=== PATIENT | male | born 1955 | race Caucasian/White ===

== ENCOUNTER 2024-12-25 20:55 | Emergency (ER) | payer MEDICARE, MEDICAID, SELFPAY ==
--- NOTE | ~2024-12-25 | CT_ITS ---
CLINICAL HISTORY: head strike CT cervical spine without contrast Comparison: None provided Findings: Fracture of the anterior upper aspect of the T1 is age indeterminate by CT and concerning for acuity and/or re-injury (imaged 21 of series 16). Mild cervical vertebral height losses appear old/chronic without acute cervical spine fracture. Reversal of the cervical lordosis. Mild anterolisthesis at C4-C5. Disc osteophyte complexes are multifocal with mild-moderate spinal canal stenosis by CT of the C5-C6 and C6-C7. Multifocal foraminal narrowing noted in the also most pronounced at C5-C6 and C6-C7. Vacuum disc phenomenon, including cervicothoracic junction. Ligament calcifications and facet arthropathy are multifocal. No paraspinal hematoma. Subcutaneous edema is noted, including dependently. Mild scarring and motion of the imaged lung apices. IMPRESSION: 1. Lucency in anterior aspect of the T1 vertebral body concerning for acuity and/or re-injury with mild height loss of the T1 compression fracture. 2. Imaged cervical vertebral height losses appear old/chronic. This document has been electronically signed by: Gordo Jacob MD on 12/26/2024 00:04:40
--- NOTE | ~2024-12-25 | CT_ITS ---
CLINICAL HISTORY: head strike CT head without contrast Comparison: None provided Findings: No acute intracranial hemorrhage accounting for motion artifacts. Mild-moderate volume loss is generalized and greater than expected for age. Mild white matter lesions nonspecific and may reflect small-vessel ischemic disease. No large arterial territorial infarction by CT, accounting for artifacts. Vascular calcifications noted. Soft tissue swelling and scalp hematoma including over the right frontal convexity. No acute skull fracture. No acute appearing or suspicious air-fluid levels of the imaged paranasal sinuses. Imaged mastoid air cells are well aerated. Previous cataract procedure changes. IMPRESSION: 1. No acute intracranial abnormality by CT. 2. Soft tissue swelling and scalp hematoma, including of the right frontal convexity. No acute skull fracture. This document has been electronically signed by: Gordo Jacob MD on 12/26/2024 00:05:44
[2024-12-25 21:03] VITALS: BP 155/81; BP 196/79; PULSE 102; PULSE 92; RESP 16; TEMP 37; O2SAT 100; BMI 31.1
--- NOTE | 2024-12-25 21:23 | PC.NURSE ---
pt ajay from [facility], a&ox2 at baseline. per ems and staff, pt had been looking out window when he hit his head against the window, pt denies pain. abrasion noted to top of head. 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 this rn placed elopement band on pt at this time for safety.
--- NOTE | 2024-12-25 22:07 | PC.NURSE ---
pt states he had urinated on himself, pt taken into room to change, pt screaming i am going to kill somebody , security at bedside, pt states he wants to leave.
--- OUTSIDE RECORDS SUMMARY | 2024-12-25 22:07 | XMS_ITS | Patient Health Record ---
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 Dining Car Name Role Phone Phyllis Meyer MD Primary Care Provider Unavailabl e Reason For Referral No Information Medications Medication SIG (Take, Route, Frequency, Duration) Notes Start Date End Date Status NovoLOG Mix 70/30 *please review for potential update for e-prescription and drug interaction check* 01/11/2015 Active SEROquel 100 MG 100 mg in the am and 400 mg at hs Oral 01/11/2015 Active Colace 100 MG Oral 01/11/2015 Acti ve Benztropine Mesylate 1 MG 1 po bid Oral 01/11/2015 Active Simvastatin 40 MG Oral 01/11/2015 Active ZyPREXA 10 MG 30 mg at hs Oral 01/11/2015 06/04/18 Active Lantus *please review f or potential update for e-prescription and drug interaction check* 01/11/2015 Active clonazePAM 1 MG 1 po bid Oral 01/11/2015 Active fluPHENAZine HCl 10 MG Oral 01/11/2015 Active Sertraline HCl 100 MG Oral 01/11/2015 Active VITAMIN D 1000 UNIT CAPS 1 PO Q AM *please review for potential update for e-prescription and drug interaction check* 01/11/2015 Active Vasotec 10 MG Oral 01/11/2015 Acti ve RisperDAL 4 MG Oral 01/11/2015 Act chace Depakote ER 250 MG 3 a day Oral 01/11/2015 900 Active Aspir-Low 81 MG 1 Po Q day Oral 01/11/2015 900 Active Problems Problem Type SNOMED Code ICD Code Onset Dates Problem Status W/U Status Risk Notes Problem Cerebral atherosclerosis (I67.2) 5 Active confirmed Problem Dizziness and giddiness (187074265) Dizziness and giddiness (R42) 5 Active confirmed Plan Of Treatment No Information Insurance Providers Payer Name Payer Address Payer Phone Subscriber Number Group Number Insured Name Patient Relationship to Insured Coverage Start Date Coverage End Date [employer] of [place] [address] [place] [id number] Santy Martino Self - patient is the insured [facility] [address] [place] [address] [id number] Santy Martino Self - patient is the insured
--- OUTSIDE RECORDS SUMMARY | 2024-12-25 22:07 | XMS_ITS | Clinical Summary ---
Author Organization [facility] Address [address] [facility] [address] [place] [id number] Care Team Providers Care Torch Heater Name Role Phone Ezra Mack Md Primary Care Provider + [phone] Allergies No known active allergies Medications trospium 20 mg tablet Take 1 tablet by mouth twice daily Give 1 tablet by mouth two times a day for urinary give on empty stomach 05/04/20 23 Active senna 8.6 mg tablet Take 1 tablet by mouth once daily as needed for constipation 05/04/20 23 Active risperiDONE 2 mg tablet Take 1 tablet by mouth daily Give 1 tablet by mouth one time a day for schizophrenia 05/10/20 23 Active ELIZABETH PEN NEEDLE 32 gauge x 5/32 Needle 02/08/20 24 Active pantoprazole 40 mg tablet,delaye d release (DR/EC) Take 40 mg by mouth daily 01/31/20 24 Active metoprolol tartrate 25 mg tablet Take 1 tablet by mouth twice daily 05/04/20 23 Active LORazepam 0.5 mg tablet Take 0.5 mg by mouth 0 24 Active lithium carbonate 450 mg tablet extended release SR Take 1 tablet by mouth at bedtime 05/09/20 23 Active TRESIBA FLEXTOUCH U-100 100 unit/mL (3 mL) Insulin Pen Administer subcutaneously 01/30/20 24 Active fluticasone furoate 50 mcg/actuation Disk with Device Inhale 100 mcg daily Asthma 05/05/20 23 Active ARNUITY ELLIPTA 100 mcg/actuation Disk with Device 11/26/19 24 Active FLUoxetine 40 mg capsule Take 40 mg by mouth daily 01/05/20 24 Active fLUoxetine 20 mg capsule Take 20 mg by mouth daily 11/26/19 24 Active TRULICITY 3 mg/0.5 mL Pen Injector 01/31/20 24 Active divalproex 500 mg tablet,delaye d release (DR/EC) Take 1 tablet by mouth every morning Give 1 tablet by mouth in the morning for schizophrenia 05/09/20 23 Active divalproex 250 mg tablet,delaye d release (DR/EC) Take 1 tablet by mouth at bedtime Give 1 tablet by mouth at bedtime for schizophrenia give with 500mg for total dose of 750mg 05/09/20 23 Active cloZAPine 100 mg tablet Take 100 mg by mouth daily Active blood sugar diagnostic (ONETOUCH ULTRA BLUE TEST STRIP) Strip three times daily 01/30/20 24 Active LIPITOR 10 mg tablet Take 1 tablet by mouth every evening Give 1 tablet by mouth in the evening for hypercholesterolemia Avoid grapefruit juice 05/04/20 23 Active aspirin 81 mg tablet,delaye d release (DR/EC) Take 1 tablet by mouth daily 05/08/20 23 Active albuterol HFA 90 mcg/actuation HFA Aerosol Inhaler Inhale 2 puffs every 4 hours as needed for wheezing or shortness of breath 05/04/20 23 Active LACTULOSE ORAL Take by mouth 05/13/20 23 Active insulin degludec (TRESIBA FLEXTOUCH U-100) 100 unit/mL (3 mL) Insulin Pen Administer 20 Units subcutaneously daily 05/05/20 23 Active clonazePAM 0.5 mg tablet Take 0.5 mg by mouth daily 04/26/20 23 Active Active Problems Problem Noted Date Diagnosed Date Thrombocytopenia 02/13/2024 Seizure-like activity 02/13/2024 OAB (overactive bladder) 02/13/2024 Aggression 02/13/2024 Peripheral neuropathy 02/13/2024 Tremor 02/13/2024 Passive suicidal ideations 10/10/2023 Overview (02/13/2024): ? Pt drank wiper fluid Type 2 diabetes mellitus without complications 1 07/05/2022 Paranoid schizophrenia 05/04/2023 Essential (primary) hypertension 05/04/2023 Dysphagia, oropharyngeal phase 05/04/2023 Alzheimer disease 05/04/2023 Resolved Problems Problem Noted Date Diagnosed Date Resolved Date Vomiting 02/13/2024 02/13/2024 Urinary hesitancy 02/13/2024 02/13/2024 Partial small bowel obstruction 02/13/2024 02/13/2024 Toxic metabolic encephalopathy 02/13/2024 02/13/2024 Hypophosphatemia 02/13/2024 02/13/2024 Hypernatremia 02/13/2024 02/13/2024 COVID-19 02/13/2024 02/13/2024 Constipation 02/13/2024 02/13/2024 Choking 02/13/2024 02/13/2024 Chest pain 02/13/2024 02/13/2024 Shock 05/04/2023 02/13/2024 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 05/04/2023 02/13/2024 Muscle weakness (generalized) 05/04/2023 02/13/2024 Metabolic encephalopathy 05/04/202304/2024 Drug induced subacute dyskinesia 05/04/2023 02/13/2024 Difficulty in walking, not e lsewhere classified 05/04/2023 02/13/2024 Cardiac arrest 05/04/2023 02/13/2024 Anemia 05/04/2023 02/13/2024 Respiratory arrest 05/04/2023 Acute respiratory failure 05/04/2023 Encounters Date Type Department Care Team Description 11/13/2024 Letter (Out) [facility] [address] [place] [id number] Mercedes Rodriguez 10/02/2024 Patient Outreach [facility] [address] [place] [phone] Marii Valadez Diabetes Mellitus; Hypertension; Appt Due from Last 3 Months Immunizations Immunization Administration Dates Next Due COVID-19 (MODERNA) Vaccine, 100mcg/0.5mL, 18YRS+, IM 04/14/2021,08/26/2020,07/29/2020 COVID-19 (MODERNA) Vaccine, 12YRS+, 50mcg/0.5mL 03/14/2023 Influenza Vaccine (Unspecified Formulation) 03/04 Pneumococ/Adult-Polysac (PPSV23) 06/25/2012 Pneumococ/Conjugate (PCV13) 06/06/2018 Surgical History Surgery Date Site/Laterality Comments APPENDECTOMY Medical History Medical History Date Comments 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 ([facility]) 05/04/2023 Acute respiratory failure ([facility]) 05/04/2023 Shock ([facility]) 05/04/2023 Metabolic encephalopathy 05/04/2023 Muscle weakness (generalized) 05/04/2023 Cardiac arrest ([facility]) 05/04/2023 Difficulty in walking, not e lsewhere classified 05/04/2023 Anemia 05/04/2023 Partial small bowel obstruct ion ([facility]) 02/13/2024 Choking 02/13/2024 Toxic metabolic encephalopathy 02/13/2024 Constipation 02/13/2024 Chest pain 02/13/2024 Hypernatremia 02/13/2024 Urinary hesitancy 02/13/2024 Covid-19 02/13/2024 Passive suicidal ideations 10/10/2023 ? Pt drank wiper fluid. seen at [facility] Social History Tobacco Use Types Packs/Day Years Used Date Smoking Tobacco: Never Assessed Sex and Gender Information Value Date Recorded Sex Assigned at Not on file Legal Sex Male 9:36 AM EDT Gender Identity Not on file Sexual Orientation Not on file Obstetrics History Plan of Treatment Health Maintenance Due Date Last Done Comments OFFICE VISIT 1957 * DIABETIC EYE EXAM 1973 * LIPID PROFILE 1973 * MICROALBUMIN 1973 HEP B INITIAL SCREENING 1975 PSA SCREEN DECISION: UPDATE W EDIT MODIFIERS 1977 DTAP/TDAP/TD VACCINE (1 - Tdap) 1978 HEP C SCREENING 1993 COLORECTAL SCREENING: UPDATE W EDIT MODIFIERS 2002 PERIODIC HEALTH REVIEW 2007 ZOSTER VACCINE (1 of 2) 2007 RSV Vaccine Adult (1 - Risk 60-74 years 1-dose series) 2017 PNEUMOCOCCAL VACCINE(S) 50+ (3 of 3 - PCV20 or PCV21) 06/06/2023 06/06/2018, 06/25/2012 COVID-19 Vaccine (5 - season) 2024 03/14/2023, 04/14/2021, 08/26/2020, Additional history exists * KIDNEY DISEASE SCREEN-(CREATININE) 05/14/2024 05/14/2023, 05/11/2023, 05/07/2023 * HEMOGLOBIN A1C (DM) 09/24/2024 03/26/2024 , 10/06/2023, 09/24/2023 FLU SEASONAL (#1) 02/02/2025 03/14/2023 HAEMOPHILUS INFLUENZA VACCINE Aged Out No longer eligible based on patient's age to complete this topic HEPATITIS A VACCINE Aged Out No longe r eligible based on patient's age to complete this topic HEPATITIS B VACCINE Aged Out No longe r eligible based on patient's age to complete this topic POLIO VACCINE Aged Out No longer elig ible based on patient's age to complete this topic RSV Vaccine //toddler Aged Out No longer eligible based on patient's age to complete this topic Procedures Procedure Name Priority Date/Time Associated Diagnosis Comments HEMOGLOBIN A1C - EXT Routine 03/26/2024 11:00 AM EDT from Last 3 Months or Most Recently Relevant to Health Maintenance Results * HEMOGLOBIN A1C - EXT (03/26/2024 11:00 AM EDT) HEMOGLOBIN A1C EXT 5.4 <=6.0 % [facility] us Outside Provider GENERAL LAB Final Result [facility] Attn: Dr. Charlie Lima [address] [facility] [place] [address] from Last 3 Months or Most Recently Relevant to Health Maintenance Insurance [place]ARE [place] Care Teams Torch Heater Relationship Specialty Start Date End Date Ezra Mack MD [address] [place] [id number] PCP - General Family Medicine 01/04/24
--- OUTSIDE RECORDS SUMMARY | 2024-12-25 22:07 | XMS_ITS ---
Author Organization [facility] Care Team Providers Care Director Of Career Resources Name Role Phone Juice Sparrow Unavailable Unavailable Grace Davis Unavailable Unavailable Cuco Ledezma Unavailable Unavailable Anthony Rollins Unavailable Unavailable Allergies and adverse reactions No Known Allergies Care Team Name Role Address Phone Organization Dates Cuco Ledezma PCP [address] [place] [address], [id number], [place] (Office): : [facility] 08/25/2024 - present Juice Sparrow [address] [facility], [place], [address], [place] (Office): : [facility] 08/25/2024 - present PennieDandreElsie Davis [address] [facility], [place], [address], [facility] (Office): : [facility] 08/25/2024 - present Anthony Rollins [address] [place], [address], [place] (Office): : : [facility] 08/25/2024 - present Goals Section Goals Description Status Target Date 1. Will have a decrease in verbal aggression thr ough next review Active 03/11/2025 2. Will have a decrease in self-harm through [facility] t review Active 03/11/2025 3. Will be compliant with al l aspects of treatment through next review Active 03/11/2025 Advanced Directives will be honored and reevaluated as needed thru next review. Active 03/11/2025 Care needs will be met at a facility of choice A ctive 03/11/2025 Resident will actively parti cipate in leisure pursuits, either independently or in recreational group activities to maintain current level of functioning through next review Active 03/11 Resident will attend at [facility] scheduled community out trip per quarter through next review Active 03/11/2025 Skin will remain in tact, fr ee from erythema, breakdown, excoriation or bruising until next review Active 03/11/2025 Will be able to make decisio ns about ADL/activity choices or preferences thru next review. Active 03/11/2025 Will be clean, dressed and w ell-groomed daily to promote dignity and psychosocial well-being thru next review. Active 03/11/20 25 Will be free of complication s related to diabetes thru next review. Active 03/11/2025 Will consume appropriate sophy unts of food and fluids to maintain nutritional status Active 03/11/2025 Will exhibit no signs or sym ptoms of aspirations such as coughing, fever, etc. thru next review. Active 03/11/2025 Will exhibit no signs or sym ptoms of gastric distress thru next review. Active 03/11/2025 Will express feelings of adj ustment to new surroundings by next review Active 03/11/2025 Will express that pain manag ement is within acceptable limits thru next review. Active 03/11/2025 Will have medication dose re duction/elimination as indicated thru next review. Active 03/11/2025 Will have no acute respiratory distress thru nex t review. Active 03/11/2025 Will have no adverse effects related to all ASA therapy thru next review. Active 03/11/2025 Will have no adverse effects related to anticonvulsant therapy thru next review. Active 03/11/2025 Will have no complications r elated to constipation thru next review. Active 03/11/2025 Will maintain good oral hygiene thru next review . Active 03/11/2025 Will meet with therapist to monitor mental statu s Active 03/11/2025 Will minimize risk for injury related to falls t hru next review. Active 03/11/2025 Will not exhibit any negative symptoms related t o trauma Active 03/11/2025 Will not experience a signif icant change in weight through next review Active 03/11/2025 Will participate with 1:1 vi sits with advocate a minimum of 1 time weekly through next review. I will also achieve and maintain a group attendance percentage of at least 50% through next review. Active 03/11/2025 Will receive assistance flora lee to meet ADL needs thru next review. Active 03/11/2025 Will remain free from compli cations related to HTN and HLD thru next review. Active 03/11/2025 Will remain free from compli cations related to Vitamin D deficiency thru next review. Active 03/11/2025 Will remain free from compli cations related to fatty liver thru next review. Active 03/11/2025 Will show improvement in mood/behavior thru next review. Active 03/11/2025 Will show no side effects of medication use thru next review. Active 03/11/2025 Will tolerate diet, texture and fluid consistency without signs and symptoms of aspiration Active 03/11/2025 Immunizations Immunization Status Vaccine Details Vaccine Code CodeSystem Date Notes TB 1 Step Mantoux (PPD) completed tuberculin skin test; unspecified formulation lotNumber: [id number] expiry: 01/09/2027 Mfg: sonafi Given 0.1 unit Right Forearm intradermally 98 CVX created date: 08/25/2024 consent date: 08/25/2024 administer ed date: 08/25/2024 Educated by on 08/25/2024 Prevnar 20 Pneumococcal conjugate (PCV20) cancelled Pneumococcal conjugate vaccine 20-valent (PCV20), polysaccharide [id number] conjugate, adjuvant, preservative free 216 CVX created date: 09/09/2024 consent date: 09/08/2024 Educated by on 09/09/2024 influenza, unspecified formulation completed influenza virus vaccine, unspecified formulation 88 CVX created date: 08/28/2024 administer ed date: 02/21/2024 SARS-COV-2 (COVID-19) vaccine, UNSPECIFIED completed SARS-COV-2 (COVID-19) vaccine, UNSPECIFIED 213 CVX created date: 08/28/2024 administer ed date: 03/14/2023 SARS-COV-2 (COVID-19) vaccine, UNSPECIFIED completed SARS-COV-2 (COVID-19) vaccine, UNSPECIFIED 213 CVX created date: 08/28/2024 administer ed date: 04/14/2021 SARS-COV-2 (COVID-19) vaccine, UNSPECIFIED completed SARS-COV-2 (COVID-19) vaccine, UNSPECIFIED 213 CVX created date: 08/28/2024 administer ed date: 08/26/2020 SARS-COV-2 (COVID-19) vaccine, UNSPECIFIED completed SARS-COV-2 (COVID-19) vaccine, UNSPECIFIED 213 CVX created date: 08/28/2024 administer ed date: 07/29/2020 Tdap completed tetanus toxoid, reduced diphtheria toxoid, and acellular pertussis vaccine, adsorbed 115 CVX created date: 08/28/2024 administer ed date: 06/11/2013 COVID-19, mRNA, LNP-S, PF, 50 mcg/0.5 mL completed SARS-COV-2 (COVID-19) vaccine, mRNA, spike protein, LNP, preservative free, 50 mcg/0.5 mL dose 312 CVX created date: 08/28/2024 administer ed date: 02/21/2024 Respiratory syncytial virus (RSV) vaccine, unspecified completed Respiratory syncytial virus (RSV) vaccine, unspecified 314 CVX created date: 08/28/2024 administer ed date: 02/21/2024 Pneumococcal conjugate PCV 13 completed pneumococcal conjugate vaccine, 13 valent 133 CVX created date: 08/28/2024 administer ed date: 06/06/2018 Hep B, adult completed hepatitis B vaccine, adult dosage 43 CVX created date: 08/28/2024 administer ed date: 01/16/2012 pneumococcal polysaccharide PPV23 completed pneumococcal polysaccharide vaccine, 23 valent 33 CVX created date: 08/28/2024 administer ed date: 06/25/2012 Medications Section Medication Name Status Code CodeSystem Dose Route Frequency Admin Type Sig Text Start Date End Date Fleet Enema Enema 7-19 GM/118ML active 402114 RXNORM 1 unit Rectal as needed PRN Insert 1 unit rectal ly every 24 hours as needed for Consti pation Use only if Bisaco dyl Suppos itory is ineffe ctive 2024 - Pantoprazole Sodium Oral Tablet Delayed Release 40 MG active 842680 RXNORM 1 tablet Oral one time a day Routine Give 1 tablet by mouth one time a day for GASTRO -ESOPH AGEAL REFLUX DISEAS E WITHOU T ESOPHA GITIS (K21.9 ) 2024 - Colace Oral Capsule 100 MG active 685015 6 RXNORM 1 capsul e Oral two times a day Routine Give 1 capsul e by mouth two times a day for Consti pation 2024 - Trulicity Subcutaneous Solution Auto-injector 3 MG/0.5ML active 583923 9 RXNORM 0.5 ml Subcuta neous one time a day Routine Inject 0.5 ml subcut aneous ly one time a day every Betty for TYPE 2 DIABET ES MELLIT US WITHOU T COMPLI CATION S (E11.9 ) 2024 - LORazepam Oral Tablet 1 MG aborted RXNORM 1 tablet Oral two times a day Routine Give 1 tablet by mouth two times a day for RESTLE SSNESS AND AGITAT ION (R45.1 ) 11/28 Aspirin Oral Tablet Chewable 81 MG active 691870 RXNORM 1 tablet Oral one time a day Routine Give 1 tablet by mouth one time a day for ESSENT IAL (PRIMA RY) HYPERT ENSION (I10) 2024 - Atorvastatin Calcium Oral Tablet 10 MG active 105036 RXNORM 1 tablet Oral at bedtime Routine Give 1 tablet by mouth at bedtim e for HYPERL IPIDEM IA, UNSPEC IFIED (E78.5 ) 2024 - Senna Oral Tablet 8.6 MG active 1 tablet Oral one time a day Routine Give 1 tablet by mouth one time a day for Consti pation 2024 - Acetaminophen Tablet 325 MG active 702575 RXNORM 2 tablet Oral as needed PRN Give 2 tablet by mouth every 6 hours as needed for Pain Do not exceed 3 grams in 24 hours. T otal 650 mg AND Give 2 tablet by mouth every 6 hours as needed for Elevat ed temp >101 Do not exceed 3 grams in 24 hours. T otal 650 mg 2024 - 293836 RXNORM 2 tablet Oral as needed PRN Give 2 tablet by mouth every 6 hours as needed for Pain Do not exceed 3 grams in 24 hours. T otal 650 mg AND Give 2 tablet by mouth every 6 hours as needed for Elevat ed temp >101 Do not exceed 3 grams in 24 hours. T otal 650 mg 2024 - Clozaril Oral Tablet 100 MG active 122974 RXNORM 1 tablet Oral three times a day Routine Give 1 tablet by mouth three times a day for SCHIZO AFFECT JACQUES DISORD ER, UNSPEC IFIED (F25.9 ) 2024 - Divalproex Sodium Oral Tablet Delayed Release 500 MG active 226902 0 RXNORM 1 tablet Oral two times a day Routine Give 1 tablet by mouth two times a day for SCHIZO AFFECT JACQUES DISORD ER, UNSPEC IFIED (F25.9 );NATALIA NTIA IN 2024 - Albuterol Sulfate HFA Inhalation Aerosol Solution 108 (90 Base) MCG/ACT active 212535 RXNORM 2 puff Inhalat ion as needed PRN 2 puff inhale orally every 4 hours as needed for Wheeze ;Short ness of Breath 2024 - FLUoxetine HCl Oral Capsule 40 MG active 715580 RXNORM 1 capsul e Oral at bedtime Routine Give 1 capsul e by mouth at bedtim e for MAJOR DEPRES SIVE DISORD ER, RECURR ENT, UNSPEC IFIED (F33.9 ) 2024 - Metoprolol Tartrate Oral Tablet 25 MG active 394943 RXNORM 0.5 tablet Oral two times a day Routine Give 0.5 tablet by mouth two times a day for ESSENT IAL (PRIMA RY) HYPERT ENSION (I10) (total dose 12.5mg ) 2024 - Lantus SoloStar Subcutaneous Solution Pen-injector 100 UNIT/ML active 916952 RXNORM 24 unit Subcuta neous one time a day Routine Inject 24 unit subcut aneous ly one time a day for TYPE 2 DIABET ES MELLIT US WITHOU T COMPLI CATION S (E11.9 ) 2024 - Glucagon HCl (rDNA) Solution Reconstituted 1 MG active 748284 RXNORM 1 mg Intramu scular as needed PRN Inject 1 mg intram uscula rly every 15 minute s as needed for hypogl ycemic episod es May repeat x1 only if ineffe ctive after re-meryl ck post 15 minute s. Maximu m 2x only. 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.9 );REST LESSNE SS A 2024 - metFORMIN HCl Oral Tablet 1000 MG active 287103 RXNORM 1 tablet Oral two times a day Routine Give 1 tablet by mouth two times a day 2024 - BD AutoShield Miscellaneous active 1 pen needle Subcuta neous one time a day Routine Inject 1 pen needle subcut aneous ly one time a day 2024 - LORazepam Oral Tablet 1 MG active RXNORM 1 mg Oral two times a day Routine Give 1 mg by mouth two times a day 2024 - Probiotic Oral Capsule complete d 1 capsul e Oral two times a day Routine Give 1 capsul e by mouth two times a day for Pneumo prabhjot for 10 Days 12/16 Cefuroxime Axetil Oral Tablet 500 MG aborted 131346 RXNORM 1 tablet Oral two times a day Routine Give 1 tablet by mouth two times a day every 7 day(s) for Pneumo prabhjot 12/08 Cefuroxime Axetil Oral Tablet 500 MG aborted 293550 RXNORM 1 tablet Oral one time only One Time Only Give 1 tablet by mouth one time only for Wheeze until 2024 18:40 12/06 Cefuroxime Axetil Oral Tablet 500 MG aborted 415551 RXNORM 500 mg Oral two times a day Routine Give 500 mg by mouth two times a day for pneumo prabhjot for 7 Days 12/08 Cefuroxime Axetil Oral Tablet 500 MG complete d 356034 RXNORM 1 tablet Oral two times a day Routine Give 1 tablet by mouth two times a day for Pneumo prabhjot for 1 Day 12/08 Cefuroxime Axetil Oral Tablet 500 MG aborted 126335 RXNORM 500 mg Oral two times a day Routine Give 500 mg by mouth two times a day for pneumo prabhjot for 6 Days 12/09 Cefuroxime Axetil Oral Tablet 500 MG aborted 223162 RXNORM 500 mg Oral two times a day Routine Give 500 mg by mouth two times a day for pneumo prabhjot until 2024 23:59 12/10 Mental Status Section Date Assessment Total Score Description 11/21/2024 BIMS 13 cognitively int act CAM 2 Delirium indica [place] PHQ-9 03 minimal depress ion 09/27/2024 CAM 0 No delirium ind icated Problems Problem # Description Date of onset Resolved Date Code CodeSystem Concern Status 1 VITAMIN D DEFICIENCY, UNSPECIFIED 11/04/[address] active 2 ACQUIRED ABSENCE OF OTHER SPECIFIED PARTS OF DIGESTIVE TRACT 08/25/[address] active 3 ALZHEIMER'S DISEASE, UNSPECIFIED 08/25/[address] active 4 DEMENTIA IN OTHER DISEASES CLASSIFIED ELSEWHERE, UNSPECIFIED SEVERITY, WITHOUT BEHAVIORAL DISTURBANCE, PSYCHOTIC DISTURBANCE, MOOD DISTURBANCE, AND ANXIETY 08/25/[address] active 5 DYSPHAGIA, ORAL PHASE 08/25/[address] active 6 FATTY (CHANGE OF) LIVER, NOT ELSEWHERE CLASSIFIED 08/25/[address] active 7 OTHER LACK OF COORDINATION 08/25/[address] active 8 PARANOID SCHIZOPHRENIA 08/25/[address] active 9 SHORTNESS OF BREATH 08/25/[address] active 10 WHEEZING 08/25/[address] active 11 CONSTIPATION, UNSPECIFIED 08/18/[address] active 12 ESSENTIAL (PRIMARY) HYPERTENSION 08/18/[address] active 13 GASTRO-ESOPHAGEAL REFLUX DISEASE WITHOUT ESOPHAGITIS 08/18/[address] active 14 HYPERLIPIDEMIA, UNSPECIFIED 08/18/[address] active 15 MAJOR DEPRESSIVE DISORDER, RECURRENT, UNSPECIFIED 08/18/[address] active 16 MILD INTERMITTENT ASTHMA, UNCOMPLICATED 08/18/[address] active 17 OTHER ABNORMALITIES OF GAIT AND MOBILITY 08/18/[address] active 18 RESTLESSNESS AND AGITATION 08/18/[address] active 19 SCHIZOAFFECTIVE DISORDER, UNSPECIFIED 08/18/[address] active 20 TYPE 2 DIABETES MELLITUS WITHOUT COMPLICATIONS 08/18/[address] active Reason for Referral No Reasons for Referral Entered Social History Social History Observation Description Start Date End Date Code Code System Current Smoking Status Tobacco smoking consumption unknown 330766280 SNOMED CT Sex Assigned At Male 1955 66911-9 [facility] Gender Identity Vital Signs Code Code System Vitals Name Values and Units Timing Information 8462-4 [facility] Blood Pressure-Diastolic Value=79 Un its=mmHg 12/26/2024 8480-6 [facility] Blood Pressure-Systolic Hsgpu=330 Un its=mmHg 12/26/2024 8867-4 [facility] Heart rate Yigir=184.0 Units=/min 12/26/2024 8310-5 [facility] Body Temperature Value=97.9 Units= F 12/26/2024 31996-1 [facility] O2 % dC Oximetry Value=98.0 Units= % 12/26/2024 9279-1 [facility] Respiratory Rate Value=22.0 Units=/m in 12/26/2024 19547-4 [facility] Pain Level Value=0.0 12/26/2024 19926-6 [facility] Weight Vtpkt=761.4 Units=Lbs 2339-0 [facility] Blood Sugar Value=92.0 Units=mg/dL 12/25/2024 8302-2 [facility] Height Value=66.5 Units=Inches 11/20/2024
--- OUTSIDE RECORDS SUMMARY | 2024-12-25 22:08 | XMS_ITS | Patient Health Record ---
Author Organization [facility] Address [address] [facility] [address] [place] [address] Care Team Providers Care Glue Specialty Supervisor Name Role Phone SHERRY KUMAR Unavailable [phone] PAOLA ROWE Unavailable [phone] Allergies No Known Allergies Reason For Referral No Information Medications Medication SIG (Take, Route, Frequency, Duration) Notes Start Date End Date Status Tresiba 100 UNIT/ML Solution as directed Subcutaneous Active Clozaril 100 MG Tablet 1 tablet Orally t hree times daily 06/24/2024 Active Pantoprazole Sodium 40 MG Tablet Delayed Release 1 tablet 1/2 to 1 hour before morning meal Orally Once a day Active PROzac 40 MG Capsule 1 capsule Orally On ce a day Active Aspirin 81 MG Tablet Delayed Release 1 tablet Orally Once a day Active Depakote ER 250 MG Tablet Extended Release 24 Hour 1 tablet Orally twice a day Active Trulicity 3 MG/0.5ML Solution Auto-injector as directed Subcutaneous Active HumaLOG 100 UNIT/ML Solution as directed Injection Active Ventolin HFA 108 (90 Base) MCG/ACT Aerosol Solution 1 puff as needed Inhalation every 4 hrs Active LORazepam 0.5 MG Tablet 1 tablet Orally twice daily now 1mg bid 06/24/2024 Active Metoprolol Tartrate 25 MG Tablet 0.5 tablet with food Orally Twice a day 06/24/2024 Active Colace 100 MG Capsule 1 capsule Orally t wice daily 06/24/2024 Active Atorvastatin Calcium 10 MG Tablet 1 tablet Orally Once a day Active Social History Social History Additional Details Category Social Info Options Details Advanced Directive Code Status Full Code Section Notes: unknown tobacco/alcohol unknown tobacco/alcohol unknown tobacco/alcohol unknown tobacco/alcohol unknown tobacco/alcohol unknown tobacco/alcohol unknown tobacco/alcohol unknown tobacco/alcohol unknown tobacco/alcohol unknown tobacco/alcohol unknown tobacco/alcohol unknown tobacco/alcohol Problems Problem Type SNOMED Code ICD Code Onset Dates Problem Status W/U Status Risk Notes Problem Type II diabetes mellitus without complication (532579745) Type 2 diabetes mellitus without complications (E11.9) Active confirmed Problem Slow transit constipation (60157942) Slow transit constipation (K59.01) Active confirmed Problem Essential hypertensi on (64904351) Essential hypertension (I10) Active confirmed Problem hypercholesterolemia (disorder) (11734168) Hypercholesteremia (E78.00) Active confirmed Problem Recurrent falls (312134304) Recurrent falls (R29.6) Active confirmed Problem Abnormal gait (80147541) Gait instability (R26.81) Active confirmed Problem Acute constipation (160595914) Acute constipation (K59.00) Active confirmed Problem Schizoaffective disorder (94430949) Chronic schizoaffective disorder (F25.9) Active confirmed Problem Acute upper respiratory infection (63949791) Acute URI (J06.9) Active confirmed Problem Long-term current us e of insulin (168153556) custodial current use of insulin (Z79.4) Active confirmed Vital Signs Heart Rate 82 /min 07/28/2024 Temperature 97.8 degrees Fahrenheit 07/28/2024 Respiratory Rate 18 /min 07/28/2024 Oximetry 96 % 07/28/2024 Blood pressure diastolic 76 mm Hg 07/28/2024 Blood pressure systolic 122 mm Hg 07/28/2024 Weight 148.2 lbs 06/20/2024 Encounters Encounter Location Date Provider Diagnosis [facility] [address] [address] 06/20/2024 PAOLA ROWE Chronic schizoaffect chace disorder F25.9 ; Type 2 diabetes mellitus without complications E11.9 ; custodial current use of insulin Z79.4 ; Essential hypertension I10 ; Recurrent falls R29.6 and Hypercholesteremia E78.00 [facility] [address] [address] 06/23/2024 MAGJOSE RAFAEL GARCIAA Type 2 diabetes emy itus without complications E11.9 ; Essential hypertension I10 and Chronic schizoaffective disorder F25.9 [facility] [address] [address] 06/24/2024 PAOLA ROWE Chronic schizoaffect chace disorder F25.9 ; Type 2 diabetes mellitus without complications E11.9 ; custodial current use of insulin Z79.4 ; Essential hypertension I10 ; Recurrent falls R29.6 and Hypercholesteremia E78.00 [facility] [address] [address] 06/30/2024 MAGOBA JOSÉ Type 2 diabetes emy itus without complications E11.9 and Gait instability R26.81 [facility] [address] [address] 07/03/2024 MAGOBA JOSÉ Type 2 diabetes emy itus without complications E11.9 ; Essential hypertension I10 ; Chronic schizoaffective disorder F25.9 and custodial current use of insulin Z79.4 [facility] [address] [address] 07/04/2024 PAOLA ROWE Acute constipation K 59.00 ; Chronic schizoaffective disorder F25.9 ; Type 2 diabetes mellitus without complications E11.9 and Gait instability R26.81 [facility] [address] [address] 07/07/2024 MAGOBA JOSÉ Type 2 diabetes emy itus without complications E11.9 ; Essential hypertension I10 ; custodial current use of insulin Z79.4 and Gait instability R26.81 [facility] [address] [address] 07/08/2024 PAOLA ROWE Type 2 diabetes emy itus without complications E11.9 ; Chronic schizoaffective disorder F25.9 ; Essential hypertension I10 ; 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.4 and Gait instability R26.81 [facility] [address] [address] 07/10/2024 MAGOBA JOSÉ Gait instability R26 .81 ; Type 2 diabetes mellitus without complications E11.9 and Essential hypertension I10 [facility] [address] [address] 07/14/2024 MAGOBA JOSÉ Type 2 diabetes emy itus without complications E11.9 and custodial current use of insulin Z79.4 [facility] [address] [address] 07/17/2024 MAGOBA JOSÉ Type 2 diabetes emy itus without complications E11.9 ; Chronic schizoaffective disorder F25.9 and Slow transit constipation K59.01 [facility] [address] [place] [address] 07/24/2024 MAGOBA JOSÉ Acute URI J06.9 and Fever, unspecified R50.9 [facility] [address] [place] [address] 07/25/2024 PAOLANEWTON BANERJEEB Acute URI J06.9 [facility] [address] [place] [address] 07/28/2024 MAGOBA JOSÉ Acute URI J06.9 and Type 2 diabetes mellitus without complications E11.9 [facility] [address] [facility] [address] [place] [address] 07/08/2024 MAGOBA JOSÉ Assessments Encounter Date Diagnosis (ICD Code) Assessment Notes Treatment Notes Treatment Clinical Notes Section Notes 06/20/2024 Chronic schizoaffective disorder (ICD-10 - F25.9) Psychiatry to see today and make recommendation s. Patient is paranoid nd does not want to eat or leave room. No suicidal thoughts - no behavioral issues reported 06/23/2024 Type 2 diabetes mellitus without complications (ICD-10 - E11.9) Monitor FS and cont with Insulin 06/24/2024 Chronic schizoaffective disorder (ICD-10 - F25.9) Patient is paranoid and does not want to eat or leave room. No suicidal thoughts - awaiting psych rec's - c/w clozaril.check cbc 06/30/2024 Type 2 diabetes mellitus without complications (ICD-10 - E11.9) Monitor FS and cont with Insulin 06/30/2024 Gait instability (ICD-10 - R26.81) Fall precautions in place, monitor closely 07/03/2024 Type 2 diabetes mellitus without complications (ICD-10 - E11.9) Monitor FS and cont with Insulin 07/04/2024 Acute constipation (ICD-10 - K59.00) give Fleets, check KUB, encouraged to drink more water 07/07/2024 Type 2 diabetes mellitus without complications (ICD-10 - E11.9) Monitor FS and cont with Insulin 07/08/2024 Type 2 diabetes mellitus without complications (ICD-10 - E11.9) Monitor FS and cont with Insulin 07/08/2024 Chronic schizoaffective disorder (ICD-10 - F25.9) psych consult appreciated - start depakote, increase ativan and check clozaril level 07/10/2024 Gait instability (ICD-10 - R26.81) Fall precautions in place, monitor closely 07/14/2024 Type 2 diabetes mellitus without complications (ICD-10 - E11.9) Monitor FS and cont with Insulin 07/17/2024 Type 2 diabetes mellitus without complications (ICD-10 - E11.9) Monitor FS and cont with Insulin 07/17/2024 Chronic schizoaffective disorder (ICD-10 - F25.9) Cont with Depakote 07/24/2024 Fever, unspecified (ICD-10 - R50.9) +cough, Ordered labs and CXR; Covid/flu swab 07/24/2024 Acute URI (ICD-10 - J06.9) +cough, Ordered labs and CXR; Covid/flu swab 07/25/2024 Acute URI (ICD-10 - J06.9) Cxray and labs okay - awaiting flu and covid tests. Monitor vitals and O2 sats and resp effort. c/w supportive care. 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) FS mainly 200's; monitor labs closely 07/10/2024 Type 2 diabetes mellitus without complications (ICD-10 - E11.9) Monitor FS and cont with Insulin 07/08/2024 Essential hypertensi on (ICD-10 - I10) SBP stable, cont with plan 07/07/2024 Essential hypertensi on (ICD-10 - I10) SBP stable, cont with plan 07/04/2024 Chronic schizoaffective disorder (ICD-10 - F25.9) awaiting psych consult 07/03/2024 Essential hypertensi on (ICD-10 - I10) SBP stable, cont with plan 06/23/2024 Essential hypertensi on (ICD-10 - I10) SBP stable, cont with plan 06/24/2024 Type 2 diabetes mellitus without complications (ICD-10 - E11.9) Monitor sugars on tresiba and trulicity- have been in 100's-200's 06/20/2024 Type 2 diabetes mellitus without complications (ICD-10 - E11.9) Monitor sugars on tresiba and trulicity 06/20/2024 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 (ICD-10 - Z79.4) c/w tresiba 06/23/2024 Chronic schizoaffective disorder (ICD-10 - F25.9) poor insight and judgement, cont with plan and F/U with psych 07/03/2024 Chronic schizoaffective disorder (ICD-10 - F25.9) poor insight and judgement, cont with plan and F/U with psych 06/24/2024 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 (ICD-10 - Z79.4) c/w tresiba 07/04/2024 Type 2 diabetes mellitus without complications (ICD-10 - E11.9) encouraged him to allow us to check sugars 07/10/2024 Essential hypertensi on (ICD-10 - I10) SBP stable, cont with plan 07/08/2024 custodial current us e of insulin (ICD-10 - Z79.4) c/w tresiba 07/07/2024 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 (ICD-10 - Z79.4) c/w tresiba 07/04/2024 Gait instability (ICD-10 - R26.81) encouraged to work with therapists 07/07/2024 Gait instability (ICD-10 - R26.81) Fall precautions in place, monitor closely 07/08/2024 Gait instability (ICD-10 - R26.81) Fall precautions in place, monitor closely 07/03/2024 custodial current us e of insulin (ICD-10 - Z79.4) c/w tresiba 06/24/2024 Essential hypertensi on (ICD-10 - I10) Monitor BP's on curent meds 06/20/2024 Essential hypertensi on (ICD-10 - I10) Monitor BP's on curent meds 06/20/2024 Recurrent falls (ICD-10 - R29.6) therapy to work with him - uses walker 06/24/2024 Recurrent falls (ICD-10 - R29.6) therapy to work with him - uses walker 06/20/2024 Hypercholesteremia (ICD-10 - E78.00) c/w statin 06/24/2024 Hypercholesteremia (ICD-10 - E78.00) c/w statin 06/20/2024 Other diet needs to be modified as no teeth Plan Of Treatment No Information Insurance Providers Payer Name Payer Address Payer Phone Subscriber Number Group Number Insured Name Patient Relationship to Insured Coverage Start Date Coverage End Date Medicare Of [place] [address] [place] [id number] Santy Martino Self - patient is the insured [place] [address] [place] [id number] Santy Martino Self - patient is the insured Medical (General) History Medical History History ICD Code schizoaffective disorder Type 2 duabets hyperlipidemia Essential Hypertension suicidal behavior frequent falls
--- OUTSIDE RECORDS SUMMARY | 2024-12-25 22:08 | XMS_ITS ---
Author Organization [facility] Care Team Providers Care Inspector Watch Train Name Role Phone Fannie Billings Unavailable Unavailable Kaylyn Castelan Unavailable Unavailable Janay Sinclair Unavailable Unavailable Tabba, Blount Unavailable Unavailable Allergies and adverse reactions No Known Allergies Care Team Name Role Address Phone Organization Dates Fannie Billings PCP [address] [address], [facility] (Office): : [facility] 05/04/2023 - 05/30/2023 Kaylyn Castelan [address] [address], [facility] (Office): : [facility] 05/04/2023 - 05/30/2023 Janay Sinclair [address] [place], [place], [facility], [facility] (Office): : [facility] 05/04/2023 - 05/30/2023 Jose Alejandro Tabba [address] [place] [address], [facility], [facility] (Office): [facility] 05/04/2023 - 05/30/2023 Immunizations Immunization Status Vaccine Details Vaccine Code CodeSystem Date Notes Influenza completed Influenza, split virus, trivalent, injectable, contains preservative 141 CVX created date: 05/07/2023 administere d date: 03/14/2023 Pneumococcal Conjugate Vaccine (PCV13) completed pneumococcal conjugate vaccine, 13 valent 133 CVX created date: 05/07/2023 administere d date: 06/06/2018 Pneumococcal Polysaccharide Vaccine (PPSV23) completed pneumococcal polysaccharide vaccine, 23 valent 33 CVX created date: 05/07/2023 administere d date: 06/25/2012 SARS-COV-2 (COVID-19) completed SARS-COV-2 (COVID-19) vaccine, mRNA, spike protein, LNP, preservative free, 100 mcg/0.5mL dose or 50 mcg/0.25mL dose Mfg: Moderna 2 Step 2 of Multi-step with next step required 207 CVX created date: 05/07/2023 administere d date: 08/26/2020 SARS-COV-2 (COVID-19) completed SARS-COV-2 (COVID-19) vaccine, mRNA, spike protein, LNP, preservative free, 100 mcg/0.5mL dose or 50 mcg/0.25mL dose Mfg: Moderna 1 Step 1 of Multi-step with next step required 207 CVX created date: 05/07/2023 administere d date: 07/29/2020 SARS-COV-2 (COVID-19 BOOSTER) completed SARS-COV-2 (COVID-19) vaccine, mRNA, spike protein, LNP, preservative free, 50 mcg/0.5 mL dose Mfg: spikevax moderna 312 CVX created date: 05/07/2023 administere d date: 03/14/2023 SARS-COV-2 (COVID-19 BOOSTER) completed SARS-COV-2 (COVID-19) vaccine, mRNA, spike protein, LNP, preservative free, 100 mcg/0.5mL dose or 50 mcg/0.25mL dose Mfg: Moderna Booster # 1 207 CVX created date: 05/07/2023 administere d date: 04/14/2021 Medications Section Medication Name Status Code CodeSystem Dose Route Frequency Admin Type Sig Text Start Date End Date Insulin Degludec FlexTouch Subcutaneous Solution Pen-injector 100 UNIT/ML active 20 unit Subcuta neous one time a day Routine Inject 20 unit subcut aneous ly one time a day for diabet es 2022 - Trospium Chloride Oral Tablet 20 MG active 722514 RXNORM 1 tablet Oral two times a day Routine Give 1 tablet by mouth two times a day for urinar y give on empty stomac h 2022 - Fleet Enema Enema 7-19 GM/118ML active 017787 RXNORM 1 unit Rectal as needed PRN Insert 1 unit rectal ly every 24 hours as needed for Consti pation Use only if Bisaco dyl Suppos itory is ineffe ctive 2022 - Acetaminophen Tablet 325 MG active 252932 RXNORM 2 tablet Oral as needed PRN Give 2 tablet by mouth every 6 hours as needed for Pain Do not exceed 3 grams in 24 hours. T otal 650 mg AND Give 2 tablet by mouth every 6 hours as needed for Elevat ed temp >101 Do not exceed 3 grams in 24 hours. T otal 650 mg 2022 - 031990 RXNORM 2 tablet Oral as needed PRN Give 2 tablet by mouth every 6 hours as needed for Pain Do not exceed 3 grams in 24 hours. T otal 650 mg AND Give 2 tablet by mouth every 6 hours as needed for Elevat ed temp >101 Do not exceed 3 grams in 24 hours. T otal 650 mg 2022 - Senna Tablet 8.6 MG active 344651 RXNORM 1 tablet Oral as needed PRN Give 1 tablet by mouth every 24 hours as needed for Consti pation 2022 - Lipitor Tablet 10 MG active 343368 RXNORM 1 tablet Oral in the evening Routine Give 1 tablet by mouth in the evenin g for hyperc holest erolem ia Avoid grapef ruit juice 2022 - Fluticasone Furoate Inhalation Aerosol Powder Breath Activated 50 MCG/ACT active 9948542 RXNORM 100 mcg Inhalat ion one time a day Routine 100 mcg inhale orally one time a day for asthma 2022 - Albuterol Sulfate HFA Inhalation Aerosol Solution 108 (90 Base) MCG/ACT active 538894 RXNORM 2 puff Inhalat ion as needed PRN 2 puff inhale orally every 4 hours as needed for wheezi ng/SOB 2022 - Metoprolol Tartrate Oral Tablet 25 MG active 644339 RXNORM 1 tablet Oral two times a day Routine Give 1 tablet by mouth two times a day for hypert ension 2022 - Aspirin Oral Tablet Delayed Release 81 MG active 533182 RXNORM 1 tablet Oral in the morning Routine Give 1 tablet by mouth in the mornin g for heart health 2022 - Divalproex Sodium Oral Tablet Delayed Release 500 MG active 7723505 RXNORM 1 tablet Oral in the morning Routine Give 1 tablet by mouth in the mornin g for schizo phreni a AND Give 1 tablet by mouth at bedtim e for schizo phreni a give with 125mg for total dose of 750mg total 2022 - 6694616 RXNORM 1 tablet Oral at bedtime Routine Give 1 tablet by mouth in the mornin g for schizo phreni a AND Give 1 tablet by mouth at bedtim e for schizo phreni a give with 125mg for total dose of 750mg total 2022 - Divalproex Sodium Oral Tablet Delayed Release 250 MG active 7402472 RXNORM 1 tablet Oral at bedtime Routine Give 1 tablet by mouth at bedtim e for schizo phreni a give with 500mg for total dose of 750mg 2022 - risperiDONE Oral Tablet 2 MG active 117165 RXNORM 1 tablet Oral one time a day Routine Give 1 tablet by mouth one time a day for schizo phreni a 2022 - Sang[place]e Carbonate ER Oral Tablet Extended Release 450 MG active 494416 RXNORM 1 tablet Oral at bedtime Routine Give 1 tablet by mouth at bedtim e for schizo phreni a 2022 - cloZAPine Oral Tablet 25 MG active 625576 RXNORM 1 tablet Oral at bedtime Routine Give 1 tablet by mouth at bedtim e for schizo phreni a 2022 - Lactulose Oral Solution 20 GM/30ML active 498933 RXNORM 20 gram Oral as needed PRN Give 20 gram by mouth every 8 hours as needed for consti pation AND Give 20 gram by mouth one time a day for Consti pation 2022 - 060828 RXNORM 20 gram Oral one time a day Routine Give 20 gram by mouth every 8 hours as needed for consti pation AND Give 20 gram by mouth one time a day for Consti pation 2022 - Dulaglutide Subcutaneous Solution Pen-injector 3 MG/0.5ML active 2484048 RXNORM 1.5 mg Subcuta neous one time a day Routine Inject 1.5 mg subcut aneous ly one time a day every Tue for diabet es 2022 - Mental Status Section Date Assessment Total Score Description 05/30/2023 CAM 0 No delirium ind icated 05/13/2023 BIMS 15 cognitively int act PHQ-9 00 Problems Problem # Description Date of onset Resolved Date Code CodeSystem Concern Status 1 ACUTE RESPIRATORY FAILURE WITH HYPOXIA [address] active 2 ALZHEIMER'S DISEASE, UNSPECIFIED [address] active 3 ANEMIA, UNSPECIFIED [address] active 4 CARDIAC ARREST, CAUSE UNSPECIFIED [address] active 5 DIFFICULTY IN WALKING, NOT ELSEWHERE CLASSIFIED [address] active 6 DRUG INDUCED SUBACUTE DYSKINESIA [address] active 7 DYSPHAGIA, OROPHARYNGEAL PHASE [address] active 8 DYSPHAGIA, UNSPECIFIED [address] active 9 ESSENTIAL (PRIMARY) HYPERTENSION [address] active 10 METABOLIC ENCEPHALOPATHY [address] active 11 MUSCLE WEAKNESS (GENERALIZED) [address] active 12 OTHER CEREBRAL INFARCTION DUE TO OCCLUSION OR STENOSIS OF SMALL ARTERY [address] active 13 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 14 RESPIRATORY ARREST [address] active 15 SHOCK, UNSPECIFIED [address] active 16 TYPE 2 DIABETES MELLITUS WITHOUT COMPLICATIONS [address] active Reason for Referral No Reasons for Referral Entered Social History Social History Observation Description Start Date End Date Code Code System Current Smoking Status Tobacco smoking consumption unknown 317447476 SNOMED CT Sex Assigned At Male 1955 87013-2 [facility] Gender Identity Vital Signs Code Code System Vitals Name Values and Units Timing Information 06542-2 [facility] Pain Level Value=0.0 05/30/2023 8462-4 [facility] Blood Pressure-Diastolic Value=63 Un its=mmHg 05/30/2023 8480-6 [facility] Blood Pressure-Systolic Bkmqq=116 Un its=mmHg 05/30/2023 8310-5 [facility] Body Temperature Value=98.6 Units= F 05/30/2023 8867-4 [facility] Heart rate Value=84.0 Units=/min 52269-5 [facility] O2 % dC Oximetry Value=97.0 Units= % 05/30/2023 2339-0 [facility] Blood Sugar Value=79.0 Units=mg/dL 05/30/2023 9279-1 [facility] Respiratory Rate Value=18.0 Units=/m in 05/29/2023 57756-4 [facility] Weight Rbhpd=561.6 Units=Lbs 8302-2 [facility] Height Value=64.0 Units=Inches 05/05/2023
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
--- NOTE | 2024-12-25 23:43 | PC.NURSE ---
report given to Oralia MASSEY at [facility]
[2024-12-26 01:03] VITALS: BP 196/79; PULSE 92; RESP 16; TEMP 37; O2SAT 100
== END 2024-12-26 01:05 | disposition home or self-care (01) ==
PROVIDERS: Emergency Provider Emergency Medicine
DX: S00.80XA Unspecified superficial injury of other part of head, initial encounter (principal); W22.8XXA Striking against or struck by other objects, initial encounter; R45.88 Nonsuicidal self-harm; G30.9 Alzheimer's disease, unspecified; F02.811 Dementia in other diseases classified elsewhere, unspecified severity, with agitation; Y93.89 Activity, other specified; Y92.89 Other specified places as the place of occurrence of the external cause; Y99.8 Other external cause status; Z79.899 Other long term (current) drug therapy
CPT/HCPCS: 70450; 72125; 99284

== ENCOUNTER → 2024-12-25 21:20 | Outpatient (BNV) | payer MEDICARE, MEDICAID, SELFPAY | PROVIDERS: Emergency Provider Emergency Medicine; Visit Provider Radiology Neuroradiology | DX: S09.90XA Unspecified injury of head, initial encounter (principal); S00.03XA Contusion of scalp, initial encounter | CPT/HCPCS: 70450; 72125 ==

== ENCOUNTER 2024-12-26 19:19 | Emergency (ER) | payer MEDICARE, MEDICAID, SELFPAY ==
[2024-12-26 19:31] VITALS: BP 140/66; PULSE 114; O2SAT 97
[2024-12-26 19:32] VITALS: BP 149/77; PULSE 106; RESP 20; TEMP 36.6; O2SAT 100; BMI 25.5; BMI 28.5
--- NOTE | 2024-12-26 20:00 | PC.NURSE ---
Unable to complete of assessment secondary to pts inability to answer questions r/t pmhx. Pt changed into [facility] health clothing and sitter placed at bedside.
[2024-12-26 20:24] LABS: MANUAL DIFF FLAG NO
[2024-12-26 20:24] LABS: Appearance Urine Clear; Glucose Urine UA 100 mg/dL (Negative); PH 7.5 (5.0-9.0); Specific Gravity - Urine 1.020 (1.005-1.025)
[2024-12-26 20:26] LABS: Hematocrit 41.0 % (42.0-52.0); Hemoglobin 14.3 g/dl (14.0-18.0); Imm Gran Abs Auto 0.05 X10*3/uL (0.00-0.03); Imm Gran Pct Auto 0.6 % (0.0-0.4); Lymphocytes Absolute Auto 1.5 X10*3/uL (1.2-4.9); Mean Corpuscular HGB Conc 34.9 g/dl (31.0-36.0); Mean Corpuscular Hemoglobin 30.9 pg (27.0-33.0); Mean Corpuscular Volume 88.6 fL (80.0-98.0); NRBC Abs Auto 0.000 X10*3/uL (0.0-0.012); NRBC Pct Auto 0.0 /100WBC (0.0-0.2); Platelet Count 158 X10*3/uL (160-400); Red Blood Count 4.63 X10*6/uL (4.60-5.80); White Blood Count 8.2 X10*3/uL (4.8-10.8)
[2024-12-26 20:33] LABS: Cannabinoid Screen Urine Not Detected (Not Detect)
--- NOTE | 2024-12-26 20:34 | ED_ITS ---
HPI - Psych General Chief Complaint: Psychiatric Symptoms Stated Complaint: HI, ?SI Time Seen by Provider: 12/26/24 20:09 Source: patient and RN notes reviewed Mode of arrival: EMS Limitations: no limitations History of Present Illness ED Provider: HPI Narrative: Patient is 69 years old came from [facility] with background history of Alzheimer dementia schizoaffective disorder paranoia your type 2 diabetes anxiety essential hypertension comes here as hearing nonsensical voices patient was here last night also when he hit his head do the window as self harm CT scan of the head was negative patient's history of feels same asking for some medication to relax and sleep Related Data Allergies Allergy/AdvReac Type Severity Reaction Status Date / Time No Known Allergies Allergy Verified 12/26/24 19:39 Review of Systems 2 Review of Systems: Yes all other systems are reviewed and are negative [facility] Social History Social History Advance Directives: No Advance Directives Information Provided: No Physical Exam 2 Vital Signs: Vital Signs: Last Vital Signs Temp 97.8 F 12/26/24 19:32 Pulse 106 H 12/26/24 19:32 Resp 20 12/26/24 19:32 BP 149/77 H 12/26/24 19:32 Pulse Ox 100 12/26/24 19:32 O2 Del Method Room Air 12/26/24 19:32 BMI result Body Mass Index 28.5 Appearance: Alert. Oriented X3. No acute distress anxious Eyes: PERRLA, No Nystagmus ENT: Pharynx normal. Oral Mucosa moist Neck: Normal inspection. Neck supple. CVS: Normal heart rate and rhythm. Pulses normal. Respiratory: No respiratory distress. Equal air entry bilateral, no wheezing/rales/rhonchi Abdomen: Soft and nontender. Bowel sounds are present, no mass palpable, no CVA tenderness Skin: Skin warm and dry. Normal skin color. Normal skin turgor. Extremities: No lower extremity edema. No calf tenderness psych: Feels restless and very anxious closing his eyes denies any hallucination at this time denies any SI or HI at this time Neuro: Oriented X 3. No motor deficit. No sensory deficit.No cerebellar signs , cranial nerves II-XII intact Medications Administered Discontinued Medications Generic Name Dose Route Start Last Admin Trade Name Freq PRN Reason Stop Dose Admin Lorazepam 1 mg 12/26/24 20:29 12/26/24 21:24 Lorazepam 1 Mg Tablet PO 12/26/24 20:30 1 mg ONCE ONE Administration Medical Decision Making Medical Decision Making [facility] Narrative: Patient with schizophrenia with increased anxiety seen bag care team advised to return to the facility no suicidal ideation no homicidal feeling patient calm and cooperative in the ED Lab Data MDM Lab Attestation statement: I reviewed the patient's lab results. 12/26/24 19:43 12/26/24 19:43 Labs: Lab Results 12/26/24 12/26/24 12/26/24 Range/Units 19:43 20:07 20:08 WBC 8.2 (4.8-10.8) X10*3/uL RBC 4.63 (4.60-5.80) X10*6/uL Hgb 14.3 (14.0-18.0) g/dl Hct 41.0 L (42.0-52.0) % MCV 88.6 (80.0-98.0) fL MCH 30.9 (27.0-33.0) pg MCHC 34.9 (31.0-36.0) g/dl RDW 15.0 (11.0-16.0) % Plt Count 158 L (160-400) X10*3/uL MPV 9.2 L (9.4-12.4) fL Immature Gran % (Auto) 0.6 H (0.0-0.4) % Neut % (Auto) 71.1 (45-73) % Lymph % (Auto) 18.7 L (20-40) % Tripp % (Auto) 8.8 (2-11) % Eos % (Auto) 0.6 (0-4) % Baso % (Auto) 0.2 (0-2) % Lymph # (Auto) 1.5 (1.2-4.9) X10*3/uL Tripp # (Auto) 0.7 (0.1-1.2) X10*3/uL Eos # (Auto) 0.1 (0.0-0.4) X10*3/uL Baso # (Auto) 0.0 (0.0-0.2) X10*3/uL Abs Immat Gran (auto) 0.05 H (0.00-0.03) X10*3/uL Absolute Neuts (auto) 5.8 (2.0-8.3) x10*3/uL Absolute Nucleated RBC 0.000 (0.0-0.012) X10*3/uL Nucleated RBC % (auto) 0.0 (0.0-0.2) /100WBC Sodium 143 (135-145) mmol/L Potassium 4.2 (3.3-5.1) mmol/L Chloride 109 H (96-108) mmol/L Carbon Dioxide 20 L (22-29) mmol/L Anion Gap 18 (12-20) BUN 12 (9-16) mg/dL Creatinine 0.78 (0.5-1.4) mg/dL Estim Creat Clear Calc 88.4 Estimated GFR > 60 Random Glucose 220 H (60-115) mg/dL Calcium 9.5 (8.4-10.2) mg/dL Urine Color Yellow Urine Appearance Clear Urine pH 7.5 (5.0-9.0) Ur Specific [place] 1.020 (1.005-1.025) Urine Protein Negative (Neg-Trace) mg/dL Urine Glucose (UA) 100 H (Negative) mg/dL Urine Ketones 15 (Negative) mg/dL Urine Blood Negative (Negative) Urine Nitrite Negative (Negative) Ur Leukocyte Esterase Negative (Negative) Urine Opiates Screen Not Detected (Not Detect) Ur Buprenorphine Scrn Not Detected (Not Detect) ng/mL Ur Oxycodone Screen Not Detected (Not Detect) ng/mL Urine Methadone Screen Not Detected (Not Detect) ng/mL Urine Fentanyl Screen Not Detected (Not Detect) Ur Barbiturates Screen Not Detected (Not Detect) Ur Phencyclidine Scrn Not Detected (Not Detect) Ur Amphetamines Screen Not Detected (Not Detect) U Benzodiazepines Scrn POSITIVE H (Not Detect) Urine Cocaine Screen Not Detected (Not Detect) U Marijuana (THC) Screen Not Detected (Not Detect) Discharge Plan Discharge Clinical Impression: Chronic schizophrenia, Acute anxiety Patient Disposition: Home, Self-Care Instructions: Schizophrenia (ED), Anxiety (ED) Additional Instructions: Continue take your medications and follow up with your therapist Print Language: Turkish
[2024-12-26 20:43] LABS: Anion Gap 18 (12-20); Blood Urea Nitrogen 12 mg/dL (9-16); Calcium 9.5 mg/dL (8.4-10.2); Carbon Dioxide 20 mmol/L (22-29); Chloride 109 mmol/L (96-108); Creatinine Clr Calc Pharmacy 88.4; Estimated Glomerular Filt Rate > 60; Potassium 4.2 mmol/L (3.3-5.1); Sodium 143 mmol/L (135-145)
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
--- NOTE | 2024-12-26 23:31 | PC.NURSE ---
This typewriter operator automatic assumed care of this Pt at 0015.
--- NOTE | 2024-12-27 01:16 | PC.NURSE ---
Report given to nurse Bernard at [facility], Pt will be transported back via ambulance.
[2024-12-27 01:20] VITALS: BP 141/72; PULSE 111; RESP 18; TEMP 36.7; O2SAT 98
[2024-12-27 01:25] VITALS: BP 141/72; PULSE 111; RESP 18; TEMP 36.7; O2SAT 98
== END 2024-12-27 02:50 | disposition home or self-care (01) ==
PROVIDERS: Emergency Provider Internal Medicine
DX: F20.0 Paranoid schizophrenia (principal); E11.9 Type 2 diabetes mellitus without complications; F41.1 Generalized anxiety disorder; F43.0 Acute stress reaction; Z51.81 Encounter for therapeutic drug level monitoring; Z79.899 Other long term (current) drug therapy
CPT/HCPCS: 36415; 80048; 80307; 81003; 85025; 99284

== ENCOUNTER 2025-02-14 08:28 | Inpatient (IN) | payer MEDICARE, MEDICAID, SELFPAY ==
[2025-02-14] VITALS (16 sets, daily range): BP systolic 123–173; BP diastolic 62–88; PULSE 70–114; RESP 14–17; TEMP 36.2–37.4; O2SAT 92–100; BMI 23.2
--- NOTE | 2025-02-14 | ECG_ITS ---
Test Reason : FALL Blood Pressure : */* mmHG Vent. Rate : 80 BPM Atrial Rate : 80 BPM P-R Int : 122 ms QRS Dur : 78 ms QT Int : 372 ms P-R-T Axes : 73 -8 40 degrees QTcB Int : 429 ms Normal sinus rhythm Nonspecific ST and T wave abnormality Abnormal ECG No previous ECGs available Referred By: Generic ED Physician Electronically Signed By: DEION DAVIES MD
--- NOTE | ~2025-02-14 | XR_ITS ---
EXAMINATION: XR CHEST CLINICAL INFORMATION: cough COMPARISON: None available. TECHNIQUE: Frontal view of the chest was obtained. FINDINGS: Central and medial left hemidiaphragm is obscured. Lungs are clear otherwise. Heart size normal. XR/XR chest 1V IMPRESSION: Left basilar atelectasis, pneumonia not excluded Electronically signed by: Nick Montana MD 02/16/2025 03:39 PM EDT RP
--- NOTE | ~2025-02-14 | XR_ITS ---
CLINICAL HISTORY: Worsening oxygen saturation 1 view chest x-ray Comparison: CT/SR - CT ANGIO CHEST PE PROTOCOL - 02/16/25 16:59 EDT CR/SR - XR CHEST 1 VIEW - 02/16/25 15:27 EDT Findings: Normal heart size. Increased haziness in the right lower lobe compared to 02/16/2025 chest radiograph, which may represent a developing pneumonia. No pleural effusions. Degenerative changes of both shoulders. IMPRESSION: Possible developing pneumonia in the right lower lobe This document has been electronically signed by: Aureliano Nielsen MD on 02/18/2025 02:20:07
--- NOTE | ~2025-02-14 | CT_ITS ---
CLINICAL HISTORY: hypoxia, AMS CTA chest with 3-D postprocessing Comparison: CR/SR - XR CHEST 1 VIEW - 02/16/25 15:27 EDT Findings: Study quality is adequate for the diagnosis of pulmonary embolism. No pulmonary embolism. Heart size within normal limits. RV/LV ratio is normal. Moderate calcified coronary artery disease. Trace pericardial fluid. No aortic dissection or aneurysm. Mild calcified atherosclerotic disease. No lymphadenopathy. Bronchial wall thickening with a prominent amount of secretions in the airways, greatest in the left lower lobe. There is consolidation in the left lower lobe. Mild amount of ground-glass opacity in the left upper and lower lobes. No pneumothorax or pleural effusion. No acute osseous or soft tissue abnormality. No acute pathology in the imaged portion of the upper abdomen. Impression: No pulmonary embolism. Prominent amount of secretions in the airways which is greatest in the left lower lobe. Bronchial wall thickening may indicate bronchitis. Left lower lobe consolidation could be atelectasis or pneumonia. Mild amount of ground-glass opacity in the left upper and lower lobes, likely infectious/inflammatory. This document has been electronically signed by: Lou Courtney MD on 02/16/2025 18:14:38
--- NOTE | ~2025-02-14 | XR_ITS ---
EXAMINATION: XR CHEST CLINICAL INFORMATION: cough COMPARISON: Chest 02/18/2025. TECHNIQUE: Frontal view of the chest was obtained. FINDINGS: The lungs are well-expanded and clear of acute pneumonic process. Prominent bilateral parahilar bronchial thickening likely reactive airway disease. The heart size and pulmonary vascularity is normal. There is moderate spondylosis dorsal spine. No aggressive lytic or sclerotic process seen. XR/XR chest 1V IMPRESSION: No acute cardiopulmonary process. Electronically signed by: Darell Fontaine MD 04/20/2025 09:45 AM EST
--- NOTE | ~2025-02-14 | CT_ITS ---
CLINICAL HISTORY: FALLS W HEAD STRIKE CT cervical spine without contrast Comparison: CT/SR - CT CERVICAL SPINE WO IV CON - 7 22:20 EDT Findings: C4-5: Grade 1 anterolisthesis C4 over C5. Mild anterior spurring. Moderate bilateral spondylitic neural foraminal stenosis. C5-6: Moderate to severe DJD. Moderate anterior bridging syndesmophyte. Mild left and no significant right spondylitic neural foraminal stenosis. C6-7: Moderate to severe DJD with moderate anterior bridging syndesmophyte. Mild right and moderate left spondylitic neural foraminal stenosis. Mild osteopenia. No acute findings on limited view of the intracranial contents. No cervical fluid collections or masses. No consolidation or effusion at the lung apices. Re-identified shallow cleft left of midline at the base of the odontoid, coronal image 25 of 65; anatomic variant, stable. C3-4: Mild anterior spurring. C7-T1: Moderate DJD. Moderate anterior spurring. IMPRESSION: 1. No acute cervical spine findings. 2. Grade 1 anterolisthesis C4 over C5. 3. Moderate to severe degenerative changes at C5-6 and C6-7 with associated neural foraminal stenosis. 4. Moderate bilateral neural foraminal stenosis at C4-5. This document has been electronically signed by: Andrei Taylor MD on 02/14/2025 13:25:13
--- NOTE | ~2025-02-14 | CT_ITS ---
CLINICAL HISTORY: MULTIPLE FALLS HEAD STRIKE CT head without contrast Comparison: CT/SR - CT HEAD/BRAIN WO IV CON - 12/25/24 22:20 EDT Findings: No intra-axial mass, midline shift, hydrocephalus, or acute hemorrhage. Moderate cerebral atrophy. Mild heterogeneous low attenuation in the periventricular white matter. The visualized paranasal sinuses and mastoid air cells are normal. The orbits are within normal limits. No skull fracture. Left frontal small subcutaneous cephalohematoma. Near-complete opacification of the left sphenoid sinus. IMPRESSION: 1. No acute intracranial findings. 2. Moderate cerebral atrophy. 3. Mild chronic periventricular microvascular disease. 4. Left sphenoid sinus disease. This document has been electronically signed by: Andrei Taylor MD on 02/14/2025 13:28:02
--- NOTE | ~2025-02-14 | CT_ITS ---
CLINICAL HISTORY: AMS, recent fall CT head without contrast Comparison: CT/REG/SR - CT HEAD/BRAIN WO IV CON - 02/14/25 11:[address]/SR - CT HEAD/BRAIN WO IV CON - 12/25/24 22:20 EDT Findings: No acute hemorrhage. No extra-axial fluid collection. Unchanged prominence of the ventricles and extra-axial spaces due to atrophy of the brain parenchyma. No hydrocephalus, mass-effect or herniation. Paulson-white differentiation is maintained. There is patchy hypoattenuation of the periventricular and deep white matter, which is most likely the sequela of mild chronic small vessel ischemic disease and is similar to the prior studies. No acute orbital pathology. Right frontal scalp soft tissue swelling. Left frontal scalp hematoma measuring 6 mm in thickness with overlying skin kirsten, unchanged from the prior study on 02/14/25. No fracture. Mucosal thickening and fluid in the left sphenoid sinus, unchanged from the prior study on 02/14/25. The other visualized paranasal sinuses are predominantly clear. The mastoid air cells are clear. Impression: No acute intracranial findings. This document has been electronically signed by: Lou Courtney MD on 02/16/2025 18:17:42
--- NOTE | ~2025-02-14 | CT_ITS ---
CLINICAL HISTORY: Obtundation, recent head trauma CT head without contrast Comparison: CT/SR - CT HEAD/BRAIN WO IV CON - 02/16/25 16:[address]/REG/SR - CT HEAD/BRAIN WO IV CON - 02/14/25 11:58 EDT Findings: No intra-axial mass, midline shift, hydrocephalus, or acute hemorrhage. Age related atrophy and white matter disease. Mastoid air cells are aerated. Left sphenoid sinus disease. The orbits are unremarkable. Left frontal scalp hematoma with overlying kirsten. There is no acute fracture. IMPRESSION: No acute intracranial findings and no significant change from 02/16/2025 CT. This document has been electronically signed by: Aureliano Nielsen MD on 02/18/2025 02:26:46
--- NOTE | ~2025-02-14 | US_ITS ---
CLINICAL HISTORY: swelling Venous duplex ultrasound left upper extremity Comparison: None provided Findings: Diffuse soft tissue edema limits evaluation. Distally vein not visualized. Occlusive thrombus noted in the cephalic vein Accessible deep venous segments are fully compressible with normal Doppler color flow and spectral tracings. IMPRESSION: Negative for left upper extremity deep vein thrombosis. Positive for left upper extremity superficial vein thrombosis. This document has been electronically signed by: Yogi Gilman MD on 03/03/2025 19:03:32
--- OUTSIDE RECORDS SUMMARY | 2025-02-14 09:13 | XMS_ITS | Encounter Summary ---
Author Organization [employer] Address [address] [place] [address] Care Team Providers Care Magazine Hand Name Role Phone Cuco Ledezma MD Primary Care Provider [phone] Encounter Details Date Type Department Care Team (Late st Contact Info) Description 10/16/2024 Lab Requisition [facility] - Main Lab 299 [facility] [place] [address] Cuco Ledezma MD [address] [place] [address] Dr [address] [place], [place] Other care home (current) drug therapy; Encounter for screening for malignant neoplasm of prostate Social History Tobacco Use Types Packs/Day Years Used Date Smoking Tobacco: Never Assessed Sex and Gender Information Value Date Recorded Sex Assigned at Not on file Legal Sex Male 7:19 AM EDT Gender Identity Not on file Sexual Orientation Not on file documented as of this encounter Plan of Treatment Not on file documented as of this encounter Procedures Procedure Name Priority Date/Time Associated Diagnosis Comments VITAMIN B12 AND FOLATE Routine 5:50 AM EDT Other care home (current) drug therapy Encounter for screening for malignant neoplasm of prostate SST - GOLD Routine 10/16/2024 5:50 AM EDT Other care home (current) drug therapy Encounter for screening for malignant neoplasm of prostate LIPID PANEL WITH REFLEX TO DIRECT LDL Routine 10/16/2024 5:50 AM EDT Other roasterman (current) drug therapy Encounter for screening for malignant neoplasm of prostate CBC WITH AUTO DIFFERENTIAL Routine 10/16/2024 5:50 AM EDT Other care home (current) drug therapy Encounter for screening for malignant neoplasm of prostate VITAMIN D 25 HYDROXY Routine 10/16/2024 5:50 AM EDT Other roasterman (current) drug therapy Encounter for screening for malignant neoplasm of prostate CBC AND DIFFERENTIAL Routine 10/16/2024 5:50 AM EDT Other care home (current) drug therapy Encounter for screening for malignant neoplasm of prostate THYROID STIMULATING HORMONE Routine 10/16/2024 5:50 AM EDT Other roasterman (current) drug therapy Encounter for screening for malignant neoplasm of prostate HEMOGLOBIN A1C Routine 10/16/2024 5:50 AM EDT Other roasterman (current) drug therapy Encounter for screening for malignant neoplasm of prostate AMMONIA Routine 10/16/2024 5:50 AM EDT Other care home (current) drug therapy Encounter for screening for malignant neoplasm of prostate VALPROIC ACID LEVEL, TOTAL Routine 10/16/2024 5:50 AM EDT Other care home (current) drug therapy Encounter for screening for malignant neoplasm of prostate COMPREHENSIVE METABOLIC PANEL Routine 10/16/2024 5:50 AM EDT Other care home (current) drug therapy Encounter for screening for malignant neoplasm of prostate documented in this encounter Results * SST tube (10/16/2024 5:50 AM EDT) Extra Tube Hold for add-ons. 10/16/2024 7:01 PM EDT [facility] Comment:Auto resulted. Blood Venous blood specimen / Unknown 10/16/2024 5:50 AM EDT 10/16/2024 6:39 AM EDT us Cuco Ledezma MD LAB BLOOD ORDERABLES Final Resul t [facility] [address] [place] [address], [place] [phone] * (ABNORMAL) CBC auto differential (10/16/2024 5:50 AM EDT) WBC 5.1 4.8 - 10.8 K/mcL LAB HEMETOLOGY METHOD 10/16/2024 6:[address] [facility] RBC 3.70(L) 4.50 - 5.50 M/mcL LAB HEMETOLOGY METHOD 10/16/2024 6:[address] [facility] Hemoglobin 11.3(L) 13.5 - 17.5 g/dL LAB HEMETOLOGY METHOD 10/16/2024 6:[address] [facility] Hematocrit 34.5(L) 42.0 - 54.0 % LAB HEMETOLOGY METHOD 10/16/2024 6:[address] [facility] MCV 93.0 79.0 - 98.0 FL LAB HEMETOLOGY METHOD 10/16/2024 6:[address] [facility] MCH 30.5 27.0 - 32.0 pcg LAB HEMETOLOGY METHOD 10/16/2024 6:[address] [facility] MCHC 32.8 32.0 - 37.0 g/dL LAB HEMETOLOGY METHOD 10/16/2024 6:[address] [facility] RDW 14.1 11.0 - 15.0 % LAB HEMETOLOGY METHOD 10/16/2024 6:[address] [facility] Platelets 124(L) 130 - 400 K/mcL LAB HEMETOLOGY METHOD 10/16/2024 6:[address] [facility] MPV 10.2 7.0 - 11.0 FL LAB HEMETOLOGY METHOD 10/16/2024 6:[address] [facility] NRBC 0.0 <1.0 % LAB HEMETOLOGY METHOD 10/16/2024 6:[address] [facility] NRBC Absolute 0.00 <0.10 K/mcL LAB HEMETOLOGY METHOD 10/16/2024 6:[address] [facility] Neutrophils Relative 45.4 % LAB HEMETOLOGY METHOD 10/16/2024 6:[address] [facility] Lymphocytes Relative 43.4 % LAB HEMETOLOGY METHOD 10/16/2024 6:[address] [facility] Monocytes Relative 8.6 % LAB HEMETOLOGY METHOD 10/16/2024 6:[address] [facility] Eosinophils Relative 1.8 % LAB HEMETOLOGY METHOD 10/16/2024 6:[address] [facility] Basophils Relative 0.4 % LAB HEMETOLOGY METHOD 10/16/2024 6:[address] [facility] Immature Granulocytes Relative 0.4 % LAB HEMETOLOGY METHOD 10/16/2024 6:[address] [facility] Neutrophils Absolute 2.34 1.50 - 7.00 K/mcL LAB HEMETOLOGY METHOD 10/16/2024 6:[address] [facility] Lymphocytes Absolute 2.23 1.00 - 5.00 K/mcL LAB HEMETOLOGY METHOD 10/16/2024 6:[address] [facility] Monocytes Absolute 0.44 0.20 - 1.00 K/mcL LAB HEMETOLOGY METHOD 10/16/2024 6:[address] [facility] Eosinophils Absolute 0.09 0.00 - 0.50 K/mcL LAB HEMETOLOGY METHOD 10/16/2024 6:[address] [facility] Basophils Absolute 0.02 0.00 - 0.20 K/mcL LAB HEMETOLOGY METHOD 10/16/2024 6:[address] [facility] Immature Granulocytes Absolute 0.02 0.00 - 0.03 K/mcL LAB HEMETOLOGY METHOD 10/16/2024 6:[address] [facility] Blood Venous blood specimen / Unknown 10/16/2024 5:50 AM EDT 10/16/2024 6:36 AM EDT us Cuco Ledezma MD LAB BLOOD ORDERABLES Final Resul t Performing Organization Address [facility] [address]/[facility] de Phone Number [facility] [address] [place] [address], [place] [phone] * (ABNORMAL) Ammonia (10/16/2024 5:50 AM EDT) [facility] Ammonia 52(H) 11 - 35 mcmol/L LAB CHEMISTRY METHOD 10/16/2024 7:52 AM EDT [facility] Blood Venous blood specimen / Unknown 10/16/2024 5:50 AM EDT 10/16/2024 6:36 AM EDT us Cuco Ledezma MD LAB BLOOD ORDERABLES Final Resul t Performing Organization Address [facility] de Phone Number [facility] [address] [place] [address], [place] [phone] * (ABNORMAL) Valproic acid level, total (10/16/2024 5:50 AM EDT) [facility] Valproic Acid, Total 47(L) 50 - 100 mcg/mL LAB CHEMISTRY METHOD 10/16/2024 8:04 AM EDT [facility] Blood Venous blood specimen / Unknown 10/16/2024 5:50 AM EDT 10/16/2024 6:36 AM EDT us Cuco Ledezma MD LAB BLOOD ORDERABLES Final Resul t Performing Organization Address [facility] [address]/[facility] de Phone Number [facility] [address] [place] [address], [place] [phone] * (ABNORMAL) Vitamin D 25 hydroxy (10/16/2024 5:50 AM EDT) [facility] Vit D, 25-Hydroxy 17.1(L) 30.0 - 80.0 ng/mL LAB CHEMISTRY METHOD 10/16/2024 12:32 PM EDT [facility] Blood Venous blood specimen / Unknown 10/16/2024 5:50 AM EDT 10/16/2024 6:36 AM EDT us Cuco Ledezma MD LAB BLOOD ORDERABLES Final Resul t Performing Organization Address City/[facility] [address]/ZIP Co de Phone Number [facility] [address] [place] [address], [place] [phone] * Thyroid stimulating hormone (10/16/2024 5:50 AM EDT) Pathologist [facility] TSH 1.52 0.40 - 4.00 mcIU/mL LAB CHEMISTRY METHOD 10/16/2024 1:57 PM EDT [facility] Blood Venous blood specimen / Unknown 10/16/2024 5:50 AM EDT 10/16/2024 6:36 AM EDT us Cuco Ledezma MD LAB BLOOD ORDERABLES Final Resul t Performing Organization Address [facility] [address]/[facility] de Phone Number [facility] [address] [place] [address], [place] [phone] * (ABNORMAL) Hemoglobin A1c (10/16/2024 5:50 AM EDT) Hemoglobin A1C 8.6(H) <6.5 % LAB CHEMISTRY METHOD 10/16/2024 10:17 AM EDT [facility] Mean Bld Glu Estim. 200 mg/dL LAB CHEMISTRY METHOD 10/16/2024 10:17 AM EDT [facility] Blood Venous blood specimen / Unknown 10/16/2024 5:50 AM EDT 10/16/2024 6:36 AM EDT us Cuco Ledezma MD LAB BLOOD ORDERABLES Final Resul t Performing Organization Address [facility] [address]/[facility] Co de Phone Number [facility] [address] [place] [address], [place] [phone] * (ABNORMAL) Vitamin B12 and folate (10/16/2024 5:50 AM EDT) [facility] Vitamin B-12 205(L) 250 - 900 pcg/mL LAB CHEMISTRY METHOD 10/16/2024 8:04 AM EDT [facility] Folate 13.5 2.8 - 17.0 ng/ml LAB CHEMISTRY METHOD 10/16/2024 8:04 AM EDT [facility] Blood Venous blood specimen / Unknown 10/16/2024 5:50 AM EDT 10/16/2024 6:36 AM EDT Cuco Ledezma MD LAB BLOOD ORDERABLES Final Resul t Performing Organization Address [facility] [address]/[facility] Co de Phone Number [facility] [address] [place] [address], [place] [phone] * Lipid panel with reflex to direct LDL (10/16/2024 5:50 AM EDT) [facility] Cholesterol 160 0 - 200 mg/dL LAB CHEMISTRY METHOD 10/16/2024 8:08 AM EDT [facility] Triglycerides 97 0 - 150 mg/dL LAB CHEMISTRY METHOD 10/16/2024 8:08 AM EDT [facility] HDL 43 >=40 mg/dL LAB CHEMISTRY METHOD 10/16/2024 8:08 AM EDT [facility] LDL Calculated 98 0 - 100 mg/dL LAB CHEMISTRY METHOD 10/16/2024 8:08 AM EDT [facility] VLDL Cholesterol Roman 19.4 mg/dL LAB CHEMISTRY METHOD 10/16/2024 8:08 AM EDT [facility] Non HDL Chol. (LDL+VLDL) 117 <145 mg/dL LAB CHEMISTRY METHOD 10/16/2024 8:08 AM EDT [facility] Chol/HDL Ratio 3.7 0.0 - 4.4 LAB CHEMISTRY METHOD 10/16/2024 8:[address] [facility] Blood Venous blood specimen / Unknown 10/16/2024 5:50 AM EDT 10/16/2024 6:36 AM EDT us Cuco Ledezma MD LAB BLOOD ORDERABLES Final Resul t [facility] [address] [place] [address], [place] [phone] * (ABNORMAL) Comprehensive metabolic panel (10/16/2024 5:50 AM EDT) Sodium 143 133 - 145 mmol/L LAB CHEMISTRY METHOD 10/16/2024 8:[address] [facility] Potassium 3.9 3.5 - 5.5 mmol/L LAB CHEMISTRY METHOD 10/16/2024 8:[address] [facility] Chloride 111(H) 96 - 110 mmol/L LAB CHEMISTRY METHOD 10/16/2024 8:[address] [facility] CO2 27 21 - 32 mmol/L LAB CHEMISTRY METHOD 10/16/2024 8:[address] [facility] Anion Gap 5 3 - 11 LAB CHEMISTRY METHOD 10/16/2024 8:[address] [facility] Glucose 233(H) 70 - 100 mg/dL LAB CHEMISTRY METHOD 10/16/2024 8:[address] [facility] BUN 15 5 - 25 mg/dL LAB CHEMISTRY METHOD 10/16/2024 8:[address] [facility] Creatinine 0.76 0.70 - 1.30 mg/dL LAB CHEMISTRY METHOD 10/16/2024 8:[address] [facility] eGFR 99 >=60 mL/min/1. 73m2 LAB CHEMISTRY METHOD 10/16/2024 8:[address] [facility] Comment:Calculation based on the Chronic Kidney Disease Epidemiology Collaboration (CKD-EPI) equation refit without adjustment for race. BUN/Creatinine Ratio 19.7 LAB CHEMISTRY METHOD 10/16/2024 8:[address] [facility] Calcium 8.6 8.5 - 10.5 mg/dL LAB CHEMISTRY METHOD 10/16/2024 8:[address] [facility] AST (SGOT) 12 10 - 42 unit/L LAB CHEMISTRY METHOD 10/16/2024 8:[address] [facility] ALT (SGPT) 19 10 - 60 unit/L LAB CHEMISTRY METHOD 10/16/2024 8:[address] [facility] Alkaline Phosphatase 120 42 - 121 unit/L LAB CHEMISTRY METHOD 10/16/2024 8:[address] [facility] Total Protein 5.4(L) 6.0 - 8.0 g/dL LAB CHEMISTRY METHOD 10/16/2024 8:[address] [facility] Albumin 2.5(L) 3.2 - 5.0 g/dL LAB CHEMISTRY METHOD 10/16/2024 8:[address] [facility] Total Bilirubin 0.3 0.0 - 1.4 mg/dL LAB CHEMISTRY METHOD 10/16/2024 8:[address] [facility] Blood Venous blood specimen / Unknown 10/16/2024 5:50 AM EDT 10/16/2024 6:36 AM EDT us Cuco Ledezma MD LAB BLOOD ORDERABLES Final Resul t [facility] [address] [place] [address], documented in this encounter Visit Diagnoses Diagnosis Other care home (current) drug therapy Encounter for screening for malignant neoplasm of prostate documented in this encounter Care Teams Magazine Hand Relationship Specialty Start Date End Date Cuco Ledezma MD [address] [place] [address] Dr [address] MURALI Hein PCP - General Internal Medicine 08/26/24 documented as of this encounter
--- OUTSIDE RECORDS SUMMARY | 2025-02-14 09:13 | XMS_ITS | Encounter Summary ---
Author Organization [employer] Address [address] [place] [address] Care Team Providers Care [employer] Extension Specialist Name Role Phone Cuco Ledezma MD Primary Care Provider [phone] Encounter Details Date Type Department Care Team (Late st Contact Info) Description 01/05/2025 Lab Requisition [facility] - Main Lab [address] [place] [address] Cuco Ledezma MD [address] [place] [address] Dr [address] [place] Type 2 diabetes mellitus without complications (CMS/HCC V24, CMS/HCC V28) Social History Tobacco Use Types Packs/Day Years [...] Priority Date/Time Associated Diagnosis Comments HEMOGLOBIN A1C Routine 01/05/2025 7:00 AM EDT Type 2 diabetes mellitus without complications (CMS/HCC V24, CMS/[facility] V28) documented in this encounter Results * (ABNORMAL) Hemoglobin A1c (01/05/2025 7:00 AM EDT) Hemoglobin A1C 7.2(H) <6.5 % LAB CHEMISTRY METHOD 01/05/2025 12:23 PM EDT [facility] Mean Bld Glu Estim. 160 mg/dL LAB CHEMISTRY METHOD 01/05/2025 12:23 PM EDT [facility] Blood Venous blood specimen / Unknown 01/05/2025 7:00 AM EDT 01/05/2025 8:21 AM EDT us Cuco Ledezma MD LAB BLOOD ORDERABLES Final Resul t [facility] ([facility] [address] [place] [address], documented in this encounter Visit Diagnoses Diagnosis Type 2 diabetes mellitus without complications (CMS/HCC V24, CMS/HCC V28) documented in this encounter Care Teams [employer] Specialist Relationship Specialty Start Date End Date Cuco Ledezma MD [address] [place] [address] Dr [address] [place], [place] PCP - General Internal Medicine 08/26/24 documented as of this encounter
--- OUTSIDE RECORDS SUMMARY | 2025-02-14 09:13 | XMS_ITS | Encounter Summary ---
Author Organization [employer] Address [address] [place] [address] Care Team Providers Care Farmworker Fur Name Role Phone Cuco Ledezma MD Primary Care Provider Encounter Details Date Type Department Care Team (Late st Contact Info) Description 02/05/2025 Lab Requisition [facility] - Main Lab 299 [facility] [place] [address] Cuco Ledezma MD [address] [place] [address] Dr [address] MURALI Hein Other care home (current) drug therapy; Type 2 diabetes mellitus without complications (CMS/HCC [...] Procedure Name Priority Date/Time Associated Diagnosis Comments CBC WITH AUTO DIFFERENTIAL Routine 02/05/2025 7:00 AM EDT Other care home (current) drug therapy Type 2 diabetes mellitus without complications (CMS/HCC V24, CMS/HCC V28) CBC AND DIFFERENTIAL Routine 02/05/2025 7:00 AM EDT Other lobsterman (current) drug therapy Type 2 diabetes mellitus without complications (CMS/HCC V24, CMS/HCC V28) AMMONIA Routine 02/05/2025 7:00 AM EDT Other lobsterman (current) drug therapy Type 2 diabetes mellitus without complications (CMS/HCC V24, CMS/HCC V28) VALPROIC ACID LEVEL, TOTAL Routine 02/05/2025 7:00 AM EDT Other care home (current) drug therapy Type 2 diabetes mellitus without complications (CMS/HCC V24, CMS/HCC V28) COMPREHENSIVE METABOLIC PANEL Routine 02/05/2025 7:00 AM EDT Other lobsterman (current) drug therapy Type 2 diabetes mellitus without complications (CMS/HCC V24, [facility]/HCC V28) documented in this encounter Results * CBC auto differential (02/05/2025 7:00 AM EDT) [facility] WBC 8.3 4.8 - 10.8 K/mcL LAB HEMETOLOGY METHOD 02/05/2025 7:55 AM [facility] RBC 4.60 4.50 - 5.50 M/mcL LAB HEMETOLOGY METHOD 02/05/2025 7:55 AM [facility] Hemoglobin 13.9 13.5 - 17.5 g/dL LAB HEMETOLOGY METHOD 02/05/2025 7:55 AM [facility] Hematocrit 42.3 42.0 - 54.0 % LAB HEMETOLOGY METHOD 02/05/2025 7:55 AM [facility] MCV 92.0 79.0 - 98.0 FL LAB HEMETOLOGY METHOD 02/05/2025 7:55 AM [facility] MCH 30.2 27.0 - 32.0 pcg LAB HEMETOLOGY METHOD 02/05/2025 7:55 AM [facility] MCHC 32.9 32.0 - 37.0 g/dL LAB HEMETOLOGY METHOD 02/05/2025 7:55 AM [facility] RDW 14.0 11.0 - 15.0 % LAB HEMETOLOGY METHOD 02/05/2025 7:55 AM [facility] Platelets 198 130 - 400 K/mcL LAB HEMETOLOGY METHOD 02/05/2025 7:55 AM [facility] MPV 8.9 7.0 - 11.0 FL LAB HEMETOLOGY METHOD 02/05/2025 7:55 AM [facility] NRBC 0.0 <1.0 % LAB HEMETOLOGY METHOD 02/05/2025 7:55 AM [facility] NRBC Absolute 0.00 <0.10 K/mcL LAB HEMETOLOGY METHOD 02/05/2025 7:55 AM [facility] Neutrophils Relative 67.3 % LAB HEMETOLOGY METHOD 02/05/2025 7:55 AM [facility] Lymphocytes Relative 23.3 % LAB HEMETOLOGY METHOD 02/05/2025 7:55 AM [facility] Monocytes Relative 6.5 % LAB HEMETOLOGY METHOD 02/05/2025 7:55 AM [facility] Eosinophils Relative 2.0 % LAB HEMETOLOGY METHOD 02/05/2025 7:55 AM [facility] Basophils Relative 0.5 % LAB HEMETOLOGY METHOD 02/05/2025 7:55 AM [facility] Immature Granulocytes Relative 0.4 % LAB HEMETOLOGY METHOD 02/05/2025 7:55 AM [facility] Neutrophils Absolute 5.60 1.50 - 7.00 K/mcL LAB HEMETOLOGY METHOD 02/05/2025 7:55 AM [facility] Lymphocytes Absolute 1.94 1.00 - 5.00 K/mcL LAB HEMETOLOGY METHOD 02/05/2025 7:55 AM [facility] Monocytes Absolute 0.54 0.20 - 1.00 K/mcL LAB HEMETOLOGY METHOD 02/05/2025 7:55 AM [facility] Eosinophils Absolute 0.17 0.00 - 0.50 K/mcL LAB HEMETOLOGY METHOD 02/05/2025 7:55 AM [facility] Basophils Absolute 0.04 0.00 - 0.20 K/[facility] LAB HEMETOLOGY METHOD 02/05/2025 7:55 AM EDT [facility] Immature Granulocytes Absolute 0.03 0.00 - 0.03 K/[facility] LAB HEMETOLOGY METHOD 02/05/2025 7:55 AM EDT [facility] Blood Venous blood specimen / Unknown 02/05/2025 7:00 AM EDT 02/05/2025 7:43 AM EDT us Cuco Ledezma MD LAB BLOOD ORDERABLES Final Resul t Performing Organization Address City/[facility]/ZIP Co de Phone Number [facility] [address] [place] [address], [place] [phone] * Valproic acid level, total (02/05/2025 7:00 AM EDT) Valproic Acid, Total 56 50 - 100 mcg/mL LAB CHEMISTRY METHOD 02/05/2025 8:12 AM EDT [facility] Blood Venous blood specimen / Unknown 02/05/2025 7:00 AM EDT 02/05/2025 7:43 AM EDT us Cuco Ledezma MD LAB BLOOD ORDERABLES Final Resul t [facility] [address] [place] [address], [place] [phone] * Ammonia (02/05/2025 7:00 AM EDT) Ammonia 25 11 - 35 mcmol/L LAB CHEMISTRY METHOD 02/05/2025 8:14 AM EDT [facility] Blood Venous blood specimen / Unknown 02/05/2025 7:00 AM EDT 02/05/2025 7:43 AM EDT us Cuco Ledezma MD LAB BLOOD ORDERABLES Final Resul t [facility] [address] [place] [address], * (ABNORMAL) Comprehensive metabolic panel (02/05/2025 7:00 AM EDT) Sodium 143 133 - 145 mmol/L LAB CHEMISTRY METHOD 02/05/2025 8:12 AM [facility] Potassium 4.0 3.5 - 5.5 mmol/L LAB CHEMISTRY METHOD 02/05/2025 8:12 AM [facility] Chloride 108 96 - 110 mmol/L LAB CHEMISTRY METHOD 02/05/2025 8:12 AM [facility] CO2 29 21 - 32 mmol/L LAB CHEMISTRY METHOD 02/05/2025 8:12 AM [facility] Anion Gap 6 3 - 11 LAB CHEMISTRY METHOD 02/05/2025 8:12 AM [facility] Glucose 55(L) 70 - 100 mg/dL LAB CHEMISTRY METHOD 02/05/2025 8:12 AM [facility] BUN 13 5 - 25 mg/dL LAB CHEMISTRY METHOD 02/05/2025 8:12 AM [facility] Creatinine 0.61(L) 0.70 - 1.30 mg/dL LAB CHEMISTRY METHOD 02/05/2025 8:12 AM [facility] eGFR 105 >=60 mL/min/1. 73m2 LAB CHEMISTRY METHOD 02/05/2025 8:12 AM [facility] Comment:Calculation based on the Chronic Kidney Disease Epidemiology Collaboration (CKD-EPI) equation refit without adjustment for race. BUN/Creatinine Ratio 21.3 LAB CHEMISTRY METHOD 02/05/2025 8:12 AM [facility] Calcium 9.4 8.5 - 10.5 mg/dL LAB CHEMISTRY METHOD 02/05/2025 8:12 AM EDT [facility] AST (SGOT) 19 10 - 42 unit/L LAB CHEMISTRY METHOD 02/05/2025 8:12 AM T [facility] ALT (SGPT) 18 10 - 60 unit/L LAB CHEMISTRY METHOD 02/05/2025 8:12 AM [facility] Alkaline Phosphatase 91 42 - 121 unit/L LAB CHEMISTRY METHOD 02/05/2025 8:12 AM EDT [facility] Total Protein 6.5 6.0 - 8.0 g/dL LAB CHEMISTRY METHOD 02/05/2025 8:12 AM T [facility] Albumin 3.1(L) 3.2 - 5.0 g/dL LAB CHEMISTRY METHOD 02/05/2025 8:12 AM [facility] Total Bilirubin 0.2 0.0 - 1.4 mg/dL LAB CHEMISTRY METHOD 02/05/2025 8:12 AM T [facility] Blood Venous blood specimen / Unknown 02/05/2025 7:00 AM EDT 02/05/2025 7:43 AM EDT us Cuco Ledezma MD LAB BLOOD ORDERABLES Final Resul t [facility] [address] [place] [address], documented in this encounter Visit Diagnoses Diagnosis Other care home (current) drug therapy Type 2 diabetes mellitus without complications (CMS/HCC V24, CMS/HCC V28) documented in this encounter Care Teams Farmworker Fur Relationship Specialty Start Date End Date Cuco Ledezma MD [address] [place] [facility] [place] PCP - General Internal Medicine 08/26/24 documented as of this encounter
--- OUTSIDE RECORDS SUMMARY | 2025-02-14 09:13 | XMS_ITS | Encounter Summary ---
Author Organization [facility] Address [address] [place] [address] Care Team Providers Care Roller Helper Name Role Phone Cuco Ledezma MD Primary Care Provider [phone] Encounter Details Date Type Department Care Team (Latest Contact Info) Description 09/17/[address] [facility] Lab [address] [place] [address] Cuco Ledezma MD [address] [place] [address] [address] [place] Schizoaffective disorder, unspecified (CMS/HCC V24, CMS/[facility] V28) Social History Tobacco Use Types Packs/Day [...] Procedure Name Priority Date/Time Associated Diagnosis Comments AMMONIA Routine 09/17/2024 6:45 AM EDT Schizoaffective disorder, unspecified (CMS/HCC V24, CMS/HCC V28) documented in this encounter Results * (ABNORMAL) Ammonia (09/17/2024 6:45 AM EDT) Ammonia 43(H) 11 - 35 mcmol/L LAB CHEMISTRY METHOD 09/17/2024 7:58 AM EDT [facility] ([facility]) [facility] Blood Venous blood specimen / Unknown 09/17/2024 6:45 AM EDT 09/17/2024 7:33 AM EDT us Cuco Ledezma MD LAB BLOOD ORDERABLES Final Resul t [facility] [place] ([facility]) [facility] LAB [address] [place] [address], documented in this encounter Visit Diagnoses Diagnosis Schizoaffective disorder, unspecified (CMS/HCC V24, CMS/HCC V28) documented in this encounter Care Teams Roller Helper Relationship Specialty Start Date End Date Cuco Ledezma MD [address] [place] [address] Dr [address] [place], [place] PCP - General Internal Medicine 08/26/24 documented as of this encounter
--- OUTSIDE RECORDS SUMMARY | 2025-02-14 09:13 | XMS_ITS | Clinical Summary ---
Author Organization [address] [facility] Address [address] [place] [address] Phone Care Team Providers Care Pay Agent Name Role Phone Cuco Ledezma MD Primary Care Provider [phone] Encounters Date Type Department Care Team Description 02/05/2025 Lab Requisition [facility] Lab [address] [place] [phone] Cuco Ledezma MD Other fci (current) drug therapy; Type 2 diabetes mellitus without complications (CMS/HCC V24, CMS/[facility] V28) 01/19/2025 Lab Requisition [facility] Lab [address] [place] [phone] Cuco Ledezma MD 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 therapy 01/05/2025 Lab Requisition [facility] Lab [address] [place] [phone] Cuco Ledezma MD Type 2 diabetes mellitus without complications (CMS/HCC V24, CMS/[facility] V28) 12/19/2024 Lab Requisition [facility] Lab [address] [place] [phone] Cuco Ledezma MD Schizoaffective disorder, unspecified (CMS/HCC V24, CMS/[facility] V28) 11/21/2024 Lab Requisition [facility] Lab [address] [place] [address] Cuco Ledezma MD Encounter for other specified special examinations; Type 2 diabetes mellitus without complications (CMS/HCC V24, CMS/[facility] V28) from Last 3 Months Social History Tobacco Use Types Packs/Day Years Used Date Smoking Tobacco: Never Assessed Sex and Gender Information Value Date Recorded Sex Assigned at Not on file Legal Sex Male 7:19 AM EDT Gender Identity Not on file Sexual Orientation Not on file Plan of Treatment Health Maintenance Due Date Last Done Comments Diabetes: Annual Foot Exam 1967 Diabetes: Annual Retina Eye Exam 1967 DTaP,Tdap,and Td Vaccines (1 - Tdap) 1976 Pneumococcal Vaccine: 50+ Years (1 of 2 - PCV) 1976 Zoster Vaccines (1 of 2) 2007 Depression Screening 06/04/2024 Abdominal Aortic Aneurysm (AAA) Screen 08/26/2024 Colorectal Cancer Screening: Colonoscopy 08/26/2024 Diabetes: Annual Urine Albumin-Creatinine Ratio (uACR) 08/26/2024 Falls Risk Assessment 08/26/2024 Hepatitis C Screening 08/26/2024 Medicare Annual Wellness Visit 08/26/2024 Social Influencers of Health Screening 08/26/2024 COVID-19 Vaccine ( - season) 2025 Influenza Vaccine (#1) 2025 Diabetes: Blood Sugar Control Test (HGBA1C) 07/08/2025 01/05/2025, 11/21/2024, 10/16/2024, Additional history exists Diabetes: Annual GFR (Glomerular Filtration Rate) 02/05/2026 02/05/2025, 11/21/2024, 10/16/2024, Additional history exists Hypertension/CHF/CAD Annual BMP Blood Test 02/05/2026 02/05/2025, 11/21/2024, 10/16/2024, Additional history exists Cholesterol Screening (Lipid Panel) 10/16/2029 10/16/2024, 08/26/2024 RSV Immunization Adult Patients (1 - 1-dose 75+ series) 2032 HIB Vaccines Aged Out No longer eligi ble based on patient's age to complete this topic HPV Vaccines Aged Out No longer eligi ble based on patient's age to complete this topic Hepatitis A Vaccines Aged Out No long er eligible based on patient's age to complete this topic Hepatitis B Vaccines Aged Out No long er eligible based on patient's age to complete this topic IPV Vaccines Aged Out No longer eligi ble based on patient's age to complete this topic MMR Vaccines Aged Out No longer eligi ble based on patient's age to complete this topic Meningococcal ACWY Vaccine Aged Out N o longer eligible based on patient's age to complete this topic Meningococcal B Vaccine Aged Out No l onger eligible based on patient's age to complete this topic RSV Immunization Patients Under 20 months Aged Out No longer eligible based on patient's age to complete this topic Varicella Vaccines Aged Out No longer eligible based on patient's age to complete this topic Procedures Procedure Name Priority Date/Time Associated Diagnosis Comments CBC WITH AUTO DIFFERENTIAL Routine 02/05/2025 7:00 AM EDT 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 therapy Type 2 diabetes mellitus without complications (CMS/HCC V24, CMS/HCC V28) VALPROIC ACID LEVEL, TOTAL Routine 02/05/2025 7:00 AM EDT 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 therapy Type 2 diabetes mellitus without complications (CMS/HCC V24, CMS/HCC V28) AMMONIA Routine 02/05/2025 7:00 AM EDT Other fci (current) drug therapy Type 2 diabetes mellitus without complications (CMS/HCC V24, CMS/HCC V28) CBC AND DIFFERENTIAL Routine 02/05/2025 7:00 AM EDT 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 therapy Type 2 diabetes mellitus without complications (CMS/HCC V24, CMS/HCC V28) COMPREHENSIVE METABOLIC PANEL Routine 02/05/2025 7:00 AM EDT Other fci (current) drug therapy Type 2 diabetes mellitus without complications (CMS/HCC V24, CMS/HCC V28) VITAMIN D 25 HYDROXY Routine 01/19/2025 5:50 AM EDT 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 therapy HEMOGLOBIN A1C Routine 01/05/2025 7:00 AM EDT Type 2 diabetes mellitus without complications (CMS/HCC V24, CMS/HCC V28) CBC WITH AUTO DIFFERENTIAL Routine 12/19/2024 6:37 AM EDT Schizoaffective disorder, unspecified (CMS/HCC V24, CMS/HCC V28) CBC AND DIFFERENTIAL Routine 12/19/2024 6:37 AM EDT Schizoaffective disorder, unspecified (CMS/HCC V24, CMS/HCC V28) CBC WITH AUTO DIFFERENTIAL Routine 11/21/2024 6:55 AM EDT Encounter for other specified special examinations Type 2 diabetes mellitus without complications (CMS/HCC V24, CMS/HCC V28) CBC AND DIFFERENTIAL Routine 11/21/2024 6:55 AM EDT Encounter for other specified special examinations Type 2 diabetes mellitus without complications (CMS/HCC V24, CMS/HCC V28) HEMOGLOBIN A1C Routine 11/21/2024 6:55 AM EDT Encounter for other specified special examinations Type 2 diabetes mellitus without complications (CMS/HCC V24, CMS/HCC V28) VALPROIC ACID LEVEL, TOTAL Routine 11/21/2024 6:55 AM EDT Encounter for other specified special examinations Type 2 diabetes mellitus without complications (CMS/HCC V24, CMS/HCC V28) AMMONIA Routine 11/21/2024 6:55 AM EDT Encounter for other specified special examinations Type 2 diabetes mellitus without complications (CMS/HCC V24, CMS/HCC V28) COMPREHENSIVE METABOLIC PANEL Routine 11/21/2024 6:55 AM EDT Encounter for other specified special examinations Type 2 diabetes mellitus without complications (CMS/HCC V24, CMS/HCC V28) LIPID PANEL WITH REFLEX TO DIRECT LDL Routine 10/16/2024 5:50 AM EDT 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 therapy Encounter for screening for malignant neoplasm of prostate from Last 3 Months or Most Recently Relevant to Health Maintenance Results * CBC auto differential (02/05/2025 7:00 AM EDT) Only the most recent of3 resultswithin the time period is included. WBC 8.3 4.8 - 10.8 K/[facility] LAB HEMETOLOGY METHOD 02/05/2025 7:55 AM [facility] RBC 4.60 4.50 - 5.50 M/mcL LAB HEMETOLOGY METHOD 02/05/2025 7:55 AM [facility] Hemoglobin 13.9 13.5 - 17.5 g/dL LAB HEMETOLOGY METHOD 02/05/2025 7:55 AM [facility] Hematocrit 42.3 42.0 - 54.0 % LAB HEMETOLOGY METHOD 02/05/2025 7:55 AM [facility] MCV 92.0 79.0 - 98.0 FL LAB HEMETOLOGY METHOD 02/05/2025 7:55 AM [facility] MCH 30.2 27.0 - 32.0 pcg LAB HEMETOLOGY METHOD 02/05/2025 7:55 AM [facility] MCHC 32.9 32.0 - 37.0 g/dL LAB HEMETOLOGY METHOD 02/05/2025 7:55 AM [facility] RDW 14.0 11.0 - 15.0 % LAB HEMETOLOGY METHOD 02/05/2025 7:55 AM [facility] Platelets 198 130 - 400 K/mcL LAB HEMETOLOGY METHOD 02/05/2025 7:55 AM [facility] MPV 8.9 7.0 - 11.0 FL LAB HEMETOLOGY METHOD 02/05/2025 7:55 AM [facility] NRBC 0.0 <1.0 % LAB HEMETOLOGY METHOD 02/05/2025 7:55 AM [facility] NRBC Absolute 0.00 <0.10 K/mcL LAB HEMETOLOGY METHOD 02/05/2025 7:55 AM [facility] Neutrophils Relative 67.3 % LAB HEMETOLOGY METHOD 02/05/2025 7:55 AM [facility] Lymphocytes Relative 23.3 % LAB HEMETOLOGY METHOD 02/05/2025 7:55 AM [facility] Monocytes Relative 6.5 % LAB HEMETOLOGY METHOD 02/05/2025 7:55 AM [facility] Eosinophils Relative 2.0 % LAB HEMETOLOGY METHOD 02/05/2025 7:55 AM [facility] Basophils Relative 0.5 % LAB HEMETOLOGY METHOD 02/05/2025 7:55 AM [facility] Immature Granulocytes Relative 0.4 % LAB HEMETOLOGY METHOD 02/05/2025 7:55 AM [facility] Neutrophils Absolute 5.60 1.50 - 7.00 K/mcL LAB HEMETOLOGY METHOD 02/05/2025 7:55 AM [facility] Lymphocytes Absolute 1.94 1.00 - 5.00 K/mcL LAB HEMETOLOGY METHOD 02/05/2025 7:55 AM [facility] Monocytes Absolute 0.54 0.20 - 1.00 K/mcL LAB HEMETOLOGY METHOD 02/05/2025 7:55 AM [facility] Eosinophils Absolute 0.17 0.00 - 0.50 K/mcL LAB HEMETOLOGY METHOD 02/05/2025 7:55 AM [facility] Basophils Absolute 0.04 0.00 - 0.20 K/mcL LAB HEMETOLOGY METHOD 02/05/2025 7:55 AM [facility] Immature Granulocytes Absolute 0.03 0.00 - 0.03 K/mcL LAB HEMETOLOGY METHOD 02/05/2025 7:55 AM [facility] Blood Venous blood specimen / Unknown 02/05/2025 7:00 AM EDT 02/05/2025 7:43 AM EDT us Cuco Ledezma MD LAB BLOOD ORDERABLES Final Resul t Performing Organization Address [facility]/ZIP Co de Phone Number [facility] [address] [place] [address], [place] [phone] * Ammonia (02/05/2025 7:00 AM EDT) Only the most recent of2 resultswithin the time period is included. Ammonia 25 11 - 35 mcmol/L LAB CHEMISTRY METHOD 02/05/2025 8:14 AM EDT [facility] Blood Venous blood specimen / Unknown 02/05/2025 7:00 AM EDT 02/05/2025 7:43 AM EDT us Cuco Ledezma MD LAB BLOOD ORDERABLES Final Resul t Performing Organization Address [facility] Co de Phone Number [facility] [address] [place] [address], [place] [phone] * Valproic acid level, total (02/05/2025 7:00 AM EDT) Only the most recent of2 resultswithin the time period is included. Pathologist [facility] Valproic Acid, Total 56 50 - 100 mcg/mL LAB CHEMISTRY METHOD 02/05/2025 8:12 AM EDT [facility] Blood Venous blood specimen / Unknown 02/05/2025 7:00 AM EDT 02/05/2025 7:43 AM EDT us Cuco Ledezma MD LAB BLOOD ORDERABLES Final Resul t Performing Organization Address [facility]/ZIP Co de Phone Number [facility] [address] [place] [address], [place] [phone] * (ABNORMAL) Comprehensive metabolic panel (02/05/2025 7:00 AM EDT) Only the most recent of2 resultswithin the time period is included. Pathologist [facility] Sodium 143 133 - 145 mmol/L LAB CHEMISTRY METHOD 02/05/2025 8:12 AM [facility] Potassium 4.0 3.5 - 5.5 mmol/L LAB CHEMISTRY METHOD 02/05/2025 8:12 AM [facility] Chloride 108 96 - 110 mmol/L LAB CHEMISTRY METHOD 02/05/2025 8:12 AM [facility] CO2 29 21 - 32 mmol/L LAB CHEMISTRY METHOD 02/05/2025 8:12 AM [facility] Anion Gap 6 3 - 11 LAB CHEMISTRY METHOD 02/05/2025 8:12 AM [facility] Glucose 55(L) 70 - 100 mg/dL LAB CHEMISTRY METHOD 02/05/2025 8:12 AM [facility] BUN 13 5 - 25 mg/dL LAB CHEMISTRY METHOD 02/05/2025 8:12 AM [facility] Creatinine 0.61(L) 0.70 - 1.30 mg/dL LAB CHEMISTRY METHOD 02/05/2025 8:12 AM [facility] eGFR 105 >=60 mL/min/1. 73m2 LAB CHEMISTRY METHOD 02/05/2025 8:12 AM [facility] Comment:Calculation based on the Chronic Kidney Disease Epidemiology Collaboration (CKD-EPI) equation refit without adjustment for race. BUN/Creatinine Ratio 21.3 LAB CHEMISTRY METHOD 02/05/2025 8:12 AM [facility] Calcium 9.4 8.5 - 10.5 mg/dL LAB CHEMISTRY METHOD 02/05/2025 8:12 AM [facility] AST (SGOT) 19 10 - 42 unit/L LAB CHEMISTRY METHOD 02/05/2025 8:12 AM [facility] ALT (SGPT) 18 10 - 60 unit/L LAB CHEMISTRY METHOD 02/05/2025 8:12 AM [facility] Alkaline Phosphatase 91 42 - 121 unit/L LAB CHEMISTRY METHOD 02/05/2025 8:12 AM EDT [facility] Total Protein 6.5 6.0 - 8.0 g/dL LAB CHEMISTRY METHOD 02/05/2025 8:12 AM EDT [facility] Albumin 3.1(L) 3.2 - 5.0 g/dL LAB CHEMISTRY METHOD 02/05/2025 8:12 AM EDT [facility] Total Bilirubin 0.2 0.0 - 1.4 mg/dL LAB CHEMISTRY METHOD 02/05/2025 8:12 AM EDT [facility] Blood Venous blood specimen / Unknown 02/05/2025 7:00 AM EDT 02/05/2025 7:43 AM EDT us Cuco Ledezma MD LAB BLOOD ORDERABLES Final Resul t Performing Organization Address City/[facility]/ZIP Co de Phone Number [facility] [address] [place] [address], [place] [phone] * Vitamin D 25 hydroxy (01/19/2025 5:50 AM EDT) Pathologist [facility] Vit D, 25-Hydroxy 53.3 30.0 - 80.0 ng/mL LAB CHEMISTRY METHOD 01/19/2025 8:04 AM EDT [facility] Blood Venous blood specimen / Unknown 01/19/2025 5:50 AM EDT 01/19/2025 6:45 AM EDT us Cuco Ledezma MD LAB BLOOD ORDERABLES Final Resul t Performing Organization Address City/[facility]/ZIP Co de Phone Number [facility] [address] [place] [address], [place] [phone] * (ABNORMAL) Hemoglobin A1c (01/05/2025 7:00 AM EDT) Only the most recent of2 resultswithin the time period is included. Hemoglobin A1C 7.2(H) <6.5 % LAB CHEMISTRY METHOD 01/05/2025 12:23 PM EDT [facility] Mean Bld Glu Estim. 160 mg/dL LAB CHEMISTRY METHOD 01/05/2025 12:23 PM EDT [facility] Blood Venous blood specimen / Unknown 01/05/2025 7:00 AM EDT 01/05/2025 8:21 AM EDT us Cuco Ledezma MD LAB BLOOD ORDERABLES Final Resul t [facility] [address] [place] [address], [place] [phone] * Lipid panel with reflex to direct LDL (10/16/2024 5:50 AM EDT) Cholesterol 160 0 - 200 mg/dL LAB CHEMISTRY METHOD 10/16/2024 8:08 AM [facility] Triglycerides 97 0 - 150 mg/dL LAB CHEMISTRY METHOD 10/16/2024 8:08 AM [facility] HDL 43 >=40 mg/dL LAB CHEMISTRY METHOD 10/16/2024 8:08 AM [facility] LDL Calculated 98 0 - 100 mg/dL LAB CHEMISTRY METHOD 10/16/2024 8:08 AM [facility] VLDL Cholesterol Roman 19.4 mg/dL LAB CHEMISTRY METHOD 10/16/2024 8:08 AM [facility] Non HDL Chol. (LDL+VLDL) 117 <145 mg/dL LAB CHEMISTRY METHOD 10/16/2024 8:08 AM [facility] Chol/HDL Ratio 3.7 0.0 - 4.4 LAB CHEMISTRY METHOD 10/16/2024 8:08 AM [facility] Blood Venous blood specimen / Unknown 10/16/2024 5:50 AM EDT 10/16/2024 6:36 AM EDT us Cuco Ledezma MD LAB BLOOD ORDERABLES Final Resul t [facility] LAB [address] [place] [address], [place] [phone] from Last 3 Months or Most Recently Relevant to Health Maintenance Insurance MEDICAID - [place] MEDICARE Care Teams Pay Agent Relationship Specialty Start Date End Date Cuco Ledezma MD [address] [place] [address] Dr [address] [place], [place] PCP - General Internal Medicine 08/26/24
--- OUTSIDE RECORDS SUMMARY | 2025-02-14 09:13 | XMS_ITS | Encounter Summary ---
Author Organization [facility] Address [address] [place] [address] Care Team Providers Care Bottling Attendant Name Role Phone Cuco Ledezma MD Primary Care Provider [phone] Encounter Details Date Type Department Care Team (Late st Contact Info) Description 08/26/2024 Lab Requisition [facility] - Main Lab [address] [facility] [place] [address] Cuco Ledezma MD [address] [place] [address] Dr [address] [place], [place] Type 2 diabetes mellitus without complications (CMS/HCC V24, CMS/HCC V28); Essential (primary) hypertension; Hyperlipidemia, unspecified; Encounter for screening for malignant neoplasm of [...] Procedure Name Priority Date/Time Associated Diagnosis Comments PROSTATE SPECIFIC ANTIGEN SCREEN Routine 08/26/2024 6:38 AM EDT Type 2 diabetes mellitus without complications Essential (primary) hypertension Hyperlipidemia, unspecified Encounter for screening for malignant neoplasm of prostate LIPID PANEL WITH REFLEX TO DIRECT LDL Routine 08/26/2024 6:38 AM EDT Type 2 diabetes mellitus without complications Essential (primary) hypertension Hyperlipidemia, unspecified Encounter for screening for malignant neoplasm of prostate CBC WITH AUTO DIFFERENTIAL Routine 08/26/2024 6:38 AM EDT Type 2 diabetes mellitus without complications Essential (primary) hypertension Hyperlipidemia, unspecified Encounter for screening for malignant neoplasm of prostate RED - PLAIN Routine 08/26/2024 6:38 AM EDT Type 2 diabetes mellitus without complications Essential (primary) hypertension Hyperlipidemia, unspecified Encounter for screening for malignant neoplasm of prostate CBC AND DIFFERENTIAL Routine 08/26/2024 6:38 AM EDT Type 2 diabetes mellitus without complications Essential (primary) hypertension Hyperlipidemia, unspecified Encounter for screening for malignant neoplasm of prostate THYROID STIMULATING HORMONE Routine 08/26/2024 6:38 AM EDT Type 2 diabetes mellitus without complications Essential (primary) hypertension Hyperlipidemia, unspecified Encounter for screening for malignant neoplasm of prostate HEMOGLOBIN A1C Routine 08/26/2024 6:38 AM EDT Type 2 diabetes mellitus without complications Essential (primary) hypertension Hyperlipidemia, unspecified Encounter for screening for malignant neoplasm of prostate VALPROIC ACID LEVEL, TOTAL Routine 08/26/2024 6:38 AM EDT Type 2 diabetes mellitus without complications Essential (primary) hypertension Hyperlipidemia, unspecified Encounter for screening for malignant neoplasm of prostate COMPREHENSIVE METABOLIC PANEL Routine 08/26/2024 6:38 AM EDT Type 2 diabetes mellitus without complications Essential (primary) hypertension Hyperlipidemia, unspecified Encounter for screening for malignant neoplasm of prostate documented in this encounter Results * Red tube (08/26/2024 6:38 AM EDT) Extra Tube Hold for add-ons. 08/26/2024 9:01 AM EDT [facility] Comment:Auto resulted. Blood Venous blood specimen / Unknown 08/26/2024 6:38 AM EDT 08/26/2024 7:27 AM EDT us Cuco Ledezma MD LAB BLOOD ORDERABLES Final Resul t [facility] [address] [place] [address], [place] [phone] * (ABNORMAL) CBC auto differential (08/26/2024 6:38 AM EDT) WBC 6.3 4.8 - 10.8 K/mcL LAB HEMETOLOGY METHOD 08/26/2024 7:36 AM [facility] RBC 4.20(L) 4.50 - 5.50 M/mcL LAB HEMETOLOGY METHOD 08/26/2024 7:36 AM [facility] Hemoglobin 13.2(L) 13.5 - 17.5 g/dL LAB HEMETOLOGY METHOD 08/26/2024 7:36 AM [facility] Hematocrit 39.6(L) 42.0 - 54.0 % LAB HEMETOLOGY METHOD 08/26/2024 7:36 AM [facility] MCV 93.4 79.0 - 98.0 FL LAB HEMETOLOGY METHOD 08/26/2024 7:36 AM [facility] MCH 31.1 27.0 - 32.0 pcg LAB HEMETOLOGY METHOD 08/26/2024 7:36 AM [facility] MCHC 33.3 32.0 - 37.0 g/dL LAB HEMETOLOGY METHOD 08/26/2024 7:36 AM [facility] RDW 14.1 11.0 - 15.0 % LAB HEMETOLOGY METHOD 08/26/2024 7:36 AM [facility] Platelets 166 130 - 400 K/mcL LAB HEMETOLOGY METHOD 08/26/2024 7:36 AM [facility] MPV 9.6 7.0 - 11.0 FL LAB HEMETOLOGY METHOD 08/26/2024 7:36 AM [facility] NRBC 0.0 <1.0 % LAB HEMETOLOGY METHOD 08/26/2024 7:36 AM [facility] NRBC Absolute 0.00 <0.10 K/mcL LAB HEMETOLOGY METHOD 08/26/2024 7:36 AM [facility] Neutrophils Relative 48.3 % LAB HEMETOLOGY METHOD 08/26/2024 7:36 AM [facility] Lymphocytes Relative 37.1 % LAB HEMETOLOGY METHOD 08/26/2024 7:36 AM [facility] Monocytes Relative 10.0 % LAB HEMETOLOGY METHOD 08/26/2024 7:36 AM [facility] Eosinophils Relative 3.2 % LAB HEMETOLOGY METHOD 08/26/2024 7:36 AM [facility] Basophils Relative 0.6 % LAB HEMETOLOGY METHOD 08/26/2024 7:36 AM [facility] Immature Granulocytes Relative 0.8 % LAB HEMETOLOGY METHOD 08/26/2024 7:36 AM [facility] Neutrophils Absolute 3.05 1.50 - 7.00 K/mcL LAB HEMETOLOGY METHOD 08/26/2024 7:36 AM [facility] Lymphocytes Absolute 2.34 1.00 - 5.00 K/mcL LAB HEMETOLOGY METHOD 08/26/2024 7:36 AM [facility] Monocytes Absolute 0.63 0.20 - 1.00 K/mcL LAB HEMETOLOGY METHOD 08/26/2024 7:36 AM [facility] Eosinophils Absolute 0.20 0.00 - 0.50 K/mcL LAB HEMETOLOGY METHOD 08/26/2024 7:36 AM [facility] Basophils Absolute 0.04 0.00 - 0.20 K/mcL LAB HEMETOLOGY METHOD 08/26/2024 7:36 AM [facility] Immature Granulocytes Absolute 0.05(H) 0.00 - 0.03 K/mcL LAB HEMETOLOGY METHOD 08/26/2024 7:36 AM [facility] Blood Venous blood specimen / Unknown 08/26/2024 6:38 AM EDT 08/26/2024 7:27 AM EDT us Cuco Ledezma MD LAB BLOOD ORDERABLES Final Resul t Performing Organization Address City/[facility]/ZIP Co de Phone Number [facility] [address] [place] [address], [place] [phone] * Thyroid stimulating hormone (08/26/2024 6:38 AM EDT) TSH 1.23 0.40 - 4.00 mcIU/mL LAB CHEMISTRY METHOD 08/26/2024 8:49 AM EDT [facility] Blood Venous blood specimen / Unknown 08/26/2024 6:38 AM EDT 08/26/2024 7:27 AM EDT us Cuco Ledezma MD LAB BLOOD ORDERABLES Final Resul t Performing Organization Address [facility] de Phone Number [facility] [address] [place] [address], [place] [phone] * Prostate specific antigen screen (08/26/2024 6:38 AM EDT) PSA 0.25 0.00 - 4.00 ng/mL LAB CHEMISTRY METHOD 08/26/2024 8:48 AM EDT [facility] Blood Venous blood specimen / Unknown 08/26/2024 6:38 AM EDT 08/26/2024 7:27 AM EDT Narrative [facility] - 08/26/2024 8:48 AM EDT The Siemens Advia Centaur Chemiluminescent Immunoassay is used. Results obtained with different assay methods or kits cannot be used interchangeably. Results cannot be interpreted as absolute evidence of the presence or absence of malignant disease. us Cuco Ledezma MD LAB BLOOD ORDERABLES Final Resul t Performing Organization Address City/[facility]/ZIP Co de Phone Number [facility] [address] [place] [address], [place] [phone] * (ABNORMAL) Hemoglobin A1c (08/26/2024 6:38 AM EDT) [facility] Hemoglobin A1C 7.7(H) <6.5 % LAB CHEMISTRY METHOD 08/26/2024 11:35 AM EDT [facility] Mean Bld Glu Estim. 174 mg/dL LAB CHEMISTRY METHOD 08/26/2024 11:35 AM EDT [facility] Blood Venous blood specimen / Unknown 08/26/2024 6:38 AM EDT 08/26/2024 7:27 AM EDT us Cuco Ledezma MD LAB BLOOD ORDERABLES Final Resul t Performing Organization Address [facility]/ZIP Co de Phone Number [facility] [address] [place] [address], [place] [phone] * (ABNORMAL) Valproic acid level, total (08/26/2024 6:38 AM EDT) [facility] Valproic Acid, Total 34(L) 50 - 100 mcg/mL LAB CHEMISTRY METHOD 08/26/2024 7:59 AM EDT [facility] Blood Venous blood specimen / Unknown 08/26/2024 6:38 AM EDT 08/26/2024 7:27 AM EDT us Cuco Ledezma MD LAB BLOOD ORDERABLES Final Resul t [facility] [address] [place] [address], [place] [phone] * Lipid panel with reflex to direct LDL (08/26/2024 6:38 AM EDT) [facility] Cholesterol 165 0 - 200 mg/dL LAB CHEMISTRY METHOD 08/26/2024 7:59 AM EDT [facility] Triglycerides 118 0 - 150 mg/dL LAB CHEMISTRY METHOD 08/26/2024 7:59 AM EDT [facility] HDL 49 >=40 mg/dL LAB CHEMISTRY METHOD 08/26/2024 7:59 AM EDT [facility] LDL Calculated 92 0 - 100 mg/dL LAB CHEMISTRY METHOD 08/26/2024 7:59 AM EDT [facility] VLDL Cholesterol Roman 23.6 mg/dL LAB CHEMISTRY METHOD 08/26/2024 7:59 AM EDT [facility] Non HDL Chol. (LDL+VLDL) 116 <145 mg/dL LAB CHEMISTRY METHOD 08/26/2024 7:59 AM T [facility] Chol/HDL Ratio 3.4 0.0 - 4.4 LAB CHEMISTRY METHOD 08/26/2024 7:59 [facility] Venous blood specimen / Unknown 08/26/2024 6:38 AM EDT 08/26/2024 7:27 AM EDT us Cuco Ledezma MD LAB BLOOD ORDERABLES Final Resul t [facility] [address] [place] [address], * (ABNORMAL) Comprehensive metabolic panel (08/26/2024 6:38 AM EDT) Sodium 144 133 - 145 mmol/L LAB CHEMISTRY METHOD 08/26/2024 7:59 AM T [facility] Potassium 4.2 3.5 - 5.5 mmol/L LAB CHEMISTRY METHOD 08/26/2024 7:59 AM T [facility] Chloride 108 96 - 110 mmol/L LAB CHEMISTRY METHOD 08/26/2024 7:59 AM EDT [facility] CO2 30 21 - 32 mmol/L LAB CHEMISTRY METHOD 08/26/2024 7:59 AM T [facility] Anion Gap 6 3 - 11 LAB CHEMISTRY METHOD 08/26/2024 7:59 AM [facility] Glucose 195(H) 70 - 100 mg/dL LAB CHEMISTRY METHOD 08/26/2024 7:59 AM [facility] BUN 18 5 - 25 mg/dL LAB CHEMISTRY METHOD 08/26/2024 7:59 AM [facility] Creatinine 0.64(L) 0.70 - 1.30 mg/dL LAB CHEMISTRY METHOD 08/26/2024 7:59 AM [facility] eGFR 104 >=60 mL/min/1. 73m2 LAB CHEMISTRY METHOD 08/26/2024 7:59 AM [facility] Comment:Calculation based on the Chronic Kidney Disease Epidemiology Collaboration (CKD-EPI) equation refit without adjustment for race. BUN/Creatinine Ratio 28.1 LAB CHEMISTRY METHOD 08/26/2024 7:59 AM [facility] Calcium 8.9 8.5 - 10.5 mg/dL LAB CHEMISTRY METHOD 08/26/2024 7:59 AM [facility] AST (SGOT) 9(L) 10 - 42 unit/L LAB CHEMISTRY METHOD 08/26/2024 7:59 AM [facility] ALT (SGPT) 16 10 - 60 unit/L LAB CHEMISTRY METHOD 08/26/2024 7:59 AM [facility] Alkaline Phosphatase 143(H) 42 - 121 unit/L LAB CHEMISTRY METHOD 08/26/2024 7:59 AM [facility] Total Protein 6.0 6.0 - 8.0 g/dL LAB CHEMISTRY METHOD 08/26/2024 7:59 AM [facility] Albumin 2.8(L) 3.2 - 5.0 g/dL LAB CHEMISTRY METHOD 08/26/2024 7:59 AM [facility] Total Bilirubin 0.3 0.0 - 1.4 mg/dL LAB CHEMISTRY METHOD 08/26/2024 7:59 AM EDT [facility] Blood Venous blood specimen / Unknown 08/26/2024 6:38 AM EDT 08/26/2024 7:27 AM EDT us Cuco Ledezma MD LAB BLOOD ORDERABLES Final Resul t [facility] [address] [place] [address], documented in this encounter Visit Diagnoses Diagnosis Type 2 diabetes mellitus without complications (CMS/HCC V24, CMS/HCC V28) Essential (primary) hypertension Unspecified essential hypertension Hyperlipidemia, unspecified Encounter for screening for malignant neoplasm of prostate documented in this encounter Care Teams Bottling Attendant Relationship Specialty Start Date End Date Cuco Ledezma MD [address] [place] [address] Dr [address] [place], [place] PCP - General Internal Medicine 08/26/24 documented as of this encounter
--- OUTSIDE RECORDS SUMMARY | 2025-02-14 09:13 | XMS_ITS | Encounter Summary ---
Author Organization [facility] Address [address] [place] [address] Care Team Providers Care Forensic Computer Examiner Name Role Phone Cuco Ledezma MD Primary Care Provider Encounter Details Date Type Department Care Team (Late st Contact Info) Description 01/19/2025 Lab Requisition [facility] [address] [place] [address] Cuco Ledezma MD [address] [place] [address] [address] [place], [place] Other shelter (current) drug therapy Social History Tobacco Use Types Packs/Day Years [...] Name Priority Date/Time Associated Diagnosis Comments VITAMIN D 25 HYDROXY Routine 01/19/2025 5:50 AM EDT Other intermission coordinator (current) drug therapy documented in this encounter Results * Vitamin D 25 hydroxy (01/19/2025 5:50 AM EDT) Vit D, 25-Hydroxy 53.3 30.0 - 80.0 ng/mL LAB CHEMISTRY METHOD 01/19/2025 8:04 AM EDT [facility] Blood Venous blood specimen / Unknown 01/19/2025 5:50 AM EDT 01/19/2025 6:45 AM EDT us Cuco Ledezma MD LAB BLOOD ORDERABLES Final Resul t [facility] [address] [place], [place] [address] [phone] documented in this encounter Visit Diagnoses Diagnosis Other shelter (current) drug therapy documented in this encounter Care Teams Forensic Computer Examiner Relationship Specialty Start Date End Date Cuco Ledezma MD [address] [place] [address] [place] [address] PCP - General Internal Medicine 08/26/24 documented as of this encounter
--- OUTSIDE RECORDS SUMMARY | 2025-02-14 09:14 | XMS_ITS | Encounter Summary ---
Author Organization [employer] Address [address] [place] [address] Care Team Providers Care Breakfast Server Name Role Phone Cuco Ledezma MD Primary Care Provider [phone] Encounter Details Date Type Department Care Team (Late st Contact Info) Description 11/21/[address] [facility] - Main Lab [address] [facility] [place] [address] Cuco Ledezma MD [address] [place] [address] Dr [address] [place], [place] Encounter for other specified special examinations; Type [...] Diagnosis Comments CBC WITH AUTO DIFFERENTIAL Routine 11/21/2024 6:55 [...] examinations Type 2 diabetes mellitus without complications ([facility] V24, [facility] V28) COMPREHENSIVE METABOLIC PANEL Routine 11/21/2024 6:55 AM EDT Encounter for other specified special examinations Type 2 diabetes mellitus without complications ([facility] V24, [facility] V28) documented in this encounter Results * (ABNORMAL) CBC auto differential (11/21/2024 6:55 AM EDT) [facility] WBC 7.6 4.8 - 10.8 K/mcL LAB HEMETOLOGY METHOD 11/21/2024 9:09 AM [facility] RBC 4.30(L) 4.50 - 5.50 M/mcL LAB HEMETOLOGY METHOD 11/21/2024 9:09 AM [facility] Hemoglobin 12.8(L) 13.5 - 17.5 g/dL LAB HEMETOLOGY METHOD 11/21/2024 9:09 AM [facility] Hematocrit 39.5(L) 42.0 - 54.0 % LAB HEMETOLOGY METHOD 11/21/2024 9:09 AM [facility] MCV 91.9 79.0 - 98.0 FL LAB HEMETOLOGY METHOD 11/21/2024 9:09 AM [facility] MCH 29.8 27.0 - 32.0 pcg LAB HEMETOLOGY METHOD 11/21/2024 9:09 AM [facility] MCHC 32.4 32.0 - 37.0 g/dL LAB HEMETOLOGY METHOD 11/21/2024 9:09 AM [facility] RDW 15.1(H) 11.0 - 15.0 % LAB HEMETOLOGY METHOD 11/21/2024 9:09 AM [facility] Platelets 156 130 - 400 K/mcL LAB HEMETOLOGY METHOD 11/21/2024 9:09 AM [facility] MPV 9.9 7.0 - 11.0 FL LAB HEMETOLOGY METHOD 11/21/2024 9:09 AM [facility] NRBC 0.0 <1.0 % LAB HEMETOLOGY METHOD 11/21/2024 9:09 AM [facility] NRBC Absolute 0.00 <0.10 K/mcL LAB HEMETOLOGY METHOD 11/21/2024 9:09 AM [facility] Neutrophils Relative 59.7 % LAB HEMETOLOGY METHOD 11/21/2024 9:09 AM [facility] Lymphocytes Relative 23.7 % LAB HEMETOLOGY METHOD 11/21/2024 9:09 AM [facility] Monocytes Relative 11.6 % LAB HEMETOLOGY METHOD 11/21/2024 9:09 AM [facility] Eosinophils Relative 3.6 % LAB HEMETOLOGY METHOD 11/21/2024 9:09 AM [facility] Basophils Relative 0.7 % LAB HEMETOLOGY METHOD 11/21/2024 9:09 AM [facility] Immature Granulocytes Relative 0.7 % LAB HEMETOLOGY METHOD 11/21/2024 9:09 AM [facility] Neutrophils Absolute 4.52 1.50 - 7.00 K/mcL LAB HEMETOLOGY METHOD 11/21/2024 9:09 AM [facility] Lymphocytes Absolute 1.79 1.00 - 5.00 K/mcL LAB HEMETOLOGY METHOD 11/21/2024 9:09 AM [facility] Monocytes Absolute 0.88 0.20 - 1.00 K/mcL LAB HEMETOLOGY METHOD 11/21/2024 9:[address] [facility] Eosinophils Absolute 0.27 0.00 - 0.50 K/[facility] LAB HEMETOLOGY METHOD 11/21/2024 9:[address] [facility] Basophils Absolute 0.05 0.00 - 0.20 K/[facility] LAB HEMETOLOGY METHOD 11/21/2024 9:[address] [facility] Immature Granulocytes Absolute 0.05(H) 0.00 - 0.03 K/[facility] LAB HEMETOLOGY METHOD 11/21/2024 9:[address] [facility] Blood Venous blood specimen / Unknown 11/21/2024 6:55 AM EDT 11/21/2024 8:27 AM EDT us Cuco Ledezma MD LAB BLOOD ORDERABLES Final Resul t Performing Organization Address City/[facility]/ZIP Co de Phone Number [facility] [address] [place] [address], [place] [phone] * (ABNORMAL) Hemoglobin A1c (11/21/2024 6:55 AM EDT) Hemoglobin A1C 8.3(H) <6.5 % LAB CHEMISTRY METHOD 11/21/2024 12:[address] [facility] Mean Bld Glu Estim. 192 mg/dL LAB CHEMISTRY METHOD 11/21/2024 12:[address] [facility] Blood Venous blood specimen / Unknown 11/21/2024 6:55 AM EDT 11/21/2024 8:27 AM EDT us Cuco Ledezma MD LAB BLOOD ORDERABLES Final Resul t Performing Organization Address [facility]/ZIP Co de Phone Number [facility] [address] [place] [address], [place] [phone] * (ABNORMAL) Valproic acid level, total (11/21/2024 6:55 AM EDT) Pathologist [facility] Valproic Acid, Total 42(L) 50 - 100 mcg/mL LAB CHEMISTRY METHOD 11/21/2024 9:[address] [facility] Blood Venous blood specimen / Unknown 11/21/2024 6:55 AM EDT 11/21/2024 8:27 AM EDT us Cuco Ledezma MD LAB BLOOD ORDERABLES Final Resul t Performing Organization Address [facility]/ZIP Co de Phone Number [facility] [address] [place] [address], [place] [phone] * (ABNORMAL) Ammonia (11/21/2024 6:55 AM EDT) [facility] Ammonia 49(H) 11 - 35 mcmol/L LAB CHEMISTRY METHOD 11/21/2024 8:[address] [facility] Blood Venous blood specimen / Unknown 11/21/2024 6:55 AM EDT 11/21/2024 8:27 AM EDT us Cuco Ledezma MD LAB BLOOD ORDERABLES Final Resul t Performing Organization Address [facility] Co de Phone Number [facility] [address] [place] [address], [place] [phone] * (ABNORMAL) Comprehensive metabolic panel (11/21/2024 6:55 AM EDT) [facility] Sodium 145 133 - 145 mmol/L LAB CHEMISTRY METHOD 11/21/2024 9:[address] [facility] Potassium 3.9 3.5 - 5.5 mmol/L LAB CHEMISTRY METHOD 11/21/2024 9:[address] [facility] Chloride 109 96 - 110 mmol/L LAB CHEMISTRY METHOD 11/21/2024 9:[address] [facility] CO2 28 21 - 32 mmol/L LAB CHEMISTRY METHOD 11/21/2024 9:23 AM [facility] Anion Gap 8 3 - 11 LAB CHEMISTRY METHOD 11/21/2024 9:23 AM [facility] Glucose 205(H) 70 - 100 mg/dL LAB CHEMISTRY METHOD 11/21/2024 9:23 AM [facility] BUN 15 5 - 25 mg/dL LAB CHEMISTRY METHOD 11/21/2024 9:23 AM [facility] Creatinine 0.70 0.70 - 1.30 mg/dL LAB CHEMISTRY METHOD 11/21/2024 9:23 AM [facility] eGFR 101 >=60 mL/min/1. 73m2 LAB CHEMISTRY METHOD 11/21/2024 9:23 AM [facility] Comment:Calculation based on the Chronic Kidney Disease Epidemiology Collaboration (CKD-EPI) equation refit without adjustment for race. BUN/Creatinine Ratio 21.4 LAB CHEMISTRY METHOD 11/21/2024 9:23 AM [facility] Calcium 8.6 8.5 - 10.5 mg/dL LAB CHEMISTRY METHOD 11/21/2024 9:23 AM [facility] AST (SGOT) 16 10 - 42 unit/L LAB CHEMISTRY METHOD 11/21/2024 9:23 AM [facility] ALT (SGPT) 33 10 - 60 unit/L LAB CHEMISTRY METHOD 11/21/2024 9:23 AM [facility] Alkaline Phosphatase 121 42 - 121 unit/L LAB CHEMISTRY METHOD 11/21/2024 9:23 AM [facility] Total Protein 5.9(L) 6.0 - 8.0 g/dL LAB CHEMISTRY METHOD 11/21/2024 9:23 AM [facility] Albumin 2.9(L) 3.2 - 5.0 g/dL LAB CHEMISTRY METHOD 11/21/2024 9:23 AM [facility] Total Bilirubin 0.3 0.0 - 1.4 mg/dL LAB CHEMISTRY METHOD 11/21/2024 9:[address] [facility] Blood Venous blood specimen / Unknown 11/21/2024 6:55 AM EDT 11/21/2024 8:27 AM EDT us Cuco Ledezma MD LAB BLOOD ORDERABLES Final Resul t [facility] [address] [place] [address], [place] [phone] documented in this encounter Visit Diagnoses Diagnosis Encounter for other specified special examinations Type 2 diabetes mellitus without complications (CMS/HCC V24, CMS/HCC V28) documented in this encounter Care Teams Breakfast Server Relationship Specialty Start Date End Date Cuco Ledezma MD [address] [place] [address] Dr [address] [place], [place] PCP - General Internal Medicine 08/26/24 documented as of this encounter
--- OUTSIDE RECORDS SUMMARY | 2025-02-14 09:14 | XMS_ITS | Encounter Summary ---
Author Organization [employer] [place] Address [address] [place] [address] Care Team Providers Care Human Resources Department Supervisor Name Role Phone Cuco Ledezma MD Primary Care Provider [phone] Encounter Details Date Type Department Care Team (Latest Contact Info) Description 10/24/2024 Lab Requisition [facility] - Main Lab [address] [facility] [place] [address] Cuco Ledezma MD [address] [place] [address] [address] MURALI Hein Schizoaffective disorder, unspecified (CMS/HCC V24, CMS/HCC V28) Social History Tobacco [...] Diagnosis Comments CBC WITH AUTO DIFFERENTIAL Routine 10/24/2024 7:45 AM EDT Schizoaffective disorder, unspecified (CMS/HCC V24, CMS/HCC V28) CBC AND DIFFERENTIAL Routine 10/24/2024 7:45 AM EDT Schizoaffective disorder, unspecified (CMS/HCC V24, CMS/HCC V28) AMMONIA Routine 10/24/2024 7:45 AM EDT Schizoaffective disorder, unspecified (CMS/HCC V24, CMS/HCC V28) documented in this encounter Results * (ABNORMAL) CBC auto differential (10/24/2024 7:45 AM EDT) WBC 6.4 4.8 - 10.8 K/[facility] LAB HEMETOLOGY METHOD 10/24/2024 8:14 AM [facility] LAB RBC 4.30(L) 4.50 - 5.50 M/mcL LAB HEMETOLOGY METHOD 10/24/2024 8:14 AM [facility] LAB Hemoglobin 12.8(L) 13.5 - 17.5 g/dL LAB HEMETOLOGY METHOD 10/24/2024 8:14 AM [facility] LAB Hematocrit 39.4(L) 42.0 - 54.0 % LAB HEMETOLOGY METHOD 10/24/2024 8:14 AM [facility] LAB MCV 92.7 79.0 - 98.0 FL LAB HEMETOLOGY METHOD 10/24/2024 8:14 AM [facility] LAB MCH 30.1 27.0 - 32.0 pcg LAB HEMETOLOGY METHOD 10/24/2024 8:14 AM [facility] LAB MCHC 32.5 32.0 - 37.0 g/dL LAB HEMETOLOGY METHOD 10/24/2024 8:14 AM [facility] LAB RDW 14.5 11.0 - 15.0 % LAB HEMETOLOGY METHOD 10/24/2024 8:14 AM [facility] LAB Platelets 151 130 - 400 K/mcL LAB HEMETOLOGY METHOD 10/24/2024 8:14 AM [facility] LAB MPV 9.8 7.0 - 11.0 FL LAB HEMETOLOGY METHOD 10/24/2024 8:14 AM [facility] LAB NRBC 0.0 <1.0 % LAB HEMETOLOGY METHOD 10/24/2024 8:14 AM [facility] LAB NRBC Absolute 0.00 <0.10 K/mcL LAB HEMETOLOGY METHOD 10/24/2024 8:14 AM [facility] LAB Neutrophils Relative 54.2 % LAB HEMETOLOGY METHOD 10/24/2024 8:14 AM [facility] LAB Lymphocytes Relative 34.0 % LAB HEMETOLOGY METHOD 10/24/2024 8:14 AM [facility] LAB Monocytes Relative 8.5 % LAB HEMETOLOGY METHOD 10/24/2024 8:14 AM [facility] LAB Eosinophils Relative 1.9 % LAB HEMETOLOGY METHOD 10/24/2024 8:14 AM [facility] LAB Basophils Relative 0.6 % LAB HEMETOLOGY METHOD 10/24/2024 8:14 AM [facility] LAB Immature Granulocytes Relative 0.8 % LAB HEMETOLOGY METHOD 10/24/2024 8:14 AM [facility] LAB Neutrophils Absolute 3.49 1.50 - 7.00 K/mcL LAB HEMETOLOGY METHOD 10/24/2024 8:14 AM [facility] LAB Lymphocytes Absolute 2.19 1.00 - 5.00 K/mcL LAB HEMETOLOGY METHOD 10/24/2024 8:14 AM [facility] LAB Monocytes Absolute 0.55 0.20 - 1.00 K/mcL LAB HEMETOLOGY METHOD 10/24/2024 8:14 AM [facility] LAB Eosinophils Absolute 0.12 0.00 - 0.50 K/mcL LAB HEMETOLOGY METHOD 10/24/2024 8:14 AM [facility] LAB Basophils Absolute 0.04 0.00 - 0.20 K/mcL LAB HEMETOLOGY METHOD 10/24/2024 8:14 AM [facility] LAB Immature Granulocytes Absolute 0.05(H) 0.00 - 0.03 K/mcL LAB HEMETOLOGY METHOD 10/24/2024 8:14 AM [facility] LAB Blood Venous blood specimen / Unknown 10/24/2024 7:45 AM EDT 10/24/2024 8:11 AM EDT us Cuco Ledezma MD LAB BLOOD ORDERABLES Final Resul t Performing Organization Address City/[facility]/ZIP Co de Phone Number [facility] LAB [address] [place] [address], [place] [phone] * (ABNORMAL) Ammonia (10/24/2024 7:45 AM EDT) Ammonia 36(H) 11 - 35 mcmol/L LAB CHEMISTRY METHOD 10/24/2024 8:36 AM EDT [facility] LAB Blood Venous blood specimen / Unknown 10/24/2024 7:45 AM EDT 10/24/2024 8:11 AM EDT us Cuco Ledezma MD LAB BLOOD ORDERABLES Final Resul t Performing Organization Address [facility]/ZIP Co de Phone Number [facility] [address] [place] [address], [place] [phone] documented in this encounter Visit Diagnoses Diagnosis Schizoaffective disorder, unspecified (CMS/HCC V24, CMS/HCC V28) documented in this encounter Care Teams Human Resources Department Supervisor Relationship Specialty Start Date End Date Cuco Ledezma MD [address] [place] [address] Dr [address] [place], [place] PCP - General Internal Medicine 08/26/24 documented as of this encounter
--- OUTSIDE RECORDS SUMMARY | 2025-02-14 09:14 | XMS_ITS | Encounter Summary ---
Author Organization [email or web address] [facility] Address [id number] [place] [phone] Care Team Providers Care Manufacturing Production Technician Name Role Phone Cuco Ledezma MD Primary Care Provider [phone] Encounter Details Date Type Department Care Team (Latest Contact Info) Description 12/19/2024 Lab Requisition [facility] Lab [address] [place] [address] Cuco Ledezma MD [address] [place] [address] Dr [address] MURALI Estrada Schizoaffective disorder, unspecified (CMS/HCC V24, CMS/HCC V28) [...] Diagnosis Comments CBC WITH AUTO DIFFERENTIAL Routine 12/19/2024 6:37 AM EDT Schizoaffective disorder, unspecified (CMS/HCC V24, CMS/HCC V28) CBC AND DIFFERENTIAL Routine 12/19/2024 6:37 AM EDT Schizoaffective disorder, unspecified (CMS/HCC V24, CMS/HCC V28) documented in this encounter Results * (ABNORMAL) CBC auto differential (12/19/2024 6:37 AM EDT) WBC 7.1 4.8 - 10.8 K/[facility] LAB HEMETOLOGY METHOD 12/19/2024 8:01 AM EDT [facility] RBC 4.00(L) 4.50 - 5.50 M/[facility] LAB HEMETOLOGY METHOD 12/19/2024 8:01 AM [facility] LAB Hemoglobin 11.9(L) 13.5 - 17.5 g/dL LAB HEMETOLOGY METHOD 12/19/2024 8:01 AM [facility] LAB Hematocrit 36.6(L) 42.0 - 54.0 % LAB HEMETOLOGY METHOD 12/19/2024 8:01 AM [facility] LAB MCV 92.4 79.0 - 98.0 FL LAB HEMETOLOGY METHOD 12/19/2024 8:01 AM [facility] LAB MCH 30.1 27.0 - 32.0 pcg LAB HEMETOLOGY METHOD 12/19/2024 8:01 AM [facility] LAB MCHC 32.5 32.0 - 37.0 g/dL LAB HEMETOLOGY METHOD 12/19/2024 8:01 AM [facility] LAB RDW 14.8 11.0 - 15.0 % LAB HEMETOLOGY METHOD 12/19/2024 8:01 AM [facility] LAB Platelets 143 130 - 400 K/mcL LAB HEMETOLOGY METHOD 12/19/2024 8:01 AM [facility] LAB MPV 9.7 7.0 - 11.0 FL LAB HEMETOLOGY METHOD 12/19/2024 8:01 AM [facility] LAB NRBC 0.0 <1.0 % LAB HEMETOLOGY METHOD 12/19/2024 8:01 AM [facility] LAB NRBC Absolute 0.00 <0.10 K/mcL LAB HEMETOLOGY METHOD 12/19/2024 8:01 AM [facility] LAB Neutrophils Relative 48.6 % LAB HEMETOLOGY METHOD 12/19/2024 8:01 AM [facility] LAB Lymphocytes Relative 39.4 % LAB HEMETOLOGY METHOD 12/19/2024 8:01 AM EDT [facility] LAB Monocytes Relative 8.5 % LAB HEMETOLOGY METHOD 12/19[facility]2024 8[facility] Eosinophils Relative 2.5 % LAB HEMETOLOGY METHOD 12/19/2024 8:01 AM [facility] LAB Basophils Relative 0.4 % LAB HEMETOLOGY METHOD 12/19/2024 8:01 [facility] Immature Granulocytes Relative 0.6 % LAB HEMETOLOGY METHOD 12/19/2024 8:01 AM [facility] LAB Neutrophils Absolute 3.44 1.50 - 7.00 K/mcL LAB HEMETOLOGY METHOD 12/19/2024 8:01 AM [facility] LAB Lymphocytes Absolute 2.79 1.00 - 5.00 K/mcL LAB HEMETOLOGY METHOD 12/19/2024 8:01 [facility] Monocytes Absolute 0.60 0.20 - 1.00 K/mcL LAB HEMETOLOGY METHOD 12/19/2024 8:01 AM [facility] LAB Eosinophils Absolute 0.18 0.00 - 0.50 K/mcL LAB HEMETOLOGY METHOD 12/19/2024 8:01 AM [facility] LAB Basophils Absolute 0.03 0.00 - 0.20 K/mcL LAB HEMETOLOGY METHOD 12/19/2024 8:01 AM [facility] LAB Immature Granulocytes Absolute 0.04(H) 0.00 - 0.03 K/mcL LAB HEMETOLOGY METHOD 12/19/2024 8:01 AM [facility] LAB Blood Venous blood specimen / Unknown 12/19/2024 6:37 AM EDT 12/19/2024 7:57 AM EDT us Cuco Ledezma MD LAB BLOOD ORDERABLES Final Resul t [facility] [address] [place] [address], documented in this encounter Visit Diagnoses Diagnosis Schizoaffective disorder, unspecified (CMS/HCC V24, CMS/HCC V28) documented in this encounter Care Teams Manufacturing Production Technician Relationship Specialty Start Date End Date Cuco Ledezma MD [address] [place] [address] Dr [address] [place], [place] PCP - General Internal Medicine 08/26/24 documented as of this encounter
--- NOTE | 2025-02-14 09:45 | PC.NURSE ---
Patient presents to ED from [facility] EMS reports patient had 4 falls witnessed by staff Patient is A&O x1 baseline, NO LOC, no downtime, Patient has Lac to frontal lobe of head dressed by EMS Patient in C collar IV 20 G in left wrist Provider in to see patient Plan of care on going
[2025-02-14 09:50] LABS: MANUAL DIFF FLAG NO
[2025-02-14 09:54] LABS: Hematocrit 44.9 % (42.0-52.0); Hemoglobin 14.6 g/dl (14.0-18.0); Imm Gran Abs Auto 0.05 X10*3/uL (0.00-0.03); Imm Gran Pct Auto 0.6 % (0.0-0.4); Lymphocytes Absolute Auto 1.4 X10*3/uL (1.2-4.9); Mean Corpuscular HGB Conc 32.5 g/dl (31.0-36.0); Mean Corpuscular Hemoglobin 30.5 pg (27.0-33.0); Mean Corpuscular Volume 93.7 fL (80.0-98.0); NRBC Abs Auto 0.000 X10*3/uL (0.0-0.012); NRBC Pct Auto 0.0 /100WBC (0.0-0.2); Platelet Count 224 X10*3/uL (160-400); Red Blood Count 4.79 X10*6/uL (4.60-5.80); White Blood Count 8.9 X10*3/uL (4.8-10.8)
--- NOTE | 2025-02-14 09:55 | ED.FALL ---
HPI - Fall General Chief Complaint: Fall Stated Complaint: multiple falls, lac to head Time Seen by Provider: 02/14/25 09:55 Source: patient and EMS Mode of arrival: EMS Limitations: no limitations History of Present Illness ED Provider: CAMPOS CIFUENTES PA-C HPI Narrative: 69-year-old male with pmhx significant for schizoaffective disorder, MDD, Alzheimer's dementia, HTN, HLD, asthma, GERD, type 2 diabetes presents to the ED today via EMS from [facility] for evaluation following multiple falls this morning witnessed by staff. Per staff at facility, patient was witnessed to leap out of his bed, landing on his face. There was no loss of consciousness observed. He was noted to have a laceration to the top of his head. Staff reported that patient appeared more confused when compared to his baseline. EMS was contacted, patient was placed in cervical collar, and he was transported to our ED. On arrival, patient appears agitated, attempting to throw himself out of bed. He denies any complaints/ concerns on my initial interview. States how far underground are you going [place] put me [place] the [place] . Making other passive SI statements regarding no longer wanting to live. No specific plan. Related Data Home Medications ?Medication ?Instructions ?Recorded ?Confirmed clozapine 100 mg tablet 300 mg PO TID 02/15/25 02/15/25 diazepam 2 mg tablet (Valium) 3 mg PO BID 02/15/25 02/15/25 divalproex 500 mg tablet,delayed 500 mg PO BID 02/15/25 02/15/25 release docusate sodium 100 mg capsule 100 mg PO BID 02/15/25 02/15/25 (Colace) dulaglutide 3 mg/0.5 mL 3 mg subcut QWEEK 02/15/25 02/15/25 subcutaneous pen injector (Trulicity) fluoxetine 40 mg capsule 40 mg PO QPM 02/15/25 02/15/25 glucagon 1 mg/0.2 mL subcutaneous 1 mg subcut Q20M PRN low BG 02/15/25 02/15/25 solution insulin glargine 100 unit/mL (3 24 unit subcut QAM 02/15/25 02/15/25 mL) subcutaneous pen (Lantus Solostar U-100 Insulin) lorazepam 1 mg tablet 1 mg PO BID 02/15/25 02/15/25 metformin 1,000 mg tablet 1,000 mg PO BID 02/15/25 02/15/25 metoprolol tartrate 25 mg tablet 12.5 mg PO BID 02/15/25 02/15/25 pantoprazole 40 mg tablet,delayed 40 mg PO DAILY 02/15/25 02/15/25 release perphenazine 2 mg tablet 2 mg PO BID 02/15/25 02/15/25 perphenazine 4 mg tablet 4 mg PO BID 02/15/25 02/15/25 sennosides 8.6 mg tablet (senna) 8.6 mg PO DAILY 02/15/25 02/15/25 sodium phosphates 19 gram-7 118 ml SD DAILY PRN Constipation 02/15/25 02/15/25 gram/118 mL enema (Fleet Enema) Allergies Allergy/AdvReac Type Severity Reaction Status Date / Time No Known Allergies Allergy Verified 02/14/25 08:42 Review of Systems Review of Systems: Yes all other systems are reviewed and are negative PMFSH Past Medical History Attestation statement: The following information was validated with the patient. Source: old records reviewed and nursing notes reviewed Physical Exam Vital Signs: Vital Signs: Last Vital Signs Temp 96.7 F L 02/16/25 14:59 Pulse 94 02/16/25 14:59 Resp 25 H 02/16/25 16:00 BP 122/61 02/16/25 15:22 Pulse Ox 94 02/16/25 16:01 O2 Del Method Nasal Cannula 02/16/25 16:01 O2 Flow Rate 2 02/16/25 16:01 BMI result Body Mass Index 23.2 hypertensive, vitals are otherwise wnl General: thin appearing, resting tremor Skin: Warm, dry, intact. No rashes or lesions. Head: moderate sized hematoma noted to left frontal scalp with overlying L shaped laceration. no involvement of deeper structures EENT: Hearing is intact b/l. Conjunctiva clear. PERRLA. EOM intact. Moist mucous membranes.? Neck: cervical collar in place Cardiac: Chest wall symmetric. RRR Lungs: Normal respiratory effort without accessory muscle use. CTA bilaterally Abdomen: Soft, non-tender, non-distended. No rebound tenderness or guarding. Positive BS x4. Back: no midline spinous or paraspinal tenderness. No step off deformity. Ext: Upper and lower extremities atraumatic, without tenderness, deformity, swelling or erythema Neuro: alert, not oriented to person, place, or situation which appears to be his baseline. No facial droop, slurred speech. strength 3/5 intact throughout. Course Course Course Narrative: 1000 -- Patient agitated, attempting to jump out of bed, cervical collar is in place. Multiple staff members at bedside attempting to redirect patient, unsuccessful. patient stating that he wants to , making odd statements about being put into a grave. > gas charger aware - sitting at bedside. IM zyprexa ordered. > scalp laceration repaired with 5 kirsten. patient tolerated well. bleeding controlled - dressing applied. > attempted to contact patient's guardian Radha Vo at [phone]. no answer, LVM for call back > spoke with RN at [facility] regarding transfer here - she states that patient has self harming behviors at baseline and has a 1:1 sitter at all times while at facility. 1100 -- patient still agitated, not cooperating and attempting to jump out of bed w/ sitter in room. his head and neck need to be scanned. another dose of IM zyprexa ordered. > CBC without leukocytosis. No anemia. H&H stable. Chemistry shows hyponatremia to 149, elevated when compared to sodium of 143 just 2 months ago. He has an anion gap of 23, question starvation ketosis. Random glucose is 157. I do not have concern for DKA at this time. Liver function WNL. Troponin WNL. > hyponatremia may be secondary to patient's divalproex sodium prescription however will add on serum osmolality, urine osmolality/sodium for further evaluation > will order 1L LR with plan to repeat labs > UA pending > attempted to contact patient's guardian Radha Vo at [phone]. no answer, LVM for call back. 1259 -- patient continues attempting to swing at staff. discussed with my attending - IM nathan ordered. 1340 -- CT head without intracranial bleed or skull fracture. ct cervical spine without fracture. collar removed. > pending IV + LR and repeat labs > pending UA 1700 -- urinalysis does not demonstrate infection. repeat BMP shows resolution of hypernatremia, now 143. anion gap closed. likely secondary to dementia/ decreased PO intake. 1726 -- RN Jose spoke with [facility] staff regarding transport back to facility. he was informed that patient was placed on a section 12 prior to arrival at our facility and as so, he cannot return. We were not informed of this section 12 at any point during his stay here. I have reviewed all paper work from facility and the section was not included in his paperwork. I specifically spoke with patient's RN this morning on patient's arrival and this was never mentioned. requested facility to fax over section 12. > at this time, care team will be consulted for patient clearance back to facility. he will be placed in physician observation until disposition. paperwork from facility indicates that patient is a full code. we have also requested completed MOLST form from facility. 3:05PM 02/16/2025 (Cassie Puente PA-C): Patient in a physician observation status, it was brought to my attention that patient has been very lethargic, unable to take any of his medications p.o.. I assess patient, he has normal vital signs, normal POC however obtunded, not responsive to any verbal or sternal rub. Given this finding, will repeat labs, we will also obtain CT head, and chest x-ray. 4:06 PM 02/16/2025 (Cassie Puente PA-C): Repeat labs show no leukocytosis, stable H&H, chemistry revealing no significant electrolyte derangement. Chest x-ray showing left basilar atelectasis, pneumonia is not excluded. It was brought to my attention that patient had an episode of hypoxia, and dipped down to 83% on room air, patient placed on 2 L nasal cannula. Will obtain head CT to ensure no developing ICH that was not detected initially on the CAT scan, and CT of the chest to rule out PE/ pneumonia 5:51 PM 02/16/2025 (Cassie Puente PA-C): CAT scan returns, awaiting official report however I reviewed the CT scan, does appear that patient has a left lower lobe pneumonia, he was already treated with IV antibiotics. Patient does not have a lactic acidosis, he is receiving IV fluids. Patient did have an episode where he started coughing, respiratory therapist and tech at bedside was able to suction him, he is now speaking and more alert, appears to be under no acute distress. Given hypoxia requiring supplemental O2, with pneumonia, patient needs to be admitted for further management. Discussed case with Dr. Arteaga transfer of care initiated. Medications Administered Generic Name Dose Route Start Last Admin Trade Name Shanice PRN Reason Stop Dose Admin Clozapine 300 mg 02/15/25 22:30 02/16/25 17:32 Clozapine 100 Mg Tablet PO Not Given TID NATE Divalproex Sodium 500 mg 02/15/25 22:30 02/16/25 11:58 Divalproex Sodium 500 Mg Tablet. PO Not Given BID NATE Docusate Sodium 100 mg 02/15/25 22:30 02/16/25 11:58 Docusate Sodium 100 Mg Capsule PO Not Given BID NATE Fluoxetine HCl 40 mg 02/15/25 22:30 02/15/25 23:18 Fluoxetine Hcl 20 Mg Capsule PO 40 mg BEDTIME NATE Administration Insulin Glargine 24 unit 02/16/25 09:00 02/16/25 12:17 Insulin Glargine,Hum.Rec.Anlog 100 Unit/Ml 10 Ml Vial SUBCUT Not Given DAILY [facility] Metoprolol Tartrate 12.5 mg 02/15/25 22:30 02/16/25 11:58 Metoprolol Tartrate 12.5 Mg Halftab PO Not Given BID [facility] Protocol Omeprazole 20 mg 02/16/25 06:30 02/16/25 11:58 Omeprazole 20 Mg Capsule.Dr PO Not Given DAILY@0630 NATE Perphenazine 2 mg 02/15/25 22:30 02/16/25 11:58 Perphenazine 2 Mg Tablet PO Not Given BID [facility] Perphenazine 4 mg 02/15/25 22:30 02/16/25 11:58 Perphenazine 4 Mg Tablet PO Not Given BID [facility] Senna 8.6 mg 02/16/25 09:00 02/16/25 11:59 Sennosides 8.6 Mg Tablet PO Not Given DAILY NATE Discontinued Medications Generic Name Dose Route Start Last Admin Trade Name Shanice PRN Reason Stop Dose Admin Ceftriaxone Sodium 1 gm 02/16/25 16:26 02/16/25 16:40 Ceftriaxone Sodium 1 Gm Vial IVPUSH 02/16/25 16:27 1 gm ONCE ONE Administration Diazepam 5 mg 02/14/25 12:59 02/14/25 13:42 Diazepam 10 Mg/2 Ml Cartridge IM 02/14/25 13:00 5 mg STAT STA Administration Diazepam 3 mg 02/15/25 22:30 02/16/25 11:58 Diazepam 2 Mg Tablet PO Not Given BID NATE Lactated Ringer's 1,000 mls @ 999 mls/hr 02/14/25 12:45 02/14/25 14:43 Lr IV 02/14/25 13:45 Infused .Q1H1M NATE Infusion Sodium Chloride 1,000 mls @ 999 mls/hr 02/16/25 16:26 02/16/25 17:38 Ns IVCONT 02/16/25 17:26 999 mls/hr .Q1H1M ONE Administration Doxycycline Hyclate 100 mg/ 250 mls @ 166.67 mls/hr 02/16/25 16:26 02/16/25 17:37 Sodium Chloride IV 02/16/25 17:55 166.67 mls/hr ONCE ONE Administration Iohexol 100 ml 02/16/25 17:29 02/16/25 17:30 Iohexol 350 Mg/Ml 100 Ml Infus..Btl IV 02/16/25 17:30 70 ml ONCE ONE Administration Lorazepam 1 mg 02/15/25 22:30 02/16/25 11:58 Lorazepam 1 Mg Tablet PO Not Given BID NATE Metformin HCl 1,000 mg 02/15/25 22:30 02/16/25 11:58 Metformin Hcl 1,000 Mg Tablet PO Not Given BID NATE Olanzapine 5 mg 02/14/25 10:09 02/14/25 10:32 Olanzapine 10 Mg Vial IM 02/14/25 10:10 5 mg ONCE ONE Administration Olanzapine 5 mg 02/14/25 11:12 02/14/25 11:37 Olanzapine 10 Mg Vial IM 02/14/25 11:13 5 mg STAT STA Administration Medical Decision Making Medical Decision Making MDM Narrative: 69-year-old male with pmhx significant for schizoaffective disorder, MDD, Alzheimer's dementia, HTN, HLD, asthma, GERD, type 2 diabetes presents to the ED today via EMS from [facility] for evaluation following multiple falls this morning witnessed by staff. hypertensive, vitals are otherwise wnl. Differential diagnosis includes anemia, electrolyte abnormality, dehydration, self-harming behavior, depression, schizoaffective disorder, schizophrenia, dementia, FTT, deconditioning Plan for labs, imaging, laceration repair, UA, re-evaluation. Differential Diagnosis Differential Diagnoses: The differential diagnosis associated with the presentation includes as above. Admission/Observation not indicated. Lab Data MDM Lab Attestation statement: I reviewed the patient's lab results. as above. 02/16/25 15:00 02/16/25 15:00 Labs: Lab Results 02/14/25 02/14/25 02/14/25 Range/Units 09:47 15:08 16:22 WBC 8.9 (4.8-10.8) X10*3/uL RBC 4.79 (4.60-5.80) X10*6/uL Hgb 14.6 (14.0-18.0) g/dl Hct 44.9 (42.0-52.0) % MCV 93.7 (80.0-98.0) fL MCH 30.5 (27.0-33.0) pg MCHC 32.5 (31.0-36.0) g/dl RDW 14.0 (11.0-16.0) % Plt Count 224 D (160-400) X10*3/uL MPV 8.9 L (9.4-12.4) fL Immature Gran % (Auto) 0.6 H (0.0-0.4) % Neut % (Auto) 75.5 H (45-73) % Lymph % (Auto) 15.2 L (20-40) % [place] % (Auto) 8.1 (2-11) % Eos % (Auto) 0.3 (0-4) % Baso % (Auto) 0.3 (0-2) % Lymph # (Auto) 1.4 (1.2-4.9) X10*3/uL [place] # (Auto) 0.7 (0.1-1.2) X10*3/uL Eos # (Auto) 0.0 (0.0-0.4) X10*3/uL Baso # (Auto) 0.0 (0.0-0.2) X10*3/uL Abs Immat Gran (auto) 0.05 H (0.00-0.03) X10*3/uL Absolute Neuts (auto) 6.7 (2.0-8.3) x10*3/uL Absolute Nucleated RBC 0.000 (0.0-0.012) X10*3/uL Nucleated RBC % (auto) 0.0 (0.0-0.2) /100WBC VBG pH (7.32-7.43) VBG pCO2 mmHg VBG pO2 mmHg VBG HCO3 (22-26) mmol/L VBG O2 Saturation % VBG Base Excess mmol/L Sodium 149 H 143 (135-145) mmol/L Potassium 4.8 4.0 (3.3-5.1) mmol/L Chloride 107 109 H (96-108) mmol/L Carbon Dioxide 24 23 (22-29) mmol/L Anion Gap 23 H 15 (12-20) BUN 9 8 L (9-16) mg/dL Creatinine 0.75 0.58 (0.5-1.4) mg/dL Estim Creat Clear Calc 89.3 115.5 Estimated GFR > 60 > 60 POC Glucose (60-115) mg/dL Random Glucose 157 H 111 (60-115) mg/dL Osmolality 302 (281-305) mosm/kg Lactic Acid (0.5-2.0) mmol/L Calcium 10.2 D 9.2 D (8.4-10.2) mg/dL Total Bilirubin 0.5 (0.0-1.0) mg/dL AST 35 (5-37) U/L ALT 17 (0-40) U/L Alkaline Phosphatase 105 (39-117) U/L Ammonia (13-55) umol/L Troponin I High Sens 8.1 (<3.5-35.0) ng/L Total Protein 7.6 (6.5-8.0) g/dL Albumin 4.2 (3.5-5.0) g/dL Urine Color Yellow Urine Appearance Clear Urine pH 7.5 (5.0-9.0) Ur Specific Glide 1.020 (1.005-1.025) Urine Protein 30 (1+) H (Neg-Trace) mg/dL Urine Glucose (UA) 250 H (Negative) mg/dL Urine Ketones 40 (Negative) mg/dL Urine Blood Negative (Negative) Urine Nitrite Negative (Negative) Ur Leukocyte Esterase Negative (Negative) Urine RBC 0-2 (0-2) /HPF Urine WBC 0-5 (0-5) /HPF Ur Squamous Epith Cells 0-2 (0-2) /HPF Urine Bacteria None Seen (None Seen) Hyaline Casts 0-2 (0-2) /LPF Urine Osmolality 684 (373-1093) mosm/kg Ur Random Sodium 197.0 mmol/L Urine Opiates Screen (Not Detect) Ur Buprenorphine Scrn (Not Detect) ng/mL Ur Oxycodone Screen (Not Detect) ng/mL Urine Methadone Screen (Not Detect) ng/mL Urine Fentanyl Screen (Not Detect) Ur Barbiturates Screen (Not Detect) Ur Phencyclidine Scrn (Not Detect) Ur Amphetamines Screen (Not Detect) U Benzodiazepines Scrn (Not Detect) Urine Cocaine Screen (Not Detect) U Marijuana (THC) Screen (Not Detect) COVID-19 (KILEY) (Negative) COVID-19 Clin Com Influenza Type A (PRINCESS) (Negative) Influenza Type B (PRINCESS) (Negative) Influenza A & B Note 02/16/25 02/16/25 02/16/25 Range/Units 12:08 14:03 15:00 WBC 6.9 (4.8-10.8) X10*3/uL RBC 5.37 (4.60-5.80) X10*6/uL Hgb 16.4 (14.0-18.0) g/dl Hct 49.1 (42.0-52.0) % MCV 91.4 (80.0-98.0) fL MCH 30.5 (27.0-33.0) pg MCHC 33.4 (31.0-36.0) g/dl RDW 14.1 (11.0-16.0) % Plt Count 197 (160-400) X10*3/uL MPV 8.9 L (9.4-12.4) fL Immature Gran % (Auto) 0.3 (0.0-0.4) % Neut % (Auto) 56.8 (45-73) % Lymph % (Auto) 33.9 (20-40) % [place] % (Auto) 6.2 (2-11) % Eos % (Auto) 2.2 (0-4) % Baso % (Auto) 0.6 (0-2) % Lymph # (Auto) 2.4 (1.2-4.9) X10*3/uL [place] # (Auto) 0.4 (0.1-1.2) X10*3/uL Eos # (Auto) 0.2 (0.0-0.4) X10*3/uL Baso # (Auto) 0.0 (0.0-0.2) X10*3/uL Abs Immat Gran (auto) 0.02 (0.00-0.03) X10*3/uL Absolute Neuts (auto) 3.9 (2.0-8.3) x10*3/uL Absolute Nucleated RBC 0.000 (0.0-0.012) X10*3/uL Nucleated RBC % (auto) 0.0 (0.0-0.2) /100WBC VBG pH (7.32-7.43) VBG pCO2 mmHg VBG pO2 mmHg VBG HCO3 (22-26) mmol/L VBG O2 Saturation % VBG Base Excess mmol/L Sodium 143 (135-145) mmol/L Potassium 4.4 (3.3-5.1) mmol/L Chloride 105 (96-108) mmol/L Carbon Dioxide 27 (22-29) mmol/L Anion Gap 15 (12-20) BUN 17 H (9-16) mg/dL Creatinine 0.86 (0.5-1.4) mg/dL Estim Creat Clear Calc 77.9 Estimated GFR > 60 POC Glucose 91 93 (60-115) mg/dL Random Glucose 104 (60-115) mg/dL Osmolality (281-305) mosm/kg Lactic Acid (0.5-2.0) mmol/L Calcium 10.0 D (8.4-10.2) mg/dL Total Bilirubin 0.5 (0.0-1.0) mg/dL AST 30 (5-37) U/L ALT 17 (0-40) U/L Alkaline Phosphatase 116 (39-117) U/L Ammonia 22 (13-55) umol/L Troponin I High Sens (<3.5-35.0) ng/L Total Protein 7.9 (6.5-8.0) g/dL Albumin 4.1 (3.5-5.0) g/dL Urine Color Urine Appearance Urine pH (5.0-9.0) Ur Specific Glide (1.005-1.025) Urine Protein (Neg-Trace) mg/dL Urine Glucose (UA) (Negative) mg/dL Urine Ketones (Negative) mg/dL Urine Blood (Negative) Urine Nitrite (Negative) Ur Leukocyte Esterase (Negative) Urine RBC (0-2) /HPF Urine WBC (0-5) /HPF Ur Squamous Epith Cells (0-2) /HPF Urine Bacteria (None Seen) Hyaline Casts (0-2) /LPF Urine Osmolality (373-1093) mosm/kg Ur Random Sodium mmol/L Urine Opiates Screen (Not Detect) Ur Buprenorphine Scrn (Not Detect) ng/mL Ur Oxycodone Screen (Not Detect) ng/mL Urine Methadone Screen (Not Detect) ng/mL Urine Fentanyl Screen (Not Detect) Ur Barbiturates Screen (Not Detect) Ur Phencyclidine Scrn (Not Detect) Ur Amphetamines Screen (Not Detect) U Benzodiazepines Scrn (Not Detect) Urine Cocaine Screen (Not Detect) U Marijuana (THC) Screen (Not Detect) COVID-19 (KILEY) (Negative) COVID-19 Clin Com Influenza Type A (PRINCESS) (Negative) Influenza Type B (PRINCESS) (Negative) Influenza A & B Note 02/16/25 02/16/25 02/16/25 Range/Units 15:24 16:28 16:35 WBC (4.8-10.8) X10*3/uL RBC (4.60-5.80) X10*6/uL Hgb (14.0-18.0) g/dl Hct (42.0-52.0) % MCV (80.0-98.0) fL MCH (27.0-33.0) pg MCHC (31.0-36.0) g/dl RDW (11.0-16.0) % Plt Count (160-400) X10*3/uL MPV (9.4-12.4) fL Immature Gran % (Auto) (0.0-0.4) % Neut % (Auto) (45-73) % Lymph % (Auto) (20-40) % [place] % (Auto) (2-11) % Eos % (Auto) (0-4) % Baso % (Auto) (0-2) % Lymph # (Auto) (1.2-4.9) X10*3/uL [place] # (Auto) (0.1-1.2) X10*3/uL Eos # (Auto) (0.0-0.4) X10*3/uL Baso # (Auto) (0.0-0.2) X10*3/uL Abs Immat Gran (auto) (0.00-0.03) X10*3/uL Absolute Neuts (auto) (2.0-8.3) x10*3/uL Absolute Nucleated RBC (0.0-0.012) X10*3/uL Nucleated RBC % (auto) (0.0-0.2) /100WBC VBG pH 7.41 (7.32-7.43) VBG pCO2 40 mmHg VBG pO2 54 mmHg VBG HCO3 25 (22-26) mmol/L VBG O2 Saturation 82.0 % VBG Base Excess 1.0 mmol/L Sodium (135-145) mmol/L Potassium (3.3-5.1) mmol/L Chloride (96-108) mmol/L Carbon Dioxide (22-29) mmol/L Anion Gap (12-20) BUN (9-16) mg/dL Creatinine (0.5-1.4) mg/dL Estim Creat Clear Calc Estimated GFR POC Glucose (60-115) mg/dL Random Glucose (60-115) mg/dL Osmolality (281-305) mosm/kg Lactic Acid 1.9 (0.5-2.0) mmol/L Calcium (8.4-10.2) mg/dL Total Bilirubin (0.0-1.0) mg/dL AST (5-37) U/L ALT (0-40) U/L Alkaline Phosphatase (39-117) U/L Ammonia 23 (13-55) umol/L Troponin I High Sens (<3.5-35.0) ng/L Total Protein (6.5-8.0) g/dL Albumin (3.5-5.0) g/dL Urine Color Yellow Urine Appearance Clear Urine pH 5.5 (5.0-9.0) Ur Specific Glide 1.020 (1.005-1.025) Urine Protein Negative (Neg-Trace) mg/dL Urine Glucose (UA) Negative (Negative) mg/dL Urine Ketones 15 (Negative) mg/dL Urine Blood Negative (Negative) Urine Nitrite Negative (Negative) Ur Leukocyte Esterase Negative (Negative) Urine RBC (0-2) /HPF Urine WBC (0-5) /HPF Ur Squamous Epith Cells (0-2) /HPF Urine Bacteria (None Seen) Hyaline Casts (0-2) /LPF Urine Osmolality (373-1093) mosm/kg Ur Random Sodium mmol/L Urine Opiates Screen Not Detected (Not Detect) Ur Buprenorphine Scrn Not Detected (Not Detect) ng/mL Ur Oxycodone Screen Not Detected (Not Detect) ng/mL Urine Methadone Screen Not Detected (Not Detect) ng/mL Urine Fentanyl Screen Not Detected (Not Detect) Ur Barbiturates Screen Not Detected (Not Detect) Ur Phencyclidine Scrn Not Detected (Not Detect) Ur Amphetamines Screen Not Detected (Not Detect) U Benzodiazepines Scrn POSITIVE H (Not Detect) Urine Cocaine Screen Not Detected (Not Detect) U Marijuana (THC) Screen Not Detected (Not Detect) COVID-19 (KILEY) (Negative) COVID-19 Clin Com Influenza Type A (PRINCESS) (Negative) Influenza Type B (PRINCESS) (Negative) Influenza A & B Note 02/16/25 Range/Units 16:41 WBC (4.8-10.8) X10*3/uL RBC (4.60-5.80) X10*6/uL Hgb (14.0-18.0) g/dl Hct (42.0-52.0) % MCV (80.0-98.0) fL MCH (27.0-33.0) pg MCHC (31.0-36.0) g/dl RDW (11.0-16.0) % Plt Count (160-400) X10*3/uL MPV (9.4-12.4) fL Immature Gran % (Auto) (0.0-0.4) % Neut % (Auto) (45-73) % Lymph % (Auto) (20-40) % [place] % (Auto) (2-11) % Eos % (Auto) (0-4) % Baso % (Auto) (0-2) % Lymph # (Auto) (1.2-4.9) X10*3/uL [place] # (Auto) (0.1-1.2) X10*3/uL Eos # (Auto) (0.0-0.4) X10*3/uL Baso # (Auto) (0.0-0.2) X10*3/uL Abs Immat Gran (auto) (0.00-0.03) X10*3/uL Absolute Neuts (auto) (2.0-8.3) x10*3/uL Absolute Nucleated RBC (0.0-0.012) X10*3/uL Nucleated RBC % (auto) (0.0-0.2) /100WBC VBG pH (7.32-7.43) VBG pCO2 mmHg VBG pO2 mmHg VBG HCO3 (22-26) mmol/L VBG O2 Saturation % VBG Base Excess mmol/L Sodium (135-145) mmol/L Potassium (3.3-5.1) mmol/L Chloride (96-108) mmol/L Carbon Dioxide (22-29) mmol/L Anion Gap (12-20) BUN (9-16) mg/dL Creatinine (0.5-1.4) mg/dL Estim Creat Clear Calc Estimated GFR POC Glucose (60-115) mg/dL Random Glucose (60-115) mg/dL Osmolality (281-305) mosm/kg Lactic Acid (0.5-2.0) mmol/L Calcium (8.4-10.2) mg/dL Total Bilirubin (0.0-1.0) mg/dL AST (5-37) U/L ALT (0-40) U/L Alkaline Phosphatase (39-117) U/L Ammonia (13-55) umol/L Troponin I High Sens (<3.5-35.0) ng/L Total Protein (6.5-8.0) g/dL Albumin (3.5-5.0) g/dL Urine Color Urine Appearance Urine pH (5.0-9.0) Ur Specific Glide (1.005-1.025) Urine Protein (Neg-Trace) mg/dL Urine Glucose (UA) (Negative) mg/dL Urine Ketones (Negative) mg/dL Urine Blood (Negative) Urine Nitrite (Negative) Ur Leukocyte Esterase (Negative) Urine RBC (0-2) /HPF Urine WBC (0-5) /HPF Ur Squamous Epith Cells (0-2) /HPF Urine Bacteria (None Seen) Hyaline Casts (0-2) /LPF Urine Osmolality (373-1093) mosm/kg Ur Random Sodium mmol/L Urine Opiates Screen (Not Detect) Ur Buprenorphine Scrn (Not Detect) ng/mL Ur Oxycodone Screen (Not Detect) ng/mL Urine Methadone Screen (Not Detect) ng/mL Urine Fentanyl Screen (Not Detect) Ur Barbiturates Screen (Not Detect) Ur Phencyclidine Scrn (Not Detect) Ur Amphetamines Screen (Not Detect) U Benzodiazepines Scrn (Not Detect) Urine Cocaine Screen (Not Detect) U Marijuana (THC) Screen (Not Detect) COVID-19 (KILEY) Negative (Negative) COVID-19 Clin Com See Note Influenza Type A (PRINCESS) Negative (Negative) Influenza Type B (PRINCESS) Negative (Negative) Influenza A & B Note See Note Independent Interpretation I performed an independent interpretation of an: EKG and CT Scan Interpretation: CT head/brain without intracranial bleed, no skull fracture CT cervical spine without fracture EKG showing normal sinus rhythm, rate of 80 beats per minute, QT 372, QTC 429 Radiology Impression Discussion of test interpretation with radiology: I have reviewed the radiologist's reading. Radiologist Impression: Reason for Exam: MULTIPLE FALLS HEAD STRIKE CLINICAL HISTORY: MULTIPLE FALLS HEAD STRIKE CT head without contrast Comparison: CT/SR - CT HEAD/BRAIN WO IV CON - 12/25/24 22:20 EDT Findings: No intra-axial mass, midline shift, hydrocephalus, or acute hemorrhage. Moderate cerebral atrophy. Mild heterogeneous low attenuation in the periventricular white matter. The visualized paranasal sinuses and mastoid air cells are normal. The orbits are within normal limits. No skull fracture. Left frontal small subcutaneous cephalohematoma. Near-complete opacification of the left sphenoid sinus. IMPRESSION: 1. No acute intracranial findings. 2. Moderate cerebral atrophy. 3. Mild chronic periventricular microvascular disease. 4. Left sphenoid sinus disease. This document has been electronically signed by: Andrei Taylor MD on 02/14/2025 13:28:02 Reason for Exam: FALLS W HEAD STRIKE CLINICAL HISTORY: FALLS W HEAD STRIKE CT cervical spine without contrast Comparison: CT/SR - CT CERVICAL SPINE WO IV CON - 12/25/24 22:20 EDT Findings: C4-5: Grade 1 anterolisthesis C4 over C5. Mild anterior spurring. Moderate bilateral spondylitic neural foraminal stenosis. C5-6: Moderate to severe DJD. Moderate anterior bridging syndesmophyte. Mild left and no significant right spondylitic neural foraminal stenosis. C6-7: Moderate to severe DJD with moderate anterior bridging syndesmophyte. Mild right and moderate left spondylitic neural foraminal stenosis. Mild osteopenia. No acute findings on limited view of the intracranial contents. No cervical fluid collections or masses. No consolidation or effusion at the lung apices. Re-identified shallow cleft left of midline at the base of the odontoid, coronal image 25 of 65; anatomic variant, stable. C3-4: Mild anterior spurring. C7-T1: Moderate DJD. Moderate anterior spurring. IMPRESSION: 1. No acute cervical spine findings. 2. Grade 1 anterolisthesis C4 over C5. 3. Moderate to severe degenerative changes at C5-6 and C6-7 with associated neural foraminal stenosis. 4. Moderate bilateral neural foraminal stenosis at C4-5. This document has been electronically signed by: Andrei Taylor MD on 02/14/2025 13:25:13 Independent Historian Clinical information obtained from an independent historian. History obtained from or confirmed by: EMS External Record Review External record reviewed: Inpatient record and Outpatient record Chronic Conditions Patient?s care impacted by: Other (dementia, schizophrenia) Social Determinants Patient?s care significantly limited by Social Determinants of Health including: Other Social Determinant of Health Critical Care Time Critical Care Time Critical Care Time: Yes Total Critical Care Time: 45 Attestation: I have personally provided critical care time exclusive of time spent on separately billable procedures. Time includes review of lab data, radiology results, discussion with consultants, and monitoring for potential decompensation. Intervention performed as documented. Discharge Plan Discharge Clinical Impression: Fall, Intentional self-harm, Pneumonia, Hypoxia Patient Disposition: Admitted As Inpatient Additional Instructions: Santy's work up today is reassuring. Labs revealed that he is dehydrated. He was given IV hydration in ED today with improvement. His urine does not demonstrate infection. The CT scans of his head/neck do not reveal any fractures or intracranial bleed. He does have a small hematoma noted to his scalp with an overlying laceration that was repaired with 5 kirsten. The kirsten need to come out in 3-5 days. This can be done by any provider at your facility or he can return to the ED to have these removed. Return with any new or worsening symptoms. In the case of an emergency call 911. Print Language: Thai
[2025-02-14 10:10] LABS: Alanine Aminotransferase 17 U/L (0-40); Albumin Level 4.2 g/dL (3.5-5.0); Alkaline Phosphatase 105 U/L (39-117); Anion Gap 23 (12-20); Aspartate Amino Transferase 35 U/L (5-37); Blood Urea Nitrogen 9 mg/dL (9-16); Calcium 10.2 mg/dL (8.4-10.2); Carbon Dioxide 24 mmol/L (22-29); Chloride 107 mmol/L (96-108); Creatinine Clr Calc Pharmacy 89.3; Estimated Glomerular Filt Rate > 60; Potassium 4.8 mmol/L (3.3-5.1); Sodium 149 mmol/L (135-145); Total Protein 7.6 g/dL (6.5-8.0)
--- NOTE | 2025-02-14 10:10 | PC.NURSE ---
Patient made multiple attempts to crawl over bed rail Sitter was put in place Patient still attempted to crawl over rail. Patient unredirectable Notified provider ADELAIDA gonsalez ordered
[2025-02-14 10:13] LABS: Troponin-I High Sensitivity 8.1 ng/L (<3.5-35.0)
[2025-02-14] MEDS: OLANZapine 10 MG VIAL 5 MG IM ×2 (10:32→11:37)
[2025-02-14] MEDS: diazePAM 10 MG/2 ML CARTRIDGE 5 MG IM (13:42)
[2025-02-14] MEDS: Lactated Ringers 1,000 ML 999 ML IV (13:43)
[2025-02-14 15:28] LABS: Osmolality, Serum 302 mosm/kg (281-305)
[2025-02-14 16:29] LABS: Appearance Urine Clear; Glucose Urine UA 250 mg/dL (Negative); PH 7.5 (5.0-9.0); Specific Gravity - Urine 1.020 (1.005-1.025); UMIC TRIGGER UACC YES
[2025-02-14 16:43] LABS: Anion Gap 15 (12-20); Blood Urea Nitrogen 8 mg/dL (9-16); Calcium 9.2 mg/dL (8.4-10.2); Carbon Dioxide 23 mmol/L (22-29); Chloride 109 mmol/L (96-108); Creatinine Clr Calc Pharmacy 115.5; Estimated Glomerular Filt Rate > 60; Potassium 4.0 mmol/L (3.3-5.1); Sodium 143 mmol/L (135-145)
--- NOTE | 2025-02-14 17:28 | PC.NURSE ---
Attempted to give report to [facility] for discharge. Nurse stated He is sectioned and can not return to facility Requested section form and [facility], fax number provided
--- NOTE | 2025-02-14 19:18 | MHC.EDTECH ---
called to request [facility] be faxed
--- NOTE | 2025-02-14 19:32 | MHC.CARE ---
CARE Team met with Pt who is unable to fully engage in a assessment, presumably due to Pt's prior dx of Dementia and Schizophrenia. Speech is mostly non-sensical and not oriented to the situation. Pt unable to answer questions regarding SI/HI/AVH. Pt is observed with a bandage on his head, neck covered in dried blood. He is visibly shaking and is irritable. Pt seems that he would benefit from [facility]PL[facility] at this time given his self-harm bx, however psychiatry will be consulted for official disposition and medication management. [facility] staff have been updated. ED provider is aware. Section 12A signed by Cuco Ledezma DO in Pt's chart. CARE Team to follow-up on this case tomorrow.
[2025-02-15] VITALS (7 sets, daily range): BP systolic 129–152; BP diastolic 69–82; PULSE 64–82; RESP 12–16; TEMP 36.2–37.1; O2SAT 96–99
--- NOTE | 2025-02-15 13:52 | PHA.MEDREC ---
Pharmacy Consult ? Medication Reconciliation Pharmacy has completed the medication reconciliation. Confirmed medication reconciliation with list from [facility].
--- NOTE | 2025-02-15 16:39 | PC.NURSE ---
Assumed care of patient approx. 0700, resting comfortably in bed with resp even/unlabored. A/O x 1, pt with disorganized thoughts and rambling speech. Incontinent of urine, hygiene care and linen changed provided. VS stable. Pt with dressing CDI to forehead
--- NOTE | 2025-02-15 23:01 | P.CNPS_ITS ---
History of Present Illness Date of Service: 02/15/25 at 1230 Chief Complaint: multiple falls, lac to head Reason for Consult: Medication managment Requesting physician: Aj Aguillon Discussed with referring provider: Yes (Case discuss with Dr. Zabala ) Sources of Information: patient interviewed, chart reviewed and crisis/core team assessment reviewed HPI Narrative: Patient is a 69 y.o [place] speaking male from [facility] who brought to [facility] ED due to fall Intentional and self-harm. This provider met with patient in ED18 on 02/15/25 at 1230 where he is assigned to. Continue to express SI and hallucinations all the time . When asked what the voices telling him he states They call me JAF . Patient also reports suicidal thoughts everyday. 25/12 and when asked if he has staff observed him at , he states he is on constant surveillance Patient states I want to donate money to [facility] or to [facility] or to [facility]:. When asked why that he wants to give up his money, he can not give the answer. As if he admitted to any psychiatric, hospital before he stated undetected . The sitter who assigned to be with patient reports that earlier today he tried to wrap the cord near his head to his neck and ask the sitter to do it for him as well as suicidal gestures. Santy's work up on 02/14/25: Labs revealed that he is dehydrated. He was given IV hydration in ED today with improvement. His urine does not demonstrate infection. The CT scans of his head/neck do not reveal any fractures or intracranial bleed. He does have a small hematoma noted to his scalp with an overlying laceration that was repaired with 5 kirsten. The kirsten need to come out in 3-5 days. This can be done by any provider at your facility or he can return to the ED to have these removed. Per care team note: Care team staff spoke with Pt's RN Cuco at [facility] who reported that Pt was sent to [facility] ED due to expressing SI and HI; no intent or plan was reported. Cuco reported that Pt put his hands in a railing which required vaseline to get Pt's hands out of. Past Psychiatric History: Not able to obtain due to current mental status Deferred to medical team Personal & Social History: Not discussed [facility] Narrative: Not able to obtain Narrative: Deferred to medical team Family History: Not able to obtain due to current mental status Social History: report he is single, never and has no children Substance History: Not able to obtain due to current mental status Trauma History: Not able to obtain due to current mental status Diagnostics Vital Signs (24Hr): Vital Signs - 24 hr 02/15/25 01:46 02/15/25 04:25 02/15/25 09:36 Temperature 97.9 F 98.8 F Pulse Rate 69 82 65 Respiratory Rate 12 12 12 Blood Pressure 152/71 H 147/78 H 137/70 Pulse Oximetry 99 98 98 Oxygen Delivery Method Room Air Room Air Room Air 02/15/25 13:57 02/15/25 18:51 02/15/25 22:22 Temperature 98.5 F 97.1 F 98.2 F Pulse Rate 71 64 70 Respiratory Rate 16 14 16 Blood Pressure 146/77 H 136/69 129/73 Pulse Oximetry 98 97 96 Oxygen Delivery Method Room Air Room Air BMI result Body Mass Index 23.2 Labs 02/14/25 09:47 02/14/25 16:22 Labs: Laboratory Results - last 48 hr 02/14/25 02/14/25 02/14/25 09:47 15:08 16:22 WBC 8.9 RBC 4.79 Hgb 14.6 Hct 44.9 MCV 93.7 MCH 30.5 MCHC 32.5 RDW 14.0 Plt Count 224 D MPV 8.9 L Immature Gran % (Auto) 0.6 H Neut % (Auto) 75.5 H Lymph % (Auto) 15.2 L Mccone % (Auto) 8.1 Eos % (Auto) 0.3 Baso % (Auto) 0.3 Lymph # (Auto) 1.4 Mccone # (Auto) 0.7 Eos # (Auto) 0.0 Baso # (Auto) 0.0 Abs Immat Gran (auto) 0.05 H Absolute Neuts (auto) 6.7 Absolute Nucleated RBC 0.000 Nucleated RBC % (auto) 0.0 Sodium 149 H 143 Potassium 4.8 4.0 Chloride 107 109 H Carbon Dioxide 24 23 Anion Gap 23 H 15 BUN 9 8 L Creatinine 0.75 0.58 Estim Creat Clear Calc 89.3 115.5 Estimated GFR > 60 > 60 Random Glucose 157 H 111 Osmolality 302 Calcium 10.2 D 9.2 D Total Bilirubin 0.5 AST 35 ALT 17 Alkaline Phosphatase 105 Troponin I High Sens 8.1 Total Protein 7.6 Albumin 4.2 Urine Color Yellow Urine Appearance Clear Urine pH 7.5 Ur Specific [place] 1.020 Urine Protein 30 (1+) H Urine Glucose (UA) 250 H Urine Ketones 40 Urine Blood Negative Urine Nitrite Negative Ur Leukocyte Esterase Negative Urine RBC 0-2 Urine WBC 0-5 Ur Squamous Epith Cells 0-2 Urine Bacteria None Seen Hyaline Casts 0-2 Urine Osmolality 684 Ur Random Sodium 197.0 Mental Status Exam Mental Status Exam Narrative: Patient is lying in bed, wearing hospital appetite, having a sitter due to safety concerns. Thought content is disorganized, slow to respond. Observe white big bandage over the forehead which he has stitches on. Thought content is with suicidal thoughts, and reports hearing voices. Mood is depressed anxious and irritable, avoid eye contact. Poor insight and impaired judgment/ Medications Medications Current Medications Clozapine (Clozapine 100 Mg Tablet) 300 mg PO TID [facility] Diazepam (Diazepam 2 Mg Tablet) 3 mg PO BID [facility] Last Admin: 02/15/25 22:43 Dose: 3 mg Divalproex Sodium (Divalproex Sodium 500 Mg Tablet.) 500 mg PO BID [facility] Last Admin: 02/15/25 22:44 Dose: 500 mg Docusate Sodium (Docusate Sodium 100 Mg Capsule) 100 mg PO BID [facility] Fluoxetine HCl (Fluoxetine Hcl 20 Mg Capsule) 40 mg PO BEDTIME [facility] Glucagon (Glucagon Hcl 1 Mg Vial) 1 mg IM Q20M PRN PRN Reason: low BG Insulin Glargine (Insulin Glargine,Hum.Rec.Anlog 100 Unit/Ml 10 Ml Vial) 24 unit SUBCUT DAILY [facility] Lorazepam (Lorazepam 1 Mg Tablet) 1 mg PO BID [facility] Metformin HCl (Metformin Hcl 1,000 Mg Tablet) 1,000 mg PO BID [facility] Metoprolol Tartrate (Metoprolol Tartrate 12.5 Mg Halftab) 12.5 mg PO BID [facility]; Protocol Non-Formulary Medication (Dulaglutide [Trulicity]) 3 mg SUBCUT QWEEK [facility] Omeprazole (Omeprazole 20 Mg Capsule.) 20 mg PO DAILY@0630 [facility] Perphenazine (Perphenazine 2 Mg Tablet) 2 mg PO BID [facility] Perphenazine (Perphenazine 4 Mg Tablet) 4 mg PO BID [facility] Senna (Sennosides 8.6 Mg Tablet) 8.6 mg PO DAILY NATE Sodium Biphosphate/Sodium Phosphate (Sodium Phosphate,Mccone-Dibasic 133 Ml Enema) 133 ml MN DAILY PRN PRN Reason: Constipation Allergies Allergies Allergy/AdvReac Type Severity Reaction Status Date / Time No Known Allergies Allergy Verified 02/14/25 08:42 Assessment & Plan Assessment & Plan (1) Fall: Status: Acute Code(s): W19.XXXA - Unspecified fall, initial encounter (2) Psychosis: Status: Acute Code(s): F29 - Unspecified psychosis not due to a substance or known physiological condition (3) Verbalizes suicidal thoughts: Status: Acute Code(s): R45.851 - Suicidal ideations Plan Patient is a 69 y.o [place] speaking male from [facility] who brought to [facility] ED due to fall Intentional and self-harm. This provider met with patient in ED18 on 02/15/25 at 1230 where he is assigned to. Continue to express SI and hallucinations all the time . When asked what the voices telling him he states They call me JAF . Patient also reports suicidal thoughts everyday. 25/12 and when asked if he has staff observed him at , he states he is on constant surveillance Patient states I want to donate money to [facility] or to [facility] or to [facility]:. When asked why that he wants to give up his money, he can not give the answer. As if he admitted to any psychiatric, hospital before he stated undetected . The sitter who assigned to be with patient reports that earlier today he tried to wrap the cord near his head to his neck and ask the sitter to do it for him as well as suicidal gestures. Collateral done in the ED with [facility] staff, Pt was sent to [facility] ED due to expressing SI and HI; no intent or plan was reported. Cuco reported that Pt put his hands in a railing which required vaseline to get Pt's hands out of. He is A+O states reason he is here because I am out of Fucking mind . He is not sure what exact behaviors he had prior to be brought in the ED. Engaged in assessment, but fairly disorganized, not irritable to to this provider, appeared to have some underlying irritability. Reported he has can not feel himself when asked if he depressed. Reports high anxiety level. He knows his date of and year , but not oriented to time date or day but year, he knows he is in the hospital, but do not know which hospital he is at. Continue expressing SI with hallucinations, unsafe behavior, irritable, increase in depression anxiety. Patient meets inpatient level of care admission criteria. Case discussed with care team and discussed with Dr. Patrick Zabala. Patient can resume home medications. Dr. Nguyen will have nursing to complete med rec. Continue to have a sitter for safety Total time managing care of this patient today ____ minutes. Patient educated on: other (Not able to provide education due to current mental status) Informed Consent: further education needed
[2025-02-15] MEDS: Metoprolol Tartrate 12.5 MG HALFTAB PO (23:18)
--- NOTE | 2025-02-15 23:24 | PC.NURSE ---
tolerated well pills in applesauce
[2025-02-16] VITALS (8 sets, daily range): BP systolic 122–140; BP diastolic 61–80; PULSE 72–94; RESP 15–25; TEMP 35.9–36.6; O2SAT 2–98
--- NOTE | 2025-02-16 09:30 | PC.NURSE ---
Assumed care of pt at 0700. Pt resting quietly in bed with eyes closed, respirations even and unlabored, no increased wob/sob noted, maintaining O2 sat >92% on RA, no distress noted. 1:1 sitter at bedside d/t pt attempting to get out of bed throughout the night. This RN attempted to wake pt for assessment/morning meds. Pt opened eyes to this RN then returned to sleeping. Vitals updated in worklist. Will reattempt morning medications when pt is alert and able to swallow pills safely.
--- NOTE | 2025-02-16 12:11 | PC.NURSE ---
This RN attempted to wake pt up for morning medications multiple times. Pt unable to stay awake and safely swallow PO medications- charted not given in MAR, provider aware. POC checked- 91. Pt continues to rest with eyes closed, appears in no distress, respirations even and unlabored. 1:1 sitter remains at bedside. Call denny within reach, all needs met at this time.
[2025-02-16 12:12] LABS: Glucose, Whole Blood 91 mg/dL (60-115)
[2025-02-16 14:18] LABS: Glucose, Whole Blood 93 mg/dL (60-115)
[2025-02-16 15:07] LABS: MANUAL DIFF FLAG NO
[2025-02-16 15:14] LABS: Hematocrit 49.1 % (42.0-52.0); Hemoglobin 16.4 g/dl (14.0-18.0); Imm Gran Abs Auto 0.02 X10*3/uL (0.00-0.03); Imm Gran Pct Auto 0.3 % (0.0-0.4); Lymphocytes Absolute Auto 2.4 X10*3/uL (1.2-4.9); Mean Corpuscular HGB Conc 33.4 g/dl (31.0-36.0); Mean Corpuscular Hemoglobin 30.5 pg (27.0-33.0); Mean Corpuscular Volume 91.4 fL (80.0-98.0); NRBC Abs Auto 0.000 X10*3/uL (0.0-0.012); NRBC Pct Auto 0.0 /100WBC (0.0-0.2); Platelet Count 197 X10*3/uL (160-400); Red Blood Count 5.37 X10*6/uL (4.60-5.80); White Blood Count 6.9 X10*3/uL (4.8-10.8)
[2025-02-16 15:17] LABS: Ammonia 22 umol/L (13-55)
[2025-02-16 15:24] LABS: Alanine Aminotransferase 17 U/L (0-40); Albumin Level 4.1 g/dL (3.5-5.0); Alkaline Phosphatase 116 U/L (39-117); Anion Gap 15 (12-20); Aspartate Amino Transferase 30 U/L (5-37); Blood Urea Nitrogen 17 mg/dL (9-16); Calcium 10.0 mg/dL (8.4-10.2); Carbon Dioxide 27 mmol/L (22-29); Chloride 105 mmol/L (96-108); Creatinine Clr Calc Pharmacy 77.9; Estimated Glomerular Filt Rate > 60; Potassium 4.4 mmol/L (3.3-5.1); Sodium 143 mmol/L (135-145); Total Protein 7.9 g/dL (6.5-8.0)
[2025-02-16 15:30] LABS: Appearance Urine Clear; Glucose Urine UA Negative (Negative); PH 5.5 (5.0-9.0); Specific Gravity - Urine 1.020 (1.005-1.025)
[2025-02-16 15:40] LABS: Cannabinoid Screen Urine Not Detected (Not Detect)
--- NOTE | 2025-02-16 15:59 | PC.NURSE ---
Pt remains unresponsive to verbal stimuli, not arousable by sternal rub. FAYE Matthews made aware and at bedside for assessment on pt. Urine sample obtained by straight cath, 400ml urine output. Repeat labs obtained and sent to lab. 22g IV placed L hand and 20g IV placed L forearm- patent, asymptomatic. Repeat POC 93 @ 1403. While line maintenance supervisor and this RN at bedside, pt became hypoxic. Desat to 83% on RA, unable to be aroused during. Placed on 2L O2 with good effect- O2 sat >92%. No increased wob/sob noted, productive cough heard with crackles on auscultation. Call denny within reach, all needs met at this time.
[2025-02-16 16:38] LABS: Venous Blood Gas Refer to POC result
[2025-02-16 16:39] LABS: VBG HCO3 25 mmol/L (22-26); VBG O2 % Saturation 82.0 %
[2025-02-16 16:44] LABS: Ammonia 23 umol/L (13-55)
[2025-02-16 17:01] LABS: COVID-19 Test Negative (Negative); IDNOW Serial# 08D9AD1C; IDNOW Serial# 58CA691E; Influenza B2 Negative (Negative)
[2025-02-16] MEDS: iohexoL 350 MG/ML 100 ML INFUS..BTL IV (17:30)
--- NOTE | 2025-02-16 18:34 | PM.IMHP ---
History of Present Illness Date of Service: 02/16/25 Chief Complaint: hypoxia 69M PMH schizoaffective disorder with psychotic features, major depressive disorder, diabetes, GERD presented to the ED on 02/14/2025 for multiple falls. Plan was for admission to Geriatric Psychiatry as patient was actively agitated and signs of psychosis, however on 02/16/2025 patient noted to be more drowsy and hypoxic, 83% on room air. CT chest showed prominent amount of secretions in the airways greatest in left lower lobe with bronchial wall thickening. Patient himself unable to provide history. Review of Systems Review of Systems: Yes all other systems are reviewed and are negative [facility] Medical History (Updated 02/16/25 @ 18:37 by Arturo Arteaga MD) Schizoaffective disorder Meds Allergies Allergy/AdvReac Type Severity Reaction Status Date / Time No Known Allergies Allergy Verified 02/14/25 08:42 Active Medications: Current Medications Acetaminophen (Acetaminophen 325 Mg Tablet) 650 mg PO Q6H PRN PRN Reason: Headache/Pain, Scale 1-10 Acetaminophen (Acetaminophen 325 Mg Tablet) 650 mg PO Q6H PRN PRN Reason: Pain, Mild 1-3,fever,headache Al Hydroxide/Mg Hydroxide (Magnesium Hydrox/Alum Hydrox 30 Ml Oral.Susp) 30 ml PO Q6H PRN PRN Reason: Heartburn/Nausea Calcium Carbonate (Calcium Carbonate 750 Mg Tab.Chew) 750 mg PO Q4H PRN PRN Reason: Heartburn Clozapine (Clozapine 100 Mg Tablet) 300 mg PO TID [facility] Last Admin: 02/16/25 17:32 Dose: Not Given Dextrose (Dextrose 50 % 25 Gm/50 Ml Syringe) 25 gm IVPUSH Q15M PRN; Protocol PRN Reason: per Hypoglycemia Standing Ord. Divalproex Sodium (Divalproex Sodium 500 Mg Tablet.Dr) 500 mg PO BID [facility] Last Admin: 02/16/25 11:58 Dose: Not Given Docusate Sodium (Docusate Sodium 100 Mg Capsule) 100 mg PO BID [facility] Last Admin: 02/16/25 11:58 Dose: Not Given Enoxaparin Sodium (Enoxaparin Sodium 40 Mg/0.4 Ml Syringe) 40 mg SUBCUT Q24H [facility] Fluoxetine HCl (Fluoxetine Hcl 20 Mg Capsule) 40 mg PO BEDTIME [facility] Last Admin: 02/15/25 23:18 Dose: 40 mg Glucagon (Glucagon Hcl 1 Mg Vial) 1 mg IM Q20M PRN PRN Reason: low BG Glucose (Glucose Gel 15 Gm Gel..Gram.) 15 gm PO Q15M PRN; Protocol PRN Reason: per Hypoglycemia Standing Ord. Ampicillin Sodium/Sulbactam (Sodium 1.5 gm/ Sodium Chloride) 100 mls @ 200 mls/hr IV Q6H [facility] Insulin Glargine (Insulin Glargine,Hum.Rec.Anlog 100 Unit/Ml 10 Ml Vial) 24 unit SUBCUT DAILY [facility] Last Admin: 02/16/25 12:17 Dose: Not Given Insulin Human Lispro (Insulin Lispro 100 Unit/Ml 3 Ml Vial) 0 unit SUBCUT QIDACHS [facility]; Protocol Magnesium Hydroxide (Milk Of Magnesia 30 Ml Oral.Susp) 30 ml PO DAILY PRN PRN Reason: Constipation Magnesium Hydroxide (Milk Of Magnesia 30 Ml Oral.Susp) 30 ml PO DAILY PRN PRN Reason: Constipation Melatonin (Melatonin 3 Mg Tablet) 6 mg PO BEDTIME PRN PRN Reason: Insomnia Metoprolol Tartrate (Metoprolol Tartrate 12.5 Mg Halftab) 12.5 mg PO BID [facility]; Protocol Last Admin: 02/16/25 11:58 Dose: Not Given Non-Formulary Medication (Dulaglutide [Trulicity]) 3 mg SUBCUT Q7D [facility] Omeprazole (Omeprazole 20 Mg Capsule.Dr) 20 mg PO DAILY@0630 [facility] Last Admin: 02/16/25 11:58 Dose: Not Given Perphenazine (Perphenazine 2 Mg Tablet) 2 mg PO BID [facility] Last Admin: 02/16/25 11:58 Dose: Not Given Perphenazine (Perphenazine 4 Mg Tablet) 4 mg PO BID [facility] Last Admin: 02/16/25 11:58 Dose: Not Given Senna (Sennosides 8.6 Mg Tablet) 8.6 mg PO DAILY [facility] Last Admin: 02/16/25 11:59 Dose: Not Given Sodium Biphosphate/Sodium Phosphate (Sodium Phosphate,[place]-Dibasic 133 Ml Enema) 133 ml [place] DAILY PRN PRN Reason: Constipation Sodium Chloride (0.9 % Sodium Chloride Flush 3 Ml Syringe) 3 ml IVFLUSH QSHIFT [facility] Trazodone HCl (Trazodone Hcl 50 Mg Tablet) 50 mg PO BEDTIME MRX1 PRN PRN Reason: Insomnia Home Medications ?Medication ?Instructions ?Recorded ?Confirmed ?Last Taken ?Type clozapine 100 mg tablet 300 mg PO TID 02/15/25 02/15/25 02/13/25 History diazepam 2 mg tablet (Valium) 3 mg PO BID 02/15/25 02/15/25 Unknown History divalproex 500 mg tablet,delayed 500 mg PO BID 02/15/25 02/15/25 Unknown History release docusate sodium 100 mg capsule 100 mg PO BID 02/15/25 02/15/25 Unknown History (Colace) dulaglutide 3 mg/0.5 mL 3 mg subcut QWEEK 02/15/25 02/15/25 Unknown History subcutaneous pen injector (Trulicity) fluoxetine 40 mg capsule 40 mg PO QPM 02/15/25 02/15/25 Unknown History glucagon 1 mg/0.2 mL subcutaneous 1 mg subcut Q20M PRN low BG 02/15/25 02/15/25 Unknown History solution insulin glargine 100 unit/mL (3 24 unit subcut QAM 02/15/25 02/15/25 Unknown History mL) subcutaneous pen (Lantus Solostar U-100 Insulin) lorazepam 1 mg tablet 1 mg PO BID 02/15/25 02/15/25 Unknown History metformin 1,000 mg tablet 1,000 mg PO BID 02/15/25 02/15/25 Unknown History metoprolol tartrate 25 mg tablet 12.5 mg PO BID 02/15/25 02/15/25 Unknown History pantoprazole 40 mg tablet,delayed 40 mg PO DAILY 02/15/25 02/15/25 Unknown History release perphenazine 2 mg tablet 2 mg PO BID 02/15/25 02/15/25 Unknown History perphenazine 4 mg tablet 4 mg PO BID 02/15/25 02/15/25 Unknown History sennosides 8.6 mg tablet (senna) 8.6 mg PO DAILY 02/15/25 02/15/25 Unknown History sodium phosphates 19 gram-7 118 ml [place] DAILY PRN Constipation 02/15/25 02/15/25 Unknown History gram/118 mL enema (Fleet Enema) Physical Exam Vital Signs and Narrative: Vital Signs: Last Vital Signs Temp 96.7 F L 02/16/25 14:59 Pulse 94 02/16/25 14:59 Resp 25 H 02/16/25 16:00 BP 122/61 02/16/25 15:22 Pulse Ox 94 02/16/25 16:01 O2 Del Method Nasal Cannula 02/16/25 16:01 O2 Flow Rate 2 02/16/25 16:01 BMI result Body Mass Index 23.2 lethargic oriented to person only, bilateral rhonchi, mild accessory muscle used, ill-appearing Results Labs 02/16/25 15:00 02/16/25 15:00 Labs: Laboratory Results - last 24 hr 02/16/25 02/16/25 02/16/25 12:08 14:03 15:00 MCV 91.4 MCH 30.5 MCHC 33.4 RDW 14.1 Plt Count 197 MPV 8.9 L Immature Gran % (Auto) 0.3 Neut % (Auto) 56.8 Lymph % (Auto) 33.9 [place] % (Auto) 6.2 Eos % (Auto) 2.2 Baso % (Auto) 0.6 Lymph # (Auto) 2.4 [place] # (Auto) 0.4 Eos # (Auto) 0.2 Baso # (Auto) 0.0 Abs Immat Gran (auto) 0.02 Absolute Neuts (auto) 3.9 Absolute Nucleated RBC 0.000 Nucleated RBC % (auto) 0.0 VBG pH VBG pCO2 VBG pO2 VBG HCO3 VBG O2 Saturation VBG Base Excess Anion Gap 15 Estim Creat Clear Calc 77.9 Estimated GFR > 60 POC Glucose 91 93 Random Glucose 104 Lactic Acid Calcium 10.0 D Total Bilirubin 0.5 AST 30 ALT 17 Alkaline Phosphatase 116 Ammonia 22 Total Protein 7.9 Albumin 4.1 Urine Color Urine Appearance Urine pH Ur Specific [place] Urine Protein Urine Glucose (UA) Urine Ketones Urine Blood Urine Nitrite Ur Leukocyte Esterase Urine Opiates Screen Ur Buprenorphine Scrn Ur Oxycodone Screen Urine Methadone Screen Urine Fentanyl Screen Ur Barbiturates Screen Ur Phencyclidine Scrn Ur Amphetamines Screen U Benzodiazepines Scrn Urine Cocaine Screen U Marijuana (THC) Screen COVID-19 (KILEY) COVID-19 Clin Com Influenza Type A (PRINCESS) Influenza Type B (PRINCESS) Influenza A & B Note 02/16/25 02/16/25 02/16/25 15:24 16:28 16:35 MCV MCH MCHC RDW Plt Count MPV Immature Gran % (Auto) Neut % (Auto) Lymph % (Auto) [place] % (Auto) Eos % (Auto) Baso % (Auto) Lymph # (Auto) [place] # (Auto) Eos # (Auto) Baso # (Auto) Abs Immat Gran (auto) Absolute Neuts (auto) Absolute Nucleated RBC Nucleated RBC % (auto) VBG pH 7.41 VBG pCO2 40 VBG pO2 54 VBG HCO3 25 VBG O2 Saturation 82.0 VBG Base Excess 1.0 Anion Gap Estim Creat Clear Calc Estimated GFR POC Glucose Random Glucose Lactic Acid 1.9 Calcium Total Bilirubin AST ALT Alkaline Phosphatase Ammonia 23 Total Protein Albumin Urine Color Yellow Urine Appearance Clear Urine pH 5.5 Ur Specific [place] 1.020 Urine Protein Negative Urine Glucose (UA) Negative Urine Ketones 15 Urine Blood Negative Urine Nitrite Negative Ur Leukocyte Esterase Negative Urine Opiates Screen Not Detected Ur Buprenorphine Scrn Not Detected Ur Oxycodone Screen Not Detected Urine Methadone Screen Not Detected Urine Fentanyl Screen Not Detected Ur Barbiturates Screen Not Detected Ur Phencyclidine Scrn Not Detected Ur Amphetamines Screen Not Detected U Benzodiazepines Scrn POSITIVE H Urine Cocaine Screen Not Detected U Marijuana (THC) Screen Not Detected COVID-19 (KILEY) COVID-19 Clin Com Influenza Type A (PRINCESS) Influenza Type B (PRINCESS) Influenza A & B Note 02/16/25 16:41 MCV MCH MCHC RDW Plt Count MPV Immature Gran % (Auto) Neut % (Auto) Lymph % (Auto) [place] % (Auto) Eos % (Auto) Baso % (Auto) Lymph # (Auto) [place] # (Auto) Eos # (Auto) Baso # (Auto) Abs Immat Gran (auto) Absolute Neuts (auto) Absolute Nucleated RBC Nucleated RBC % (auto) VBG pH VBG pCO2 VBG pO2 VBG HCO3 VBG O2 Saturation VBG Base Excess Anion Gap Estim Creat Clear Calc Estimated GFR POC Glucose Random Glucose Lactic Acid Calcium Total Bilirubin AST ALT Alkaline Phosphatase Ammonia Total Protein Albumin Urine Color Urine Appearance Urine pH Ur Specific [place] Urine Protein Urine Glucose (UA) Urine Ketones Urine Blood Urine Nitrite Ur Leukocyte Esterase Urine Opiates Screen Ur Buprenorphine Scrn Ur Oxycodone Screen Urine Methadone Screen Urine Fentanyl Screen Ur Barbiturates Screen Ur Phencyclidine Scrn Ur Amphetamines Screen U Benzodiazepines Scrn Urine Cocaine Screen U Marijuana (THC) Screen COVID-19 (KILEY) Negative COVID-19 Clin Com See Note Influenza Type A (PRINCESS) Negative Influenza Type B (PRINCESS) Negative Influenza A & B Note See Note Imaging Radiologist's Impressions: Impressions Chest X-Ray 02/16/25 15:27 IMPRESSION: Left basilar atelectasis, pneumonia not excluded Electronically signed by: Nick Montana MD 02/16/2025 03:39 PM EDT RP Assessment and Plan (1) Psychosis: Status: Acute Plan 69M PMH schizoaffective disorder with psychotic features, major depressive disorder, diabetes, GERD presented to the ED on 02/14/2025 for multiple falls. became hypoxic on 02/16/25 Acute hypoxic respiratory failure due to aspiration pneumonia Speech eval, IV Unasyn, follow up cultures, wean O2 as tolerated, aspiration precautions Schizoaffective disorder with psychotic features Continued Depakote, Trilafon, psych/care team prior to discharge Diabetes Basal bolus insulin DVT prophylaxis with Lovenox Full Code Quality Stroke Does the patient have a stroke diagnosis?: No VTE Prior VTE?: No VTE Risk Level:: Medical - moderate - high VTE Device Contraindication: Treatment Not Indicated VTE Drug Contraindication: N/A - Med Ordered
[2025-02-16] MEDS: Ampicillin Sodium/Sulbactam Na 1.5 GM in 0.9 % Sodium Chloride 100 ML IV (20:38)
[2025-02-16 23:02] LABS: Glucose, Whole Blood 96 mg/dL (60-115)
[2025-02-17] VITALS (7 sets, daily range): BP systolic 130–171; BP diastolic 63–85; PULSE 80–110; RESP 16–20; TEMP 36–36.9; O2SAT 89–100; BMI 23.3
[2025-02-17] MEDS: Ampicillin Sodium/Sulbactam Na 1.5 GM in 0.9 % Sodium Chloride 100 ML IV ×4 (01:53→18:09)
[2025-02-17] MEDS: 0.9 % Sodium Chloride Flush 3 ML SYRINGE IVFLUSH ×3 (01:55→16:11)
[2025-02-17 05:08] LABS: Hematocrit 41.3 % (42.0-52.0); Hemoglobin 13.6 g/dl (14.0-18.0); Mean Corpuscular HGB Conc 32.9 g/dl (31.0-36.0); Mean Corpuscular Hemoglobin 30.2 pg (27.0-33.0); Mean Corpuscular Volume 91.6 fL (80.0-98.0); NRBC Abs Auto 0.000 X10*3/uL (0.0-0.012); NRBC Pct Auto 0.0 /100WBC (0.0-0.2); Platelet Count 166 X10*3/uL (160-400); Red Blood Count 4.51 X10*6/uL (4.60-5.80); White Blood Count 6.5 X10*3/uL (4.8-10.8)
[2025-02-17 05:26] LABS: Anion Gap 13 (12-20); Blood Urea Nitrogen 14 mg/dL (9-16); Calcium 8.9 mg/dL (8.4-10.2); Carbon Dioxide 24 mmol/L (22-29); Chloride 112 mmol/L (96-108); Creatinine Clr Calc Pharmacy 104.7; Estimated Glomerular Filt Rate > 60; Potassium 3.9 mmol/L (3.3-5.1); Sodium 145 mmol/L (135-145)
--- NOTE | 2025-02-17 06:37 | MHC.EDTECH ---
Assisted pt with perineal care. Fresh sheets putted in, male purewick placed. Pt is resting comfortable in bed.
[2025-02-17 07:14] LABS: Glucose, Whole Blood 97 mg/dL (60-115)
--- NOTE | 2025-02-17 07:22 | PC.NURSE ---
Pt is alert/confused speech. Breathing easy without any diff breathing while at rest. Sat 96-97% on 2 lpm via nc. No cough. NSR on tele. NPO pending speech eval. Pt unable to tolerate all attempts by nursing PO and at times needed oral suctioning. Unasyn started as ordered. 1:1 pt observer at bedside for safety. 5 kirsten to left forehead region in place.
[2025-02-17 08:25] LABS: Hemoglobin A1C 149.6776 umol/L; Total Hemoglobin (HGBA1C) 3615.8218 umol/L
--- NOTE | 2025-02-17 08:26 | P.PNIM_ITS ---
Subjective Subjective Date of Service: 02/17/25 Interval History: non participatory Physical Exam 2 Exam: Exam: continues to be more lethargic than on initial presentation, no outbursts reported non particpatory with exam, but does respond bilateral rhonchi overall ill appearing Vital Signs: Vital Signs: Last Vital Signs Temp 96.8 F 02/17/25 01:18 Pulse 93 02/17/25 07:20 Resp 16 02/17/25 07:20 BP 139/69 02/17/25 07:20 Pulse Ox 96 02/17/25 07:20 O2 Del Method Nasal Cannula 02/17/25 07:20 O2 Flow Rate 2 02/17/25 07:20 BMI result Body Mass Index 23.2 Objective Data Active Medications Acetaminophen (Acetaminophen 325 Mg Tablet) 650 mg PO Q6H PRN PRN Reason: Headache/Pain, Scale 1-10 Acetaminophen (Acetaminophen 325 Mg Tablet) 650 mg PO Q6H PRN PRN Reason: Pain, Mild 1-3,fever,headache Al Hydroxide/Mg Hydroxide (Magnesium Hydrox/Alum Hydrox 30 Ml Oral.Susp) 30 ml PO Q6H PRN PRN Reason: Heartburn/Nausea Calcium Carbonate (Calcium Carbonate 750 Mg Tab.Chew) 750 mg PO Q4H PRN PRN Reason: Heartburn Clozapine (Clozapine 100 Mg Tablet) 300 mg PO TID [facility] Last Admin: 02/16/25 22:52 Dose: Not Given Documented By: GENE Non-Admin Reason: Patient Condition Contraindication Dextrose (Dextrose 50 % 25 Gm/50 Ml Syringe) 25 gm IVPUSH Q15M PRN; Protocol PRN Reason: per Hypoglycemia Standing Ord. Divalproex Sodium (Divalproex Sodium 500 Mg Tablet.Dr) 500 mg PO BID [facility] Last Admin: 02/16/25 22:52 Dose: Not Given Documented By: GENE Non-Admin Reason: Patient Condition Contraindication Docusate Sodium (Docusate Sodium 100 Mg Capsule) 100 mg PO BID [facility] Last Admin: 02/16/25 22:53 Dose: Not Given Documented By: GENE Non-Admin Reason: Patient Condition Contraindication Enoxaparin Sodium (Enoxaparin Sodium 40 Mg/0.4 Ml Syringe) 40 mg SUBCUT Q24H [facility] Fluoxetine HCl (Fluoxetine Hcl 20 Mg Capsule) 40 mg PO BEDTIME [facility] Last Admin: 02/16/25 22:54 Dose: Not Given Documented By: GENE Non-Admin Reason: Patient Condition Contraindication Glucagon (Glucagon Hcl 1 Mg Vial) 1 mg IM Q20M PRN PRN Reason: low BG Glucose (Glucose Gel 15 Gm Gel..Gram.) 15 gm PO Q15M PRN; Protocol PRN Reason: per Hypoglycemia Standing Ord. Ampicillin Sodium/Sulbactam (Sodium 1.5 gm/ Sodium Chloride) 100 mls @ 200 mls/hr IV Q6H [facility] Last Admin: 02/17/25 07:16 Dose: 200 mls/hr Documented By: NIYAH Insulin Glargine (Insulin Glargine,Hum.Rec.Anlog 100 Unit/Ml 10 Ml Vial) 24 unit SUBCUT DAILY [facility] Last Admin: 02/16/25 12:17 Dose: Not Given Documented By: ELVIRA Non-Admin Reason: See Note Insulin Human Lispro (Insulin Lispro 100 Unit/Ml 3 Ml Vial) 0 unit SUBCUT QIDACHS [facility]; Protocol Last Admin: 02/17/25 07:15 Dose: Not Given Documented By: NIYAH Non-Admin Reason: No Insulin Coverage Comments: POC 97 Magnesium Hydroxide (Milk Of Magnesia 30 Ml Oral.Susp) 30 ml PO DAILY PRN PRN Reason: Constipation Magnesium Hydroxide (Milk Of Magnesia 30 Ml Oral.Susp) 30 ml PO DAILY PRN PRN Reason: Constipation Melatonin (Melatonin 3 Mg Tablet) 6 mg PO BEDTIME PRN PRN Reason: Insomnia Metoprolol Tartrate (Metoprolol Tartrate 12.5 Mg Halftab) 12.5 mg PO BID [facility]; Protocol Last Admin: 02/16/25 22:54 Dose: Not Given Documented By: GENE Non-Admin Reason: Patient Condition Contraindication Non-Formulary Medication (Dulaglutide [Trulicity]) 3 mg SUBCUT Q7D [facility] Omeprazole (Omeprazole 20 Mg Capsule.Dr) 20 mg PO DAILY@0630 [facility] Last Admin: 02/17/25 07:15 Dose: Not Given Documented By: NIYAH Non-Admin Reason: npo pending speech eval Perphenazine (Perphenazine 2 Mg Tablet) 2 mg PO BID [facility] Last Admin: 02/16/25 22:54 Dose: Not Given Documented By: GENE Non-Admin Reason: Patient Condition Contraindication Perphenazine (Perphenazine 4 Mg Tablet) 4 mg PO BID [facility] Last Admin: 02/16/25 22:54 Dose: Not Given Documented By: GENE Non-Admin Reason: Patient Condition Contraindication Senna (Sennosides 8.6 Mg Tablet) 8.6 mg PO DAILY [facility] Last Admin: 02/16/25 11:59 Dose: Not Given Documented By: ELVIRA Non-Admin Reason: Patient Asleep Sodium Biphosphate/Sodium Phosphate (Sodium Phosphate,[place]-Dibasic 133 Ml Enema) 133 ml [place] DAILY PRN PRN Reason: Constipation Sodium Chloride (0.9 % Sodium Chloride Flush 3 Ml Syringe) 3 ml IVFLUSH QSHIFT [facility] Last Admin: 02/17/25 07:24 Dose: 3 ml Documented By: NIYAH Trazodone HCl (Trazodone Hcl 50 Mg Tablet) 50 mg PO BEDTIME MRX1 PRN PRN Reason: Insomnia Labs 02/17/25 04:55 02/17/25 04:55 Labs: Laboratory Results - last 24 hr 02/16/25 02/16/25 02/16/25 12:08 14:03 15:00 MCV 91.4 MCH 30.5 MCHC 33.4 RDW 14.1 Plt Count 197 MPV 8.9 L Immature Gran % (Auto) 0.3 Neut % (Auto) 56.8 Lymph % (Auto) 33.9 [place] % (Auto) 6.2 Eos % (Auto) 2.2 Baso % (Auto) 0.6 Lymph # (Auto) 2.4 [place] # (Auto) 0.4 Eos # (Auto) 0.2 Baso # (Auto) 0.0 Abs Immat Gran (auto) 0.02 Absolute Neuts (auto) 3.9 Absolute Nucleated RBC 0.000 Nucleated RBC % (auto) 0.0 VBG pH VBG pCO2 VBG pO2 VBG HCO3 VBG O2 Saturation VBG Base Excess Anion Gap 15 Estim Creat Clear Calc 77.9 Estimated GFR > 60 POC Glucose 91 93 Random Glucose 104 Estimat Average Glucose Hemoglobin A1c % Lactic Acid Calcium 10.0 D Total Bilirubin 0.5 AST 30 ALT 17 Alkaline Phosphatase 116 Ammonia 22 Total Protein 7.9 Albumin 4.1 Urine Color Urine Appearance Urine pH Ur Specific [place] Urine Protein Urine Glucose (UA) Urine Ketones Urine Blood Urine Nitrite Ur Leukocyte Esterase Urine Opiates Screen Ur Buprenorphine Scrn Ur Oxycodone Screen Urine Methadone Screen Urine Fentanyl Screen Ur Barbiturates Screen Ur Phencyclidine Scrn Ur Amphetamines Screen U Benzodiazepines Scrn Urine Cocaine Screen U Marijuana (THC) Screen COVID-19 (KILEY) COVID-19 Clin Com Influenza Type A (PRINCESS) Influenza Type B (PRINCESS) Influenza A & B Note 02/16/25 02/16/25 02/16/25 15:24 16:28 16:35 MCV MCH MCHC RDW Plt Count MPV Immature Gran % (Auto) Neut % (Auto) Lymph % (Auto) [place] % (Auto) Eos % (Auto) Baso % (Auto) Lymph # (Auto) [place] # (Auto) Eos # (Auto) Baso # (Auto) Abs Immat Gran (auto) Absolute Neuts (auto) Absolute Nucleated RBC Nucleated RBC % (auto) VBG pH 7.41 VBG pCO2 40 VBG pO2 54 VBG HCO3 25 VBG O2 Saturation 82.0 VBG Base Excess 1.0 Anion Gap Estim Creat Clear Calc Estimated GFR POC Glucose Random Glucose Estimat Average Glucose Hemoglobin A1c % Lactic Acid 1.9 Calcium Total Bilirubin AST ALT Alkaline Phosphatase Ammonia 23 Total Protein Albumin Urine Color Yellow Urine Appearance Clear Urine pH 5.5 Ur Specific [place] 1.020 Urine Protein Negative Urine Glucose (UA) Negative Urine Ketones 15 Urine Blood Negative Urine Nitrite Negative Ur Leukocyte Esterase Negative Urine Opiates Screen Not Detected Ur Buprenorphine Scrn Not Detected Ur Oxycodone Screen Not Detected Urine Methadone Screen Not Detected Urine Fentanyl Screen Not Detected Ur Barbiturates Screen Not Detected Ur Phencyclidine Scrn Not Detected Ur Amphetamines Screen Not Detected U Benzodiazepines Scrn POSITIVE H Urine Cocaine Screen Not Detected U Marijuana (THC) Screen Not Detected COVID-19 (KILEY) COVID-19 Clin Com Influenza Type A (PRINCESS) Influenza Type B (PRINCESS) Influenza A & B Note 02/16/25 02/16/25 02/17/25 16:41 22:58 04:55 MCV 91.6 MCH 30.2 MCHC 32.9 RDW 14.0 Plt Count 166 MPV 9.1 L Immature Gran % (Auto) Neut % (Auto) Lymph % (Auto) [place] % (Auto) Eos % (Auto) Baso % (Auto) Lymph # (Auto) [place] # (Auto) Eos # (Auto) Baso # (Auto) Abs Immat Gran (auto) Absolute Neuts (auto) Absolute Nucleated RBC 0.000 Nucleated RBC % (auto) 0.0 VBG pH VBG pCO2 VBG pO2 VBG HCO3 VBG O2 Saturation VBG Base Excess Anion Gap 13 Estim Creat Clear Calc 104.7 Estimated GFR > 60 POC Glucose 96 Random Glucose 83 Estimat Average Glucose Hemoglobin A1c % Lactic Acid Calcium 8.9 D Total Bilirubin AST ALT Alkaline Phosphatase Ammonia Total Protein Albumin Urine Color Urine Appearance Urine pH Ur Specific [place] Urine Protein Urine Glucose (UA) Urine Ketones Urine Blood Urine Nitrite Ur Leukocyte Esterase Urine Opiates Screen Ur Buprenorphine Scrn Ur Oxycodone Screen Urine Methadone Screen Urine Fentanyl Screen Ur Barbiturates Screen Ur Phencyclidine Scrn Ur Amphetamines Screen U Benzodiazepines Scrn Urine Cocaine Screen U Marijuana (THC) Screen COVID-19 (KILEY) Negative COVID-19 Clin Com See Note Influenza Type A (PRINCESS) Negative Influenza Type B (PRINCESS) Negative Influenza A & B Note See Note 02/17/25 02/17/25 07:12 08:09 MCV MCH MCHC RDW Plt Count MPV Immature Gran % (Auto) Neut % (Auto) Lymph % (Auto) [place] % (Auto) Eos % (Auto) Baso % (Auto) Lymph # (Auto) [place] # (Auto) Eos # (Auto) Baso # (Auto) Abs Immat Gran (auto) Absolute Neuts (auto) Absolute Nucleated RBC Nucleated RBC % (auto) VBG pH VBG pCO2 VBG pO2 VBG HCO3 VBG O2 Saturation VBG Base Excess Anion Gap Estim Creat Clear Calc Estimated GFR POC Glucose 97 Random Glucose Estimat Average Glucose 123 Hemoglobin A1c % 5.9 Lactic Acid Calcium Total Bilirubin AST ALT Alkaline Phosphatase Ammonia Total Protein Albumin Urine Color Urine Appearance Urine pH Ur Specific [place] Urine Protein Urine Glucose (UA) Urine Ketones Urine Blood Urine Nitrite Ur Leukocyte Esterase Urine Opiates Screen Ur Buprenorphine Scrn Ur Oxycodone Screen Urine Methadone Screen Urine Fentanyl Screen Ur Barbiturates Screen Ur Phencyclidine Scrn Ur Amphetamines Screen U Benzodiazepines Scrn Urine Cocaine Screen U Marijuana (THC) Screen COVID-19 (KILEY) COVID-19 Clin Com Influenza Type A (PRINCESS) Influenza Type B (PRINCESS) Influenza A & B Note Assessment and Plan (1) Psychosis: Status: Acute Plan 69M PMH schizoaffective disorder with psychotic features, major depressive disorder, diabetes, GERD presented to the ED on 02/14/2025 for multiple falls. became hypoxic on 02/16/25 acute toxic metabolic encephalopathy and Acute hypoxic respiratory failure due to aspiration pneumonia Speech eval, IV Unasyn, follow up cultures, wean O2 as tolerated, aspiration precautions weaned down to 1L, cotninue to wean as tolerated, goal saturation 91-94 Schizoaffective disorder with psychotic features Continued Depakote, Trilafon, psych/care team prior to discharge Diabetes Basal bolus insulin DVT prophylaxis with Lovenox Full Code reason for continued hospitalization:still hypoxic and lethargic, awaiting cultures Quality Stroke Does the patient have a stroke diagnosis?: No VTE Prior VTE?: No VTE Risk Level:: Medical - moderate - high VTE Device Contraindication: Treatment Not Indicated VTE Drug Contraindication: N/A - Med Ordered
[2025-02-17 08:37] LABS: Alanine Aminotransferase 13 U/L (0-40); Albumin Level 3.4 g/dL (3.5-5.0); Alkaline Phosphatase 97 U/L (39-117); Anion Gap 15 (12-20); Aspartate Amino Transferase 26 U/L (5-37); Blood Urea Nitrogen 15 mg/dL (9-16); Calcium 9.0 mg/dL (8.4-10.2); Carbon Dioxide 24 mmol/L (22-29); Chloride 111 mmol/L (96-108); Cholesterol 170 mg/dL (<200); Creatinine Clr Calc Pharmacy 101.5; Estimated Glomerular Filt Rate > 60; HDL Cholesterol 30 mg/dL (>40); Potassium 4.0 mmol/L (3.3-5.1); Sodium 146 mmol/L (135-145); Total Protein 6.5 g/dL (6.5-8.0); Triglycerides 190 mg/dL (<150)
[2025-02-17 08:55] LABS: Vitamin B12 356 pg/mL (200-900)
[2025-02-17 08:58] LABS: Thyroid Stimulating Hormone 1.01 uIU/mL (0.32-4.0)
--- NOTE | 2025-02-17 09:32 | PC.NURSE ---
Pt received from the ER in bed to 380. Camera and 1:[address] Pt opens eyes to voice speech is confused unable to participate in admission
--- NOTE | 2025-02-17 11:28 | PC.NURSE ---
Pt not cooperative with taking meds , spitting at this RN . pt Hypersexual making comments like shove it up your butt and fu*ck it unable to redirect
[2025-02-17 11:35] LABS: Glucose, Whole Blood 100 mg/dL (60-115)
--- NOTE | 2025-02-17 13:21 | MHC.CM.PN ---
PT IS A LTC RESIDENT OF [facility] WHO WAS BROUGHT IN ON A SECTION 12 COPY OF HCP REQUESTED FROM SNF PCP: SELVIN BETANCOURT CM ATTEMPTED TO CONTACT GUARDIAN, SHALONDA KIM [phone] SEVERAL TIMES, VM MESSAGE LEFT REQUESTING A RETURN CALL. IMM DELIVERED VIA VM DCP TBD: [facility] VS RETURN TO LTC BLS TRANSPORT
--- NOTE | 2025-02-17 14:31 | MHC.SL.SWA ---
Speech Pathologist Impression: Risk of Aspiration Due to: Dysphasia Diet Status: Liquid Consistency and Strategies for Safe Swallow: Liquid Intake Recommendation: Thin Liquid Intake Strategies: Solid Food Consistency: Dietary Recommendations: Grnd/Mech Altered (NDD2) Additional Modifications to Solid Foods: Oral Medication Intake: Crushed with Puree Please contact the pharmacy regarding appropriate crushable or liquid drug formulations that are available whenever modified delivery is recommended. Compensatory Strategies and Precautions to be Taken for Safe Swallow: Patient will require close supervision at all meals and may need 1-1 assistance as X RAY SERVICE TECHNICIAN unable to assess level of independence at this assessment. Alternate liquids and solids, blend ground foods into purees on tray. Patient has history of GERD, will need to remain upright at least 30 minutes after meal. Supervision While Eating and Drinking for Safe Swallow: Direct Supervision (1:1) Foods to Avoid: Tough, difficult to chew solids. Swallowing Recommended Treatments: Recommendation for Speech: Inpatient Speech Therapy Comment: Patient seen for brief exam only today due to poor cooperation. Presents on brief assessment with mild to moderate oral phase dysphagia secondary to edentulous state. Patient also confused. Recommend DOWNGRADE diet to Ground Mechanical (NDD2) continue on thin liquids, pills crushed in puree. Unable to assess patient's level of independence at this assessment, however recommend patient at a minimum have FULL supervision at all meals, as behavior and responses are unpredictable. VIRGIE DELANEY notified of recommendation by beti montana, RN in person. X RAY SERVICE TECHNICIAN will continue to follow. Frequency/Duration: Date Range for Service Req: Timeline to reassess: Banking Consultant Clinican/Clinical Fellow: No Supervisory Statement: I have reviewed and agree with the student/clinical fellow's documentation: N/A Speech Language Pathologist: Malia Worthy M.A., CCC-X RAY SERVICE TECHNICIAN
[2025-02-17 16:24] LABS: Glucose, Whole Blood 118 mg/dL (60-115)
[2025-02-17 21:07] LABS: Glucose, Whole Blood 104 mg/dL (60-115)
--- NOTE | 2025-02-17 21:42 | PC.NURSE ---
Addendum entered by Nancy Coates RN 02/17/25 22:47: Labs came back, Dr. Wilson updated with lab results. Vitals hr 110, bp 171/85, and satting 89% on 2 liters n/c increased to 3 liters n/c Original Note: Patient refusing all bedtime medications, opens eyes and closes right away, turns away falling back asleep, appears lethargic. Vitals 96.9, hr 101, rr 19, bp 162/78, 93% on 2 liters n/c Dr. Wilson notified. Stat orders: VBG and BMP
[2025-02-17 22:19] LABS: VBG HCO3 24 mmol/L (22-26); VBG O2 % Saturation 77.0 %
[2025-02-17 22:20] LABS: Venous Blood Gas Refer to POC result
[2025-02-17 22:32] LABS: Anion Gap 17 (12-20); Blood Urea Nitrogen 16 mg/dL (9-16); Calcium 9.1 mg/dL (8.4-10.2); Carbon Dioxide 25 mmol/L (22-29); Chloride 109 mmol/L (96-108); Creatinine Clr Calc Pharmacy 101.5; Estimated Glomerular Filt Rate > 60; Potassium 4.1 mmol/L (3.3-5.1); Sodium 147 mmol/L (135-145)
[2025-02-18] VITALS (12 sets, daily range): BP systolic 126–160; BP diastolic 62–89; PULSE 80–115; RESP 16–20; TEMP 36–36.8; O2SAT 85–100
--- NOTE | 2025-02-18 | ECG_ITS ---
Test Reason : tachycardia Blood Pressure : */* mmHG Vent. Rate : 99 BPM Atrial Rate : 99 BPM P-R Int : 124 ms QRS Dur : 80 ms QT Int : 348 ms P-R-T Axes : 67 -23 77 degrees QTcB Int : 446 ms Normal sinus rhythm Nonspecific ST abnormality Borderline ECG When compared with ECG of 14-Feb-2025 09:05, No significant change was found Referred By: Vazquez Hudson Electronically Signed By: CHANO GOLDSTEIN
[2025-02-18 00:36] LABS: Glucose, Whole Blood 147 mg/dL (60-115)
[2025-02-18] MEDS: Albuterol/Iprat 2.5/0.5MG 3 ML AMPUL.NEB INHALE ×5 (00:48→20:15)
--- NOTE | 2025-02-18 01:49 | PC.NURSE ---
Assumed care of this patient at 2300. Patient found to be 85% on 3L which was increased from 2L from previous RN. Oxygen turned up to 5L and respiratory therapist called as there was no oxymask available. Mask applied by therapist and turned up to 6L for sats 91%. MD notified of patient's need for more oxygen and told that the patient doesn't look well and was minimally responsive. saw patient and I placed nurse monitoring and continuous O2 as ordered and accompanied him to radiology. Security Sergeant notified and transfer order placed. He was then brought directly to Med/Tele in bed from Radiology and report given to Verónica. Verónica saw patient before I left the unit.
[2025-02-18 02:06] LABS: ABG HCO3 21 mmol/L (22-26); ABG O2 % Saturation 99.0 %
[2025-02-18] MEDS: Ampicillin Sodium/Sulbactam Na 1.5 GM in 0.9 % Sodium Chloride 100 ML IV ×4 (02:48→21:00)
[2025-02-18 04:05] LABS: ABG Refer to POC result
--- NOTE | 2025-02-18 05:54 | PM.EVENT ---
Event Note Date of Service: 02/18/25 Event Note: Contacted on multiple occasions overnight as the patient started to develop worsening oxygen saturation and lethargy. Nighttime meds not administered due to lethargy. On evaluation, patient grimaced to painful stimuli. Cardiopulmonary exam was remarkable for tachycardia and decreased breath sounds to the right base. Stat glucose was 147. Blood workup stat remarkable for worsening hyponatremia. ABG (on 7L/min supplemental O2) showed no respiratory acidosis and PO2 of 148. Head CT scan has been repeated and no acute findings noted. CXR showed possible infiltrate to the right lower lobe. Interventions: -Aspiration precautions -Suctioning by RT -IV fluids: D5 to run at 125 mL/hour -Oxygen therapy decreased to 3 L/min via OxyMask. -DuoNeb X1 than scheduled -Continue empiric IV antibiotic therapy with Unasyn Time Spent With Patient Time: Total time managing care of this patient today ____ minutes.
[2025-02-18 09:06] LABS: Glucose, Whole Blood 152 mg/dL (60-115)
--- NOTE | 2025-02-18 12:09 | MHC.SLORD ---
Speech Language Pathology Order Status: Pt is somnolent, on 5L O2 s/p event last night. Sitter at bedside, pt has not roused all day. Pt is currently NPO. ANESTHESIOLOGY PHYSICIAN to re-assess prior to PO resumption as indicated.
--- NOTE | 2025-02-18 14:29 | MHC.CM.PN ---
EMR reviewed and per MD rounds, pt is not medically cleared for discharge due to management of acute toxic metabolic encephalopathy and acute hypoxic respiratory failure due to aspiration pneumonia with cultures pending.
[2025-02-18] MEDS: 0.9 % Sodium Chloride Flush 3 ML SYRINGE IVFLUSH (15:41)
--- NOTE | 2025-02-18 17:09 | P.PNIM_ITS ---
Subjective Subjective Date of Service: 02/18/25 Interval History: Overnight events noted-? Possible aspiration event Review of Systems Shortness of breaths seems to be improving this morning More awake Oxygen demand is improving Review of Systems: Yes all other systems are reviewed and are negative Physical Exam 2 Exam: Exam: Appearance: More awake this afternoon cvs: rrr, [id number] res: clear to auscultation ,no rhonchii or wheezing abd: no rebound or guarding ,nt, bs present. ext pulses present , no cyanosis . neuro: axo3 , nonfocal. Vital Signs: Vital Signs: Last Vital Signs Temp 96.8 F 02/18/25 08:00 Pulse 92 02/18/25 15:53 Resp 18 02/18/25 15:53 BP 142/73 H 02/18/25 08:00 Pulse Ox 99 02/18/25 08:00 O2 Del Method Oxymask 02/18/25 08:00 O2 Flow Rate 2 02/18/25 08:00 BMI result Body Mass Index 23.3 Objective Data Active Medications Acetaminophen (Acetaminophen 325 Mg Tablet) 650 mg PO Q6H PRN PRN Reason: Headache/Pain, Scale 1-10 Al Hydroxide/Mg Hydroxide (Magnesium Hydrox/Alum Hydrox 30 Ml Oral.Susp) 30 ml PO Q6H PRN PRN Reason: Heartburn/Nausea Albuterol/Ipratropium (Albuterol/Iprat 2.5/0.5mg 3 Ml Ampul.Neb) 3 ml INHALE RQ4H WHILE AWAKE [facility] Last Admin: 02/18/25 15:41 Dose: 3 ml Documented By: EMIL Calcium Carbonate (Calcium Carbonate 750 Mg Tab.Chew) 750 mg PO Q4H PRN PRN Reason: Heartburn Clozapine (Clozapine 100 Mg Tablet) 300 mg PO TID [facility] Last Admin: 02/18/25 13:54 Dose: Not Given Documented By: SRINIVASA Non-Admin Reason: pt too lethargic Dextrose (Dextrose 50 % 25 Gm/50 Ml Syringe) 25 gm IVPUSH Q15M PRN; Protocol PRN Reason: per Hypoglycemia Standing Ord. Divalproex Sodium (Divalproex Sodium 500 Mg Tablet.) 500 mg PO BID [facility] Last Admin: 02/18/25 08:24 Dose: Not Given Documented By: SRINIVASA Non-Admin Reason: Patient Asleep Docusate Sodium (Docusate Sodium 100 Mg Capsule) 100 mg PO BID [facility] Last Admin: 02/18/25 08:24 Dose: Not Given Documented By: SRINIVASA Non-Admin Reason: Patient Asleep Enoxaparin Sodium (Enoxaparin Sodium 40 Mg/0.4 Ml Syringe) 40 mg SUBCUT Q24H [facility] Last Admin: 02/18/25 08:18 Dose: 40 mg Documented By: SRINIVASA Fluoxetine HCl (Fluoxetine Hcl 20 Mg Capsule) 40 mg PO BEDTIME [facility] Last Admin: 02/17/25 21:36 Dose: Not Given Documented By: JANET Non-Admin Reason: pt refused; md aware Glucagon (Glucagon Hcl 1 Mg Vial) 1 mg IM Q20M PRN PRN Reason: low BG Glucose (Glucose Gel 15 Gm Gel..Gram.) 15 gm PO Q15M PRN; Protocol PRN Reason: per Hypoglycemia Standing Ord. Ampicillin Sodium/Sulbactam (Sodium 1.5 gm/ Sodium Chloride) 100 mls @ 200 mls/hr IV Q6H [facility] Last Infusion: 02/18/25 14:54 Dose: Infused Documented By: SRINIVASA Insulin Glargine (Insulin Glargine,Hum.Rec.Anlog 100 Unit/Ml 10 Ml Vial) 24 unit SUBCUT DAILY [facility] Last Admin: 02/18/25 09:21 Dose: Not Given Documented By: SRINIVASA Non-Admin Reason: not eating Insulin Human Lispro (Insulin Lispro 100 Unit/Ml 3 Ml Vial) 0 unit SUBCUT QIDACHS [facility]; Protocol Last Admin: 02/18/25 15:46 Dose: Not Given Documented By: JODI Non-Admin Reason: Patient Refused Magnesium Hydroxide (Milk Of Magnesia 30 Ml Oral.Susp) 30 ml PO DAILY PRN PRN Reason: Constipation Magnesium Hydroxide (Milk Of Magnesia 30 Ml Oral.Susp) 30 ml PO DAILY PRN PRN Reason: Constipation Melatonin (Melatonin 3 Mg Tablet) 6 mg PO BEDTIME PRN PRN Reason: Insomnia Metoprolol Tartrate (Metoprolol Tartrate 12.5 Mg Halftab) 12.5 mg PO BID [facility]; Protocol Last Admin: 02/18/25 08:24 Dose: Not Given Documented By: SRINIVASA Non-Admin Reason: Patient Asleep Omeprazole (Omeprazole 20 Mg Capsule.Dr) 20 mg PO DAILY@0630 [facility] Last Admin: 02/18/25 05:29 Dose: Not Given Documented By: HERLINDA Non-Admin Reason: NPO at this time. Perphenazine (Perphenazine 2 Mg Tablet) 2 mg PO BID [facility] Last Admin: 02/18/25 08:24 Dose: Not Given Documented By: SRINIVASA Non-Admin Reason: Patient Asleep Perphenazine (Perphenazine 4 Mg Tablet) 4 mg PO BID [facility] Last Admin: 02/18/25 08:24 Dose: Not Given Documented By: SRINIVASA Non-Admin Reason: Patient Asleep Senna (Sennosides 8.6 Mg Tablet) 8.6 mg PO DAILY [facility] Last Admin: 02/18/25 08:25 Dose: Not Given Documented By: SRINIVASA Non-Admin Reason: Patient Asleep Sodium Biphosphate/Sodium Phosphate (Sodium Phosphate,[place]-Dibasic 133 Ml Enema) 133 ml [place] DAILY PRN PRN Reason: Constipation Sodium Chloride (0.9 % Sodium Chloride Flush 3 Ml Syringe) 3 ml IVFLUSH QSHIFT [facility] Last Admin: 02/18/25 15:41 Dose: 3 ml Documented By: JODI Trazodone HCl (Trazodone Hcl 50 Mg Tablet) 50 mg PO BEDTIME MRX1 PRN PRN Reason: Insomnia Labs 02/17/25 04:55 02/17/25 22:09 Labs: Laboratory Results - last 24 hr 02/17/25 02/17/25 02/17/25 21:02 22:09 22:15 O2 Saturation ABG pH at Pt Temp ABG pCO2 at Pt Temp ABG pO2 at Pt Temp ABG HCO3 ABG Base Excess (Actual) VBG pH 7.40 VBG pCO2 37 VBG pO2 50 VBG HCO3 24 VBG O2 Saturation 77.0 VBG Base Excess -0.3 Anion Gap 17 Estim Creat Clear Calc 101.5 Estimated GFR > 60 POC Glucose 104 Random Glucose 112 Calcium 9.1 02/18/25 02/18/25 02/18/25 00:31 02:01 09:02 O2 Saturation 99.0 ABG pH at Pt Temp 7.36 ABG pCO2 at Pt Temp 37 ABG pO2 at Pt Temp 148 H ABG HCO3 21 L ABG Base Excess (Actual) -3.4 VBG pH VBG pCO2 VBG pO2 VBG HCO3 VBG O2 Saturation VBG Base Excess Anion Gap Estim Creat Clear Calc Estimated GFR POC Glucose 147 H 152 H Random Glucose Calcium Microbiology Microbiology Results: Microbiology 02/16/25 16:38 Blood Culture - Preliminary Blood - Venous No growth after 24 hours. 02/16/25 16:41 Blood Culture - Preliminary Blood - Venous No growth after 24 hours. Assessment and Plan (1) Pneumonia: Status: Acute (2) Hypoxia: Status: Acute Assessment and Plan: 69M PMH schizoaffective disorder with psychotic features, major depressive disorder, diabetes, GERD presented to the ED on 02/14/2025 for multiple falls. became hypoxic on 02/16/25 acute toxic metabolic encephalopathy and Acute hypoxic respiratory failure due to aspiration pneumonia Overnight likely had aspiration? IV Unasyn, blood cultures neg@24hrs, wean O2 as tolerated, aspiration precautions, cotninue to wean as tolerated, goal saturation 91-94 Seen by speech and swallow--NPO for now,ivf . Schizoaffective disorder with psychotic features Continued Depakote, Trilafon, psych/care team prior to discharge Diabetes Basal bolus insulin DVT prophylaxis with Lovenox Full Code reason for continued hospitalization:still hypoxic and lethargic, awaiting cultures,ivf ,iv antibiotics Quality Stroke Does the patient have a stroke diagnosis?: No VTE Prior VTE?: No VTE Risk Level:: Medical - moderate - high VTE Device Contraindication: Treatment Not Indicated VTE Drug Contraindication: N/A - Med Ordered
[2025-02-18 19:19] LABS: Anion Gap 12 (12-20); Blood Urea Nitrogen 9 mg/dL (9-16); Calcium 8.8 mg/dL (8.4-10.2); Carbon Dioxide 27 mmol/L (22-29); Chloride 110 mmol/L (96-108); Creatinine Clr Calc Pharmacy 103.1; Estimated Glomerular Filt Rate > 60; Potassium 3.8 mmol/L (3.3-5.1); Sodium 145 mmol/L (135-145)
[2025-02-18 19:47] LABS: Glucose, Whole Blood 116 mg/dL (60-115)
[2025-02-19] VITALS (8 sets, daily range): BP systolic 146–161; BP diastolic 63–79; PULSE 68–95; RESP 16–18; TEMP 36.1–36.6; O2SAT 97–99
[2025-02-19] MEDS: Ampicillin Sodium/Sulbactam Na 1.5 GM in 0.9 % Sodium Chloride 100 ML IV ×4 (02:00→19:17)
[2025-02-19 03:19] LABS: Glucose, Whole Blood 140 mg/dL (60-115)
--- NOTE | 2025-02-19 07:44 | PC.NURSE ---
Assumed care at 1900. Pt alert to self only. Pt lethargic, unchanged from previous shift. Pt made comments to this RN Can you just get the pillow and end it already and Can you give me a lethal injection . This RN provided verbal reassurance and therapeutic touch. 1:[address] Care ongoing.
--- NOTE | 2025-02-19 08:17 | P.PNIM_ITS ---
Subjective Subjective Date of Service: 02/19/25 Interval History: acute toxic metabolic encephalopathy and Acute hypoxic respiratory failure due to aspiration pneumoni Review of Systems intermittent agiatated ,speak ,otherwise closes eyes no seizure like activity Physical Exam 2 Exam: Exam: Appearance: More awake ,intermittent closes eyes ,also expresses si cvs: rrr, [id number] res: clear to auscultation ,no rhonchii or wheezing abd: no rebound or guarding ,nt, bs present. ext pulses present , no cyanosis . neuro: non cooperative. Vital Signs: Vital Signs: Last Vital Signs Temp 97.8 F 02/19/25 07:01 Pulse 74 02/19/25 07:01 Resp 16 02/19/25 07:01 BP 146/63 H 02/19/25 07:01 Pulse Ox 99 02/19/25 07:01 O2 Del Method Oxymask 02/19/25 07:01 O2 Flow Rate 2 02/19/25 07:01 BMI result Body Mass Index 23.3 Objective Data Active Medications Acetaminophen (Acetaminophen 325 Mg Tablet) 650 mg PO Q6H PRN PRN Reason: Headache/Pain, Scale 1-10 Al Hydroxide/Mg Hydroxide (Magnesium Hydrox/Alum Hydrox 30 Ml Oral.Susp) 30 ml PO Q6H PRN PRN Reason: Heartburn/Nausea Albuterol/Ipratropium (Albuterol/Iprat 2.5/0.5mg 3 Ml Ampul.Neb) 3 ml INHALE RQ4H WHILE AWAKE [facility] Last Admin: 02/19/25 07:52 Dose: Not Given Documented By: GUY Non-Admin Reason: Patient Refused Calcium Carbonate (Calcium Carbonate 750 Mg Tab.Chew) 750 mg PO Q4H PRN PRN Reason: Heartburn Clozapine (Clozapine 100 Mg Tablet) 300 mg PO TID [facility] Last Admin: 02/18/25 21:32 Dose: Not Given Documented By: RONDA Non-Admin Reason: NPO Dextrose (Dextrose 50 % 25 Gm/50 Ml Syringe) 25 gm IVPUSH Q15M PRN; Protocol PRN Reason: per Hypoglycemia Standing Ord. Divalproex Sodium (Divalproex Sodium 500 Mg Tablet.) 500 mg PO BID [facility] Last Admin: 02/18/25 21:32 Dose: Not Given Documented By: RONDA Non-Admin Reason: NPO Docusate Sodium (Docusate Sodium 100 Mg Capsule) 100 mg PO BID [facility] Last Admin: 02/18/25 21:32 Dose: Not Given Documented By: RONDA Non-Admin Reason: NPO Enoxaparin Sodium (Enoxaparin Sodium 40 Mg/0.4 Ml Syringe) 40 mg SUBCUT Q24H [facility] Last Admin: 02/18/25 08:18 Dose: 40 mg Documented By: SRINIVASA Fluoxetine HCl (Fluoxetine Hcl 20 Mg Capsule) 40 mg PO BEDTIME [facility] Last Admin: 02/18/25 21:34 Dose: Not Given Documented By: RONDA Non-Admin Reason: NPO Glucagon (Glucagon Hcl 1 Mg Vial) 1 mg IM Q20M PRN PRN Reason: low BG Glucose (Glucose Gel 15 Gm Gel..Gram.) 15 gm PO Q15M PRN; Protocol PRN Reason: per Hypoglycemia Standing Ord. Ampicillin Sodium/Sulbactam (Sodium 1.5 gm/ Sodium Chloride) 100 mls @ 200 mls/hr IV Q6H [facility] Last Infusion: 02/19/25 07:34 Dose: Infused Documented By: HEVER Dextrose (D5w) 1,000 mls @ 75 mls/hr IVCONT .[id number] [facility] Last Admin: 02/18/25 21:39 Dose: 75 mls/hr Documented By: RONDA Insulin Glargine (Insulin Glargine,Hum.Rec.Anlog 100 Unit/Ml 10 Ml Vial) 24 unit SUBCUT DAILY [facility] On Hold: 02/18/25 20:34 Last Admin: 02/18/25 09:21 Dose: Not Given Documented By: SRINIVASA Non-Admin Reason: not eating Insulin Human Lispro (Insulin Lispro 100 Unit/Ml 3 Ml Vial) 0 unit SUBCUT Q6H [facility]; Protocol Last Admin: 02/19/25 03:38 Dose: Not Given Documented By: RONDA Non-Admin Reason: No Insulin Coverage Magnesium Hydroxide (Milk Of Magnesia 30 Ml Oral.Susp) 30 ml PO DAILY PRN PRN Reason: Constipation Magnesium Hydroxide (Milk Of Magnesia 30 Ml Oral.Susp) 30 ml PO DAILY PRN PRN Reason: Constipation Melatonin (Melatonin 3 Mg Tablet) 6 mg PO BEDTIME PRN PRN Reason: Insomnia Metoprolol Tartrate (Metoprolol Tartrate 12.5 Mg Halftab) 12.5 mg PO BID [facility]; Protocol Last Admin: 02/18/25 21:34 Dose: Not Given Documented By: RONDA Non-Admin Reason: NPO Omeprazole (Omeprazole 20 Mg Capsule.Dr) 20 mg PO DAILY@0630 [facility] Last Admin: 02/19/25 06:29 Dose: Not Given Documented By: RONDA Non-Admin Reason: NPO Perphenazine (Perphenazine 2 Mg Tablet) 2 mg PO BID [facility] Last Admin: 02/18/25 21:34 Dose: Not Given Documented By: RONDA Non-Admin Reason: NPO Perphenazine (Perphenazine 4 Mg Tablet) 4 mg PO BID [facility] Last Admin: 02/18/25 21:35 Dose: Not Given Documented By: RONDA Non-Admin Reason: NPO Senna (Sennosides 8.6 Mg Tablet) 8.6 mg PO DAILY [facility] Last Admin: 02/18/25 08:25 Dose: Not Given Documented By: SRINIVASA Non-Admin Reason: Patient Asleep Sodium Biphosphate/Sodium Phosphate (Sodium Phosphate,[place]-Dibasic 133 Ml Enema) 133 ml [place] DAILY PRN PRN Reason: Constipation Sodium Chloride (0.9 % Sodium Chloride Flush 3 Ml Syringe) 3 ml IVFLUSH QSHIFT [facility] Last Admin: 02/19/25 00:23 Dose: Not Given Documented By: RONDA Non-Admin Reason: Previously Administered Trazodone HCl (Trazodone Hcl 50 Mg Tablet) 50 mg PO BEDTIME MRX1 PRN PRN Reason: Insomnia Labs 02/17/25 04:55 02/19/25 08:44 Labs: Laboratory Results - last 24 hr 02/18/25 02/18/25 02/18/25 09:02 18:54 19:44 Anion Gap 12 Estim Creat Clear Calc 103.1 Estimated GFR > 60 POC Glucose 152 H 116 H Random Glucose 129 H Calcium 8.8 02/19/25 03:15 Anion Gap Estim Creat Clear Calc Estimated GFR POC Glucose 140 H Random Glucose Calcium Microbiology Microbiology Results: Microbiology 02/16/25 16:38 Blood Culture - Preliminary Blood - Venous No growth after 48 hours. 02/16/25 16:41 Blood Culture - Preliminary Blood - Venous No growth after 48 hours. Assessment and Plan (1) Pneumonia: Status: Acute (2) Hypoxia: Status: Acute Assessment and Plan: 69M PMH schizoaffective disorder with psychotic features, major depressive disorder, diabetes, GERD presented to the ED on 02/14/2025 for multiple falls. became hypoxic on 02/16/25 acute toxic metabolic encephalopathy and Acute hypoxic respiratory failure due to aspiration pneumonia Overnight likely had aspiration? IV Unasyn, blood cultures neg@24hrs, wean O2 as tolerated, aspiration precautions, continue to wean as tolerated, goal saturation 91-94 Seen by speech and swallow-purred /nector thick. Schizoaffective disorder with psychotic features,also says si intermittent ( speech noticed ,also myself) clozapine levels Continued Depakote, Trilafon, psych/care team prior to discharge. Diabetes Basal bolus insulin DVT prophylaxis with Lovenox Full Code reason for continued hospitalization:still hypoxic and lethargic, awaiting cultures,ivf ,iv antibiotics. Quality Stroke Does the patient have a stroke diagnosis?: No VTE Prior VTE?: No VTE Risk Level:: Medical - moderate - high VTE Device Contraindication: Treatment Not Indicated VTE Drug Contraindication: N/A - Med Ordered
[2025-02-19 09:16] LABS: Anion Gap 10 (12-20); Blood Urea Nitrogen 10 mg/dL (9-16); Calcium 8.7 mg/dL (8.4-10.2); Carbon Dioxide 25 mmol/L (22-29); Chloride 110 mmol/L (96-108); Creatinine Clr Calc Pharmacy 115.5; Estimated Glomerular Filt Rate > 60; Potassium 4.5 mmol/L (3.3-5.1); Sodium 140 mmol/L (135-145)
[2025-02-19 09:20] LABS: Glucose, Whole Blood 156 mg/dL (60-115)
--- NOTE | 2025-02-19 09:27 | PM.CNPUL ---
History of Present Illness History of Present Illness Consult date: 02/19/25 Requesting physician: Colleen Burns Chief complaint: Aspiration pneumonia Narrative: I have seen this patient for pulmonary consultation, this morning. Patient Cannot have any meaningful conversation, and I have obtained the information mostly from the medical record and also talking to hospitalist Dr. Burns. This 69 years old, patient from [facility] and currently was in our geriatric psych unit, because of suicidal ideation. He has PMH of schizoaffective disorder with psychotic features, major depressive disorder, diabetes, GERD presented to the ED on 02/14/2025 for multiple falls. Plan was for admission to Geriatric Psychiatry as patient was actively agitated with signs of psychosis, however on 02/16/2025 patient noted to be more drowsy and hypoxic, 83% on room air. CT chest showed prominent amount of secretions in the airways greatest in left lower lobe with bronchial wall thickening. Patient himself unable to provide history. Patient has been admitted to the medical floor. There has been a question of aspiration. He is being treated with IV Unasyn , oxygen supplements, and suctioning as needed., clinically noted to be improving. Pulmonary consultation was requested for any further recommendations. This morning when I saw this patient , he is alert but does not carry out any meaningful conversation. He does not seem to be in any distress at this time, he is oxygenating well with O2 1 L/min . Vital signs are stable and he is afebrile. Review of Systems Review of Systems Review of Systems: Yes Unobtainable due to mental status PMFSH Past Medical History Medical History Schizoaffective disorder Social History Social History Household Members: Other Housing: Assisted Do you presently have visiting nurse or other home services: No Comment: 1:[address] Patient Tobacco Use Status: Tobacco use Unknown Smoked in Last 30 Days: No Use of substances other than those prescribed or required for medical reasons: No Currently Displaying Signs/Symptoms of Drug Intoxication Withdrawal: No Advance Directives: No Advance Directives Information Provided: No Do you have a plan to hurt others: Vague service: No Meds Allergies Allergy/AdvReac Type Severity Reaction Status Date / Time No Known Allergies Allergy Verified 02/14/25 08:42 Active Medications: Current Medications Acetaminophen (Acetaminophen 325 Mg Tablet) 650 mg PO Q6H PRN PRN Reason: Headache/Pain, Scale 1-10 Al Hydroxide/Mg Hydroxide (Magnesium Hydrox/Alum Hydrox 30 Ml Oral.Susp) 30 ml PO Q6H PRN PRN Reason: Heartburn/Nausea Albuterol/Ipratropium (Albuterol/Iprat 2.5/0.5mg 3 Ml Ampul.Neb) 3 ml INHALE RQ4H WHILE AWAKE [facility] Last Admin: 02/19/25 07:52 Dose: Not Given Calcium Carbonate (Calcium Carbonate 750 Mg Tab.Chew) 750 mg PO Q4H PRN PRN Reason: Heartburn Clozapine (Clozapine 100 Mg Tablet) 300 mg PO TID [facility] Last Admin: 02/18/25 21:32 Dose: Not Given Dextrose (Dextrose 50 % 25 Gm/50 Ml Syringe) 25 gm IVPUSH Q15M PRN; Protocol PRN Reason: per Hypoglycemia Standing Ord. Divalproex Sodium (Divalproex Sodium 500 Mg Tablet.) 500 mg PO BID [facility] Last Admin: 02/18/25 21:32 Dose: Not Given Docusate Sodium (Docusate Sodium 100 Mg Capsule) 100 mg PO BID [facility] Last Admin: 02/18/25 21:32 Dose: Not Given Enoxaparin Sodium (Enoxaparin Sodium 40 Mg/0.4 Ml Syringe) 40 mg SUBCUT Q24H [facility] Last Admin: 02/18/25 08:18 Dose: 40 mg Fluoxetine HCl (Fluoxetine Hcl 20 Mg Capsule) 40 mg PO BEDTIME [facility] Last Admin: 02/18/25 21:34 Dose: Not Given Glucagon (Glucagon Hcl 1 Mg Vial) 1 mg IM Q20M PRN PRN Reason: low BG Glucose (Glucose Gel 15 Gm Gel..Gram.) 15 gm PO Q15M PRN; Protocol PRN Reason: per Hypoglycemia Standing Ord. Ampicillin Sodium/Sulbactam (Sodium 1.5 gm/ Sodium Chloride) 100 mls @ 200 mls/hr IV Q6H [facility] Last Infusion: 02/19/25 07:34 Dose: Infused Dextrose (D5w) 1,000 mls @ 75 mls/hr IVCONT .[id number] [facility] Last Admin: 02/18/25 21:39 Dose: 75 mls/hr Insulin Glargine (Insulin Glargine,Hum.Rec.Anlog 100 Unit/Ml 10 Ml Vial) 24 unit SUBCUT DAILY [facility] On Hold: 02/18/25 20:34 Last Admin: 02/18/25 09:21 Dose: Not Given Insulin Human Lispro (Insulin Lispro 100 Unit/Ml 3 Ml Vial) 0 unit SUBCUT Q6H [facility]; Protocol Last Admin: 02/19/25 03:38 Dose: Not Given Magnesium Hydroxide (Milk Of Magnesia 30 Ml Oral.Susp) 30 ml PO DAILY PRN PRN Reason: Constipation Magnesium Hydroxide (Milk Of Magnesia 30 Ml Oral.Susp) 30 ml PO DAILY PRN PRN Reason: Constipation Melatonin (Melatonin 3 Mg Tablet) 6 mg PO BEDTIME PRN PRN Reason: Insomnia Metoprolol Tartrate (Metoprolol Tartrate 12.5 Mg Halftab) 12.5 mg PO BID [facility]; Protocol Last Admin: 02/18/25 21:34 Dose: Not Given Omeprazole (Omeprazole 20 Mg Capsule.Dr) 20 mg PO DAILY@0630 [facility] Last Admin: 02/19/25 06:29 Dose: Not Given Perphenazine (Perphenazine 2 Mg Tablet) 2 mg PO BID [facility] Last Admin: 02/18/25 21:34 Dose: Not Given Perphenazine (Perphenazine 4 Mg Tablet) 4 mg PO BID [facility] Last Admin: 02/18/25 21:35 Dose: Not Given Senna (Sennosides 8.6 Mg Tablet) 8.6 mg PO DAILY [facility] Last Admin: 02/18/25 08:25 Dose: Not Given Sodium Biphosphate/Sodium Phosphate (Sodium Phosphate,[place]-Dibasic 133 Ml Enema) 133 ml [place] DAILY PRN PRN Reason: Constipation Sodium Chloride (0.9 % Sodium Chloride Flush 3 Ml Syringe) 3 ml IVFLUSH QSHIFT [facility] Last Admin: 02/19/25 00:23 Dose: Not Given Trazodone HCl (Trazodone Hcl 50 Mg Tablet) 50 mg PO BEDTIME MRX1 PRN PRN Reason: Insomnia Home Medications ?Medication ?Instructions ?Recorded ?Confirmed ?Last Taken ?Type clozapine 100 mg tablet 300 mg PO TID 02/15/25 02/15/25 02/13/25 History diazepam 2 mg tablet (Valium) 3 mg PO BID 02/15/25 02/15/25 Unknown History divalproex 500 mg tablet,delayed 500 mg PO BID 02/15/25 02/15/25 Unknown History release docusate sodium 100 mg capsule 100 mg PO BID 02/15/25 02/15/25 Unknown History (Colace) dulaglutide 3 mg/0.5 mL 3 mg subcut QWEEK 02/15/25 02/15/25 Unknown History subcutaneous pen injector (Trulicity) fluoxetine 40 mg capsule 40 mg PO QPM 02/15/25 02/15/25 Unknown History glucagon 1 mg/0.2 mL subcutaneous 1 mg subcut Q20M PRN low BG 02/15/25 02/15/25 Unknown History solution insulin glargine 100 unit/mL (3 24 unit subcut QAM 02/15/25 02/15/25 Unknown History mL) subcutaneous pen (Lantus Solostar U-100 Insulin) lorazepam 1 mg tablet 1 mg PO BID 02/15/25 02/15/25 Unknown History metformin 1,000 mg tablet 1,000 mg PO BID 02/15/25 02/15/25 Unknown History metoprolol tartrate 25 mg tablet 12.5 mg PO BID 02/15/25 02/15/25 Unknown History pantoprazole 40 mg tablet,delayed 40 mg PO DAILY 02/15/25 02/15/25 Unknown History release perphenazine 2 mg tablet 2 mg PO BID 02/15/25 02/15/25 Unknown History perphenazine 4 mg tablet 4 mg PO BID 02/15/25 02/15/25 Unknown History sennosides 8.6 mg tablet (senna) 8.6 mg PO DAILY 02/15/25 02/15/25 Unknown History sodium phosphates 19 gram-7 118 ml [place] DAILY PRN Constipation 02/15/25 02/15/25 Unknown History gram/118 mL enema (Fleet Enema) Physical Exam Exam: Exam: Patient is somewhat agitated, would not allow me to perform any detailed examination. Could not check his throat. Neck examination reveals no JVD trachea is in midline. Chest percussion note is resonant, breath sounds are equal on both. Sides slightly distant A few Creps over the basilar areas but no wheezes are heard. Cardiac sounds. are normal no murmurs or gallops Patient would not allow anymore examination. Vital Signs: Vital Signs: Last Vital Signs Temp 97.8 F 02/19/25 07:01 Pulse 74 02/19/25 07:01 Resp 16 02/19/25 07:01 BP 146/63 H 02/19/25 07:01 Pulse Ox 99 02/19/25 07:01 O2 Del Method Oxymask 02/19/25 07:01 O2 Flow Rate 2 02/19/25 07:01 BMI result Body Mass Index 23.3 Results Laboratory Findings 02/17/25 04:55 02/19/25 08:44 Abnormal lab findings: Abnormal Labs 02/14/25 02/14/25 02/16/25 09:47 16:22 15:00 RBC Hgb Hct MPV 8.9 L 8.9 L Immature Gran % (Auto) 0.6 H Neut % (Auto) 75.5 H Lymph % (Auto) 15.2 L Abs Immat Gran (auto) 0.05 H ABG pO2 at Pt Temp ABG HCO3 Sodium 149 H Chloride 109 H Anion Gap 23 H BUN 8 L 17 H POC Glucose Random Glucose 157 H Albumin Triglycerides LDL Cholesterol, Calc HDL Cholesterol Urine Protein 30 (1+) H Urine Glucose (UA) 250 H U Benzodiazepines Scrn 02/16/25 02/17/25 02/17/25 15:24 04:55 08:09 RBC 4.51 L Hgb 13.6 L Hct 41.3 L MPV 9.1 L Immature Gran % (Auto) Neut % (Auto) Lymph % (Auto) Abs Immat Gran (auto) ABG pO2 at Pt Temp ABG HCO3 Sodium 146 H Chloride 112 H 111 H Anion Gap BUN POC Glucose Random Glucose Albumin 3.4 L Triglycerides 190 H LDL Cholesterol, Calc 102 H HDL Cholesterol 30 L Urine Protein Urine Glucose (UA) U Benzodiazepines Scrn POSITIVE H 02/17/25 02/17/25 02/18/25 16:20 22:09 00:31 RBC Hgb Hct MPV Immature Gran % (Auto) Neut % (Auto) Lymph % (Auto) Abs Immat Gran (auto) ABG pO2 at Pt Temp ABG HCO3 Sodium 147 H Chloride 109 H Anion Gap BUN POC Glucose 118 H 147 H Random Glucose Albumin Triglycerides LDL Cholesterol, Calc HDL Cholesterol Urine Protein Urine Glucose (UA) U Benzodiazepines Scrn 02/18/25 02/18/25 02/18/25 02:01 09:02 18:54 RBC Hgb Hct MPV Immature Gran % (Auto) Neut % (Auto) Lymph % (Auto) Abs Immat Gran (auto) ABG pO2 at Pt Temp 148 H ABG HCO3 21 L Sodium Chloride 110 H Anion Gap BUN POC Glucose 152 H Random Glucose 129 H Albumin Triglycerides LDL Cholesterol, Calc HDL Cholesterol Urine Protein Urine Glucose (UA) U Benzodiazepines Scrn 02/18/25 02/19/25 02/19/25 19:44 03:15 08:44 RBC Hgb Hct MPV Immature Gran % (Auto) Neut % (Auto) Lymph % (Auto) Abs Immat Gran (auto) ABG pO2 at Pt Temp ABG HCO3 Sodium Chloride 110 H Anion Gap 10 L BUN POC Glucose 116 H 140 H Random Glucose 178 H Albumin Triglycerides LDL Cholesterol, Calc HDL Cholesterol Urine Protein Urine Glucose (UA) U Benzodiazepines Scrn 02/19/25 09:16 RBC Hgb Hct MPV Immature Gran % (Auto) Neut % (Auto) Lymph % (Auto) Abs Immat Gran (auto) ABG pO2 at Pt Temp ABG HCO3 Sodium Chloride Anion Gap BUN POC Glucose 156 H Random Glucose Albumin Triglycerides LDL Cholesterol, Calc HDL Cholesterol Urine Protein Urine Glucose (UA) U Benzodiazepines Scrn Microbiology: Microbiology 02/16/25 16:38 Blood - Venous Blood Culture - Preliminary No growth after 48 hours. 02/16/25 16:41 Blood - Venous Blood Culture - Preliminary No growth after 48 hours. Diagnostic Findings Chest x-ray: report reviewed and image reviewed Assessment and Plan (1) Pneumonia: Status: Acute (2) Hypoxia: Status: Acute (3) Schizoaffective disorder: Status: Acute Plan I have discussed the case with who is taking care of him on the floor. Circumstantial evidence is more in favor of possible pulmonary aspiration. Even though there is no definite consolidation he may have aspiration pneumonitis especially in right lower lobe area. The hypoxemia resulted from this acute incident, and is now resolving. This patient may very well have underlying chronic pulmonary disease such as chronic bronchitis/COPD . I agree with the current treatment plan, IV Unasyn Q 6 hours, . As soon as patient is able to take meds p.o., safely, this can be changed to Augmentin 500 mg t.i.d. one-week. Ipratropium-albuterol solution in the nebulizer Q 6 hours p.r.n.. Suction p.r.n.. Follow the instruction from speech therapy. Aspiration precautions. Transfer back to psych unit when appropriate. Thank you very much for asking me to see this patient . Procedures Date of Service Date of Service: 02/19/25
[2025-02-19] MEDS: 0.9 % Sodium Chloride Flush 3 ML SYRINGE IVFLUSH ×2 (11:10→16:45)
[2025-02-19] MEDS: Albuterol/Iprat 2.5/0.5MG 3 ML AMPUL.NEB INHALE ×3 (11:24→19:00)
--- NOTE | 2025-02-19 14:10 | MHC.SL.SWA ---
Speech Pathologist Impression: Risk of Aspiration Due to: Dysphasia Diet Status: Recommend UPGRADE from NPO to PUREE (NDD1) with NECTAR THICK juice, no straw/cup sip only, pills crushed in puree. Liquid Consistency and Strategies for Safe Swallow: Liquid Intake Recommendation: [place] Thick Liquid Intake Strategies: Small Sips No Straws Solid Food Consistency: Dietary Recommendations: Pureed (NDD1) Additional Modifications to Solid Foods: REMOVE KNIFE and FORK from tray if present, leave spoon. Open all items and prepare tray, orient patient to tray. Patient will likely refuse to eat, attempt to encourage/cue, give context to patient, however avoid escalating if patient resists/refuses. Oral Medication Intake: Crushed with Puree Please contact the pharmacy regarding appropriate crushable or liquid drug formulations that are available whenever modified delivery is recommended. Compensatory Strategies and Precautions to be Taken for Safe Swallow: Sitting Upright (90 deg) No Straw Liquids from Cup Small Bites and Sips Alternate Liquids/Solids Supervision While Eating and Drinking for Safe Swallow: Direct Supervision (1:1) Foods to Avoid: Tough, difficult to chew solids. Swallowing Recommended Treatments: Compens. Strategy Educat. Recommendation for Speech: Inpatient Speech Therapy Comment: Patient was awake and alert, sitter present in room, head of bed adjusted to 90 degrees. Patient was verbally inappropriate throughout, uncooperative, cursing and making verbal threats. Patient given cup sip of water, though patient presented as unaware despite verbal direction and visual presentation of the cup, had poor oral management of sip of water, and coughed with swallow, laryngeal transit on swallow WFL. Patient then given spoon sip of water, with improved oral management, timely swallow, laryngeal transit WFL, no coughing. PUPPET ENGINEER then attempted to give patient bite of puree, patient protesting, kept mouth closed, some puree deposited on mouth, patient made no attempt to lick taste off, land leasing examiner then wiped puree from mouth. On second offer of spoon of puree, patient swung at PUPPET ENGINEER with right hand arm forcefully, missed, remained escalated (stated bet you didn't think i'd do that! ). PUPPET ENGINEER discontinued trials. Discussed attempt to assess and incident with MD, Dr. Burns, with medical goal to restart diet. Recommended patient START diet of PUREE with NECTAR THICK liquids, pills crushed in puree. Recommended patient receive safety tray with plastic cutlery/no knife given patient frequent expression of SI. , RN, PUPPET ENGINEER unable to find how to order this tray in [facility], PUPPET ENGINEER consulted kitchen who also unaware how to order in [facility]. PUPPET ENGINEER instead marked white board in patient's room with diet recommendation and that only spoon should be on tray (remove knife, fork). Discussed this with current sitter. All recommendations discussed with , RN in person. Frequency/Duration: Date Range for Service Req: Timeline to reassess: Pricing Coordinator Clinican/Clinical Fellow: No Supervisory Statement: I have reviewed and agree with the student/clinical fellow's documentation: N/A Speech Language Pathologist: Malia Worthy M.A., CCC-PUPPET ENGINEER
[2025-02-19 14:50] LABS: Glucose, Whole Blood 175 mg/dL (60-115)
[2025-02-19] MEDS: Metoprolol Tartrate 12.5 MG HALFTAB PO (19:19)
[2025-02-19 20:44] LABS: Glucose, Whole Blood 167 mg/dL (60-115)
[2025-02-20] VITALS (8 sets, daily range): BP systolic 140–167; BP diastolic 68–76; PULSE 69–94; RESP 14–20; TEMP 36–36.7; O2SAT 92–100; BMI 23.3
[2025-02-20] MEDS: Ampicillin Sodium/Sulbactam Na 1.5 GM in 0.9 % Sodium Chloride 100 ML IV ×4 (00:36→19:45)
[2025-02-20] MEDS: 0.9 % Sodium Chloride Flush 3 ML SYRINGE IVFLUSH ×4 (00:38→20:18)
[2025-02-20 03:11] LABS: Glucose, Whole Blood 147 mg/dL (60-115)
[2025-02-20] MEDS: Albuterol/Iprat 2.5/0.5MG 3 ML AMPUL.NEB INHALE ×3 (07:45→15:23)
--- NOTE | 2025-02-20 08:21 | P.PNIM_ITS ---
Subjective Subjective Date of Service: 02/20/25 Interval History: acute toxic metabolic encephalopathy and Acute hypoxic respiratory failure due to aspiration pneumonia Review of Systems Review of Systems: Yes all other systems are reviewed and are negative Physical Exam 2 Exam: Exam: Appearance: More awake ,intermittent closes eyes ,asking for icecream cvs: rrr, [id number] res: air entry fair , somewhat diminshed at bases abd: no rebound or guarding ,nt, bs present. ext pulses present , no cyanosis . neuro: non cooperative. Vital Signs: Vital Signs: Last Vital Signs Temp 96.8 F 02/20/25 03:02 Pulse 79 02/20/25 07:46 Resp 18 02/20/25 07:46 BP 150/73 H 02/20/25 03:02 Pulse Ox 92 02/20/25 03:02 O2 Del Method Room Air 02/20/25 03:02 O2 Flow Rate 2 02/19/25 07:01 BMI result Body Mass Index 23.3 Objective Data Active Medications Acetaminophen (Acetaminophen 325 Mg Tablet) 650 mg PO Q6H PRN PRN Reason: Headache/Pain, Scale 1-10 Al Hydroxide/Mg Hydroxide (Magnesium Hydrox/Alum Hydrox 30 Ml Oral.Susp) 30 ml PO Q6H PRN PRN Reason: Heartburn/Nausea Albuterol/Ipratropium (Albuterol/Iprat 2.5/0.5mg 3 Ml Ampul.Neb) 3 ml INHALE RQ4H WHILE AWAKE [facility] Last Admin: 02/20/25 07:45 Dose: 3 ml Documented By: MEÑO Calcium Carbonate (Calcium Carbonate 750 Mg Tab.Chew) 750 mg PO Q4H PRN PRN Reason: Heartburn Clozapine (Clozapine 100 Mg Tablet) 300 mg PO TID [facility] Last Admin: 02/19/25 19:19 Dose: 300 mg Documented By: BRIDGET Dextrose (Dextrose 50 % 25 Gm/50 Ml Syringe) 25 gm IVPUSH Q15M PRN; Protocol PRN Reason: per Hypoglycemia Standing Ord. Divalproex Sodium (Divalproex Sodium 500 Mg Tablet.) 500 mg PO BID [facility] Last Admin: 02/19/25 19:35 Dose: Not Given Documented By: BRIDGET Non-Admin Reason: UNABLE TO CRUSH Docusate Sodium (Docusate Sodium 100 Mg Capsule) 100 mg PO BID [facility] Last Admin: 02/19/25 21:13 Dose: Not Given Documented By: BRIDGET Non-Admin Reason: unable to swallow Enoxaparin Sodium (Enoxaparin Sodium 40 Mg/0.4 Ml Syringe) 40 mg SUBCUT Q24H [facility] Last Admin: 02/19/25 10:50 Dose: 40 mg Documented By: HEVER Fluoxetine HCl (Fluoxetine Hcl 20 Mg Capsule) 40 mg PO BEDTIME [facility] Last Admin: 02/19/25 19:18 Dose: 40 mg Documented By: BRIDGET Glucagon (Glucagon Hcl 1 Mg Vial) 1 mg IM Q20M PRN PRN Reason: low BG Glucose (Glucose Gel 15 Gm Gel..Gram.) 15 gm PO Q15M PRN; Protocol PRN Reason: per Hypoglycemia Standing Ord. Ampicillin Sodium/Sulbactam (Sodium 1.5 gm/ Sodium Chloride) 100 mls @ 200 mls/hr IV Q6H [facility] Last Infusion: 02/20/25 06:51 Dose: Infused Documented By: HEVER Dextrose (D5w) 1,000 mls @ 75 mls/hr IVCONT .[id number] [facility] Last Admin: 02/19/25 22:55 Dose: 75 mls/hr Documented By: BRIDGET Insulin Glargine (Insulin Glargine,Hum.Rec.Anlog 100 Unit/Ml 10 Ml Vial) 24 unit SUBCUT DAILY [facility] On Hold: 02/18/25 20:34 Last Admin: 02/18/25 09:21 Dose: Not Given Documented By: SRINIVASA Non-Admin Reason: not eating Insulin Human Lispro (Insulin Lispro 100 Unit/Ml 3 Ml Vial) 0 unit SUBCUT Q6H [facility]; Protocol Last Admin: 02/20/25 03:18 Dose: Not Given Documented By: BRIDGET Non-Admin Reason: No Insulin Coverage Magnesium Hydroxide (Milk Of Magnesia 30 Ml Oral.Susp) 30 ml PO DAILY PRN PRN Reason: Constipation Magnesium Hydroxide (Milk Of Magnesia 30 Ml Oral.Susp) 30 ml PO DAILY PRN PRN Reason: Constipation Melatonin (Melatonin 3 Mg Tablet) 6 mg PO BEDTIME PRN PRN Reason: Insomnia Metoprolol Tartrate (Metoprolol Tartrate 12.5 Mg Halftab) 12.5 mg PO BID [facility]; Protocol Last Admin: 02/19/25 19:19 Dose: 12.5 mg Documented By: BRIDGET Omeprazole (Omeprazole 20 Mg Capsule.Dr) 20 mg PO DAILY@0630 [facility] Last Admin: 02/20/25 04:59 Dose: Not Given Documented By: BRIDGET Non-Admin Reason: unable to crush Perphenazine (Perphenazine 2 Mg Tablet) 2 mg PO BID [facility] Last Admin: 02/19/25 19:19 Dose: 2 mg Documented By: BRIDGET Perphenazine (Perphenazine 4 Mg Tablet) 4 mg PO BID [facility] Last Admin: 02/19/25 19:19 Dose: 4 mg Documented By: BRIDGET Senna (Sennosides 8.6 Mg Tablet) 8.6 mg PO DAILY [facility] Last Admin: 02/19/25 11:12 Dose: Not Given Documented By: HEVER Non-Admin Reason: NPO Sodium Biphosphate/Sodium Phosphate (Sodium Phosphate,[place]-Dibasic 133 Ml Enema) 133 ml [place] DAILY PRN PRN Reason: Constipation Sodium Chloride (0.9 % Sodium Chloride Flush 3 Ml Syringe) 3 ml IVFLUSH QSHIFT [facility] Last Admin: 02/20/25 00:38 Dose: 3 ml Documented By: BRIDGET Trazodone HCl (Trazodone Hcl 50 Mg Tablet) 50 mg PO BEDTIME MRX1 PRN PRN Reason: Insomnia Labs 02/17/25 04:55 02/19/25 08:44 Labs: Laboratory Results - last 24 hr 02/19/25 02/19/25 02/19/25 08:44 09:16 14:46 Anion Gap 10 L Estim Creat Clear Calc 115.5 Estimated GFR > 60 POC Glucose 156 H 175 H Random Glucose 178 H Calcium 8.7 02/19/25 02/20/25 20:41 03:05 Anion Gap Estim Creat Clear Calc Estimated GFR POC Glucose 167 H 147 H Random Glucose Calcium Assessment and Plan (1) Pneumonia: Status: Acute (2) Hypoxia: Status: Acute Assessment and Plan: 69M PMH schizoaffective disorder with psychotic features, major depressive disorder, diabetes, GERD presented to the ED on 02/14/2025 for multiple falls. became hypoxic on 02/16/25 acute toxic metabolic encephalopathy and Acute hypoxic respiratory failure due to aspiration pneumonia Overnight likely had aspiration? IV Unasyn, blood cultures neg@24hrs, wean O2 as tolerated, aspiration precautions, continue to wean as tolerated, goal saturation 91-94 Seen by speech and swallow-purred /nector thick. po intake is low ,will add ppn Schizoaffective disorder with psychotic features si clozapine levels Continued Depakote, Trilafon, psych/care team prior to discharge. Diabetes Basal bolus insulin DVT prophylaxis with Lovenox Full Code reason for continued hospitalization:still hypoxic ,intermittent weak/dec po intake, awaiting cultures,ivf ,iv antibiotics. Quality Stroke Does the patient have a stroke diagnosis?: No VTE Prior VTE?: No VTE Risk Level:: Medical - moderate - high VTE Device Contraindication: Treatment Not Indicated VTE Drug Contraindication: N/A - Med Ordered
[2025-02-20 09:41] LABS: Glucose, Whole Blood 163 mg/dL (60-115)
[2025-02-20 13:18] LABS: Clozapine (Clozaril) 133 mcg/L
--- NOTE | 2025-02-20 13:47 | MHC.SLORD ---
Speech Language Pathology Order Status: Patient somnolent today, not waking on attempt to see to assess toleration of diet/aspiration risk. MD, RN, RD advised, concern for lack of consistent po nutrition/hydration source for multiple days.
--- NOTE | 2025-02-20 14:22 | MHC.CLN ---
CONSULT PT TO START PPN R/T PROLONGED POOR PO INTAKE REVIEWED LABS DISCUSSED WITH PHARM AND MD PPN TO START 02/21/25 AT 60ML/HR TO PROVIDE 734KCALS, 144G DEXTROSE, 61G PROTEIN REPLETE LYTES NEEDED CHECK TRIGS 02/22/25 RECOMMEND INCREASING PPN TO MAX GOAL RATE 80ML/HR WITH 91G LIPIDS TO PROVIDE 1889 TOTAL KCALS (28KCALS/KG), 192G DEXTROSE, 82G PROTEIN (1.2G/KG) REPLETE LYTES NEEDED RD CAN BE REACHED VIA [employer] DURING OFF HOURS IF NEEDED SEE FULL ASSESSMENT
--- NOTE | 2025-02-20 14:24 | MHC.CM.PN ---
Per MD rounds patient is not medically cleared to discharge today. DP [facility] via BLS
[2025-02-20 16:07] LABS: Hematocrit 37.3 % (42.0-52.0); Hemoglobin 13.2 g/dl (14.0-18.0); Mean Corpuscular HGB Conc 35.4 g/dl (31.0-36.0); Mean Corpuscular Hemoglobin 30.9 pg (27.0-33.0); Mean Corpuscular Volume 87.4 fL (80.0-98.0); NRBC Abs Auto 0.000 X10*3/uL (0.0-0.012); NRBC Pct Auto 0.0 /100WBC (0.0-0.2); Platelet Count 148 X10*3/uL (160-400); Red Blood Count 4.27 X10*6/uL (4.60-5.80); White Blood Count 4.5 X10*3/uL (4.8-10.8)
[2025-02-20 16:09] LABS: VBG HCO3 28 mmol/L (22-26); VBG O2 % Saturation 90.0 %
[2025-02-20 16:09] LABS: Venous Blood Gas Refer to POC result
--- NOTE | 2025-02-20 16:17 | P.CNPS_ITS ---
History of Present Illness Date of Service: 02/20/25 Chief Complaint: Aspiration pneumonia Reason for Consult: med management Requesting physician: Colleen Burns Discussed with referring provider: Yes Sources of Information: patient interviewed and chart reviewed HPI Narrative: Patient is a 69 year old male with hx of schizoaffective disorder with psychotic features,Alzheimer's dementia, diabetes, GERD presented to the ED on 02/14/2025 from [facility] for multiple falls. became hypoxic on 02/16/25. Psychiatric consult for: medication management During psychiatric assessment, pt oriented to self and place. Opening eyes at times. Difficult to understand at times d/t mumbled and low volume speech. Calm and cooperative during conversation. poor historian. Patient reports he is in the hospital because I need a doctor ; pt was unable to discuss why he came into the hospital. Per MD, pt has been closing his eyes and not speaking to staff at times during the day; when asked about this, pt stated, I close my eyes because I'm agoraphobic and I don't want to be around people. I don't want to see people . Flight of ideas at times; pt stating mid-conversation, 23 is 3 more than 20. Women are men and men are women . Patient reports he ate lunch today and will try to eat dinner this evening. He did not appear to be responding to internal stimuli during conversation. Past Psychiatric History: Not able to obtain due to current mental status Medical Evaluation Reviewed: Yes [facility] Medical History Schizoaffective disorder Family History: Not able to obtain due to current mental status Social History: report he is single, never and has no children Trauma History: Not able to obtain due to current mental status Diagnostics Vital Signs (24Hr): Vital Signs - 24 hr 02/19/25 19:00 02/19/25 19:33 02/19/25 23:45 Temperature 97.9 F 97.2 F Pulse Rate 81 95 88 Respiratory Rate 18 18 18 Blood Pressure 154/72 H 148/79 H Pulse Oximetry 97 97 Oxygen Delivery Method Room Air Room Air 02/20/25 03:02 02/20/25 07:46 02/20/25 08:00 Temperature 96.8 F 97.6 F Pulse Rate 69 79 92 Respiratory Rate 18 18 20 Blood Pressure 150/73 H 167/72 H Pulse Oximetry 92 100 Oxygen Delivery Method Room Air Room Air 02/20/25 11:46 02/20/25 12:23 02/20/25 15:25 Temperature 97.2 F Pulse Rate 84 94 77 Respiratory Rate 18 14 18 Blood Pressure 162/76 H Pulse Oximetry 98 Oxygen Delivery Method Room Air 02/20/25 15:48 Temperature 97.8 F Pulse Rate 94 Respiratory Rate 18 Blood Pressure 140/68 H Pulse Oximetry 98 Oxygen Delivery Method Room Air BMI result Body Mass Index 23.3 Labs 02/17/25 04:55 02/19/25 08:44 Labs: Laboratory Results - last 48 hr 02/17/25 02/18/25 02/18/25 08:09 18:54 19:44 VBG pH VBG pCO2 VBG pO2 VBG HCO3 VBG O2 Saturation VBG Base Excess Sodium 145 Potassium 3.8 Chloride 110 H Carbon Dioxide 27 Anion Gap 12 BUN 9 Creatinine 0.65 Estim Creat Clear Calc 103.1 Estimated GFR > 60 POC Glucose 116 H Random Glucose 129 H Calcium 8.8 Clozapine 133 Norclozapine 50 02/19/25 02/19/25 02/19/25 03:15 08:44 09:16 VBG pH VBG pCO2 VBG pO2 VBG HCO3 VBG O2 Saturation VBG Base Excess Sodium 140 Potassium 4.5 Chloride 110 H Carbon Dioxide 25 Anion Gap 10 L BUN 10 Creatinine 0.58 Estim Creat Clear Calc 115.5 Estimated GFR > 60 POC Glucose 140 H 156 H Random Glucose 178 H Calcium 8.7 Clozapine Norclozapine 02/19/25 02/19/25 02/20/25 14:46 20:41 03:05 VBG pH VBG pCO2 VBG pO2 VBG HCO3 VBG O2 Saturation VBG Base Excess Sodium Potassium Chloride Carbon Dioxide Anion Gap BUN Creatinine Estim Creat Clear Calc Estimated GFR POC Glucose 175 H 167 H 147 H Random Glucose Calcium Clozapine Norclozapine 02/20/25 02/20/25 09:36 16:06 VBG pH 7.49 H VBG pCO2 37 VBG pO2 64 VBG HCO3 28 H VBG O2 Saturation 90.0 VBG Base Excess 5.2 Sodium Potassium Chloride Carbon Dioxide Anion Gap BUN Creatinine Estim Creat Clear Calc Estimated GFR POC Glucose 163 H Random Glucose Calcium Clozapine Norclozapine Imaging Radiology Impressions: ITS Impressions Chest X-Ray 02/16/25 15:27 IMPRESSION: Left basilar atelectasis, pneumonia not excluded Electronically signed by: Nick Montana MD 02/16/2025 03:39 PM EDT RP Mental Status Exam Mental Status Exam Patient Appearance: Appropriate Patient Orientation: Person and Place Level of Consciousness: Awake Patient Behavior: Cooperative and Poor Eye Contact Mood Description: Calm Affect Description: Blunted Ability to Follow Directions: Good Speech Pattern: Soft-Spoken and Mumbled Hallucinations: None Thought Process: Disoriented Thought Content: positive for Flight of Ideas and positive for Disoriented Judgement: Poor Medications Medications Current Medications Acetaminophen (Acetaminophen 325 Mg Tablet) 650 mg PO Q6H PRN PRN Reason: Headache/Pain, Scale 1-10 Al Hydroxide/Mg Hydroxide (Magnesium Hydrox/Alum Hydrox 30 Ml Oral.Susp) 30 ml PO Q6H PRN PRN Reason: Heartburn/Nausea Albuterol/Ipratropium (Albuterol/Iprat 2.5/0.5mg 3 Ml Ampul.Neb) 3 ml INHALE RQ4H WHILE AWAKE [facility] Last Admin: 02/20/25 15:23 Dose: 3 ml Calcium Carbonate (Calcium Carbonate 750 Mg Tab.Chew) 750 mg PO Q4H PRN PRN Reason: Heartburn Clozapine (Clozapine 100 Mg Tablet) 300 mg PO TID [facility] Last Admin: 02/20/25 16:15 Dose: 300 mg Dextrose (Dextrose 50 % 25 Gm/50 Ml Syringe) 25 gm IVPUSH Q15M PRN; Protocol PRN Reason: per Hypoglycemia Standing Ord. Divalproex Sodium (Divalproex Sodium 500 Mg Tablet.Dr) 500 mg PO BID [facility] Last Admin: 02/20/25 09:31 Dose: Not Given Docusate Sodium (Docusate Sodium 100 Mg Capsule) 100 mg PO BID [facility] Last Admin: 02/20/25 09:31 Dose: Not Given Enoxaparin Sodium (Enoxaparin Sodium 40 Mg/0.4 Ml Syringe) 40 mg SUBCUT Q24H [facility] Last Admin: 02/20/25 09:06 Dose: 40 mg Fluoxetine HCl (Fluoxetine Hcl 20 Mg Capsule) 40 mg PO BEDTIME [facility] Last Admin: 02/19/25 19:18 Dose: 40 mg Glucagon (Glucagon Hcl 1 Mg Vial) 1 mg IM Q20M PRN PRN Reason: low BG Glucose (Glucose Gel 15 Gm Gel..Gram.) 15 gm PO Q15M PRN; Protocol PRN Reason: per Hypoglycemia Standing Ord. Ampicillin Sodium/Sulbactam (Sodium 1.5 gm/ Sodium Chloride) 100 mls @ 200 mls/hr IV Q6H [facility] Last Infusion: 02/20/25 12:58 Dose: Infused Dextrose (D5w) 1,000 mls @ 75 mls/hr IVCONT .[id number] [facility] Last Admin: 02/20/25 12:29 Dose: 75 mls/hr Insulin Glargine (Insulin Glargine,Hum.Rec.Anlog 100 Unit/Ml 10 Ml Vial) 24 unit SUBCUT DAILY [facility] On Hold: 02/18/25 20:34 Last Admin: 02/18/25 09:21 Dose: Not Given Insulin Human Lispro (Insulin Lispro 100 Unit/Ml 3 Ml Vial) 0 unit SUBCUT Q6H [facility]; Protocol Last Admin: 02/20/25 09:56 Dose: 2 unit Magnesium Hydroxide (Milk Of Magnesia 30 Ml Oral.Susp) 30 ml PO DAILY PRN PRN Reason: Constipation Magnesium Hydroxide (Milk Of Magnesia 30 Ml Oral.Susp) 30 ml PO DAILY PRN PRN Reason: Constipation Melatonin (Melatonin 3 Mg Tablet) 6 mg PO BEDTIME PRN PRN Reason: Insomnia Metoprolol Tartrate (Metoprolol Tartrate 12.5 Mg Halftab) 12.5 mg PO BID [facility]; Protocol Last Admin: 02/20/25 09:33 Dose: Not Given Omeprazole (Omeprazole 20 Mg Capsule.Dr) 20 mg PO DAILY@0630 [facility] Last Admin: 02/20/25 04:59 Dose: Not Given Perphenazine (Perphenazine 2 Mg Tablet) 2 mg PO BID [facility] Last Admin: 02/20/25 09:33 Dose: Not Given Perphenazine (Perphenazine 4 Mg Tablet) 4 mg PO BID [facility] Last Admin: 02/20/25 09:34 Dose: Not Given Pharmacy Consult (Consult Rx Parenteral Nutrition Ordering) 1 each MISCELLANE DAILY PRN PRN Reason: Consult order Senna (Sennosides 8.6 Mg Tablet) 8.6 mg PO DAILY [facility] Last Admin: 02/20/25 09:34 Dose: Not Given Sodium Biphosphate/Sodium Phosphate (Sodium Phosphate,[place]-Dibasic 133 Ml Enema) 133 ml NM DAILY PRN PRN Reason: Constipation Sodium Chloride (0.9 % Sodium Chloride Flush 3 Ml Syringe) 3 ml IVFLUSH QSHIFT [facility] Last Admin: 02/20/25 09:11 Dose: 3 ml Trazodone HCl (Trazodone Hcl 50 Mg Tablet) 50 mg PO BEDTIME MRX1 PRN PRN Reason: Insomnia Allergies Allergies Allergy/AdvReac Type Severity Reaction Status Date / Time No Known Allergies Allergy Verified 02/14/25 08:42 Assessment & Plan Assessment & Plan (1) Schizoaffective disorder: Status: Acute Code(s): F25.9 - Schizoaffective disorder, unspecified (2) Alzheimer's dementia: Status: Acute Code(s): G30.9 - Alzheimer's disease, unspecified; F02.80 - Dementia in other diseases classified elsewhere, unspecified severity, without behavioral disturbance, psychotic disturbance, mood disturbance, and anxiety Plan Recommendation: -Continue home psychiatric medications; would not change home medications at this time. -patient is currently not on his home medication of Valium 3mg PO BID; would restart on lower dose to prevent benzodiazepine withdrawal and help with decreasing anxiety/agitation. Total time managing care of this patient today _20___ minutes. Patient educated on: medication risk/benefits
[2025-02-20 16:21] LABS: Ammonia 32 umol/L (13-55)
[2025-02-20 16:21] LABS: Alanine Aminotransferase 13 U/L (0-40); Albumin Level 3.2 g/dL (3.5-5.0); Alkaline Phosphatase 95 U/L (39-117); Anion Gap 11 (12-20); Aspartate Amino Transferase 35 U/L (5-37); Blood Urea Nitrogen 6 mg/dL (9-16); Calcium 8.9 mg/dL (8.4-10.2); Carbon Dioxide 27 mmol/L (22-29); Chloride 109 mmol/L (96-108); Creatinine Clr Calc Pharmacy 119.6; Estimated Glomerular Filt Rate > 60; Potassium 3.3 mmol/L (3.3-5.1); Sodium 144 mmol/L (135-145); Total Protein 6.3 g/dL (6.5-8.0)
[2025-02-20 16:22] LABS: Glucose, Whole Blood 172 mg/dL (60-115)
--- NOTE | 2025-02-20 16:45 | HO.WOUND ---
Wound Consult: Initial 69yr old? admitted to [facility] 02/16/25 18:06- See progress notes and H&P for detailed history.? Patient skin assessed during P&I Data collection and noted for Right heel redness - Stage 1 Pressure Injury. ? Right Heel Etiology: ??Stage 1 Pressure Injury Measurements: 0.5cm x 0.2cm x 0cm Wound Bed: red pink nonblanchable tissue Drainage / Odor: None Edges: ? attached Coco wound: pink blanchable tissue ? No Induration, Fluctuance or Warmth noted Goals of Treatment: ? Off load pressure - skin prep applied along with foam dressing Recommendations: 1. Turn and Reposition every 2 hours and as needed for patient comfort.? Use pillows or wedges to support off loading positions. 2. Off Load all bony prominences with use of pillows and heel boots if needed.? Apply Preventative foams where needed. ? 3. Monitor for incontinence and moisture control, use barrier creams when needed for prevention and treatment. 4. Provide adequate and supplemental nutrition.? 5. Order or Continue low air loss mattress. 6. When applicable maintain blood glucose levels per Providers order. Bilateral Heels? - Elevate heels off of bed surface with pillows.? Float heels off of pillows.? Apply skin prep allow to dry.? Apply heel foam dressings, peel back and assess Q shift and change every 3 days and PRN. Re-consult wound care Nurse for wound deterioration or wound changes.
[2025-02-20] MEDS: Metoprolol Tartrate 12.5 MG HALFTAB PO (20:17)
[2025-02-20 20:39] LABS: Glucose, Whole Blood 150 mg/dL (60-115)
[2025-02-21 00:09] VITALS: BP 156/89; PULSE 100; RESP 17; TEMP 36.8; O2SAT 96
[2025-02-21] MEDS: Ampicillin Sodium/Sulbactam Na 1.5 GM in 0.9 % Sodium Chloride 100 ML IV ×3 (00:49→13:55)
[2025-02-21 02:17] LABS: Glucose, Whole Blood 149 mg/dL (60-115)
[2025-02-21 03:40] VITALS: BP 124/64; PULSE 68; RESP 16; TEMP 36.6; O2SAT 93
[2025-02-21 07:05] LABS: Triglycerides 191 mg/dL (<150)
[2025-02-21 07:07] LABS: Albumin Level 3.0 g/dL (3.5-5.0); Anion Gap 12 (12-20); Blood Urea Nitrogen 6 mg/dL (9-16); Calcium 8.9 mg/dL (8.4-10.2); Carbon Dioxide 28 mmol/L (22-29); Chloride 108 mmol/L (96-108); Creatinine Clr Calc Pharmacy 119.6; Estimated Glomerular Filt Rate > 60; Magnesium 1.7 mg/dL (1.6-2.6); Potassium 3.1 mmol/L (3.3-5.1); Sodium 145 mmol/L (135-145)
--- NOTE | 2025-02-21 07:50 | HO.PM.IMPN ---
Subjective Subjective Date of Service: 02/21/25 Interval History: aspiration pneumonia Review of Systems awake saying bad remarks. Review of Systems: Yes all other systems are reviewed and are negative Physical Exam Exam: Exam: Appearance: More awake ,intermittent closes eyes ,asking for icecream cvs: rrr, [id number] res: air entry fair , somewhat diminshed at bases abd: no rebound or guarding ,nt, bs present. ext pulses present , no cyanosis . neuro: non cooperative. Vital Signs: Vital Signs: Last Vital Signs Temp 97.8 F 02/21/25 03:40 Pulse 68 02/21/25 03:40 Resp 16 02/21/25 03:40 BP 124/64 02/21/25 03:40 Pulse Ox 93 02/21/25 03:40 O2 Del Method Room Air 02/21/25 03:40 O2 Flow Rate 2 02/19/25 07:01 BMI result Body Mass Index 23.3 Objective Data Active Medications Acetaminophen (Acetaminophen 325 Mg Tablet) 650 mg PO Q6H PRN PRN Reason: Headache/Pain, Scale 1-10 Al Hydroxide/Mg Hydroxide (Magnesium Hydrox/Alum Hydrox 30 Ml Oral.Susp) 30 ml PO Q6H PRN PRN Reason: Heartburn/Nausea Albuterol/Ipratropium (Albuterol/Iprat 2.5/0.5mg 3 Ml Ampul.Neb) 3 ml INHALE RQ4H WHILE AWAKE [facility] Last Admin: 02/20/25 19:32 Dose: Not Given Documented By: RY Non-Admin Reason: pt confused, upset and refusing tx Calcium Carbonate (Calcium Carbonate 750 Mg Tab.Chew) 750 mg PO Q4H PRN PRN Reason: Heartburn Clozapine (Clozapine 100 Mg Tablet) 300 mg PO TID [facility] Last Admin: 02/20/25 20:17 Dose: 300 mg Documented By: PAPITO Dextrose (Dextrose 50 % 25 Gm/50 Ml Syringe) 25 gm IVPUSH Q15M PRN; Protocol PRN Reason: per Hypoglycemia Standing Ord. Divalproex Sodium (Divalproex Sodium 500 Mg Tablet.) 500 mg PO BID [facility] Last Admin: 02/20/25 20:17 Dose: 500 mg Documented By: PAPITO Docusate Sodium (Docusate Sodium 100 Mg Capsule) 100 mg PO BID [facility] Last Admin: 02/20/25 20:17 Dose: 100 mg Documented By: PAPITO Enoxaparin Sodium (Enoxaparin Sodium 40 Mg/0.4 Ml Syringe) 40 mg SUBCUT Q24H [facility] Last Admin: 02/20/25 09:06 Dose: 40 mg Documented By: HEVER Fluoxetine HCl (Fluoxetine Hcl 20 Mg Capsule) 40 mg PO BEDTIME [facility] Last Admin: 02/20/25 20:17 Dose: 40 mg Documented By: PAPITO Glucagon (Glucagon Hcl 1 Mg Vial) 1 mg IM Q20M PRN PRN Reason: low BG Glucose (Glucose Gel 15 Gm Gel..Gram.) 15 gm PO Q15M PRN; Protocol PRN Reason: per Hypoglycemia Standing Ord. Ampicillin Sodium/Sulbactam (Sodium 1.5 gm/ Sodium Chloride) 100 mls @ 200 mls/hr IV Q6H [facility] Last Infusion: 02/21/25 07:00 Dose: Infused Documented By: PAPITO Insulin Glargine (Insulin Glargine,Hum.Rec.Anlog 100 Unit/Ml 10 Ml Vial) 24 unit SUBCUT DAILY [facility] On Hold: 02/18/25 20:34 Last Admin: 02/18/25 09:21 Dose: Not Given Documented By: SRINIVASA Non-Admin Reason: not eating Insulin Human Lispro (Insulin Lispro 100 Unit/Ml 3 Ml Vial) 0 unit SUBCUT Q6H [facility]; Protocol Last Admin: 02/21/25 04:35 Dose: Not Given Documented By: PAPITO Non-Admin Reason: No Insulin Coverage Magnesium Hydroxide (Milk Of Magnesia 30 Ml Oral.Susp) 30 ml PO DAILY PRN PRN Reason: Constipation Magnesium Hydroxide (Milk Of Magnesia 30 Ml Oral.Susp) 30 ml PO DAILY PRN PRN Reason: Constipation Melatonin (Melatonin 3 Mg Tablet) 6 mg PO BEDTIME PRN PRN Reason: Insomnia Metoprolol Tartrate (Metoprolol Tartrate 12.5 Mg Halftab) 12.5 mg PO BID [facility]; Protocol Last Admin: 02/20/25 20:17 Dose: 12.5 mg Documented By: PAPITO Omeprazole (Omeprazole 20 Mg Capsule.) 20 mg PO DAILY@0630 [facility] Last Admin: 02/21/25 05:51 Dose: 20 mg Documented By: PAPITO Perphenazine (Perphenazine 2 Mg Tablet) 2 mg PO BID [facility] Last Admin: 02/20/25 20:17 Dose: 2 mg Documented By: PAPITO Perphenazine (Perphenazine 4 Mg Tablet) 4 mg PO BID [facility] Last Admin: 02/20/25 20:17 Dose: 4 mg Documented By: PAPITO Pharmacy Consult (Consult Rx Parenteral Nutrition Ordering) 1 each MISCELLANE DAILY PRN PRN Reason: Consult order Senna (Sennosides 8.6 Mg Tablet) 8.6 mg PO DAILY [facility] Last Admin: 02/20/25 09:34 Dose: Not Given Documented By: HEVER Non-Admin Reason: Patient Refused Sodium Biphosphate/Sodium Phosphate (Sodium Phosphate,[place]-Dibasic 133 Ml Enema) [address] DAILY PRN PRN Reason: Constipation Sodium Chloride (0.9 % Sodium Chloride Flush 3 Ml Syringe) 3 ml IVFLUSH QSHIFT [facility] Last Admin: 02/20/25 20:18 Dose: 3 ml Documented By: PAPITO Trazodone HCl (Trazodone Hcl 50 Mg Tablet) 50 mg PO BEDTIME MRX1 PRN PRN Reason: Insomnia Labs 02/20/25 15:55 02/21/25 05:48 Labs: Laboratory Results - last 24 hr 02/17/25 02/20/25 02/20/25 08:09 09:36 15:55 MCV 87.4 MCH 30.9 MCHC 35.4 RDW 13.8 Plt Count 148 L MPV 8.7 L Absolute Nucleated RBC 0.000 Nucleated RBC % (auto) 0.0 VBG pH VBG pCO2 VBG pO2 VBG HCO3 VBG O2 Saturation VBG Base Excess Anion Gap 11 L Estim Creat Clear Calc 119.6 Estimated GFR > 60 POC Glucose 163 H Random Glucose 178 H Calcium 8.9 Phosphorus Magnesium Total Bilirubin 0.4 AST 35 ALT 13 Alkaline Phosphatase 95 Ammonia Total Protein 6.3 L Albumin 3.2 L Triglycerides Valproic Acid Clozapine 133 Norclozapine 50 02/20/25 02/20/25 02/20/25 16:06 16:09 16:18 MCV MCH MCHC RDW Plt Count MPV Absolute Nucleated RBC Nucleated RBC % (auto) VBG pH 7.49 H VBG pCO2 37 VBG pO2 64 VBG HCO3 28 H VBG O2 Saturation 90.0 VBG Base Excess 5.2 Anion Gap Estim Creat Clear Calc Estimated GFR POC Glucose 172 H Random Glucose Calcium Phosphorus Magnesium Total Bilirubin AST ALT Alkaline Phosphatase Ammonia 32 Total Protein Albumin Triglycerides Valproic Acid Clozapine Norclozapine 02/20/25 02/21/25 02/21/25 20:30 02:12 05:48 MCV MCH MCHC RDW Plt Count MPV Absolute Nucleated RBC Nucleated RBC % (auto) VBG pH VBG pCO2 VBG pO2 VBG HCO3 VBG O2 Saturation VBG Base Excess Anion Gap 12 Estim Creat Clear Calc 119.6 Estimated GFR > 60 POC Glucose 150 H 149 H Random Glucose 131 H Calcium 8.9 Phosphorus 2.9 Magnesium 1.7 Total Bilirubin AST ALT Alkaline Phosphatase Ammonia Total Protein Albumin 3.0 L Triglycerides 191 H Valproic Acid < 12.5 L Clozapine Norclozapine Assessment and Plan (1) Pneumonia: Status: Acute (2) Hypoxia: Status: Acute Assessment and Plan: 69M PMH schizoaffective disorder with psychotic features, major depressive disorder, diabetes, GERD presented to the ED on 02/14/2025 for multiple falls. became hypoxic on 02/16/25 acute toxic metabolic encephalopathy and Acute hypoxic respiratory failure due to aspiration pneumonia Overnight likely had aspiration? IV Unasyn, blood cultures neg@24hrs, wean O2 as tolerated, aspiration precautions, continue to wean as tolerated, goal saturation 91-94 Seen by speech and swallow-purred /nector thick. po intake is low ,will add ppn Schizoaffective disorder with psychotic features si clozapine levels Continued Depakote, Trilafon, psych/care team prior to discharge. Diabetes Basal bolus insulin DVT prophylaxis with Lovenox Full Code reason for continued hospitalization:still hypoxic ,intermittent weak/dec po intake, awaiting cultures,ivf ,iv antibiotics. Quality Stroke Does the patient have a stroke diagnosis?: No VTE Prior VTE?: No VTE Risk Level:: Medical - moderate - high VTE Device Contraindication: Treatment Not Indicated VTE Drug Contraindication: N/A - Med Ordered
--- NOTE | 2025-02-21 09:43 | PC.NURSE ---
pt combative; hitting staff, difficult to redirect, sitter present. Pt refused vital signs and POC checks, pt refused AM meds despite multiple attempts and encouragement. notified.
[2025-02-21 14:59] VITALS: PULSE 100; RESP 16; O2SAT 98
[2025-02-21] MEDS: Albuterol/Iprat 2.5/0.5MG 3 ML AMPUL.NEB INHALE (14:59)
[2025-02-21 17:32] LABS: Glucose, Whole Blood 129 mg/dL (60-115)
[2025-02-21] MEDS: OLANZapine 10 MG VIAL 5 MG IM (17:32)
[2025-02-21 20:00] VITALS: BP 152/85; PULSE 149; RESP 16; TEMP 36.5; O2SAT 98
[2025-02-21 20:38] LABS: Glucose, Whole Blood 112 mg/dL (60-115)
--- NOTE | 2025-02-22 | ECG_ITS ---
Test Reason : qtc check Blood Pressure : */* mmHG Vent. Rate : 111 BPM Atrial Rate : 111 BPM P-R Int : 138 ms QRS Dur : 80 ms QT Int : 388 ms P-R-T Axes : 64 -15 51 degrees QTcB Int : 527 ms Sinus tachycardia Nonspecific ST and T wave abnormality Abnormal ECG When compared with ECG of 18-Feb-2025 02:37, Nonspecific T wave abnormality now evident in Inferior leads Nonspecific T wave abnormality now evident in Lateral leads Referred By: Colleen Burns Electronically Signed By: Deon Shin
[2025-02-22] MEDS: Ampicillin Sodium/Sulbactam Na 1.5 GM in 0.9 % Sodium Chloride 100 ML IV ×4 (00:27→18:26)
[2025-02-22] MEDS: Parenteral Nutrition 1,440 ML 60 ML IV (01:02)
[2025-02-22 01:59] LABS: Glucose, Whole Blood 132 mg/dL (60-115)
[2025-02-22 03:43] VITALS: BP 169/74; PULSE 70; RESP 17; O2SAT 96
[2025-02-22 08:00] VITALS: BP 154/87; PULSE 105; RESP 16; O2SAT 100
[2025-02-22 08:10] LABS: Albumin Level 3.1 g/dL (3.5-5.0); Anion Gap 12 (12-20); Blood Urea Nitrogen 10 mg/dL (9-16); Calcium 9.1 mg/dL (8.4-10.2); Carbon Dioxide 27 mmol/L (22-29); Chloride 110 mmol/L (96-108); Creatinine Clr Calc Pharmacy 108.0; Estimated Glomerular Filt Rate > 60; Magnesium 1.9 mg/dL (1.6-2.6); Potassium 3.5 mmol/L (3.3-5.1); Sodium 145 mmol/L (135-145)
[2025-02-22 08:29] LABS: Glucose, Whole Blood 229 mg/dL (60-115)
[2025-02-22] MEDS: Metoprolol Tartrate 12.5 MG HALFTAB PO ×2 (08:31→22:06)
[2025-02-22] MEDS: Valproic Acid (as Sodium Salt) 500 MG in Dextrose 5 % 50 ML 52.5 MG IV ×2 (09:29→22:07)
[2025-02-22 11:50] LABS: Glucose, Whole Blood 204 mg/dL (60-115)
--- NOTE | 2025-02-22 13:25 | HO.PM.IMPN ---
Subjective Subjective Date of Service: 02/22/25 Interval History: dec po intake ,behviour agiatation Review of Systems refused treatements /care , behaviour agiattaion also refused po intake ,vitals . Physical Exam Exam: Exam: Appearance: More awake ,intermittent closes eyes ,asking for icecream cvs: rrr, [id number] res: air entry fair , somewhat diminshed at bases abd: no rebound or guarding ,nt, bs present. ext pulses present , no cyanosis . neuro: non cooperative. Vital Signs: Vital Signs: Last Vital Signs Temp 97.7 F 02/21/25 20:00 Pulse 105 H 02/22/25 08:00 Resp 16 02/22/25 08:00 BP 154/87 H 02/22/25 08:00 Pulse Ox 100 02/22/25 08:00 O2 Del Method Room Air 02/22/25 08:00 O2 Flow Rate 2 02/19/25 07:01 BMI result Body Mass Index 23.3 Objective Data Active Medications Acetaminophen (Acetaminophen 325 Mg Tablet) 650 mg PO Q6H PRN PRN Reason: Headache/Pain, Scale 1-10 Al Hydroxide/Mg Hydroxide (Magnesium Hydrox/Alum Hydrox 30 Ml Oral.Susp) 30 ml PO Q6H PRN PRN Reason: Heartburn/Nausea Albuterol/Ipratropium (Albuterol/Iprat 2.5/0.5mg 3 Ml Ampul.Neb) 3 ml INHALE RQ4H WHILE AWAKE [facility] Last Admin: 02/22/25 11:18 Dose: Not Given Documented By: EMIL Non-Admin Reason: Medication Discontinued Calcium Carbonate (Calcium Carbonate 750 Mg Tab.Chew) 750 mg PO Q4H PRN PRN Reason: Heartburn Clozapine (Clozapine 100 Mg Tablet) 300 mg PO TID [facility] Last Admin: 02/22/25 08:31 Dose: 300 mg Documented By: ROBBY Dextrose (Dextrose 50 % 25 Gm/50 Ml Syringe) 25 gm IVPUSH Q15M PRN; Protocol PRN Reason: per Hypoglycemia Standing Ord. Diazepam (Diazepam 2 Mg Tablet) 1 mg PO TID [facility] Last Admin: 02/22/25 08:31 Dose: 1 mg Documented By: ROBBY Docusate Sodium (Docusate Sodium 100 Mg Capsule) 100 mg PO BID [facility] Last Admin: 02/22/25 08:39 Dose: Not Given Documented By: ROBBY Non-Admin Reason: cant be crushed Enoxaparin Sodium (Enoxaparin Sodium 40 Mg/0.4 Ml Syringe) 40 mg SUBCUT Q24H NATE Last Admin: 02/22/25 08:32 Dose: 40 mg Documented By: ROBBY Fluoxetine HCl (Fluoxetine Hcl 20 Mg Capsule) 40 mg PO BEDTIME NATE Last Admin: 02/21/25 22:23 Dose: Not Given Documented By: PAPITO Non-Admin Reason: pt refused Glucagon (Glucagon Hcl 1 Mg Vial) 1 mg IM Q20M PRN PRN Reason: low BG Glucose (Glucose Gel 15 Gm Gel..Gram.) 15 gm PO Q15M PRN; Protocol PRN Reason: per Hypoglycemia Standing Ord. Ampicillin Sodium/Sulbactam (Sodium 1.5 gm/ Sodium Chloride) 100 mls @ 200 mls/hr IV Q6H NATE Last Infusion: 02/22/25 13:14 Dose: Infused Documented By: ROBBY Nutrition (Parenteral) (Parenteral Nutrition) 1,440 mls @ 60 mls/hr IV .Q24H NATE; Protocol Stop: 02/22/25 20:59 Last Admin: 02/22/25 01:02 Dose: 60 mls/hr Documented By: PAPITO Valproic Acid 500 mg/ Dextrose 55 mls @ 52.5 mls/hr IV Q12H NATE Last Infusion: 02/22/25 11:01 Dose: Infused Documented By: ROBBY Nutrition (Parenteral) (Parenteral Nutrition) 1,920 mls @ 80 mls/hr IV .Q24H NATE; Protocol Stop: 02/23/25 20:59 Insulin Glargine (Insulin Glargine,Hum.Rec.Anlog 100 Unit/Ml 10 Ml Vial) 24 unit SUBCUT DAILY NATE On Hold: 02/18/25 20:34 Last Admin: 02/18/25 09:21 Dose: Not Given Documented By: SRINIVASA Non-Admin Reason: not eating Insulin Human Lispro (Insulin Lispro 100 Unit/Ml 3 Ml Vial) 0 unit SUBCUT Q6H NATE; Protocol Last Admin: 02/22/25 08:44 Dose: 4 unit Documented By: ROBBY Magnesium Hydroxide (Milk Of Magnesia 30 Ml Oral.Susp) 30 ml PO DAILY PRN PRN Reason: Constipation Melatonin (Melatonin 3 Mg Tablet) 6 mg PO BEDTIME PRN PRN Reason: Insomnia Metoprolol Tartrate (Metoprolol Tartrate 12.5 Mg Halftab) 12.5 mg PO BID [facility]; Protocol Last Admin: 02/22/25 08:31 Dose: 12.5 mg Documented By: ROBBY Omeprazole (Omeprazole 20 Mg Capsule.Dr) 20 mg PO DAILY@0630 [facility] Last Admin: 02/22/25 06:41 Dose: Not Given Documented By: PAPITO Non-Admin Reason: Patient Refused Perphenazine (Perphenazine 2 Mg Tablet) 2 mg PO BID [facility] Last Admin: 02/22/25 08:31 Dose: 2 mg Documented By: ROBBY Perphenazine (Perphenazine 4 Mg Tablet) 4 mg PO BID [facility] Last Admin: 02/22/25 08:31 Dose: 4 mg Documented By: ROBBY Pharmacy Consult (Consult Rx Parenteral Nutrition Ordering) 1 each MISCELLANE DAILY PRN PRN Reason: Consult order Senna (Sennosides 8.6 Mg Tablet) 8.6 mg PO DAILY [facility] Last Admin: 02/22/25 08:31 Dose: 8.6 mg Documented By: ROBBY Sodium Biphosphate/Sodium Phosphate (Sodium Phosphate,Collin-Dibasic 133 Ml Enema) 133 ml NM DAILY PRN PRN Reason: Constipation Sodium Chloride (0.9 % Sodium Chloride Flush 3 Ml Syringe) 3 ml IVFLUSH QSHIFT [facility] Last Admin: 02/22/25 08:44 Dose: Not Given Documented By: ROBBY Non-Admin Reason: IV Running Trazodone HCl (Trazodone Hcl 50 Mg Tablet) 50 mg PO BEDTIME MRX1 PRN PRN Reason: Insomnia Labs 02/22/25 13:37 02/22/25 06:25 Labs: Laboratory Results - last 24 hr 02/21/25 02/21/25 02/22/25 17:26 20:23 01:54 Hold Purple Top Anion Gap Estim Creat Clear Calc Estimated GFR POC Glucose 129 H 112 132 H Random Glucose Calcium Phosphorus Magnesium Albumin 02/22/25 02/22/25 02/22/25 06:25 08:26 11:45 Hold Purple Top SEE NOTE Anion Gap 12 Estim Creat Clear Calc 108.0 Estimated GFR > 60 POC Glucose 229 H 204 H Random Glucose 202 H Calcium 9.1 Phosphorus 2.9 Magnesium 1.9 Albumin 3.1 L Microbiology Microbiology Results: Microbiology 02/16/25 16:38 Blood Culture - Final Blood - Venous No growth after 5 days. 02/16/25 16:41 Blood Culture - Final Blood - Venous No growth after 5 days. Assessment and Plan (1) Alzheimer's dementia: Status: Acute (2) Schizoaffective disorder: Status: Acute Plan 69M PMH schizoaffective disorder with psychotic features, major depressive disorder, diabetes, GERD presented to the ED on 02/14/2025 for multiple falls. became hypoxic on 02/16/25 acute toxic metabolic encephalopathy and Acute hypoxic respiratory failure due to aspiration pneumonia IV Unasyn day 12/08. blood cultures neg@5days , wean O2 as tolerated, aspiration precautions, off oxygen, goal saturation 91-94 Seen by speech and swallow-purred /nector thick. refuses po intake is low, refuses meds,gets agitated ,passes inappropriate comments. currently on tpn. Schizoaffective disorder with psychotic features si clozapine levels intial on 02/17: 133 , norcloazpine : 50 he refuses psych medsand vital/rx plan: will repeat clozapine levels , depkote levels moniter lft, crp daily will switch depakote to iv ,also switched valium to iv. tried to give him po clozapine, also reoffer Trilafon if takes ,also added -gets agiatated. psych is aware to follow up on patient- added trop/ekg qdaily, tele may need zyprexa prn moniter closely for sedation or respiratory comprimise. psych/care team prior to discharge. Diabetes Basal bolus insulin DVT prophylaxis with Lovenox Full Code reason for continued hospitalization:intermittent weak/dec po intake, awaiting cultures,ivf ,iv antibiotics.tpn ,psych to adjust meds Quality Stroke Does the patient have a stroke diagnosis?: No VTE Prior VTE?: No VTE Risk Level:: Medical - moderate - high VTE Device Contraindication: Treatment Not Indicated VTE Drug Contraindication: N/A - Med Ordered
[2025-02-22 13:45] LABS: Baso%MD 0.4 %; Eos%MD 0.4 %; Hematocrit 36.9 % (42.0-52.0); Hemoglobin 13.1 g/dl (14.0-18.0); IG%MD 0.5 %; Lymph%MD 12.9 %; Mean Corpuscular HGB Conc 35.5 g/dl (31.0-36.0); Mean Corpuscular Hemoglobin 31.3 pg (27.0-33.0); Mean Corpuscular Volume 88.1 fL (80.0-98.0); Mono%MD 6.6 %; NRBC Abs Auto 0.000 X10*3/uL (0.0-0.012); NRBC Pct Auto 0.0 /100WBC (0.0-0.2); Neut%MD 79.2 %; Platelet Count 196 X10*3/uL (160-400); Red Blood Count 4.19 X10*6/uL (4.60-5.80); White Blood Count 7.9 X10*3/uL (4.8-10.8)
--- NOTE | 2025-02-22 13:49 | P.CNPS_ITS ---
History of Present Illness Date of Service: 02/22/25 Chief Complaint: Aspiration pneumonia Requesting physician: Colleen Burns Sources of Information: patient interviewed, chart reviewed and crisis/core team assessment reviewed HPI Narrative: Patient is a 69 year old male with hx of schizoaffective disorder with psychotic features,Alzheimer's dementia, diabetes, GERD presented to the ED on 02/14/2025 from [facility] for multiple falls; initially was going to be presented to the geriatric psychiatric unit however became hypoxic on 02/16/25 and admitted to the medical floor for aspiration pneumonia. On the medical floor patient has been intermittently refusing medications and then agitated. Patient has seen by psychiatry on 02/15 and 02/20. Psychiatry consulted again today to help assess medication regimen given p.o. refusals and agitation. On approach patient in the process of getting another IV inserted since he ripped out his existing 1; nursing staff tells me this has happened multiple times . Patient said I have been swinging all night... Patient disorganized in both speech and behavior. Pipe Layer Helper asks why he is feeling riled up and he says I do not know... If I did I had light a candle.. Pipe Layer Helper asked about why he has been refusing his psychiatric medications and refusing clozapine and patient says you just are about pills and dills and dill pickles... He then says something about real estate underwriter being a Jaborwoky... Further questions met with nonsensical answers. Regarding medication management Recommend nursing re-offer any psychiatric medications that patient initially refuses Regarding diazepam: Psychiatry was consulted on 02/20 at which time it was recommended patient be restarted on his home dose of diazepam 3 mg bid; it does not look like this was restarted and could be a part of his agitation. It has been restarted today (02/22) and perhaps this will help. Since patient is frequently refusing p.o. medications, as as long as airway remains protected, recommend continuing to use IV diazepam to help with agitation; would increase it to 3mg BID which is his home dose have extra prn available for agitation Regarding continuation of clozapine, difficult to give exact recommendations going forward since patient is intermittently refusing doses. He is currently scheduled on home dose of clozapine 300 mg t.i.d. 02/15 took clozapine 300 mg 9/15 refused 02/17 took clozapine 300 mg 02/18 refused 02/19 took clozapine 300 mg 02/20 took clozapine 300 mg x2 (600mg) 02/21 refused 02/22 so far clozapine 300 mg There is an advantage to leaving the dosing schedule at TID since with his intermittent refusals, TID dosing gives patient more opportunities to take clozapine Were patient to all the sudden start taking full regimen... Depending on the previous days amount of refusals, it might be a lot to get full 900 mg in a day. That said, ostensibly patient has been on and tolerated clozapine for quite a long time. And thus far it seems patient has been taking enough of it to continue with the current regimen as he remains without any adverse events, hypotension etc.. And continuing this medication at this time seems to be his best chance of stabilizing. Regarding Prozac: Will hold Prozac for now out of concern for possible hypomania contributing to patient's presentation; Prozac has a long half-life and is essentially self tapering, making discontinuation syndrome low risk Patient is on Depakote: Get LFTs and ammonia level Patient is a 69 year old male with hx of schizoaffective disorder with psychotic features,Alzheimer's dementia, diabetes, GERD presented to the ED on 02/14/2025 from [facility] for multiple falls. became hypoxic on 02/16/25. Psychiatric consult for: medication management During psychiatric assessment, pt oriented to self and place. Opening eyes at times. Difficult to understand at times d/t mumbled and low volume speech. Calm and cooperative during conversation. poor historian. Patient reports he is in the hospital because I need a doctor ; pt was unable to discuss why he came into the hospital. Per MD, pt has been closing his eyes and not speaking to staff at times during the day; when asked about this, pt stated, I close my eyes because I'm agoraphobic and I don't want to be around people. I don't want to see people . Flight of ideas at times; pt stating mid-conversation, 23 is 3 more than 20. Women are men and men are women . Patient reports he ate lunch today and will try to eat dinner this evening. He did not appear to be responding to internal stimuli during conversation. Past Psychiatric History: Not able to obtain due to current mental status [facility] Medical History Schizoaffective disorder Family History: Not able to obtain due to current mental status Social History: report he is single, never and has no children Trauma History: Not able to obtain due to current mental status Diagnostics Vital Signs (24Hr): Vital Signs - 24 hr 02/21/25 14:59 02/21/25 20:00 02/22/25 03:43 Temperature 97.7 F Pulse Rate 100 149 H 70 Respiratory Rate 16 16 17 Blood Pressure 152/85 H 169/74 H Pulse Oximetry 98 96 Oxygen Delivery Method Room Air Room Air 02/22/25 08:00 Temperature Pulse Rate 105 H Respiratory Rate 16 Blood Pressure 154/87 H Pulse Oximetry 100 Oxygen Delivery Method Room Air BMI result Body Mass Index 23.3 Labs 02/22/25 13:37 02/22/25 06:25 Labs: Laboratory Results - last 48 hr 02/20/25 02/20/25 02/20/25 15:55 16:06 16:09 WBC 4.5 L RBC 4.27 L Hgb 13.2 L Hct 37.3 L MCV 87.4 MCH 30.9 MCHC 35.4 RDW 13.8 Plt Count 148 L MPV 8.7 L Absolute Nucleated RBC 0.000 Nucleated RBC % (auto) 0.0 Hold Purple Top VBG pH 7.49 H VBG pCO2 37 VBG pO2 64 VBG HCO3 28 H VBG O2 Saturation 90.0 VBG Base Excess 5.2 Sodium 144 Potassium 3.3 D Chloride 109 H Carbon Dioxide 27 Anion Gap 11 L BUN 6 L Creatinine 0.56 Estim Creat Clear Calc 119.6 Estimated GFR > 60 POC Glucose Random Glucose 178 H Calcium 8.9 Phosphorus Magnesium Total Bilirubin 0.4 AST 35 ALT 13 Alkaline Phosphatase 95 Ammonia 32 Total Protein 6.3 L Albumin 3.2 L Triglycerides Valproic Acid 02/20/25 02/20/25 02/21/25 16:18 20:30 02:12 WBC RBC Hgb Hct MCV MCH MCHC RDW Plt Count MPV Absolute Nucleated RBC Nucleated RBC % (auto) Hold Purple Top VBG pH VBG pCO2 VBG pO2 VBG HCO3 VBG O2 Saturation VBG Base Excess Sodium Potassium Chloride Carbon Dioxide Anion Gap BUN Creatinine Estim Creat Clear Calc Estimated GFR POC Glucose 172 H 150 H 149 H Random Glucose Calcium Phosphorus Magnesium Total Bilirubin AST ALT Alkaline Phosphatase Ammonia Total Protein Albumin Triglycerides Valproic Acid 02/21/25 02/21/25 02/21/25 05:48 17:26 20:23 WBC RBC Hgb Hct MCV MCH MCHC RDW Plt Count MPV Absolute Nucleated RBC Nucleated RBC % (auto) Hold Purple Top VBG pH VBG pCO2 VBG pO2 VBG HCO3 VBG O2 Saturation VBG Base Excess Sodium 145 Potassium 3.1 L Chloride 108 Carbon Dioxide 28 Anion Gap 12 BUN 6 L Creatinine 0.56 Estim Creat Clear Calc 119.6 Estimated GFR > 60 POC Glucose 129 H 112 Random Glucose 131 H Calcium 8.9 Phosphorus 2.9 Magnesium 1.7 Total Bilirubin AST ALT Alkaline Phosphatase Ammonia Total Protein Albumin 3.0 L Triglycerides 191 H Valproic Acid < 12.5 L 02/22/25 02/22/25 02/22/25 01:54 06:25 08:26 WBC RBC Hgb Hct MCV MCH MCHC RDW Plt Count MPV Absolute Nucleated RBC Nucleated RBC % (auto) Hold Purple Top SEE NOTE VBG pH VBG pCO2 VBG pO2 VBG HCO3 VBG O2 Saturation VBG Base Excess Sodium 145 Potassium 3.5 Chloride 110 H Carbon Dioxide 27 Anion Gap 12 BUN 10 Creatinine 0.62 Estim Creat Clear Calc 108.0 Estimated GFR > 60 POC Glucose 132 H 229 H Random Glucose 202 H Calcium 9.1 Phosphorus 2.9 Magnesium 1.9 Total Bilirubin AST ALT Alkaline Phosphatase Ammonia Total Protein Albumin 3.1 L Triglycerides Valproic Acid 02/22/25 02/22/25 11:45 13:37 WBC 7.9 RBC 4.19 L Hgb 13.1 L Hct 36.9 L MCV 88.1 MCH 31.3 MCHC 35.5 RDW 13.8 Plt Count 196 D MPV 8.6 L Absolute Nucleated RBC 0.000 Nucleated RBC % (auto) 0.0 Hold Purple Top VBG pH VBG pCO2 VBG pO2 VBG HCO3 VBG O2 Saturation VBG Base Excess Sodium Potassium Chloride Carbon Dioxide Anion Gap BUN Creatinine Estim Creat Clear Calc Estimated GFR POC Glucose 204 H Random Glucose Calcium Phosphorus Magnesium Total Bilirubin AST ALT Alkaline Phosphatase Ammonia Total Protein Albumin Triglycerides Valproic Acid Imaging Radiology Impressions: ITS Impressions Chest X-Ray 02/16/25 15:27 IMPRESSION: Left basilar atelectasis, pneumonia not excluded Electronically signed by: Nick Montana MD 02/16/2025 03:39 PM EDT RP Mental Status Exam Mental Status Exam Narrative: Disheveled in appearance; irritable and agitated mood and affect. disorganized in speech and behavior and intermittently agitated Medications Medications Current Medications Acetaminophen (Acetaminophen 325 Mg Tablet) 650 mg PO Q6H PRN PRN Reason: Headache/Pain, Scale 1-10 Al Hydroxide/Mg Hydroxide (Magnesium Hydrox/Alum Hydrox 30 Ml Oral.Susp) 30 ml PO Q6H PRN PRN Reason: Heartburn/Nausea Albuterol/Ipratropium (Albuterol/Iprat 2.5/0.5mg 3 Ml Ampul.Neb) 3 ml INHALE RQ4H WHILE AWAKE [facility] Last Admin: 02/22/25 11:18 Dose: Not Given Calcium Carbonate (Calcium Carbonate 750 Mg Tab.Chew) 750 mg PO Q4H PRN PRN Reason: Heartburn Clozapine (Clozapine 100 Mg Tablet) 300 mg PO TID [facility] Last Admin: 02/22/25 08:31 Dose: 300 mg Dextrose (Dextrose 50 % 25 Gm/50 Ml Syringe) 25 gm IVPUSH Q15M PRN; Protocol PRN Reason: per Hypoglycemia Standing Ord. Diazepam (Diazepam 2 Mg Tablet) 1 mg PO TID [facility] Last Admin: 02/22/25 08:31 Dose: 1 mg Diazepam (Diazepam 10 Mg/2 Ml Cartridge) 2.5 mg IVPUSH BID [facility] Docusate Sodium (Docusate Sodium 100 Mg Capsule) 100 mg PO BID [facility] Last Admin: 02/22/25 08:39 Dose: Not Given Enoxaparin Sodium (Enoxaparin Sodium 40 Mg/0.4 Ml Syringe) 40 mg SUBCUT Q24H [facility] Last Admin: 02/22/25 08:32 Dose: 40 mg Fluoxetine HCl (Fluoxetine Hcl 20 Mg Capsule) 40 mg PO BEDTIME [facility] Last Admin: 02/21/25 22:23 Dose: Not Given Glucagon (Glucagon Hcl 1 Mg Vial) 1 mg IM Q20M PRN PRN Reason: low BG Glucose (Glucose Gel 15 Gm Gel..Gram.) 15 gm PO Q15M PRN; Protocol PRN Reason: per Hypoglycemia Standing Ord. Ampicillin Sodium/Sulbactam (Sodium 1.5 gm/ Sodium Chloride) 100 mls @ 200 mls/hr IV Q6H [facility] Last Infusion: 02/22/25 13:14 Dose: Infused Nutrition (Parenteral) (Parenteral Nutrition) 1,440 mls @ 60 mls/hr IV .Q24H [facility]; Protocol Stop: 02/22/25 20:59 Last Admin: 02/22/25 01:02 Dose: 60 mls/hr Valproic Acid 500 mg/ Dextrose 55 mls @ 52.5 mls/hr IV Q12H [facility] Last Infusion: 02/22/25 11:01 Dose: Infused Nutrition (Parenteral) (Parenteral Nutrition) 1,920 mls @ 80 mls/hr IV .Q24H [facility]; Protocol Stop: 02/23/25 20:59 Albumin Human (Kedbumin 25 %) 50 mls @ 100 mls/hr IV ONCE ONE Stop: 02/22/25 13:57 Insulin Glargine (Insulin Glargine,Hum.Rec.Anlog 100 Unit/Ml 10 Ml Vial) 24 unit SUBCUT DAILY [facility] On Hold: 02/18/25 20:34 Last Admin: 02/18/25 09:21 Dose: Not Given Insulin Human Lispro (Insulin Lispro 100 Unit/Ml 3 Ml Vial) 0 unit SUBCUT Q6H [facility]; Protocol Last Admin: 02/22/25 08:44 Dose: 4 unit Magnesium Hydroxide (Milk Of Magnesia 30 Ml Oral.Susp) 30 ml PO DAILY PRN PRN Reason: Constipation Melatonin (Melatonin 3 Mg Tablet) 6 mg PO BEDTIME PRN PRN Reason: Insomnia Metoprolol Tartrate (Metoprolol Tartrate 12.5 Mg Halftab) 12.5 mg PO BID [facility]; Protocol Last Admin: 02/22/25 08:31 Dose: 12.5 mg Omeprazole (Omeprazole 20 Mg Capsule.Dr) 20 mg PO DAILY@0630 [facility] Last Admin: 02/22/25 06:41 Dose: Not Given Perphenazine (Perphenazine 2 Mg Tablet) 2 mg PO BID [facility] Last Admin: 02/22/25 08:31 Dose: 2 mg Perphenazine (Perphenazine 4 Mg Tablet) 4 mg PO BID [facility] Last Admin: 02/22/25 08:31 Dose: 4 mg Pharmacy Consult (Consult Rx Parenteral Nutrition Ordering) 1 each MISCELLANE DAILY PRN PRN Reason: Consult order Senna (Sennosides 8.6 Mg Tablet) 8.6 mg PO DAILY [facility] Last Admin: 02/22/25 08:31 Dose: 8.6 mg Sodium Biphosphate/Sodium Phosphate (Sodium Phosphate,Dooly-Dibasic 133 Ml Enema) 133 ml OK DAILY PRN PRN Reason: Constipation Sodium Chloride (0.9 % Sodium Chloride Flush 3 Ml Syringe) 3 ml IVFLUSH QSHIFT NATE Last Admin: 02/22/25 08:44 Dose: Not Given Trazodone HCl (Trazodone Hcl 50 Mg Tablet) 50 mg PO BEDTIME MRX1 PRN PRN Reason: Insomnia Allergies Allergies Allergy/AdvReac Type Severity Reaction Status Date / Time No Known Allergies Allergy Verified 02/14/25 08:42 Assessment & Plan Assessment & Plan (1) Schizoaffective disorder: Status: Acute Code(s): F25.9 - Schizoaffective disorder, unspecified (2) Pneumonia: Status: Acute Code(s): J18.9 - Pneumonia, unspecified organism Plan Patient is a 69 year old male with hx of schizoaffective disorder with psychotic features,Alzheimer's dementia, diabetes, GERD presented to the ED on 02/14/2025 from [facility] for multiple falls; initially was going to be presented to the geriatric psychiatric unit however became hypoxic on 02/16/25 and admitted to the medical floor for aspiration pneumonia. On the medical floor patient has been intermittently refusing medications and then agitated. Patient has seen by psychiatry on 02/15 and 02/20. Psychiatry consulted again today to help assess medication regimen given p.o. refusals and agitation. Patient remains disorganized: On approach patient in the process of getting another IV inserted since he ripped out his existing 1; nursing staff tells me this has happened multiple times . Patient said I have been swinging all night... Patient disorganized in both speech and behavior. Pipe Layer Helper asks why he is feeling riled up and he says I do not know... If I did I had light a candle.. Pipe Layer Helper asked about why he has been refusing his psychiatric medications and refusing clozapine and patient says you just are about pills and dills and dill pickles... He then says something about real estate underwriter being a Jaborwoky... Further questions met with nonsensical answers. Impression/plan: Patient remains has a psychotic illness and he is currently disorganized in both speech and behavior and agitated. Is unclear etiology for decompensation real estate underwriter could not find in the notes social history. Recommend primary team use case management to help gather collateral information. Recommendations Regarding medication management: 1.Regarding diazepam: Psychiatry was consulted on 02/20 at which time it was recommended patient be restarted on his home dose of diazepam 3 mg bid; it does not look like this was restarted and this could be a part of his agitation. It has been restarted today (02/22) and perhaps this will help. Since patient is frequently refusing p.o. medications, as as long as airway remains protected, recommend continuing to use IV diazepam to help with agitation; would increase it to 3mg BID (which is his home dose) and have extra prn available for agitation. 2.Regarding continuation of clozapine: -recommend serial troponins, CRP to monitor for myocarditis (since on both Clozapine and Depakote) -serial EKGs to assess for shifts from baseline -so far hypotension has not been a problem; seizure risk is lower since patient is also on Depakote (though Depakote plus clozapine does increase risk of myocarditis) Somewhat difficult to give exact recommendations going forward since patient is intermittently refusing doses. He is currently scheduled on clozapine 300 mg t.i.d. (home dose?) 02/15 took clozapine 300 mg 02/16 refused 02/17 took clozapine 300 mg 02/18 refused 02/19 took clozapine 300 mg 02/20 took clozapine 300 mg x2 (600mg) 02/21 refused 02/22 so far clozapine 300 mg On admission patient was scheduled on clozapine 300 mg t.i.d.. This real estate underwriter is seeing patient for the 1st time and does not know home dose or whether patient was adherent with clozapine at home. Ostensibly patient has been on and tolerated clozapine for quite a while, lowering the overall risk of patient intermittently missing doses. Also, thus far it seems that in the hospital, patient has been taking enough doses to continue with the current regimen, as he remains without any adverse events, hypotension etc.. There are advantages and disadvantages to leaving the Clozaril dose at 300 mg t.i.d.. One advantage is that this medication seems to be his best chance of stabilizing. Also, leaving the dosing schedule at TID since with his intermittent refusals, TID dosing gives patient more opportunities to take clozapine. Leaving current regimen however does have disadvantages. Were patient to all the sudden start taking full regimen...Depending on the previous several days of refusals, it might be a lot to get full 900 mg in a day and patient risks hypotension, seizure, myocarditis. -so far hypotension has not been a problem; seizure risk is lower since patient is also on Depakote (though Depakote plus clozapine does increase risk of myocarditis) -recommend serial troponins, CRP to monitor for myocarditis -serial EKGs to assess for shifts from baseline 3.Regarding Prozac: Will hold Prozac for now out of concern for possible hypomania contributing to patient's presentation; Prozac has a long half-life and is essentially self tapering, making discontinuation syndrome low risk 4.Patient is on Depakote: -monitor Depakote level -Get LFTs and ammonia level (as hyperammonemia could be a contributing factor to patient's agitation) 5.For agitation: Use diazepam as tolerated may also consider using Zyprexa or Haldol -monitor QTC 6.Regarding medication refusals: Recommend nursing re-offer any psychiatric medications that patient initially refuses Total time managing care of this patient today ____ minutes. Patient educated on: diagnosis and medication risk/benefits Informed Consent: does not understand
[2025-02-22 14:23] LABS: Atypical Lymph Absolute Manual 0.1 x10*3/uL; Atypical Lymphs Percent Manual 1 % (0-6); Band Neutrophils Percent 0 % (3-5); Lymphocytes Absolute Manual 1.2 X10*3/uL (1.2-4.9); Lymphocytes Percent Manual 15 % (20-40); Monocytes Absolute Manual 0.2 X10*3/uL (0.1-1.2); Monocytes Percent Manual 2 % (2-11); Neutrophils Absolute Manual 6.5 X10*3/uL (2.0-8.3); Neutrophils Percent Manual 82 % (45-73)
[2025-02-22 14:25] LABS: RBC Morphology NORMAL; Toxic Vacuolation PRESENT
[2025-02-22 14:59] LABS: Alanine Aminotransferase 21 U/L (0-40); Alkaline Phosphatase 93 U/L (39-117); Aspartate Amino Transferase 42 U/L (5-37); Total Protein 6.1 g/dL (6.5-8.0)
[2025-02-22 15:06] VITALS: BP 145/78; PULSE 102; RESP 18; TEMP 36.8; O2SAT 96
[2025-02-22] MEDS: Albumin Human 25 % 50 ML 100 ML IV (15:09)
[2025-02-22 16:18] LABS: Ammonia 33 umol/L (13-55)
[2025-02-22 16:33] LABS: Troponin-I High Sensitivity 5.7 ng/L (<3.5-35.0)
[2025-02-22 16:54] LABS: Glucose, Whole Blood 159 mg/dL (60-115)
[2025-02-22 19:48] VITALS: BP 179/81; PULSE 94; RESP 20; TEMP 36.7; O2SAT 98
[2025-02-22 19:58] LABS: Glucose, Whole Blood 156 mg/dL (60-115)
[2025-02-22] MEDS: Parenteral Nutrition 1,920 ML 80 ML IV (22:10)
[2025-02-22] MEDS: diazePAM 10 MG/2 ML CARTRIDGE 3 MG IVPUSH (22:10)
[2025-02-22] MEDS: 0.9 % Sodium Chloride Flush 3 ML SYRINGE IVFLUSH (22:34)
[2025-02-22 23:35] VITALS: BP 168/85; PULSE 76; RESP 18; TEMP 36.6; O2SAT 99
--- NOTE | 2025-02-23 | ECG_ITS ---
Test Reason : qt chec Blood Pressure : */* mmHG Vent. Rate : 79 BPM Atrial Rate : 326 BPM P-R Int : * ms QRS Dur : 78 ms QT Int : 396 ms P-R-T Axes : 74 -13 45 degrees QTcB Int : 454 ms Atrial flutter with 4:1 A-V conduction Nonspecific ST abnormality Abnormal ECG When compared with ECG of 22-Feb-2025 16:23, Atrial flutter has replaced Sinus rhythm Nonspecific T wave abnormality no longer evident in Inferior leads Nonspecific T wave abnormality, improved in Lateral leads Referred By: Colleen Burns Electronically Signed By: Deon Shin
[2025-02-23] MEDS: Ampicillin Sodium/Sulbactam Na 1.5 GM in 0.9 % Sodium Chloride 100 ML IV ×4 (01:32→17:29)
[2025-02-23 03:27] LABS: Glucose, Whole Blood 213 mg/dL (60-115)
[2025-02-23 03:57] VITALS: BP 190/83; PULSE 76; RESP 20; TEMP 36.7; O2SAT 98
[2025-02-23 06:06] VITALS: BP 161/71; PULSE 72; RESP 16
[2025-02-23 07:28] LABS: Hematocrit 35.9 % (42.0-52.0); Hemoglobin 12.2 g/dl (14.0-18.0); Mean Corpuscular HGB Conc 34.0 g/dl (31.0-36.0); Mean Corpuscular Hemoglobin 30.5 pg (27.0-33.0); Mean Corpuscular Volume 89.8 fL (80.0-98.0); NRBC Abs Auto 0.000 X10*3/uL (0.0-0.012); NRBC Pct Auto 0.0 /100WBC (0.0-0.2); Platelet Count 223 X10*3/uL (160-400); Red Blood Count 4.00 X10*6/uL (4.60-5.80); White Blood Count 7.7 X10*3/uL (4.8-10.8)
[2025-02-23 07:35] LABS: Alanine Aminotransferase 25 U/L (0-40); Albumin Level 3.5 g/dL (3.5-5.0); Alkaline Phosphatase 95 U/L (39-117); Anion Gap 10 (12-20); Aspartate Amino Transferase 42 U/L (5-37); Blood Urea Nitrogen 11 mg/dL (9-16); Calcium 9.4 mg/dL (8.4-10.2); Carbon Dioxide 27 mmol/L (22-29); Chloride 112 mmol/L (96-108); Creatinine Clr Calc Pharmacy 113.5; Estimated Glomerular Filt Rate > 60; Potassium 3.7 mmol/L (3.3-5.1); Sodium 145 mmol/L (135-145); Total Protein 6.5 g/dL (6.5-8.0)
[2025-02-23 07:39] LABS: Albumin Level 3.4 g/dL (3.5-5.0); Anion Gap 9 (12-20); Blood Urea Nitrogen 11 mg/dL (9-16); Calcium 9.2 mg/dL (8.4-10.2); Carbon Dioxide 27 mmol/L (22-29); Chloride 113 mmol/L (96-108); Creatinine Clr Calc Pharmacy 113.5; Estimated Glomerular Filt Rate > 60; Magnesium 1.8 mg/dL (1.6-2.6); Potassium 3.7 mmol/L (3.3-5.1); Sodium 145 mmol/L (135-145)
[2025-02-23 07:43] LABS: Troponin-I High Sensitivity 9.2 ng/L (<3.5-35.0)
[2025-02-23] MEDS: diazePAM 10 MG/2 ML CARTRIDGE 3 MG IVPUSH ×3 (09:00→20:49)
[2025-02-23] MEDS: 0.9 % Sodium Chloride Flush 3 ML SYRINGE IVFLUSH ×2 (09:01→16:27)
[2025-02-23 09:25] LABS: Atypical Lymph Absolute Manual 0.1 x10*3/uL; Atypical Lymphs Percent Manual 1 % (0-6); Eosinophils Absolute Manual 0.2 X10*3/uL (0.0-0.4); Eosinophils Percent Manual 3 % (0-4); Lymphocytes Absolute Manual 1.8 X10*3/uL (1.2-4.9); Lymphocytes Percent Manual 23 % (20-40); Monocytes Absolute Manual 0.7 X10*3/uL (0.1-1.2); Monocytes Percent Manual 9 % (2-11); Neutrophils Percent Manual 64 % (45-73)
[2025-02-23 09:27] LABS: Burr Cells 1+ (0-2) /OIF; Large Platelet PRESENT; RBC Morphology NOTED; Smudge Cells PRESENT; Toxic Vacuolation PRESENT
[2025-02-23 09:28] LABS: Band Neutrophils Percent 0 % (3-5); Neutrophils Absolute Manual 4.9 X10*3/uL (2.0-8.3)
--- NOTE | 2025-02-23 10:11 | MHC.CLN ---
F/U CONTINUES WITH POOR PO INTAKE REVIEWED LABS DISCUSSED WITH PHARMACY CONTINUE PPN AT MAX GOAL RATE 80ML/HR WITH 91G LIPIDS PROVIDES 1889 TOTAL KCALS (28KCALS/KG), 192G DEXTROSE, 82G PROTEIN (1.2G/KG) REPLETE LYTES NEEDED
[2025-02-23] MEDS: Valproic Acid (as Sodium Salt) 500 MG in Dextrose 5 % 50 ML 52.5 MG IV ×2 (10:47→20:41)
[2025-02-23] MEDS: OLANZapine 10 MG VIAL 5 MG IM (10:47)
--- NOTE | 2025-02-23 11:23 | MHC.SLORD ---
Speech Language Pathology Order Status: MD consulted, RN and sitter present during dysphagia treatment, pt did not accept PO this morning. MUSHROOM PRESS OPERATOR to return this afternoon. Diet remains unchanged: NDD1, NTL
[2025-02-23 11:47] LABS: Glucose, Whole Blood 172 mg/dL (60-115)
--- NOTE | 2025-02-23 11:49 | HO.WOUND ---
Wound Consult: follow up 69yr old? admitted to [facility] on 02/16/25 18:06- See progress notes and H&P for detailed history.? Patient skin assessed during P&I Data collection 02/20/25 and noted for Right heel redness - Stage 1 Pressure Injury. ? Follow up today Right heel 02/20/25 Right heel 02/23/25 Etiology: ??Stage 1 Pressure Injury Measurements: 1cm x 1cm x 0cm Wound Bed: red pink nonblanchable tissue - tissue partially blanching to superior aspect Drainage / Odor: None Edges: ? attached Coco wound: pink blanchable tissue ? No Induration, Fluctuance or Warmth noted Goals of Treatment: ? Off load pressure - skin prep applied along with foam dressing Recommendations: 1. Turn and Reposition every 2 hours and as needed for patient comfort.? Use pillows or wedges to support off loading positions. 2. Off Load all bony prominences with use of pillows and heel boots if needed.? Apply Preventative foams where needed. ? 3. Monitor for incontinence and moisture control, use barrier creams when needed for prevention and treatment. 4. Provide adequate and supplemental nutrition.? 5. Order or Continue low air loss mattress. 6. When applicable maintain blood glucose levels per Providers order. Bilateral Heels? - Elevate heels off of bed surface with pillows.? Float heels off of pillows.? Apply skin prep allow to dry.? Apply heel foam dressings, peel back and assess Q shift and change every 3 days and PRN. Re-consult wound care Nurse for wound deterioration or wound changes.
[2025-02-23 14:07] VITALS: BP 132/92; PULSE 83; RESP 20; O2SAT 100
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
--- NOTE | 2025-02-23 15:10 | MHC.CM.PN ---
EMR reviewed and per MD rounds, pt is not medically cleared for discharge due to management of acute hypoxic respiratory failure due to aspiration pneumonia, pt also experiencing aggression/psych consulted.
[2025-02-23 15:43] LABS: Glucose, Whole Blood 168 mg/dL (60-115)
[2025-02-23 16:00] VITALS: BP 163/72; PULSE 75; RESP 18; TEMP 36.7; O2SAT 97
[2025-02-23 17:30] VITALS: BP 162/90
[2025-02-23 18:14] LABS: Glucose, Whole Blood 176 mg/dL (60-115)
--- NOTE | 2025-02-23 18:50 | HO.PM.IMPN ---
Subjective Subjective Date of Service: 02/23/25 Interval History: dec po intake ,behviour agiatation Review of Systems seems similar refuses rx/po intake Physical Exam Exam: Exam: Appearance: More awake ,intermittent closes eyes ,asking for icecream cvs: [id number], [id number] res: air entry fair , somewhat diminshed at bases abd: no rebound or guarding ,nt, bs present. ext pulses present , no cyanosis . neuro: non cooperative. Vital Signs: Vital Signs: Last Vital Signs Temp 98.0 F 02/23/25 16:00 Pulse 75 02/23/25 16:00 Resp 18 02/23/25 16:00 BP 162/90 H 02/23/25 17:30 Pulse Ox 97 02/23/25 16:00 O2 Del Method Room Air 02/23/25 16:00 O2 Flow Rate 2 02/19/25 07:01 BMI result Body Mass Index 23.3 Objective Data Active Medications Acetaminophen (Acetaminophen 325 Mg Tablet) 650 mg PO Q6H PRN PRN Reason: Headache/Pain, Scale 1-10 Al Hydroxide/Mg Hydroxide (Magnesium Hydrox/Alum Hydrox 30 Ml Oral.Susp) 30 ml PO Q6H PRN PRN Reason: Heartburn/Nausea Calcium Carbonate (Calcium Carbonate 750 Mg Tab.Chew) 750 mg PO Q4H PRN PRN Reason: Heartburn Clozapine (Clozapine 25 Mg Tablet) 50 mg PO TID [facility] Last Admin: 02/23/25 16:38 Dose: Not Given Documented By: JAYME Non-Admin Reason: Patient Refused Dextrose (Dextrose 50 % 25 Gm/50 Ml Syringe) 25 gm IVPUSH Q15M PRN; Protocol PRN Reason: per Hypoglycemia Standing Ord. Diazepam (Diazepam 10 Mg/2 Ml Cartridge) 3 mg IVPUSH TID [facility] Last Admin: 02/23/25 16:26 Dose: 3 mg Documented By: JAYME Docusate Sodium (Docusate Sodium 100 Mg Capsule) 100 mg PO BID [facility] Last Admin: 02/23/25 09:19 Dose: Not Given Documented By: JAYME Non-Admin Reason: Patient Refused Enoxaparin Sodium (Enoxaparin Sodium 40 Mg/0.4 Ml Syringe) 40 mg SUBCUT Q24H [facility] Last Admin: 02/23/25 09:10 Dose: 40 mg Documented By: JAYME Fluoxetine HCl (Fluoxetine Hcl 20 Mg Capsule) 40 mg PO BEDTIME NATE On Hold: 02/22/25 14:23 Last Admin: 02/21/25 22:23 Dose: Not Given Documented By: PAPITO Non-Admin Reason: pt refused Glucagon (Glucagon Hcl 1 Mg Vial) 1 mg IM Q20M PRN PRN Reason: low BG Glucose (Glucose Gel 15 Gm Gel..Gram.) 15 gm PO Q15M PRN; Protocol PRN Reason: per Hypoglycemia Standing Ord. Hydralazine HCl (Hydralazine Hcl 20 Mg/Ml Vial) 5 mg IVPUSH Q6H PRN; Protocol PRN Reason: htn Last Admin: 02/23/25 17:30 Dose: 5 mg Documented By: JAYME Ampicillin Sodium/Sulbactam (Sodium 1.5 gm/ Sodium Chloride) 100 mls @ 200 mls/hr IV Q6H NATE Last Infusion: 02/23/25 18:35 Dose: Infused Documented By: JAYME Valproic Acid 500 mg/ Dextrose 55 mls @ 52.5 mls/hr IV Q12H NATE Last Infusion: 02/23/25 12:09 Dose: Infused Documented By: JAYME Nutrition (Parenteral) (Parenteral Nutrition) 1,920 mls @ 80 mls/hr IV .Q24H NATE; Protocol Stop: 02/23/25 20:59 Last Admin: 02/22/25 22:10 Dose: 80 mls/hr Documented By: PAPITO Nutrition (Parenteral) (Parenteral Nutrition) 1,920 mls @ 80 mls/hr IV .Q24H NATE; Protocol Stop: 02/24/25 20:59 Insulin Glargine (Insulin Glargine,Hum.Rec.Anlog 100 Unit/Ml 10 Ml Vial) 24 unit SUBCUT DAILY NATE On Hold: 02/18/25 20:34 Last Admin: 02/18/25 09:21 Dose: Not Given Documented By: SRINIVASA Non-Admin Reason: not eating Insulin Human Lispro (Insulin Lispro 100 Unit/Ml 3 Ml Vial) 0 unit SUBCUT Q6H NATE; Protocol Last Admin: 02/23/25 16:26 Dose: 2 unit Documented By: JAYME Magnesium Hydroxide (Milk Of Magnesia 30 Ml Oral.Susp) 30 ml PO DAILY PRN PRN Reason: Constipation Melatonin (Melatonin 3 Mg Tablet) 6 mg PO BEDTIME PRN PRN Reason: Insomnia Metoprolol Tartrate (Metoprolol Tartrate 12.5 Mg Halftab) 12.5 mg PO BID [facility]; Protocol Last Admin: 02/23/25 09:20 Dose: Not Given Documented By: JAYME Non-Admin Reason: Patient Refused Omeprazole (Omeprazole 20 Mg Capsule.) 20 mg PO DAILY@0630 [facility] Last Admin: 02/23/25 07:30 Dose: Not Given Documented By: PAPITO Non-Admin Reason: Patient Refused Perphenazine (Perphenazine 2 Mg Tablet) 2 mg PO BID [facility] Last Admin: 02/23/25 09:19 Dose: Not Given Documented By: JAYME Non-Admin Reason: Patient Refused Perphenazine (Perphenazine 4 Mg Tablet) 4 mg PO BID [facility] Last Admin: 02/23/25 09:19 Dose: Not Given Documented By: JAYME Non-Admin Reason: Patient Refused Pharmacy Consult (Consult Rx Parenteral Nutrition Ordering) 1 each MISCELLANE DAILY PRN PRN Reason: Consult order Senna (Sennosides 8.6 Mg Tablet) 8.6 mg PO DAILY [facility] Last Admin: 02/23/25 09:20 Dose: Not Given Documented By: JAYME Non-Admin Reason: Patient Refused Sodium Biphosphate/Sodium Phosphate (Sodium Phosphate,[place]-Dibasic 133 Ml Enema) 133 ml [place] DAILY PRN PRN Reason: Constipation Sodium Chloride (0.9 % Sodium Chloride Flush 3 Ml Syringe) 3 ml IVFLUSH QSHIFT [facility] Last Admin: 02/23/25 16:27 Dose: 3 ml Documented By: JAYME Trazodone HCl (Trazodone Hcl 50 Mg Tablet) 50 mg PO BEDTIME MRX1 PRN PRN Reason: Insomnia Labs 02/23/25 06:37 02/23/25 06:37 Labs: Laboratory Results - last 24 hr 02/22/25 02/22/25 02/23/25 16:06 19:53 03:22 MCV MCH MCHC RDW Plt Count MPV Absolute Nucleated RBC Nucleated RBC % (auto) Neutrophils % (Manual) Band Neutrophils % Lymphocytes % (Manual) Atypical Lymphs % (Man) Monocytes % (Manual) Eosinophils % (Manual) Abs Neuts (Manual) Lymphocytes # (Manual) Atyp Lymphs # (Manual) Monocytes # (Manual) Eosinophils # (Manual) Smudge Cells Toxic Vacuolation Platelet Estimate Large Platelets Plt Morphology Comment RBC Morphology Sindy Cells Anion Gap Estim Creat Clear Calc Estimated GFR POC Glucose 156 H 213 H Random Glucose Calcium Phosphorus Magnesium Total Bilirubin AST ALT Alkaline Phosphatase Troponin I High Sens C-Reactive Protein Total Protein Albumin Valproic Acid 26.2 L 02/23/25 02/23/25 02/23/25 06:37 06:37 06:37 MCV 89.8 MCH 30.5 MCHC 34.0 RDW 13.6 Plt Count 223 MPV 9.3 L Absolute Nucleated RBC 0.000 Nucleated RBC % (auto) 0.0 Neutrophils % (Manual) 64 Band Neutrophils % 0 L Lymphocytes % (Manual) 23 Atypical Lymphs % (Man) 1 Monocytes % (Manual) 9 Eosinophils % (Manual) 3 Abs Neuts (Manual) 4.9 Lymphocytes # (Manual) 1.8 Atyp Lymphs # (Manual) 0.1 Monocytes # (Manual) 0.7 Eosinophils # (Manual) 0.2 Smudge Cells PRESENT Toxic Vacuolation PRESENT Platelet Estimate NORMAL Large Platelets PRESENT Plt Morphology Comment NOTED RBC Morphology NOTED Sindy Cells 1+ (0-2) Anion Gap 9 L 10 L Estim Creat Clear Calc 113.5 113.5 Estimated GFR > 60 POC Glucose Random Glucose Calcium Phosphorus Magnesium Total Bilirubin AST ALT Alkaline Phosphatase Troponin I High Sens C-Reactive Protein Total Protein Albumin Valproic Acid 02/23/25 02/23/25 02/23/25 06:37 06:37 06:37 MCV MCH MCHC RDW Plt Count MPV Absolute Nucleated RBC Nucleated RBC % (auto) Neutrophils % (Manual) Band Neutrophils % Lymphocytes % (Manual) Atypical Lymphs % (Man) Monocytes % (Manual) Eosinophils % (Manual) Abs Neuts (Manual) Lymphocytes # (Manual) Atyp Lymphs # (Manual) Monocytes # (Manual) Eosinophils # (Manual) Smudge Cells Toxic Vacuolation Platelet Estimate Large Platelets Plt Morphology Comment RBC Morphology Sindy Cells Anion Gap Estim Creat Clear Calc Estimated GFR > 60 POC Glucose Random Glucose 128 H 130 H Calcium 9.2 9.4 Phosphorus 2.8 Magnesium 1.8 Total Bilirubin 0.4 AST 42 H ALT 25 Alkaline Phosphatase 95 Troponin I High Sens 9.2 D C-Reactive Protein 1.66 H Total Protein 6.5 Albumin 3.4 L Valproic Acid 02/23/25 02/23/25 02/23/25 06:37 11:42 15:34 MCV MCH MCHC RDW Plt Count MPV Absolute Nucleated RBC Nucleated RBC % (auto) Neutrophils % (Manual) Band Neutrophils % Lymphocytes % (Manual) Atypical Lymphs % (Man) Monocytes % (Manual) Eosinophils % (Manual) Abs Neuts (Manual) Lymphocytes # (Manual) Atyp Lymphs # (Manual) Monocytes # (Manual) Eosinophils # (Manual) Smudge Cells Toxic Vacuolation Platelet Estimate Large Platelets Plt Morphology Comment RBC Morphology Sindy Cells Anion Gap Estim Creat Clear Calc Estimated GFR POC Glucose 172 H 168 H Random Glucose Calcium Phosphorus Magnesium Total Bilirubin AST ALT Alkaline Phosphatase Troponin I High Sens C-Reactive Protein Total Protein Albumin 3.5 Valproic Acid 02/23/25 18:09 MCV MCH MCHC RDW Plt Count MPV Absolute Nucleated RBC Nucleated RBC % (auto) Neutrophils % (Manual) Band Neutrophils % Lymphocytes % (Manual) Atypical Lymphs % (Man) Monocytes % (Manual) Eosinophils % (Manual) Abs Neuts (Manual) Lymphocytes # (Manual) Atyp Lymphs # (Manual) Monocytes # (Manual) Eosinophils # (Manual) Smudge Cells Toxic Vacuolation Platelet Estimate Large Platelets Plt Morphology Comment RBC Morphology Sindy Cells Anion Gap Estim Creat Clear Calc Estimated GFR POC Glucose 176 H Random Glucose Calcium Phosphorus Magnesium Total Bilirubin AST ALT Alkaline Phosphatase Troponin I High Sens C-Reactive Protein Total Protein Albumin Valproic Acid Assessment and Plan (1) Alzheimer's dementia: Status: Acute (2) Schizoaffective disorder: Status: Acute Plan 69M PMH schizoaffective disorder with psychotic features, major depressive disorder, diabetes, GERD presented to the ED on 02/14/2025 for multiple falls. became hypoxic on 02/16/25 acute toxic metabolic encephalopathy and Acute hypoxic respiratory failure due to aspiration pneumonia IV Unasyn day 12/08. blood cultures neg@5days , wean O2 as tolerated, aspiration precautions, off oxygen, goal saturation 91-94 Seen by speech and swallow-purred /nector thick. refuses po intake is low, refuses meds,gets agitated ,passes inappropriate comments. currently on tpn. Schizoaffective disorder with psychotic features si clozapine levels intial on 02/17: 133 , norcloazpine : 50 he refuses psych medsand vital/rx plan: repeat clozapine levels pending , depkote levels : 26 moniter lft, crp daily will switch depakote to iv ,also switched valium to iv. tried to give him po clozapine, also reoffer Trilafon if takes ,also added -gets agiatated. psych is aware to follow up on patient- added trop/ekg qdaily, tele may need zyprexa prn moniter closely for sedation or respiratory comprimise. psych/care team prior to discharge. Diabetes Basal bolus insulin elevated bp: insetting of behaviour agiatation added hydralazine psych will review meds DVT prophylaxis with Lovenox Full Code reason for continued hospitalization:intermittent weak/dec po intake, awaiting cultures,ivf ,iv antibiotics.tpn ,psych to adjust meds Quality Stroke Does the patient have a stroke diagnosis?: No VTE Prior VTE?: No VTE Risk Level:: Medical - moderate - high VTE Device Contraindication: Treatment Not Indicated VTE Drug Contraindication: N/A - Med Ordered
[2025-02-23 19:36] VITALS: BP 167/70; PULSE 80; RESP 18; TEMP 36.1; O2SAT 97
[2025-02-23 19:47] LABS: Glucose, Whole Blood 179 mg/dL (60-115)
[2025-02-23] MEDS: Metoprolol Tartrate 12.5 MG HALFTAB PO (19:47)
[2025-02-23] MEDS: Parenteral Nutrition 1,920 ML 80 ML IV (23:02)
[2025-02-24 03:38] VITALS: BP 138/62; PULSE 57; RESP 18; TEMP 36.1; O2SAT 95
[2025-02-24 07:18] LABS: Calcium 9.1 mg/dL (8.4-10.2); Chloride 111 mmol/L (96-108); Potassium 3.6 mmol/L (3.3-5.1); Sodium 143 mmol/L (135-145)
[2025-02-24 07:24] VITALS: BP 134/64; PULSE 75; RESP 16; TEMP 36.1; O2SAT 95
[2025-02-24 07:26] LABS: Troponin-I High Sensitivity 3.4 ng/L (<3.5-35.0)
[2025-02-24] MEDS: Valproic Acid (as Sodium Salt) 500 MG in Dextrose 5 % 50 ML 52.5 MG IV ×2 (09:08→21:31)
[2025-02-24] MEDS: 0.9 % Sodium Chloride Flush 3 ML SYRINGE IVFLUSH ×2 (09:09→20:42)
[2025-02-24] MEDS: diazePAM 10 MG/2 ML CARTRIDGE 3 MG IVPUSH ×3 (09:09→20:37)
--- NOTE | 2025-02-24 10:07 | MHC.CLN ---
F/U CONTINUES WITH POOR PO INTAKE REVIEWED LABS DISCUSSED WITH PHARMACY CONTINUE PPN AT MAX GOAL RATE 80ML/HR WITH 91G LIPIDS PROVIDES 1889 TOTAL KCALS (28KCALS/KG), 192G DEXTROSE, 82G PROTEIN (1.2G/KG) REPLETE LYTES NEEDED GOAL TO REDUCE PPN PO INTAKE IMPROVES
--- NOTE | 2025-02-24 14:49 | P.PNIM_ITS ---
Subjective Subjective Date of Service: 02/24/25 Interval History: dec po intake ,behviour agiatation Review of Systems ate few bites of chocklate icecream no new events Review of Systems: Yes all other systems are reviewed and are negative Physical Exam 2 Exam: Exam: Appearance: More awake ,intermittent closes eyes ,asking for icecream cvs: rrr, [id number] res: air entry fair , somewhat diminshed at bases abd: no rebound or guarding ,nt, bs present. ext pulses present , no cyanosis . neuro: non cooperative. Vital Signs: Vital Signs: Last Vital Signs Temp 97.0 F 02/24/25 07:24 Pulse 75 02/24/25 07:24 Resp 16 02/24/25 07:24 BP 134/64 02/24/25 07:24 Pulse Ox 95 02/24/25 07:24 O2 Del Method Room Air 02/24/25 07:24 O2 Flow Rate 2 02/19/25 07:01 BMI result Body Mass Index 23.3 Objective Data Active Medications Acetaminophen (Acetaminophen 325 Mg Tablet) 650 mg PO Q6H PRN PRN Reason: Headache/Pain, Scale 1-10 Al Hydroxide/Mg Hydroxide (Magnesium Hydrox/Alum Hydrox 30 Ml Oral.Susp) 30 ml PO Q6H PRN PRN Reason: Heartburn/Nausea Calcium Carbonate (Calcium Carbonate 750 Mg Tab.Chew) 750 mg PO Q4H PRN PRN Reason: Heartburn Clozapine (Clozapine 25 Mg Tablet) 50 mg PO TID [facility] Last Admin: 02/24/25 09:23 Dose: Not Given Documented By: ROBBY Non-Admin Reason: Patient Refused Dextrose (Dextrose 50 % 25 Gm/50 Ml Syringe) 25 gm IVPUSH Q15M PRN; Protocol PRN Reason: per Hypoglycemia Standing Ord. Diazepam (Diazepam 10 Mg/2 Ml Cartridge) 3 mg IVPUSH TID [facility] Last Admin: 02/24/25 09:09 Dose: 3 mg Documented By: ROBBY Docusate Sodium (Docusate Sodium 100 Mg Capsule) 100 mg PO BID [facility] Last Admin: 02/24/25 09:09 Dose: Not Given Documented By: ROBBY Non-Admin Reason: cant be crushed Enoxaparin Sodium (Enoxaparin Sodium 40 Mg/0.4 Ml Syringe) 40 mg SUBCUT Q24H [facility] Last Admin: 02/24/25 09:08 Dose: 40 mg Documented By: ROBBY Fluoxetine HCl (Fluoxetine Hcl 20 Mg Capsule) 40 mg PO BEDTIME NATE On Hold: 02/22/25 14:23 Last Admin: 02/21/25 22:23 Dose: Not Given Documented By: PAPITO Non-Admin Reason: pt refused Glucagon (Glucagon Hcl 1 Mg Vial) 1 mg IM Q20M PRN PRN Reason: low BG Glucose (Glucose Gel 15 Gm Gel..Gram.) 15 gm PO Q15M PRN; Protocol PRN Reason: per Hypoglycemia Standing Ord. Hydralazine HCl (Hydralazine Hcl 20 Mg/Ml Vial) 5 mg IVPUSH Q6H PRN; Protocol PRN Reason: htn Last Admin: 02/23/25 17:30 Dose: 5 mg Documented By: JAYME Valproic Acid 500 mg/ Dextrose 55 mls @ 52.5 mls/hr IV Q12H NATE Last Infusion: 02/24/25 10:11 Dose: Infused Documented By: ROBBY Nutrition (Parenteral) (Parenteral Nutrition) 1,920 mls @ 80 mls/hr IV .Q24H NATE; Protocol Stop: 02/24/25 20:59 Last Admin: 02/23/25 23:02 Dose: 80 mls/hr Documented By: BRIDGET Nutrition (Parenteral) (Parenteral Nutrition) 1,920 mls @ 80 mls/hr IV .Q24H NATE; Protocol Stop: 02/25/25 20:59 Insulin Glargine (Insulin Glargine,Hum.Rec.Anlog 100 Unit/Ml 10 Ml Vial) 24 unit SUBCUT DAILY [facility] On Hold: 02/18/25 20:34 Last Admin: 02/18/25 09:21 Dose: Not Given Documented By: SRINIVASA Non-Admin Reason: not eating Insulin Human Lispro (Insulin Lispro 100 Unit/Ml 3 Ml Vial) 0 unit SUBCUT Q6H NATE; Protocol Last Admin: 02/24/25 09:17 Dose: 4 unit Documented By: ROBBY Magnesium Hydroxide (Milk Of Magnesia 30 Ml Oral.Susp) 30 ml PO DAILY PRN PRN Reason: Constipation Melatonin (Melatonin 3 Mg Tablet) 6 mg PO BEDTIME PRN PRN Reason: Insomnia Metoprolol Tartrate (Metoprolol Tartrate 12.5 Mg Halftab) 12.5 mg PO BID [facility]; Protocol Last Admin: 02/24/25 09:23 Dose: Not Given Documented By: ROBBY Non-Admin Reason: Patient Refused Omeprazole (Omeprazole 20 Mg Capsule.) 20 mg PO DAILY@0630 [facility] Last Admin: 02/24/25 03:02 Dose: Not Given Documented By: BRIDGET Non-Admin Reason: unable to crush Perphenazine (Perphenazine 2 Mg Tablet) 2 mg PO BID [facility] Last Admin: 02/24/25 09:23 Dose: Not Given Documented By: ROBBY Non-Admin Reason: Patient Refused Perphenazine (Perphenazine 4 Mg Tablet) 4 mg PO BID [facility] Last Admin: 02/24/25 09:23 Dose: Not Given Documented By: ROBBY Non-Admin Reason: Patient Refused Pharmacy Consult (Consult Rx Parenteral Nutrition Ordering) 1 each MISCELLANE DAILY PRN PRN Reason: Consult order Senna (Sennosides 8.6 Mg Tablet) 8.6 mg PO DAILY [facility] Last Admin: 02/24/25 09:08 Dose: 8.6 mg Documented By: ROBBY Sodium Biphosphate/Sodium Phosphate (Sodium Phosphate,[place]-Dibasic 133 Ml Enema) 133 ml [place] DAILY PRN PRN Reason: Constipation Sodium Chloride (0.9 % Sodium Chloride Flush 3 Ml Syringe) 3 ml IVFLUSH QSHIFT [facility] Last Admin: 02/24/25 09:09 Dose: 3 ml Documented By: ROBBY Trazodone HCl (Trazodone Hcl 50 Mg Tablet) 50 mg PO BEDTIME MRX1 PRN PRN Reason: Insomnia Labs 02/23/25 06:37 02/24/25 06:09 Labs: Laboratory Results - last 24 hr 02/23/25 02/23/25 02/23/25 15:34 18:09 19:41 Absolute Neuts (auto) Hold Purple Top Anion Gap Estim Creat Clear Calc Estimated GFR POC Glucose 168 H 176 H 179 H Random Glucose Calcium Phosphorus Magnesium Total Bilirubin AST ALT Alkaline Phosphatase Troponin I High Sens C-Reactive Protein Total Protein Albumin 02/24/25 02/24/25 02/24/25 03:45 06:09 09:14 Absolute Neuts (auto) 4.8 Hold Purple Top SEE NOTE Anion Gap 10 L Estim Creat Clear Calc 113.5 Estimated GFR > 60 POC Glucose 267 H 245 H Random Glucose 264 H Calcium 9.1 Phosphorus 3.5 Magnesium 1.9 Total Bilirubin 0.3 AST 25 ALT 19 Alkaline Phosphatase 85 Troponin I High Sens 3.4 D C-Reactive Protein 0.90 H Total Protein 6.1 L Albumin 3.1 L Assessment and Plan (1) Alzheimer's dementia: Status: Acute (2) Schizoaffective disorder: Status: Acute Plan 69M PMH schizoaffective disorder with psychotic features, major depressive disorder, diabetes, GERD presented to the ED on 02/14/2025 for multiple falls. became hypoxic on 02/16/25 acute toxic metabolic encephalopathy and Acute hypoxic respiratory failure due to aspiration pneumonia IV Unasyn day 12/08. blood cultures neg@5days , wean O2 as tolerated, aspiration precautions, off oxygen, goal saturation 91-94 Seen by speech and swallow-purred /nector thick. refuses po intake is low, refuses meds,gets agitated ,passes inappropriate comments. currently on tpn. Schizoaffective disorder with psychotic features si clozapine levels intial on 02/17: 133 , norcloazpine : 50 he refuses psych medsand vital/rx plan: repeat clozapine levels pending , depkote levels : 26 moniter lft, crp daily will switch depakote to iv ,also switched valium to iv. tried to give him po clozapine, also reoffer Trilafon if takes ,also added -gets agiatated. psych is aware to follow up on patient- added trop/ekg qdaily, tele may need zyprexa prn moniter closely for sedation or respiratory comprimise. psych/care team prior to discharge. Diabetes Basal bolus insulin elevated bp: insetting of behaviour agiatation added hydralazine psych will review meds DVT prophylaxis with Lovenox Full Code reason for continued hospitalization:intermittent weak/dec po intake, awaiting cultures,ivf ,iv antibiotics.tpn ,psych to adjust meds (also if po intake does not improved in 1-2 days with behaviour control,may need to consider alternate means of feeding). Quality Stroke Does the patient have a stroke diagnosis?: No VTE Prior VTE?: No VTE Risk Level:: Medical - moderate - high VTE Device Contraindication: Treatment Not Indicated VTE Drug Contraindication: N/A - Med Ordered
[2025-02-24 15:13] VITALS: BP 164/65; PULSE 86; RESP 20; TEMP 36.3; O2SAT 97
[2025-02-24 15:31] LABS: Glucose, Whole Blood 139 mg/dL (60-115)
--- NOTE | 2025-02-24 17:12 | MHC.SL.SWA ---
Speech Pathologist Impression: Risk of Aspiration Due to: Dysphasia Diet Status: Recommend UPGRADE from NPO to PUREE (NDD1) with NECTAR THICK juice, no straw/cup sip only, pills crushed in puree. Liquid Consistency and Strategies for Safe Swallow: Liquid Intake Recommendation: Platea Thick Liquid Intake Strategies: Small Sips No Straws Solid Food Consistency: Dietary Recommendations: Pureed (NDD1) Additional Modifications to Solid Foods: REMOVE KNIFE and FORK from tray if present, leave spoon. Open all items and prepare tray, orient patient to tray. Patient will likely refuse to eat, attempt to encourage/cue, give context to patient, however avoid escalating if patient resists/refuses. Oral Medication Intake: Crushed with Puree Please contact the pharmacy regarding appropriate crushable or liquid drug formulations that are available whenever modified delivery is recommended. Compensatory Strategies and Precautions to be Taken for Safe Swallow: Sitting Upright (90 deg) No Straw Liquids from Cup Small Bites and Sips Alternate Liquids/Solids Supervision While Eating and Drinking for Safe Swallow: Direct Supervision (1:1) Foods to Avoid: Tough, difficult to chew solids. Swallowing Recommended Treatments: Compens. Strategy Educat. Recommendation for Speech: Inpatient Speech Therapy Comment: Patient observed at lunch as ROAD CONTRACTOR noted current sitter setting up lunch for him, patient remained calm and interacted appropriately; ROAD CONTRACTOR kept distance so as not to disrupt this positive interaction. Sitter then offered patient food, drink, however patient then declined, but did not escalate. Sitter said I will take that as a no then. Patient continues to refuse food, has continued to have little or no intake, is currently on PPN/supplemental. Behavior is persistent, however at this point no alteration of diet is not indicated. Recommend continue on current diet of PUREE with NECTAR THICK liquids, pills crushed in puree.. Frequency/Duration: Date Range for Service Req: Timeline to reassess: Drum Dyeing Machine Operator Clinican/Clinical Fellow: No Supervisory Statement: I have reviewed and agree with the student/clinical fellow's documentation: N/A Speech Language Pathologist: Malia Worthy M.A., [facility]-[employer]
[2025-02-24 20:00] VITALS: BP 143/73; PULSE 81; RESP 18; TEMP 36.6; O2SAT 96
[2025-02-24] MEDS: Metoprolol Tartrate 12.5 MG HALFTAB PO (20:43)
[2025-02-24] MEDS: Parenteral Nutrition 1,920 ML 80 ML IV (21:31)
[2025-02-24 21:53] LABS: Glucose, Whole Blood 213 mg/dL (60-115)
[2025-02-25 01:17] LABS: Glucose, Whole Blood 196 mg/dL (60-115)
[2025-02-25 04:00] VITALS: BP 112/54; PULSE 65; RESP 18; TEMP 36.3; O2SAT 95
[2025-02-25 06:55] LABS: Glucose, Whole Blood 233 mg/dL (60-115)
[2025-02-25 07:23] VITALS: BP 148/66; PULSE 96; RESP 18; TEMP 36.2; O2SAT 95
[2025-02-25 07:40] LABS: Albumin Level 2.9 g/dL (3.5-5.0); Anion Gap 9 (12-20); Blood Urea Nitrogen 15 mg/dL (9-16); Calcium 9.1 mg/dL (8.4-10.2); Carbon Dioxide 27 mmol/L (22-29); Chloride 109 mmol/L (96-108); Creatinine Clr Calc Pharmacy 113.5; Estimated Glomerular Filt Rate > 60; Magnesium 1.9 mg/dL (1.6-2.6); Potassium 4.0 mmol/L (3.3-5.1); Sodium 141 mmol/L (135-145)
[2025-02-25 07:41] LABS: Neut%MD 67.9 %; WBCANC 7.1 X10*3/uL
--- NOTE | 2025-02-25 08:50 | HO.PM.IMPN ---
Subjective Subjective Date of Service: 02/25/25 Interval History: dec po intake ,behviour agiatation slightly improving than yesterday Review of Systems took some bites p.o., oral p.o. intake not much improving No fever or cough Review of Systems: Yes all other systems are reviewed and are negative Physical Exam Exam: Exam: Appearance: More awake ,intermittent closes eyes ,ate few bites with speech. cvs: [id number], [id number] res: air entry fair , no rales or wheezin abd: no rebound or guarding ,nt, bs present. ext pulses present , no cyanosis . neuro: non cooperative. Vital Signs: Vital Signs: Last Vital Signs Temp 97.2 F 02/25/25 07:23 Pulse 96 02/25/25 07:23 Resp 18 02/25/25 07:23 BP 148/66 H 02/25/25 07:23 Pulse Ox 95 02/25/25 07:23 O2 Del Method Room Air 02/25/25 07:23 O2 Flow Rate 2 02/19/25 07:01 BMI result Body Mass Index 23.3 Objective Data Active Medications Acetaminophen (Acetaminophen 325 Mg Tablet) 650 mg PO Q6H PRN PRN Reason: Headache/Pain, Scale 1-10 Al Hydroxide/Mg Hydroxide (Magnesium Hydrox/Alum Hydrox 30 Ml Oral.Susp) 30 ml PO Q6H PRN PRN Reason: Heartburn/Nausea Calcium Carbonate (Calcium Carbonate 750 Mg Tab.Chew) 750 mg PO Q4H PRN PRN Reason: Heartburn Clozapine (Clozapine 25 Mg Tablet) 50 mg PO TID [facility] Last Admin: 02/24/25 20:43 Dose: 50 mg Documented By: PAPITO Dextrose (Dextrose 50 % 25 Gm/50 Ml Syringe) 25 gm IVPUSH Q15M PRN; Protocol PRN Reason: per Hypoglycemia Standing Ord. Diazepam (Diazepam 10 Mg/2 Ml Cartridge) 3 mg IVPUSH TID [facility] Last Admin: 02/24/25 20:37 Dose: 3 mg Documented By: PAPITO Docusate Sodium (Docusate Sodium 100 Mg Capsule) 100 mg PO BID [facility] Last Admin: 02/24/25 22:21 Dose: Not Given Documented By: PAPITO Non-Admin Reason: Patient Refused Enoxaparin Sodium (Enoxaparin Sodium 40 Mg/0.4 Ml Syringe) 40 mg SUBCUT Q24H NATE Last Admin: 02/24/25 09:08 Dose: 40 mg Documented By: ROBBY Fluoxetine HCl (Fluoxetine Hcl 20 Mg Capsule) 40 mg PO BEDTIME [facility] On Hold: 02/22/25 14:23 Last Admin: 02/21/25 22:23 Dose: Not Given Documented By: PAPITO Non-Admin Reason: pt refused Glucagon (Glucagon Hcl 1 Mg Vial) 1 mg IM Q20M PRN PRN Reason: low BG Glucose (Glucose Gel 15 Gm Gel..Gram.) 15 gm PO Q15M PRN; Protocol PRN Reason: per Hypoglycemia Standing Ord. Hydralazine HCl (Hydralazine Hcl 20 Mg/Ml Vial) 5 mg IVPUSH Q6H PRN; Protocol PRN Reason: htn Last Admin: 02/23/25 17:30 Dose: 5 mg Documented By: JAYME Valproic Acid 500 mg/ Dextrose 55 mls @ 52.5 mls/hr IV Q12H NATE Last Infusion: 02/24/25 22:36 Dose: Infused Documented By: PAPITO Nutrition (Parenteral) (Parenteral Nutrition) 1,920 mls @ 80 mls/hr IV .Q24H [facility]; Protocol Stop: 02/25/25 20:59 Last Admin: 02/24/25 21:31 Dose: 80 mls/hr Documented By: PAPITO Insulin Glargine (Insulin Glargine,Hum.Rec.Anlog 100 Unit/Ml 10 Ml Vial) 24 unit SUBCUT DAILY [facility] On Hold: 02/18/25 20:34 Last Admin: 02/18/25 09:21 Dose: Not Given Documented By: SRINIVASA Non-Admin Reason: not eating Insulin Human Lispro (Insulin Lispro 100 Unit/Ml 3 Ml Vial) 0 unit SUBCUT Q6H NATE; Protocol Last Admin: 02/25/25 02:39 Dose: 2 unit Documented By: PAPITO Magnesium Hydroxide (Milk Of Magnesia 30 Ml Oral.Susp) 30 ml PO DAILY PRN PRN Reason: Constipation Melatonin (Melatonin 3 Mg Tablet) 6 mg PO BEDTIME PRN PRN Reason: Insomnia Metoprolol Tartrate (Metoprolol Tartrate 12.5 Mg Halftab) 12.5 mg PO BID N[facility]; Protocol Last Admin: 02/24/25 20:43 Dose: 12.5 mg Documented By: PAPITO Omeprazole (Omeprazole 20 Mg Capsule.Dr) 20 mg PO DAILY@0630 [facility] Last Admin: 02/25/25 07:58 Dose: Not Given Documented By: GRACE Non-Admin Reason: Patient Refused Perphenazine (Perphenazine 2 Mg Tablet) 2 mg PO BID [facility] Last Admin: 02/24/25 20:43 Dose: 2 mg Documented By: PAPITO Perphenazine (Perphenazine 4 Mg Tablet) 4 mg PO BID [facility] Last Admin: 02/24/25 20:44 Dose: 4 mg Documented By: PAPITO Pharmacy Consult (Consult Rx Parenteral Nutrition Ordering) 1 each MISCELLANE DAILY PRN PRN Reason: Consult order Senna (Sennosides 8.6 Mg Tablet) 8.6 mg PO DAILY [facility] Last Admin: 02/24/25 09:08 Dose: 8.6 mg Documented By: ROBBY Sodium Biphosphate/Sodium Phosphate (Sodium Phosphate,[place]-Dibasic 133 Ml Enema) 133 ml [place] DAILY PRN PRN Reason: Constipation Sodium Chloride (0.9 % Sodium Chloride Flush 3 Ml Syringe) 3 ml IVFLUSH QSHIFT [facility] Last Admin: 02/24/25 20:42 Dose: 3 ml Documented By: PAPITO Trazodone HCl (Trazodone Hcl 50 Mg Tablet) 50 mg PO BEDTIME MRX1 PRN PRN Reason: Insomnia Labs 02/23/25 06:37 02/25/25 06:51 Labs: Laboratory Results - last 24 hr 02/24/25 02/24/25 02/24/25 09:14 15:25 21:49 Absolute Neuts (auto) Hold Purple Top Anion Gap Estim Creat Clear Calc Estimated GFR POC Glucose 245 H 139 H 213 H Random Glucose Calcium Phosphorus Magnesium Albumin 02/25/25 02/25/25 02/25/25 01:14 05:53 06:51 Absolute Neuts (auto) 4.8 Hold Purple Top SEE NOTE Anion Gap 9 L Estim Creat Clear Calc 113.5 Estimated GFR > 60 POC Glucose 196 H 233 H Random Glucose 254 H Calcium 9.1 Phosphorus 3.5 Magnesium 1.9 Albumin 2.9 L Assessment and Plan (1) Alzheimer's dementia: Status: Acute (2) Schizoaffective disorder: Status: Acute Plan 69M PMH schizoaffective disorder with psychotic features, major depressive disorder, diabetes, GERD presented to the ED on 02/14/2025 for multiple falls. became hypoxic on 02/16/25 acute toxic metabolic encephalopathy and Acute hypoxic respiratory failure due to aspiration pneumonia completed IV Unasyn . blood cultures neg@5days , weaned O2 as tolerated, aspiration precautions, off oxygen, goal saturation 95% Seen by speech and swallow-purred /nector thick. refuses po intake is low, refuses meds intermitent.currently on tpn. will add GI eval-consider for alternate feeding . Schizoaffective disorder with psychotic features si clozapine levels intial on 02/17: 133 , norcloazpine : 50 he refuses psych medsand vital/rx plan: repeat clozapine levels pending , depkote levels : 26 moniter lft, crp ,trop ,ekg daily( rec by psych since patient was on clozapine -refusing) continue depakote and valium to iv. psych adjusted clozapine 50 mg tid moniter closely for sedation or respiratory comprimise. psych/care team prior to discharge. Diabetes Basal bolus insulin elevated bp: insetting of behaviour agiatation added hydralazine psych will review meds DVT prophylaxis with Lovenox Full Code reason for continued hospitalization:intermittent weak/dec po intake, awaiting cultures,ivf ,iv antibiotics.tpn ,psych to adjust meds (also if po intake does not improved in 1-2 days with behaviour control,may need to consider alternate means of feeding). Quality Stroke Does the patient have a stroke diagnosis?: No VTE Prior VTE?: No VTE Risk Level:: Medical - moderate - high VTE Device Contraindication: Treatment Not Indicated VTE Drug Contraindication: N/A - Med Ordered
[2025-02-25 09:24] LABS: Alanine Aminotransferase 16 U/L (0-40); Alkaline Phosphatase 85 U/L (39-117); Aspartate Amino Transferase 21 U/L (5-37); Total Protein 5.8 g/dL (6.5-8.0)
[2025-02-25] MEDS: Metoprolol Tartrate 12.5 MG HALFTAB PO ×2 (09:32→21:39)
[2025-02-25] MEDS: Valproic Acid (as Sodium Salt) 500 MG in Dextrose 5 % 50 ML 52.5 MG IV ×2 (09:45→21:20)
[2025-02-25] MEDS: 0.9 % Sodium Chloride Flush 3 ML SYRINGE IVFLUSH ×3 (09:48→21:40)
--- NOTE | 2025-02-25 09:50 | MHC.CM.PN ---
EMR REVIEWED, PT FROM [facility] W/AGITATION, PT REMAINS DIFICULT TO MAGE AGGRESSIVE BEHAVIORS, PT REFUSING PO INTAKE AND REMAINS ON TPN, PER HOSPITALIST ANTIC CONVERSATION W/GUARDIAN REGARDING GTUBE PT CONT'S TO REFUSE PO NUTRITION, CM WILL CONT TO FOLLOW DC NEEDS.
[2025-02-25 09:56] LABS: Troponin-I High Sensitivity < 2.7 ng/L (<3.5-35.0)
[2025-02-25 11:56] LABS: Glucose, Whole Blood 188 mg/dL (60-115)
[2025-02-25 12:29] VITALS: BP 113/56; PULSE 79; RESP 18; TEMP 36.3; O2SAT 95
--- NOTE | 2025-02-25 13:50 | MHC.SLORD ---
Speech Language Pathology Order Status: Pt seen for dysphagia treatment, pt sitting reclined in bed, sitter at bedside. Pt ate a few bites of food during lunch, but refused further PO. Pt remains on NDD1 with NTL. Pt voicing wet/junky upon speaking today. FREELANCE DATA ENTRY encouraged pt to clear throat, use Yankauer to clear mucous from oral cavity. Pt permitted FREELANCE DATA ENTRY sweep Yankauer across pt cheeks, then pt held wand and suctioned back of his tongue. Trace amounts of mucous removed, pt voicing improved with reflexive cough. Pt remains at moderate risk for aspiration d/t nature and severity of status. FREELANCE DATA ENTRY will continue to follow in assessing pt PO tolerance. Alternative nutrtion may be indicated.
[2025-02-25 15:06] VITALS: BP 116/53; PULSE 85; RESP 18; TEMP 36.8; O2SAT 96
--- NOTE | 2025-02-25 15:47 | P.CNPS_ITS ---
History of Present Illness Date of Service: 02/25/2025 Chief Complaint: Aspiration pneumonia Reason for Consult: Medication management follow up Requesting physician: Colleen Burns Discussed with referring provider: Yes Sources of Information: patient interviewed and chart reviewed HPI Narrative: Patient seen today for assessment for medication management. He sits in his bed with a sitter nearby. He is alert and oriented to time only. He is a poor historian. Speech is muffled and mostly nonsensical. According to nursing and sitter, he has been calm so far during the shift; he swung his arm once as nurse attempted to medicate him in the morning. He has been consistent with taking Clozapine since his second dose yesterday; witnessed him taking his second does of Clozapine in apple sauce today, swung his arm once as nurse attempted to medicated him. He is humorous as this provider attempted to persuade him to take his medication and states are you trying to be funny? He does not appear to be in distress or internally preoccupied. Past Psychiatric History: Not able to obtain due to current mental status Medical Evaluation Reviewed: Yes [facility] Medical History Schizoaffective disorder Family History: Not able to obtain due to current mental status Social History: report he is single, never and has no children Trauma History: Not able to obtain due to current mental status Diagnostics Vital Signs (24Hr): Vital Signs - 24 hr 02/24/25 20:00 02/25/25 04:00 02/25/25 07:23 Temperature 97.8 F 97.3 F 97.2 F Pulse Rate 81 65 96 Respiratory Rate 18 18 18 Blood Pressure 143/73 H 112/54 L 148/66 H Pulse Oximetry 96 95 95 Oxygen Delivery Method Room Air Room Air Room Air 02/25/25 12:29 02/25/25 15:06 Temperature 97.4 F 98.3 F Pulse Rate 79 85 Respiratory Rate 18 18 Blood Pressure 113/56 L 116/53 L Pulse Oximetry 95 96 Oxygen Delivery Method Room Air Room Air BMI result Body Mass Index 23.3 Labs 02/26/25 05:54 02/26/25 05:54 Labs: Laboratory Results - last 48 hr 02/23/25 02/23/25 02/24/25 18:09 19:41 03:45 Absolute Neuts (auto) Hold Purple Top Sodium Potassium Chloride Carbon Dioxide Anion Gap BUN Creatinine Estim Creat Clear Calc Estimated GFR POC Glucose 176 H 179 H 267 H Random Glucose Calcium Phosphorus Magnesium Total Bilirubin Direct Bilirubin AST ALT Alkaline Phosphatase Troponin I High Sens C-Reactive Protein Total Protein Albumin 02/24/25 02/24/25 02/24/25 06:09 09:14 15:25 Absolute Neuts (auto) 4.8 Hold Purple Top SEE NOTE Sodium 143 Potassium 3.6 Chloride 111 H Carbon Dioxide 26 Anion Gap 10 L BUN 13 Creatinine 0.59 Estim Creat Clear Calc 113.5 Estimated GFR > 60 POC Glucose 245 H 139 H Random Glucose 264 H Calcium 9.1 Phosphorus 3.5 Magnesium 1.9 Total Bilirubin 0.3 Direct Bilirubin AST 25 ALT 19 Alkaline Phosphatase 85 Troponin I High Sens 3.4 D C-Reactive Protein 0.90 H Total Protein 6.1 L Albumin 3.1 L 02/24/25 02/25/25 02/25/25 21:49 01:14 05:53 Absolute Neuts (auto) Hold Purple Top Sodium Potassium Chloride Carbon Dioxide Anion Gap BUN Creatinine Estim Creat Clear Calc Estimated GFR POC Glucose 213 H 196 H 233 H Random Glucose Calcium Phosphorus Magnesium Total Bilirubin Direct Bilirubin AST ALT Alkaline Phosphatase Troponin I High Sens C-Reactive Protein Total Protein Albumin 02/25/25 02/25/25 02/25/25 06:51 09:14 11:44 Absolute Neuts (auto) 4.8 Hold Purple Top SEE NOTE Sodium 141 Potassium 4.0 Chloride 109 H Carbon Dioxide 27 Anion Gap 9 L BUN 15 Creatinine 0.59 Estim Creat Clear Calc 113.5 Estimated GFR > 60 POC Glucose 188 H Random Glucose 254 H Calcium 9.1 Phosphorus 3.5 Magnesium 1.9 Total Bilirubin 0.2 Direct Bilirubin < 0.2 AST 21 ALT 16 Alkaline Phosphatase 85 Troponin I High Sens < 2.7 C-Reactive Protein Total Protein 5.8 L Albumin 2.9 L Imaging Radiology Impressions: ITS Impressions Chest X-Ray 02/16/25 15:27 IMPRESSION: Left basilar atelectasis, pneumonia not excluded Electronically signed by: Nick Montana MD 02/16/2025 03:39 PM EDT RP Mental Status Exam Mental Status Exam Narrative: Appearance: Casually dressed, adequate hygiene Behavior: Calm and cooperative throughout the interview. Eye contact is appropriate, and there are no signs of psychomotor agitation or retardation Speech: poverty of speech, muffled, and mostly nonsensical Thought process: Disorganized, tangential Thought content: Not assessed Mood: Calm Affect: Blunted SI: Not assessed HI: Not assessed VH/AH: Not assessed Delusions: Not assessed Insight/judgment: Impaired insight and judgment Memory/cog: Alert, oriented x 1 Medications Medications Current Medications Acetaminophen (Acetaminophen 325 Mg Tablet) 650 mg PO Q6H PRN PRN Reason: Headache/Pain, Scale 1-10 Al Hydroxide/Mg Hydroxide (Magnesium Hydrox/Alum Hydrox 30 Ml Oral.Susp) 30 ml PO Q6H PRN PRN Reason: Heartburn/Nausea Calcium Carbonate (Calcium Carbonate 750 Mg Tab.Chew) 750 mg PO Q4H PRN PRN Reason: Heartburn Clozapine (Clozapine 25 Mg Tablet) 50 mg PO TID [facility] Last Admin: 02/25/25 09:32 Dose: 50 mg Dextrose (Dextrose 50 % 25 Gm/50 Ml Syringe) 25 gm IVPUSH Q15M PRN; Protocol PRN Reason: per Hypoglycemia Standing Ord. Diazepam (Diazepam 10 Mg/2 Ml Cartridge) 3 mg IVPUSH TID [facility] Last Admin: 02/25/25 09:20 Dose: Not Given Docusate Sodium (Docusate Sodium 100 Mg Capsule) 100 mg PO BID [facility] Last Admin: 02/25/25 09:33 Dose: Not Given Enoxaparin Sodium (Enoxaparin Sodium 40 Mg/0.4 Ml Syringe) 40 mg SUBCUT Q24H [facility] Last Admin: 02/25/25 09:29 Dose: 40 mg Fluoxetine HCl (Fluoxetine Hcl 20 Mg Capsule) 40 mg PO BEDTIME [facility] On Hold: 02/22/25 14:23 Last Admin: 02/21/25 22:23 Dose: Not Given Glucagon (Glucagon Hcl 1 Mg Vial) 1 mg IM Q20M PRN PRN Reason: low BG Glucose (Glucose Gel 15 Gm Gel..Gram.) 15 gm PO Q15M PRN; Protocol PRN Reason: per Hypoglycemia Standing Ord. Hydralazine HCl (Hydralazine Hcl 20 Mg/Ml Vial) 5 mg IVPUSH Q6H PRN; Protocol PRN Reason: htn Last Admin: 02/23/25 17:30 Dose: 5 mg Valproic Acid 500 mg/ Dextrose 55 mls @ 52.5 mls/hr IV Q12H [facility] Last Infusion: 02/25/25 13:03 Dose: Infused Nutrition (Parenteral) (Parenteral Nutrition) 1,920 mls @ 80 mls/hr IV .Q24H [facility]; Protocol Stop: 02/25/25 20:59 Last Admin: 02/24/25 21:31 Dose: 80 mls/hr Nutrition (Parenteral) (Parenteral Nutrition) 1,920 mls @ 80 mls/hr IV .Q24H [facility]; Protocol Stop: 02/26/25 20:59 Insulin Glargine (Insulin Glargine,Hum.Rec.Anlog 100 Unit/Ml 10 Ml Vial) 24 unit SUBCUT DAILY [facility] On Hold: 02/18/25 20:34 Last Admin: 02/18/25 09:21 Dose: Not Given Insulin Human Lispro (Insulin Lispro 100 Unit/Ml 3 Ml Vial) 0 unit SUBCUT Q6H [facility]; Protocol Last Admin: 02/25/25 09:29 Dose: 6 unit Magnesium Hydroxide (Milk Of Magnesia 30 Ml Oral.Susp) 30 ml PO DAILY PRN PRN Reason: Constipation Melatonin (Melatonin 3 Mg Tablet) 6 mg PO BEDTIME PRN PRN Reason: Insomnia Metoprolol Tartrate (Metoprolol Tartrate 12.5 Mg Halftab) 12.5 mg PO BID [facility]; Protocol Last Admin: 02/25/25 09:32 Dose: 12.5 mg Omeprazole (Omeprazole 20 Mg Capsule.Dr) 20 mg PO DAILY@0630 [facility] Last Admin: 02/25/25 07:58 Dose: Not Given Perphenazine (Perphenazine 2 Mg Tablet) 2 mg PO BID [facility] Last Admin: 02/25/25 09:32 Dose: 2 mg Perphenazine (Perphenazine 4 Mg Tablet) 4 mg PO BID [facility] Last Admin: 02/25/25 09:32 Dose: 4 mg Pharmacy Consult (Consult Rx Parenteral Nutrition Ordering) 1 each MISCELLANE DAILY PRN PRN Reason: Consult order Senna (Sennosides 8.6 Mg Tablet) 8.6 mg PO DAILY [facility] Last Admin: 02/25/25 09:32 Dose: 8.6 mg Sodium Biphosphate/Sodium Phosphate (Sodium Phosphate,[place]-Dibasic 133 Ml Enema) 133 ml [place] DAILY PRN PRN Reason: Constipation Sodium Chloride (0.9 % Sodium Chloride Flush 3 Ml Syringe) 3 ml IVFLUSH QSHIFT [facility] Last Admin: 02/25/25 09:48 Dose: 3 ml Trazodone HCl (Trazodone Hcl 50 Mg Tablet) 50 mg PO BEDTIME MRX1 PRN PRN Reason: Insomnia Allergies Allergies Allergy/AdvReac Type Severity Reaction Status Date / Time No Known Allergies Allergy Verified 02/14/25 08:42 Assessment & Plan Assessment & Plan (1) Schizoaffective disorder: Status: Acute Code(s): F25.9 - Schizoaffective disorder, unspecified Assessment and Plan: HPI Patient seen today for assessment for medication management. He sits in his bed with a sitter nearby. He is alert and oriented to time only. He is a poor historian. Speech is muffled and mostly nonsensical. According to nursing and sitter, he has been calm so far during the shift; he swung his arm once as nurse attempted to medicate him in the morning. He has been consistent with taking Clozapine since his second dose yesterday; witnessed him taking his second does of Clozapine in apple sauce today, swung his arm once as nurse attempted to medicated him. He is humorous as this provider attempted to persuade him to take his medication and states are you trying to be funny? He does not appear to be in distress or internally preoccupied. Plan Serial troponin and CBC have been unremarkable. Per hospitalist he his not always compliant with serial EKG, recent EKG on 02/23 revealed A-flutter. May continue to up titrate Clozapine in a few days if he continues to be compliant. Recent VPA is low. Now that he is receiving IV Depakote, the plan is to recheck VPA in a couple of days and increase the dose if low or subtherapeutic. CRP is slightly low but trending down, recent level is 0.83. Continue current treatment regimen, including serial labs and EKG. Total time managing care of this patient today ____ minutes. Patient educated on: therapeutic strategies
[2025-02-25 15:51] LABS: Glucose, Whole Blood 235 mg/dL (60-115)
[2025-02-25 19:23] VITALS: BP 104/60; PULSE 87; RESP 17; TEMP 36.9; O2SAT 96
[2025-02-25 21:21] LABS: Glucose, Whole Blood 219 mg/dL (60-115)
[2025-02-25] MEDS: Parenteral Nutrition 1,920 ML 80 ML IV (21:38)
[2025-02-25 23:45] VITALS: BP 115/61; PULSE 83; RESP 20; TEMP 36.7; O2SAT 92
[2025-02-26 01:47] LABS: Glucose, Whole Blood 232 mg/dL (60-115)
[2025-02-26 03:48] VITALS: BP 117/63; PULSE 76; RESP 18; TEMP 36.7; O2SAT 94
[2025-02-26 06:16] LABS: Glucose, Whole Blood 244 mg/dL (60-115)
[2025-02-26 06:21] LABS: Hematocrit 36.5 % (42.0-52.0); Hemoglobin 12.5 g/dl (14.0-18.0); Mean Corpuscular HGB Conc 34.2 g/dl (31.0-36.0); Mean Corpuscular Hemoglobin 30.9 pg (27.0-33.0); Mean Corpuscular Volume 90.1 fL (80.0-98.0); NRBC Abs Auto 0.000 X10*3/uL (0.0-0.012); NRBC Pct Auto 0.0 /100WBC (0.0-0.2); Platelet Count 187 X10*3/uL (160-400); Red Blood Count 4.05 X10*6/uL (4.60-5.80); White Blood Count 6.9 X10*3/uL (4.8-10.8)
[2025-02-26 06:39] LABS: Alanine Aminotransferase 14 U/L (0-40); Albumin Level 3.0 g/dL (3.5-5.0); Alkaline Phosphatase 90 U/L (39-117); Anion Gap 12 (12-20); Aspartate Amino Transferase 19 U/L (5-37); Blood Urea Nitrogen 15 mg/dL (9-16); Calcium 9.2 mg/dL (8.4-10.2); Carbon Dioxide 26 mmol/L (22-29); Chloride 107 mmol/L (96-108); Creatinine Clr Calc Pharmacy 111.6; Estimated Glomerular Filt Rate > 60; Magnesium 1.9 mg/dL (1.6-2.6); Potassium 4.1 mmol/L (3.3-5.1); Sodium 141 mmol/L (135-145); Total Protein 6.2 g/dL (6.5-8.0)
[2025-02-26 06:41] LABS: Troponin-I High Sensitivity < 2.7 ng/L (<3.5-35.0)
[2025-02-26 07:17] VITALS: BP 123/62; PULSE 66; RESP 16; TEMP 36.3; O2SAT 95
--- NOTE | 2025-02-26 09:07 | MHC.CLN ---
F/U POOR PO INTAKE TAKING SIPS AND BITES; CONTINUES TO REFUSE REVIEWED LABS DISCUSSED WITH PHARMACY CONTINUE PPN AT MAX GOAL RATE 80ML/HR WITH 91G LIPIDS PROVIDES 1889 TOTAL KCALS (28KCALS/KG), 192G DEXTROSE, 82G PROTEIN (1.2G/KG) REPLETE LYTES NEEDED GOAL TO REDUCE PPN PO INTAKE IMPROVES
[2025-02-26] MEDS: Valproic Acid (as Sodium Salt) 500 MG in Dextrose 5 % 50 ML 52.5 MG IV ×2 (09:28→20:19)
[2025-02-26] MEDS: Metoprolol Tartrate 12.5 MG HALFTAB PO ×2 (09:28→20:14)
[2025-02-26] MEDS: 0.9 % Sodium Chloride Flush 3 ML SYRINGE IVFLUSH ×2 (09:50→20:19)
[2025-02-26 11:10] VITALS: BP 134/72; PULSE 83; RESP 16; TEMP 36.1; O2SAT 97
[2025-02-26 11:20] LABS: Glucose, Whole Blood 242 mg/dL (60-115)
[2025-02-26 11:33] LABS: Clozapine (Clozaril) 147 mcg/L
--- NOTE | 2025-02-26 12:17 | P.PNIM_ITS ---
Subjective Subjective Date of Service: 02/26/25 Interval History: non participatory Physical Exam 2 Exam: Exam: non participatory, wont open eyes Vital Signs: Vital Signs: Last Vital Signs Temp 97.0 F 02/26/25 11:10 Pulse 83 02/26/25 11:10 Resp 16 02/26/25 11:10 BP 134/72 02/26/25 11:10 Pulse Ox 97 02/26/25 11:10 O2 Del Method Room Air 02/26/25 11:10 O2 Flow Rate 2 02/19/25 07:01 BMI result Body Mass Index 23.3 Objective Data Active Medications Acetaminophen (Acetaminophen 325 Mg Tablet) 650 mg PO Q6H PRN PRN Reason: Headache/Pain, Scale 1-10 Al Hydroxide/Mg Hydroxide (Magnesium Hydrox/Alum Hydrox 30 Ml Oral.Susp) 30 ml PO Q6H PRN PRN Reason: Heartburn/Nausea Calcium Carbonate (Calcium Carbonate 750 Mg Tab.Chew) 750 mg PO Q4H PRN PRN Reason: Heartburn Clozapine (Clozapine 25 Mg Tablet) 50 mg PO TID [facility] Last Admin: 02/26/25 09:28 Dose: 50 mg Documented By: GRACE Dextrose (Dextrose 50 % 25 Gm/50 Ml Syringe) 25 gm IVPUSH Q15M PRN; Protocol PRN Reason: per Hypoglycemia Standing Ord. Diazepam (Diazepam 10 Mg/2 Ml Cartridge) 3 mg IVPUSH TID [facility] Last Admin: 02/26/25 09:50 Dose: Not Given Documented By: GRACE Non-Admin Reason: Physician Held Med Docusate Sodium (Docusate Sodium 100 Mg Capsule) 100 mg PO BID [facility] Last Admin: 02/26/25 09:28 Dose: 100 mg Documented By: GRACE Enoxaparin Sodium (Enoxaparin Sodium 40 Mg/0.4 Ml Syringe) 40 mg SUBCUT Q24H [facility] Last Admin: 02/26/25 09:28 Dose: 40 mg Documented By: GRACE Fluoxetine HCl (Fluoxetine Hcl 20 Mg Capsule) 40 mg PO BEDTIME [facility] On Hold: 02/22/25 14:23 Last Admin: 02/21/25 22:23 Dose: Not Given Documented By: PAPITO Non-Admin Reason: pt refused Glucagon (Glucagon Hcl 1 Mg Vial) 1 mg IM Q20M PRN PRN Reason: low BG Glucose (Glucose Gel 15 Gm Gel..Gram.) 15 gm PO Q15M PRN; Protocol PRN Reason: per Hypoglycemia Standing Ord. Hydralazine HCl (Hydralazine Hcl 20 Mg/Ml Vial) 5 mg IVPUSH Q6H PRN; Protocol PRN Reason: htn Last Admin: 02/23/25 17:30 Dose: 5 mg Documented By: JAYME Valproic Acid 500 mg/ Dextrose 55 mls @ 52.5 mls/hr IV Q12H [facility] Last Admin: 02/26/25 09:28 Dose: 52.5 mls/hr Documented By: GRACE Nutrition (Parenteral) (Parenteral Nutrition) 1,920 mls @ 80 mls/hr IV .Q24H [facility]; Protocol Stop: 02/26/25 20:59 Last Admin: 02/25/25 21:38 Dose: 80 mls/hr Documented By: PAPITO Nutrition (Parenteral) (Parenteral Nutrition) 1,920 mls @ 80 mls/hr IV .Q24H [facility]; Protocol Stop: 02/27/25 20:59 Insulin Glargine (Insulin Glargine,Hum.Rec.Anlog 100 Unit/Ml 10 Ml Vial) 24 unit SUBCUT DAILY [facility] On Hold: 02/18/25 20:34 Last Admin: 02/18/25 09:21 Dose: Not Given Documented By: SRINIVASA Non-Admin Reason: not eating Insulin Human Lispro (Insulin Lispro 100 Unit/Ml 3 Ml Vial) 0 unit SUBCUT QIDACHS [facility]; Protocol Last Admin: 02/26/25 12:13 Dose: 4 unit Documented By: GRACE Magnesium Hydroxide (Milk Of Magnesia 30 Ml Oral.Susp) 30 ml PO DAILY PRN PRN Reason: Constipation Melatonin (Melatonin 3 Mg Tablet) 6 mg PO BEDTIME PRN PRN Reason: Insomnia Metoprolol Tartrate (Metoprolol Tartrate 12.5 Mg Halftab) 12.5 mg PO BID [facility]; Protocol Last Admin: 02/26/25 09:28 Dose: 12.5 mg Documented By: GRACE Omeprazole (Omeprazole 20 Mg Capsule.Dr) 20 mg PO DAILY@0630 [facility] Last Admin: 02/26/25 07:16 Dose: Not Given Documented By: GRACE Non-Admin Reason: Patient Asleep Perphenazine (Perphenazine 2 Mg Tablet) 2 mg PO BID [facility] Last Admin: 02/26/25 09:28 Dose: 2 mg Documented By: GRACE Perphenazine (Perphenazine 4 Mg Tablet) 4 mg PO BID [facility] Last Admin: 02/26/25 09:28 Dose: 4 mg Documented By: GRACE Pharmacy Consult (Consult Rx Parenteral Nutrition Ordering) 1 each MISCELLANE DAILY PRN PRN Reason: Consult order Senna (Sennosides 8.6 Mg Tablet) 8.6 mg PO DAILY [facility] Last Admin: 02/26/25 09:28 Dose: 8.6 mg Documented By: GRACE Sodium Biphosphate/Sodium Phosphate (Sodium Phosphate,[place]-Dibasic 133 Ml Enema) 133 ml [place] DAILY PRN PRN Reason: Constipation Sodium Chloride (0.9 % Sodium Chloride Flush 3 Ml Syringe) 3 ml IVFLUSH QSHIFT [facility] Last Admin: 02/26/25 09:50 Dose: 3 ml Documented By: GRACE Trazodone HCl (Trazodone Hcl 50 Mg Tablet) 50 mg PO BEDTIME MRX1 PRN PRN Reason: Insomnia Last Admin: 02/25/25 21:39 Dose: 50 mg Documented By: PAPITO Labs 02/26/25 05:54 02/26/25 05:54 Labs: Laboratory Results - last 24 hr 02/22/25 02/25/25 02/25/25 13:37 15:47 21:16 MCV MCH MCHC RDW Plt Count MPV Absolute Nucleated RBC Nucleated RBC % (auto) Anion Gap Estim Creat Clear Calc Estimated GFR POC Glucose 235 H 219 H Random Glucose Calcium Phosphorus Magnesium Total Bilirubin AST ALT Alkaline Phosphatase Troponin I High Sens C-Reactive Protein Total Protein Albumin Clozapine 147 Norclozapine 65 02/26/25 02/26/25 02/26/25 01:43 05:54 05:57 MCV 90.1 MCH 30.9 MCHC 34.2 RDW 13.8 Plt Count 187 MPV 9.7 Absolute Nucleated RBC 0.000 Nucleated RBC % (auto) 0.0 Anion Gap 12 Estim Creat Clear Calc 111.6 Estimated GFR > 60 POC Glucose 232 H 244 H Random Glucose 239 H Calcium 9.2 Phosphorus 3.6 Magnesium 1.9 Total Bilirubin 0.3 AST 19 ALT 14 Alkaline Phosphatase 90 Troponin I High Sens < 2.7 C-Reactive Protein 0.83 H Total Protein 6.2 L Albumin 3.0 L Clozapine Norclozapine 02/26/25 11:13 MCV MCH MCHC RDW Plt Count MPV Absolute Nucleated RBC Nucleated RBC % (auto) Anion Gap Estim Creat Clear Calc Estimated GFR POC Glucose 242 H Random Glucose Calcium Phosphorus Magnesium Total Bilirubin AST ALT Alkaline Phosphatase Troponin I High Sens C-Reactive Protein Total Protein Albumin Clozapine Norclozapine Assessment and Plan (1) Alzheimer's dementia: Status: Acute (2) Schizoaffective disorder: Status: Acute Plan 69M PMH schizoaffective disorder with psychotic features, major depressive disorder, diabetes, GERD presented to the ED on 02/14/2025 for multiple falls. became hypoxic on 02/16/25 acute toxic metabolic encephalopathy and Acute hypoxic respiratory failure due to aspiration pneumonia completed IV Unasyn . blood cultures neg@5days , weaned O2 as tolerated, aspiration precautions, off oxygen, goal saturation 95% Seen by speech and swallow-purred /nector thick. refuses po intake is low, refuses meds intermitent.currently on tpn. ?need for peg Schizoaffective disorder with psychotic features si clozapine levels intial on 02/17: 133 , norcloazpine : 50 he intermittently refuses psych medsand vital/rx continue depakote and valium to iv. psych adjusted clozapine 50 mg tid moniter closely for sedation or respiratory compromise. psych/care team prior to discharge. Diabetes Basal bolus insulin htn hydralazine DVT prophylaxis with Lovenox Full Code reason for continued hospitalization:intermittent weak/dec po intake, awaiting cultures,ivf ,iv antibiotics.tpn ,psych to adjust meds (also if po intake does not improved in 1-2 days with behaviour control,may need to consider alternate means of feeding). Quality Stroke Does the patient have a stroke diagnosis?: No VTE Prior VTE?: No VTE Risk Level:: Medical - moderate - high VTE Device Contraindication: Treatment Not Indicated VTE Drug Contraindication: N/A - Med Ordered
[2025-02-26 14:53] VITALS: BP 126/71; PULSE 75; RESP 18; TEMP 36.4; O2SAT 96
--- NOTE | 2025-02-26 15:39 | MHC.SL.SWA ---
Speech Pathologist Impression: Risk of Aspiration Due to: Dysphasia Diet Status: Recommend continue on PUREE (NDD1) with NECTAR THICK juice, no straw/cup sip only, pills crushed in puree. Liquid Consistency and Strategies for Safe Swallow: Liquid Intake Recommendation: [place] Thick Liquid Intake Strategies: Small Sips No Straws Solid Food Consistency: Dietary Recommendations: Pureed (NDD1) Additional Modifications to Solid Foods: REMOVE KNIFE and FORK from tray if present, leave spoon. Open all items and prepare tray, orient patient to tray. Patient will likely refuse to eat, attempt to encourage/cue, give context to patient, however avoid escalating if patient resists/refuses. Oral Medication Intake: Crushed with Puree Please contact the pharmacy regarding appropriate crushable or liquid drug formulations that are available whenever modified delivery is recommended. Compensatory Strategies and Precautions to be Taken for Safe Swallow: Sitting Upright (90 deg) No Straw Liquids from Cup Small Bites and Sips Alternate Liquids/Solids Supervision While Eating and Drinking for Safe Swallow: Direct Supervision (1:1) Foods to Avoid: Tough, difficult to chew solids. Swallowing Recommended Treatments: Compens. Strategy Educat. Recommendation for Speech: Inpatient Speech Therapy Comment: Patient seen to attempt snack this pm. Sitter was present in room, lunch was still present, sitter reported patient refused. Patient had eyes closed, [employer] asked if he was awake and wanted to have some ice cream. Patient opened eyes, asked what kind and then accepted bite of chocolate ice cream, which he orally manipulated and swallowed. Patient asked if there were other ice cream flavors, he was given a run down of what was available and asked if he would like any, patient then said I can't tell the difference. Patient was asked if he had sense of taste, but gave vague response. Patient accepted one more bite of ice cream. Patient offered sip of juice, patient declined, stating I don't like people watching me. [employer] noted that he had reported to psychologist that he was agoraphobic, which patient nodded agreement to. Interaction noted her as patient was considerably more appropriate today, and did take a couple of bites of food. Patient did have a few comments that were unusual (e.g. asked Am I on the secret sixth floor kay? ) but was not combative or verbally eschatological. [employer] will continue to follow, no change to diet at this point as unable to assess for upgrade. Frequency/Duration: Date Range for Service Req: Timeline to reassess: [place] Clinican/Clinical Fellow: No Supervisory Statement: I have reviewed and agree with the student/clinical fellow's documentation: N/A Speech Language Pathologist: Malia Worthy M.A., CCC-[employer]
[2025-02-26 15:43] LABS: Glucose, Whole Blood 259 mg/dL (60-115)
[2025-02-26 16:13] LABS: Glucose, Whole Blood 335 mg/dL (60-115)
[2025-02-26 19:33] VITALS: BP 127/60; PULSE 75; RESP 16; TEMP 36.7; O2SAT 96
[2025-02-26 20:39] LABS: Glucose, Whole Blood 221 mg/dL (60-115)
[2025-02-26] MEDS: Parenteral Nutrition 1,920 ML 80 ML IV (21:44)
[2025-02-26 23:51] VITALS: BP 127/60; PULSE 66; RESP 16; TEMP 36.4; O2SAT 99
[2025-02-27 03:46] VITALS: BP 115/59; PULSE 62; RESP 16; TEMP 36.4; O2SAT 96
[2025-02-27 07:19] LABS: Neut%MD 69.7 %; WBCANC 7.0 X10*3/uL
[2025-02-27 07:35] LABS: Albumin Level 3.1 g/dL (3.5-5.0); Anion Gap 11 (12-20); Blood Urea Nitrogen 16 mg/dL (9-16); Calcium 9.4 mg/dL (8.4-10.2); Carbon Dioxide 30 mmol/L (22-29); Chloride 102 mmol/L (96-108); Creatinine Clr Calc Pharmacy 104.7; Estimated Glomerular Filt Rate > 60; Magnesium 1.9 mg/dL (1.6-2.6); Potassium 4.4 mmol/L (3.3-5.1); Sodium 139 mmol/L (135-145)
[2025-02-27 07:40] VITALS: BP 109/58; PULSE 62; RESP 20; TEMP 36.6; O2SAT 97
[2025-02-27 07:47] LABS: Glucose, Whole Blood 272 mg/dL (60-115)
[2025-02-27] MEDS: 0.9 % Sodium Chloride Flush 3 ML SYRINGE IVFLUSH ×3 (08:51→21:52)
[2025-02-27] MEDS: Valproic Acid (as Sodium Salt) 500 MG in Dextrose 5 % 50 ML 50 MG IV (08:52)
[2025-02-27] MEDS: diazePAM 10 MG/2 ML CARTRIDGE 3 MG IVPUSH ×3 (08:53→21:53)
--- NOTE | 2025-02-27 10:14 | MHC.CLN ---
F/U POOR PO INTAKE CONTINUES TAKING SIPS AND BITES; CONTINUES TO REFUSE REVIEWED LABS DISCUSSED WITH PHARMACY CONTINUE PPN AT MAX GOAL RATE 80ML/HR WITH 91G LIPIDS PROVIDES 1889 TOTAL KCALS (28KCALS/KG), 192G DEXTROSE, 82G PROTEIN (1.2G/KG) REPLETE LYTES NEEDED GOAL TO REDUCE PPN PO INTAKE IMPROVES RD CAN BE REACHED VIA TIGER CONNECT DURING OFF HOURS IF NEEDED
[2025-02-27 11:19] LABS: Glucose, Whole Blood 238 mg/dL (60-115)
--- NOTE | 2025-02-27 12:14 | P.PNIM_ITS ---
Subjective Subjective Date of Service: 02/27/25 Interval History: non participatory Physical Exam 2 Exam: Exam: non participatory, wont open eyes Vital Signs: Vital Signs: Last Vital Signs Temp 97.8 F 02/27/25 07:40 Pulse 62 02/27/25 07:40 Resp 20 02/27/25 07:40 BP 109/58 L 02/27/25 07:40 Pulse Ox 97 02/27/25 07:40 O2 Del Method Room Air 02/27/25 07:40 O2 Flow Rate 2 02/19/25 07:01 BMI result Body Mass Index 23.3 Objective Data Active Medications Acetaminophen (Acetaminophen 325 Mg Tablet) 650 mg PO Q6H PRN PRN Reason: Headache/Pain, Scale 1-10 Al Hydroxide/Mg Hydroxide (Magnesium Hydrox/Alum Hydrox 30 Ml Oral.Susp) 30 ml PO Q6H PRN PRN Reason: Heartburn/Nausea Calcium Carbonate (Calcium Carbonate 750 Mg Tab.Chew) 750 mg PO Q4H PRN PRN Reason: Heartburn Clozapine (Clozapine 25 Mg Tablet) 50 mg PO TID [facility] Last Admin: 02/26/25 20:14 Dose: 50 mg Documented By: BILL Dextrose (Dextrose 50 % 25 Gm/50 Ml Syringe) 25 gm IVPUSH Q15M PRN; Protocol PRN Reason: per Hypoglycemia Standing Ord. Diazepam (Diazepam 10 Mg/2 Ml Cartridge) 3 mg IVPUSH TID [facility] Last Admin: 02/27/25 08:53 Dose: 3 mg Documented By: JAYSHREE Docusate Sodium (Docusate Sodium 100 Mg Capsule) 100 mg PO BID [facility] Last Admin: 02/27/25 08:56 Dose: Not Given Documented By: JAYSHREE Non-Admin Reason: Patient Refused Enoxaparin Sodium (Enoxaparin Sodium 40 Mg/0.4 Ml Syringe) 40 mg SUBCUT Q24H [facility] Last Admin: 02/27/25 09:01 Dose: 40 mg Documented By: JAYSHREE Fluoxetine HCl (Fluoxetine Hcl 20 Mg Capsule) 40 mg PO BEDTIME [facility] On Hold: 02/22/25 14:23 Last Admin: 02/21/25 22:23 Dose: Not Given Documented By: PAPITO Non-Admin Reason: pt refused Glucagon (Glucagon Hcl 1 Mg Vial) 1 mg IM Q20M PRN PRN Reason: low BG Glucose (Glucose Gel 15 Gm Gel..Gram.) 15 gm PO Q15M PRN; Protocol PRN Reason: per Hypoglycemia Standing Ord. Hydralazine HCl (Hydralazine Hcl 20 Mg/Ml Vial) 5 mg IVPUSH Q6H PRN; Protocol PRN Reason: htn Last Admin: 02/23/25 17:30 Dose: 5 mg Documented By: JAYME Valproic Acid 500 mg/ Dextrose 55 mls @ 52.5 mls/hr IV Q12H [facility] Last Admin: 02/27/25 08:52 Dose: 50 mls/hr Documented By: JAYSHREE Nutrition (Parenteral) (Parenteral Nutrition) 1,920 mls @ 80 mls/hr IV .Q24H [facility]; Protocol Stop: 02/27/25 20:59 Last Admin: 02/26/25 21:44 Dose: 80 mls/hr Documented By: BILL Nutrition (Parenteral) (Parenteral Nutrition) 1,920 mls @ 80 mls/hr IV .Q24H [facility]; Protocol Stop: 02/28/25 20:59 Insulin Glargine (Insulin Glargine,Hum.Rec.Anlog 100 Unit/Ml 10 Ml Vial) 24 unit SUBCUT DAILY [facility] On Hold: 02/18/25 20:34 Last Admin: 02/18/25 09:21 Dose: Not Given Documented By: SRINIVASA Non-Admin Reason: not eating Insulin Human Lispro (Insulin Lispro 100 Unit/Ml 3 Ml Vial) 0 unit SUBCUT QIDACHS [facility]; Protocol Last Admin: 02/27/25 11:58 Dose: 4 unit Documented By: JAYSHREE Magnesium Hydroxide (Milk Of Magnesia 30 Ml Oral.Susp) 30 ml PO DAILY PRN PRN Reason: Constipation Melatonin (Melatonin 3 Mg Tablet) 6 mg PO BEDTIME PRN PRN Reason: Insomnia Metoprolol Tartrate (Metoprolol Tartrate 12.5 Mg Halftab) 12.5 mg PO BID [facility]; Protocol Last Admin: 02/26/25 20:14 Dose: 12.5 mg Documented By: BILL Omeprazole (Omeprazole 20 Mg Capsule.Dr) 20 mg PO DAILY@0630 [facility] Last Admin: 02/27/25 05:56 Dose: Not Given Documented By: BILL Non-Admin Reason: Patient Refused Perphenazine (Perphenazine 2 Mg Tablet) 2 mg PO BID [facility] Last Admin: 02/26/25 20:14 Dose: 2 mg Documented By: BILL Perphenazine (Perphenazine 4 Mg Tablet) 4 mg PO BID [facility] Last Admin: 02/26/25 20:14 Dose: 4 mg Documented By: BILL Pharmacy Consult (Consult Rx Parenteral Nutrition Ordering) 1 each MISCELLANE DAILY PRN PRN Reason: Consult order Senna (Sennosides 8.6 Mg Tablet) 8.6 mg PO DAILY [facility] Last Admin: 02/26/25 09:28 Dose: 8.6 mg Documented By: FOSTEKJose Sodium Biphosphate/Sodium Phosphate (Sodium Phosphate,[place]-Dibasic 133 Ml Enema) 133 ml [place] DAILY PRN PRN Reason: Constipation Sodium Chloride (0.9 % Sodium Chloride Flush 3 Ml Syringe) 3 ml IVFLUSH QSHIFT [facility] Last Admin: 02/27/25 08:51 Dose: 3 ml Documented By: JAYSHREE Trazodone HCl (Trazodone Hcl 50 Mg Tablet) 50 mg PO BEDTIME MRX1 PRN PRN Reason: Insomnia Last Admin: 02/25/25 21:39 Dose: 50 mg Documented By: PAPITO Labs 02/26/25 05:54 02/27/25 06:37 Labs: Laboratory Results - last 24 hr 02/25/25 02/26/25 02/26/25 09:26 16:08 20:18 Absolute Neuts (auto) Hold Purple Top Anion Gap Estim Creat Clear Calc Estimated GFR POC Glucose 259 H 335 H 221 H Random Glucose Calcium Phosphorus Magnesium Albumin 02/27/25 02/27/25 02/27/25 06:37 07:23 11:06 Absolute Neuts (auto) 4.9 Hold Purple Top SEE NOTE Anion Gap 11 L Estim Creat Clear Calc 104.7 Estimated GFR > 60 POC Glucose 272 H 238 H Random Glucose 294 H Calcium 9.4 Phosphorus 3.2 Magnesium 1.9 Albumin 3.1 L Assessment and Plan (1) Alzheimer's dementia: Status: Acute (2) Schizoaffective disorder: Status: Acute Plan 69M PMH schizoaffective disorder with psychotic features, major depressive disorder, diabetes, GERD presented to the ED on 02/14/2025 for multiple falls. became hypoxic on 02/16/25 acute toxic metabolic encephalopathy and Acute hypoxic respiratory failure due to aspiration pneumonia completed IV Unasyn . blood cultures neg@5days , weaned O2 as tolerated, aspiration precautions, off oxygen, goal saturation 95% Seen by speech and swallow-purred /nector thick. refuses po intake is low, refuses meds intermitent.currently on tpn. d/w guardian anahy [place]roy, is in agreement with gtube to improved nutrition and allow more consistent meds gen surgery eval Schizoaffective disorder with psychotic features si clozapine levels intial on 02/17: 133 , norcloazpine : 50 he intermittently refuses psych medsand vital/rx continue depakote and valium to iv. psych adjusted clozapine 50 mg tid moniter closely for sedation or respiratory compromise. psych/care team prior to discharge. Diabetes Basal bolus insulin htn hydralazine DVT prophylaxis with Lovenox Full Code reason for continued hospitalization:intermittent weak/dec po intake, awaiting cultures,ivf ,iv antibiotics.tpn ,psych to adjust meds (also if po intake does not improved in 1-2 days with behaviour control,may need to consider alternate means of feeding). Quality Stroke Does the patient have a stroke diagnosis?: No VTE Prior VTE?: No VTE Risk Level:: Medical - moderate - high VTE Device Contraindication: Treatment Not Indicated VTE Drug Contraindication: N/A - Med Ordered
--- NOTE | 2025-02-27 12:22 | MHC.CM.PN ---
EMR REVIEWED, CM RECIEVED COPY OF GUARDIANSHIP FROM SNF WHICH HAS BEEN , PER HOSPITALIST PLAN TO CONT IVF/TPN AND IF PO INTAKE DOES NOT IMPROVE IN A FEW DAYS WILL CONSIDER PEG TUBE, ANTIC PT WILL REMAIN INPT THROUGH W/E, CM WILL CONT TO FOLLOW DC NEEDS.
--- NOTE | 2025-02-27 12:37 | PM.CNGS ---
History of Present Illness Consult details Consult date: 02/27/25 <Reina Duong PA-C - Last Filed: 02/27/25 13:28> Reason for consult: other (PEG tube ) <Reina Duong PA-C - Last Filed: 02/27/25 13:28> Requesting physician: Arturo Arteaga <Reina Duong PA-C - Last Filed: 02/27/25 13:28> Narrative: 69 year old male with PMH of schizoaffective disorder with psychotic features, MDD, diabetes, GERD who presented to the ED on 02/14/2025 for multiple falls. The plan was for admission to Geriatric Psychiatry as patient was actively agitated with signs of psychosis, however he was noted to be more drowsy and hypoxic. CT chest was therefore obtained which showed prominent amount of secretions in the airways greatest in left lower lobe with bronchial wall thickening. He was therefore admitted to the medical service for acute hypoxic respiratory failure due to aspiration pneumonia. He has subsequently completed treatment with Unasyn. He was seen by Speech Therapy who recommended swallow-purred /nector thick diet. He has however been refusing PO intake and oral meds. He has been on TPN. Hospitalist discussed with guardian Ashley Vo who was in agreement with feeding tube for nutrition and meds. General surgery was therefore consulted. History was obtained from EMR. Patient is nonparticipatory in interview but did agree to exam. <Reina Duong PA-C - Last Filed: 02/27/25 13:28> Review of Systems Review of Systems: unable to obtain due to patient refusal <Reina Duong PA-C - Last Filed: 02/27/25 13:28> [facility] Past Medical History Medical History: Medical History Schizoaffective disorder <MARY Baig Last Filed: 02/27/25 13:28> Social History Social History: Social History Household Members: Other Housing: Custodial Do you presently have visiting nurse or other home services: No Comment: 1:1 sitter Patient Tobacco Use Status: Tobacco use Unknown Smoked in Last 30 Days: No Use of substances other than those prescribed or required for medical reasons: No Currently Displaying Signs/Symptoms of Drug Intoxication Withdrawal: No Advance Directives: No Advance Directives Information Provided: No Do you have thoughts of harming others: None Do you have a plan to hurt others: No Plan service: No <Reina Duong PA-C - Last Filed: 02/27/25 13:28> Meds Allergies/Adverse reactions: Allergies Allergy/AdvReac Type Severity Reaction Status Date / Time No Known Allergies Allergy Verified 02/14/25 08:42 <Reina Duong PA-C - Last Filed: 02/27/25 13:28> Active Medications: Current Medications Acetaminophen (Acetaminophen 325 Mg Tablet) 650 mg PO Q6H PRN PRN Reason: Headache/Pain, Scale 1-10 Al Hydroxide/Mg Hydroxide (Magnesium Hydrox/Alum Hydrox 30 Ml Oral.Susp) 30 ml PO Q6H PRN PRN Reason: Heartburn/Nausea Calcium Carbonate (Calcium Carbonate 750 Mg Tab.Chew) 750 mg PO Q4H PRN PRN Reason: Heartburn Clozapine (Clozapine 25 Mg Tablet) 50 mg PO TID [facility] Last Admin: 02/27/25 12:17 Dose: Not Given Dextrose (Dextrose 50 % 25 Gm/50 Ml Syringe) 25 gm IVPUSH Q15M PRN; Protocol PRN Reason: per Hypoglycemia Standing Ord. Diazepam (Diazepam 10 Mg/2 Ml Cartridge) 3 mg IVPUSH TID [facility] Last Admin: 02/27/25 08:53 Dose: 3 mg Docusate Sodium (Docusate Sodium 100 Mg Capsule) 100 mg PO BID [facility] Last Admin: 02/27/25 08:56 Dose: Not Given Enoxaparin Sodium (Enoxaparin Sodium 40 Mg/0.4 Ml Syringe) 40 mg SUBCUT Q24H [facility] Last Admin: 02/27/25 09:01 Dose: 40 mg Fluoxetine HCl (Fluoxetine Hcl 20 Mg Capsule) 40 mg PO BEDTIME [facility] On Hold: 02/22/25 14:23 Last Admin: 02/21/25 22:23 Dose: Not Given Glucagon (Glucagon Hcl 1 Mg Vial) 1 mg IM Q20M PRN PRN Reason: low BG Glucose (Glucose Gel 15 Gm Gel..Gram.) 15 gm PO Q15M PRN; Protocol PRN Reason: per Hypoglycemia Standing Ord. Hydralazine HCl (Hydralazine Hcl 20 Mg/Ml Vial) 5 mg IVPUSH Q6H PRN; Protocol PRN Reason: htn Last Admin: 02/23/25 17:30 Dose: 5 mg Valproic Acid 500 mg/ Dextrose 55 mls @ 52.5 mls/hr IV Q12H [facility] Last Infusion: 02/27/25 12:18 Dose: Infused Nutrition (Parenteral) (Parenteral Nutrition) 1,920 mls @ 80 mls/hr IV .Q24H NATE; Protocol Stop: 02/27/25 20:59 Last Admin: 02/26/25 21:44 Dose: 80 mls/hr Nutrition (Parenteral) (Parenteral Nutrition) 1,920 mls @ 80 mls/hr IV .Q24H [facility]; Protocol Stop: 02/28/25 20:59 Insulin Glargine (Insulin Glargine,Hum.Rec.Anlog 100 Unit/Ml 10 Ml Vial) 24 unit SUBCUT DAILY [facility] On Hold: 02/18/25 20:34 Last Admin: 02/18/25 09:21 Dose: Not Given Insulin Human Lispro (Insulin Lispro 100 Unit/Ml 3 Ml Vial) 0 unit SUBCUT QIDACHS [facility]; Protocol Last Admin: 02/27/25 11:58 Dose: 4 unit Magnesium Hydroxide (Milk Of Magnesia 30 Ml Oral.Susp) 30 ml PO DAILY PRN PRN Reason: Constipation Melatonin (Melatonin 3 Mg Tablet) 6 mg PO BEDTIME PRN PRN Reason: Insomnia Metoprolol Tartrate (Metoprolol Tartrate 12.5 Mg Halftab) 12.5 mg PO BID [facility]; Protocol Last Admin: 02/27/25 12:17 Dose: Not Given Omeprazole (Omeprazole 20 Mg Capsule.Dr) 20 mg PO DAILY@0630 [facility] Last Admin: 02/27/25 05:56 Dose: Not Given Perphenazine (Perphenazine 2 Mg Tablet) 2 mg PO BID [facility] Last Admin: 02/27/25 12:18 Dose: Not Given Perphenazine (Perphenazine 4 Mg Tablet) 4 mg PO BID [facility] Last Admin: 02/27/25 12:18 Dose: Not Given Pharmacy Consult (Consult Rx Parenteral Nutrition Ordering) 1 each MISCELLANE DAILY PRN PRN Reason: Consult order Senna (Sennosides 8.6 Mg Tablet) 8.6 mg PO DAILY [facility] Last Admin: 02/27/25 12:18 Dose: Not Given Sodium Biphosphate/Sodium Phosphate (Sodium Phosphate,[place]-Dibasic 133 Ml Enema) 133 ml [place] DAILY PRN PRN Reason: Constipation Sodium Chloride (0.9 % Sodium Chloride Flush 3 Ml Syringe) 3 ml IVFLUSH QSHIFT NATE Last Admin: 02/27/25 08:51 Dose: 3 ml Trazodone HCl (Trazodone Hcl 50 Mg Tablet) 50 mg PO BEDTIME MRX1 PRN PRN Reason: Insomnia Last Admin: 02/25/25 21:39 Dose: 50 mg <Reina Duong PA-C - Last Filed: 02/27/25 13:28> Home medications: Home Medications ?Medication ?Instructions ?Recorded ?Confirmed ?Last Taken ?Type clozapine 100 mg tablet 300 mg PO TID 02/15/25 02/15/25 02/13/25 History diazepam 2 mg tablet (Valium) 3 mg PO BID 02/15/25 02/15/25 Unknown History divalproex 500 mg tablet,delayed 500 mg PO BID 02/15/25 02/15/25 Unknown History release docusate sodium 100 mg capsule 100 mg PO BID 02/15/25 02/15/25 Unknown History (Colace) dulaglutide 3 mg/0.5 mL 3 mg subcut QWEEK 02/15/25 02/15/25 Unknown History subcutaneous pen injector (Trulicity) fluoxetine 40 mg capsule 40 mg PO QPM 02/15/25 02/15/25 Unknown History glucagon 1 mg/0.2 mL subcutaneous 1 mg subcut Q20M PRN low BG 02/15/25 02/15/25 Unknown History solution insulin glargine 100 unit/mL (3 24 unit subcut QAM 02/15/25 02/15/25 Unknown History mL) subcutaneous pen (Lantus Solostar U-100 Insulin) lorazepam 1 mg tablet 1 mg PO BID 02/15/25 02/15/25 Unknown History metformin 1,000 mg tablet 1,000 mg PO BID 02/15/25 02/15/25 Unknown History metoprolol tartrate 25 mg tablet 12.5 mg PO BID 02/15/25 02/15/25 Unknown History pantoprazole 40 mg tablet,delayed 40 mg PO DAILY 02/15/25 02/15/25 Unknown History release perphenazine 2 mg tablet 2 mg PO BID 02/15/25 02/15/25 Unknown History perphenazine 4 mg tablet 4 mg PO BID 02/15/25 02/15/25 Unknown History sennosides 8.6 mg tablet (senna) 8.6 mg PO DAILY 02/15/25 02/15/25 Unknown History sodium phosphates 19 gram-7 118 ml [place] DAILY PRN Constipation 02/15/25 02/15/25 Unknown History gram/118 mL enema (Fleet Enema) <AMRY Baig Last Filed: 02/27/25 13:28> Physical Exam Vital Signs: Vital Signs: Last Vital Signs Temp 97.8 F 02/27/25 07:40 Pulse 62 02/27/25 07:40 Resp 20 02/27/25 07:40 BP 109/58 L 02/27/25 07:40 Pulse Ox 97 02/27/25 07:40 O2 Del Method Room Air 02/27/25 07:40 O2 Flow Rate 2 02/19/25 07:01 BMI result Body Mass Index 23.3 <MARY Baig Last Filed: 02/27/25 13:28> Const: General: comfortable, no acute distress and alert <MARY Baig Last Filed: 02/27/25 13:28> Resp: Effort & Inspection: normal respiratory effort, able to speak in complete sentences and not labored <MARY Baig Last Filed: 02/27/25 13:28> GI: Inspection: Yes normal to inspection, No distended and No scar <MARY Baig Last Filed: 02/27/25 13:28> Palpation (GI): Soft to palpation, nontender and no guarding <MARY Baig Last Filed: 02/27/25 13:28> Percussion: Yes normal to percussion <MARY Baig Last Filed: 02/27/25 13:28> Skin: Other: warm and dry <MARY Baig Last Filed: 02/27/25 13:28> Results Labs Result diagrams: 03/01/25 07:36 03/02/25 06:49 <Reina Duong PA-C - Last Filed: 02/27/25 13:28> Labs: Abnormal lab results 02/25/25 02/26/25 02/26/25 Range/Units 09: 16:08 20:18 Carbon Dioxide (22-29) mmol/L Anion Gap (12-20) POC Glucose 259 H 335 H 221 H (60-115) mg/dL Random Glucose (60-115) mg/dL Albumin (3.5-5.0) g/dL 02/27/25 02/27/25 02/27/25 Range/Units 06:37 07:23 11:06 Carbon Dioxide 30 H (22-29) mmol/L Anion Gap 11 L (12-20) POC Glucose 272 H 238 H (60-115) mg/dL Random Glucose 294 H (60-115) mg/dL Albumin 3.1 L (3.5-5.0) g/dL BMP 02/27/25 06:37 Sodium 139 Potassium 4.4 Chloride 102 Carbon Dioxide 30 H BUN 16 Creatinine 0.64 Calcium 9.4 Liver Function 02/27/25 Range/Units 06:37 Albumin 3.1 L (3.5-5.0) g/dL Urine 02/14/25 02/16/25 Range/Units 16:22 15:24 Urine Color Yellow Yellow Urine Appearance Clear Clear Urine pH 7.5 5.5 (5.0-9.0) Ur Specific [place] 1.020 1.020 (1.005-1.025) Urine Protein 30 (1+) H Negative (Neg-Trace) mg/dL Urine Glucose (UA) 250 H Negative (Negative) mg/dL All other labs normal. <MARY Baig Last Filed: 02/27/25 13:28> Assessment and Plan (1) Schizoaffective disorder: Status: Acute <MARY Baig Last Filed: 02/27/25 13:28> (2) Psychosis: Status: Acute <MARY Baig Last Filed: 02/27/25 13:28> 69-year-old male with schizophrenia, psychotic features, diabetes, admitted for respiratory failure secondary to aspiration pneumonia Able to tolerate pureed diet/thick liquids However, refusing to have oral intake Abdomen is soft and benign No obvious surgical scars on the abdomen Guardian wants to proceed with PEG tube placement for nutrition The guardian understands the technique of the planned procedure as well as the risks, benefits, alternatives We will proceed with PEG tube placement Seen and examined independently Patient not competent provide consent <Randall Arana MD - Last Filed: 03/02/25 07:54> 69 year old male with PMH of schizoaffective disorder with psychotic features, MDD, diabetes, GERD admitted to the medical service for acute hypoxic respiratory failure due to aspiration pneumonia which has resolved, now refusing oral intake and meds and on parental nutrition. General surgery was consulted for PEG tube placement for nutrition and med administration. He is refusing to participate in history and unclear if he has surgical history but he has no abdominal scars and his abdomen is soft, nontender. Appears to be amenable for PEG tube placement. Will schedule tenatively for Sunday. To be discussed with guardian. NPO after midnight 03/02. <Reina Duong PA-C - Last Filed: 02/27/25 13:28> Procedures Date of Service Date of Service: 02/27/25 <Reina Duong PA-C - Last Filed: 02/27/25 13:28> 03/02/25 <Randall Arana MD - Last Filed: 03/02/25 07:54>
--- NOTE | 2025-02-27 13:40 | MHC.SLORD ---
Speech Language Pathology Order Status: Attempted to see patient at lunch, patient sleeping soundly, likely secondary to medication. Did not attempt or wake. Will continue to follow.
[2025-02-27 15:49] VITALS: BP 126/67; PULSE 77; RESP 20; TEMP 36; O2SAT 98
[2025-02-27 16:14] LABS: Glucose, Whole Blood 258 mg/dL (60-115)
[2025-02-27 20:00] VITALS: BP 132/61; PULSE 77; RESP 16; TEMP 36.2; O2SAT 99
[2025-02-27 21:39] LABS: Glucose, Whole Blood 268 mg/dL (60-115)
[2025-02-27] MEDS: Valproic Acid (as Sodium Salt) 500 MG in Dextrose 5 % 50 ML 52.5 MG IV (21:53)
[2025-02-27] MEDS: Metoprolol Tartrate 12.5 MG HALFTAB PO (21:55)
[2025-02-27] MEDS: Parenteral Nutrition 1,920 ML 80 ML IV (23:03)
[2025-02-28 04:00] VITALS: BP 144/67; PULSE 74; RESP 16; TEMP 36.7; O2SAT 96
[2025-02-28 07:36] VITALS: BP 124/73; PULSE 64; RESP 14; TEMP 36.1; O2SAT 96
[2025-02-28 07:48] LABS: Glucose, Whole Blood 353 mg/dL (60-115)
[2025-02-28 07:50] LABS: Neut%MD 70.8 %; WBCANC 9.3 X10*3/uL
[2025-02-28 08:08] LABS: Albumin Level 3.1 g/dL (3.5-5.0); Anion Gap 12 (12-20); Blood Urea Nitrogen 16 mg/dL (9-16); Calcium 9.4 mg/dL (8.4-10.2); Carbon Dioxide 31 mmol/L (22-29); Chloride 100 mmol/L (96-108); Creatinine Clr Calc Pharmacy 104.7; Estimated Glomerular Filt Rate > 60; Magnesium 1.9 mg/dL (1.6-2.6); Potassium 4.7 mmol/L (3.3-5.1); Sodium 138 mmol/L (135-145)
[2025-02-28] MEDS: 0.9 % Sodium Chloride Flush 3 ML SYRINGE IVFLUSH ×3 (08:46→20:53)
--- NOTE | 2025-02-28 09:21 | P.PNIM_ITS ---
Subjective Subjective Date of Service: 02/28/25 Interval History: non participatory Physical Exam 2 Vital Signs: Vital Signs: Last Vital Signs Temp 97.0 F 02/28/25 07:36 Pulse 64 02/28/25 07:36 Resp 14 02/28/25 07:36 BP 124/73 02/28/25 07:36 Pulse Ox 96 02/28/25 07:36 O2 Del Method Room Air 02/28/25 07:36 O2 Flow Rate 2 02/19/25 07:01 BMI result Body Mass Index 23.3 Const: General: comfortable, no acute distress and alert Resp: Effort & Inspection: normal respiratory effort, able to speak in complete sentences and not labored GI: Inspection: Yes normal to inspection, No distended and No scar P alpation (GI): Soft to palpation, nontender and no guarding Percussion: Yes normal to percussion Skin: Other: warm and dry Objective Data Active Medications Acetaminophen (Acetaminophen 325 Mg Tablet) 650 mg PO Q6H PRN PRN Reason: Headache/Pain, Scale 1-10 Al Hydroxide/Mg Hydroxide (Magnesium Hydrox/Alum Hydrox 30 Ml Oral.Susp) 30 ml PO Q6H PRN PRN Reason: Heartburn/Nausea Calcium Carbonate (Calcium Carbonate 750 Mg Tab.Chew) 750 mg PO Q4H PRN PRN Reason: Heartburn Clozapine (Clozapine 25 Mg Tablet) 50 mg PO TID [facility] Last Admin: 02/28/25 08:48 Dose: Not Given Documented By: DAVID Non-Admin Reason: Patient Condition Contraindication Dextrose (Dextrose 50 % 25 Gm/50 Ml Syringe) 25 gm IVPUSH Q15M PRN; Protocol PRN Reason: per Hypoglycemia Standing Ord. Diazepam (Diazepam 10 Mg/2 Ml Cartridge) 3 mg IVPUSH TID [facility] Last Admin: 02/28/25 08:48 Dose: Not Given Documented By: DAVID Non-Admin Reason: Patient Condition Contraindication Docusate Sodium (Docusate Sodium 100 Mg Capsule) 100 mg PO BID [facility] Last Admin: 02/28/25 08:48 Dose: Not Given Documented By: DAVID Non-Admin Reason: Patient Condition Contraindication Enoxaparin Sodium (Enoxaparin Sodium 40 Mg/0.4 Ml Syringe) 40 mg SUBCUT Q24H [facility] Last Admin: 02/27/25 09:01 Dose: 40 mg Documented By: JAYSHREE Fluoxetine HCl (Fluoxetine Hcl 20 Mg Capsule) 40 mg PO BEDTIME [facility] On Hold: 02/22/25 14:23 Last Admin: 02/21/25 22:23 Dose: Not Given Documented By: PAPITO Non-Admin Reason: pt refused Glucagon (Glucagon Hcl 1 Mg Vial) 1 mg IM Q20M PRN PRN Reason: low BG Glucose (Glucose Gel 15 Gm Gel..Gram.) 15 gm PO Q15M PRN; Protocol PRN Reason: per Hypoglycemia Standing Ord. Hydralazine HCl (Hydralazine Hcl 20 Mg/Ml Vial) 5 mg IVPUSH Q6H PRN; Protocol PRN Reason: htn Last Admin: 02/23/25 17:30 Dose: 5 mg Documented By: JAYME Valproic Acid 500 mg/ Dextrose 55 mls @ 52.5 mls/hr IV Q12H [facility] Last Infusion: 02/27/25 23:12 Dose: Infused Documented By: JOSE EDUARDO Nutrition (Parenteral) (Parenteral Nutrition) 1,920 mls @ 80 mls/hr IV .Q24H [facility]; Protocol Stop: 02/28/25 20:59 Last Admin: 02/27/25 23:03 Dose: 80 mls/hr Documented By: JOSE EDUARDO Nutrition (Parenteral) (Parenteral Nutrition) 1,920 mls @ 80 mls/hr IV .Q24H [facility]; Protocol Stop: 03/01/25 20:59 Insulin Glargine (Insulin Glargine,Hum.Rec.Anlog 100 Unit/Ml 10 Ml Vial) 24 unit SUBCUT DAILY [facility] On Hold: 02/18/25 20:34 Last Admin: 02/18/25 09:21 Dose: Not Given Documented By: SRINIVASA Non-Admin Reason: not eating Insulin Human Lispro (Insulin Lispro 100 Unit/Ml 3 Ml Vial) 0 unit SUBCUT QIDACHS [facility]; Protocol Last Admin: 02/28/25 08:45 Dose: 10 unit Documented By: DAVID Magnesium Hydroxide (Milk Of Magnesia 30 Ml Oral.Susp) 30 ml PO DAILY PRN PRN Reason: Constipation Melatonin (Melatonin 3 Mg Tablet) 6 mg PO BEDTIME PRN PRN Reason: Insomnia Metoprolol Tartrate (Metoprolol Tartrate 12.5 Mg Halftab) 12.5 mg PO BID [facility]; Protocol Last Admin: 02/28/25 08:48 Dose: Not Given Documented By: DAVID Non-Admin Reason: Patient Condition Contraindication Omeprazole (Omeprazole 20 Mg Capsule.Dr) 20 mg PO DAILY@0630 [facility] Last Admin: 02/28/25 05:41 Dose: Not Given Documented By: JOSE EDUARDO Non-Admin Reason: cannot be crushed Perphenazine (Perphenazine 2 Mg Tablet) 2 mg PO BID [facility] Last Admin: 02/28/25 08:48 Dose: Not Given Documented By: DAVID Non-Admin Reason: Patient Condition Contraindication Perphenazine (Perphenazine 4 Mg Tablet) 4 mg PO BID [facility] Last Admin: 02/28/25 08:48 Dose: Not Given Documented By: DAVID Non-Admin Reason: Patient Condition Contraindication Pharmacy Consult (Consult Rx Parenteral Nutrition Ordering) 1 each MISCELLANE DAILY PRN PRN Reason: Consult order Senna (Sennosides 8.6 Mg Tablet) 8.6 mg PO DAILY [facility] Last Admin: 02/28/25 08:49 Dose: Not Given Documented By: DAVID Non-Admin Reason: Patient Condition Contraindication Sodium Biphosphate/Sodium Phosphate (Sodium Phosphate,[place]-Dibasic 133 Ml Enema) 133 ml [place] DAILY PRN PRN Reason: Constipation Sodium Chloride (0.9 % Sodium Chloride Flush 3 Ml Syringe) 3 ml IVFLUSH QSHIFT [facility] Last Admin: 02/28/25 08:46 Dose: 3 ml Documented By: DAVID Trazodone HCl (Trazodone Hcl 50 Mg Tablet) 50 mg PO BEDTIME MRX1 PRN PRN Reason: Insomnia Last Admin: 02/25/25 21:39 Dose: 50 mg Documented By: PAPITO Labs 02/26/25 05:54 02/28/25 07:25 Labs: Laboratory Results - last 24 hr 02/27/25 02/27/25 02/27/25 11:06 16:10 21:25 Absolute Neuts (auto) Anion Gap Estim Creat Clear Calc Estimated GFR POC Glucose 238 H 258 H 268 H Random Glucose Calcium Phosphorus Magnesium Albumin 02/28/25 02/28/25 07:25 07:42 Absolute Neuts (auto) 6.6 Anion Gap 12 Estim Creat Clear Calc 104.7 Estimated GFR > 60 POC Glucose 353 H* Random Glucose 349 H Calcium 9.4 Phosphorus 3.3 Magnesium 1.9 Albumin 3.1 L Assessment and Plan (1) Alzheimer's dementia: Status: Acute (2) Schizoaffective disorder: Status: Acute Plan 69M PMH schizoaffective disorder with psychotic features, major depressive disorder, diabetes, GERD presented to the ED on 02/14/2025 for multiple falls. became hypoxic on 02/16/25 acute toxic metabolic encephalopathy and Acute hypoxic respiratory failure due to aspiration pneumonia completed IV Unasyn . blood cultures neg@5days , weaned O2 as tolerated, aspiration precautions, off oxygen, goal saturation 95% Seen by speech and swallow-purred /nector thick. refuses po intake is low, refuses meds intermitent.currently on tpn. d/w guardian anahy monroy, is in agreement with gtube to improved nutrition and allow more consistent meds gen surgery eval Schizoaffective disorder with psychotic features si clozapine levels intial on 02/17: 133 , norcloazpine : 50 he intermittently refuses psych medsand vital/rx continue depakote and valium to iv. psych adjusted clozapine 50 mg tid moniter closely for sedation or respiratory compromise. psych/care team prior to discharge. Diabetes Basal bolus insulin htn hydralazine DVT prophylaxis with Lovenox Full Code reason for continued hospitalization:intermittent weak/dec po intake, awaiting cultures,ivf ,iv antibiotics.tpn ,psych to adjust meds (also if po intake does not improved in 1-2 days with behaviour control,may need to consider alternate means of feeding). Quality Stroke Does the patient have a stroke diagnosis?: No VTE Prior VTE?: No VTE Risk Level:: Medical - moderate - high VTE Device Contraindication: Treatment Not Indicated VTE Drug Contraindication: N/A - Med Ordered
[2025-02-28] MEDS: Valproic Acid (as Sodium Salt) 500 MG in Dextrose 5 % 50 ML 52.5 MG IV ×2 (09:28→22:23)
[2025-02-28 11:26] LABS: Glucose, Whole Blood 311 mg/dL (60-115)
[2025-02-28 12:04] VITALS: BP 138/67; PULSE 71; RESP 16; TEMP 36.7; O2SAT 96
[2025-02-28 15:28] VITALS: BP 135/63; PULSE 89; RESP 18; TEMP 36.8; O2SAT 96
[2025-02-28 16:14] LABS: Glucose, Whole Blood 161 mg/dL (60-115)
[2025-02-28 19:37] VITALS: BP 119/57; PULSE 83; RESP 17; TEMP 36.6; O2SAT 95
[2025-02-28] MEDS: diazePAM 10 MG/2 ML CARTRIDGE 3 MG IVPUSH (20:54)
[2025-02-28 21:06] LABS: Glucose, Whole Blood 265 mg/dL (60-115)
[2025-02-28] MEDS: Metoprolol Tartrate 12.5 MG HALFTAB PO (22:22)
[2025-02-28] MEDS: Parenteral Nutrition 1,920 ML 80 ML IV (23:29)
[2025-03-01 02:45] VITALS: BP 120/65; PULSE 78; RESP 15; TEMP 36.4; O2SAT 96
[2025-03-01 08:00] VITALS: BP 115/63; PULSE 78; RESP 16; TEMP 36.2; O2SAT 93
[2025-03-01 08:05] LABS: Hematocrit 35.3 % (42.0-52.0); Hemoglobin 12.7 g/dl (14.0-18.0); Mean Corpuscular HGB Conc 36.0 g/dl (31.0-36.0); Mean Corpuscular Hemoglobin 31.4 pg (27.0-33.0); Mean Corpuscular Volume 87.2 fL (80.0-98.0); NRBC Abs Auto 0.000 X10*3/uL (0.0-0.012); NRBC Pct Auto 0.0 /100WBC (0.0-0.2); Platelet Count 189 X10*3/uL (160-400); Red Blood Count 4.05 X10*6/uL (4.60-5.80); White Blood Count 7.9 X10*3/uL (4.8-10.8)
[2025-03-01 08:15] LABS: Albumin Level 2.9 g/dL (3.5-5.0); Anion Gap 12 (12-20); Blood Urea Nitrogen 17 mg/dL (9-16); Calcium 9.1 mg/dL (8.4-10.2); Carbon Dioxide 25 mmol/L (22-29); Chloride 104 mmol/L (96-108); Creatinine Clr Calc Pharmacy 109.8; Estimated Glomerular Filt Rate > 60; Magnesium 1.9 mg/dL (1.6-2.6); Potassium 4.6 mmol/L (3.3-5.1); Sodium 136 mmol/L (135-145)
[2025-03-01 08:44] LABS: Glucose, Whole Blood 306 mg/dL (60-115)
[2025-03-01] MEDS: Valproic Acid (as Sodium Salt) 500 MG in Dextrose 5 % 50 ML 52.5 MG IV ×2 (09:13→19:46)
[2025-03-01] MEDS: 0.9 % Sodium Chloride Flush 3 ML SYRINGE IVFLUSH ×4 (09:14→21:23)
[2025-03-01] MEDS: diazePAM 10 MG/2 ML CARTRIDGE 3 MG IVPUSH (09:27)
--- NOTE | 2025-03-01 09:43 | HO.PM.IMPN ---
Subjective Subjective Date of Service: 03/01/25 Interval History: non participatory Physical Exam Vital Signs: Vital Signs: Last Vital Signs Temp 97.1 F 03/01/25 08:00 Pulse 78 03/01/25 08:00 Resp 16 03/01/25 08:00 BP 115/63 03/01/25 08:00 Pulse Ox 93 03/01/25 08:00 O2 Del Method Room Air 03/01/25 08:00 O2 Flow Rate 2 02/19/25 07:01 BMI result Body Mass Index 23.3 Const: General: comfortable, no acute distress and alert Resp: Effort & Inspection: normal respiratory effort, able to speak in complete sentences and not labored GI: Inspection: Yes normal to inspection, No distended and No scar Palpation (GI): Soft to palpation, nontender and no guarding Percussion: Yes normal to percussion Skin: Other: warm and dry Objective Data Active Medications Acetaminophen (Acetaminophen 325 Mg Tablet) 650 mg PO Q6H PRN PRN Reason: Headache/Pain, Scale 1-10 Al Hydroxide/Mg Hydroxide (Magnesium Hydrox/Alum Hydrox 30 Ml Oral.Susp) 30 ml PO Q6H PRN PRN Reason: Heartburn/Nausea Calcium Carbonate (Calcium Carbonate 750 Mg Tab.Chew) 750 mg PO Q4H PRN PRN Reason: Heartburn Clozapine (Clozapine 25 Mg Tablet) 50 mg PO TID [facility] Last Admin: 03/01/25 09:27 Dose: Not Given Documented By: PHAN Non-Admin Reason: Patient Refused Dextrose (Dextrose 50 % 25 Gm/50 Ml Syringe) 25 gm IVPUSH Q15M PRN; Protocol PRN Reason: per Hypoglycemia Standing Ord. Diazepam (Diazepam 10 Mg/2 Ml Cartridge) 3 mg IVPUSH TID [facility] Last Admin: 03/01/25 09:27 Dose: 3 mg Documented By: PHAN Docusate Sodium (Docusate Sodium 100 Mg Capsule) 100 mg PO BID [facility] Last Admin: 03/01/25 09:15 Dose: Not Given Documented By: PHAN Non-Admin Reason: unable crush Enoxaparin Sodium (Enoxaparin Sodium 40 Mg/0.4 Ml Syringe) 40 mg SUBCUT Q24H [facility] Last Admin: 03/01/25 09:15 Dose: 40 mg Documented By: PHAN Fluoxetine HCl (Fluoxetine Hcl 20 Mg Capsule) 40 mg PO BEDTIME NATE On Hold: 02/22/25 14:23 Last Admin: 02/21/25 22:23 Dose: Not Given Documented By: PAPITO Non-Admin Reason: pt refused Glucagon (Glucagon Hcl 1 Mg Vial) 1 mg IM Q20M PRN PRN Reason: low BG Glucose (Glucose Gel 15 Gm Gel..Gram.) 15 gm PO Q15M PRN; Protocol PRN Reason: per Hypoglycemia Standing Ord. Hydralazine HCl (Hydralazine Hcl 20 Mg/Ml Vial) 5 mg IVPUSH Q6H PRN; Protocol PRN Reason: htn Last Admin: 02/23/25 17:30 Dose: 5 mg Documented By: JAYME Nutrition (Parenteral) (Parenteral Nutrition) 1,920 mls @ 80 mls/hr IV .Q24H NATE; Protocol Stop: 03/01/25 20:59 Last Admin: 02/28/25 23:29 Dose: 80 mls/hr Documented By: JOSE EDUARDO Valproic Acid 500 mg/ Dextrose 55 mls @ 52.5 mls/hr IV Q12H NATE Last Admin: 03/01/25 09:13 Dose: 52.5 mls/hr Documented By: PHAN Insulin Glargine (Insulin Glargine,Hum.Rec.Anlog 100 Unit/Ml 10 Ml Vial) 24 unit SUBCUT DAILY NATE On Hold: 02/18/25 20:34 Last Admin: 02/18/25 09:21 Dose: Not Given Documented By: SRINIVASA Non-Admin Reason: not eating Insulin Human Lispro (Insulin Lispro 100 Unit/Ml 3 Ml Vial) 0 unit SUBCUT QIDACHS NATE; Protocol Last Admin: 03/01/25 09:13 Dose: 8 unit Documented By: PHAN Magnesium Hydroxide (Milk Of Magnesia 30 Ml Oral.Susp) 30 ml PO DAILY PRN PRN Reason: Constipation Melatonin (Melatonin 3 Mg Tablet) 6 mg PO BEDTIME PRN PRN Reason: Insomnia Metoprolol Tartrate (Metoprolol Tartrate 12.5 Mg Halftab) 12.5 mg PO BID NATE; Protocol Last Admin: 03/01/25 09:30 Dose: Not Given Documented By: PHAN Non-Admin Reason: Patient Refused Omeprazole (Omeprazole 20 Mg Capsule.Dr) 20 mg PO DAILY@0630 [facility] Last Admin: 03/01/25 04:38 Dose: Not Given Documented By: JOSE EDUARDO Non-Admin Reason: cannot be crushed Perphenazine (Perphenazine 2 Mg Tablet) 2 mg PO BID [facility] Last Admin: 03/01/25 09:42 Dose: Not Given Documented By: PHAN Non-Admin Reason: Patient Refused Perphenazine (Perphenazine 4 Mg Tablet) 4 mg PO BID [facility] Last Admin: 03/01/25 09:43 Dose: Not Given Documented By: PHAN Non-Admin Reason: Patient Refused Pharmacy Consult (Consult Rx Parenteral Nutrition Ordering) 1 each MISCELLANE DAILY PRN PRN Reason: Consult order Senna (Sennosides 8.6 Mg Tablet) 8.6 mg PO DAILY [facility] Last Admin: 03/01/25 09:12 Dose: 8.6 mg Documented By: PHAN Sodium Biphosphate/Sodium Phosphate (Sodium Phosphate,Rooks-Dibasic 133 Ml Enema) 133 ml SD DAILY PRN PRN Reason: Constipation Sodium Chloride (0.9 % Sodium Chloride Flush 3 Ml Syringe) 3 ml IVFLUSH QSHIFT [facility] Last Admin: 03/01/25 09:14 Dose: 3 ml Documented By: PHAN Trazodone HCl (Trazodone Hcl 50 Mg Tablet) 50 mg PO BEDTIME MRX1 PRN PRN Reason: Insomnia Last Admin: 02/25/25 21:39 Dose: 50 mg Documented By: PAPITO Labs 03/01/25 07:36 03/01/25 07:36 Labs: Laboratory Results - last 24 hr 02/28/25 02/28/25 02/28/25 11:22 16:09 20:58 MCV MCH MCHC RDW Plt Count MPV Absolute Nucleated RBC Nucleated RBC % (auto) Anion Gap Estim Creat Clear Calc Estimated GFR POC Glucose 311 H 161 H 265 H Random Glucose Calcium Phosphorus Magnesium Albumin 03/01/25 03/01/25 07:36 08:31 MCV 87.2 MCH 31.4 MCHC 36.0 RDW 13.7 Plt Count 189 MPV 11.4 Absolute Nucleated RBC 0.000 Nucleated RBC % (auto) 0.0 Anion Gap 12 Estim Creat Clear Calc 109.8 Estimated GFR > 60 POC Glucose 306 H Random Glucose 344 H Calcium 9.1 Phosphorus 3.4 Magnesium 1.9 Albumin 2.9 L Assessment and Plan (1) Alzheimer's dementia: Status: Acute (2) Schizoaffective disorder: Status: Acute Plan 69M PMH schizoaffective disorder with psychotic features, major depressive disorder, diabetes, GERD presented to the ED on 02/14/2025 for multiple falls. became hypoxic on 02/16/25 acute toxic metabolic encephalopathy and Acute hypoxic respiratory failure due to aspiration pneumonia completed IV Unasyn . blood cultures neg@5days , weaned O2 as tolerated, aspiration precautions, off oxygen, goal saturation 95% Seen by speech and swallow-purred /nector thick. refuses po intake is low, refuses meds intermitent.currently on tpn. d/w guardian anahy monroy, is in agreement with gtube to improved nutrition and allow more consistent meds gen surgery eval Schizoaffective disorder with psychotic features si clozapine levels intial on 02/17: 133 , norcloazpine : 50 he intermittently refuses psych medsand vital/rx continue depakote and valium to iv. psych adjusted clozapine 50 mg tid moniter closely for sedation or respiratory compromise. psych/care team prior to discharge. Diabetes Basal bolus insulin htn hydralazine DVT prophylaxis with Lovenox Full Code reason for continued hospitalization:intermittent weak/dec po intake, awaiting cultures,ivf ,iv antibiotics.tpn ,psych to adjust meds (also if po intake does not improved in 1-2 days with behaviour control,may need to consider alternate means of feeding). Quality Stroke Does the patient have a stroke diagnosis?: No VTE Prior VTE?: No VTE Risk Level:: Medical - moderate - high VTE Device Contraindication: Treatment Not Indicated VTE Drug Contraindication: N/A - Med Ordered
[2025-03-01 12:40] LABS: Glucose, Whole Blood 314 mg/dL (60-115)
--- NOTE | 2025-03-01 15:46 | PC.NURSE ---
pt refused to take morning medications this morning. Rn educated patient on importance and when offered medication in pudding patient stated, why don't you take that and shoved it up your ass. Po med administration deferred at this time.
[2025-03-01 16:00] VITALS: BP 136/63; PULSE 85; RESP 16; TEMP 36; O2SAT 99
[2025-03-01 16:23] LABS: Glucose, Whole Blood 304 mg/dL (60-115)
[2025-03-01 19:38] VITALS: BP 131/58; PULSE 91; RESP 18; TEMP 36.6; O2SAT 96
[2025-03-01 21:01] LABS: Glucose, Whole Blood 242 mg/dL (60-115)
[2025-03-01] MEDS: Parenteral Nutrition 1,920 ML 80 ML IV (21:15)
[2025-03-01] MEDS: Metoprolol Tartrate 12.5 MG HALFTAB PO (21:22)
[2025-03-02] VITALS (13 sets, daily range): BP systolic 100–140; BP diastolic 52–78; PULSE 57–77; RESP 12–19; TEMP 35.9–36.9; O2SAT 95–99
[2025-03-02 07:42] LABS: Glucose, Whole Blood 307 mg/dL (60-115)
[2025-03-02 07:50] LABS: Albumin Level 3.1 g/dL (3.5-5.0); Anion Gap 12 (12-20); Blood Urea Nitrogen 18 mg/dL (9-16); Calcium 9.4 mg/dL (8.4-10.2); Carbon Dioxide 27 mmol/L (22-29); Chloride 104 mmol/L (96-108); Creatinine Clr Calc Pharmacy 111.6; Estimated Glomerular Filt Rate > 60; Magnesium 1.9 mg/dL (1.6-2.6); Potassium 5.0 mmol/L (3.3-5.1); Sodium 138 mmol/L (135-145)
--- NOTE | 2025-03-02 09:40 | P.PNIM_ITS ---
Subjective Subjective Date of Service: 03/02/25 Interval History: non participatory Physical Exam 2 Vital Signs: Vital Signs: Last Vital Signs Temp 98.4 F 03/02/25 08:00 Pulse 77 03/02/25 08:00 Resp 19 03/02/25 08:00 BP 125/60 03/02/25 08:00 Pulse Ox 95 03/02/25 08:00 O2 Del Method Room Air 03/02/25 08:00 O2 Flow Rate 2 02/19/25 07:01 BMI result Body Mass Index 23.3 Const: General: comfortable, no acute distress and alert Resp: Effort & Inspection: normal respiratory effort, able to speak in complete sentences and not labored GI: Inspection: Yes normal to inspection, No distended and No scar P alpation (GI): Soft to palpation, nontender and no guarding Percussion: Yes normal to percussion Skin: Other: warm and dry Objective Data Active Medications Acetaminophen (Acetaminophen 325 Mg Tablet) 650 mg PO Q6H PRN PRN Reason: Headache/Pain, Scale 1-10 Al Hydroxide/Mg Hydroxide (Magnesium Hydrox/Alum Hydrox 30 Ml Oral.Susp) 30 ml PO Q6H PRN PRN Reason: Heartburn/Nausea Calcium Carbonate (Calcium Carbonate 750 Mg Tab.Chew) 750 mg PO Q4H PRN PRN Reason: Heartburn Clozapine (Clozapine 25 Mg Tablet) 50 mg PO TID [facility] Last Admin: 03/02/25 08:48 Dose: Not Given Documented By: OSCAR Non-Admin Reason: unable to administer po safely at this time Dextrose (Dextrose 50 % 25 Gm/50 Ml Syringe) 25 gm IVPUSH Q15M PRN; Protocol PRN Reason: per Hypoglycemia Standing Ord. Diazepam (Diazepam 10 Mg/2 Ml Cartridge) 3 mg IVPUSH TID [facility] Last Admin: 03/02/25 08:49 Dose: Not Given Documented By: OSCAR Non-Admin Reason: unable to administer po safely at this time Docusate Sodium (Docusate Sodium 100 Mg Capsule) 100 mg PO BID [facility] Last Admin: 03/02/25 08:49 Dose: Not Given Documented By: OSCAR Non-Admin Reason: unable to administer po safely at this time Enoxaparin Sodium (Enoxaparin Sodium 40 Mg/0.4 Ml Syringe) 40 mg SUBCUT Q24H [facility] Last Admin: 03/01/25 09:15 Dose: 40 mg Documented By: PHAN Fluoxetine HCl (Fluoxetine Hcl 20 Mg Capsule) 40 mg PO BEDTIME NATE On Hold: 02/22/25 14:23 Last Admin: 02/21/25 22:23 Dose: Not Given Documented By: PAPITO Non-Admin Reason: pt refused Glucagon (Glucagon Hcl 1 Mg Vial) 1 mg IM Q20M PRN PRN Reason: low BG Glucose (Glucose Gel 15 Gm Gel..Gram.) 15 gm PO Q15M PRN; Protocol PRN Reason: per Hypoglycemia Standing Ord. Hydralazine HCl (Hydralazine Hcl 20 Mg/Ml Vial) 5 mg IVPUSH Q6H PRN; Protocol PRN Reason: htn Last Admin: 02/23/25 17:30 Dose: 5 mg Documented By: JAYME Valproic Acid 500 mg/ Dextrose 55 mls @ 52.5 mls/hr IV Q12H NATE Last Infusion: 03/01/25 22:08 Dose: Infused Documented By: PAPITO Nutrition (Parenteral) (Parenteral Nutrition) 1,920 mls @ 80 mls/hr IV .Q24H NATE; Protocol Stop: 03/02/25 20:59 Last Admin: 03/01/25 21:15 Dose: 80 mls/hr Documented By: PAPITO Insulin Glargine (Insulin Glargine,Hum.Rec.Anlog 100 Unit/Ml 10 Ml Vial) 24 unit SUBCUT DAILY NATE On Hold: 02/18/25 20:34 Last Admin: 02/18/25 09:21 Dose: Not Given Documented By: SRINIVASA Non-Admin Reason: not eating Insulin Human Lispro (Insulin Lispro 100 Unit/Ml 3 Ml Vial) 0 unit SUBCUT QIDACHS [facility]; Protocol Last Admin: 03/02/25 07:56 Dose: 8 unit Documented By: OSCAR Magnesium Hydroxide (Milk Of Magnesia 30 Ml Oral.Susp) 30 ml PO DAILY PRN PRN Reason: Constipation Melatonin (Melatonin 3 Mg Tablet) 6 mg PO BEDTIME PRN PRN Reason: Insomnia Metoprolol Tartrate (Metoprolol Tartrate 12.5 Mg Halftab) 12.5 mg PO BID NATE; Protocol Last Admin: 03/02/25 08:49 Dose: Not Given Documented By: OSCAR Non-Admin Reason: unable to administer po safely at this time Omeprazole (Omeprazole 20 Mg Capsule.Dr) 20 mg PO DAILY@0630 [facility] Last Admin: 03/02/25 06:27 Dose: 20 mg Documented By: PAPITO Perphenazine (Perphenazine 2 Mg Tablet) 2 mg PO BID [facility] Last Admin: 03/02/25 08:49 Dose: Not Given Documented By: OSCAR Non-Admin Reason: unable to administer po safely at this time Perphenazine (Perphenazine 4 Mg Tablet) 4 mg PO BID [facility] Last Admin: 03/02/25 08:49 Dose: Not Given Documented By: OSCAR Non-Admin Reason: unable to administer po safely at this time Pharmacy Consult (Consult Rx Parenteral Nutrition Ordering) 1 each MISCELLANE DAILY PRN PRN Reason: Consult order Senna (Sennosides 8.6 Mg Tablet) 8.6 mg PO DAILY [facility] Last Admin: 03/02/25 08:49 Dose: Not Given Documented By: OSCAR Non-Admin Reason: unable to administer po safely at this time Sodium Biphosphate/Sodium Phosphate (Sodium Phosphate,Quay-Dibasic 133 Ml Enema) 133 ml AR DAILY PRN PRN Reason: Constipation Sodium Chloride (0.9 % Sodium Chloride Flush 3 Ml Syringe) 3 ml IVFLUSH QSHIFT [facility] Last Admin: 03/01/25 21:23 Dose: 3 ml Documented By: PAPITO Trazodone HCl (Trazodone Hcl 50 Mg Tablet) 50 mg PO BEDTIME MRX1 PRN PRN Reason: Insomnia Last Admin: 02/25/25 21:39 Dose: 50 mg Documented By: PAPITO Labs 03/01/25 07:36 03/02/25 06:49 Labs: Laboratory Results - last 24 hr 03/01/25 03/01/25 03/01/25 12:17 16:14 20:53 Hold Purple Top Anion Gap Estim Creat Clear Calc Estimated GFR POC Glucose 314 H 304 H 242 H Random Glucose Calcium Phosphorus Magnesium Albumin 03/02/25 03/02/25 06:49 07:29 Hold Purple Top SEE NOTE Anion Gap 12 Estim Creat Clear Calc 111.6 Estimated GFR > 60 POC Glucose 307 H Random Glucose 329 H Calcium 9.4 Phosphorus 3.5 Magnesium 1.9 Albumin 3.1 L Assessment and Plan (1) Alzheimer's dementia: Status: Acute (2) Schizoaffective disorder: Status: Acute Plan 69M PMH schizoaffective disorder with psychotic features, major depressive disorder, diabetes, GERD presented to the ED on 02/14/2025 for multiple falls. became hypoxic on 02/16/25 acute toxic metabolic encephalopathy and Acute hypoxic respiratory failure due to aspiration pneumonia completed IV Unasyn . blood cultures neg@5days , weaned O2 as tolerated, aspiration precautions, off oxygen, goal saturation 95% Seen by speech and swallow-purred /nector thick. refuses po intake is low, refuses meds intermitent.currently on tpn. d/w guardian anahy monroy, is in agreement with gtube to improved nutrition and allow more consistent meds gen surgery eval Schizoaffective disorder with psychotic features si clozapine levels intial on 02/17: 133 , norcloazpine : 50 he intermittently refuses psych medsand vital/rx continue depakote and valium to iv. psych adjusted clozapine 50 mg tid moniter closely for sedation or respiratory compromise. psych/care team prior to discharge. Diabetes Basal bolus insulin htn hydralazine DVT prophylaxis with Lovenox Full Code reason for continued hospitalization:intermittent weak/dec po intake, awaiting cultures,ivf ,iv antibiotics.tpn ,psych to adjust meds (also if po intake does not improved in 1-2 days with behaviour control,may need to consider alternate means of feeding). Quality Stroke Does the patient have a stroke diagnosis?: No VTE Prior VTE?: No VTE Risk Level:: Medical - moderate - high VTE Device Contraindication: Treatment Not Indicated VTE Drug Contraindication: N/A - Med Ordered
[2025-03-02] MEDS: Valproic Acid (as Sodium Salt) 500 MG in Dextrose 5 % 50 ML 52.5 MG IV ×2 (09:43→21:33)
--- NOTE | 2025-03-02 09:57 | MHC.CLN ---
F/U PT IS NOW NPO REVIEWED LABS DISCUSSED WITH PHARMACY CONTINUE PPN AT MAX GOAL RATE 80ML/HR WITH 91G LIPIDS PROVIDES 1889 TOTAL KCALS (28KCALS/KG), 192G DEXTROSE, 82G PROTEIN (1.2G/KG) REPLETE LYTES NEEDED
--- NOTE | 2025-03-02 10:47 | PM.EVENT ---
Event Note Date of Service: 03/02/25 Event Note: The patient has mental status remains the same Abdomen is soft and benign I had a long discussion with the guardian Ashley Vo about planned PEG tube placement I reviewed the technique of the procedure I explained the risks including but not limited to bleeding, infections, injury to bowel, esophagus or other organs, tube dislodgement or leak, loss of airway, as well as the benefits and alternatives She says she understands and is given consent on behalf of the patient I have reviewed the CT angiogram of the lungs from 2 weeks ago and this does show a good window in the anterior abdominal wall in the epigastric area for access Time Spent With Patient Time: Total time managing care of this patient today ____ minutes.
[2025-03-02 11:21] LABS: Glucose, Whole Blood 277 mg/dL (60-115)
--- NOTE | 2025-03-02 12:09 | MHC.CM.PN ---
Addendum entered by Malia Mills RN 03/02/25 12:18: PT REMAINS ON PPN. Original Note: EMR REVIEWED, PER HOSPITALIST ROUNDS PLAN FOR PEG TUBE PLACEMENT, PLAN CONT'S TO BE FOR PT TO RETURN TO [facility] ONCE PT IS MEDICALLY CLEARED, CM WILL CONT TO FOLLOW DC NEEDS.
--- NOTE | 2025-03-02 12:51 | PC.NURSE ---
patient knocked over his entire IV pole with TPN infusing and now there is a hole in the tubing, called pharmacy and the tubing cannot be replaced until a new bag of TPN is hung approx 7-8 pm. notififed
[2025-03-02] MEDS: Lactated Ringers 1,000 ML 80 ML IVCONT ×2 (13:31→16:47)
--- NOTE | 2025-03-02 14:41 | PC.NURSE ---
Pt arrived to pre op without name bracelet. Name and person confirmed with staff/photo on file from [facility]. MD/Staff aware. Pt pleasant and cooperative. Consents for surgery completed wit family member via phone.
--- NOTE | 2025-03-02 15:08 | P.CONAN_ITS ---
HPI - Anesthesia Eval Consult details Narrative: peg tube PMFSH Active Problems Active Problems: All Active Problems Alzheimer's dementia (Acute) Hypoxia (Acute) Pneumonia (Acute) Verbalizes suicidal thoughts (Acute) Psychosis (Acute) Intentional self-harm (Acute) Fall (Acute) Schizoaffective disorder (Acute) Past Medical History Medical History GERD (gastroesophageal reflux disease) Diabetes Alzheimer disease Schizoaffective disorder Family History Family history of problems with anesthesia: No Surgical History History of Problems with Anesthesia: No Social History Social History Household Members: Other Housing: Intermediate Are you a primary healthcare administrator to a significant other at home: No Do you presently have visiting nurse or other home services: No Comment: 1:1 sitter Patient Tobacco Use Status: Tobacco use Unknown Smoked in Last 30 Days: No Use of substances other than those prescribed or required for medical reasons: No Currently Displaying Signs/Symptoms of Drug Intoxication Withdrawal: No Have you been hit, kicked, punched, or otherwise hurt by someone within the past year? If so, by whom?: No Are you DNR?: No Advance Directives: No Advance Directives Information Provided: No Do you have thoughts of harming others: None Do you have a plan to hurt others: No Plan Poor oral hygiene: No service: No Meds Allergies Allergy/AdvReac Type Severity Reaction Status Date / Time No Known Allergies Allergy Verified 02/14/25 08:42 Active Medications: Current Medications Acetaminophen (Acetaminophen 325 Mg Tablet) 650 mg PO Q6H PRN PRN Reason: Headache/Pain, Scale 1-10 Al Hydroxide/Mg Hydroxide (Magnesium Hydrox/Alum Hydrox 30 Ml Oral.Susp) 30 ml PO Q6H PRN PRN Reason: Heartburn/Nausea Calcium Carbonate (Calcium Carbonate 750 Mg Tab.Chew) 750 mg PO Q4H PRN PRN Reason: Heartburn Clozapine (Clozapine 25 Mg Tablet) 50 mg PO TID NATE Last Admin: 03/02/25 08:48 Dose: Not Given Dextrose (Dextrose 50 % 25 Gm/50 Ml Syringe) 25 gm IVPUSH Q15M PRN; Protocol PRN Reason: per Hypoglycemia Standing Ord. Diazepam (Diazepam 10 Mg/2 Ml Cartridge) 3 mg IVPUSH TID [facility] Last Admin: 03/02/25 08:49 Dose: Not Given Docusate Sodium (Docusate Sodium 100 Mg Capsule) 100 mg PO BID [facility] Last Admin: 03/02/25 08:49 Dose: Not Given Enoxaparin Sodium (Enoxaparin Sodium 40 Mg/0.4 Ml Syringe) 40 mg SUBCUT Q24H NATE Last Admin: 03/02/25 09:44 Dose: 40 mg Fluoxetine HCl (Fluoxetine Hcl 20 Mg Capsule) 40 mg PO BEDTIME NATE On Hold: 02/22/25 14:23 Last Admin: 02/21/25 22:23 Dose: Not Given Glucagon (Glucagon Hcl 1 Mg Vial) 1 mg IM Q20M PRN PRN Reason: low BG Glucose (Glucose Gel 15 Gm Gel..Gram.) 15 gm PO Q15M PRN; Protocol PRN Reason: per Hypoglycemia Standing Ord. Hydralazine HCl (Hydralazine Hcl 20 Mg/Ml Vial) 5 mg IVPUSH Q6H PRN; Protocol PRN Reason: htn Last Admin: 02/23/25 17:30 Dose: 5 mg Valproic Acid 500 mg/ Dextrose 55 mls @ 52.5 mls/hr IV Q12H [facility] Last Infusion: 03/02/25 10:48 Dose: Infused Nutrition (Parenteral) (Parenteral Nutrition) 1,920 mls @ 80 mls/hr IV .Q24H [facility]; Protocol Stop: 03/02/25 20:59 Last Admin: 03/01/25 21:15 Dose: 80 mls/hr Nutrition (Parenteral) (Parenteral Nutrition) 1,920 mls @ 80 mls/hr IV .Q24H [facility]; Protocol Stop: 03/03/25 20:59 Lactated Ringer's (Lr) 1,000 mls @ 80 mls/hr IVCONT .[id number] [facility] Last Admin: 03/02/25 13:31 Dose: 80 mls/hr Insulin Glargine (Insulin Glargine,Hum.Rec.Anlog 100 Unit/Ml 10 Ml Vial) 24 unit SUBCUT DAILY NATE On Hold: 02/18/25 20:34 Last Admin: 02/18/25 09:21 Dose: Not Given Insulin Human Lispro (Insulin Lispro 100 Unit/Ml 3 Ml Vial) 0 unit SUBCUT QIDACHS [facility]; Protocol Last Admin: 03/02/25 13:57 Dose: Not Given Magnesium Hydroxide (Milk Of Magnesia 30 Ml Oral.Susp) 30 ml PO DAILY PRN PRN Reason: Constipation Melatonin (Melatonin 3 Mg Tablet) 6 mg PO BEDTIME PRN PRN Reason: Insomnia Metoprolol Tartrate (Metoprolol Tartrate 12.5 Mg Halftab) 12.5 mg PO BID [facility]; Protocol Last Admin: 03/02/25 08:49 Dose: Not Given Omeprazole (Omeprazole 20 Mg Capsule.Dr) 20 mg PO DAILY@0630 [facility] Last Admin: 03/02/25 06:27 Dose: 20 mg Perphenazine (Perphenazine 2 Mg Tablet) 2 mg PO BID [facility] Last Admin: 03/02/25 08:49 Dose: Not Given Perphenazine (Perphenazine 4 Mg Tablet) 4 mg PO BID [facility] Last Admin: 03/02/25 08:49 Dose: Not Given Pharmacy Consult (Consult Rx Parenteral Nutrition Ordering) 1 each MISCELLANE DAILY PRN PRN Reason: Consult order Senna (Sennosides 8.6 Mg Tablet) 8.6 mg PO DAILY [facility] Last Admin: 03/02/25 08:49 Dose: Not Given Sodium Biphosphate/Sodium Phosphate (Sodium Phosphate,[place]-Dibasic 133 Ml Enema) 133 ml [place] DAILY PRN PRN Reason: Constipation Sodium Chloride (0.9 % Sodium Chloride Flush 3 Ml Syringe) 3 ml IVFLUSH QSHIFT [facility] Last Admin: 03/01/25 21:23 Dose: 3 ml Trazodone HCl (Trazodone Hcl 50 Mg Tablet) 50 mg PO BEDTIME MRX1 PRN PRN Reason: Insomnia Last Admin: 02/25/25 21:39 Dose: 50 mg Home Medications ?Medication ?Instructions ?Recorded ?Confirmed ?Last Taken ?Type clozapine 100 mg tablet 300 mg PO TID 02/15/2502/1502/13/25 History diazepam 2 mg tablet (Valium) 3 mg PO BID 02/15/25 Unknown History divalproex 500 mg tablet,delayed 500 mg PO BID 5 02/15/25 Unknown History release docusate sodium 100 mg capsule 100 mg PO BID 02/15/25 02/15/25 Unknown History (Colace) dulaglutide 3 mg/0.5 mL 3 mg subcut QWEEK 02/15/25 0 02/15/25 Unknown History subcutaneous pen injector (Trulicity) fluoxetine 40 mg capsule 40 mg PO QPM 02/15/25 Unknown History glucagon 1 mg/0.2 mL subcutaneous 1 mg subcut Q20M PRN low BG 02/15/25 02/15/25 Unknown History solution insulin glargine 100 unit/mL (3 24 unit subcut QAM 02/15/25 Unknown History mL) subcutaneous pen (Lantus Solostar U-100 Insulin) lorazepam 1 mg tablet 1 mg PO BID 02/15/25 5 Unknown History metformin 1,000 mg tablet 1,000 mg PO BID 02/15/25 Unknown History metoprolol tartrate 25 mg tablet 12.5 mg PO BID 02/15/25 Unknown History pantoprazole 40 mg tablet,delayed 40 mg PO DAILY 02/1502/15/25 Unknown History release perphenazine 2 mg tablet 2 mg PO BID 02/15/25 5 Unknown History perphenazine 4 mg tablet 4 mg PO BID 02/15/25 5 Unknown History sennosides 8.6 mg tablet (senna) 8.6 mg PO DAILY 02/1502/15/25 Unknown History sodium phosphates 19 gram-7 118 ml [place] DAILY PRN Consti pation 02/15/25 02/15/25 Unknown History gram/118 mL enema (Fleet Enema) Exam Height,Weight and Vital Signs: Height 5 ft 7 in Weight 67.4 kg Last Vital Signs Temp 97.8 F 03/02/25 13:25 Pulse 76 03/02/25 13:25 Resp 12 03/02/25 13:25 BP 121/53 L 03/02/25 13:25 Pulse Ox 96 03/02/25 13:25 O2 Del Method Room Air 03/02/25 13:25 O2 Flow Rate 2 02/19/25 07:01 Pertinent Lab Results Pertinent Lab Results: Laboratory Tests 02/14/25 02/14/25 02/14/25 09:47 15:08 16:22 WBC 8.9 RBC 4.79 Hgb 14.6 Hct 44.9 MCV 93.7 MCH 30.5 MCHC 32.5 RDW 14.0 Plt Count 224 D MPV 8.9 L Immature Gran % (Auto) 0.6 H Neut % (Auto) 75.5 H Lymph % (Auto) 15.2 L [place] % (Auto) 8.1 Eos % (Auto) 0.3 Baso % (Auto) 0.3 Lymph # (Auto) 1.4 [place] # (Auto) 0.7 Eos # (Auto) 0.0 Baso # (Auto) 0.0 Abs Immat Gran (auto) 0.05 H Absolute Neuts (auto) 6.7 Absolute Nucleated RBC 0.000 Nucleated RBC % (auto) 0.0 Neutrophils % (Manual) Band Neutrophils % Lymphocytes % (Manual) Atypical Lymphs % (Man) Monocytes % (Manual) Eosinophils % (Manual) Abs Neuts (Manual) Lymphocytes # (Manual) Atyp Lymphs # (Manual) Monocytes # (Manual) Eosinophils # (Manual) Smudge Cells Toxic Vacuolation Platelet Estimate Large Platelets Plt Morphology Comment RBC Morphology [place]indy Cells Hold Purple Top O2 Saturation ABG pH at Pt Temp ABG pCO2 at Pt Temp ABG pO2 at Pt Temp ABG HCO3 ABG Base Excess (Actual) VBG pH VBG pCO2 VBG pO2 VBG HCO3 VBG O2 Saturation VBG Base Excess Sodium 149 H 143 Potassium 4.8 4.0 Chloride 107 109 H Carbon Dioxide 24 23 Anion Gap 23 H 15 BUN 9 8 L Creatinine 0.75 0.58 Estim Creat Clear Calc 89.3 115.5 Estimated GFR > 60 > 60 POC Glucose Random Glucose 157 H 111 Estimat Average Glucose Hemoglobin A1c % Osmolality 302 Lactic Acid Calcium 10.2 D 9.2 D Phosphorus Magnesium Total Bilirubin 0.5 Direct Bilirubin AST 35 ALT 17 Alkaline Phosphatase 105 Ammonia Troponin I High Sens 8.1 C-Reactive Protein Total Protein 7.6 Albumin 4.2 Triglycerides Cholesterol LDL Cholesterol, Calc HDL Cholesterol Vitamin B12 TSH Urine Color Yellow Urine Appearance Clear Urine pH 7.5 Ur Specific [place] 1.020 Urine Protein 30 (1+) H Urine Glucose (UA) 250 H Urine Ketones 40 Urine Blood Negative Urine Nitrite Negative Ur Leukocyte Esterase Negative Urine RBC 0-2 Urine WBC 0-5 Ur Squamous Epith Cells 0-2 Urine Bacteria None Seen Hyaline Casts 0-2 Urine Osmolality 684 Ur Random Sodium 197.0 Urine Opiates Screen Ur Buprenorphine Scrn Ur Oxycodone Screen Urine Methadone Screen Urine Fentanyl Screen Ur Barbiturates Screen Valproic Acid Ur Phencyclidine Scrn Clozapine Norclozapine Ur Amphetamines Screen U Benzodiazepines Scrn Urine Cocaine Screen U Marijuana (THC) Screen COVID-19 (KILEY) COVID-19 Clin Com Influenza Type A (PRINCESS) Influenza Type B (PRINCESS) Influenza A & B Note 02/16/25 02/16/25 02/16/25 12:08 14:03 15:00 WBC 6.9 RBC 5.37 Hgb 16.4 Hct 49.1 MCV 91.4 MCH 30.5 MCHC 33.4 RDW 14.1 Plt Count 197 MPV 8.9 L Immature Gran % (Auto) 0.3 Neut % (Auto) 56.8 Lymph % (Auto) 33.9 [place] % (Auto) 6.2 Eos % (Auto) 2.2 Baso % (Auto) 0.6 Lymph # (Auto) 2.4 [place] # (Auto) 0.4 Eos # (Auto) 0.2 Baso # (Auto) 0.0 Abs Immat Gran (auto) 0.02 Absolute Neuts (auto) 3.9 Absolute Nucleated RBC 0.000 Nucleated RBC % (auto) 0.0 Neutrophils % (Manual) Band Neutrophils % Lymphocytes % (Manual) Atypical Lymphs % (Man) Monocytes % (Manual) Eosinophils % (Manual) Abs Neuts (Manual) Lymphocytes # (Manual) Atyp Lymphs # (Manual) Monocytes # (Manual) Eosinophils # (Manual) Smudge Cells Toxic Vacuolation Platelet Estimate Large Platelets Plt Morphology Comment RBC Morphology Sindy Cells Hold Purple Top O2 Saturation ABG pH at Pt Temp ABG pCO2 at Pt Temp ABG pO2 at Pt Temp ABG HCO3 ABG Base Excess (Actual) VBG pH VBG pCO2 VBG pO2 VBG HCO3 VBG O2 Saturation VBG Base Excess Sodium 143 Potassium 4.4 Chloride 105 Carbon Dioxide 27 Anion Gap 15 BUN 17 H Creatinine 0.86 Estim Creat Clear Calc 77.9 Estimated GFR > 60 POC Glucose 91 93 Random Glucose 104 Estimat Average Glucose Hemoglobin A1c % Osmolality Lactic Acid Calcium 10.0 D Phosphorus Magnesium Total Bilirubin 0.5 Direct Bilirubin AST 30 ALT 17 Alkaline Phosphatase 116 Ammonia 22 Troponin I High Sens C-Reactive Protein Total Protein 7.9 Albumin 4.1 Triglycerides Cholesterol LDL Cholesterol, Calc HDL Cholesterol Vitamin B12 TSH Urine Color Urine Appearance Urine pH Ur Specific [place] Urine Protein Urine Glucose (UA) Urine Ketones Urine Blood Urine Nitrite Ur Leukocyte Esterase Urine RBC Urine WBC Ur Squamous Epith Cells Urine Bacteria Hyaline Casts Urine Osmolality Ur Random Sodium Urine Opiates Screen Ur Buprenorphine Scrn Ur Oxycodone Screen Urine Methadone Screen Urine Fentanyl Screen Ur Barbiturates Screen Valproic Acid Ur Phencyclidine Scrn Clozapine Norclozapine Ur Amphetamines Screen U Benzodiazepines Scrn Urine Cocaine Screen U Marijuana (THC) Screen COVID-19 (KILEY) COVID-19 Clin Com Influenza Type A (PRINCESS) Influenza Type B (PRINCESS) Influenza A & B Note 02/16/25 02/16/25 02/16/25 15:24 16:28 16:35 WBC RBC Hgb Hct MCV MCH MCHC RDW Plt Count MPV Immature Gran % (Auto) Neut % (Auto) Lymph % (Auto) [place] % (Auto) Eos % (Auto) Baso % (Auto) Lymph # (Auto) [place] # (Auto) Eos # (Auto) Baso # (Auto) Abs Immat Gran (auto) Absolute Neuts (auto) Absolute Nucleated RBC Nucleated RBC % (auto) Neutrophils % (Manual) Band Neutrophils % Lymphocytes % (Manual) Atypical Lymphs % (Man) Monocytes % (Manual) Eosinophils % (Manual) Abs Neuts (Manual) Lymphocytes # (Manual) Atyp Lymphs # (Manual) Monocytes # (Manual) Eosinophils # (Manual) Smudge Cells Toxic Vacuolation Platelet Estimate Large Platelets Plt Morphology Comment RBC Morphology [place] Cells Hold Purple Top O2 Saturation ABG pH at Pt Temp ABG pCO2 at Pt Temp ABG pO2 at Pt Temp ABG HCO3 ABG Base Excess (Actual) VBG pH 7.41 VBG pCO2 40 VBG pO2 54 VBG HCO3 25 VBG O2 Saturation 82.0 VBG Base Excess 1.0 Sodium Potassium Chloride Carbon Dioxide Anion Gap BUN Creatinine Estim Creat Clear Calc Estimated GFR POC Glucose Random Glucose Estimat Average Glucose Hemoglobin A1c % Osmolality Lactic Acid 1.9 Calcium Phosphorus Magnesium Total Bilirubin Direct Bilirubin AST ALT Alkaline Phosphatase Ammonia 23 Troponin I High Sens C-Reactive Protein Total Protein Albumin Triglycerides Cholesterol LDL Cholesterol, Calc HDL Cholesterol Vitamin B12 TSH Urine Color Yellow Urine Appearance Clear Urine pH 5.5 Ur Specific [place] 1.020 Urine Protein Negative Urine Glucose (UA) Negative Urine Ketones 15 Urine Blood Negative Urine Nitrite Negative Ur Leukocyte Esterase Negative Urine RBC Urine WBC Ur Squamous Epith Cells Urine Bacteria Hyaline Casts Urine Osmolality Ur Random Sodium Urine Opiates Screen Not Detected Ur Buprenorphine Scrn Not Detected Ur Oxycodone Screen Not Detected Urine Methadone Screen Not Detected Urine Fentanyl Screen Not Detected Ur Barbiturates Screen Not Detected Valproic Acid Ur Phencyclidine Scrn Not Detected Clozapine Norclozapine Ur Amphetamines Screen Not Detected U Benzodiazepines Scrn POSITIVE H Urine Cocaine Screen Not Detected U Marijuana (THC) Screen Not Detected COVID-19 (KILEY) COVID-19 Clin Com Influenza Type A (PRINCESS) Influenza Type B (PRINCESS) Influenza A & B Note 02/16/25 02/16/25 02/17/25 16:41 22:58 04:55 WBC 6.5 RBC 4.51 L Hgb 13.6 L Hct 41.3 L MCV 91.6 MCH 30.2 MCHC 32.9 RDW 14.0 Plt Count 166 MPV 9.1 L Immature Gran % (Auto) Neut % (Auto) Lymph % (Auto) [place] % (Auto) Eos % (Auto) Baso % (Auto) Lymph # (Auto) [place] # (Auto) Eos # (Auto) Baso # (Auto) Abs Immat Gran (auto) Absolute Neuts (auto) Absolute Nucleated RBC 0.000 Nucleated RBC % (auto) 0.0 Neutrophils % (Manual) Band Neutrophils % Lymphocytes % (Manual) Atypical Lymphs % (Man) Monocytes % (Manual) Eosinophils % (Manual) Abs Neuts (Manual) Lymphocytes # (Manual) Atyp Lymphs # (Manual) Monocytes # (Manual) Eosinophils # (Manual) Smudge Cells Toxic Vacuolation Platelet Estimate Large Platelets Plt Morphology Comment RBC Morphology [place] Cells Hold Purple Top O2 Saturation ABG pH at Pt Temp ABG pCO2 at Pt Temp ABG pO2 at Pt Temp ABG HCO3 ABG Base Excess (Actual) VBG pH VBG pCO2 VBG pO2 VBG HCO3 VBG O2 Saturation VBG Base Excess Sodium 145 Potassium 3.9 Chloride 112 H Carbon Dioxide 24 Anion Gap 13 BUN 14 Creatinine 0.64 Estim Creat Clear Calc 104.7 Estimated GFR > 60 POC Glucose 96 Random Glucose 83 Estimat Average Glucose Hemoglobin A1c % Osmolality Lactic Acid Calcium 8.9 D Phosphorus Magnesium Total Bilirubin Direct Bilirubin AST ALT Alkaline Phosphatase Ammonia Troponin I High Sens C-Reactive Protein Total Protein Albumin Triglycerides Cholesterol LDL Cholesterol, Calc HDL Cholesterol Vitamin B12 TSH Urine Color Urine Appearance Urine pH Ur Specific [place] Urine Protein Urine Glucose (UA) Urine Ketones Urine Blood Urine Nitrite Ur Leukocyte Esterase Urine RBC Urine WBC Ur Squamous Epith Cells Urine Bacteria Hyaline Casts Urine Osmolality Ur Random Sodium Urine Opiates Screen Ur Buprenorphine Scrn Ur Oxycodone Screen Urine Methadone Screen Urine Fentanyl Screen Ur Barbiturates Screen Valproic Acid Ur Phencyclidine Scrn Clozapine Norclozapine Ur Amphetamines Screen U Benzodiazepines Scrn Urine Cocaine Screen U Marijuana (THC) Screen COVID-19 (KILEY) Negative COVID-19 Clin Com See Note Influenza Type A (PRINCESS) Negative Influenza Type B (PRINCESS) Negative Influenza A & B Note See Note 02/17/25 02/17/25 02/17/25 07:12 08:09 11:31 WBC RBC Hgb Hct MCV MCH MCHC RDW Plt Count MPV Immature Gran % (Auto) Neut % (Auto) Lymph % (Auto) [place] % (Auto) Eos % (Auto) Baso % (Auto) Lymph # (Auto) [place] # (Auto) Eos # (Auto) Baso # (Auto) Abs Immat Gran (auto) Absolute Neuts (auto) Absolute Nucleated RBC Nucleated RBC % (auto) Neutrophils % (Manual) Band Neutrophils % Lymphocytes % (Manual) Atypical Lymphs % (Man) Monocytes % (Manual) Eosinophils % (Manual) Abs Neuts (Manual) Lymphocytes # (Manual) Atyp Lymphs # (Manual) Monocytes # (Manual) Eosinophils # (Manual) Smudge Cells Toxic Vacuolation Platelet Estimate Large Platelets Plt Morphology Comment RBC Morphology Sindy Cells Hold Purple Top O2 Saturation ABG pH at Pt Temp ABG pCO2 at Pt Temp ABG pO2 at Pt Temp ABG HCO3 ABG Base Excess (Actual) VBG pH VBG pCO2 VBG pO2 VBG HCO3 VBG O2 Saturation VBG Base Excess Sodium 146 H Potassium 4.0 Chloride 111 H Carbon Dioxide 24 Anion Gap 15 BUN 15 Creatinine 0.66 Estim Creat Clear Calc 101.5 Estimated GFR > 60 POC Glucose 97 100 Random Glucose 93 Estimat Average Glucose 123 Hemoglobin A1c % 5.9 Osmolality Lactic Acid Calcium 9.0 Phosphorus Magnesium Total Bilirubin 0.4 Direct Bilirubin AST 26 ALT 13 Alkaline Phosphatase 97 Ammonia Troponin I High Sens C-Reactive Protein Total Protein 6.5 Albumin 3.4 L Triglycerides 190 H Cholesterol 170 LDL Cholesterol, Calc 102 H HDL Cholesterol 30 L Vitamin B12 356 TSH 1.01 Urine Color Urine Appearance Urine pH Ur Specific [place] Urine Protein Urine Glucose (UA) Urine Ketones Urine Blood Urine Nitrite Ur Leukocyte Esterase Urine RBC Urine WBC Ur Squamous Epith Cells Urine Bacteria Hyaline Casts Urine Osmolality Ur Random Sodium Urine Opiates Screen Ur Buprenorphine Scrn Ur Oxycodone Screen Urine Methadone Screen Urine Fentanyl Screen Ur Barbiturates Screen Valproic Acid Ur Phencyclidine Scrn Clozapine 133 Norclozapine 50 Ur Amphetamines Screen U Benzodiazepines Scrn Urine Cocaine Screen U Marijuana (THC) Screen COVID-19 (KILEY) COVID-19 Clin Com Influenza Type A (PRINCESS) Influenza Type B (PRINCESS) Influenza A & B Note 02/17/25 02/17/25 02/17/25 16:20 21:02 22:09 WBC RBC Hgb Hct MCV MCH MCHC RDW Plt Count MPV Immature Gran % (Auto) Neut % (Auto) Lymph % (Auto) [place] % (Auto) Eos % (Auto) Baso % (Auto) Lymph # (Auto) [place] # (Auto) Eos # (Auto) Baso # (Auto) Abs Immat Gran (auto) Absolute Neuts (auto) Absolute Nucleated RBC Nucleated RBC % (auto) Neutrophils % (Manual) Band Neutrophils % Lymphocytes % (Manual) Atypical Lymphs % (Man) Monocytes % (Manual) Eosinophils % (Manual) Abs Neuts (Manual) Lymphocytes # (Manual) Atyp Lymphs # (Manual) Monocytes # (Manual) Eosinophils # (Manual) Smudge Cells Toxic Vacuolation Platelet Estimate Large Platelets Plt Morphology Comment RBC Morphology [place] Cells Hold Purple Top O2 Saturation ABG pH at Pt Temp ABG pCO2 at Pt Temp ABG pO2 at Pt Temp ABG HCO3 ABG Base Excess (Actual) VBG pH VBG pCO2 VBG pO2 VBG HCO3 VBG O2 Saturation VBG Base Excess Sodium 147 H Potassium 4.1 Chloride 109 H Carbon Dioxide 25 Anion Gap 17 BUN 16 Creatinine 0.66 Estim Creat Clear Calc 101.5 Estimated GFR > 60 POC Glucose 118 H 104 Random Glucose 112 Estimat Average Glucose Hemoglobin A1c % Osmolality Lactic Acid Calcium 9.1 Phosphorus Magnesium Total Bilirubin Direct Bilirubin AST ALT Alkaline Phosphatase Ammonia Troponin I High Sens C-Reactive Protein Total Protein Albumin Triglycerides Cholesterol LDL Cholesterol, Calc HDL Cholesterol Vitamin B12 TSH Urine Color Urine Appearance Urine pH Ur Specific [place] Urine Protein Urine Glucose (UA) Urine Ketones Urine Blood Urine Nitrite Ur Leukocyte Esterase Urine RBC Urine WBC Ur Squamous Epith Cells Urine Bacteria Hyaline Casts Urine Osmolality Ur Random Sodium Urine Opiates Screen Ur Buprenorphine Scrn Ur Oxycodone Screen Urine Methadone Screen Urine Fentanyl Screen Ur Barbiturates Screen Valproic Acid Ur Phencyclidine Scrn Clozapine Norclozapine Ur Amphetamines Screen U Benzodiazepines Scrn Urine Cocaine Screen U Marijuana (THC) Screen COVID-19 (KILEY) COVID-19 Clin Com Influenza Type A (PRINCESS) Influenza Type B (PRINCESS) Influenza A & B Note 02/17/25 02/18/25 02/18/25 22:15 00:31 02:01 WBC RBC Hgb Hct MCV MCH MCHC RDW Plt Count MPV Immature Gran % (Auto) Neut % (Auto) Lymph % (Auto) [place] % (Auto) Eos % (Auto) Baso % (Auto) Lymph # (Auto) [place] # (Auto) Eos # (Auto) Baso # (Auto) Abs Immat Gran (auto) Absolute Neuts (auto) Absolute Nucleated RBC Nucleated RBC % (auto) Neutrophils % (Manual) Band Neutrophils % Lymphocytes % (Manual) Atypical Lymphs % (Man) Monocytes % (Manual) Eosinophils % (Manual) Abs Neuts (Manual) Lymphocytes # (Manual) Atyp Lymphs # (Manual) Monocytes # (Manual) Eosinophils # (Manual) Smudge Cells Toxic Vacuolation Platelet Estimate Large Platelets Plt Morphology Comment RBC Morphology [place] Cells Hold Purple Top O2 Saturation 99.0 ABG pH at Pt Temp 7.36 ABG pCO2 at Pt Temp 37 ABG pO2 at Pt Temp 148 H ABG HCO3 21 L ABG Base Excess (Actual) -3.4 VBG pH 7.40 VBG pCO2 37 VBG pO2 50 VBG HCO3 24 VBG O2 Saturation 77.0 VBG Base Excess -0.3 Sodium Potassium Chloride Carbon Dioxide Anion Gap BUN Creatinine Estim Creat Clear Calc Estimated GFR POC Glucose 147 H Random Glucose Estimat Average Glucose Hemoglobin A1c % Osmolality Lactic Acid Calcium Phosphorus Magnesium Total Bilirubin Direct Bilirubin AST ALT Alkaline Phosphatase Ammonia Troponin I High Sens C-Reactive Protein Total Protein Albumin Triglycerides Cholesterol LDL Cholesterol, Calc HDL Cholesterol Vitamin B12 TSH Urine Color Urine Appearance Urine pH Ur Specific [place] Urine Protein Urine Glucose (UA) Urine Ketones Urine Blood Urine Nitrite Ur Leukocyte Esterase Urine RBC Urine WBC Ur Squamous Epith Cells Urine Bacteria Hyaline Casts Urine Osmolality Ur Random Sodium Urine Opiates Screen Ur Buprenorphine Scrn Ur Oxycodone Screen Urine Methadone Screen Urine Fentanyl Screen Ur Barbiturates Screen Valproic Acid Ur Phencyclidine Scrn Clozapine Norclozapine Ur Amphetamines Screen U Benzodiazepines Scrn Urine Cocaine Screen U Marijuana (THC) Screen COVID-19 (KILEY) COVID-19 Clin Com Influenza Type A (PRINCESS) Influenza Type B (PRINCESS) Influenza A & B Note 02/18/25 02/18/25 02/18/25 09:02 18:54 19:44 WBC RBC Hgb Hct MCV MCH MCHC RDW Plt Count MPV Immature Gran % (Auto) Neut % (Auto) Lymph % (Auto) [place] % (Auto) Eos % (Auto) Baso % (Auto) Lymph # (Auto) [place] # (Auto) Eos # (Auto) Baso # (Auto) Abs Immat Gran (auto) Absolute Neuts (auto) Absolute Nucleated RBC Nucleated RBC % (auto) Neutrophils % (Manual) Band Neutrophils % Lymphocytes % (Manual) Atypical Lymphs % (Man) Monocytes % (Manual) Eosinophils % (Manual) Abs Neuts (Manual) Lymphocytes # (Manual) Atyp Lymphs # (Manual) Monocytes # (Manual) Eosinophils # (Manual) Smudge Cells Toxic Vacuolation Platelet Estimate Large Platelets Plt Morphology Comment RBC Morphology [place] Cells Hold Purple Top O2 Saturation ABG pH at Pt Temp ABG pCO2 at Pt Temp ABG pO2 at Pt Temp ABG HCO3 ABG Base Excess (Actual) VBG pH VBG pCO2 VBG pO2 VBG HCO3 VBG O2 Saturation VBG Base Excess Sodium 145 Potassium 3.8 Chloride 110 H Carbon Dioxide 27 Anion Gap 12 BUN 9 Creatinine 0.65 Estim Creat Clear Calc 103.1 Estimated GFR > 60 POC Glucose 152 H 116 H Random Glucose 129 H Estimat Average Glucose Hemoglobin A1c % Osmolality Lactic Acid Calcium 8.8 Phosphorus Magnesium Total Bilirubin Direct Bilirubin AST ALT Alkaline Phosphatase Ammonia Troponin I High Sens C-Reactive Protein Total Protein Albumin Triglycerides Cholesterol LDL Cholesterol, Calc HDL Cholesterol Vitamin B12 TSH Urine Color Urine Appearance Urine pH Ur Specific [place] Urine Protein Urine Glucose (UA) Urine Ketones Urine Blood Urine Nitrite Ur Leukocyte Esterase Urine RBC Urine WBC Ur Squamous Epith Cells Urine Bacteria Hyaline Casts Urine Osmolality Ur Random Sodium Urine Opiates Screen Ur Buprenorphine Scrn Ur Oxycodone Screen Urine Methadone Screen Urine Fentanyl Screen Ur Barbiturates Screen Valproic Acid Ur Phencyclidine Scrn Clozapine Norclozapine Ur Amphetamines Screen U Benzodiazepines Scrn Urine Cocaine Screen U Marijuana (THC) Screen COVID-19 ([facility]) COVID-19 Clin Com Influenza Type A (PRINCESS) Influenza Type B (PRINCESS) Influenza A & B Note 02/19/25 02/19/25 02/19/25 03:15 08:44 09:16 WBC RBC Hgb Hct MCV MCH MCHC RDW Plt Count MPV Immature Gran % (Auto) Neut % (Auto) Lymph % (Auto) [place] % (Auto) Eos % (Auto) Baso % (Auto) Lymph # (Auto) [place] # (Auto) Eos # (Auto) Baso # (Auto) Abs Immat Gran (auto) Absolute Neuts (auto) Absolute Nucleated RBC Nucleated RBC % (auto) Neutrophils % (Manual) Band Neutrophils % Lymphocytes % (Manual) Atypical Lymphs % (Man) Monocytes % (Manual) Eosinophils % (Manual) Abs Neuts (Manual) Lymphocytes # (Manual) Atyp Lymphs # (Manual) Monocytes # (Manual) Eosinophils # (Manual) Smudge Cells Toxic Vacuolation Platelet Estimate Large Platelets Plt Morphology Comment RBC Morphology [place] Cells Hold Purple Top O2 Saturation ABG pH at Pt Temp ABG pCO2 at Pt Temp ABG pO2 at Pt Temp ABG HCO3 ABG Base Excess (Actual) VBG pH VBG pCO2 VBG pO2 VBG HCO3 VBG O2 Saturation VBG Base Excess Sodium 140 Potassium 4.5 Chloride 110 H Carbon Dioxide 25 Anion Gap 10 L BUN 10 Creatinine 0.58 Estim Creat Clear Calc 115.5 Estimated GFR > 60 POC Glucose 140 H 156 H Random Glucose 178 H Estimat Average Glucose Hemoglobin A1c % Osmolality Lactic Acid Calcium 8.7 Phosphorus Magnesium Total Bilirubin Direct Bilirubin AST ALT Alkaline Phosphatase Ammonia Troponin I High Sens C-Reactive Protein Total Protein Albumin Triglycerides Cholesterol LDL Cholesterol, Calc HDL Cholesterol Vitamin B12 TSH Urine Color Urine Appearance Urine pH Ur Specific [place] Urine Protein Urine Glucose (UA) Urine Ketones Urine Blood Urine Nitrite Ur Leukocyte Esterase Urine RBC Urine WBC Ur Squamous Epith Cells Urine Bacteria Hyaline Casts Urine Osmolality Ur Random Sodium Urine Opiates Screen Ur Buprenorphine Scrn Ur Oxycodone Screen Urine Methadone Screen Urine Fentanyl Screen Ur Barbiturates Screen Valproic Acid Ur Phencyclidine Scrn Clozapine Norclozapine Ur Amphetamines Screen U Benzodiazepines Scrn Urine Cocaine Screen U Marijuana (THC) Screen COVID-19 (KILEY) COVID-19 Clin Com Influenza Type A (PRINCESS) Influenza Type B (PRINCESS) Influenza A & B Note 02/19/25 02/19/2502/20/25 14:46 20:41 03:05 WBC RBC Hgb Hct MCV MCH MCHC RDW Plt Count MPV Immature Gran % (Auto) Neut % (Auto) Lymph % (Auto) [place] % (Auto) Eos % (Auto) Baso % (Auto) Lymph # (Auto) [place] # (Auto) Eos # (Auto) Baso # (Auto) Abs Immat Gran (auto) Absolute Neuts (auto) Absolute Nucleated RBC Nucleated RBC % (auto) Neutrophils % (Manual) Band Neutrophils % Lymphocytes % (Manual) Atypical Lymphs % (Man) Monocytes % (Manual) Eosinophils % (Manual) Abs Neuts (Manual) Lymphocytes # (Manual) Atyp Lymphs # (Manual) Monocytes # (Manual) Eosinophils # (Manual) Smudge Cells Toxic Vacuolation Platelet Estimate Large Platelets Plt Morphology Comment RBC Morphology [place] Cells Hold Purple Top O2 Saturation ABG pH at Pt Temp ABG pCO2 at Pt Temp ABG pO2 at Pt Temp ABG HCO3 ABG Base Excess (Actual) VBG pH VBG pCO2 VBG pO2 VBG HCO3 VBG O2 Saturation VBG Base Excess Sodium Potassium Chloride Carbon Dioxide Anion Gap BUN Creatinine Estim Creat Clear Calc Estimated GFR POC Glucose 175 H 167 H 147 H Random Glucose Estimat Average Glucose Hemoglobin A1c % Osmolality Lactic Acid Calcium Phosphorus Magnesium Total Bilirubin Direct Bilirubin AST ALT Alkaline Phosphatase Ammonia Troponin I High Sens C-Reactive Protein Total Protein Albumin Triglycerides Cholesterol LDL Cholesterol, Calc HDL Cholesterol Vitamin B12 TSH Urine Color Urine Appearance Urine pH Ur Specific [place] Urine Protein Urine Glucose (UA) Urine Ketones Urine Blood Urine Nitrite Ur Leukocyte Esterase Urine RBC Urine WBC Ur Squamous Epith Cells Urine Bacteria Hyaline Casts Urine Osmolality Ur Random Sodium Urine Opiates Screen Ur Buprenorphine Scrn Ur Oxycodone Screen Urine Methadone Screen Urine Fentanyl Screen Ur Barbiturates Screen Valproic Acid Ur Phencyclidine Scrn Clozapine Norclozapine Ur Amphetamines Screen U Benzodiazepines Scrn Urine Cocaine Screen U Marijuana (THC) Screen COVID-19 (KILEY) COVID-19 Clin Com Influenza Type A (PRINCESS) Influenza Type B (PRINCESS) Influenza A & B Note 02/20/25 02/20/25 02/20/25 09:36 15:55 16:06 WBC 4.5 L RBC 4.27 L Hgb 13.2 L Hct 37.3 L MCV 87.4 MCH 30.9 MCHC 35.4 RDW 13.8 Plt Count 148 L MPV 8.7 L Immature Gran % (Auto) Neut % (Auto) Lymph % (Auto) [place] % (Auto) Eos % (Auto) Baso % (Auto) Lymph # (Auto) [place] # (Auto) Eos # (Auto) Baso # (Auto) Abs Immat Gran (auto) Absolute Neuts (auto) Absolute Nucleated RBC 0.000 Nucleated RBC % (auto) 0.0 Neutrophils % (Manual) Band Neutrophils % Lymphocytes % (Manual) Atypical Lymphs % (Man) Monocytes % (Manual) Eosinophils % (Manual) Abs Neuts (Manual) Lymphocytes # (Manual) Atyp Lymphs # (Manual) Monocytes # (Manual) Eosinophils # (Manual) Smudge Cells Toxic Vacuolation Platelet Estimate Large Platelets Plt Morphology Comment RBC Morphology [place] Cells Hold Purple Top O2 Saturation ABG pH at Pt Temp ABG pCO2 at Pt Temp ABG pO2 at Pt Temp ABG HCO3 ABG Base Excess (Actual) VBG pH 7.49 H VBG pCO2 37 VBG pO2 64 VBG HCO3 28 H VBG O2 Saturation 90.0 VBG Base Excess 5.2 Sodium 144 Potassium 3.3 D Chloride 109 H Carbon Dioxide 27 Anion Gap 11 L BUN 6 L Creatinine 0.56 Estim Creat Clear Calc 119.6 Estimated GFR > 60 POC Glucose 163 H Random Glucose 178 H Estimat Average Glucose Hemoglobin A1c % Osmolality Lactic Acid Calcium 8.9 Phosphorus Magnesium Total Bilirubin 0.4 Direct Bilirubin AST 35 ALT 13 Alkaline Phosphatase 95 Ammonia Troponin I High Sens C-Reactive Protein Total Protein 6.3 L Albumin 3.2 L Triglycerides Cholesterol LDL Cholesterol, Calc HDL Cholesterol Vitamin B12 TSH Urine Color Urine Appearance Urine pH Ur Specific [place] Urine Protein Urine Glucose (UA) Urine Ketones Urine Blood Urine Nitrite Ur Leukocyte Esterase Urine RBC Urine WBC Ur Squamous Epith Cells Urine Bacteria Hyaline Casts Urine Osmolality Ur Random Sodium Urine Opiates Screen Ur Buprenorphine Scrn Ur Oxycodone Screen Urine Methadone Screen Urine Fentanyl Screen Ur Barbiturates Screen Valproic Acid Ur Phencyclidine Scrn Clozapine Norclozapine Ur Amphetamines Screen U Benzodiazepines Scrn Urine Cocaine Screen U Marijuana (THC) Screen COVID-19 (KILEY) COVID-19 Clin Com Influenza Type A (PRINCESS) Influenza Type B (PRINCESS) Influenza A & B Note 02/20/25 02/20/25 02/20/25 16:09 16:18 20:30 WBC RBC Hgb Hct MCV MCH MCHC RDW Plt Count MPV Immature Gran % (Auto) Neut % (Auto) Lymph % (Auto) [place] % (Auto) Eos % (Auto) Baso % (Auto) Lymph # (Auto) [place] # (Auto) Eos # (Auto) Baso # (Auto) Abs Immat Gran (auto) Absolute Neuts (auto) Absolute Nucleated RBC Nucleated RBC % (auto) Neutrophils % (Manual) Band Neutrophils % Lymphocytes % (Manual) Atypical Lymphs % (Man) Monocytes % (Manual) Eosinophils % (Manual) Abs Neuts (Manual) Lymphocytes # (Manual) Atyp Lymphs # (Manual) Monocytes # (Manual) Eosinophils # (Manual) Smudge Cells Toxic Vacuolation Platelet Estimate Large Platelets Plt Morphology Comment RBC Morphology [place] Cells Hold Purple Top O2 Saturation ABG pH at Pt Temp ABG pCO2 at Pt Temp ABG pO2 at Pt Temp ABG HCO3 ABG Base Excess (Actual) VBG pH VBG pCO2 VBG pO2 VBG HCO3 VBG O2 Saturation VBG Base Excess Sodium Potassium Chloride Carbon Dioxide Anion Gap BUN Creatinine Estim Creat Clear Calc Estimated GFR POC Glucose 172 H 150 H Random Glucose Estimat Average Glucose Hemoglobin A1c % Osmolality Lactic Acid Calcium Phosphorus Magnesium Total Bilirubin Direct Bilirubin AST ALT Alkaline Phosphatase Ammonia 32 Troponin I High Sens C-Reactive Protein Total Protein Albumin Triglycerides Cholesterol LDL Cholesterol, Calc HDL Cholesterol Vitamin B12 TSH Urine Color Urine Appearance Urine pH Ur Specific [place] Urine Protein Urine Glucose (UA) Urine Ketones Urine Blood Urine Nitrite Ur Leukocyte Esterase Urine RBC Urine WBC Ur Squamous Epith Cells Urine Bacteria Hyaline Casts Urine Osmolality Ur Random Sodium Urine Opiates Screen Ur Buprenorphine Scrn Ur Oxycodone Screen Urine Methadone Screen Urine Fentanyl Screen Ur Barbiturates Screen Valproic Acid Ur Phencyclidine Scrn Clozapine Norclozapine Ur Amphetamines Screen U Benzodiazepines Scrn Urine Cocaine Screen U Marijuana (THC) Screen COVID-19 (KILEY) COVID-19 Clin Com Influenza Type A (PRINCESS) Influenza Type B (PRINCESS) Influenza A & B Note 02/21/25 02/21/25 02/21/25 02:12 05:48 17:26 WBC RBC Hgb Hct MCV MCH MCHC RDW Plt Count MPV Immature Gran % (Auto) Neut % (Auto) Lymph % (Auto) [place] % (Auto) Eos % (Auto) Baso % (Auto) Lymph # (Auto) [place] # (Auto) Eos # (Auto) Baso # (Auto) Abs Immat Gran (auto) Absolute Neuts (auto) Absolute Nucleated RBC Nucleated RBC % (auto) Neutrophils % (Manual) Band Neutrophils % Lymphocytes % (Manual) Atypical Lymphs % (Man) Monocytes % (Manual) Eosinophils % (Manual) Abs Neuts (Manual) Lymphocytes # (Manual) Atyp Lymphs # (Manual) Monocytes # (Manual) Eosinophils # (Manual) Sm[place] Cells Toxic Vacuolation Platelet Estimate Large Platelets Plt Morphology Comment RBC Morphology [place] Cells Hold Purple Top O2 Saturation ABG pH at Pt Temp ABG pCO2 at Pt Temp ABG pO2 at Pt Temp ABG HCO3 ABG Base Excess (Actual) VBG pH VBG pCO2 VBG pO2 VBG HCO3 VBG O2 Saturation VBG Base Excess Sodium 145 Potassium 3.1 L Chloride 108 Carbon Dioxide 28 Anion Gap 12 BUN 6 L Creatinine 0.56 Estim Creat Clear Calc 119.6 Estimated GFR > 60 POC Glucose 149 H 129 H Random Glucose 131 H Estimat Average Glucose Hemoglobin A1c % Osmolality Lactic Acid Calcium 8.9 Phosphorus 2.9 Magnesium 1.7 Total Bilirubin Direct Bilirubin AST ALT Alkaline Phosphatase Ammonia Troponin I High Sens C-Reactive Protein Total Protein Albumin 3.0 L Triglycerides 191 H Cholesterol LDL Cholesterol, Calc HDL Cholesterol Vitamin B12 TSH Urine Color Urine Appearance Urine pH Ur Specific [place] Urine Protein Urine Glucose (UA) Urine Ketones Urine Blood Urine Nitrite Ur Leukocyte Esterase Urine RBC Urine WBC Ur Squamous Epith Cells Urine Bacteria Hyaline Casts Urine Osmolality Ur Random Sodium Urine Opiates Screen Ur Buprenorphine Scrn Ur Oxycodone Screen Urine Methadone Screen Urine Fentanyl Screen Ur Barbiturates Screen Valproic Acid < 12.5 L Ur Phencyclidine Scrn Clozapine Norclozapine Ur Amphetamines Screen U Benzodiazepines Scrn Urine Cocaine Screen U Marijuana (THC) Screen COVID-19 (KILEY) COVID-19 Clin Com Influenza Type A (PRINCESS) Influenza Type B (PRINCESS) Influenza A & B Note 02/21/25 02/22/25 02/22/25 20:23 01:54 06:25 WBC RBC Hgb Hct MCV MCH MCHC RDW Plt Count MPV Immature Gran % (Auto) Neut % (Auto) Lymph % (Auto) [place] % (Auto) Eos % (Auto) Baso % (Auto) Lymph # (Auto) [place] # (Auto) Eos # (Auto) Baso # (Auto) Abs Immat Gran (auto) Absolute Neuts (auto) Absolute Nucleated RBC Nucleated RBC % (auto) Neutrophils % (Manual) Band Neutrophils % Lymphocytes % (Manual) Atypical Lymphs % (Man) Monocytes % (Manual) Eosinophils % (Manual) Abs Neuts (Manual) Lymphocytes # (Manual) Atyp Lymphs # (Manual) Monocytes # (Manual) Eosinophils # (Manual) [place] Cells Toxic Vacuolation Platelet Estimate Large Platelets Plt Morphology Comment RBC Morphology [place] Cells Hold Purple Top SEE NOTE O2 Saturation ABG pH at Pt Temp ABG pCO2 at Pt Temp ABG pO2 at Pt Temp ABG HCO3 ABG Base Excess (Actual) VBG pH VBG pCO2 VBG pO2 VBG HCO3 VBG O2 Saturation VBG Base Excess Sodium 145 Potassium 3.5 Chloride 110 H Carbon Dioxide 27 Anion Gap 12 BUN 10 Creatinine 0.62 Estim Creat Clear Calc 108.0 Estimated GFR > 60 POC Glucose 112 132 H Random Glucose 202 H Estimat Average Glucose Hemoglobin A1c % Osmolality Lactic Acid Calcium 9.1 Phosphorus 2.9 Magnesium 1.9 Total Bilirubin 0.5 Direct Bilirubin 0.2 AST 42 H ALT 21 Alkaline Phosphatase 93 Ammonia Troponin I High Sens C-Reactive Protein Total Protein 6.1 L Albumin 3.1 L Triglycerides Cholesterol LDL Cholesterol, Calc HDL Cholesterol Vitamin B12 TSH Urine Color Urine Appearance Urine pH Ur Specific [place] Urine Protein Urine Glucose (UA) Urine Ketones Urine Blood Urine Nitrite Ur Leukocyte Esterase Urine RBC Urine WBC Ur Squamous Epith Cells Urine Bacteria Hyaline Casts Urine Osmolality Ur Random Sodium Urine Opiates Screen Ur Buprenorphine Scrn Ur Oxycodone Screen Urine Methadone Screen Urine Fentanyl Screen Ur Barbiturates Screen Valproic Acid Ur Phencyclidine Scrn Clozapine Norclozapine Ur Amphetamines Screen U Benzodiazepines Scrn Urine Cocaine Screen U Marijuana (THC) Screen COVID-19 (KILEY) COVID-19 Clin Com Influenza Type A (PRINCESS) Influenza Type B (PRINCESS) Influenza A & B Note 02/22/25 02/22/25 02/22/25 08:26 11:45 13:37 WBC 7.9 RBC 4.19 L Hgb 13.1 L Hct 36.9 L MCV 88.1 MCH 31.3 MCHC 35.5 RDW 13.8 Plt Count 196 D MPV 8.6 L Immature Gran % (Auto) Neut % (Auto) Lymph % (Auto) [place] % (Auto) Eos % (Auto) Baso % (Auto) Lymph # (Auto) [place] # (Auto) Eos # (Auto) Baso # (Auto) Abs Immat Gran (auto) Absolute Neuts (auto) Absolute Nucleated RBC 0.000 Nucleated RBC % (auto) 0.0 Neutrophils % (Manual) 82 H Band Neutrophils % 0 L Lymphocytes % (Manual) 15 L Atypical Lymphs % (Man) 1 Monocytes % (Manual) 2 Eosinophils % (Manual) Abs Neuts (Manual) 6.5 Lymphocytes # (Manual) 1.2 Atyp Lymphs # (Manual) 0.1 Monocytes # (Manual) 0.2 Eosinophils # (Manual) [place] Cells Toxic Vacuolation PRESENT Platelet Estimate NORMAL Large Platelets Plt Morphology Comment NORMAL RBC Morphology NORMAL [place] Cells Hold Purple Top O2 Saturation ABG pH at Pt Temp ABG pCO2 at Pt Temp ABG pO2 at Pt Temp ABG HCO3 ABG Base Excess (Actual) VBG pH VBG pCO2 VBG pO2 VBG HCO3 VBG O2 Saturation VBG Base Excess Sodium Potassium Chloride Carbon Dioxide Anion Gap BUN Creatinine Estim Creat Clear Calc Estimated GFR POC Glucose 229 H 204 H Random Glucose Estimat Average Glucose Hemoglobin A1c % Osmolality Lactic Acid Calcium Phosphorus Magnesium Total Bilirubin Direct Bilirubin AST ALT Alkaline Phosphatase Ammonia Troponin I High Sens C-Reactive Protein Total Protein Albumin Triglycerides Cholesterol LDL Cholesterol, Calc HDL Cholesterol Vitamin B12 TSH Urine Color Urine Appearance Urine pH Ur Specific [place] Urine Protein Urine Glucose (UA) Urine Ketones Urine Blood Urine Nitrite Ur Leukocyte Esterase Urine RBC Urine WBC Ur Squamous Epith Cells Urine Bacteria Hyaline Casts Urine Osmolality Ur Random Sodium Urine Opiates Screen Ur Buprenorphine Scrn Ur Oxycodone Screen Urine Methadone Screen Urine Fentanyl Screen Ur Barbiturates Screen Valproic Acid Ur Phencyclidine Scrn Clozapine 147 Norclozapine 65 Ur Amphetamines Screen U Benzodiazepines Scrn Urine Cocaine Screen U Marijuana (THC) Screen COVID-19 (KI[facility]) COVID-19 Clin Com Influenza Type A (PRINCESS) Influenza Type B (PRINCESS) Influenza A & B Note 02/22/25 02/22/25 02/22/25 16:06 16:27 19:53 WBC RBC Hgb Hct MCV MCH MCHC RDW Plt Count MPV Immature Gran % (Auto) Neut % (Auto) Lymph % (Auto) [place] % (Auto) Eos % (Auto) Baso % (Auto) Lymph # (Auto) [place] # (Auto) Eos # (Auto) Baso # (Auto) Abs Immat Gran (auto) Absolute Neuts (auto) Absolute Nucleated RBC Nucleated RBC % (auto) Neutrophils % (Manual) Band Neutrophils % Lymphocytes % (Manual) Atypical Lymphs % (Man) Monocytes % (Manual) Eosinophils % (Manual) Abs Neuts (Manual) Lymphocytes # (Manual) Atyp Lymphs # (Manual) Monocytes # (Manual) Eosinophils # (Manual) [place] Cells Toxic Vacuolation Platelet Estimate Large Platelets Plt Morphology Comment RBC Morphology [place] Cells Hold Purple Top O2 Saturation ABG pH at Pt Temp ABG pCO2 at Pt Temp ABG pO2 at Pt Temp ABG HCO3 ABG Base Excess (Actual) VBG pH VBG pCO2 VBG pO2 VBG HCO3 VBG O2 Saturation VBG Base Excess Sodium Potassium Chloride Carbon Dioxide Anion Gap BUN Creatinine Estim Creat Clear Calc Estimated GFR POC Glucose 159 H 156 H Random Glucose Estimat Average Glucose Hemoglobin A1c % Osmolality Lactic Acid Calcium Phosphorus Magnesium Total Bilirubin Direct Bilirubin AST ALT Alkaline Phosphatase Ammonia 33 Troponin I High Sens 5.7 C-Reactive Protein 1.46 H Total Protein Albumin Triglycerides Cholesterol LDL Cholesterol, Calc HDL Cholesterol Vitamin B12 TSH Urine Color Urine Appearance Urine pH Ur Specific [place] Urine Protein Urine Glucose (UA) Urine Ketones Urine Blood Urine Nitrite Ur Leukocyte Esterase Urine RBC Urine WBC Ur Squamous Epith Cells Urine Bacteria Hyaline Casts Urine Osmolality Ur Random Sodium Urine Opiates Screen Ur Buprenorphine Scrn Ur Oxycodone Screen Urine Methadone Screen Urine Fentanyl Screen Ur Barbiturates Screen Valproic Acid 26.2 L Ur Phencyclidine Scrn Clozapine Norclozapine Ur Amphetamines Screen U Benzodiazepines Scrn Urine Cocaine Screen U Marijuana (THC) Screen COVID-19 (KILEY) COVID-19 Clin Com Influenza Type A (PRINCESS) Influenza Type B (PRINCESS) Influenza A & B Note 02/23/25 02/23/25 02/23/25 03:22 06:37 06:37 WBC 7.7 RBC 4.00 L Hgb 12.2 L Hct 35.9 L MCV 89.8 MCH 30.5 MCHC 34.0 RDW 13.6 Plt Count 223 MPV 9.3 L Immature Gran % (Auto) Neut % (Auto) Lymph % (Auto) [place] % (Auto) Eos % (Auto) Baso % (Auto) Lymph # (Auto) [place] # (Auto) Eos # (Auto) Baso # (Auto) Abs Immat Gran (auto) Absolute Neuts (auto) Absolute Nucleated RBC 0.000 Nucleated RBC % (auto) 0.0 Neutrophils % (Manual) 64 Band Neutrophils % 0 L Lymphocytes % (Manual) 23 Atypical Lymphs % (Man) 1 Monocytes % (Manual) 9 Eosinophils % (Manual) 3 Abs Neuts (Manual) 4.9 Lymphocytes # (Manual) 1.8 Atyp Lymphs # (Manual) 0.1 Monocytes # (Manual) 0.7 Eosinophils # (Manual) 0.2 [place] Cells PRESENT Toxic Vacuolation PRESENT Platelet Estimate NORMAL Large Platelets PRESENT Plt Morphology Comment NOTED RBC Morphology NOTED [place] Cells 1+ (0-2) Hold Purple Top O2 Saturation ABG pH at Pt Temp ABG pCO2 at Pt Temp ABG pO2 at Pt Temp ABG HCO3 ABG Base Excess (Actual) VBG pH VBG pCO2 VBG pO2 VBG HCO3 VBG O2 Saturation VBG Base Excess Sodium 145 145 Potassium 3.7 Chloride Carbon Dioxide Anion Gap BUN Creatinine Estim Creat Clear Calc Estimated GFR POC Glucose 213 H Random Glucose Estimat Average Glucose Hemoglobin A1c % Osmolality Lactic Acid Calcium Phosphorus Magnesium Total Bilirubin Direct Bilirubin AST ALT Alkaline Phosphatase Ammonia Troponin I High Sens C-Reactive Protein Total Protein Albumin Triglycerides Cholesterol LDL Cholesterol, Calc HDL Cholesterol Vitamin B12 TSH Urine Color Urine Appearance Urine pH Ur Specific [place] Urine Protein Urine Glucose (UA) Urine Ketones Urine Blood Urine Nitrite Ur Leukocyte Esterase Urine RBC Urine WBC Ur Squamous Epith Cells Urine Bacteria Hyaline Casts Urine Osmolality Ur Random Sodium Urine Opiates Screen Ur Buprenorphine Scrn Ur Oxycodone Screen Urine Methadone Screen Urine Fentanyl Screen Ur Barbiturates Screen Valproic Acid Ur Phencyclidine Scrn Clozapine Norclozapine Ur Amphetamines Screen U Benzodiazepines Scrn Urine Cocaine Screen U Marijuana (THC) Screen COVID-19 (KILEY) COVID-19 Clin Com Influenza Type A (PRINCESS) Influenza Type B (PRINCESS) Influenza A & B Note 02/23/25 02/23/25 02/23/25 06:37 06:37 06:37 WBC RBC Hgb Hct MCV MCH MCHC RDW Plt Count MPV Immature Gran % (Auto) Neut % (Auto) Lymph % (Auto) [place] % (Auto) Eos % (Auto) Baso % (Auto) Lymph # (Auto) [place] # (Auto) Eos # (Auto) Baso # (Auto) Abs Immat Gran (auto) Absolute Neuts (auto) Absolute Nucleated RBC Nucleated RBC % (auto) Neutrophils % (Manual) Band Neutrophils % Lymphocytes % (Manual) Atypical Lymphs % (Man) Monocytes % (Manual) Eosinophils % (Manual) Abs Neuts (Manual) Lymphocytes # (Manual) Atyp Lymphs # (Manual) Monocytes # (Manual) Eosinophils # (Manual) [place] Cells Toxic Vacuolation Platelet Estimate Large Platelets Plt Morphology Comment RBC Morphology [place] Cells Hold Purple Top O2 Saturation ABG pH at Pt Temp ABG pCO2 at Pt Temp ABG pO2 at Pt Temp ABG HCO3 ABG Base Excess (Actual) VBG pH VBG pCO2 VBG pO2 VBG HCO3 VBG O2 Saturation VBG Base Excess Sodium Potassium 3.7 Chloride 113 H 112 H Carbon Dioxide 27 27 Anion Gap 9 L BUN Creatinine Estim Creat Clear Calc Estimated GFR POC Glucose Random Glucose Estimat Average Glucose Hemoglobin A1c % Osmolality Lactic Acid Calcium Phosphorus Magnesium Total Bilirubin Direct Bilirubin AST ALT Alkaline Phosphatase Ammonia Troponin I High Sens C-Reactive Protein Total Protein Albumin Triglycerides Cholesterol LDL Cholesterol, Calc HDL Cholesterol Vitamin B12 TSH Urine Color Urine Appearance Urine pH Ur Specific [place] Urine Protein Urine Glucose (UA) Urine Ketones Urine Blood Urine Nitrite Ur Leukocyte Esterase Urine RBC Urine WBC Ur Squamous Epith Cells Urine Bacteria Hyaline Casts Urine Osmolality Ur Random Sodium Urine Opiates Screen Ur Buprenorphine Scrn Ur Oxycodone Screen Urine Methadone Screen Urine Fentanyl Screen Ur Barbiturates Screen Valproic Acid Ur Phencyclidine Scrn Clozapine Norclozapine Ur Amphetamines Screen U Benzodiazepines Scrn Urine Cocaine Screen U Marijuana (THC) Screen COVID-19 (KILEY) COVID-19 Clin Com Influenza Type A (PRINCESS) Influenza Type B (PRINCESS) Influenza A & B Note 02/23/25 02/23/25 02/23/25 06:37 06:37 06:37 WBC RBC Hgb Hct MCV MCH MCHC RDW Plt Count MPV Immature Gran % (Auto) Neut % (Auto) Lymph % (Auto) [place] % (Auto) Eos % (Auto) Baso % (Auto) Lymph # (Auto) [place] # (Auto) Eos # (Auto) Baso # (Auto) Abs Immat Gran (auto) Absolute Neuts (auto) Absolute Nucleated RBC Nucleated RBC % (auto) Neutrophils % (Manual) Band Neutrophils % Lymphocytes % (Manual) Atypical Lymphs % (Man) Monocytes % (Manual) Eosinophils % (Manual) Abs Neuts (Manual) Lymphocytes # (Manual) Atyp Lymphs # (Manual) Monocytes # (Manual) Eosinophils # (Manual) Smudge Cells Toxic Vacuolation Platelet Estimate Large Platelets Plt Morphology Comment RBC Morphology [place] Cells Hold Purple Top O2 Saturation ABG pH at Pt Temp ABG pCO2 at Pt Temp ABG pO2 at Pt Temp ABG HCO3 ABG Base Excess (Actual) VBG pH VBG pCO2 VBG pO2 VBG HCO3 VBG O2 Saturation VBG Base Excess Sodium Potassium Chloride Carbon Dioxide Anion Gap 10 L BUN 11 11 Creatinine 0.59 0.59 Estim Creat Clear Calc 113.5 Estimated GFR POC Glucose Random Glucose Estimat Average Glucose Hemoglobin A1c % Osmolality Lactic Acid Calcium Phosphorus Magnesium Total Bilirubin Direct Bilirubin AST ALT Alkaline Phosphatase Ammonia Troponin I High Sens C-Reactive Protein Total Protein Albumin Triglycerides Cholesterol LDL Cholesterol, Calc HDL Cholesterol Vitamin B12 TSH Urine Color Urine Appearance Urine pH Ur Specific [place] Urine Protein Urine Glucose (UA) Urine Ketones Urine Blood Urine Nitrite Ur Leukocyte Esterase Urine RBC Urine WBC Ur Squamous Epith Cells Urine Bacteria Hyaline Casts Urine Osmolality Ur Random Sodium Urine Opiates Screen Ur Buprenorphine Scrn Ur Oxycodone Screen Urine Methadone Screen Urine Fentanyl Screen Ur Barbiturates Screen Valproic Acid Ur Phencyclidine Scrn Clozapine Norclozapine Ur Amphetamines Screen U Benzodiazepines Scrn Urine Cocaine Screen U Marijuana (THC) Screen COVID-19 (KILEY) COVID-19 Clin Com Influenza Type A (PRINCESS) Influenza Type B (PRINCESS) Influenza A & B Note 02/23/25 02/23/25 02/23/25 06:37 06:37 06:37 WBC RBC Hgb Hct MCV MCH MCHC RDW Plt Count MPV Immature Gran % (Auto) Neut % (Auto) Lymph % (Auto) [place] % (Auto) Eos % (Auto) Baso % (Auto) Lymph # (Auto) [place] # (Auto) Eos # (Auto) Baso # (Auto) Abs Immat Gran (auto) Absolute Neuts (auto) Absolute Nucleated RBC Nucleated RBC % (auto) Neutrophils % (Manual) Band Neutrophils % Lymphocytes % (Manual) Atypical Lymphs % (Man) Monocytes % (Manual) Eosinophils % (Manual) Abs Neuts (Manual) Lymphocytes # (Manual) Atyp Lymphs # (Manual) Monocytes # (Manual) Eosinophils # (Manual) Smudge Cells Toxic Vacuolation Platelet Estimate Large Platelets Plt Morphology Comment RBC Morphology [place]indy Cells Hold Purple Top O2 Saturation ABG pH at Pt Temp ABG pCO2 at Pt Temp ABG pO2 at Pt Temp ABG HCO3 ABG Base Excess (Actual) VBG pH VBG pCO2 VBG pO2 VBG HCO3 VBG O2 Saturation VBG Base Excess Sodium Potassium Chloride Carbon Dioxide Anion Gap BUN Creatinine Estim Creat Clear Calc 113.5 Estimated GFR > 60 > 60 POC Glucose Random Glucose 128 H 130 H Estimat Average Glucose Hemoglobin A1c % Osmolality Lactic Acid Calcium 9.2 Phosphorus Magnesium Total Bilirubin Direct Bilirubin AST ALT Alkaline Phosphatase Ammonia Troponin I High Sens C-Reactive Protein Total Protein Albumin Triglycerides Cholesterol LDL Cholesterol, Calc HDL Cholesterol Vitamin B12 TSH Urine Color Urine Appearance Urine pH Ur Specific [place] Urine Protein Urine Glucose (UA) Urine Ketones Urine Blood Urine Nitrite Ur Leukocyte Esterase Urine RBC Urine WBC Ur Squamous Epith Cells Urine Bacteria Hyaline Casts Urine Osmolality Ur Random Sodium Urine Opiates Screen Ur Buprenorphine Scrn Ur Oxycodone Screen Urine Methadone Screen Urine Fentanyl Screen Ur Barbiturates Screen Valproic Acid Ur Phencyclidine Scrn Clozapine Norclozapine Ur Amphetamines Screen U Benzodiazepines Scrn Urine Cocaine Screen U Marijuana (THC) Screen COVID-19 (KILEY) COVID-19 Clin Com Influenza Type A (PRINCESS) Influenza Type B (PRINCESS) Influenza A & B Note 02/23/25 02/23/25 02/23/25 06:37 06:37 11:42 WBC RBC Hgb Hct MCV MCH MCHC RDW Plt Count MPV Immature Gran % (Auto) Neut % (Auto) Lymph % (Auto) [place] % (Auto) Eos % (Auto) Baso % (Auto) Lymph # (Auto) [place] # (Auto) Eos # (Auto) Baso # (Auto) Abs Immat Gran (auto) Absolute Neuts (auto) Absolute Nucleated RBC Nucleated RBC % (auto) Neutrophils % (Manual) Band Neutrophils % Lymphocytes % (Manual) Atypical Lymphs % (Man) Monocytes % (Manual) Eosinophils % (Manual) Abs Neuts (Manual) Lymphocytes # (Manual) Atyp Lymphs # (Manual) Monocytes # (Manual) Eosinophils # (Manual) Smudge Cells Toxic Vacuolation Platelet Estimate Large Platelets Plt Morphology Comment RBC Morphology [place] Cells Hold Purple Top O2 Saturation ABG pH at Pt Temp ABG pCO2 at Pt Temp ABG pO2 at Pt Temp ABG HCO3 ABG Base Excess (Actual) VBG pH VBG pCO2 VBG pO2 VBG HCO3 VBG O2 Saturation VBG Base Excess Sodium Potassium Chloride Carbon Dioxide Anion Gap BUN Creatinine Estim Creat Clear Calc Estimated GFR POC Glucose 172 H Random Glucose Estimat Average Glucose Hemoglobin A1c % Osmolality Lactic Acid Calcium 9.4 Phosphorus 2.8 Magnesium 1.8 Total Bilirubin 0.4 Direct Bilirubin AST 42 H ALT 25 Alkaline Phosphatase 95 Ammonia Troponin I High Sens 9.2 D C-Reactive Protein 1.66 H Total Protein 6.5 Albumin 3.4 L 3.5 Triglycerides Cholesterol LDL Cholesterol, Calc HDL Cholesterol Vitamin B12 TSH Urine Color Urine Appearance Urine pH Ur Specific [place] Urine Protein Urine Glucose (UA) Urine Ketones Urine Blood Urine Nitrite Ur Leukocyte Esterase Urine RBC Urine WBC Ur Squamous Epith Cells Urine Bacteria Hyaline Casts Urine Osmolality Ur Random Sodium Urine Opiates Screen Ur Buprenorphine Scrn Ur Oxycodone Screen Urine Methadone Screen Urine Fentanyl Screen Ur Barbiturates Screen Valproic Acid Ur Phencyclidine Scrn Clozapine Norclozapine Ur Amphetamines Screen U Benzodiazepines Scrn Urine Cocaine Screen U Marijuana (THC) Screen COVID-19 (KILEY) COVID-19 Clin Com Influenza Type A (PRINCESS) Influenza Type B (PRINCESS) Influenza A & B Note 02/23/25 02/23/25 02/23/25 15:34 18:09 19:41 WBC RBC Hgb Hct MCV MCH MCHC RDW Plt Count MPV Immature Gran % (Auto) Neut % (Auto) Lymph % (Auto) [place] % (Auto) Eos % (Auto) Baso % (Auto) Lymph # (Auto) [place] # (Auto) Eos # (Auto) Baso # (Auto) Abs Immat Gran (auto) Absolute Neuts (auto) Absolute Nucleated RBC Nucleated RBC % (auto) Neutrophils % (Manual) Band Neutrophils % Lymphocytes % (Manual) Atypical Lymphs % (Man) Monocytes % (Manual) Eosinophils % (Manual) Abs Neuts (Manual) Lymphocytes # (Manual) Atyp Lymphs # (Manual) Monocytes # (Manual) Eosinophils # (Manual) Smudge Cells Toxic Vacuolation Platelet Estimate Large Platelets Plt Morphology Comment RBC Morphology [place] Cells Hold Purple Top O2 Saturation ABG pH at Pt Temp ABG pCO2 at Pt Temp ABG pO2 at Pt Temp ABG HCO3 ABG Base Excess (Actual) VBG pH VBG pCO2 VBG pO2 VBG HCO3 VBG O2 Saturation VBG Base Excess Sodium Potassium Chloride Carbon Dioxide Anion Gap BUN Creatinine Estim Creat Clear Calc Estimated GFR POC Glucose 168 H 176 H 179 H Random Glucose Estimat Average Glucose Hemoglobin A1c % Osmolality Lactic Acid Calcium Phosphorus Magnesium Total Bilirubin Direct Bilirubin AST ALT Alkaline Phosphatase Ammonia Troponin I High Sens C-Reactive Protein Total Protein Albumin Triglycerides Cholesterol LDL Cholesterol, Calc HDL Cholesterol Vitamin B12 TSH Urine Color Urine Appearance Urine pH Ur Specific [place] Urine Protein Urine Glucose (UA) Urine Ketones Urine Blood Urine Nitrite Ur Leukocyte Esterase Urine RBC Urine WBC Ur Squamous Epith Cells Urine Bacteria Hyaline Casts Urine Osmolality Ur Random Sodium Urine Opiates Screen Ur Buprenorphine Scrn Ur Oxycodone Screen Urine Methadone Screen Urine Fentanyl Screen Ur Barbiturates Screen Valproic Acid Ur Phencyclidine Scrn Clozapine Norclozapine Ur Amphetamines Screen U Benzodiazepines Scrn Urine Cocaine Screen U Marijuana (THC) Screen COVID-19 (KILEY) COVID-19 Clin Com Influenza Type A (PRINCESS) Influenza Type B (PRINCESS) Influenza A & B Note 02/24/25 02/24/25 02/24/25 03:45 06:09 09:14 WBC RBC Hgb Hct MCV MCH MCHC RDW Plt Count MPV Immature Gran % (Auto) Neut % (Auto) Lymph % (Auto) [place] % (Auto) Eos % (Auto) Baso % (Auto) Lymph # (Auto) [place] # (Auto) Eos # (Auto) Baso # (Auto) Abs Immat Gran (auto) Absolute Neuts (auto) 4.8 Absolute Nucleated RBC Nucleated RBC % (auto) Neutrophils % (Manual) Band Neutrophils % Lymphocytes % (Manual) Atypical Lymphs % (Man) Monocytes % (Manual) Eosinophils % (Manual) Abs Neuts (Manual) Lymphocytes # (Manual) Atyp Lymphs # (Manual) Monocytes # (Manual) Eosinophils # (Manual) Smudge Cells Toxic Vacuolation Platelet Estimate Large Platelets Plt Morphology Comment RBC Morphology [place] Cells Hold Purple Top SEE NOTE O2 Saturation ABG pH at Pt Temp ABG pCO2 at Pt Temp ABG pO2 at Pt Temp ABG HCO3 ABG Base Excess (Actual) VBG pH VBG pCO2 VBG pO2 VBG HCO3 VBG O2 Saturation VBG Base Excess Sodium 143 Potassium 3.6 Chloride 111 H Carbon Dioxide 26 Anion Gap 10 L BUN 13 Creatinine 0.59 Estim Creat Clear Calc 113.5 Estimated GFR > 60 POC Glucose 267 H 245 H Random Glucose 264 H Estimat Average Glucose Hemoglobin A1c % Osmolality Lactic Acid Calcium 9.1 Phosphorus 3.5 Magnesium 1.9 Total Bilirubin 0.3 Direct Bilirubin AST 25 ALT 19 Alkaline Phosphatase 85 Ammonia Troponin I High Sens 3.4 D C-Reactive Protein 0.90 H Total Protein 6.1 L Albumin 3.1 L Triglycerides Cholesterol LDL Cholesterol, Calc HDL Cholesterol Vitamin B12 TSH Urine Color Urine Appearance Urine pH Ur Specific [place] Urine Protein Urine Glucose (UA) Urine Ketones Urine Blood Urine Nitrite Ur Leukocyte Esterase Urine RBC Urine WBC Ur Squamous Epith Cells Urine Bacteria Hyaline Casts Urine Osmolality Ur Random Sodium Urine Opiates Screen Ur Buprenorphine Scrn Ur Oxycodone Screen Urine Methadone Screen Urine Fentanyl Screen Ur Barbiturates Screen Valproic Acid Ur Phencyclidine Scrn Clozapine Norclozapine Ur Amphetamines Screen U Benzodiazepines Scrn Urine Cocaine Screen U Marijuana (THC) Screen COVID-19 (KILEY) COVID-19 Clin Com Influenza Type A (PRINCESS) Influenza Type B (PRINCESS) Influenza A & B Note 02/24/25 02/24/25 02/25/25 15:25 21:49 01:14 WBC RBC Hgb Hct MCV MCH MCHC RDW Plt Count MPV Immature Gran % (Auto) Neut % (Auto) Lymph % (Auto) [place] % (Auto) Eos % (Auto) Baso % (Auto) Lymph # (Auto) [place] # (Auto) Eos # (Auto) Baso # (Auto) Abs Immat Gran (auto) Absolute Neuts (auto) Absolute Nucleated RBC Nucleated RBC % (auto) Neutrophils % (Manual) Band Neutrophils % Lymphocytes % (Manual) Atypical Lymphs % (Man) Monocytes % (Manual) Eosinophils % (Manual) Abs Neuts (Manual) Lymphocytes # (Manual) Atyp Lymphs # (Manual) Monocytes # (Manual) Eosinophils # (Manual) Smudge Cells Toxic Vacuolation Platelet Estimate Large Platelets Plt Morphology Comment RBC Morphology [place] Cells Hold Purple Top O2 Saturation ABG pH at Pt Temp ABG pCO2 at Pt Temp ABG pO2 at Pt Temp ABG HCO3 ABG Base Excess (Actual) VBG pH VBG pCO2 VBG pO2 VBG HCO3 VBG O2 Saturation VBG Base Excess Sodium Potassium Chloride Carbon Dioxide Anion Gap BUN Creatinine Estim Creat Clear Calc Estimated GFR POC Glucose 139 H 213 H 196 H Random Glucose Estimat Average Glucose Hemoglobin A1c % Osmolality Lactic Acid Calcium Phosphorus Magnesium Total Bilirubin Direct Bilirubin AST ALT Alkaline Phosphatase Ammonia Troponin I High Sens C-Reactive Protein Total Protein Albumin Triglycerides Cholesterol LDL Cholesterol, Calc HDL Cholesterol Vitamin B12 TSH Urine Color Urine Appearance Urine pH Ur Specific [place] Urine Protein Urine Glucose (UA) Urine Ketones Urine Blood Urine Nitrite Ur Leukocyte Esterase Urine RBC Urine WBC Ur Squamous Epith Cells Urine Bacteria Hyaline Casts Urine Osmolality Ur Random Sodium Urine Opiates Screen Ur Buprenorphine Scrn Ur Oxycodone Screen Urine Methadone Screen Urine Fentanyl Screen Ur Barbiturates Screen Valproic Acid Ur Phencyclidine Scrn Clozapine Norclozapine Ur Amphetamines Screen U Benzodiazepines Scrn Urine Cocaine Screen U Marijuana (THC) Screen COVID-19 (KILEY) COVID-19 Clin Com Influenza Type A (PRINCESS) Influenza Type B (PRINCESS) Influenza A & B Note 02/25/25 02/25/25 02/25/25 05:53 06:51 09:14 WBC RBC Hgb Hct MCV MCH MCHC RDW Plt Count MPV Immature Gran % (Auto) Neut % (Auto) Lymph % (Auto) [place] % (Auto) Eos % (Auto) Baso % (Auto) Lymph # (Auto) [place] # (Auto) Eos # (Auto) Baso # (Auto) Abs Immat Gran (auto) Absolute Neuts (auto) 4.8 Absolute Nucleated RBC Nucleated RBC % (auto) Neutrophils % (Manual) Band Neutrophils % Lymphocytes % (Manual) Atypical Lymphs % (Man) Monocytes % (Manual) Eosinophils % (Manual) Abs Neuts (Manual) Lymphocytes # (Manual) Atyp Lymphs # (Manual) Monocytes # (Manual) Eosinophils # (Manual) [place] Cells Toxic Vacuolation Platelet Estimate Large Platelets Plt Morphology Comment RBC Morphology [place] Cells Hold Purple Top SEE NOTE O2 Saturation ABG pH at Pt Temp ABG pCO2 at Pt Temp ABG pO2 at Pt Temp ABG HCO3 ABG Base Excess (Actual) VBG pH VBG pCO2 VBG pO2 VBG HCO3 VBG O2 Saturation VBG Base Excess Sodium 141 Potassium 4.0 Chloride 109 H Carbon Dioxide 27 Anion Gap 9 L BUN 15 Creatinine 0.59 Estim Creat Clear Calc 113.5 Estimated GFR > 60 POC Glucose 233 H Random Glucose 254 H Estimat Average Glucose Hemoglobin A1c % Osmolality Lactic Acid Calcium 9.1 Phosphorus 3.5 Magnesium 1.9 Total Bilirubin 0.2 Direct Bilirubin < 0.2 AST 21 ALT 16 Alkaline Phosphatase 85 Ammonia Troponin I High Sens < 2.7 C-Reactive Protein Total Protein 5.8 L Albumin 2.9 L Triglycerides Cholesterol LDL Cholesterol, Calc HDL Cholesterol Vitamin B12 TSH Urine Color Urine Appearance Urine pH Ur Specific [place] Urine Protein Urine Glucose (UA) Urine Ketones Urine Blood Urine Nitrite Ur Leukocyte Esterase Urine RBC Urine WBC Ur Squamous Epith Cells Urine Bacteria Hyaline Casts Urine Osmolality Ur Random Sodium Urine Opiates Screen Ur Buprenorphine Scrn Ur Oxycodone Screen Urine Methadone Screen Urine Fentanyl Screen Ur Barbiturates Screen Valproic Acid Ur Phencyclidine Scrn Clozapine Norclozapine Ur Amphetamines Screen U Benzodiazepines Scrn Urine Cocaine Screen U Marijuana (THC) Screen COVID-19 (KILEY) COVID-19 Clin Com Influenza Type A (PRINCESS) Influenza Type B (PRINCESS) Influenza A & B Note 02/25/25 02/25/25 02/25/25 09:26 11:44 15:47 WBC RBC Hgb Hct MCV MCH MCHC RDW Plt Count MPV Immature Gran % (Auto) Neut % (Auto) Lymph % (Auto) [place] % (Auto) Eos % (Auto) Baso % (Auto) Lymph # (Auto) [place] # (Auto) Eos # (Auto) Baso # (Auto) Abs Immat Gran (auto) Absolute Neuts (auto) Absolute Nucleated RBC Nucleated RBC % (auto) Neutrophils % (Manual) Band Neutrophils % Lymphocytes % (Manual) Atypical Lymphs % (Man) Monocytes % (Manual) Eosinophils % (Manual) Abs Neuts (Manual) Lymphocytes # (Manual) Atyp Lymphs # (Manual) Monocytes # (Manual) Eosinophils # (Manual) [place] Cells Toxic Vacuolation Platelet Estimate Large Platelets Plt Morphology Comment RBC Morphology [place] Cells Hold Purple Top O2 Saturation ABG pH at Pt Temp ABG pCO2 at Pt Temp ABG pO2 at Pt Temp ABG HCO3 ABG Base Excess (Actual) VBG pH VBG pCO2 VBG pO2 VBG HCO3 VBG O2 Saturation VBG Base Excess Sodium Potassium Chloride Carbon Dioxide Anion Gap BUN Creatinine Estim Creat Clear Calc Estimated GFR POC Glucose 259 H 188 H 235 H Random Glucose Estimat Average Glucose Hemoglobin A1c % Osmolality Lactic Acid Calcium Phosphorus Magnesium Total Bilirubin Direct Bilirubin AST ALT Alkaline Phosphatase Ammonia Troponin I High Sens C-Reactive Protein Total Protein Albumin Triglycerides Cholesterol LDL Cholesterol, Calc HDL Cholesterol Vitamin B12 TSH Urine Color Urine Appearance Urine pH Ur Specific [place] Urine Protein Urine Glucose (UA) Urine Ketones Urine Blood Urine Nitrite Ur Leukocyte Esterase Urine RBC Urine WBC Ur Squamous Epith Cells Urine Bacteria Hyaline Casts Urine Osmolality Ur Random Sodium Urine Opiates Screen Ur Buprenorphine Scrn Ur Oxycodone Screen Urine Methadone Screen Urine Fentanyl Screen Ur Barbiturates Screen Valproic Acid Ur Phencyclidine Scrn Clozapine Norclozapine Ur Amphetamines Screen U Benzodiazepines Scrn Urine Cocaine Screen U Marijuana (THC) Screen COVID-19 (KILEY) COVID-19 Clin Com Influenza Type A (PRINCESS) Influenza Type B (PRINCESS) Influenza A & B Note 02/25/25 02/26/25 02/26/25 21:16 01:43 05:54 WBC 6.9 RBC 4.05 L Hgb 12.5 L Hct 36.5 L MCV 90.1 MCH 30.9 MCHC 34.2 RDW 13.8 Plt Count 187 MPV 9.7 Immature Gran % (Auto) Neut % (Auto) Lymph % (Auto) [place] % (Auto) Eos % (Auto) Baso % (Auto) Lymph # (Auto) [place] # (Auto) Eos # (Auto) Baso # (Auto) Abs Immat Gran (auto) Absolute Neuts (auto) Absolute Nucleated RBC 0.000 Nucleated RBC % (auto) 0.0 Neutrophils % (Manual) Band Neutrophils % Lymphocytes % (Manual) Atypical Lymphs % (Man) Monocytes % (Manual) Eosinophils % (Manual) Abs Neuts (Manual) Lymphocytes # (Manual) Atyp Lymphs # (Manual) Monocytes # (Manual) Eosinophils # (Manual) [place] Cells Toxic Vacuolation Platelet Estimate Large Platelets Plt Morphology Comment RBC Morphology [place] Cells Hold Purple Top O2 Saturation ABG pH at Pt Temp ABG pCO2 at Pt Temp ABG pO2 at Pt Temp ABG HCO3 ABG Base Excess (Actual) VBG pH VBG pCO2 VBG pO2 VBG HCO3 VBG O2 Saturation VBG Base Excess Sodium 141 Potassium 4.1 Chloride 107 Carbon Dioxide 26 Anion Gap 12 BUN 15 Creatinine 0.60 Estim Creat Clear Calc 111.6 Estimated GFR > 60 POC Glucose 219 H 232 H Random Glucose 239 H Estimat Average Glucose Hemoglobin A1c % Osmolality Lactic Acid Calcium 9.2 Phosphorus 3.6 Magnesium 1.9 Total Bilirubin 0.3 Direct Bilirubin AST 19 ALT 14 Alkaline Phosphatase 90 Ammonia Troponin I High Sens < 2.7 C-Reactive Protein 0.83 H Total Protein 6.2 L Albumin 3.0 L Triglycerides Cholesterol LDL Cholesterol, Calc HDL Cholesterol Vitamin B12 TSH Urine Color Urine Appearance Urine pH Ur Specific [place] Urine Protein Urine Glucose (UA) Urine Ketones Urine Blood Urine Nitrite Ur Leukocyte Esterase Urine RBC Urine WBC Ur Squamous Epith Cells Urine Bacteria Hyaline Casts Urine Osmolality Ur Random Sodium Urine Opiates Screen Ur Buprenorphine Scrn Ur Oxycodone Screen Urine Methadone Screen Urine Fentanyl Screen Ur Barbiturates Screen Valproic Acid Ur Phencyclidine Scrn Clozapine Norclozapine Ur Amphetamines Screen U Benzodiazepines Scrn Urine Cocaine Screen U Marijuana (THC) Screen COVID-19 (KILEY) COVID-19 Clin Com Influenza Type A (PRINCESS) Influenza Type B (PRINCESS) Influenza A & B Note 02/26/25 02/26/25 02/26/25 05:57 11:13 16:08 WBC RBC Hgb Hct MCV MCH MCHC RDW Plt Count MPV Immature Gran % (Auto) Neut % (Auto) Lymph % (Auto) [place] % (Auto) Eos % (Auto) Baso % (Auto) Lymph # (Auto) [place] # (Auto) Eos # (Auto) Baso # (Auto) Abs Immat Gran (auto) Absolute Neuts (auto) Absolute Nucleated RBC Nucleated RBC % (auto) Neutrophils % (Manual) Band Neutrophils % Lymphocytes % (Manual) Atypical Lymphs % (Man) Monocytes % (Manual) Eosinophils % (Manual) Abs Neuts (Manual) Lymphocytes # (Manual) Atyp Lymphs # (Manual) Monocytes # (Manual) Eosinophils # (Manual) [place] Cells Toxic Vacuolation Platelet Estimate Large Platelets Plt Morphology Comment RBC Morphology [place] Cells Hold Purple Top O2 Saturation ABG pH at Pt Temp ABG pCO2 at Pt Temp ABG pO2 at Pt Temp ABG HCO3 ABG Base Excess (Actual) VBG pH VBG pCO2 VBG pO2 VBG HCO3 VBG O2 Saturation VBG Base Excess Sodium Potassium Chloride Carbon Dioxide Anion Gap BUN Creatinine Estim Creat Clear Calc Estimated GFR POC Glucose 244 H 242 H 335 H Random Glucose Estimat Average Glucose Hemoglobin A1c % Osmolality Lactic Acid Calcium Phosphorus Magnesium Total Bilirubin Direct Bilirubin AST ALT Alkaline Phosphatase Ammonia Troponin I High Sens C-Reactive Protein Total Protein Albumin Triglycerides Cholesterol LDL Cholesterol, Calc HDL Cholesterol Vitamin B12 TSH Urine Color Urine Appearance Urine pH Ur Specific [place] Urine Protein Urine Glucose (UA) Urine Ketones Urine Blood Urine Nitrite Ur Leukocyte Esterase Urine RBC Urine WBC Ur Squamous Epith Cells Urine Bacteria Hyaline Casts Urine Osmolality Ur Random Sodium Urine Opiates Screen Ur Buprenorphine Scrn Ur Oxycodone Screen Urine Methadone Screen Urine Fentanyl Screen Ur Barbiturates Screen Valproic Acid Ur Phencyclidine Scrn Clozapine Norclozapine Ur Amphetamines Screen U Benzodiazepines Scrn Urine Cocaine Screen U Marijuana (THC) Screen COVID-19 (KILEY) COVID-19 Clin Com Influenza Type A (PRINCESS) Influenza Type B (PRINCESS) Influenza A & B Note 02/26/25 02/27/25 02/27/25 20:18 06:37 07:23 WBC RBC Hgb Hct MCV MCH MCHC RDW Plt Count MPV Immature Gran % (Auto) Neut % (Auto) Lymph % (Auto) [place] % (Auto) Eos % (Auto) Baso % (Auto) Lymph # (Auto) [place] # (Auto) Eos # (Auto) Baso # (Auto) Abs Immat Gran (auto) Absolute Neuts (auto) 4.9 Absolute Nucleated RBC Nucleated RBC % (auto) Neutrophils % (Manual) Band Neutrophils % Lymphocytes % (Manual) Atypical Lymphs % (Man) Monocytes % (Manual) Eosinophils % (Manual) Abs Neuts (Manual) Lymphocytes # (Manual) Atyp Lymphs # (Manual) Monocytes # (Manual) Eosinophils # (Manual) [place] Cells Toxic Vacuolation Platelet Estimate Large Platelets Plt Morphology Comment RBC Morphology [place] Cells Hold Purple Top SEE NOTE O2 Saturation ABG pH at Pt Temp ABG pCO2 at Pt Temp ABG pO2 at Pt Temp ABG HCO3 ABG Base Excess (Actual) VBG pH VBG pCO2 VBG pO2 VBG HCO3 VBG O2 Saturation VBG Base Excess Sodium 139 Potassium 4.4 Chloride 102 Carbon Dioxide 30 H Anion Gap 11 L BUN 16 Creatinine 0.64 Estim Creat Clear Calc 104.7 Estimated GFR > 60 POC Glucose 221 H 272 H Random Glucose 294 H Estimat Average Glucose Hemoglobin A1c % Osmolality Lactic Acid Calcium 9.4 Phosphorus 3.2 Magnesium 1.9 Total Bilirubin Direct Bilirubin AST ALT Alkaline Phosphatase Ammonia Troponin I High Sens C-Reactive Protein Total Protein Albumin 3.1 L Triglycerides Cholesterol LDL Cholesterol, Calc HDL Cholesterol Vitamin B12 TSH Urine Color Urine Appearance Urine pH Ur Specific [place] Urine Protein Urine Glucose (UA) Urine Ketones Urine Blood Urine Nitrite Ur Leukocyte Esterase Urine RBC Urine WBC Ur Squamous Epith Cells Urine Bacteria Hyaline Casts Urine Osmolality Ur Random Sodium Urine Opiates Screen Ur Buprenorphine Scrn Ur Oxycodone Screen Urine Methadone Screen Urine Fentanyl Screen Ur Barbiturates Screen Valproic Acid Ur Phencyclidine Scrn Clozapine Norclozapine Ur Amphetamines Screen U Benzodiazepines Scrn Urine Cocaine Screen U Marijuana (THC) Screen COVID-19 (KILEY) COVID-19 Clin Com Influenza Type A (PRINCESS) Influenza Type B (PRINCESS) Influenza A & B Note 02/27/25 02/27/25 02/27/25 11:06 16:10 21:25 WBC RBC Hgb Hct MCV MCH MCHC RDW Plt Count MPV Immature Gran % (Auto) Neut % (Auto) Lymph % (Auto) [place] % (Auto) Eos % (Auto) Baso % (Auto) Lymph # (Auto) [place] # (Auto) Eos # (Auto) Baso # (Auto) Abs Immat Gran (auto) Absolute Neuts (auto) Absolute Nucleated RBC Nucleated RBC % (auto) Neutrophils % (Manual) Band Neutrophils % Lymphocytes % (Manual) Atypical Lymphs % (Man) Monocytes % (Manual) Eosinophils % (Manual) Abs Neuts (Manual) Lymphocytes # (Manual) Atyp Lymphs # (Manual) Monocytes # (Manual) Eosinophils # (Manual) Smudge Cells Toxic Vacuolation Platelet Estimate Large Platelets Plt Morphology Comment RBC Morphology [place] Cells Hold Purple Top O2 Saturation ABG pH at Pt Temp ABG pCO2 at Pt Temp ABG pO2 at Pt Temp ABG HCO3 ABG Base Excess (Actual) VBG pH VBG pCO2 VBG pO2 VBG HCO3 VBG O2 Saturation VBG Base Excess Sodium Potassium Chloride Carbon Dioxide Anion Gap BUN Creatinine Estim Creat Clear Calc Estimated GFR POC Glucose 238 H 258 H 268 H Random Glucose Estimat Average Glucose Hemoglobin A1c % Osmolality Lactic Acid Calcium Phosphorus Magnesium Total Bilirubin Direct Bilirubin AST ALT Alkaline Phosphatase Ammonia Troponin I High Sens C-Reactive Protein Total Protein Albumin Triglycerides Cholesterol LDL Cholesterol, Calc HDL Cholesterol Vitamin B12 TSH Urine Color Urine Appearance Urine pH Ur Specific [place] Urine Protein Urine Glucose (UA) Urine Ketones Urine Blood Urine Nitrite Ur Leukocyte Esterase Urine RBC Urine WBC Ur Squamous Epith Cells Urine Bacteria Hyaline Casts Urine Osmolality Ur Random Sodium Urine Opiates Screen Ur Buprenorphine Scrn Ur Oxycodone Screen Urine Methadone Screen Urine Fentanyl Screen Ur Barbiturates Screen Valproic Acid Ur Phencyclidine Scrn Clozapine Norclozapine Ur Amphetamines Screen U Benzodiazepines Scrn Urine Cocaine Screen U Marijuana (THC) Screen COVID-19 (KILEY) COVID-19 Clin Com Influenza Type A (PRINCESS) Influenza Type B (PRINCESS) Influenza A & B Note 02/28/25 02/28/25 02/28/25 07:25 07:42 11:22 WBC RBC Hgb Hct MCV MCH MCHC RDW Plt Count MPV Immature Gran % (Auto) Neut % (Auto) Lymph % (Auto) [place] % (Auto) Eos % (Auto) Baso % (Auto) Lymph # (Auto) [place] # (Auto) Eos # (Auto) Baso # (Auto) Abs Immat Gran (auto) Absolute Neuts (auto) 6.6 Absolute Nucleated RBC Nucleated RBC % (auto) Neutrophils % (Manual) Band Neutrophils % Lymphocytes % (Manual) Atypical Lymphs % (Man) Monocytes % (Manual) Eosinophils % (Manual) Abs Neuts (Manual) Lymphocytes # (Manual) Atyp Lymphs # (Manual) Monocytes # (Manual) Eosinophils # (Manual) Smudge Cells Toxic Vacuolation Platelet Estimate Large Platelets Plt Morphology Comment RBC Morphology [place]indy Cells Hold Purple Top O2 Saturation ABG pH at Pt Temp ABG pCO2 at Pt Temp ABG pO2 at Pt Temp ABG HCO3 ABG Base Excess (Actual) VBG pH VBG pCO2 VBG pO2 VBG HCO3 VBG O2 Saturation VBG Base Excess Sodium 138 Potassium 4.7 Chloride 100 Carbon Dioxide 31 H Anion Gap 12 BUN 16 Creatinine 0.64 Estim Creat Clear Calc 104.7 Estimated GFR > 60 POC Glucose 353 H* 311 H Random Glucose 349 H Estimat Average Glucose Hemoglobin A1c % Osmolality Lactic Acid Calcium 9.4 Phosphorus 3.3 Magnesium 1.9 Total Bilirubin Direct Bilirubin AST ALT Alkaline Phosphatase Ammonia Troponin I High Sens C-Reactive Protein Total Protein Albumin 3.1 L Triglycerides Cholesterol LDL Cholesterol, Calc HDL Cholesterol Vitamin B12 TSH Urine Color Urine Appearance Urine pH Ur Specific [place] Urine Protein Urine Glucose (UA) Urine Ketones Urine Blood Urine Nitrite Ur Leukocyte Esterase Urine RBC Urine WBC Ur Squamous Epith Cells Urine Bacteria Hyaline Casts Urine Osmolality Ur Random Sodium Urine Opiates Screen Ur Buprenorphine Scrn Ur Oxycodone Screen Urine Methadone Screen Urine Fentanyl Screen Ur Barbiturates Screen Valproic Acid Ur Phencyclidine Scrn Clozapine Norclozapine Ur Amphetamines Screen U Benzodiazepines Scrn Urine Cocaine Screen U Marijuana (THC) Screen COVID-19 (KILEY) COVID-19 Clin Com Influenza Type A (PRINCESS) Influenza Type B (PRINCESS) Influenza A & B Note 02/28/25 02/28/25 03/01/25 16:09 20:58 07:36 WBC 7.9 RBC 4.05 L Hgb 12.7 L Hct 35.3 L MCV 87.2 MCH 31.4 MCHC 36.0 RDW 13.7 Plt Count 189 MPV 11.4 Immature Gran % (Auto) Neut % (Auto) Lymph % (Auto) [place] % (Auto) Eos % (Auto) Baso % (Auto) Lymph # (Auto) [place] # (Auto) Eos # (Auto) Baso # (Auto) Abs Immat Gran (auto) Absolute Neuts (auto) Absolute Nucleated RBC 0.000 Nucleated RBC % (auto) 0.0 Neutrophils % (Manual) Band Neutrophils % Lymphocytes % (Manual) Atypical Lymphs % (Man) Monocytes % (Manual) Eosinophils % (Manual) Abs Neuts (Manual) Lymphocytes # (Manual) Atyp Lymphs # (Manual) Monocytes # (Manual) Eosinophils # (Manual) Smudge Cells Toxic Vacuolation Platelet Estimate Large Platelets Plt Morphology Comment RBC Morphology Sindy Cells Hold Purple Top O2 Saturation ABG pH at Pt Temp ABG pCO2 at Pt Temp ABG pO2 at Pt Temp ABG HCO3 ABG Base Excess (Actual) VBG pH VBG pCO2 VBG pO2 VBG HCO3 VBG O2 Saturation VBG Base Excess Sodium 136 Potassium 4.6 Chloride 104 Carbon Dioxide 25 Anion Gap 12 BUN 17 H Creatinine 0.61 Estim Creat Clear Calc 109.8 Estimated GFR > 60 POC Glucose 161 H 265 H Random Glucose 344 H Estimat Average Glucose Hemoglobin A1c % Osmolality Lactic Acid Calcium 9.1 Phosphorus 3.4 Magnesium 1.9 Total Bilirubin Direct Bilirubin AST ALT Alkaline Phosphatase Ammonia Troponin I High Sens C-Reactive Protein Total Protein Albumin 2.9 L Triglycerides Cholesterol LDL Cholesterol, Calc HDL Cholesterol Vitamin B12 TSH Urine Color Urine Appearance Urine pH Ur Specific [place] Urine Protein Urine Glucose (UA) Urine Ketones Urine Blood Urine Nitrite Ur Leukocyte Esterase Urine RBC Urine WBC Ur Squamous Epith Cells Urine Bacteria Hyaline Casts Urine Osmolality Ur Random Sodium Urine Opiates Screen Ur Buprenorphine Scrn Ur Oxycodone Screen Urine Methadone Screen Urine Fentanyl Screen Ur Barbiturates Screen Valproic Acid Ur Phencyclidine Scrn Clozapine Norclozapine Ur Amphetamines Screen U Benzodiazepines Scrn Urine Cocaine Screen U Marijuana (THC) Screen COVID-19 (KILEY) COVID-19 Clin Com Influenza Type A (PRINCESS) Influenza Type B (PRINCESS) Influenza A & B Note 03/01/25 03/01/25 03/01/25 08:31 12:17 16:14 WBC RBC Hgb Hct MCV MCH MCHC RDW Plt Count MPV Immature Gran % (Auto) Neut % (Auto) Lymph % (Auto) [place] % (Auto) Eos % (Auto) Baso % (Auto) Lymph # (Auto) [place] # (Auto) Eos # (Auto) Baso # (Auto) Abs Immat Gran (auto) Absolute Neuts (auto) Absolute Nucleated RBC Nucleated RBC % (auto) Neutrophils % (Manual) Band Neutrophils % Lymphocytes % (Manual) Atypical Lymphs % (Man) Monocytes % (Manual) Eosinophils % (Manual) Abs Neuts (Manual) Lymphocytes # (Manual) Atyp Lymphs # (Manual) Monocytes # (Manual) Eosinophils # (Manual) Smudge Cells Toxic Vacuolation Platelet Estimate Large Platelets Plt Morphology Comment RBC Morphology Sindy Cells Hold Purple Top O2 Saturation ABG pH at Pt Temp ABG pCO2 at Pt Temp ABG pO2 at Pt Temp ABG HCO3 ABG Base Excess (Actual) VBG pH VBG pCO2 VBG pO2 VBG HCO3 VBG O2 Saturation VBG Base Excess Sodium Potassium Chloride Carbon Dioxide Anion Gap BUN Creatinine Estim Creat Clear Calc Estimated GFR POC Glucose 306 H 314 H 304 H Random Glucose Estimat Average Glucose Hemoglobin A1c % Osmolality Lactic Acid Calcium Phosphorus Magnesium Total Bilirubin Direct Bilirubin AST ALT Alkaline Phosphatase Ammonia Troponin I High Sens C-Reactive Protein Total Protein Albumin Triglycerides Cholesterol LDL Cholesterol, Calc HDL Cholesterol Vitamin B12 TSH Urine Color Urine Appearance Urine pH Ur Specific [place] Urine Protein Urine Glucose (UA) Urine Ketones Urine Blood Urine Nitrite Ur Leukocyte Esterase Urine RBC Urine WBC Ur Squamous Epith Cells Urine Bacteria Hyaline Casts Urine Osmolality Ur Random Sodium Urine Opiates Screen Ur Buprenorphine Scrn Ur Oxycodone Screen Urine Methadone Screen Urine Fentanyl Screen Ur Barbiturates Screen Valproic Acid Ur Phencyclidine Scrn Clozapine Norclozapine Ur Amphetamines Screen U Benzodiazepines Scrn Urine Cocaine Screen U Marijuana (THC) Screen COVID-19 (KILEY) COVID-19 Clin Com Influenza Type A (PRINCESS) Influenza Type B (PRINCESS) Influenza A & B Note 03/01/25 03/02/25 03/02/25 20:53 06:49 07:29 WBC RBC Hgb Hct MCV MCH MCHC RDW Plt Count MPV Immature Gran % (Auto) Neut % (Auto) Lymph % (Auto) [place] % (Auto) Eos % (Auto) Baso % (Auto) Lymph # (Auto) [place] # (Auto) Eos # (Auto) Baso # (Auto) Abs Immat Gran (auto) Absolute Neuts (auto) Absolute Nucleated RBC Nucleated RBC % (auto) Neutrophils % (Manual) Band Neutrophils % Lymphocytes % (Manual) Atypical Lymphs % (Man) Monocytes % (Manual) Eosinophils % (Manual) Abs Neuts (Manual) Lymphocytes # (Manual) Atyp Lymphs # (Manual) Monocytes # (Manual) Eosinophils # (Manual) Smudge Cells Toxic Vacuolation Platelet Estimate Large Platelets Plt Morphology Comment RBC Morphology [place] Cells Hold Purple Top SEE NOTE O2 Saturation ABG pH at Pt Temp ABG pCO2 at Pt Temp ABG pO2 at Pt Temp ABG HCO3 ABG Base Excess (Actual) VBG pH VBG pCO2 VBG pO2 VBG HCO3 VBG O2 Saturation VBG Base Excess Sodium 138 Potassium 5.0 Chloride 104 Carbon Dioxide 27 Anion Gap 12 BUN 18 H Creatinine 0.60 Estim Creat Clear Calc 111.6 Estimated GFR > 60 POC Glucose 242 H 307 H Random Glucose 329 H Estimat Average Glucose Hemoglobin A1c % Osmolality Lactic Acid Calcium 9.4 Phosphorus 3.5 Magnesium 1.9 Total Bilirubin Direct Bilirubin AST ALT Alkaline Phosphatase Ammonia Troponin I High Sens C-Reactive Protein Total Protein Albumin 3.1 L Triglycerides Cholesterol LDL Cholesterol, Calc HDL Cholesterol Vitamin B12 TSH Urine Color Urine Appearance Urine pH Ur Specific [place] Urine Protein Urine Glucose (UA) Urine Ketones Urine Blood Urine Nitrite Ur Leukocyte Esterase Urine RBC Urine WBC Ur Squamous Epith Cells Urine Bacteria Hyaline Casts Urine Osmolality Ur Random Sodium Urine Opiates Screen Ur Buprenorphine Scrn Ur Oxycodone Screen Urine Methadone Screen Urine Fentanyl Screen Ur Barbiturates Screen Valproic Acid Ur Phencyclidine Scrn Clozapine Norclozapine Ur Amphetamines Screen U Benzodiazepines Scrn Urine Cocaine Screen U Marijuana (THC) Screen COVID-19 (KILEY) COVID-19 Clin Com Influenza Type A (PRINCESS) Influenza Type B (PRINCESS) Influenza A & B Note 03/02/25 11:11 WBC RBC Hgb Hct MCV MCH MCHC RDW Plt Count MPV Immature Gran % (Auto) Neut % (Auto) Lymph % (Auto) [place] % (Auto) Eos % (Auto) Baso % (Auto) Lymph # (Auto) [place] # (Auto) Eos # (Auto) Baso # (Auto) Abs Immat Gran (auto) Absolute Neuts (auto) Absolute Nucleated RBC Nucleated RBC % (auto) Neutrophils % (Manual) Band Neutrophils % Lymphocytes % (Manual) Atypical Lymphs % (Man) Monocytes % (Manual) Eosinophils % (Manual) Abs Neuts (Manual) Lymphocytes # (Manual) Atyp Lymphs # (Manual) Monocytes # (Manual) Eosinophils # (Manual) Smudge Cells Toxic Vacuolation Platelet Estimate Large Platelets Plt Morphology Comment RBC Morphology [place] Cells Hold Purple Top O2 Saturation ABG pH at Pt Temp ABG pCO2 at Pt Temp ABG pO2 at Pt Temp ABG HCO3 ABG Base Excess (Actual) VBG pH VBG pCO2 VBG pO2 VBG HCO3 VBG O2 Saturation VBG Base Excess Sodium Potassium Chloride Carbon Dioxide Anion Gap BUN Creatinine Estim Creat Clear Calc Estimated GFR POC Glucose 277 H Random Glucose Estimat Average Glucose Hemoglobin A1c % Osmolality Lactic Acid Calcium Phosphorus Magnesium Total Bilirubin Direct Bilirubin AST ALT Alkaline Phosphatase Ammonia Troponin I High Sens C-Reactive Protein Total Protein Albumin Triglycerides Cholesterol LDL Cholesterol, Calc HDL Cholesterol Vitamin B12 TSH Urine Color Urine Appearance Urine pH Ur Specific [place] Urine Protein Urine Glucose (UA) Urine Ketones Urine Blood Urine Nitrite Ur Leukocyte Esterase Urine RBC Urine WBC Ur Squamous Epith Cells Urine Bacteria Hyaline Casts Urine Osmolality Ur Random Sodium Urine Opiates Screen Ur Buprenorphine Scrn Ur Oxycodone Screen Urine Methadone Screen Urine Fentanyl Screen Ur Barbiturates Screen Valproic Acid Ur Phencyclidine Scrn Clozapine Norclozapine Ur Amphetamines Screen U Benzodiazepines Scrn Urine Cocaine Screen U Marijuana (THC) Screen COVID-19 (KILEY) COVID-19 Clin Com Influenza Type A (PRINCESS) Influenza Type B (PRINCESS) Influenza A & B Note Airway Mallampati Class: III TM Dist: >3cm Neck ROM: Limited Heart: rrr Lungs: cta Assessment and Plan Assessment Anesthesia Assessment: Anesthesia Plan Discussed and Chart Reviewed Final Anesthetic Review Family History of Problems with Anesthesia: No History of Problems with Anesthesia: No NPO: Yes ASA Class: III Final Preanesthetic Review: No Changes in Pt Med Stat, Meds/Allgs Chart Reviewed, Consent Obtained/Reviewed and Anes Risks/Benef Reviewed Patient Risk: Intermediate Procedure Risk: Low Anesthetic Plan Anesthetic Plan: MAC: and Agree w/ Assess. and Plan Disposition: Standard PACU
--- NOTE | 2025-03-02 15:08 | W.PM.OPN ---
Operative Note Operative Note Date of Service: 03/02/25 Narrative: Preop diagnosis: Schizoaffective disorder, we feel her through thrive Postop diagnosis: The same Procedure: PEG tube placement Surgeon: Randall Arana MD field administrative assistant: FAYE Colmenares The patient is a 69-year-old male with Alzheimer's dementia, schizoaffective disorder with psychosis, admitted for aspiration pneumonia. He also had been refusing oral intake and had been has to put in a PEG tube. Consent was provided by his legal guardian. The legal guardian understood the technique of the planned procedure as well as the risks, benefits, and alternatives The patient is brought to the operating room and placed supine on the table under monitored anesthesia care. A bite block was in position. A surgical time-out was done I then proceeded to insert the gastroscope through the bite block into the oropharynx. The vocal cords were visualized. The esophageal slit was seen posterior to this. The esophageal slit was intubated and the scope was advanced through the entire length of the esophagus in the stomach. Stomach rugae was identified. We insufflated the stomach and transillumination was easily seen in the epigastric area. This area was prepped and draped. Lidocaine 1% was used for local anesthesia. A small stab incision was made with a blade 11. A large bore needle with the catheter was inserted through this all the way into the stomach lumen with direct visualization using the endoscope. The needle was removed leaving the plastic catheter in place. The guidewire was threaded through the catheter and was grasped with a snare. We proceeded to pull this guidewire out all the way through the esophagus and out through the oral cavity. The guidewire was looped onto the PEG tube. The guidewire was then pulled from the abdominal wall along with the peg tube all the way into the esophagus and back into the stomach until the inner bolster felt snug. We examined the stomach endoscopically and the internal bolster appeared to be in good position. There was no bleeding. We applied the external bolster snug on the skin. The binder was placed as well. Procedure was then completed. The patient tolerated procedure well. There were no immediate complications. The patient was transferred to the recovery room with stable vital signs.
[2025-03-02 16:35] LABS: Glucose, Whole Blood 182 mg/dL (60-115)
[2025-03-02] MEDS: diazePAM 10 MG/2 ML CARTRIDGE 3 MG IVPUSH ×2 (16:42→21:56)
[2025-03-02] MEDS: 0.9 % Sodium Chloride Flush 3 ML SYRINGE IVFLUSH ×2 (16:44→21:34)
[2025-03-02 20:51] LABS: Glucose, Whole Blood 162 mg/dL (60-115)
[2025-03-02] MEDS: Parenteral Nutrition 1,920 ML 80 ML IV (21:33)
[2025-03-03 00:27] VITALS: BP 131/60; PULSE 90; RESP 18; TEMP 36.7; O2SAT 93
[2025-03-03] MEDS: Lactated Ringers 1,000 ML 80 ML IVCONT ×2 (02:00→14:53)
[2025-03-03 03:33] VITALS: BP 135/65; PULSE 81; RESP 18; TEMP 36.8; O2SAT 98
[2025-03-03 06:56] LABS: Albumin Level 2.8 g/dL (3.5-5.0); Anion Gap 10 (12-20); Blood Urea Nitrogen 15 mg/dL (9-16); Calcium 8.8 mg/dL (8.4-10.2); Carbon Dioxide 27 mmol/L (22-29); Chloride 105 mmol/L (96-108); Creatinine Clr Calc Pharmacy 117.5; Estimated Glomerular Filt Rate > 60; Magnesium 1.7 mg/dL (1.6-2.6); Potassium 4.3 mmol/L (3.3-5.1); Sodium 138 mmol/L (135-145)
[2025-03-03 07:48] LABS: Glucose, Whole Blood 313 mg/dL (60-115)
[2025-03-03 08:00] VITALS: BP 133/56; PULSE 70; RESP 18; TEMP 36.2; O2SAT 98
--- NOTE | 2025-03-03 08:03 | PC.NURSE ---
LR paused due to L arm being swollen red and warm. Pt has access on R side with PPN running. MD was contacted about concern over L arm, awaiting order for doppler at this time.
--- NOTE | 2025-03-03 08:14 | P.PNGS_ITS ---
Subjective Subjective Date of Service: 03/03/25 <Adrian Colmenares PA-C - Last Filed: 03/03/25 08:19> 03/03/25 <Randall Arana MD - Last Filed: 03/03/25 15:21> Interval history: resting comfortably. Not in obvious pain. <Adrian Colmenares PA-C - Last Filed: 03/03/25 08:19> Physical Exam 2 Vital Signs: Vital Signs: Last Vital Signs Temp 97.2 F 03/03/25 08:00 Pulse 70 03/03/25 08:00 Resp 18 03/03/25 08:00 BP 133/56 L 03/03/25 08:00 Pulse Ox 98 03/03/25 08:00 O2 Del Method Room Air 03/03/25 08:00 O2 Flow Rate 0 03/02/25 15:49 BMI result Body Mass Index 23.3 <MARY Mccray Last Filed: 03/03/25 08:19> Const: General: comfortable and no acute distress <Adrian Colmenares PA-C - Last Filed: 03/03/25 08:19> Resp: Effort & Inspection: normal respiratory effort and able to speak in complete sentences <Adrian Colmenares PA-C - Last Filed: 03/03/25 08:19> GI: Other: PEG tube in place, small amounts of bile in tube. Bolster tight to abdominal wall. abd binder in place <Adrian Colmenares PA-C - Last Filed: 03/03/25 08:19> Inspection: No distended <Adrian Colmenares PA-C - Last Filed: 03/03/25 08:19> Palpation (GI): Soft to palpation and nontender <Adrian Colmenares PA-C - Last Filed: 03/03/25 08:19> Objective Data Active Medications Acetaminophen (Acetaminophen 325 Mg Tablet) 650 mg PO Q6H PRN PRN Reason: Headache/Pain, Scale 1-10 Al Hydroxide/Mg Hydroxide (Magnesium Hydrox/Alum Hydrox 30 Ml Oral.Susp) 30 ml PO Q6H PRN PRN Reason: Heartburn/Nausea Calcium Carbonate (Calcium Carbonate 750 Mg Tab.Chew) 750 mg PO Q4H PRN PRN Reason: Heartburn Clozapine (Clozapine 25 Mg Tablet) 50 mg PO TID [facility] Last Admin: 03/02/25 22:38 Dose: Not Given Documented By: PAPITO Non-Admin Reason: pt NPO, failed bedside swallow eval Dextrose (Dextrose 50 % 25 Gm/50 Ml Syringe) 25 gm IVPUSH Q15M PRN; Protocol PRN Reason: per Hypoglycemia Standing Ord. Diazepam (Diazepam 10 Mg/2 Ml Cartridge) 3 mg IVPUSH TID NATE Last Admin: 03/02/25 21:56 Dose: 3 mg Documented By: PAPITO Docusate Sodium (Docusate Sodium 100 Mg Capsule) 100 mg PO BID [facility] Last Admin: 03/02/25 22:38 Dose: Not Given Documented By: PAPITO Non-Admin Reason: pt NPO, failed bedside swallow eval Enoxaparin Sodium (Enoxaparin Sodium 40 Mg/0.4 Ml Syringe) 40 mg SUBCUT Q24H [facility] Last Admin: 03/02/25 09:44 Dose: 40 mg Documented By: OSCAR Fluoxetine HCl (Fluoxetine Hcl 20 Mg Capsule) 40 mg PO BEDTIME NATE On Hold: 02/22/25 14:23 Last Admin: 02/21/25 22:23 Dose: Not Given Documented By: PAPITO Non-Admin Reason: pt refused Glucagon (Glucagon Hcl 1 Mg Vial) 1 mg IM Q20M PRN PRN Reason: low BG Glucose (Glucose Gel 15 Gm Gel..Gram.) 15 gm PO Q15M PRN; Protocol PRN Reason: per Hypoglycemia Standing Ord. Hydralazine HCl (Hydralazine Hcl 20 Mg/Ml Vial) 5 mg IVPUSH Q6H PRN; Protocol PRN Reason: htn Last Admin: 02/23/25 17:30 Dose: 5 mg Documented By: JAYME Valproic Acid 500 mg/ Dextrose 55 mls @ 52.5 mls/hr IV Q12H NATE Last Infusion: 03/02/25 22:40 Dose: Infused Documented By: PAPITO Nutrition (Parenteral) (Parenteral Nutrition) 1,920 mls @ 80 mls/hr IV .Q24H NATE; Protocol Stop: 03/03/25 20:59 Last Admin: 03/02/25 21:33 Dose: 80 mls/hr Documented By: PAPITO Lactated Ringer's (Lr) 1,000 mls @ 80 mls/hr IVCONT .[id number] [facility] Last Infusion: 03/03/25 08:05 Dose: 0 mls/hr Documented By: SRINIVASA Nutrition (Parenteral) (Parenteral Nutrition) 1,920 mls @ 80 mls/hr IV .Q24H [facility]; Protocol Stop: 03/04/25 20:59 Insulin Glargine (Insulin Glargine,Hum.Rec.Anlog 100 Unit/Ml 10 Ml Vial) 24 unit SUBCUT DAILY [facility] On Hold: 02/18/25 20:34 Last Admin: 02/18/25 09:21 Dose: Not Given Documented By: SRINIVASA Non-Admin Reason: not eating Insulin Human Lispro (Insulin Lispro 100 Unit/Ml 3 Ml Vial) 0 unit SUBCUT QIDACHS [facility]; Protocol Last Admin: 03/02/25 21:56 Dose: 2 unit Documented By: PAPITO Magnesium Hydroxide (Milk Of Magnesia 30 Ml Oral.Susp) 30 ml PO DAILY PRN PRN Reason: Constipation Melatonin (Melatonin 3 Mg Tablet) 6 mg PO BEDTIME PRN PRN Reason: Insomnia Metoprolol Tartrate (Metoprolol Tartrate 12.5 Mg Halftab) 12.5 mg PO BID [facility]; Protocol Last Admin: 03/02/25 22:38 Dose: Not Given Documented By: PAPITO Non-Admin Reason: pt NPO, failed bedside swallow eval Morphine Sulfate (Morphine Sulfate 2 Mg/Ml Cartridge) 2 mg IVPUSH Q6H PRN; Protocol PRN Reason: Pain, Severe (Pain Scale 7-10) Naloxone HCl (Naloxone Hcl 0.4 Mg/Ml Vial) 0.04 mg IVPUSH Q5M PRN PRN Reason: Excessive sedation or RR < 8 Omeprazole (Omeprazole 20 Mg Capsule.Dr) 20 mg PO DAILY@0630 [facility] Last Admin: 03/03/25 07:49 Dose: Not Given Documented By: PAPITO Non-Admin Reason: pt NPO, failed bedside swallow eval Perphenazine (Perphenazine 2 Mg Tablet) 2 mg PO BID [facility] Last Admin: 03/02/25 22:39 Dose: Not Given Documented By: PAPITO Non-Admin Reason: pt NPO, failed bedside swallow eval Perphenazine (Perphenazine 4 Mg Tablet) 4 mg PO BID [facility] Last Admin: 03/02/25 22:39 Dose: Not Given Documented By: PAPITO Non-Admin Reason: pt NPO, failed bedside swallow eval Pharmacy Consult (Consult Rx Parenteral Nutrition Ordering) 1 each [place] DAILY PRN PRN Reason: Consult order Senna (Sennosides 8.6 Mg Tablet) 8.6 mg PO DAILY [facility] Last Admin: 03/02/25 08:49 Dose: Not Given Documented By: OSCAR Non-Admin Reason: unable to administer po safely at this time Sodium Biphosphate/Sodium Phosphate (Sodium Phosphate,Dickson-Dibasic 133 Ml Enema) 133 ml [place] DAILY PRN PRN Reason: Constipation Sodium Chloride (0.9 % Sodium Chloride Flush 3 Ml Syringe) 3 ml IVFLUSH QSHIFT [facility] Last Admin: 03/02/25 21:34 Dose: 3 ml Documented By: PAPITO Trazodone HCl (Trazodone Hcl 50 Mg Tablet) 50 mg PO BEDTIME MRX1 PRN PRN Reason: Insomnia Last Admin: 02/25/25 21:39 Dose: 50 mg Documented By: PAPITO <Adrian Colmenares PA-C - Last Filed: 03/03/25 08:19> Labs CBC & Chem 7: 03/01/25 07:36 03/03/25 06:13 <Adrian Colmenares PA-C - Last Filed: 03/03/25 08:19> Labs: Laboratory Results - last 24 hr 03/02/25 03/02/25 03/02/25 11:11 16:26 20:47 Anion Gap Estim Creat Clear Calc Estimated GFR POC Glucose 277 H 182 H 162 H Random Glucose Calcium Phosphorus Magnesium Albumin 03/03/25 03/03/25 06:13 07:30 Anion Gap 10 L Estim Creat Clear Calc 117.5 Estimated GFR > 60 POC Glucose 313 H Random Glucose 316 H Calcium 8.8 D Phosphorus 3.3 Magnesium 1.7 Albumin 2.8 L <Adrian Colmenares PA-C - Last Filed: 03/03/25 08:19> Procedures Date of Service Date of Service: 03/03/25 <Adrian Colmenares PA-C - Last Filed: 03/03/25 08:19> 03/03/25 <Randall Arana MD - Last Filed: 03/03/25 15:21> Progress Note: A&P Assessment and plan (1) Psychosis: Status: Acute <Adrian Colmenares PA-C - Last Filed: 03/03/25 08:19> Assessment and Plan: Appears comfortable Abdomen is soft and benign Peg tube in place Keep external bolster snug on the skin Okay to start low-dose tube feeds today Seen and examined independently <Randall Arana MD - Last Filed: 03/03/25 15:21> (2) Schizoaffective disorder: Status: Acute <Adrian Colmenares PA-C - Last Filed: 03/03/25 08:19> Assessment and Plan: 69 year old male POD 1 s/p peg tube placement. abdomen is soft and benign, tub remains in correct place. small amounts of bile in the tube. Okay to start feeding through tub. General surgery will sign off, please reconsult as needed. <Adrian Colmenares PA-C - Last Filed: 03/03/25 08:19> Time Spent With Patient Time: Total time managing care of this patient today ____ minutes. <Adrian Colmenares PA-C - Last Filed: 03/03/25 08:19> Quality Stroke Does the patient have a stroke diagnosis?: No <Adrian Colmenares PA-C - Last Filed: 03/03/25 08:19> VTE Prior VTE?: No <Adrian Colmenares PA-C - Last Filed: 03/03/25 08:19> VTE Risk Level:: Medical - moderate - high <Adrian Colmenares PA-C - Last Filed: 03/03/25 08:19> VTE Device Contraindication: Treatment Not Indicated <Adrian Colmenares PA-C - Last Filed: 03/03/25 08:19> VTE Drug Contraindication: N/A - Med Ordered <Adrian Colmenares PA-C - Last Filed: 03/03/25 08:19>
[2025-03-03] MEDS: Valproic Acid (as Sodium Salt) 500 MG in Dextrose 5 % 50 ML 52.5 MG IV ×2 (08:30→21:12)
[2025-03-03] MEDS: 0.9 % Sodium Chloride Flush 3 ML SYRINGE IVFLUSH ×2 (08:31→21:15)
[2025-03-03] MEDS: diazePAM 10 MG/2 ML CARTRIDGE 3 MG IVPUSH ×2 (08:31→15:09)
--- NOTE | 2025-03-03 09:46 | HO.PM.IMPN ---
Subjective Subjective Date of Service: 03/03/25 Review of Systems Review of Systems: Yes Unobtainable due to mental condition Physical Exam Vital Signs: Vital Signs: Last Vital Signs Temp 97.2 F 03/03/25 08:00 Pulse 70 03/03/25 08:00 Resp 18 03/03/25 08:00 BP 133/56 L 03/03/25 08:00 Pulse Ox 98 03/03/25 08:00 O2 Del Method Room Air 03/03/25 08:00 O2 Flow Rate 0 03/02/25 15:49 BMI result Body Mass Index 23.3 Const: General: comfortable and no acute distress Resp: Effort & Inspection: normal respiratory effort and able to speak in complete sentences GI: Other: PEG tube in place, small amounts of bile in tube. Bolster tight to abdominal wall. abd binder in place Inspection: No distended Palpation (GI): Soft to palpation and nontender Objective Data Active Medications Acetaminophen (Acetaminophen 325 Mg Tablet) 650 mg PO Q6H PRN PRN Reason: Headache/Pain, Scale 1-10 Al Hydroxide/Mg Hydroxide (Magnesium Hydrox/Alum Hydrox 30 Ml Oral.Susp) 30 ml PO Q6H PRN PRN Reason: Heartburn/Nausea Calcium Carbonate (Calcium Carbonate 750 Mg Tab.Chew) 750 mg PO Q4H PRN PRN Reason: Heartburn Clozapine (Clozapine 25 Mg Tablet) 50 mg PO TID [facility] Last Admin: 03/03/25 09:13 Dose: Not Given Documented By: SRINIVASA Non-Admin Reason: NPO Dextrose (Dextrose 50 % 25 Gm/50 Ml Syringe) 25 gm IVPUSH Q15M PRN; Protocol PRN Reason: per Hypoglycemia Standing Ord. Diazepam (Diazepam 10 Mg/2 Ml Cartridge) 3 mg IVPUSH TID [facility] Last Admin: 03/03/25 08:31 Dose: 3 mg Documented By: SRINIVASA Docusate Sodium (Docusate Sodium 100 Mg Capsule) 100 mg PO BID [facility] Last Admin: 03/03/25 09:13 Dose: Not Given Documented By: SRINIVASA Non-Admin Reason: NPO Enoxaparin Sodium (Enoxaparin Sodium 40 Mg/0.4 Ml Syringe) 40 mg SUBCUT Q24H [facility] Last Admin: 03/03/25 08:31 Dose: 40 mg Documented By: SRINIVASA Fluoxetine HCl (Fluoxetine Hcl 20 Mg Capsule) 40 mg PO BEDTIME NATE On Hold: 02/22/25 14:23 Last Admin: 02/21/25 22:23 Dose: Not Given Documented By: PAPITO Non-Admin Reason: pt refused Glucagon (Glucagon Hcl 1 Mg Vial) 1 mg IM Q20M PRN PRN Reason: low BG Glucose (Glucose Gel 15 Gm Gel..Gram.) 15 gm PO Q15M PRN; Protocol PRN Reason: per Hypoglycemia Standing Ord. Hydralazine HCl (Hydralazine Hcl 20 Mg/Ml Vial) 5 mg IVPUSH Q6H PRN; Protocol PRN Reason: htn Last Admin: 02/23/25 17:30 Dose: 5 mg Documented By: JAYME Valproic Acid 500 mg/ Dextrose 55 mls @ 52.5 mls/hr IV Q12H NATE Last Admin: 03/03/25 08:30 Dose: 52.5 mls/hr Documented By: SRINIVASA Lactated Ringer's (Lr) 1,000 mls @ 80 mls/hr IVCONT .[id number] [facility] Last Infusion: 03/03/25 08:05 Dose: 0 mls/hr Documented By: SRINIVASA Insulin Glargine (Insulin Glargine,Hum.Rec.Anlog 100 Unit/Ml 10 Ml Vial) 24 unit SUBCUT DAILY NATE On Hold: 02/18/25 20:34 Last Admin: 02/18/25 09:21 Dose: Not Given Documented By: SRINIVASA Non-Admin Reason: not eating Insulin Human Lispro (Insulin Lispro 100 Unit/Ml 3 Ml Vial) 0 unit SUBCUT QIDACHS [facility]; Protocol Last Admin: 03/03/25 08:31 Dose: 8 unit Documented By: SRINIVASA Magnesium Hydroxide (Milk Of Magnesia 30 Ml Oral.Susp) 30 ml PO DAILY PRN PRN Reason: Constipation Melatonin (Melatonin 3 Mg Tablet) 6 mg PO BEDTIME PRN PRN Reason: Insomnia Metoprolol Tartrate (Metoprolol Tartrate 12.5 Mg Halftab) 12.5 mg PO BID NATE; Protocol Last Admin: 03/03/25 09:14 Dose: Not Given Documented By: SRINIVASA Non-Admin Reason: NPO Morphine Sulfate (Morphine Sulfate 2 Mg/Ml Cartridge) 2 mg IVPUSH Q6H PRN; Protocol PRN Reason: Pain, Severe (Pain Scale 7-10) Naloxone HCl (Naloxone Hcl 0.4 Mg/Ml Vial) 0.04 mg IVPUSH Q5M PRN PRN Reason: Excessive sedation or RR < 8 Omeprazole (Omeprazole 20 Mg Capsule.Dr) 20 mg PO DAILY@0630 [facility] Last Admin: 03/03/25 07:49 Dose: Not Given Documented By: PAPITO Non-Admin Reason: pt NPO, failed bedside swallow eval Perphenazine (Perphenazine 2 Mg Tablet) 2 mg PO BID [facility] Last Admin: 03/03/25 09:14 Dose: Not Given Documented By: SRINIVASA Non-Admin Reason: No Access Perphenazine (Perphenazine 4 Mg Tablet) 4 mg PO BID [facility] Last Admin: 03/03/25 09:14 Dose: Not Given Documented By: SRINIVASA Non-Admin Reason: NPO Pharmacy Consult (Consult Rx Parenteral Nutrition Ordering) 1 each MISCELLANE DAILY PRN PRN Reason: Consult order Senna (Sennosides 8.6 Mg Tablet) 8.6 mg PO DAILY [facility] Last Admin: 03/03/25 09:14 Dose: Not Given Documented By: SRINIVASA Non-Admin Reason: NPO Sodium Biphosphate/Sodium Phosphate (Sodium Phosphate,[place]-Dibasic 133 Ml Enema) 133 ml [place] DAILY PRN PRN Reason: Constipation Sodium Chloride (0.9 % Sodium Chloride Flush 3 Ml Syringe) 3 ml IVFLUSH QSHIFT [facility] Last Admin: 03/03/25 08:31 Dose: 3 ml Documented By: SRINIVASA Trazodone HCl (Trazodone Hcl 50 Mg Tablet) 50 mg PO BEDTIME MRX1 PRN PRN Reason: Insomnia Last Admin: 02/25/25 21:39 Dose: 50 mg Documented By: PAPITO Labs 03/01/25 07:36 03/03/25 06:13 Labs: Laboratory Results - last 24 hr 03/02/25 03/02/25 03/02/25 11:11 16:26 20:47 Anion Gap Estim Creat Clear Calc Estimated GFR POC Glucose 277 H 182 H 162 H Random Glucose Calcium Phosphorus Magnesium Albumin 03/03/25 03/03/25 06:13 07:30 Anion Gap 10 L Estim Creat Clear Calc 117.5 Estimated GFR > 60 POC Glucose 313 H Random Glucose 316 H Calcium 8.8 D Phosphorus 3.3 Magnesium 1.7 Albumin 2.8 L Assessment and Plan (1) Alzheimer's dementia: Status: Acute (2) Schizoaffective disorder: Status: Acute Plan 69M PMH schizoaffective disorder with psychotic features, major depressive disorder, diabetes, GERD presented to the ED on 02/14/2025 for multiple falls. became hypoxic on 02/16/25 acute toxic metabolic encephalopathy and Acute hypoxic respiratory failure due to aspiration pneumonia completed IV Unasyn . blood cultures neg , weaned O2 as tolerated, aspiration precautions, off oxygen, goal saturation 95% Seen by speech and swallow-purred /nector thick. but had very poor intake, so was using tpn underwent gtube 03/02/25, will start feeds today Schizoaffective disorder with psychotic features he intermittently refuses psych medsand vital/rx continue depakote and valium to iv. psych adjusted clozapine 50 mg tid moniter closely for sedation or respiratory compromise. psych/care team prior to discharge. Diabetes Basal bolus insulin htn hydralazine DVT prophylaxis with Lovenox Full Code reason for continued hospitalization:starting tube feeds Quality Stroke Does the patient have a stroke diagnosis?: No VTE Prior VTE?: No VTE Risk Level:: Medical - moderate - high VTE Device Contraindication: Treatment Not Indicated VTE Drug Contraindication: N/A - Med Ordered
--- NOTE | 2025-03-03 09:56 | HO.POSTANES ---
Post Anesthesia Evaluation Post Anesthesia Evaluation Date of Service: 03/03/25 Vital Signs: Vital Signs Temp Pulse Resp BP Pulse Ox O2 Del Method 03/03/25 08:00 97.2 F 70 18 133/56 L 98 Room Air 03/03/25 03:33 98.2 F 81 18 135/65 98 Room Air 03/03/25 00:27 98.1 F 90 18 131/60 93 Room Air Anesthesia: Monitored Mental Status: Sedated (sleepy, baseline per RN Mikie) Pain Control: Satisfactory Nausea/Vomiting: None Hydration: Adequate Anesthesia-Related Issues: No Anes. Related Issues
--- NOTE | 2025-03-03 10:34 | MHC.CLN ---
F/U PT RECEIVED PPN AT MAX GOAL RATE 80ML/HR WITH 91G LIPIDS PROVIDED 1889 TOTAL KCALS (28KCALS/KG), 192G DEXTROSE, 82G PROTEIN (1.2G/KG) PT WITH PEG TUBE PLACED-PER MD COHEN TO START FEEDING THROUGH TUBE 03/03 D/C PPN RECOMMEND TF GLUCERNA 1.2 AT MAX GOAL RATE 70ML/HR WITH 240ML FREE WATER FLUSHES Q 8 HRS TO PROVIDE 2016KCALS (30KCALS/KG), 101G PROTEIN (1.5G/KG), 2072ML TOTAL WATER (31ML/KG) START TF AT 20ML/HR AND INCREASE BY 10ML Q 4 HRS UNTIL MAX GOAL IS ACHIEVED MONITOR TOLERANCE AND LYTES
[2025-03-03 10:39] VITALS: BMI 23.3
[2025-03-03 11:40] LABS: Glucose, Whole Blood 223 mg/dL (60-115)
[2025-03-03 15:28] VITALS: BP 129/61; PULSE 77; RESP 18; TEMP 36.3; O2SAT 97
--- NOTE | 2025-03-03 16:20 | HO.WOUND ---
Wound Consult: follow up 69yr old? admitted to [facility] [place] on 02/16/25 18:06- See progress notes and H&P for detailed history.? Patient skin assessed during P&I Data collection 02/20/25 and noted for Right heel redness - Stage 1 Pressure Injury. ? Follow up today No new topical recommendations needed at this time. Right heel 02/20/25 Right heel 02/23/25 Right Heel 03/03/25 Etiology: ?? Stage 1 Pressure Injury - appears to be healing Measurements: 1.2cm x 0.2cm x 0cm Wound Bed: red pink nonblanchable tissue Drainage / Odor: None Edges: ? attached Coco wound: pink blanchable tissue dry callused noted ? No Induration, Fluctuance or Warmth noted Goals of Treatment: ? Off load pressure - skin prep applied along with foam dressing Left heel intact and preventative foam applied. Elevated off of bed surface with pillows. Recommendations: 1. Turn and Reposition every 2 hours and as needed for patient comfort.? Use pillows or wedges to support off loading positions. 2. Off Load all bony prominences with use of pillows and heel boots if needed.? Apply Preventative foams where needed. ? 3. Monitor for incontinence and moisture control, use barrier creams when needed for prevention and treatment. 4. Provide adequate and supplemental nutrition.? 5. Order or Continue low air loss mattress. 6. When applicable maintain blood glucose levels per Providers order. Bilateral Heels? - Elevate heels off of bed surface with pillows.? Float heels off of bed sruface with pillows.? Apply skin prep allow to dry.? Apply heel foam dressings, peel back and assess Q shift and change every 3 days and PRN. Re-consult wound care Nurse for wound deterioration or wound changes.
[2025-03-03 16:26] LABS: Glucose, Whole Blood 114 mg/dL (60-115)
--- NOTE | 2025-03-03 18:45 | PC.NURSE ---
tube feedings just started, delayed due to food not being delivered
[2025-03-03 19:40] VITALS: BP 125/61; PULSE 72; RESP 17; TEMP 36.4; O2SAT 98
[2025-03-03] MEDS: Metoprolol Tartrate 12.5 MG HALFTAB PO (21:14)
[2025-03-03 21:32] LABS: Glucose, Whole Blood 107 mg/dL (60-115)
[2025-03-04 00:02] VITALS: BP 101/53; PULSE 61; RESP 18; TEMP 36.3; O2SAT 96
[2025-03-04] MEDS: Lactated Ringers 1,000 ML 80 ML IVCONT (03:18)
[2025-03-04 03:23] VITALS: BP 106/53; PULSE 64; RESP 18; TEMP 36.6; O2SAT 95
[2025-03-04 07:08] LABS: Glucose, Whole Blood 183 mg/dL (60-115)
[2025-03-04 07:10] VITALS: BP 118/60; PULSE 71; RESP 14; TEMP 37; O2SAT 97
[2025-03-04 07:30] LABS: Hematocrit 35.3 % (42.0-52.0); Hemoglobin 12.1 g/dl (14.0-18.0); Mean Corpuscular HGB Conc 34.3 g/dl (31.0-36.0); Mean Corpuscular Hemoglobin 30.3 pg (27.0-33.0); Mean Corpuscular Volume 88.5 fL (80.0-98.0); NRBC Abs Auto 0.000 X10*3/uL (0.0-0.012); NRBC Pct Auto 0.0 /100WBC (0.0-0.2); Platelet Count 163 X10*3/uL (160-400); Red Blood Count 3.99 X10*6/uL (4.60-5.80); White Blood Count 5.7 X10*3/uL (4.8-10.8)
[2025-03-04 07:39] LABS: Albumin Level 2.6 g/dL (3.5-5.0); Anion Gap 11 (12-20); Blood Urea Nitrogen 14 mg/dL (9-16); Calcium 8.6 mg/dL (8.4-10.2); Carbon Dioxide 27 mmol/L (22-29); Chloride 109 mmol/L (96-108); Creatinine Clr Calc Pharmacy 119.6; Estimated Glomerular Filt Rate > 60; Magnesium 1.6 mg/dL (1.6-2.6); Potassium 4.1 mmol/L (3.3-5.1); Sodium 143 mmol/L (135-145)
[2025-03-04] MEDS: Metoprolol Tartrate 12.5 MG HALFTAB PO ×2 (09:18→22:30)
[2025-03-04] MEDS: diazePAM 10 MG/2 ML CARTRIDGE 3 MG IVPUSH ×3 (09:19→22:11)
[2025-03-04] MEDS: Valproic Acid (as Sodium Salt) 500 MG in Dextrose 5 % 50 ML 52.5 MG IV ×2 (09:25→22:20)
[2025-03-04] MEDS: 0.9 % Sodium Chloride Flush 3 ML SYRINGE IVFLUSH ×2 (09:25→17:25)
[2025-03-04 11:27] LABS: Glucose, Whole Blood 191 mg/dL (60-115)
--- NOTE | 2025-03-04 11:50 | MHC.CLN ---
F/U PT WITH PEG TUBE PLACED-PER OKAY TO START FEEDING THROUGH TUBE 03/03 REVIEWED LABS PT IS TOLERATING WITH LOW RESIDUALS PER NSG RECEIVING TF GLUCERNA 1.2 AT MAX GOAL RATE 70ML/HR WITH 240ML FREE WATER FLUSHES Q 8 HRS TO PROVIDE 2016KCALS (30KCALS/KG), 101G PROTEIN (1.5G/KG), 2072ML TOTAL WATER (31ML/KG) MONITOR TOLERANCE AND LYTES
[2025-03-04 12:00] VITALS: BP 108/54; PULSE 64; RESP 14; TEMP 36.8; O2SAT 95
[2025-03-04 15:30] VITALS: BP 113/54; PULSE 72; RESP 16; TEMP 36.8; O2SAT 95
--- NOTE | 2025-03-04 16:01 | HO.PM.IMPN ---
Subjective Subjective Date of Service: 03/04/25 Interval History: No acute issues overnight. Tolerating G-tube feelings Review of Systems Unable to obtain Physical Exam Vital Signs: Vital Signs: Last Vital Signs Temp 98.2 F 03/04/25 15:30 Pulse 72 03/04/25 15:30 Resp 16 03/04/25 15:30 BP 113/54 L 03/04/25 15:30 Pulse Ox 95 03/04/25 15:30 O2 Del Method Room Air 03/04/25 15:30 O2 Flow Rate 0 03/02/25 15:49 BMI result Body Mass Index 23.3 Const: Other: Somnolent; nonverbal Resp: Other: Clear to auscultation bilaterally no rales rhonchi or wheezes Cardio: Other: No S4; positive S1-S2; no S3 murmurs rubs or gallops GI: Other: Soft nontender nondistended normoactive bowel sounds Extrem: Other: No edema bilaterally Objective Data Active Medications Acetaminophen (Acetaminophen 325 Mg Tablet) 650 mg PO Q6H PRN PRN Reason: Headache/Pain, Scale 1-10 Al Hydroxide/Mg Hydroxide (Magnesium Hydrox/Alum Hydrox 30 Ml Oral.Susp) 30 ml PO Q6H PRN PRN Reason: Heartburn/Nausea Calcium Carbonate (Calcium Carbonate 750 Mg Tab.Chew) 750 mg PO Q4H PRN PRN Reason: Heartburn Clozapine (Clozapine 25 Mg Tablet) 50 mg PO TID [facility] Last Admin: 03/04/25 14:26 Dose: 50 mg Documented By: SANDRA Dextrose (Dextrose 50 % 25 Gm/50 Ml Syringe) 25 gm IVPUSH Q15M PRN; Protocol PRN Reason: per Hypoglycemia Standing Ord. Diazepam (Diazepam 10 Mg/2 Ml Cartridge) 3 mg IVPUSH TID [facility] Last Admin: 03/04/25 14:26 Dose: 3 mg Documented By: SANDRA Docusate Sodium (Docusate Sodium 100 Mg/10 Ml Liquid) 100 mg G-TUBE BID [facility] Last Admin: 03/04/25 09:19 Dose: 100 mg Documented By: SANDRA Enoxaparin Sodium (Enoxaparin Sodium 40 Mg/0.4 Ml Syringe) 40 mg SUBCUT Q24H [facility] Last Admin: 03/04/25 09:19 Dose: 40 mg Documented By: SANDRA Fluoxetine HCl (Fluoxetine Hcl 20 Mg Capsule) 40 mg PO BEDTIME NATE On Hold: 02/22/25 14:23 Last Admin: 02/21/25 22:23 Dose: Not Given Documented By: PAPITO Non-Admin Reason: pt refused Glucagon (Glucagon Hcl 1 Mg Vial) 1 mg IM Q20M PRN PRN Reason: low BG Glucose (Glucose Gel 15 Gm Gel..Gram.) 15 gm PO Q15M PRN; Protocol PRN Reason: per Hypoglycemia Standing Ord. Hydralazine HCl (Hydralazine Hcl 20 Mg/Ml Vial) 5 mg IVPUSH Q6H PRN; Protocol PRN Reason: htn Last Admin: 02/23/25 17:30 Dose: 5 mg Documented By: JAYME Valproic Acid 500 mg/ Dextrose 55 mls @ 52.5 mls/hr IV Q12H [facility] Last Infusion: 03/04/25 10:53 Dose: Infused Documented By: SANDRA Insulin Glargine (Insulin Glargine,Hum.Rec.Anlog 100 Unit/Ml 10 Ml Vial) 24 unit SUBCUT DAILY [facility] On Hold: 02/18/25 20:34 Last Admin: 02/18/25 09:21 Dose: Not Given Documented By: SRINIVASA Non-Admin Reason: not eating Insulin Human Lispro (Insulin Lispro 100 Unit/Ml 3 Ml Vial) 0 unit SUBCUT QIDACHS [facility]; Protocol Last Admin: 03/04/25 12:03 Dose: 2 unit Documented By: SANDRA Magnesium Hydroxide (Milk Of Magnesia 30 Ml Oral.Susp) 30 ml PO DAILY PRN PRN Reason: Constipation Melatonin (Melatonin 3 Mg Tablet) 6 mg PO BEDTIME PRN PRN Reason: Insomnia Metoprolol Tartrate (Metoprolol Tartrate 12.5 Mg Halftab) 12.5 mg PO BID NATE; Protocol Last Admin: 03/04/25 09:18 Dose: 12.5 mg Documented By: SANDRA Morphine Sulfate (Morphine Sulfate 2 Mg/Ml Cartridge) 2 mg IVPUSH Q6H PRN; Protocol PRN Reason: Pain, Severe (Pain Scale 7-10) Naloxone HCl (Naloxone Hcl 0.4 Mg/Ml Vial) 0.04 mg IVPUSH Q5M PRN PRN Reason: Excessive sedation or RR < 8 Omeprazole (Omeprazole 20 Mg Capsule.Dr) 20 mg PO DAILY@0630 [facility] Last Admin: 03/04/25 06:34 Dose: 20 mg Documented By: PAPITO Perphenazine (Perphenazine 2 Mg Tablet) 2 mg PO BID [facility] Last Admin: 03/04/25 09:18 Dose: 2 mg Documented By: SANDRA Perphenazine (Perphenazine 4 Mg Tablet) 4 mg PO BID [facility] Last Admin: 03/04/25 09:19 Dose: 4 mg Documented By: SANDRA Pharmacy Consult (Consult Rx Parenteral Nutrition Ordering) 1 each MISCELLANE DAILY PRN PRN Reason: Consult order Senna (Sennosides 8.6 Mg Tablet) 8.6 mg PO DAILY [facility] Last Admin: 03/04/25 09:19 Dose: 8.6 mg Documented By: SANDRA Sodium Biphosphate/Sodium Phosphate (Sodium Phosphate,[place]-Dibasic 133 Ml Enema) 133 ml [place] DAILY PRN PRN Reason: Constipation Sodium Chloride (0.9 % Sodium Chloride Flush 3 Ml Syringe) 3 ml IVFLUSH QSHIFT [facility] Last Admin: 03/04/25 09:25 Dose: 3 ml Documented By: SANDRA Trazodone HCl (Trazodone Hcl 50 Mg Tablet) 50 mg PO BEDTIME MRX1 PRN PRN Reason: Insomnia Last Admin: 03/03/25 23:01 Dose: 50 mg Documented By: PAPITO Labs 03/04/25 06:46 03/04/25 06:46 Labs: Laboratory Results - last 24 hr 03/03/25 03/03/25 03/04/25 16:18 21:16 06:46 MCV 88.5 MCH 30.3 MCHC 34.3 RDW 13.3 Plt Count 163 MPV 10.7 Absolute Nucleated RBC 0.000 Nucleated RBC % (auto) 0.0 Anion Gap 11 L Estim Creat Clear Calc 119.6 Estimated GFR > 60 POC Glucose 114 107 Random Glucose 173 H Calcium 8.6 Phosphorus 3.4 Magnesium 1.6 Albumin 2.6 L 03/04/25 03/04/25 06:57 11:18 MCV MCH MCHC RDW Plt Count MPV Absolute Nucleated RBC Nucleated RBC % (auto) Anion Gap Estim Creat Clear Calc Estimated GFR POC Glucose 183 H 191 H Random Glucose Calcium Phosphorus Magnesium Albumin Assessment and Plan (1) Pneumonia: Status: Acute (2) Alzheimer's dementia: Status: Acute Plan 69M PMH schizoaffective disorder with psychotic features, major depressive disorder, diabetes, GERD presented to the ED on 02/14/2025 for multiple falls. became hypoxic on 02/16/25 1.Acute toxic metabolic encephalopathy and Acute hypoxic respiratory failure due to aspiration pneumonia -completed IV Unasyn . blood cultures neg , weaned O2 as tolerated, aspiration precautions, off oxygen, goal saturation 95% -Seen by speech and swallow-purred /nector thick. but had very poor intake, so was using tpn -underwent gtube 03/02/25, will start feeds today 2.Schizoaffective disorder with psychotic features -depakote and valium IV -adjusted clozapine 50 mg tid -psych/care team prior to discharge. 3.Diabetes II -acceptable control on current therapies -lispro correctional scale -adjust as indicated Lovenox Full Code reason for continued hospitalization:starting tube feeds Quality Stroke Does the patient have a stroke diagnosis?: No VTE Prior VTE?: No VTE Risk Level:: Medical - moderate - high VTE Device Contraindication: Treatment Not Indicated VTE Drug Contraindication: N/A - Med Ordered
[2025-03-04 16:16] LABS: Glucose, Whole Blood 181 mg/dL (60-115)
[2025-03-04 19:38] VITALS: BP 126/58; PULSE 71; RESP 18; TEMP 36.7; O2SAT 97
[2025-03-04 20:41] LABS: Glucose, Whole Blood 203 mg/dL (60-115)
[2025-03-04 22:17] LABS: Glucose, Whole Blood 200 mg/dL (60-115)
[2025-03-05] MEDS: 0.9 % Sodium Chloride Flush 3 ML SYRINGE IVFLUSH ×3 (00:02→19:57)
[2025-03-05 04:00] VITALS: BP 114/53; PULSE 70; RESP 16; TEMP 36.4; O2SAT 94
[2025-03-05 07:23] LABS: Glucose, Whole Blood 203 mg/dL (60-115)
[2025-03-05 07:31] VITALS: BP 130/61; PULSE 72; RESP 18; TEMP 36.2; O2SAT 95
[2025-03-05 07:44] LABS: Albumin Level 2.7 g/dL (3.5-5.0); Anion Gap 11 (12-20); Blood Urea Nitrogen 18 mg/dL (9-16); Calcium 8.5 mg/dL (8.4-10.2); Carbon Dioxide 28 mmol/L (22-29); Chloride 105 mmol/L (96-108); Creatinine Clr Calc Pharmacy 108.0; Estimated Glomerular Filt Rate > 60; Magnesium 1.7 mg/dL (1.6-2.6); Potassium 4.3 mmol/L (3.3-5.1); Sodium 140 mmol/L (135-145)
[2025-03-05] MEDS: Metoprolol Tartrate 12.5 MG HALFTAB PO ×2 (07:51→22:12)
[2025-03-05] MEDS: Valproic Acid (as Sodium Salt) 500 MG in Dextrose 5 % 50 ML 52.5 MG IV ×2 (09:40→19:56)
[2025-03-05 11:18] LABS: Glucose, Whole Blood 194 mg/dL (60-115)
--- NOTE | 2025-03-05 14:36 | HO.PM.IMPN ---
Subjective Subjective Date of Service: 03/05/25 Interval History: Essentially no change overnight. Tolerating tube feeding Review of Systems Unable to obtain Physical Exam Vital Signs: Vital Signs: Last Vital Signs Temp 97.1 F 03/05/25 07:31 Pulse 72 03/05/25 07:31 Resp 18 03/05/25 07:31 BP 130/61 03/05/25 07:31 Pulse Ox 95 03/05/25 07:31 O2 Del Method Room Air 03/05/25 07:31 O2 Flow Rate 0 03/02/25 15:49 BMI result Body Mass Index 23.3 Const: Other: Somnolent; nonverbal Resp: Other: Clear to auscultation bilaterally no rales rhonchi or wheezes Cardio: Other: No S4; positive S1-S2; no S3 murmurs rubs or gallops GI: Other: Soft nontender nondistended normoactive bowel sounds Extrem: Other: No edema bilaterally Objective Data Active Medications Acetaminophen (Acetaminophen 325 Mg Tablet) 650 mg PO Q6H PRN PRN Reason: Headache/Pain, Scale 1-10 Al Hydroxide/Mg Hydroxide (Magnesium Hydrox/Alum Hydrox 30 Ml Oral.Susp) 30 ml PO Q6H PRN PRN Reason: Heartburn/Nausea Calcium Carbonate (Calcium Carbonate 750 Mg Tab.Chew) 750 mg PO Q4H PRN PRN Reason: Heartburn Clozapine (Clozapine 25 Mg Tablet) 50 mg PO TID [facility] Last Admin: 03/05/25 09:44 Dose: Not Given Documented By: GRACE Non-Admin Reason: Physician Held Med Dextrose (Dextrose 50 % 25 Gm/50 Ml Syringe) 25 gm IVPUSH Q15M PRN; Protocol PRN Reason: per Hypoglycemia Standing Ord. Diazepam (Diazepam 10 Mg/2 Ml Cartridge) 3 mg IVPUSH TID [facility] Last Admin: 03/05/25 09:44 Dose: Not Given Documented By: GRACE Non-Admin Reason: Physician Held Med Docusate Sodium (Docusate Sodium 100 Mg/10 Ml Liquid) 100 mg G-TUBE BID [facility] Last Admin: 03/05/25 07:50 Dose: 100 mg Documented By: REAL Enoxaparin Sodium (Enoxaparin Sodium 40 Mg/0.4 Ml Syringe) 40 mg SUBCUT Q24H [facility] Last Admin: 03/05/25 07:50 Dose: 40 mg Documented By: REAL Fluoxetine HCl (Fluoxetine Hcl 20 Mg Capsule) 40 mg PO BEDTIME NATE On Hold: 02/22/25 14:23 Last Admin: 02/21/25 22:23 Dose: Not Given Documented By: PAPITO Non-Admin Reason: pt refused Glucagon (Glucagon Hcl 1 Mg Vial) 1 mg IM Q20M PRN PRN Reason: low BG Glucose (Glucose Gel 15 Gm Gel..Gram.) 15 gm PO Q15M PRN; Protocol PRN Reason: per Hypoglycemia Standing Ord. Hydralazine HCl (Hydralazine Hcl 20 Mg/Ml Vial) 5 mg IVPUSH Q6H PRN; Protocol PRN Reason: htn Last Admin: 02/23/25 17:30 Dose: 5 mg Documented By: JAYME Valproic Acid 500 mg/ Dextrose 55 mls @ 52.5 mls/hr IV Q12H [facility] Last Infusion: 03/05/25 10:52 Dose: Infused Documented By: GRACE Insulin Glargine (Insulin Glargine,Hum.Rec.Anlog 100 Unit/Ml 10 Ml Vial) 24 unit SUBCUT DAILY [facility] On Hold: 02/18/25 20:34 Last Admin: 02/18/25 09:21 Dose: Not Given Documented By: SRINIVASA Non-Admin Reason: not eating Insulin Human Lispro (Insulin Lispro 100 Unit/Ml 3 Ml Vial) 0 unit SUBCUT QIDACHS [facility]; Protocol Last Admin: 03/05/25 12:25 Dose: 2 unit Documented By: REAL Magnesium Hydroxide (Milk Of Magnesia 30 Ml Oral.Susp) 30 ml PO DAILY PRN PRN Reason: Constipation Melatonin (Melatonin 3 Mg Tablet) 6 mg PO BEDTIME PRN PRN Reason: Insomnia Metoprolol Tartrate (Metoprolol Tartrate 12.5 Mg Halftab) 12.5 mg PO BID NATE; Protocol Last Admin: 03/05/25 07:51 Dose: 12.5 mg Documented By: REAL Morphine Sulfate (Morphine Sulfate 2 Mg/Ml Cartridge) 2 mg IVPUSH Q6H PRN; Protocol PRN Reason: Pain, Severe (Pain Scale 7-10) Naloxone HCl (Naloxone Hcl 0.4 Mg/Ml Vial) 0.04 mg IVPUSH Q5M PRN PRN Reason: Excessive sedation or RR < 8 Omeprazole (Omeprazole 20 Mg Capsule.Dr) 20 mg PO DAILY@0630 [facility] Last Admin: 03/05/25 06:30 Dose: Not Given Documented By: RONDA Non-Admin Reason: Patient Condition Contraindication Comments: Cannot be crushed Perphenazine (Perphenazine 2 Mg Tablet) 2 mg PO BID [facility] Last Admin: 03/05/25 09:44 Dose: Not Given Documented By: GRACE Non-Admin Reason: Physician Held Med Perphenazine (Perphenazine 4 Mg Tablet) 4 mg PO BID [facility] Last Admin: 03/05/25 09:44 Dose: Not Given Documented By: GRACE Non-Admin Reason: Physician Held Med Pharmacy Consult (Consult Rx Parenteral Nutrition Ordering) 1 each MISCELLANE DAILY PRN PRN Reason: Consult order Senna (Sennosides 8.6 Mg Tablet) 8.6 mg PO DAILY [facility] Last Admin: 03/05/25 07:51 Dose: 8.6 mg Documented By: REAL Sodium Biphosphate/Sodium Phosphate (Sodium Phosphate,[place]-Dibasic 133 Ml Enema) 133 ml [place] DAILY PRN PRN Reason: Constipation Sodium Chloride (0.9 % Sodium Chloride Flush 3 Ml Syringe) 3 ml IVFLUSH QSHIFT [facility] Last Admin: 03/05/25 07:56 Dose: 3 ml Documented By: REAL Trazodone HCl (Trazodone Hcl 50 Mg Tablet) 50 mg PO BEDTIME MRX1 PRN PRN Reason: Insomnia Last Admin: 03/03/25 23:01 Dose: 50 mg Documented By: PAPITO Labs 03/04/25 06:46 03/05/25 07:07 Labs: Laboratory Results - last 24 hr 03/04/25 03/04/25 03/04/25 16:09 20:37 22:07 Anion Gap Estim Creat Clear Calc Estimated GFR POC Glucose 181 H 203 H 200 H Random Glucose Calcium Phosphorus Magnesium Albumin 03/05/25 03/05/25 03/05/25 07:07 07:16 11:07 Anion Gap 11 L Estim Creat Clear Calc 108.0 Estimated GFR > 60 POC Glucose 203 H 194 H Random Glucose 238 H Calcium 8.5 Phosphorus 3.2 Magnesium 1.7 Albumin 2.7 L Assessment and Plan (1) Alzheimer's dementia: Status: Acute Plan 69M PMH schizoaffective disorder with psychotic features, major depressive disorder, diabetes, GERD presented to the ED on 02/14/2025 for multiple falls. became hypoxic on 02/16/25 1.Acute toxic metabolic encephalopathy and Acute hypoxic respiratory failure due to aspiration pneumonia -completed IV Unasyn . blood cultures neg , weaned O2 as tolerated, aspiration precautions, off oxygen, goal saturation 95% -Seen by speech and swallow-purred /nector thick. but had very poor intake, so was using tpn -underwent gtube 03/02/25, will start feeds today 2.Schizoaffective disorder with psychotic features -depakote and valium IV -adjusted clozapine 50 mg tid -psych/care team prior to discharge. 3.Diabetes II -acceptable control on current therapies -lispro correctional scale -adjust as indicated Lovenox Full Code reason for continued hospitalization:starting tube feeds Quality Stroke Does the patient have a stroke diagnosis?: No VTE Prior VTE?: No VTE Risk Level:: Medical - moderate - high VTE Device Contraindication: Treatment Not Indicated VTE Drug Contraindication: N/A - Med Ordered
[2025-03-05 15:27] VITALS: BP 126/60; PULSE 68; RESP 14; TEMP 36.7; O2SAT 95
[2025-03-05 16:20] LABS: Glucose, Whole Blood 214 mg/dL (60-115)
[2025-03-05 19:34] VITALS: BP 116/56; PULSE 67; RESP 20; TEMP 36.5; O2SAT 95
[2025-03-05 21:06] LABS: Glucose, Whole Blood 209 mg/dL (60-115)
[2025-03-05] MEDS: diazePAM 10 MG/2 ML CARTRIDGE 3 MG IVPUSH (21:40)
[2025-03-06 03:29] VITALS: BP 120/57; PULSE 64; RESP 20; TEMP 36.8; O2SAT 93
[2025-03-06 06:55] LABS: Neut%MD 49.7 %; WBCANC 5.0 X10*3/uL
[2025-03-06 07:13] LABS: Albumin Level 2.5 g/dL (3.5-5.0); Anion Gap 10 (12-20); Blood Urea Nitrogen 15 mg/dL (9-16); Calcium 8.5 mg/dL (8.4-10.2); Carbon Dioxide 31 mmol/L (22-29); Chloride 105 mmol/L (96-108); Creatinine Clr Calc Pharmacy 117.5; Estimated Glomerular Filt Rate > 60; Magnesium 1.8 mg/dL (1.6-2.6); Potassium 4.0 mmol/L (3.3-5.1); Sodium 142 mmol/L (135-145)
[2025-03-06] MEDS: Valproic Acid (as Sodium Salt) 500 MG in Dextrose 5 % 50 ML 52.5 MG IV ×2 (07:45→21:47)
[2025-03-06 07:46] LABS: Glucose, Whole Blood 240 mg/dL (60-115)
[2025-03-06] MEDS: Metoprolol Tartrate 12.5 MG HALFTAB PO ×2 (07:47→21:50)
[2025-03-06 07:48] VITALS: BP 128/62; PULSE 70; RESP 18; TEMP 36.4; O2SAT 95
[2025-03-06] MEDS: 0.9 % Sodium Chloride Flush 3 ML SYRINGE IVFLUSH ×2 (07:51→21:51)
[2025-03-06 07:52] VITALS: BP 126/59; PULSE 65; RESP 14; TEMP 36.3; O2SAT 93
--- NOTE | 2025-03-06 08:21 | MHC.CM.PN ---
EMR REVIEWED, PER HOSPITALIST PT MEDICALLY CLEARED AND CONFIRMED [facility] NOT TAKE PT BACK D/T UNABLE TO MANAGE BEHAVIORS, CARE TEAM CONSULT REQUESTED, STATE INVOLVED AND TRYING TO GET PT INTO [facility], REFERRAL PLACED AND CM WILL CONT TO FOLLOW DC NEEDS.
--- NOTE | 2025-03-06 10:15 | MHC.CARE ---
Pt does not meet the criteria for a higher level of care and will be referred to case management. Hospitalist in agreement.
[2025-03-06 11:35] LABS: Glucose, Whole Blood 222 mg/dL (60-115)
[2025-03-06 11:39] VITALS: BP 112/56; PULSE 65; RESP 18; TEMP 36.7; O2SAT 94
--- NOTE | 2025-03-06 11:52 | MHC.CLN ---
F/U S/P PEG TUBE PLACEMENT REVIEWED LABS PT IS TOLERATING TF AT MAX GOAL RATE WITH LOW RESIDUALS PER NSG RECEIVING TF GLUCERNA 1.2 AT MAX GOAL RATE 70ML/HR WITH 240ML FREE WATER FLUSHES Q 8 HRS TO PROVIDE 2016KCALS (30KCALS/KG), 101G PROTEIN (1.5G/KG), 2072ML TOTAL WATER (31ML/KG) MONITOR TOLERANCE AND LYTES CONTINUE CARE PLAN
--- NOTE | 2025-03-06 14:19 | HO.PM.IMPN ---
Subjective Subjective Date of Service: 03/06/25 Interval History: More alert today. No acute behavioral issues Review of Systems Unable to obtain Physical Exam Vital Signs: Vital Signs: Last Vital Signs Temp 98.0 F 03/06/25 11:39 Pulse 65 03/06/25 11:39 Resp 18 03/06/25 11:39 BP 112/56 L 03/06/25 11:39 Pulse Ox 94 03/06/25 11:39 O2 Del Method Room Air 03/06/25 11:39 O2 Flow Rate 0 03/02/25 15:49 BMI result Body Mass Index 23.3 Const: Other: Somnolent; nonverbal Resp: Other: Clear to auscultation bilaterally no rales rhonchi or wheezes Cardio: Other: No S4; positive S1-S2; no S3 murmurs rubs or gallops GI: Other: Soft nontender nondistended normoactive bowel sounds Extrem: Other: No edema bilaterally Objective Data Active Medications Acetaminophen (Acetaminophen 325 Mg Tablet) 650 mg PO Q6H PRN PRN Reason: Headache/Pain, Scale 1-10 Al Hydroxide/Mg Hydroxide (Magnesium Hydrox/Alum Hydrox 30 Ml Oral.Susp) 30 ml PO Q6H PRN PRN Reason: Heartburn/Nausea Calcium Carbonate (Calcium Carbonate 750 Mg Tab.Chew) 750 mg PO Q4H PRN PRN Reason: Heartburn Clozapine (Clozapine 25 Mg Tablet) 50 mg PO TID [facility] Last Admin: 03/06/25 07:47 Dose: 50 mg Documented By: REAL Dextrose (Dextrose 50 % 25 Gm/50 Ml Syringe) 25 gm IVPUSH Q15M PRN; Protocol PRN Reason: per Hypoglycemia Standing Ord. Diazepam (Diazepam 10 Mg/2 Ml Cartridge) 3 mg IVPUSH TID [facility] Last Admin: 03/06/25 10:17 Dose: Not Given Documented By: REAL Non-Admin Reason: Physician Held Med Docusate Sodium (Docusate Sodium 100 Mg/10 Ml Liquid) 100 mg G-TUBE BID [facility] Last Admin: 03/06/25 07:49 Dose: 100 mg Documented By: REAL Enoxaparin Sodium (Enoxaparin Sodium 40 Mg/0.4 Ml Syringe) 40 mg SUBCUT Q24H [facility] Last Admin: 03/06/25 07:49 Dose: 40 mg Documented By: REAL Fluoxetine HCl (Fluoxetine Hcl 20 Mg Capsule) 40 mg PO BEDTIME NATE On Hold: 02/22/25 14:23 Last Admin: 02/21/25 22:23 Dose: Not Given Documented By: PAPITO Non-Admin Reason: pt refused Glucagon (Glucagon Hcl 1 Mg Vial) 1 mg IM Q20M PRN PRN Reason: low BG Glucose (Glucose Gel 15 Gm Gel..Gram.) 15 gm PO Q15M PRN; Protocol PRN Reason: per Hypoglycemia Standing Ord. Hydralazine HCl (Hydralazine Hcl 20 Mg/Ml Vial) 5 mg IVPUSH Q6H PRN; Protocol PRN Reason: htn Last Admin: 02/23/25 17:30 Dose: 5 mg Documented By: JAYME Valproic Acid 500 mg/ Dextrose 55 mls @ 52.5 mls/hr IV Q12H [facility] Last Infusion: 03/06/25 10:24 Dose: Infused Documented By: REAL Insulin Glargine (Insulin Glargine,Hum.Rec.Anlog 100 Unit/Ml 10 Ml Vial) 24 unit SUBCUT DAILY [facility]1983 On Hold: 02/18/25 20:34 Last Admin: 02/18/25 09:21 Dose: Not Given Documented By: SRINIVASA Non-Admin Reason: not eating Insulin Human Lispro (Insulin Lispro 100 Unit/Ml 3 Ml Vial) 0 unit SUBCUT QIDACHS [facility], [facility]; Protocol Last Admin: 03/06/25 11:38 Dose: 4 unit Documented By: REAL Magnesium Hydroxide (Milk Of Magnesia 30 Ml Oral.Susp) 30 ml PO DAILY PRN PRN Reason: Constipation Melatonin (Melatonin 3 Mg Tablet) 6 mg PO BEDTIME PRN PRN Reason: Insomnia Metoprolol Tartrate (Metoprolol Tartrate 12.5 Mg Halftab) 12.5 mg PO BID [facility]; Protocol Last Admin: 03/06/25 07:47 Dose: 12.5 mg Documented By: REAL Morphine Sulfate (Morphine Sulfate 2 Mg/Ml Cartridge) 2 mg IVPUSH Q6H PRN; Protocol PRN Reason: Pain, Severe (Pain Scale 7-10) Naloxone HCl (Naloxone Hcl 0.4 Mg/Ml Vial) 0.04 mg IVPUSH Q5M PRN PRN Reason: Excessive sedation or RR < 8 Omeprazole (Omeprazole 20 Mg Capsule.Dr) 20 mg PO DAILY@0630 [facility] Last Admin: 03/06/25 05:40 Dose: Not Given Documented By: JODI Non-Admin Reason: cannot crush Perphenazine (Perphenazine 2 Mg Tablet) 2 mg PO BID [facility] Last Admin: 03/06/25 10:17 Dose: Not Given Documented By: REAL Non-Admin Reason: Physician Held Med Perphenazine (Perphenazine 4 Mg Tablet) 4 mg PO BID [facility] Last Admin: 03/06/25 10:17 Dose: Not Given Documented By: REAL Non-Admin Reason: Physician Held Med Pharmacy Consult (Consult Rx Parenteral Nutrition Ordering) 1 each MISCELLANE DAILY PRN PRN Reason: Consult order Senna (Sennosides 8.6 Mg Tablet) 8.6 mg PO DAILY [facility] Last Admin: 03/06/25 07:47 Dose: 8.6 mg Documented By: REAL Sodium Biphosphate/Sodium Phosphate (Sodium Phosphate,[place]-Dibasic 133 Ml Enema) 133 ml [place] DAILY PRN PRN Reason: Constipation Sodium Chloride (0.9 % Sodium Chloride Flush 3 Ml Syringe) 3 ml IVFLUSH QSHIFT [facility] Last Admin: 03/06/25 07:51 Dose: 3 ml Documented By: REAL Trazodone HCl (Trazodone Hcl 50 Mg Tablet) 50 mg PO BEDTIME MRX1 PRN PRN Reason: Insomnia Last Admin: 03/03/25 23:01 Dose: 50 mg Documented By: PAPITO Labs 03/04/25 06:46 03/06/25 06:31 Labs: Laboratory Results - last 24 hr 03/05/25 03/05/25 03/06/25 16:14 20:55 06:31 Absolute Neuts (auto) 2.5 Anion Gap 10 L Estim Creat Clear Calc 117.5 Estimated GFR > 60 POC Glucose 214 H 209 H Random Glucose 233 H Calcium 8.5 Phosphorus 3.1 Magnesium 1.8 Albumin 2.5 L 03/06/25 03/06/25 07:42 11:31 Absolute Neuts (auto) Anion Gap Estim Creat Clear Calc Estimated GFR POC Glucose 240 H 222 H Random Glucose Calcium Phosphorus Magnesium Albumin Assessment and Plan (1) Alzheimer's dementia: Status: Acute (2) Schizoaffective disorder: Status: Acute Plan 69M PMH schizoaffective disorder with psychotic features, major depressive disorder, diabetes, GERD presented to the ED on 02/14/2025 for multiple falls. became hypoxic on 02/16/25 1.Acute toxic metabolic encephalopathy and Acute hypoxic respiratory failure due to aspiration pneumonia -completed IV Unasyn . blood cultures neg , weaned O2 as tolerated, aspiration precautions, off oxygen, goal saturation 95% -Seen by speech and swallow-purred /nector thick. but had very poor intake, so was using tpn -underwent gtube 03/02/25, tolerating tube feedings 2.Schizoaffective disorder with psychotic features -depakote and valium IV -adjusted clozapine 50 mg tid -psych/care team prior to discharge. 3.Diabetes II -acceptable control on current therapies -lispro correctional scale -adjust as indicated Lovenox Full Code reason for continued hospitalization:starting tube feeds Quality Stroke Does the patient have a stroke diagnosis?: No VTE Prior VTE?: No VTE Risk Level:: Medical - moderate - high VTE Device Contraindication: Treatment Not Indicated VTE Drug Contraindication: N/A - Med Ordered
[2025-03-06 15:40] VITALS: BP 112/55; PULSE 64; RESP 18; TEMP 36.2; O2SAT 95
[2025-03-06 16:26] LABS: Glucose, Whole Blood 220 mg/dL (60-115)
[2025-03-06 20:00] VITALS: BP 158/89; PULSE 63; RESP 16; TEMP 36.9; O2SAT 95
[2025-03-06 20:47] LABS: Glucose, Whole Blood 145 mg/dL (60-115)
[2025-03-06] MEDS: diazePAM 10 MG/2 ML CARTRIDGE 3 MG IVPUSH (22:08)
[2025-03-07] VITALS (8 sets, daily range): BP systolic 96–134; BP diastolic 55–89; PULSE 60–73; RESP 16–18; TEMP 36.1–37.2; O2SAT 92–96
--- NOTE | 2025-03-07 04:51 | PC.NURSE ---
Pt seen on bed at shift change asleep, awaken with care, can be verbally abusive and refusing care, agitated and tries to slap staff away, repo done, tolerating tube feed via PEG.
[2025-03-07 07:47] LABS: Glucose, Whole Blood 208 mg/dL (60-115)
[2025-03-07] MEDS: Metoprolol Tartrate 12.5 MG HALFTAB PO ×2 (07:49→23:03)
[2025-03-07] MEDS: 0.9 % Sodium Chloride Flush 3 ML SYRINGE IVFLUSH ×3 (07:50→22:44)
[2025-03-07] MEDS: diazePAM 10 MG/2 ML CARTRIDGE 3 MG IVPUSH ×3 (07:50→22:42)
[2025-03-07] MEDS: Valproic Acid (as Sodium Salt) 500 MG in Dextrose 5 % 50 ML 52.5 MG IV ×2 (08:24→22:43)
[2025-03-07 11:39] LABS: Glucose, Whole Blood 206 mg/dL (60-115)
--- NOTE | 2025-03-07 12:41 | P.PNIM_ITS ---
Subjective Subjective Date of Service: 03/07/25 Interval History: More alert today. No acute behavioral issues Review of Systems Unable to obtain Physical Exam 2 Vital Signs: Vital Signs: Last Vital Signs Temp 97.0 F 03/07/25 07:54 Pulse 63 03/07/25 07:54 Resp 18 03/07/25 07:54 BP 117/71 03/07/25 07:54 Pulse Ox 94 03/07/25 07:54 O2 Del Method Room Air 03/07/25 07:54 O2 Flow Rate 0 03/02/25 15:49 BMI result Body Mass Index 23.3 Const: Other: Somnolent; nonverbal Resp: Other: Clear to auscultation bilaterally no rales rhonchi or wheezes Cardio: Other: No S4; positive S1-S2; no S3 murmurs rubs or gallops GI: Other: Soft nontender nondistended normoactive bowel sounds Extrem: Other: No edema bilaterally Objective Data Active Medications Acetaminophen (Acetaminophen 325 Mg Tablet) 650 mg PO Q6H PRN PRN Reason: Headache/Pain, Scale 1-10 Al Hydroxide/Mg Hydroxide (Magnesium Hydrox/Alum Hydrox 30 Ml Oral.Susp) 30 ml PO Q6H PRN PRN Reason: Heartburn/Nausea Calcium Carbonate (Calcium Carbonate 750 Mg Tab.Chew) 750 mg PO Q4H PRN PRN Reason: Heartburn Clozapine (Clozapine 25 Mg Tablet) 50 mg PO TID [facility] Last Admin: 03/07/25 07:49 Dose: 50 mg Documented By: SANDRA Dextrose (Dextrose 50 % 25 Gm/50 Ml Syringe) 25 gm IVPUSH Q15M PRN; Protocol PRN Reason: per Hypoglycemia Standing Ord. Diazepam (Diazepam 10 Mg/2 Ml Cartridge) 3 mg IVPUSH TID [facility] Last Admin: 03/07/25 07:50 Dose: 3 mg Documented By: SANDRA Docusate Sodium (Docusate Sodium 100 Mg/10 Ml Liquid) 100 mg G-TUBE BID [facility] Last Admin: 03/07/25 07:49 Dose: 100 mg Documented By: SANDRA Enoxaparin Sodium (Enoxaparin Sodium 40 Mg/0.4 Ml Syringe) 40 mg SUBCUT Q24H [facility] Last Admin: 03/07/25 07:49 Dose: 40 mg Documented By: SANDRA Fluoxetine HCl (Fluoxetine Hcl 20 Mg Capsule) 40 mg PO BEDTIME NATE On Hold: 02/22/25 14:23 Last Admin: 02/21/25 22:23 Dose: Not Given Documented By: PAPITO Non-Admin Reason: pt refused Glucagon (Glucagon Hcl 1 Mg Vial) 1 mg IM Q20M PRN PRN Reason: low BG Glucose (Glucose Gel 15 Gm Gel..Gram.) 15 gm PO Q15M PRN; Protocol PRN Reason: per Hypoglycemia Standing Ord. Hydralazine HCl (Hydralazine Hcl 20 Mg/Ml Vial) 5 mg IVPUSH Q6H PRN; Protocol PRN Reason: htn Last Admin: 02/23/25 17:30 Dose: 5 mg Documented By: JAYME Valproic Acid 500 mg/ Dextrose 55 mls @ 52.5 mls/hr IV Q12H [facility] Last Infusion: 03/07/25 09:48 Dose: Infused Documented By: SANDRA Insulin Glargine (Insulin Glargine,Hum.Rec.Anlog 100 Unit/Ml 10 Ml Vial) 24 unit SUBCUT DAILY [facility] On Hold: 02/18/25 20:34 Last Admin: 02/18/25 09:21 Dose: Not Given Documented By: SRINIVASA Non-Admin Reason: not eating Insulin Human Lispro (Insulin Lispro 100 Unit/Ml 3 Ml Vial) 0 unit SUBCUT QIDACHS [facility]; Protocol Last Admin: 03/07/25 08:07 Dose: 4 unit Documented By: SANDRA Magnesium Hydroxide (Milk Of Magnesia 30 Ml Oral.Susp) 30 ml PO DAILY PRN PRN Reason: Constipation Melatonin (Melatonin 3 Mg Tablet) 6 mg PO BEDTIME PRN PRN Reason: Insomnia Metoprolol Tartrate (Metoprolol Tartrate 12.5 Mg Halftab) 12.5 mg PO BID [facility]; Protocol Last Admin: 03/07/25 07:49 Dose: 12.5 mg Documented By: SANDRA Morphine Sulfate (Morphine Sulfate 2 Mg/Ml Cartridge) 2 mg IVPUSH Q6H PRN; Protocol PRN Reason: Pain, Severe (Pain Scale 7-10) Naloxone HCl (Naloxone Hcl 0.4 Mg/Ml Vial) 0.04 mg IVPUSH Q5M PRN PRN Reason: Excessive sedation or RR < 8 Omeprazole (Omeprazole 20 Mg Capsule.) 20 mg PO DAILY@0630 [facility] Last Admin: 03/07/25 06:29 Dose: Not Given Documented By: BENEDICT Non-Admin Reason: can not be crushed Perphenazine (Perphenazine 2 Mg Tablet) 2 mg PO BID [facility] Last Admin: 03/07/25 07:49 Dose: 2 mg Documented By: SANDRA Perphenazine (Perphenazine 4 Mg Tablet) 4 mg PO BID [facility] Last Admin: 03/07/25 07:49 Dose: 4 mg Documented By: SANDRA Pharmacy Consult (Consult Rx Parenteral Nutrition Ordering) 1 each MISCELLANE DAILY PRN PRN Reason: Consult order Senna (Sennosides 8.6 Mg Tablet) 8.6 mg PO DAILY [facility] Last Admin: 03/07/25 07:49 Dose: 8.6 mg Documented By: SANDRA Sodium Biphosphate/Sodium Phosphate (Sodium Phosphate,[place]-Dibasic 133 Ml Enema) 133 ml [place] DAILY PRN PRN Reason: Constipation Sodium Chloride (0.9 % Sodium Chloride Flush 3 Ml Syringe) 3 ml IVFLUSH QSHIFT [facility] Last Admin: 03/07/25 07:50 Dose: 3 ml Documented By: SANDRA Trazodone HCl (Trazodone Hcl 50 Mg Tablet) 50 mg PO BEDTIME MRX1 PRN PRN Reason: Insomnia Last Admin: 03/03/25 23:01 Dose: 50 mg Documented By: PAPITO Labs 03/04/25 06:46 03/06/25 06:31 Labs: Laboratory Results - last 24 hr 03/06/25 03/06/25 03/07/25 16:14 20:44 07:35 POC Glucose 220 H 145 H 208 H 03/07/25 11:22 POC Glucose 206 H Assessment and Plan (1) Schizoaffective disorder: Status: Acute Plan 69M PMH schizoaffective disorder with psychotic features, major depressive disorder, diabetes, GERD presented to the ED on 02/14/2025 for multiple falls. became hypoxic on 02/16/25 1.Acute toxic metabolic encephalopathy and Acute hypoxic respiratory failure due to aspiration pneumonia -completed IV Unasyn . blood cultures neg , weaned O2 as tolerated, aspiration precautions, off oxygen, goal saturation 95% -Seen by speech and swallow-purred /nector thick. but had very poor intake, so was using tpn -underwent gtube 03/02/25, tolerating tube feedings 2.Schizoaffective disorder with psychotic features -depakote and valium IV -adjusted clozapine 50 mg tid -psych/care team prior to discharge. 3.Diabetes II -acceptable control on current therapies -lispro correctional scale -adjust as indicated Lovenox Full Code reason for continued hospitalization:starting tube feeds Quality Stroke Does the patient have a stroke diagnosis?: No VTE Prior VTE?: No VTE Risk Level:: Medical - moderate - high VTE Device Contraindication: Treatment Not Indicated VTE Drug Contraindication: N/A - Med Ordered
[2025-03-07 16:33] LABS: Glucose, Whole Blood 199 mg/dL (60-115)
[2025-03-07 20:10] LABS: Glucose, Whole Blood 217 mg/dL (60-115)
[2025-03-08] VITALS (7 sets, daily range): BP systolic 97–130; BP diastolic 52–64; PULSE 61–64; RESP 14–18; TEMP 36.1–36.5; O2SAT 94–97
[2025-03-08] MEDS: Omeprazole/Na Bicarb Oral Susp 20 MG/10 ML UD Cup G-TUBE (06:42)
[2025-03-08 08:13] LABS: Glucose, Whole Blood 268 mg/dL (60-115)
[2025-03-08] MEDS: Valproic Acid (as Sodium Salt) 500 MG in Dextrose 5 % 50 ML 52.5 MG IV ×2 (08:36→23:36)
[2025-03-08] MEDS: 0.9 % Sodium Chloride Flush 3 ML SYRINGE IVFLUSH ×2 (08:36→16:08)
[2025-03-08] MEDS: Metoprolol Tartrate 12.5 MG HALFTAB PO ×2 (08:36→22:22)
[2025-03-08] MEDS: diazePAM 10 MG/2 ML CARTRIDGE 3 MG IVPUSH (08:37)
--- NOTE | 2025-03-08 11:08 | P.PNIM_ITS ---
Subjective Subjective Date of Service: 03/08/25 Interval History: Alert, wants to get up and walk, cooperative, Review of Systems Unable to obtain Physical Exam 2 Vital Signs: Vital Signs: Last Vital Signs Temp 97.7 F 03/08/25 08:00 Pulse 61 03/08/25 08:00 Resp 18 03/08/25 08:00 BP 115/58 L 03/08/25 08:00 Pulse Ox 96 03/08/25 08:00 O2 Del Method Room Air 03/08/25 08:00 O2 Flow Rate 3 03/07/25 23:35 BMI result Body Mass Index 23.3 Const: Other: Somnolent; nonverbal Resp: Other: Clear to auscultation bilaterally no rales rhonchi or wheezes Cardio: Other: No S4; positive S1-S2; no S3 murmurs rubs or gallops GI: Other: Soft nontender nondistended normoactive bowel sounds Extrem: Other: No edema bilaterally Objective Data Active Medications Acetaminophen (Acetaminophen 325 Mg Tablet) 650 mg PO Q6H PRN PRN Reason: Headache/Pain, Scale 1-10 Al Hydroxide/Mg Hydroxide (Magnesium Hydrox/Alum Hydrox 30 Ml Oral.Susp) 30 ml PO Q6H PRN PRN Reason: Heartburn/Nausea Calcium Carbonate (Calcium Carbonate 750 Mg Tab.Chew) 750 mg PO Q4H PRN PRN Reason: Heartburn Clozapine (Clozapine 25 Mg Tablet) 50 mg PO TID [facility] Last Admin: 03/08/25 08:36 Dose: 50 mg Documented By: TERESA Dextrose (Dextrose 50 % 25 Gm/50 Ml Syringe) 25 gm IVPUSH Q15M PRN; Protocol PRN Reason: per Hypoglycemia Standing Ord. Diazepam (Diazepam 10 Mg/2 Ml Cartridge) 3 mg IVPUSH TID [facility] Last Admin: 03/08/25 08:37 Dose: 3 mg Documented By: TERESA Docusate Sodium (Docusate Sodium 100 Mg/10 Ml Liquid) 100 mg G-TUBE BID [facility] Last Admin: 03/08/25 08:36 Dose: 100 mg Documented By: TERESA Enoxaparin Sodium (Enoxaparin Sodium 40 Mg/0.4 Ml Syringe) 40 mg SUBCUT Q24H [facility] Last Admin: 03/08/25 08:37 Dose: 40 mg Documented By: TERESA Fluoxetine HCl (Fluoxetine Hcl 20 Mg Capsule) 40 mg PO BEDTIME NATE On Hold: 02/22/25 14:23 Last Admin: 02/21/25 22:23 Dose: Not Given Documented By: PAPITO Non-Admin Reason: pt refused Glucagon (Glucagon Hcl 1 Mg Vial) 1 mg IM Q20M PRN PRN Reason: low BG Glucose (Glucose Gel 15 Gm Gel..Gram.) 15 gm PO Q15M PRN; Protocol PRN Reason: per Hypoglycemia Standing Ord. Hydralazine HCl (Hydralazine Hcl 20 Mg/Ml Vial) 5 mg IVPUSH Q6H PRN; Protocol PRN Reason: htn Last Admin: 02/23/25 17:30 Dose: 5 mg Documented By: JAYME Valproic Acid 500 mg/ Dextrose 55 mls @ 52.5 mls/hr IV Q12H [facility] Last Infusion: 03/08/25 09:59 Dose: Infused Documented By: TERESA Insulin Glargine (Insulin Glargine,Hum.Rec.Anlog 100 Unit/Ml 10 Ml Vial) 24 unit SUBCUT DAILY [facility] On Hold: 02/18/25 20:34 Last Admin: 02/18/25 09:21 Dose: Not Given Documented By: SRINIVASA Non-Admin Reason: not eating Insulin Human Lispro (Insulin Lispro 100 Unit/Ml 3 Ml Vial) 0 unit SUBCUT QIDACHS [facility]; Protocol Last Admin: 03/08/25 08:35 Dose: 6 unit Documented By: TERESA Magnesium Hydroxide (Milk Of Magnesia 30 Ml Oral.Susp) 30 ml PO DAILY PRN PRN Reason: Constipation Melatonin (Melatonin 3 Mg Tablet) 6 mg PO BEDTIME PRN PRN Reason: Insomnia Metoprolol Tartrate (Metoprolol Tartrate 12.5 Mg Halftab) 12.5 mg PO BID [facility]; Protocol Last Admin: 03/08/25 08:36 Dose: 12.5 mg Documented By: TERESA Naloxone HCl (Naloxone Hcl 0.4 Mg/Ml Vial) 0.04 mg IVPUSH Q5M PRN PRN Reason: Excessive sedation or RR < 8 Omeprazole (Omeprazole/Na Bicarb Oral Susp 20 Mg/10 Ml Ud Cup) 20 mg G-TUBE DAILY@0630 [facility] Last Admin: 03/08/25 06:42 Dose: 20 mg Documented By: ANEUDY Perphenazine (Perphenazine 2 Mg Tablet) 2 mg PO BID [facility] Last Admin: 03/08/25 08:36 Dose: 2 mg Documented By: TERESA Perphenazine (Perphenazine 4 Mg Tablet) 4 mg PO BID [facility] Last Admin: 03/08/25 08:36 Dose: 4 mg Documented By: TERESA Pharmacy Consult (Consult Rx Parenteral Nutrition Ordering) 1 each MISCELLANE DAILY PRN PRN Reason: Consult order Senna (Sennosides 8.6 Mg Tablet) 8.6 mg PO DAILY [facility] Last Admin: 03/08/25 08:36 Dose: 8.6 mg Documented By: TERESA Sodium Biphosphate/Sodium Phosphate (Sodium Phosphate,[place]-Dibasic 133 Ml Enema) 133 ml [place] DAILY PRN PRN Reason: Constipation Sodium Chloride (0.9 % Sodium Chloride Flush 3 Ml Syringe) 3 ml IVFLUSH QSHIFT [facility] Last Admin: 03/08/25 08:36 Dose: 3 ml Documented By: TERESA Trazodone HCl (Trazodone Hcl 50 Mg Tablet) 50 mg PO BEDTIME MRX1 PRN PRN Reason: Insomnia Last Admin: 03/03/25 23:01 Dose: 50 mg Documented By: PAPITO Labs 03/04/25 06:46 03/06/25 06:31 Labs: Laboratory Results - last 24 hr 03/07/25 03/07/25 03/07/25 11:22 16:22 20:05 POC Glucose 206 H 199 H 217 H 03/08/25 08:07 POC Glucose 268 H Assessment and Plan (1) Schizoaffective disorder: Status: Acute Plan 69M PMH schizoaffective disorder with psychotic features, major depressive disorder, diabetes, GERD presented to the ED on 02/14/2025 for multiple falls. became hypoxic on 02/16/25 and treated for aspiration pneumonia 1.Acute toxic metabolic encephalopathy and Acute hypoxic respiratory failure due to aspiration pneumonia -completed IV Unasyn . blood cultures neg , weaned O2 as tolerated, aspiration precautions, off oxygen, goal saturation 95% -Seen by speech and swallow-purred /nector thick. but had very poor intake, so was using tpn -underwent gtube 03/02/25, tolerating tube feedings 2.Schizoaffective disorder with psychotic features -depakote and valium IV to PO today -adjusted clozapine 50 mg tid -psych/care team prior to discharge. 3.Diabetes II -acceptable control on current therapies -lispro correctional scale -adjust as indicated Lovenox Full Code reason for continued hospitalization:starting tube feeds and need for placement doesn't need tele at this point Quality Stroke Does the patient have a stroke diagnosis?: No VTE Prior VTE?: No VTE Risk Level:: Medical - moderate - high VTE Device Contraindication: Treatment Not Indicated VTE Drug Contraindication: N/A - Med Ordered
[2025-03-08 11:51] LABS: Glucose, Whole Blood 259 mg/dL (60-115)
[2025-03-08 16:15] LABS: Glucose, Whole Blood 274 mg/dL (60-115)
[2025-03-08 20:50] LABS: Glucose, Whole Blood 176 mg/dL (60-115)
[2025-03-08 22:24] LABS: Glucose, Whole Blood 140 mg/dL (60-115)
[2025-03-09 03:40] VITALS: BP 104/51; PULSE 58; RESP 16; TEMP 36.8; O2SAT 93
[2025-03-09] MEDS: Omeprazole/Na Bicarb Oral Susp 20 MG/10 ML UD Cup G-TUBE (05:34)
[2025-03-09 07:37] VITALS: BP 119/55; PULSE 68; RESP 18; TEMP 36.4; O2SAT 97
[2025-03-09 07:37] LABS: Glucose, Whole Blood 228 mg/dL (60-115)
[2025-03-09] MEDS: Metoprolol Tartrate 12.5 MG HALFTAB PO ×2 (07:46→21:17)
[2025-03-09] MEDS: 0.9 % Sodium Chloride Flush 3 ML SYRINGE IVFLUSH ×3 (08:08→23:51)
[2025-03-09] MEDS: Valproic Acid (as Sodium Salt) 500 MG in Dextrose 5 % 50 ML 52.5 MG IV ×2 (08:28→22:45)
--- NOTE | 2025-03-09 09:32 | HO.PM.IMPN ---
Subjective Subjective Date of Service: 03/09/25 Interval History: Alert, wants to get up and walk, cooperative, Review of Systems Unable to obtain Physical Exam Vital Signs: Vital Signs: Last Vital Signs Temp 97.6 F 03/09/25 07:37 Pulse 68 03/09/25 07:37 Resp 18 03/09/25 07:37 BP 119/55 L 03/09/25 07:37 Pulse Ox 97 03/09/25 07:37 O2 Del Method Room Air 03/09/25 07:37 O2 Flow Rate 3 03/07/25 23:35 BMI result Body Mass Index 23.3 Const: Other: Somnolent; nonverbal Resp: Other: Clear to auscultation bilaterally no rales rhonchi or wheezes Cardio: Other: No S4; positive S1-S2; no S3 murmurs rubs or gallops GI: Other: Soft nontender nondistended normoactive bowel sounds Extrem: Other: No edema bilaterally Objective Data Active Medications Acetaminophen (Acetaminophen 325 Mg Tablet) 650 mg PO Q6H PRN PRN Reason: Headache/Pain, Scale 1-10 Al Hydroxide/Mg Hydroxide (Magnesium Hydrox/Alum Hydrox 30 Ml Oral.Susp) 30 ml PO Q6H PRN PRN Reason: Heartburn/Nausea Calcium Carbonate (Calcium Carbonate 750 Mg Tab.Chew) 750 mg PO Q4H PRN PRN Reason: Heartburn Clozapine (Clozapine 25 Mg Tablet) 50 mg PO TID [facility] Last Admin: 03/09/25 07:46 Dose: 50 mg Documented By: HEVER Dextrose (Dextrose 50 % 25 Gm/50 Ml Syringe) 25 gm IVPUSH Q15M PRN; Protocol PRN Reason: per Hypoglycemia Standing Ord. Diazepam (Diazepam 2 Mg Tablet) 3 mg PO TID [facility] Last Admin: 03/09/25 07:46 Dose: 3 mg Documented By: HEVER Docusate Sodium (Docusate Sodium 100 Mg/10 Ml Liquid) 100 mg G-TUBE BID [facility] Last Admin: 03/09/25 07:46 Dose: 100 mg Documented By: HEVER Enoxaparin Sodium (Enoxaparin Sodium 40 Mg/0.4 Ml Syringe) 40 mg SUBCUT Q24H [facility] Last Admin: 03/09/25 07:46 Dose: 40 mg Documented By: HEVER Fluoxetine HCl (Fluoxetine Hcl 20 Mg Capsule) 40 mg PO BEDTIME NATE On Hold: 02/22/25 14:23 Last Admin: 02/21/25 22:23 Dose: Not Given Documented By: PAPITO Non-Admin Reason: pt refused Glucagon (Glucagon Hcl 1 Mg Vial) 1 mg IM Q20M PRN PRN Reason: low BG Glucose (Glucose Gel 15 Gm Gel..Gram.) 15 gm PO Q15M PRN; Protocol PRN Reason: per Hypoglycemia Standing Ord. Hydralazine HCl (Hydralazine Hcl 20 Mg/Ml Vial) 5 mg IVPUSH Q6H PRN; Protocol PRN Reason: htn Last Admin: 02/23/25 17:30 Dose: 5 mg Documented By: JAYME Valproic Acid 500 mg/ Dextrose 55 mls @ 52.5 mls/hr IV Q12H [facility] Last Admin: 03/09/25 08:28 Dose: 52.5 mls/hr Documented By: HEVER Insulin Glargine (Insulin Glargine,Hum.Rec.Anlog 100 Unit/Ml 10 Ml Vial) 24 unit SUBCUT DAILY [facility] On Hold: 02/18/25 20:34 Last Admin: 02/18/25 09:21 Dose: Not Given Documented By: SRINIVASA Non-Admin Reason: not eating Insulin Human Lispro (Insulin Lispro 100 Unit/Ml 3 Ml Vial) 0 unit SUBCUT QIDACHS [facility]; Protocol Last Admin: 03/09/25 07:47 Dose: 6 unit Documented By: HEVER Magnesium Hydroxide (Milk Of Magnesia 30 Ml Oral.Susp) 30 ml PO DAILY PRN PRN Reason: Constipation Melatonin (Melatonin 3 Mg Tablet) 6 mg PO BEDTIME PRN PRN Reason: Insomnia Metoprolol Tartrate (Metoprolol Tartrate 12.5 Mg Halftab) 12.5 mg PO BID [facility]; Protocol Last Admin: 03/09/25 07:46 Dose: 12.5 mg Documented By: HEVER Naloxone HCl (Naloxone Hcl 0.4 Mg/Ml Vial) 0.04 mg IVPUSH Q5M PRN PRN Reason: Excessive sedation or RR < 8 Omeprazole (Omeprazole/Na Bicarb Oral Susp 20 Mg/10 Ml Ud Cup) 20 mg G-TUBE DAILY@30 [facility] Last Admin: 03/09/25 05:34 Dose: 20 mg Documented By: BILL Perphenazine (Perphenazine 2 Mg Tablet) 2 mg PO BID [facility] Last Admin: 03/08/25 22:22 Dose: 2 mg Documented By: BILL Perphenazine (Perphenazine 4 Mg Tablet) 4 mg PO BID [facility] Last Admin: 03/09/25 07:46 Dose: 4 mg Documented By: HEVER Pharmacy Consult (Consult Rx Parenteral Nutrition Ordering) 1 each MISCELLANE DAILY PRN PRN Reason: Consult order Senna (Sennosides 8.6 Mg Tablet) 8.6 mg PO DAILY [facility] Last Admin: 03/09/25 07:46 Dose: 8.6 mg Documented By: HEVER Sodium Biphosphate/Sodium Phosphate (Sodium Phosphate,[place]-Dibasic 133 Ml Enema) 133 ml [place] DAILY PRN PRN Reason: Constipation Sodium Chloride (0.9 % Sodium Chloride Flush 3 Ml Syringe) 3 ml IVFLUSH QSHIFT [facility] Last Admin: 03/09/25 08:08 Dose: 3 ml Documented By: HEVER Trazodone HCl (Trazodone Hcl 50 Mg Tablet) 50 mg PO BEDTIME MRX1 PRN PRN Reason: Insomnia Last Admin: 03/03/25 23:01 Dose: 50 mg Documented By: PAPITO Labs 03/04/25 06:46 03/06/25 06:31 Labs: Laboratory Results - last 24 hr 03/08/25 03/08/25 03/08/25 11:46 16:10 20:37 POC Glucose 259 H 274 H 176 H 03/08/25 03/09/25 22:20 07:23 POC Glucose 140 H 228 H Assessment and Plan (1) Schizoaffective disorder: Status: Acute Plan 69M PMH schizoaffective disorder with psychotic features, major depressive disorder, diabetes, GERD presented to the ED on 02/14/2025 for multiple falls. became hypoxic on 02/16/25 and treated for aspiration pneumonia Acute toxic metabolic encephalopathy and Acute hypoxic respiratory failure due to aspiration pneumonia completed IV Unasyn . blood cultures neg , weaned O2 as tolerated, aspiration precautions, off oxygen, goal saturation 95% Seen by speech and swallow-purred /nector thick. but had very poor intake, so was using tpn underwent gtube 03/02/25, tolerating tube feedings Schizoaffective disorder with psychotic features depakote and valium IV to PO today adjusted clozapine 50 mg tid psych/care team prior to discharge. Diabetes II Lantus and SSI, Lovenox Full Code reason for continued hospitalization:starting tube feeds and need for placement doesn't need tele at this point Quality Stroke Does the patient have a stroke diagnosis?: No VTE Prior VTE?: No VTE Risk Level:: Medical - moderate - high VTE Device Contraindication: Treatment Not Indicated VTE Drug Contraindication: N/A - Med Ordered
[2025-03-09 11:17] VITALS: BP 100/46; PULSE 62; RESP 18; TEMP 35.9; O2SAT 93
--- NOTE | 2025-03-09 11:25 | MHC.CLN ---
F/U PT IS TOLERATING TF AT MAX GOAL RATE WITH LOW RESIDUALS PER NSG RECEIVING TF GLUCERNA 1.2 AT MAX GOAL RATE 70ML/HR WITH 240ML FREE WATER FLUSHES Q 8 HRS TO PROVIDE 2016KCALS (30KCALS/KG), 101G PROTEIN (1.5G/KG), 2072ML TOTAL WATER (31ML/KG) CONTINUE TO MONITOR TOLERANCE AND LYTES
[2025-03-09 11:53] LABS: Glucose, Whole Blood 201 mg/dL (60-115)
--- NOTE | 2025-03-09 12:56 | MHC.CM.PN ---
Addendum entered by Malia Mills RN 03/09/25 13:13: [facility] REVIEWING. Original Note: EMR REVIEWED, PT W/ALZHEIMERS DEMENTIA/SCHIZOAFFECTIVE D/O AND S/P PEG TUBE PLACEMENT, [facility] UNWILLING TO TAKE PT BACK D/T BEHAVIORS, CM CONTACTED ADMISSIONS AT [facility] WHO REPORT THEY WILL REVIEW PT AND FOLLOW-UP VIA PHONE, GARNAVILLO PROVIDED W/CM CONTACT NUMBER. EMMETT BARBOSA FROM [facility] WHO REPORTS WILL RESEND EMAIL W/PAPERWORK FOR CM TO FILL OUT AND CONFIRM THEY HAVE NOT BEEN WORKING ON PT'S CASE. PSYCH WAS FOLLOWING PT THROUGH 02/25, PT'S HOME DOSE OF CLOZARIL 300MG TID AND PT CURRENTLY ONLY ON 50MG TID, CM HAS REQUESTED HOSPITALIST HAVE PSYCH FOLLOW PT WILL NEED MED STABILIZATION AND LTC PLACEMENT. PT EVALUATED AND CLEARED BY LAURIE ON 03/06. [facility] REFERRAL PLACED, CM AWAITING BED OFFER, CM WILL CONT TO FOLLOW DC NEEDS.
[2025-03-09 14:59] VITALS: BP 119/58; PULSE 64; RESP 16; TEMP 36.1; O2SAT 98
[2025-03-09 16:14] LABS: Glucose, Whole Blood 228 mg/dL (60-115)
[2025-03-09 19:51] VITALS: BP 142/66; PULSE 68; RESP 16; TEMP 36.6; O2SAT 98
[2025-03-09 20:09] VITALS: BP 154/69; PULSE 70; RESP 18; TEMP 36.1; O2SAT 96
[2025-03-09 20:53] LABS: Glucose, Whole Blood 238 mg/dL (60-115)
[2025-03-10 03:55] VITALS: BP 120/56; PULSE 60; RESP 18; TEMP 36; O2SAT 96
[2025-03-10] MEDS: Omeprazole/Na Bicarb Oral Susp 20 MG/10 ML UD Cup G-TUBE (05:54)
[2025-03-10 07:54] LABS: Glucose, Whole Blood 214 mg/dL (60-115)
[2025-03-10 08:00] VITALS: BP 135/61; PULSE 59; RESP 16; TEMP 36.2; O2SAT 96
--- NOTE | 2025-03-10 08:45 | MHC.CM.PN ---
Addendum entered by Lor Galan 03/10/25 09:19: Call placed to [employer] business office- they verified that documents were forwarded to [facility] on Tuesday 03/06 for pt's [facility] LTC application. [facility] Button is Ly Manoloestella @ [phone] Original Note: This account underwriter placed call to Radha Vo regarding [facility]. She reports patient needed to spend down some funds- that was completed and all paperwork was submitted by [facility] on Sunday. She reports patient should have standard [facility] very shortly.
[2025-03-10] MEDS: Metoprolol Tartrate 12.5 MG HALFTAB PO ×2 (09:21→20:52)
[2025-03-10] MEDS: Valproic Acid (as Sodium Salt) 500 MG in Dextrose 5 % 50 ML 52.5 MG IV ×2 (09:30→19:45)
[2025-03-10 11:31] LABS: Glucose, Whole Blood 188 mg/dL (60-115)
--- NOTE | 2025-03-10 14:38 | MHC.CM.PN ---
THIS CM SPOKE WITH BOM AT [facility] AND OBTAINED COPY OF LTC APPLICATION TO BE ADDED TO RECORD. CM CHECKED WITH [facility] IN REGARDS TO REFERRAL, THE CIVIL ENGINEERING TECHNICIAN, SUKHDEV, STATES HE DID NOT RECEIVE, REFERRAL SENT AGAIN TO [phone] FOR REVIEW. PER SUKHDEV, [facility] DOES NOT ACCEPT MEDICARE SO WILL NEED A PAYER SOURCE. [facility] FOLLOWING PENDING COMPLETION OF MH CONVERSION TO STANDARD WELL.
[2025-03-10 15:10] VITALS: BP 111/58; PULSE 58; RESP 16; TEMP 36.1; O2SAT 96
[2025-03-10] MEDS: 0.9 % Sodium Chloride Flush 3 ML SYRINGE IVFLUSH ×2 (15:33→20:54)
[2025-03-10 16:04] LABS: Glucose, Whole Blood 212 mg/dL (60-115)
[2025-03-10 19:48] VITALS: BP 112/61; PULSE 72; RESP 18; TEMP 36; O2SAT 97
[2025-03-10 20:13] LABS: Glucose, Whole Blood 242 mg/dL (60-115)
[2025-03-11 03:23] VITALS: BP 106/53; PULSE 58; RESP 18; TEMP 35.8; O2SAT 96
[2025-03-11] MEDS: Omeprazole/Na Bicarb Oral Susp 20 MG/10 ML UD Cup G-TUBE (05:58)
[2025-03-11 07:28] LABS: Glucose, Whole Blood 233 mg/dL (60-115)
[2025-03-11 07:46] VITALS: BP 121/60; PULSE 64; RESP 18; TEMP 36.1; O2SAT 95
[2025-03-11] MEDS: Valproic Acid (as Sodium Salt) 500 MG in Dextrose 5 % 50 ML 52.5 MG IV ×2 (08:00→19:31)
[2025-03-11] MEDS: 0.9 % Sodium Chloride Flush 3 ML SYRINGE IVFLUSH ×3 (08:02→20:59)
[2025-03-11] MEDS: Metoprolol Tartrate 12.5 MG HALFTAB PO ×2 (08:42→20:58)
--- NOTE | 2025-03-11 11:30 | MHC.CM.PN ---
Patient with new PEG can not return to [facility]. [facility] is following. [facility] application needed for LTC was sent 03/06/25. DP STR transitioning to LTC via BLS.
[2025-03-11 11:41] LABS: Glucose, Whole Blood 190 mg/dL (60-115)
--- NOTE | 2025-03-11 12:26 | MHC.CLN ---
F/U CONTINUES NPO WITH TUBE FEED ORDER. TUBE FEEDING ON HOLD THIS AM DUE TO CONSTIPATION. WHEN ABLE, RESUME TUBE FEEDING GLUCERNA 1.2 AT MAX GOAL RATE 70ML/HR WITH 240ML FREE WATER FLUSHES Q 8 HRS TO PROVIDE 2016KCALS (30KCALS/KG), 101G PROTEIN (1.5G/KG), 2072ML TOTAL WATER (31ML/KG) CONTINUE TO MONITOR TOLERANCE AND LYTES
--- NOTE | 2025-03-11 14:47 | HO.WOUND ---
Wound Consult: follow up 69yr old? [place] [facility] [place]25 18:06- See progress notes and H&P for detailed history.? Patient skin assessed during P&I Data collection 02/20/25 and noted for Right heel redness - Stage 1 Pressure Injury. ? Follow up today No new topical recommendations needed at this time may continue with off loading heel from surface of bed with pillows and heel foam dressing to protect from friction and aid in pressure redistribution. Applied to both heels. Right heel 02/20/25 Right heel 02/23/25 Right Heel 03/03/25 Right Heel 03/11/25 Etiology: ?? Stage 1 Pressure Injury - appears to be resurfacing Measurements: 1.5cm x 1cm x 0cm Wound Bed: dry red pink slow to blanchable tissue - no epidermal lifting noted - not a blister Drainage / Odor: None Edges: ? attached well defined Coco wound: pink blanchable tissue dry callused noted ? No Induration, Fluctuance or Warmth noted Goals of Treatment: ? Off load pressure - skin prep applied along with foam dressing Left heel intact blanchable redness and preventative foam applied. Elevated off of bed surface with pillows. Recommendations: 1. Turn and Reposition every 2 hours and as needed for patient comfort.? Use pillows or wedges to support off loading positions. 2. Off Load all bony prominences with use of pillows and heel boots if needed.? Apply Preventative foams where needed. ? 3. Monitor for incontinence and moisture control, use barrier creams when needed for prevention and treatment. 4. Provide adequate and supplemental nutrition.? 5. Order or Continue low air loss mattress. 6. When applicable maintain blood glucose levels per Providers order. Bilateral Heels? - Elevate heels off of bed surface with pillows.? Float heels off of bed sruface with pillows.? Apply skin prep allow to dry.? Apply heel foam dressings, peel back and assess Q shift and change every 3 days and PRN. Re-consult wound care Nurse for wound deterioration or wound changes.
[2025-03-11 15:04] VITALS: BP 114/56; PULSE 59; RESP 20; TEMP 36.1; O2SAT 98
--- NOTE | 2025-03-11 16:01 | P.PNIM_ITS ---
Subjective Subjective Date of Service: 03/11/25 Interval History: Feeling constipated and has large bm's after bowel regimen and feels better Review of Systems Unable to obtain Physical Exam 2 Vital Signs: Vital Signs: Last Vital Signs Temp 97.0 F 03/11/25 15:04 Pulse 59 03/11/25 15:04 Resp 20 03/11/25 15:04 BP 114/56 L 03/11/25 15:04 Pulse Ox 98 03/11/25 15:04 O2 Del Method Room Air 03/11/25 15:04 O2 Flow Rate 3 03/07/25 23:35 BMI result Body Mass Index 23.3 Const: Other: Somnolent; nonverbal Resp: Other: Clear to auscultation bilaterally no rales rhonchi or wheezes Cardio: Other: No S4; positive S1-S2; no S3 murmurs rubs or gallops GI: Other: Soft nontender nondistended normoactive bowel sounds Extrem: Other: No edema bilaterally Objective Data Active Medications Acetaminophen (Acetaminophen 325 Mg Tablet) 650 mg PO Q6H PRN PRN Reason: Headache/Pain, Scale 1-10 Al Hydroxide/Mg Hydroxide (Magnesium Hydrox/Alum Hydrox 30 Ml Oral.Susp) 30 ml PO Q6H PRN PRN Reason: Heartburn/Nausea Calcium Carbonate (Calcium Carbonate 750 Mg Tab.Chew) 750 mg PO Q4H PRN PRN Reason: Heartburn Clozapine (Clozapine 25 Mg Tablet) 50 mg PO TID [facility] Last Admin: 03/11/25 15:26 Dose: 50 mg Documented By: STEPHANE Dextrose (Dextrose 50 % 25 Gm/50 Ml Syringe) 25 gm IVPUSH Q15M PRN; Protocol PRN Reason: per Hypoglycemia Standing Ord. Diazepam (Diazepam 2 Mg Tablet) 3 mg PO TID [facility] Last Admin: 03/11/25 15:25 Dose: 3 mg Documented By: STEPHANE Docusate Sodium (Docusate Sodium 100 Mg/10 Ml Liquid) 100 mg G-TUBE BID [facility] Last Admin: 03/11/25 08:42 Dose: 100 mg Documented By: STEPHANE Enoxaparin Sodium (Enoxaparin Sodium 40 Mg/0.4 Ml Syringe) 40 mg SUBCUT Q24H [facility] Last Admin: 03/11/25 08:42 Dose: 40 mg Documented By: STEPHANE Fluoxetine HCl (Fluoxetine Hcl 20 Mg Capsule) 40 mg PO BEDTIME NATE On Hold: 02/22/25 14:23 Last Admin: 02/21/25 22:23 Dose: Not Given Documented By: PAPITO Non-Admin Reason: pt refused Glucagon (Glucagon Hcl 1 Mg Vial) 1 mg IM Q20M PRN PRN Reason: low BG Glucose (Glucose Gel 15 Gm Gel..Gram.) 15 gm PO Q15M PRN; Protocol PRN Reason: per Hypoglycemia Standing Ord. Hydralazine HCl (Hydralazine Hcl 20 Mg/Ml Vial) 5 mg IVPUSH Q6H PRN; Protocol PRN Reason: htn Last Admin: 02/23/25 17:30 Dose: 5 mg Documented By: JAYME Valproic Acid 500 mg/ Dextrose 55 mls @ 52.5 mls/hr IV Q12H [facility] Last Infusion: 03/11/25 09:07 Dose: Infused Documented By: STEPHANE Insulin Glargine (Insulin Glargine,Hum.Rec.Anlog 100 Unit/Ml 10 Ml Vial) 26 unit SUBCUT DAILY [facility] On Hold: 03/10/25 09:00 Insulin Human Lispro (Insulin Lispro 100 Unit/Ml 3 Ml Vial) 0 unit SUBCUT QIDACHS [facility]; Protocol Last Admin: 03/11/25 12:00 Dose: Not Given Documented By: STEPHANE Non-Admin Reason: tube feeding held Magnesium Hydroxide (Milk Of Magnesia 30 Ml Oral.Susp) 30 ml PO DAILY PRN PRN Reason: Constipation Melatonin (Melatonin 3 Mg Tablet) 6 mg PO BEDTIME PRN PRN Reason: Insomnia Metoprolol Tartrate (Metoprolol Tartrate 12.5 Mg Halftab) 12.5 mg PO BID [facility]; Protocol Last Admin: 03/11/25 08:42 Dose: 12.5 mg Documented By: STEPHANE Naloxone HCl (Naloxone Hcl 0.4 Mg/Ml Vial) 0.04 mg IVPUSH Q5M PRN PRN Reason: Excessive sedation or RR < 8 Omeprazole (Omeprazole/Na Bicarb Oral Susp 20 Mg/10 Ml Ud Cup) 20 mg G-TUBE DAILY@0630 [facility] Last Admin: 03/11/25 05:58 Dose: 20 mg Documented By: SHINE Perphenazine (Perphenazine 2 Mg Tablet) 2 mg PO BID [facility] Last Admin: 03/11/25 08:42 Dose: 2 mg Documented By: STEPHANE Perphenazine (Perphenazine 4 Mg Tablet) 4 mg PO BID [facility] Last Admin: 03/11/25 08:42 Dose: 4 mg Documented By: STEPHANE Pharmacy Consult (Consult Rx Parenteral Nutrition Ordering) 1 each MISCELLANE DAILY PRN PRN Reason: Consult order Senna (Sennosides 8.6 Mg Tablet) 8.6 mg PO DAILY [facility] Last Admin: 03/11/25 08:42 Dose: 8.6 mg Documented By: STEPHANE Sodium Biphosphate/Sodium Phosphate (Sodium Phosphate,[place]-Dibasic 133 Ml Enema) 133 ml [place] DAILY PRN PRN Reason: Constipation Last Admin: 03/11/25 12:18 Dose: 133 ml Documented By: STEPHANE Sodium Chloride (0.9 % Sodium Chloride Flush 3 Ml Syringe) 3 ml IVFLUSH QSHIFT [facility] Last Admin: 03/11/25 08:02 Dose: 3 ml Documented By: STEPHANE Trazodone HCl (Trazodone Hcl 50 Mg Tablet) 50 mg PO BEDTIME MRX1 PRN PRN Reason: Insomnia Last Admin: 03/03/25 23:01 Dose: 50 mg Documented By: PAPITO Labs 03/04/25 06:46 03/06/25 06:31 Labs: Laboratory Results - last 24 hr 03/10/25 03/10/25 03/11/25 15:59 20:05 07:25 POC Glucose 212 H 242 H 233 H 03/11/25 11:37 POC Glucose 190 H Assessment and Plan (1) Schizoaffective disorder: Status: Acute Plan 69M PMH schizoaffective disorder with psychotic features, major depressive disorder, diabetes, GERD presented to the ED on 02/14/2025 for multiple falls. became hypoxic on 02/16/25 and treated for aspiration pneumonia Acute toxic metabolic encephalopathy and Acute hypoxic respiratory failure due to aspiration pneumonia completed IV Unasyn . blood cultures neg , weaned off O2 , aspiration precautions, off oxygen, goal saturation 95% Seen by speech and swallow-purred /nector thick. but had very poor intake, so was using tpn. Ultimately underwent Gtube 03/02/25, tolerating tube feedings Schizoaffective disorder with psychotic features depakote and valium IV to PO today adjusted clozapine 50 mg tid psych/care team prior to discharge. Diabetes II Lantus and SSI, Lovenox Full Code reason for continued hospitalization:starting tube feeds and need for placement doesn't need tele at this point Quality Stroke Does the patient have a stroke diagnosis?: No VTE Prior VTE?: No VTE Risk Level:: Medical - moderate - high VTE Device Contraindication: Treatment Not Indicated VTE Drug Contraindication: N/A - Med Ordered
[2025-03-11 16:29] LABS: Glucose, Whole Blood 211 mg/dL (60-115)
[2025-03-11 19:13] VITALS: BP 122/58; PULSE 63; RESP 20; TEMP 36.3; O2SAT 96
[2025-03-11 20:54] LABS: Glucose, Whole Blood 229 mg/dL (60-115)
[2025-03-12 04:00] VITALS: BP 115/58; PULSE 61; RESP 16; TEMP 36; O2SAT 95
[2025-03-12] MEDS: Omeprazole/Na Bicarb Oral Susp 20 MG/10 ML UD Cup G-TUBE (06:13)
[2025-03-12 09:06] VITALS: BP 116/55; PULSE 72; RESP 20; TEMP 36.3; O2SAT 95
[2025-03-12] MEDS: Valproic Acid (as Sodium Salt) 500 MG in Dextrose 5 % 50 ML 52.5 MG IV ×2 (09:22→19:55)
[2025-03-12] MEDS: 0.9 % Sodium Chloride Flush 3 ML SYRINGE IVFLUSH ×3 (09:23→22:35)
[2025-03-12] MEDS: Metoprolol Tartrate 12.5 MG HALFTAB PO (09:28)
--- NOTE | 2025-03-12 09:46 | HO.PM.IMPN ---
Subjective Subjective Date of Service: 03/12/25 Interval History: No new issues, asking to eat Review of Systems Unable to obtain Physical Exam Vital Signs: Vital Signs: Last Vital Signs Temp 97.4 F 03/12/25 09:06 Pulse 72 03/12/25 09:06 Resp 20 03/12/25 09:06 BP 116/55 L 03/12/25 09:06 Pulse Ox 95 03/12/25 09:06 O2 Del Method Room Air 03/12/25 09:06 O2 Flow Rate 3 03/07/25 23:35 BMI result Body Mass Index 23.3 Const: Other: Awake , no distress want to eat no new changes in exam Resp: Other: Clear to auscultation bilaterally no rales rhonchi or wheezes Cardio: Other: No S4; positive S1-S2; no S3 murmurs rubs or gallops GI: Other: Soft nontender nondistended normoactive bowel sounds Extrem: Other: No edema bilaterally Objective Data Active Medications Acetaminophen (Acetaminophen 325 Mg Tablet) 650 mg PO Q6H PRN PRN Reason: Headache/Pain, Scale 1-10 Al Hydroxide/Mg Hydroxide (Magnesium Hydrox/Alum Hydrox 30 Ml Oral.Susp) 30 ml PO Q6H PRN PRN Reason: Heartburn/Nausea Calcium Carbonate (Calcium Carbonate 750 Mg Tab.Chew) 750 mg PO Q4H PRN PRN Reason: Heartburn Clozapine (Clozapine 25 Mg Tablet) 50 mg PO TID [facility] Last Admin: 03/12/25 09:29 Dose: 50 mg Documented By: HOLLIE Dextrose (Dextrose 50 % 25 Gm/50 Ml Syringe) 25 gm IVPUSH Q15M PRN; Protocol PRN Reason: per Hypoglycemia Standing Ord. Diazepam (Diazepam 2 Mg Tablet) 3 mg PO TID [facility] Last Admin: 03/12/25 09:27 Dose: 3 mg Documented By: HOLLIE Docusate Sodium (Docusate Sodium 100 Mg/10 Ml Liquid) 100 mg G-TUBE BID [facility] Last Admin: 03/12/25 09:27 Dose: 100 mg Documented By: HOLLIE Enoxaparin Sodium (Enoxaparin Sodium 40 Mg/0.4 Ml Syringe) 40 mg SUBCUT Q24H [facility] Last Admin: 03/12/25 09:19 Dose: 40 mg Documented By: HOLLIE Fluoxetine HCl (Fluoxetine Hcl 20 Mg Capsule) 40 mg PO BEDTIME NATE On Hold: 02/22/25 14:23 Last Admin: 02/21/25 22:23 Dose: Not Given Documented By: PAPITO Non-Admin Reason: pt refused Glucagon (Glucagon Hcl 1 Mg Vial) 1 mg IM Q20M PRN PRN Reason: low BG Glucose (Glucose Gel 15 Gm Gel..Gram.) 15 gm PO Q15M PRN; Protocol PRN Reason: per Hypoglycemia Standing Ord. Hydralazine HCl (Hydralazine Hcl 20 Mg/Ml Vial) 5 mg IVPUSH Q6H PRN; Protocol PRN Reason: htn Last Admin: 02/23/25 17:30 Dose: 5 mg Documented By: JAYME Valproic Acid 500 mg/ Dextrose 55 mls @ 52.5 mls/hr IV Q12H [facility] Last Admin: 03/12/25 09:22 Dose: 52.5 mls/hr Documented By: HOLLIE Insulin Glargine (Insulin Glargine,Hum.Rec.Anlog 100 Unit/Ml 10 Ml Vial) 26 unit SUBCUT DAILY [facility] On Hold: 03/10/25 09:00 Insulin Human Lispro (Insulin Lispro 100 Unit/Ml 3 Ml Vial) 0 unit SUBCUT QIDACHS [facility]; Protocol Last Admin: 03/12/25 09:26 Dose: Not Given Documented By: HOLLIE Non-Admin Reason: patient refused BS to be checked Magnesium Hydroxide (Milk Of Magnesia 30 Ml Oral.Susp) 30 ml PO DAILY PRN PRN Reason: Constipation Melatonin (Melatonin 3 Mg Tablet) 6 mg PO BEDTIME PRN PRN Reason: Insomnia Metoprolol Tartrate (Metoprolol Tartrate 12.5 Mg Halftab) 12.5 mg PO BID [facility]; Protocol Last Admin: 03/12/25 09:28 Dose: 12.5 mg Documented By: HOLLIE Naloxone HCl (Naloxone Hcl 0.4 Mg/Ml Vial) 0.04 mg IVPUSH Q5M PRN PRN Reason: Excessive sedation or RR < 8 Omeprazole (Omeprazole/Na Bicarb Oral Susp 20 Mg/10 Ml Ud Cup) 20 mg G-TUBE DAILY@0630 [facility] Last Admin: 03/12/25 06:13 Dose: 20 mg Documented By: LYSSheryl Perphenazine (Perphenazine 2 Mg Tablet) 2 mg PO BID [facility] Last Admin: 03/12/25 09:28 Dose: 2 mg Documented By: HOLLIE Perphenazine (Perphenazine 4 Mg Tablet) 4 mg PO BID [facility] Last Admin: 03/12/25 09:28 Dose: 4 mg Documented By: HOLLIE Pharmacy Consult (Consult Rx Parenteral Nutrition Ordering) 1 each MISCELLANE DAILY PRN PRN Reason: Consult order Senna (Sennosides 8.6 Mg Tablet) 8.6 mg PO DAILY [facility] Last Admin: 03/12/25 09:28 Dose: 8.6 mg Documented By: HOLLIE Sodium Biphosphate/Sodium Phosphate (Sodium Phosphate,[place]-Dibasic 133 Ml Enema) 133 ml [place] DAILY PRN PRN Reason: Constipation Last Admin: 03/11/25 12:18 Dose: 133 ml Documented By: STEPHANE Sodium Chloride (0.9 % Sodium Chloride Flush 3 Ml Syringe) 3 ml IVFLUSH QSHIFT [facility] Last Admin: 03/12/25 09:23 Dose: 3 ml Documented By: HOLLIE Trazodone HCl (Trazodone Hcl 50 Mg Tablet) 50 mg PO BEDTIME MRX1 PRN PRN Reason: Insomnia Last Admin: 03/03/25 23:01 Dose: 50 mg Documented By: PAPITO Labs 03/04/25 06:46 03/06/25 06:31 Labs: Laboratory Results - last 24 hr 03/11/25 03/11/25 03/11/25 11:37 16:18 20:49 POC Glucose 190 H 211 H 229 H Assessment and Plan (1) Schizoaffective disorder: Status: Acute Plan 69M PMH schizoaffective disorder with psychotic features, major depressive disorder, diabetes, GERD presented to the ED on 02/14/2025 for multiple falls. became hypoxic on 02/16/25 acute toxic metabolic encephalopathy and Acute hypoxic respiratory failure due to aspiration pneumonia completed IV Unasyn . blood cultures neg , weaned O2 as tolerated, aspiration precautions, off oxygen, goal saturation 95% Seen by speech and swallow-purred /nector thick. but had very poor intake, so was using tpn underwent gtube 03/02/25. Tolerating tube feed. Will reattempt oral feed after [employer] since asking to eat Schizoaffective disorder with psychotic features he intermittently refuses psych medsand vital/rx continue present meds: Fuoxetine, Trilafon, depakote, Clozaril, Valiui Psych follow up PRN Diabetes Basal bolus insulin htn, low normal. No meds DVT prophylaxis: Lovenox Full code Quality Stroke Does the patient have a stroke diagnosis?: No VTE Prior VTE?: No VTE Risk Level:: Medical - moderate - high VTE Device Contraindication: Treatment Not Indicated VTE Drug Contraindication: N/A - Med Ordered
[2025-03-12 11:36] LABS: Glucose, Whole Blood 222 mg/dL (60-115)
--- NOTE | 2025-03-12 13:59 | MHC.CM.PN ---
CM PLACED CALL TO [facility] SHALONDA KIM TO INQUIRE ABOUT STATUS OF MH CATHERINE/CONVERSION TO MH STANDARD. REQUESTED A RETURN CALL. NO BED OFFERS OF YET.
[2025-03-12 16:00] VITALS: BP 126/59; PULSE 62; RESP 20; TEMP 36.1; O2SAT 96
[2025-03-12 16:30] LABS: Glucose, Whole Blood 202 mg/dL (60-115)
[2025-03-12 19:53] VITALS: BP 114/69; PULSE 58; RESP 18; TEMP 36.2; O2SAT 95
[2025-03-12 20:01] LABS: Glucose, Whole Blood 182 mg/dL (60-115)
[2025-03-13 04:00] VITALS: BP 137/63; PULSE 71; RESP 18; TEMP 36.3; O2SAT 96
[2025-03-13] MEDS: Omeprazole/Na Bicarb Oral Susp 20 MG/10 ML UD Cup G-TUBE (06:24)
[2025-03-13 06:50] LABS: Neut%MD 49.0 %; WBCANC 5.1 X10*3/uL
[2025-03-13 07:54] LABS: Glucose, Whole Blood 225 mg/dL (60-115)
[2025-03-13 08:00] VITALS: BP 129/61; PULSE 71; RESP 17; TEMP 36.2; O2SAT 94
[2025-03-13] MEDS: Valproic Acid (as Sodium Salt) 500 MG in Dextrose 5 % 50 ML 52.5 MG IV ×2 (08:17→19:40)
[2025-03-13] MEDS: 0.9 % Sodium Chloride Flush 3 ML SYRINGE IVFLUSH ×3 (08:18→20:46)
[2025-03-13] MEDS: Metoprolol Tartrate 12.5 MG HALFTAB PO ×2 (08:28→20:46)
--- NOTE | 2025-03-13 10:07 | HO.PM.IMPN ---
Subjective Subjective Date of Service: 03/13/25 Interval History: No new issues, did ok with swallow test and will add NDD2 and nectar thick liquid Review of Systems Unable to obtain Physical Exam Vital Signs: Vital Signs: Last Vital Signs Temp 97.1 F 03/13/25 08:00 Pulse 71 03/13/25 08:00 Resp 17 03/13/25 08:00 BP 129/61 03/13/25 08:00 Pulse Ox 94 03/13/25 08:00 O2 Del Method Room Air 03/13/25 08:00 O2 Flow Rate 3 03/07/25 23:35 BMI result Body Mass Index 23.3 Const: Other: Awake , no distress want to eat no new changes in exam Resp: Other: Clear to auscultation bilaterally no rales rhonchi or wheezes Cardio: Other: No S4; positive S1-S2; no S3 murmurs rubs or gallops GI: Other: Soft nontender nondistended normoactive bowel sounds Extrem: Other: No edema bilaterally Objective Data Active Medications Acetaminophen (Acetaminophen 325 Mg Tablet) 650 mg PO Q6H PRN PRN Reason: Headache/Pain, Scale 1-10 Al Hydroxide/Mg Hydroxide (Magnesium Hydrox/Alum Hydrox 30 Ml Oral.Susp) 30 ml PO Q6H PRN PRN Reason: Heartburn/Nausea Calcium Carbonate (Calcium Carbonate 750 Mg Tab.Chew) 750 mg PO Q4H PRN PRN Reason: Heartburn Clozapine (Clozapine 25 Mg Tablet) 50 mg PO TID [facility] Last Admin: 03/13/25 08:27 Dose: 50 mg Documented By: HOLLIE Dextrose (Dextrose 50 % 25 Gm/50 Ml Syringe) 25 gm IVPUSH Q15M PRN; Protocol PRN Reason: per Hypoglycemia Standing Ord. Diazepam (Diazepam 2 Mg Tablet) 3 mg PO TID [facility] Last Admin: 03/13/25 08:27 Dose: 3 mg Documented By: HOLLIE Docusate Sodium (Docusate Sodium 100 Mg/10 Ml Liquid) 100 mg G-TUBE BID [facility] Last Admin: 03/13/25 08:27 Dose: 100 mg Documented By: HOLLIE Enoxaparin Sodium (Enoxaparin Sodium 40 Mg/0.4 Ml Syringe) 40 mg SUBCUT Q24H [facility] Last Admin: 03/13/25 08:26 Dose: 40 mg Documented By: HOLLIE Fluoxetine HCl (Fluoxetine Hcl 20 Mg Capsule) 40 mg PO BEDTIME NATE On Hold: 02/22/25 14:23 Last Admin: 02/21/25 22:23 Dose: Not Given Documented By: PAPITO Non-Admin Reason: pt refused Glucagon (Glucagon Hcl 1 Mg Vial) 1 mg IM Q20M PRN PRN Reason: low BG Glucose (Glucose Gel 15 Gm Gel..Gram.) 15 gm PO Q15M PRN; Protocol PRN Reason: per Hypoglycemia Standing Ord. Hydralazine HCl (Hydralazine Hcl 20 Mg/Ml Vial) 5 mg IVPUSH Q6H PRN; Protocol PRN Reason: htn Last Admin: 02/23/25 17:30 Dose: 5 mg Documented By: JAYME Valproic Acid 500 mg/ Dextrose 55 mls @ 52.5 mls/hr IV Q12H [facility] Last Infusion: 03/13/25 09:25 Dose: Infused Documented By: HOLLIE Insulin Glargine (Insulin Glargine,Hum.Rec.Anlog 100 Unit/Ml 10 Ml Vial) 30 unit SUBCUT DAILY [facility] Insulin Glargine (Insulin Glargine,Hum.Rec.Anlog 100 Unit/Ml 10 Ml Vial) 4 unit SUBCUT ONCE ONE Stop: 03/13/25 10:08 Insulin Human Lispro (Insulin Lispro 100 Unit/Ml 3 Ml Vial) 0 unit SUBCUT QIDACHS [facility]; Protocol Last Admin: 03/13/25 08:46 Dose: 4 unit Documented By: HOLLIE Magnesium Hydroxide (Milk Of Magnesia 30 Ml Oral.Susp) 30 ml PO DAILY PRN PRN Reason: Constipation Melatonin (Melatonin 3 Mg Tablet) 6 mg PO BEDTIME PRN PRN Reason: Insomnia Metoprolol Tartrate (Metoprolol Tartrate 12.5 Mg Halftab) 12.5 mg PO BID [facility]; Protocol Last Admin: 03/13/25 08:28 Dose: 12.5 mg Documented By: HOLLIE Naloxone HCl (Naloxone Hcl 0.4 Mg/Ml Vial) 0.04 mg IVPUSH Q5M PRN PRN Reason: Excessive sedation or RR < 8 Omeprazole (Omeprazole/Na Bicarb Oral Susp 20 Mg/10 Ml Ud Cup) 20 mg G-TUBE DAILY@0630 [facility] Last Admin: 03/13/25 06:24 Dose: 20 mg Documented By: ROMAIN Perphenazine (Perphenazine 2 Mg Tablet) 2 mg PO BID [facility] Last Admin: 03/13/25 08:28 Dose: 2 mg Documented By: HOLLIE Perphenazine (Perphenazine 4 Mg Tablet) 4 mg PO BID [facility] Last Admin: 03/13/25 08:28 Dose: 4 mg Documented By: HOLLIE Pharmacy Consult (Consult Rx Parenteral Nutrition Ordering) 1 each MISCELLANE DAILY PRN PRN Reason: Consult order Senna (Sennosides 8.6 Mg Tablet) 8.6 mg PO DAILY [facility] Last Admin: 03/13/25 08:28 Dose: 8.6 mg Documented By: HOLLIE Sodium Biphosphate/Sodium Phosphate (Sodium Phosphate,[place]-Dibasic 133 Ml Enema) 133 ml [place] DAILY PRN PRN Reason: Constipation Last Admin: 03/11/25 12:18 Dose: 133 ml Documented By: STEPHANE Sodium Chloride (0.9 % Sodium Chloride Flush 3 Ml Syringe) 3 ml IVFLUSH QSHIFT [facility] Last Admin: 03/13/25 08:18 Dose: 3 ml Documented By: HOLLIE Trazodone HCl (Trazodone Hcl 50 Mg Tablet) 50 mg PO BEDTIME MRX1 PRN PRN Reason: Insomnia Last Admin: 03/03/25 23:01 Dose: 50 mg Documented By: PAPITO Labs 03/04/25 06:46 03/06/25 06:31 Labs: Laboratory Results - last 24 hr 03/12/25 03/12/25 03/12/25 11:30 16:18 19:57 Absolute Neuts (auto) Hold Purple Top POC Glucose 222 H 202 H 182 H 03/13/25 03/13/25 06:06 07:48 Absolute Neuts (auto) 2.5 Hold Purple Top SEE NOTE POC Glucose 225 H Assessment and Plan (1) Schizoaffective disorder: Status: Acute Plan 69M PMH schizoaffective disorder with psychotic features, major depressive disorder, diabetes, GERD presented to the ED on 02/14/2025 for multiple falls. became hypoxic on 02/16/25 acute toxic metabolic encephalopathy and Acute hypoxic respiratory failure due to aspiration pneumonia completed IV Unasyn . blood cultures neg , weaned O2 as tolerated, aspiration precautions, off oxygen, goal saturation 95% Seen by speech and swallow-purred /nector thick. but had very poor intake, so was using tpn underwent gtube 03/02/25. Tolerating tube feed. oral feed with NDD2 and [place] thick Schizoaffective disorder with psychotic features he intermittently refuses psych medsand vital/rx continue present meds: Fuoxetine, Trilafon, depakote, Clozaril, Valiui Psych follow up PRN Diabetes, uncontrolled increase lantus to 30, continue ssi htn, low normal. No meds DVT prophylaxis: Lovenox Full code Quality Stroke Does the patient have a stroke diagnosis?: No VTE Prior VTE?: No VTE Risk Level:: Medical - moderate - high VTE Device Contraindication: Treatment Not Indicated VTE Drug Contraindication: N/A - Med Ordered
[2025-03-13] MEDS: Insulin Glargine,Hum.rec.anlog 100 UNIT/ML 10 ML VIAL SUBCUT (10:49)
[2025-03-13 11:44] LABS: Glucose, Whole Blood 246 mg/dL (60-115)
--- NOTE | 2025-03-13 12:28 | MHC.CLN ---
F/U DIET RX DIABETIC 2000 KCALS, GROUND CONSISTENCY WITH NECTAR THICK LIQUIDS. DIET ADDED THIS AM. CONTINUE TUBE FEED RX: TUBE FEEDING GLUCERNA 1.2 AT MAX GOAL RATE 70ML/HR WITH 240ML FREE WATER FLUSHES Q 8 HRS TO PROVIDE 2016KCALS (30KCALS/KG), 101G PROTEIN (1.5G/KG), 2072ML TOTAL WATER (31ML/KG) CONTINUE TO MONITOR PO INTAKE, TUBE FEED TOLERANCE AND ADJUST TUBE FEED FOR PO INTAKE.
--- NOTE | 2025-03-13 13:36 | MHC.SL.SWA ---
Speech Pathologist Impression: Risk of Aspiration d/t Mental Status, Oral Phase Dysphagia w/ Lack of Teeth Dysphasia Diet Status: Recommend GROUND solids (NDD2) with NECTAR THICK juice, no straw/cup sip only, pills crushed in puree. Liquid Consistency and Strategies for Safe Swallow: Liquid Intake Recommendation: [place] Thick Liquid Intake Strategies: Small Sips No Straws Solid Food Consistency: Dietary Recommendations: Grnd/Mech Altered (NDD2) Additional Modifications to Solid Foods: LANDING WORKER notified RD, RN, & MD LANDING WORKER previously recommending safety tray: REMOVE KNIFE and FORK from tray if present, leave spoon. Open all items and prepare tray, orient patient to tray. Oral Medication Intake: Crushed with Puree Please contact the pharmacy regarding appropriate crushable or liquid drug formulations that are available whenever modified delivery is recommended. Compensatory Strategies and Precautions to be Taken for Safe Swallow: Sitting Upright (90 deg) No Straw Liquids from Cup Small Bites and Sips Alternate Liquids/Solids Supervision While Eating and Drinking for Safe Swallow: Direct Supervision (1:1) Foods to Avoid: Tough, difficult to chew solids. Swallowing Recommended Treatments: Compens. Strategy Educat. Recommendation for Speech: Inpatient Speech Therapy Fire Fighter Clinican/Clinical Fellow: No Supervisory Statement: I have reviewed and agree with the student/clinical fellow's documentation: N/A Speech Language Pathologist: Tami Schultz M.A., CCC-LANDING WORKER
--- NOTE | 2025-03-13 13:40 | MHC.CM.PN ---
CM CALLED AND SPOKE WITH GUARDIAN SHALONDA KIM REGARDING MH CONVERSION TO MH STANDARD. SHALONDA HAS NOT YET RECEIVED ANY NEW INFORMATION ON THE CONVERSION BUT WILL KEEP US UPDATED WHEN SHE DOES. LAVON WILL CONTINUE TO FOLLOW.
[2025-03-13 15:00] VITALS: BP 120/56; PULSE 64; RESP 18; TEMP 36.3; O2SAT 97
--- NOTE | 2025-03-13 16:32 | PC.NURSE ---
Tube feeding on hold for now,continue with water flush per Dr. Kamara
[2025-03-13 16:37] LABS: Glucose, Whole Blood 259 mg/dL (60-115)
[2025-03-13 19:47] VITALS: BP 114/56; PULSE 70; RESP 18; TEMP 36.4; O2SAT 96
[2025-03-13 19:52] LABS: Glucose, Whole Blood 253 mg/dL (60-115)
[2025-03-14 04:00] VITALS: BP 131/63; PULSE 71; RESP 17; TEMP 35.7; O2SAT 95
[2025-03-14] MEDS: Omeprazole/Na Bicarb Oral Susp 20 MG/10 ML UD Cup G-TUBE (06:43)
[2025-03-14 07:38] VITALS: BP 135/63; PULSE 70; RESP 18; TEMP 36.3; O2SAT 94
[2025-03-14 08:05] LABS: Glucose, Whole Blood 164 mg/dL (60-115)
[2025-03-14] MEDS: Valproic Acid (as Sodium Salt) 500 MG in Dextrose 5 % 50 ML 52.5 MG IV ×2 (08:28→20:47)
[2025-03-14] MEDS: 0.9 % Sodium Chloride Flush 3 ML SYRINGE IVFLUSH ×2 (08:30→15:52)
[2025-03-14] MEDS: Metoprolol Tartrate 12.5 MG HALFTAB PO ×2 (08:31→21:12)
--- NOTE | 2025-03-14 09:10 | HO.PM.IMPN ---
Subjective Subjective Date of Service: 03/14/25 Interval History: No new issues, so far tolerating diet Review of Systems Unable to obtain Physical Exam Vital Signs: Vital Signs: Last Vital Signs Temp 97.3 F 03/14/25 07:38 Pulse 70 03/14/25 07:38 Resp 18 03/14/25 07:38 BP 135/63 03/14/25 07:38 Pulse Ox 94 03/14/25 07:38 O2 Del Method Room Air 03/14/25 07:38 O2 Flow Rate 3 03/07/25 23:35 BMI result Body Mass Index 23.3 Const: Other: Awake , no distress want to eat no new changes in exam Resp: Other: Clear to auscultation bilaterally no rales rhonchi or wheezes Cardio: Other: No S4; positive S1-S2; no S3 murmurs rubs or gallops GI: Other: Soft nontender nondistended normoactive bowel sounds Extrem: Other: No edema bilaterally Objective Data Active Medications Acetaminophen (Acetaminophen 325 Mg Tablet) 650 mg PO Q6H PRN PRN Reason: Headache/Pain, Scale 1-10 Al Hydroxide/Mg Hydroxide (Magnesium Hydrox/Alum Hydrox 30 Ml Oral.Susp) 30 ml PO Q6H PRN PRN Reason: Heartburn/Nausea Calcium Carbonate (Calcium Carbonate 750 Mg Tab.Chew) 750 mg PO Q4H PRN PRN Reason: Heartburn Clozapine (Clozapine 25 Mg Tablet) 50 mg PO TID [facility] Last Admin: 03/14/25 08:31 Dose: 50 mg Documented By: KERRI Dextrose (Dextrose 50 % 25 Gm/50 Ml Syringe) 25 gm IVPUSH Q15M PRN; Protocol PRN Reason: per Hypoglycemia Standing Ord. Docusate Sodium (Docusate Sodium 100 Mg/10 Ml Liquid) 100 mg G-TUBE BID [facility] Last Admin: 03/14/25 08:31 Dose: 100 mg Documented By: KERRI Enoxaparin Sodium (Enoxaparin Sodium 40 Mg/0.4 Ml Syringe) 40 mg SUBCUT Q24H [facility] Last Admin: 03/14/25 08:30 Dose: 40 mg Documented By: KERRI Fluoxetine HCl (Fluoxetine Hcl 20 Mg Capsule) 40 mg PO BEDTIME NATE On Hold: 02/22/25 14:23 Last Admin: 02/21/25 22:23 Dose: Not Given Documented By: PAPITO Non-Admin Reason: pt refused Glucagon (Glucagon Hcl 1 Mg Vial) 1 mg IM Q20M PRN PRN Reason: low BG Glucose (Glucose Gel 15 Gm Gel..Gram.) 15 gm PO Q15M PRN; Protocol PRN Reason: per Hypoglycemia Standing Ord. Hydralazine HCl (Hydralazine Hcl 20 Mg/Ml Vial) 5 mg IVPUSH Q6H PRN; Protocol PRN Reason: htn Last Admin: 02/23/25 17:30 Dose: 5 mg Documented By: JAYME Valproic Acid 500 mg/ Dextrose 55 mls @ 52.5 mls/hr IV Q12H [facility] Last Admin: 03/14/25 08:28 Dose: 52.5 mls/hr Documented By: KERRI Insulin Glargine (Insulin Glargine,Hum.Rec.Anlog 100 Unit/Ml 10 Ml Vial) 30 unit SUBCUT DAILY [facility] On Hold: 03/14/25 09:00 Insulin Human Lispro (Insulin Lispro 100 Unit/Ml 3 Ml Vial) 0 unit SUBCUT QIDACHS [facility]; Protocol Last Admin: 03/14/25 08:26 Dose: 2 unit Documented By: KERRI Magnesium Hydroxide (Milk Of Magnesia 30 Ml Oral.Susp) 30 ml PO DAILY PRN PRN Reason: Constipation Melatonin (Melatonin 3 Mg Tablet) 6 mg PO BEDTIME PRN PRN Reason: Insomnia Metoprolol Tartrate (Metoprolol Tartrate 12.5 Mg Halftab) 12.5 mg PO BID [facility]; Protocol Last Admin: 03/14/25 08:31 Dose: 12.5 mg Documented By: KERRI Naloxone HCl (Naloxone Hcl 0.4 Mg/Ml Vial) 0.04 mg IVPUSH Q5M PRN PRN Reason: Excessive sedation or RR < 8 Nystatin (Nystatin Powder 15 Gm Bottle) 1 appl TOPICAL BID [facility]; Protocol Last Admin: 03/14/25 08:32 Dose: 1 appl Documented By: KERRI Omeprazole (Omeprazole/Na Bicarb Oral Susp 20 Mg/10 Ml Ud Cup) 20 mg G-TUBE DAILY@0630 [facility] Last Admin: 03/14/25 06:43 Dose: 20 mg Documented By: LYSSheryl Perphenazine (Perphenazine 2 Mg Tablet) 2 mg PO BID [facility] Last Admin: 03/14/25 08:31 Dose: 2 mg Documented By: KERRI Perphenazine (Perphenazine 4 Mg Tablet) 4 mg PO BID [facility] Last Admin: 03/14/25 08:31 Dose: 4 mg Documented By: KERRI Pharmacy Consult (Consult Rx Parenteral Nutrition Ordering) 1 each MISCELLANE DAILY PRN PRN Reason: Consult order Senna (Sennosides 8.6 Mg Tablet) 8.6 mg PO DAILY [facility] Last Admin: 03/14/25 08:31 Dose: 8.6 mg Documented By: KERRI Sodium Biphosphate/Sodium Phosphate (Sodium Phosphate,[place]-Dibasic 133 Ml Enema) [address] DAILY PRN PRN Reason: Constipation Last Admin: 03/11/25 12:18 Dose: 133 ml Documented By: STEPHANE Sodium Chloride (0.9 % Sodium Chloride Flush 3 Ml Syringe) 3 ml IVFLUSH QSHIFT [facility] Last Admin: 03/14/25 08:30 Dose: 3 ml Documented By: KERRI Trazodone HCl (Trazodone Hcl 50 Mg Tablet) 50 mg PO BEDTIME MRX1 PRN PRN Reason: Insomnia Last Admin: 03/03/25 23:01 Dose: 50 mg Documented By: PAPITO Labs 03/04/25 06:46 03/06/25 06:31 Labs: Laboratory Results - last 24 hr 03/13/25 03/13/25 03/13/25 11:39 16:33 19:43 POC Glucose 246 H 259 H 253 H 03/14/25 08:00 POC Glucose 164 H Assessment and Plan (1) Schizoaffective disorder: Status: Acute Plan 69M PMH schizoaffective disorder with psychotic features, major depressive disorder, diabetes, GERD presented to the ED on 02/14/2025 for multiple falls. became hypoxic on 02/16/25 acute toxic metabolic encephalopathy and Acute hypoxic respiratory failure due to aspiration pneumonia completed IV Unasyn . blood cultures neg , weaned O2 as tolerated, aspiration precautions, off oxygen, goal saturation 95% Seen by speech and swallow-purred /nector thick. but had very poor intake, so was using tpn underwent gtube 03/02/25. holding tube feed whiel able to ate. Oral feed with NDD2 and [place] thick Schizoaffective disorder with psychotic features he intermittently refuses psych medsand vital/rx continue present meds: Fuoxetine, Trilafon, depakote, Clozaril, Valiui Psych follow up PRN Diabetes, uncontrolled increase lantus to 30, continue ssi htn, low normal. No meds DVT prophylaxis: Lovenox Full code Quality Stroke Does the patient have a stroke diagnosis?: No VTE Prior VTE?: No VTE Risk Level:: Medical - moderate - high VTE Device Contraindication: Treatment Not Indicated VTE Drug Contraindication: N/A - Med Ordered
--- NOTE | 2025-03-14 10:30 | PC.NURSE ---
MD huang with Camera for patient safety. Nursing board Says SI, no SI coverage needed, cleared by care team for LTC Placement, no need for inpatient psych.
[2025-03-14 12:33] LABS: Glucose, Whole Blood 166 mg/dL (60-115)
[2025-03-14 15:49] VITALS: BP 133/63; PULSE 68; RESP 18; TEMP 36.2; O2SAT 97
[2025-03-14 15:53] VITALS: BP 124/60; PULSE 80; RESP 18; TEMP 37.1; O2SAT 96
[2025-03-14 16:49] LABS: Glucose, Whole Blood 235 mg/dL (60-115)
[2025-03-14 20:00] VITALS: BP 126/63; PULSE 72; RESP 17; TEMP 35.9; O2SAT 96
[2025-03-14 21:03] LABS: Glucose, Whole Blood 220 mg/dL (60-115)
[2025-03-14 23:24] LABS: Glucose, Whole Blood 222 mg/dL (60-115)
[2025-03-15] MEDS: 0.9 % Sodium Chloride Flush 3 ML SYRINGE IVFLUSH ×3 (00:01→20:38)
[2025-03-15 04:00] VITALS: BP 124/58; PULSE 65; RESP 18; TEMP 36.6; O2SAT 96
[2025-03-15] MEDS: Omeprazole/Na Bicarb Oral Susp 20 MG/10 ML UD Cup G-TUBE (06:32)
[2025-03-15 07:58] LABS: Glucose, Whole Blood 151 mg/dL (60-115)
[2025-03-15 08:00] VITALS: BP 122/59; PULSE 68; RESP 18; TEMP 36.1; O2SAT 95
[2025-03-15] MEDS: Valproic Acid (as Sodium Salt) 500 MG in Dextrose 5 % 50 ML 52.5 MG IV ×2 (08:54→20:30)
[2025-03-15] MEDS: Metoprolol Tartrate 12.5 MG HALFTAB PO ×2 (08:56→20:29)
--- NOTE | 2025-03-15 09:03 | HO.PM.IMPN ---
Subjective Subjective Date of Service: 03/15/25 Interval History: No new issues, so mouth feed and tube feed off No behavior issues and sitter is been off for now Review of Systems Unable to obtain Physical Exam Vital Signs: Vital Signs: Last Vital Signs Temp 96.9 F 03/15/25 08:00 Pulse 68 03/15/25 08:00 Resp 18 03/15/25 08:00 BP 122/59 L 03/15/25 08:00 Pulse Ox 95 03/15/25 08:00 O2 Del Method Room Air 03/15/25 08:00 O2 Flow Rate 3 03/07/25 23:35 BMI result Body Mass Index 23.3 Const: Other: Awake , no distress want to eat no new changes in exam Resp: Other: Clear to auscultation bilaterally no rales rhonchi or wheezes Cardio: Other: No S4; positive S1-S2; no S3 murmurs rubs or gallops GI: Other: Soft nontender nondistended normoactive bowel sounds Extrem: Other: No edema bilaterally Objective Data Active Medications Acetaminophen (Acetaminophen 325 Mg Tablet) 650 mg PO Q6H PRN PRN Reason: Headache/Pain, Scale 1-10 Al Hydroxide/Mg Hydroxide (Magnesium Hydrox/Alum Hydrox 30 Ml Oral.Susp) 30 ml PO Q6H PRN PRN Reason: Heartburn/Nausea Calcium Carbonate (Calcium Carbonate 750 Mg Tab.Chew) 750 mg PO Q4H PRN PRN Reason: Heartburn Clozapine (Clozapine 25 Mg Tablet) 50 mg PO TID [facility] Last Admin: 03/15/25 08:55 Dose: 50 mg Documented By: KERRI Dextrose (Dextrose 50 % 25 Gm/50 Ml Syringe) 25 gm IVPUSH Q15M PRN; Protocol PRN Reason: per Hypoglycemia Standing Ord. Docusate Sodium (Docusate Sodium 100 Mg/10 Ml Liquid) 100 mg G-TUBE BID [facility] Last Admin: 03/15/25 09:03 Dose: Not Given Documented By: KERRI Non-Admin Reason: Patient Refused Enoxaparin Sodium (Enoxaparin Sodium 40 Mg/0.4 Ml Syringe) 40 mg SUBCUT Q24H [facility] Last Admin: 03/15/25 09:01 Dose: 40 mg Documented By: KERRI Fluoxetine HCl (Fluoxetine Hcl 20 Mg Capsule) 40 mg PO BEDTIME NATE On Hold: 02/22/25 14:23 Last Admin: 02/21/25 22:23 Dose: Not Given Documented By: PAPITO Non-Admin Reason: pt refused Glucagon (Glucagon Hcl 1 Mg Vial) 1 mg IM Q20M PRN PRN Reason: low BG Glucose (Glucose Gel 15 Gm Gel..Gram.) 15 gm PO Q15M PRN; Protocol PRN Reason: per Hypoglycemia Standing Ord. Hydralazine HCl (Hydralazine Hcl 20 Mg/Ml Vial) 5 mg IVPUSH Q6H PRN; Protocol PRN Reason: htn Last Admin: 02/23/25 17:30 Dose: 5 mg Documented By: JAYME Valproic Acid 500 mg/ Dextrose 55 mls @ 52.5 mls/hr IV Q12H [facility] Last Admin: 03/15/25 08:54 Dose: 52.5 mls/hr Documented By: KERRI Insulin Glargine (Insulin Glargine,Hum.Rec.Anlog 100 Unit/Ml 10 Ml Vial) 30 unit SUBCUT DAILY [facility] On Hold: 03/14/25 09:00 Insulin Human Lispro (Insulin Lispro 100 Unit/Ml 3 Ml Vial) 0 unit SUBCUT QIDACHS [facility]; Protocol Last Admin: 03/15/25 09:02 Dose: 2 unit Documented By: KERRI Magnesium Hydroxide (Milk Of Magnesia 30 Ml Oral.Susp) 30 ml PO DAILY PRN PRN Reason: Constipation Melatonin (Melatonin 3 Mg Tablet) 6 mg PO BEDTIME PRN PRN Reason: Insomnia Metoprolol Tartrate (Metoprolol Tartrate 12.5 Mg Halftab) 12.5 mg PO BID [facility]; Protocol Last Admin: 03/15/25 08:56 Dose: 12.5 mg Documented By: KERRI Naloxone HCl (Naloxone Hcl 0.4 Mg/Ml Vial) 0.04 mg IVPUSH Q5M PRN PRN Reason: Excessive sedation or RR < 8 Nystatin (Nystatin Powder 15 Gm Bottle) 1 appl TOPICAL BID [facility]; Protocol Last Admin: 03/15/25 09:03 Dose: 1 appl Documented By: KERRI Omeprazole (Omeprazole/Na Bicarb Oral Susp 20 Mg/10 Ml Ud Cup) 20 mg G-TUBE DAILY@0630 [facility] Last Admin: 03/15/25 06:32 Dose: 20 mg Documented By: RONDA Perphenazine (Perphenazine 2 Mg Tablet) 2 mg PO BID [facility] Last Admin: 03/15/25 08:56 Dose: 2 mg Documented By: KERRI Perphenazine (Perphenazine 4 Mg Tablet) 4 mg PO BID [facility] Last Admin: 03/15/25 08:56 Dose: 4 mg Documented By: KERRI Pharmacy Consult (Consult Rx Parenteral Nutrition Ordering) 1 each MISCELLANE DAILY PRN PRN Reason: Consult order Senna (Sennosides 8.6 Mg Tablet) 8.6 mg PO DAILY [facility] Last Admin: 03/15/25 08:56 Dose: 8.6 mg Documented By: KERRI Sodium Biphosphate/Sodium Phosphate (Sodium Phosphate,[place]-Dibasic 133 Ml Enema) 133 ml [place] DAILY PRN PRN Reason: Constipation Last Admin: 03/11/25 12:18 Dose: 133 ml Documented By: STEPHANE Sodium Chloride (0.9 % Sodium Chloride Flush 3 Ml Syringe) 3 ml IVFLUSH QSHIFT [facility] Last Admin: 03/15/25 00:01 Dose: 3 ml Documented By: RONDA Trazodone HCl (Trazodone Hcl 50 Mg Tablet) 50 mg PO BEDTIME MRX1 PRN PRN Reason: Insomnia Last Admin: 03/03/25 23:01 Dose: 50 mg Documented By: PAPITO Labs 03/04/25 06:46 03/06/25 06:31 Labs: Laboratory Results - last 24 hr 03/14/25 03/14/25 03/14/25 12:15 16:45 20:58 POC Glucose 166 H 235 H 220 H 03/14/25 03/15/25 23:19 07:51 POC Glucose 222 H 151 H Assessment and Plan (1) Schizoaffective disorder: Status: Acute Plan 69M PMH schizoaffective disorder with psychotic features, major depressive disorder, diabetes, GERD presented to the ED on 02/14/2025 for multiple falls. became hypoxic on 02/16/25 acute toxic metabolic encephalopathy and Acute hypoxic respiratory failure due to aspiration pneumonia completed IV Unasyn . blood cultures neg , weaned O2 as tolerated, aspiration precautions, off oxygen, goal saturation 95% Seen by speech and swallow-purred /nector thick. but had very poor intake, so was using tpn underwent gtube 03/02/25. holding tube feed whilst able to eat. Oral feed with NDD2 and [place] thick Schizoaffective disorder with psychotic features he intermittently refuses psych medsand vital/rx continue present meds: Fuoxetine, Trilafon, depakote, Clozaril, Valiui Psych follow up PRN Diabetes, uncontrolled increase lantus to 30, continue ssi htn, low normal. No meds DVT prophylaxis: Lovenox Full code Quality Stroke Does the patient have a stroke diagnosis?: No VTE Prior VTE?: No VTE Risk Level:: Medical - moderate - high VTE Device Contraindication: Treatment Not Indicated VTE Drug Contraindication: N/A - Med Ordered
[2025-03-15 12:01] LABS: Glucose, Whole Blood 235 mg/dL (60-115)
[2025-03-15 15:46] VITALS: BP 133/68; PULSE 69; RESP 16; TEMP 36.1; O2SAT 96
[2025-03-15 17:12] LABS: Glucose, Whole Blood 224 mg/dL (60-115)
[2025-03-15 19:56] VITALS: BP 118/64; PULSE 74; RESP 19; TEMP 35.8; O2SAT 97
[2025-03-15 20:46] LABS: Glucose, Whole Blood 183 mg/dL (60-115)
[2025-03-16 03:39] VITALS: BP 131/61; PULSE 67; RESP 18; TEMP 36.3; O2SAT 97
[2025-03-16] MEDS: Omeprazole/Na Bicarb Oral Susp 20 MG/10 ML UD Cup G-TUBE (06:16)
[2025-03-16 07:37] LABS: Glucose, Whole Blood 150 mg/dL (60-115)
[2025-03-16 07:54] VITALS: BP 112/63; PULSE 69; RESP 18; TEMP 36; O2SAT 97
[2025-03-16] MEDS: Valproic Acid (as Sodium Salt) 500 MG in Dextrose 5 % 50 ML 52.5 MG IV ×2 (08:09→20:28)
[2025-03-16] MEDS: 0.9 % Sodium Chloride Flush 3 ML SYRINGE IVFLUSH ×3 (08:14→21:02)
[2025-03-16] MEDS: Metoprolol Tartrate 12.5 MG HALFTAB PO ×2 (08:14→20:20)
--- NOTE | 2025-03-16 10:20 | MHC.CLN ---
Addendum entered by Katelin Schulz, VIRGIE 03/16/25 10:24: DIET RX DIABETIC 2000 KCALS, GROUND CONSISTENCY WITH NECTAR THICK LIQUIDS. Original Note: F/U DIET RX GROUND WITH NECTAR THICK LIQUIDS. TUBE FEED ON HOLD SINCE 03/13 WITH ADDITION OF DIET ORDER. PER MD, DISCONTINUE TUBE FEED. MOST RECENT PO INTAKE 50-100%. FOLLOW FOR PO INTAKE.
[2025-03-16 11:11] LABS: Glucose, Whole Blood 219 mg/dL (60-115)
[2025-03-16 12:35] VITALS: BP 112/63; PULSE 69; O2SAT 97
--- NOTE | 2025-03-16 12:42 | MHC.SL.SWA ---
Speech Pathologist Impression: Risk of Aspiration, Oropharyngeal Dysphagia Dysphasia Diet Status: Recommend GROUND solids (NDD2) with NECTAR THICK juice, no straw/cup sip only, pills crushed in puree. Liquid Consistency and Strategies for Safe Swallow: Liquid Intake Recommendation: [place] Thick Liquid Intake Strategies: Small Sips No Straws Solid Food Consistency: Dietary Recommendations: Grnd/Mech Altered (NDD2) Additional Modifications to Solid Foods: INDUSTRIAL CHEMIST previously recommending safety tray: REMOVE KNIFE and FORK from tray if present, leave spoon. Open all items and prepare tray, orient patient to tray. Oral Medication Intake: Crushed with Puree Please contact the pharmacy regarding appropriate crushable or liquid drug formulations that are available whenever modified delivery is recommended. Compensatory Strategies and Precautions to be Taken for Safe Swallow: Sitting Upright (90 deg) No Straw Liquids from Cup Small Bites and Sips Alternate Liquids/Solids Supervision While Eating and Drinking for Safe Swallow: Direct Supervision (1:1) Foods to Avoid: Tough, difficult to chew solids. Swallowing Recommended Treatments: Compens. Strategy Educat. Recommendation for Speech: Inpatient Speech Therapy Atmospheric Chemist Clinican/Clinical Fellow: No Supervisory Statement: I have reviewed and agree with the student/clinical fellow's documentation: N/A Speech Language Pathologist: Tami Schultz M.A., CCC-INDUSTRIAL CHEMIST
--- NOTE | 2025-03-16 14:19 | HO.PM.IMPN ---
Subjective Subjective Date of Service: 03/16/25 Interval History: At baseline mental status currently No behavioral issues overnight or currently. No sitter by bedside Eating and drinking well. On saying ?good morning ?to the patient, he responds with ?pick a letter from A to Z . I picked E - I was wrong. He picked X . Patient asked if my name was Jaiden. I responded, No . He informed me he could not continue conversation with someone who wants to take his organs . Review of Systems Review of Systems: Yes Unobtainable due to mental status Physical Exam Exam: Exam: General: A&O x0; unable to determine orientation given patient's baseline mental status. Altered and confused at baseline Cardiac: S1, S2 auscultated with no S3/4, no MRG. Well perfused. Respiratory: Normal breath sounds auscultated throughout all lung zones, without wheezing, rales. Normal rate. GI/ : No abdominal pain on palpation, no masses or distentions. MSK: Normal ambulation without pain at bony prominences or musculature Neurological: Normal neurological examination on overview, without obvious CN II-XII abnormalities. Vital Signs: Vital Signs: Last Vital Signs Temp 96.8 F 03/16/25 07:54 Pulse 69 03/16/25 12:35 Resp 18 03/16/25 07:54 BP 112/63 03/16/25 12:35 Pulse Ox 97 03/16/25 12:35 O2 Del Method Room Air 03/16/25 07:54 O2 Flow Rate 3 03/07/25 23:35 BMI result Body Mass Index 23.3 Objective Data Active Medications Acetaminophen (Acetaminophen 325 Mg Tablet) 650 mg PO Q6H PRN PRN Reason: Headache/Pain, Scale 1-10 Al Hydroxide/Mg Hydroxide (Magnesium Hydrox/Alum Hydrox 30 Ml Oral.Susp) 30 ml PO Q6H PRN PRN Reason: Heartburn/Nausea Calcium Carbonate (Calcium Carbonate 750 Mg Tab.Chew) 750 mg PO Q4H PRN PRN Reason: Heartburn Clozapine (Clozapine 25 Mg Tablet) 50 mg PO TID [facility] Last Admin: 03/16/25 08:13 Dose: 50 mg Documented By: REFUGIO Dextrose (Dextrose 50 % 25 Gm/50 Ml Syringe) 25 gm IVPUSH Q15M PRN; Protocol PRN Reason: per Hypoglycemia Standing Ord. Docusate Sodium (Docusate Sodium 100 Mg/10 Ml Liquid) 100 mg G-TUBE BID [facility] Last Admin: 03/16/25 08:14 Dose: Not Given Documented By: REFUGIO Non-Admin Reason: Patient Refused Enoxaparin Sodium (Enoxaparin Sodium 40 Mg/0.4 Ml Syringe) 40 mg SUBCUT Q24H NATE Last Admin: 03/16/25 08:11 Dose: 40 mg Documented By: REFUGIO Fluoxetine HCl (Fluoxetine Hcl 20 Mg Capsule) 40 mg PO BEDTIME NATE On Hold: 02/22/25 14:23 Last Admin: 02/21/25 22:23 Dose: Not Given Documented By: PAPITO Non-Admin Reason: pt refused Glucagon (Glucagon Hcl 1 Mg Vial) 1 mg IM Q20M PRN PRN Reason: low BG Glucose (Glucose Gel 15 Gm Gel..Gram.) 15 gm PO Q15M PRN; Protocol PRN Reason: per Hypoglycemia Standing Ord. Hydralazine HCl (Hydralazine Hcl 20 Mg/Ml Vial) 5 mg IVPUSH Q6H PRN; Protocol PRN Reason: htn Last Admin: 02/23/25 17:30 Dose: 5 mg Documented By: JAYME Valproic Acid 500 mg/ Dextrose 55 mls @ 52.5 mls/hr IV Q12H [facility] Last Infusion: 03/16/25 09:16 Dose: Infused Documented By: REFUGIO Insulin Glargine (Insulin Glargine,Hum.Rec.Anlog 100 Unit/Ml 10 Ml Vial) 30 unit SUBCUT DAILY NATE On Hold: 03/14/25 09:00 Insulin Human Lispro (Insulin Lispro 100 Unit/Ml 3 Ml Vial) 0 unit SUBCUT QIDACHS [facility]; Protocol Last Admin: 03/16/25 11:24 Dose: 2 unit Documented By: REFUGIO Magnesium Hydroxide (Milk Of Magnesia 30 Ml Oral.Susp) 30 ml PO DAILY PRN PRN Reason: Constipation Melatonin (Melatonin 3 Mg Tablet) 6 mg PO BEDTIME PRN PRN Reason: Insomnia Metoprolol Tartrate (Metoprolol Tartrate 12.5 Mg Halftab) 12.5 mg PO BID [facility]; Protocol Last Admin: 03/16/25 08:14 Dose: 12.5 mg Documented By: REFUGIO Naloxone HCl (Naloxone Hcl 0.4 Mg/Ml Vial) 0.04 mg IVPUSH Q5M PRN PRN Reason: Excessive sedation or RR < 8 Nystatin (Nystatin Powder 15 Gm Bottle) 1 appl TOPICAL BID [facility]; Protocol Last Admin: 03/16/25 08:14 Dose: 1 appl Documented By: REFUGIO Omeprazole (Omeprazole/Na Bicarb Oral Susp 20 Mg/10 Ml Ud Cup) 20 mg G-TUBE DAILY@0630 [facility] Last Admin: 03/16/25 06:16 Dose: 20 mg Documented By: CISCO Perphenazine (Perphenazine 2 Mg Tablet) 2 mg PO BID [facility] Last Admin: 03/16/25 08:13 Dose: 2 mg Documented By: REFUGIO Perphenazine (Perphenazine 4 Mg Tablet) 4 mg PO BID [facility] Last Admin: 03/16/25 08:14 Dose: 4 mg Documented By: REFUGIO Pharmacy Consult (Consult Rx Parenteral Nutrition Ordering) 1 each MISCELLANE DAILY PRN PRN Reason: Consult order Senna (Sennosides 8.6 Mg Tablet) 8.6 mg PO DAILY [facility] Last Admin: 03/16/25 08:14 Dose: 8.6 mg Documented By: REFUGIO Sodium Biphosphate/Sodium Phosphate (Sodium Phosphate,[place]-Dibasic 133 Ml Enema) 133 ml [place] DAILY PRN PRN Reason: Constipation Last Admin: 03/11/25 12:18 Dose: 133 ml Documented By: STEPHANE Sodium Chloride (0.9 % Sodium Chloride Flush 3 Ml Syringe) 3 ml IVFLUSH QSHIFT [facility] Last Admin: 03/16/25 08:14 Dose: 3 ml Documented By: REFUGIO Trazodone HCl (Trazodone Hcl 50 Mg Tablet) 50 mg PO BEDTIME MRX1 PRN PRN Reason: Insomnia Last Admin: 03/03/25 23:01 Dose: 50 mg Documented By: PAPITO Labs 03/04/25 06:46 03/06/25 06:31 Labs: Laboratory Results - last 24 hr 03/15/25 03/15/25 03/16/25 16:56 20:34 07:20 POC Glucose 224 H 183 H 150 H 03/16/25 11:06 POC Glucose 219 H Assessment and Plan (1) Intentional self-harm: Status: Acute (2) Psychosis: Status: Acute (3) Verbalizes suicidal thoughts: Status: Acute (4) Schizoaffective disorder: Status: Acute (5) Fall: Status: Acute (6) Hypoxia: Status: Acute (7) Alzheimer's dementia: Status: Acute Plan 69M PMH schizoaffective disorder with psychotic features, major depressive disorder, diabetes, GERD presented to the ED on 02/14/2025 for multiple falls, admitted for acute multifactorial encephalopathy, complicated by acute hypoxic respiratory failure due to aspiration pneumonia 02/16/25. Acute toxic/metabolic encephalopathy Acute hypoxic respiratory failure Aspiration pneumonia Completed IV Unasyn . Blood cultures neg , weaned O2 as tolerated, aspiration precautions, off oxygen, goal saturation 95% Seen by speech and swallow-purred /nector thick. Had had very poor intake, so was using TPN Underwent gtube 03/02/25. Holding tube feed whilst able to eat. Able to intake p.o.. Oral feed with NDD2 and [place] thick Schizoaffective disorder with psychotic features He intermittently refuses psych medsand vital/rx continue present meds: Fuoxetine, Trilafon, depakote, Clozaril, Valiui Psych follow up PRN Diabetes, uncontrolled increase lantus to 30, continue ssi HTN No management currently - BP low normal QUALITY [employer] - VTE: Enoxaparin - CODE STATUS: Full code - DIET: NDD2 and [place] thick Total time managing care of this patient today: 35 minutes. Quality Stroke Does the patient have a stroke diagnosis?: No VTE Prior VTE?: No VTE Risk Level:: Medical - moderate - high VTE Device Contraindication: Treatment Not Indicated VTE Drug Contraindication: N/A - Med Ordered
[2025-03-16 15:00] VITALS: BP 119/64; PULSE 66; RESP 16; TEMP 36.2; O2SAT 96
[2025-03-16 15:51] LABS: Glucose, Whole Blood 190 mg/dL (60-115)
[2025-03-16 20:00] VITALS: BP 150/69; PULSE 82; RESP 18; TEMP 36.4; O2SAT 97
[2025-03-16 20:46] LABS: Glucose, Whole Blood 291 mg/dL (60-115)
[2025-03-17 04:00] VITALS: BP 131/62; PULSE 61; RESP 18; TEMP 36.3; O2SAT 96
[2025-03-17] MEDS: Omeprazole/Na Bicarb Oral Susp 20 MG/10 ML UD Cup G-TUBE (05:43)
[2025-03-17 07:16] VITALS: BP 117/55; PULSE 74; RESP 18; TEMP 37; O2SAT 95
[2025-03-17 07:20] LABS: Glucose, Whole Blood 129 mg/dL (60-115)
[2025-03-17] MEDS: Valproic Acid (as Sodium Salt) 500 MG in Dextrose 5 % 50 ML 52.5 MG IV ×2 (07:55→19:44)
[2025-03-17] MEDS: 0.9 % Sodium Chloride Flush 3 ML SYRINGE IVFLUSH ×3 (07:56→19:50)
[2025-03-17] MEDS: Metoprolol Tartrate 12.5 MG HALFTAB PO ×2 (07:56→19:46)
[2025-03-17 11:05] LABS: Glucose, Whole Blood 264 mg/dL (60-115)
--- NOTE | 2025-03-17 11:24 | P.PNIM_ITS ---
Subjective Subjective Date of Service: 03/17/25 Interval History: No new complaints today. Patient remains confused and altered. Unreliable historian. Review of Systems Review of Systems: Yes Unobtainable due to mental status Physical Exam 2 Exam: Exam: General: A&O x0; unable to determine orientation given patient's baseline mental status. Altered and confused at baseline Cardiac: S1, S2 auscultated with no S3/4, no MRG. Well perfused. Respiratory: Normal breath sounds auscultated throughout all lung zones, without wheezing, rales. Normal rate. GI/ : No abdominal pain on palpation, no masses or distentions. MSK: Normal ambulation without pain at bony prominences or musculature Neurological: Normal neurological examination on overview, without obvious CN II-XII abnormalities. Vital Signs: Vital Signs: Last Vital Signs Temp 98.6 F 03/17/25 07:16 Pulse 74 03/17/25 07:16 Resp 18 03/17/25 07:16 BP 117/55 L 03/17/25 07:16 Pulse Ox 95 03/17/25 07:16 O2 Del Method Room Air 03/17/25 07:16 O2 Flow Rate 3 03/07/25 23:35 BMI result Body Mass Index 23.3 Objective Data Active Medications Acetaminophen (Acetaminophen 325 Mg Tablet) 650 mg PO Q6H PRN PRN Reason: Headache/Pain, Scale 1-10 Al Hydroxide/Mg Hydroxide (Magnesium Hydrox/Alum Hydrox 30 Ml Oral.Susp) 30 ml PO Q6H PRN PRN Reason: Heartburn/Nausea Calcium Carbonate (Calcium Carbonate 750 Mg Tab.Chew) 750 mg PO Q4H PRN PRN Reason: Heartburn Clozapine (Clozapine 25 Mg Tablet) 50 mg PO TID [facility] Last Admin: 03/17/25 07:56 Dose: 50 mg Documented By: DABA Dextrose (Dextrose 50 % 25 Gm/50 Ml Syringe) 25 gm IVPUSH Q15M PRN; Protocol PRN Reason: per Hypoglycemia Standing Ord. Docusate Sodium (Docusate Sodium 100 Mg/10 Ml Liquid) 100 mg G-TUBE BID [facility] Last Admin: 03/17/25 07:45 Dose: Not Given Documented By: DABA Non-Admin Reason: Patient Refused Enoxaparin Sodium (Enoxaparin Sodium 40 Mg/0.4 Ml Syringe) 40 mg SUBCUT Q24H [facility] Last Admin: 03/17/25 08:59 Dose: 40 mg Documented By: RAY Fluoxetine HCl (Fluoxetine Hcl 20 Mg Capsule) 40 mg PO BEDTIME NATE On Hold: 02/22/25 14:23 Last Admin: 02/21/25 22:23 Dose: Not Given Documented By: PAPITO Non-Admin Reason: pt refused Glucagon (Glucagon Hcl 1 Mg Vial) 1 mg IM Q20M PRN PRN Reason: low BG Glucose (Glucose Gel 15 Gm Gel..Gram.) 15 gm PO Q15M PRN; Protocol PRN Reason: per Hypoglycemia Standing Ord. Hydralazine HCl (Hydralazine Hcl 20 Mg/Ml Vial) 5 mg IVPUSH Q6H PRN; Protocol PRN Reason: htn Last Admin: 02/23/25 17:30 Dose: 5 mg Documented By: JAYME Valproic Acid 500 mg/ Dextrose 55 mls @ 52.5 mls/hr IV Q12H [facility] Last Infusion: 03/17/25 09:02 Dose: Infused Documented By: RAY Insulin Glargine (Insulin Glargine,Hum.Rec.Anlog 100 Unit/Ml 10 Ml Vial) 30 unit SUBCUT DAILY [facility] On Hold: 03/14/25 09:00 Insulin Human Lispro (Insulin Lispro 100 Unit/Ml 3 Ml Vial) 0 unit SUBCUT QIDACHS [facility]; Protocol Last Admin: 03/17/25 07:24 Dose: Not Given Documented By: RAY Non-Admin Reason: No Insulin Coverage Magnesium Hydroxide (Milk Of Magnesia 30 Ml Oral.Susp) 30 ml PO DAILY PRN PRN Reason: Constipation Melatonin (Melatonin 3 Mg Tablet) 6 mg PO BEDTIME PRN PRN Reason: Insomnia Last Admin: 03/16/25 20:20 Dose: 6 mg Documented By: CISCO Metoprolol Tartrate (Metoprolol Tartrate 12.5 Mg Halftab) 12.5 mg PO BID [facility]; Protocol Last Admin: 03/17/25 07:56 Dose: 12.5 mg Documented By: RAY Naloxone HCl (Naloxone Hcl 0.4 Mg/Ml Vial) 0.04 mg IVPUSH Q5M PRN PRN Reason: Excessive sedation or RR < 8 Nystatin (Nystatin Powder 15 Gm Bottle) 1 appl TOPICAL BID [facility]; Protocol Last Admin: 03/17/25 08:02 Dose: 1 appl Documented By: RAY Omeprazole (Omeprazole/Na Bicarb Oral Susp 20 Mg/10 Ml Ud Cup) 20 mg G-TUBE DAILY@0630 [facility] Last Admin: 03/17/25 05:43 Dose: 20 mg Documented By: CISCO Perphenazine (Perphenazine 2 Mg Tablet) 2 mg PO BID [facility] Last Admin: 03/17/25 07:56 Dose: 2 mg Documented By: RAY Perphenazine (Perphenazine 4 Mg Tablet) 4 mg PO BID [facility] Last Admin: 03/17/25 07:56 Dose: 4 mg Documented By: RAY Pharmacy Consult (Consult Rx Parenteral Nutrition Ordering) 1 each MISCELLANE DAILY PRN PRN Reason: Consult order Senna (Sennosides 8.6 Mg Tablet) 8.6 mg PO DAILY [facility] Last Admin: 03/17/25 08:00 Dose: Not Given Documented By: RAY Non-Admin Reason: Patient Refused Sodium Biphosphate/Sodium Phosphate (Sodium Phosphate,[place]-Dibasic 133 Ml Enema) 133 ml [place] DAILY PRN PRN Reason: Constipation Last Admin: 03/11/25 12:18 Dose: 133 ml Documented By: STEPHANE Sodium Chloride (0.9 % Sodium Chloride Flush 3 Ml Syringe) 3 ml IVFLUSH QSHIFT [facility] Last Admin: 03/17/25 07:56 Dose: 3 ml Documented By: RAY Trazodone HCl (Trazodone Hcl 50 Mg Tablet) 50 mg PO BEDTIME MRX1 PRN PRN Reason: Insomnia Last Admin: 03/16/25 20:21 Dose: 50 mg Documented By: CISCO Labs 03/04/25 06:46 03/06/25 06:31 Labs: Laboratory Results - last 24 hr 03/16/25 03/16/25 03/17/25 15:47 20:42 07:15 POC Glucose 190 H 291 H 129 H 03/17/25 11:00 POC Glucose 264 H Assessment and Plan (1) Intentional self-harm: Status: Acute (2) Psychosis: Status: Acute (3) Verbalizes suicidal thoughts: Status: Acute (4) Schizoaffective disorder: Status: Acute (5) Fall: Status: Acute (6) Alzheimer's dementia: Status: Acute Plan 69M PMH schizoaffective disorder with psychotic features, major depressive disorder, diabetes, GERD presented to the ED on 02/14/2025 for multiple falls, admitted for acute multifactorial encephalopathy, complicated by acute hypoxic respiratory failure due to aspiration pneumonia 02/16/25. Acute toxic/metabolic encephalopathy Acute hypoxic respiratory failure Aspiration pneumonia Completed IV Unasyn . Blood cultures neg , weaned O2 as tolerated, aspiration precautions, off oxygen, goal saturation 95% Seen by speech and swallow-purred /nector thick. Had had very poor intake, so was using TPN Underwent gtube 03/02/25. Holding tube feed whilst able to eat. Able to intake p.o.. Oral feed with NDD2 and [place] thick Schizoaffective disorder with psychotic features He intermittently refuses psych medsand vital/rx continue present meds: Fuoxetine, Trilafon, depakote, Clozaril, Valiui Psych follow up PRN Diabetes, uncontrolled increase lantus to 30, continue ssi HTN No management currently - BP low normal [employer] - VTE: Enoxaparin - CODE STATUS: Full code - DIET: NDD2 and [place] thick - DISPOSITION: Pending placement Total time managing care of this patient today: 35 minutes. Quality Stroke Does the patient have a stroke diagnosis?: No VTE Prior VTE?: No VTE Risk Level:: Medical - moderate - high VTE Device Contraindication: Treatment Not Indicated VTE Drug Contraindication: N/A - Med Ordered
--- NOTE | 2025-03-17 14:00 | MHC.CM.PN ---
EMR REVIEWED AND PER MD ROUNDS, PT IS MEDICALLY CLEARED AND AWAITING PLACEMENT. CM CONTINUES TO AWAIT WORD FROM GUARDIAN SHALONDA KIM ON MH CONVERSION. [facility] IS FOLLOWING AND UPDATED VIA [facility].
[2025-03-17 15:16] VITALS: BP 112/55; PULSE 68; RESP 18; TEMP 36.1; O2SAT 95
[2025-03-17 15:59] LABS: Glucose, Whole Blood 209 mg/dL (60-115)
[2025-03-17 18:58] VITALS: BP 134/62; PULSE 70; RESP 16; TEMP 36.2; O2SAT 97
--- NOTE | 2025-03-17 19:14 | MHC.SLORD ---
Speech Language Pathology Order Status: Due to time constraints, patient checked on this morning after breakfast. Patient had eaten entire meal, was requesting additional snacks from full time staff interpreter. Patient quite talkative, mostly appropriate, tolerating diet and making good progress. COMMUNITY OUTREACH DIRECTOR will continue to follow.
[2025-03-17 20:20] LABS: Glucose, Whole Blood 262 mg/dL (60-115)
[2025-03-18 03:52] VITALS: BP 125/57; PULSE 63; RESP 19; TEMP 36.2; O2SAT 96
[2025-03-18] MEDS: Omeprazole/Na Bicarb Oral Susp 20 MG/10 ML UD Cup G-TUBE (06:37)
[2025-03-18 07:31] VITALS: BP 130/57; PULSE 68; RESP 18; TEMP 36.9; O2SAT 96
[2025-03-18 07:37] LABS: Glucose, Whole Blood 164 mg/dL (60-115)
[2025-03-18] MEDS: Metoprolol Tartrate 12.5 MG HALFTAB PO ×2 (08:00→20:18)
[2025-03-18] MEDS: Valproic Acid (as Sodium Salt) 500 MG in Dextrose 5 % 50 ML 52.5 MG IV ×2 (08:07→20:13)
[2025-03-18] MEDS: 0.9 % Sodium Chloride Flush 3 ML SYRINGE IVFLUSH ×3 (08:09→20:12)
[2025-03-18 11:20] LABS: Glucose, Whole Blood 224 mg/dL (60-115)
--- NOTE | 2025-03-18 14:47 | HO.PM.IMPN ---
Subjective Subjective Date of Service: 03/18/25 Interval History: No new issues or complaints today. Patient represents an unreliable historian in the setting of his dementia. Review of Systems Review of Systems: Yes Unobtainable due to mental status Physical Exam Exam: Exam: General: A&O x0; unable to determine orientation given patient's baseline mental status. Altered and confused at baseline Cardiac: S1, S2 auscultated with no S3/4, no MRG. Well perfused. Respiratory: Normal breath sounds auscultated throughout all lung zones, without wheezing, rales. Normal rate. GI/ : No abdominal pain on palpation, no masses or distentions. MSK: Normal ambulation without pain at bony prominences or musculature Neurological: Normal neurological examination on overview, without obvious CN II-XII abnormalities. Vital Signs: Vital Signs: Last Vital Signs Temp 98.5 F 03/18/25 07:31 Pulse 68 03/18/25 07:31 Resp 18 03/18/25 07:31 BP 130/57 L 03/18/25 07:31 Pulse Ox 96 03/18/25 07:31 O2 Del Method Room Air 03/18/25 07:31 O2 Flow Rate 3 03/07/25 23:35 BMI result Body Mass Index 23.3 Objective Data Active Medications Acetaminophen (Acetaminophen 325 Mg Tablet) 650 mg PO Q6H PRN PRN Reason: Headache/Pain, Scale 1-10 Al Hydroxide/Mg Hydroxide (Magnesium Hydrox/Alum Hydrox 30 Ml Oral.Susp) 30 ml PO Q6H PRN PRN Reason: Heartburn/Nausea Calcium Carbonate (Calcium Carbonate 750 Mg Tab.Chew) 750 mg PO Q4H PRN PRN Reason: Heartburn Clozapine (Clozapine 25 Mg Tablet) 50 mg PO TID [facility] Last Admin: 03/18/25 14:19 Dose: 50 mg Documented By: REFUGIO Dextrose (Dextrose 50 % 25 Gm/50 Ml Syringe) 25 gm IVPUSH Q15M PRN; Protocol PRN Reason: per Hypoglycemia Standing Ord. Docusate Sodium (Docusate Sodium 100 Mg/10 Ml Liquid) 100 mg G-TUBE BID [facility] Last Admin: 03/18/25 08:01 Dose: Not Given Documented By: REFUGIO Non-Admin Reason: Patient Refused Enoxaparin Sodium (Enoxaparin Sodium 40 Mg/0.4 Ml Syringe) 40 mg SUBCUT Q24H [facility] Last Admin: 03/18/25 08:01 Dose: 40 mg Documented By: REFUGIO Fluoxetine HCl (Fluoxetine Hcl 20 Mg Capsule) 40 mg PO BEDTIME NATE On Hold: 02/22/25 14:23 Last Admin: 02/21/25 22:23 Dose: Not Given Documented By: PAPITO Non-Admin Reason: pt refused Glucagon (Glucagon Hcl 1 Mg Vial) 1 mg IM Q20M PRN PRN Reason: low BG Glucose (Glucose Gel 15 Gm Gel..Gram.) 15 gm PO Q15M PRN; Protocol PRN Reason: per Hypoglycemia Standing Ord. Hydralazine HCl (Hydralazine Hcl 20 Mg/Ml Vial) 5 mg IVPUSH Q6H PRN; Protocol PRN Reason: htn Last Admin: 02/23/25 17:30 Dose: 5 mg Documented By: JAYME Valproic Acid 500 mg/ Dextrose 55 mls @ 52.5 mls/hr IV Q12H [facility] Last Infusion: 03/18/25 09:34 Dose: Infused Documented By: REFUGIO Insulin Glargine (Insulin Glargine,Hum.Rec.Anlog 100 Unit/Ml 10 Ml Vial) 30 unit SUBCUT DAILY [facility] On Hold: 03/14/25 09:00 Insulin Human Lispro (Insulin Lispro 100 Unit/Ml 3 Ml Vial) 0 unit SUBCUT QIDACHS [facility]; Protocol Last Admin: 03/18/25 11:41 Dose: 4 unit Documented By: REFUGIO Magnesium Hydroxide (Milk Of Magnesia 30 Ml Oral.Susp) 30 ml PO DAILY PRN PRN Reason: Constipation Melatonin (Melatonin 3 Mg Tablet) 6 mg PO BEDTIME PRN PRN Reason: Insomnia Last Admin: 03/16/25 20:20 Dose: 6 mg Documented By: CISCO Metoprolol Tartrate (Metoprolol Tartrate 12.5 Mg Halftab) 12.5 mg PO BID [facility]; Protocol Last Admin: 03/18/25 08:00 Dose: 12.5 mg Documented By: REFUGIO Naloxone HCl (Naloxone Hcl 0.4 Mg/Ml Vial) 0.04 mg IVPUSH Q5M PRN PRN Reason: Excessive sedation or RR < 8 Nystatin (Nystatin Powder 15 Gm Bottle) 1 appl TOPICAL BID [facility]; Protocol Last Admin: 03/18/25 08:01 Dose: 1 appl Documented By: REFUGIO Omeprazole (Omeprazole/Na Bicarb Oral Susp 20 Mg/10 Ml Ud Cup) 20 mg G-TUBE DAILY@0630 [facility] Last Admin: 03/18/25 06:37 Dose: 20 mg Documented By: KENRICK Perphenazine (Perphenazine 2 Mg Tablet) 2 mg PO BID [facility] Last Admin: 03/18/25 08:01 Dose: 2 mg Documented By: REFUGIO Perphenazine (Perphenazine 4 Mg Tablet) 4 mg PO BID [facility] Last Admin: 03/18/25 08:00 Dose: 4 mg Documented By: REFUGIO Pharmacy Consult (Consult Rx Parenteral Nutrition Ordering) 1 each MISCELLANE DAILY PRN PRN Reason: Consult order Senna (Sennosides 8.6 Mg Tablet) 8.6 mg PO DAILY [facility] Last Admin: 03/18/25 08:00 Dose: 8.6 mg Documented By: REFUGIO Sodium Biphosphate/Sodium Phosphate (Sodium Phosphate,[place]-Dibasic 133 Ml Enema) 133 ml [place] DAILY PRN PRN Reason: Constipation Last Admin: 03/11/25 12:18 Dose: 133 ml Documented By: STEPHANE Sodium Chloride (0.9 % Sodium Chloride Flush 3 Ml Syringe) 3 ml IVFLUSH QSHIFT [facility] Last Admin: 03/18/25 14:22 Dose: 3 ml Documented By: REFUGIO Trazodone HCl (Trazodone Hcl 50 Mg Tablet) 50 mg PO BEDTIME MRX1 PRN PRN Reason: Insomnia Last Admin: 03/16/25 20:21 Dose: 50 mg Documented By: CISCO Labs 03/04/25 06:46 03/06/25 06:31 Labs: Laboratory Results - last 24 hr 03/17/25 03/17/25 03/18/25 15:55 20:12 07:33 POC Glucose 209 H 262 H 164 H 03/18/25 11:12 POC Glucose 224 H Assessment and Plan (1) Intentional self-harm: Status: Acute (2) Psychosis: Status: Acute (3) Verbalizes suicidal thoughts: Status: Acute (4) Schizoaffective disorder: Status: Acute (5) Fall: Status: Acute (6) Alzheimer's dementia: Status: Acute (7) Pneumonia: Status: Acute (8) Hypoxia: Status: Acute Plan 69M PMH schizoaffective disorder with psychotic features, major depressive disorder, diabetes, GERD presented to the ED on 02/14/2025 for multiple falls, admitted for acute multifactorial encephalopathy, complicated by acute hypoxic respiratory failure due to aspiration pneumonia 02/16/25. Acute toxic/metabolic encephalopathy Acute hypoxic respiratory failure Aspiration pneumonia Completed IV Unasyn . Blood cultures neg , weaned O2 as tolerated, aspiration precautions, off oxygen, goal saturation 95% Seen by speech and swallow-purred /nector thick. Had had very poor intake, so was using TPN Underwent gtube 03/02/25. Holding tube feed whilst able to eat. Able to intake p.o.. Oral feed with NDD2 and [place] thick Schizoaffective disorder with psychotic features He intermittently refuses psych medsand vital/rx continue present meds: Fuoxetine, Trilafon, depakote, Clozaril, Valiui Psych follow up PRN Diabetes, uncontrolled increase lantus to 30, continue ssi HTN No management currently - BP low normal QU[employer] - VTE: Enoxaparin - CODE STATUS: Full code - DIET: NDD2 and [place] thick - DISPOSITION: Pending placement Total time managing care of this patient today: 35 minutes. Quality Stroke Does the patient have a stroke diagnosis?: No VTE Prior VTE?: No VTE Risk Level:: Medical - moderate - high VTE Device Contraindication: Treatment Not Indicated VTE Drug Contraindication: N/A - Med Ordered
--- NOTE | 2025-03-18 15:02 | MHC.CLN ---
F/U DIET RX: DIABETIC 2000 KCAL, GROUND, NECTAR THICK LIQUIDS. PO INTAKE VARIABLE, 25-100%. AVERAGE INTAKE APPROX 50%. RD TO MONITOR WEEKLY.
--- NOTE | 2025-03-18 15:13 | MHC.CM.PN ---
A call was placed and left For Ly Cedeño. 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 The insurance will be changed from to Standard. A return call has been requested. DP LTC in a SNF via S pending insurance update.
[2025-03-18 16:00] VITALS: BP 112/56; PULSE 63; RESP 18; TEMP 36.4; O2SAT 97
[2025-03-18 16:32] LABS: Glucose, Whole Blood 280 mg/dL (60-115)
[2025-03-18 19:53] LABS: Glucose, Whole Blood 207 mg/dL (60-115)
[2025-03-18 20:00] VITALS: BP 130/60; PULSE 69; RESP 16; TEMP 36.2; O2SAT 99
[2025-03-19 04:00] VITALS: BP 124/65; PULSE 67; RESP 18; TEMP 36.1; O2SAT 97
[2025-03-19 07:25] VITALS: BP 120/63; PULSE 60; RESP 18; TEMP 36.7; O2SAT 95
[2025-03-19 07:49] LABS: Glucose, Whole Blood 149 mg/dL (60-115)
[2025-03-19] MEDS: Valproic Acid (as Sodium Salt) 500 MG in Dextrose 5 % 50 ML 52.5 MG IV ×2 (08:29→19:42)
[2025-03-19] MEDS: 0.9 % Sodium Chloride Flush 3 ML SYRINGE IVFLUSH ×3 (08:30→19:46)
[2025-03-19] MEDS: Metoprolol Tartrate 12.5 MG HALFTAB PO ×2 (08:30→19:47)
[2025-03-19 11:45] LABS: Glucose, Whole Blood 197 mg/dL (60-115)
--- NOTE | 2025-03-19 12:09 | MHC.SLORD ---
Speech Language Pathology Order Status: Attempted X2 to see patient today, patient sleeping all morning into lunch meal. LONG DISTANCE OPERATOR will continue to follow.
--- NOTE | 2025-03-19 14:08 | P.PNIM_ITS ---
Subjective Subjective Date of Service: 03/19/25 Interval History: No new issues today. No new complaints. Unable to fully engage 2/2 mental status Comfortable on evaluating Review of Systems Review of Systems: Yes Unobtainable due to mental status Physical Exam 2 Exam: Exam: General: A&O x0; unable to determine orientation given patient's baseline mental status. Altered and confused at baseline Cardiac: S1, S2 auscultated with no S3/4, no MRG. Well perfused. Respiratory: Normal breath sounds auscultated throughout all lung zones, without wheezing, rales. Normal rate. GI/ : No abdominal pain on palpation, no masses or distentions. MSK: Normal ambulation without pain at bony prominences or musculature Neurological: Normal neurological examination on overview, without obvious CN II-XII abnormalities. Vital Signs: Vital Signs: Last Vital Signs Temp 98.0 F 03/19/25 07:25 Pulse 60 03/19/25 07:25 Resp 18 03/19/25 07:25 BP 120/63 03/19/25 07:25 Pulse Ox 95 03/19/25 07:25 O2 Del Method Room Air 03/19/25 07:25 O2 Flow Rate 3 03/07/25 23:35 BMI result Body Mass Index 23.3 Objective Data Active Medications Acetaminophen (Acetaminophen 325 Mg Tablet) 650 mg PO Q6H PRN PRN Reason: Headache/Pain, Scale 1-10 Al Hydroxide/Mg Hydroxide (Magnesium Hydrox/Alum Hydrox 30 Ml Oral.Susp) 30 ml PO Q6H PRN PRN Reason: Heartburn/Nausea Calcium Carbonate (Calcium Carbonate 750 Mg Tab.Chew) 750 mg PO Q4H PRN PRN Reason: Heartburn Clozapine (Clozapine 25 Mg Tablet) 50 mg PO TID [facility] Last Admin: 03/19/25 08:30 Dose: 50 mg Documented By: KERRI Dextrose (Dextrose 50 % 25 Gm/50 Ml Syringe) 25 gm IVPUSH Q15M PRN; Protocol PRN Reason: per Hypoglycemia Standing Ord. Docusate Sodium (Docusate Sodium 100 Mg/10 Ml Liquid) 100 mg G-TUBE BID [facility] Last Admin: 03/19/25 08:39 Dose: Not Given Documented By: KERRI Non-Admin Reason: Patient Refused Enoxaparin Sodium (Enoxaparin Sodium 40 Mg/0.4 Ml Syringe) 40 mg SUBCUT Q24H NATE Last Admin: 03/19/25 08:37 Dose: 40 mg Documented By: KERRI Fluoxetine HCl (Fluoxetine Hcl 20 Mg Capsule) 40 mg PO BEDTIME NATE On Hold: 02/22/25 14:23 Last Admin: 02/21/25 22:23 Dose: Not Given Documented By: PAPITO Non-Admin Reason: pt refused Glucagon (Glucagon Hcl 1 Mg Vial) 1 mg IM Q20M PRN PRN Reason: low BG Glucose (Glucose Gel 15 Gm Gel..Gram.) 15 gm PO Q15M PRN; Protocol PRN Reason: per Hypoglycemia Standing Ord. Hydralazine HCl (Hydralazine Hcl 20 Mg/Ml Vial) 5 mg IVPUSH Q6H PRN; Protocol PRN Reason: htn Last Admin: 02/23/25 17:30 Dose: 5 mg Documented By: JAYME Valproic Acid 500 mg/ Dextrose 55 mls @ 52.5 mls/hr IV Q12H [facility] Last Infusion: 03/19/25 09:36 Dose: Infused Documented By: KERRI Insulin Glargine (Insulin Glargine,Hum.Rec.Anlog 100 Unit/Ml 10 Ml Vial) 30 unit SUBCUT DAILY NATE On Hold: 03/14/25 09:00 Insulin Human Lispro (Insulin Lispro 100 Unit/Ml 3 Ml Vial) 0 unit SUBCUT QIDACHS [facility]; Protocol Last Admin: 03/19/25 12:07 Dose: 2 unit Documented By: KERRI Magnesium Hydroxide (Milk Of Magnesia 30 Ml Oral.Susp) 30 ml PO DAILY PRN PRN Reason: Constipation Melatonin (Melatonin 3 Mg Tablet) 6 mg PO BEDTIME PRN PRN Reason: Insomnia Last Admin: 03/16/25 20:20 Dose: 6 mg Documented By: CISCO Metoprolol Tartrate (Metoprolol Tartrate 12.5 Mg Halftab) 12.5 mg PO BID [facility]; Protocol Last Admin: 03/19/25 08:30 Dose: 12.5 mg Documented By: KERRI Naloxone HCl (Naloxone Hcl 0.4 Mg/Ml Vial) 0.04 mg IVPUSH Q5M PRN PRN Reason: Excessive sedation or RR < 8 Nystatin (Nystatin Powder 15 Gm Bottle) 1 appl TOPICAL BID NATE; Protocol Last Admin: 03/19/25 08:37 Dose: 1 appl Documented By: KERRI Omeprazole (Omeprazole/Na Bicarb Oral Susp 20 Mg/10 Ml Ud Cup) 20 mg G-TUBE DAILY@0630 [facility] Last Admin: 03/19/25 05:48 Dose: Not Given Documented By: WES Non-Admin Reason: Patient Refused Perphenazine (Perphenazine 2 Mg Tablet) 2 mg PO BID [facility] Last Admin: 03/19/25 08:30 Dose: 2 mg Documented By: KERRI Perphenazine (Perphenazine 4 Mg Tablet) 4 mg PO BID [facility] Last Admin: 03/19/25 08:30 Dose: 4 mg Documented By: KERRI Senna (Sennosides 8.6 Mg Tablet) 8.6 mg PO DAILY [facility] Last Admin: 03/19/25 08:30 Dose: 8.6 mg Documented By: KERRI Sodium Biphosphate/Sodium Phosphate (Sodium Phosphate,[place]-Dibasic 133 Ml Enema) 133 ml [place] DAILY PRN PRN Reason: Constipation Last Admin: 03/11/25 12:18 Dose: 133 ml Documented By: STEPHANE Sodium Chloride (0.9 % Sodium Chloride Flush 3 Ml Syringe) 3 ml IVFLUSH QSHIFT [facility] Last Admin: 03/19/25 08:30 Dose: 3 ml Documented By: KERRI Trazodone HCl (Trazodone Hcl 50 Mg Tablet) 50 mg PO BEDTIME MRX1 PRN PRN Reason: Insomnia Last Admin: 03/16/25 20:21 Dose: 50 mg Documented By: CISCO Labs 03/04/25 06:46 03/06/25 06:31 Labs: Laboratory Results - last 24 hr 03/18/25 03/18/25 03/19/25 16:25 19:40 07:28 POC Glucose 280 H 207 H 149 H 03/19/25 11:38 POC Glucose 197 H Assessment and Plan (1) Intentional self-harm: Status: Acute (2) Psychosis: Status: Acute (3) Verbalizes suicidal thoughts: Status: Acute (4) Schizoaffective disorder: Status: Acute (5) Fall: Status: Acute (6) Alzheimer's dementia: Status: Acute (7) Hypoxia: Status: Acute Plan 69M PMH schizoaffective disorder with psychotic features, major depressive disorder, diabetes, GERD presented to the ED on 02/14/2025 for multiple falls, admitted for acute multifactorial encephalopathy, complicated by acute hypoxic respiratory failure due to aspiration pneumonia 02/16/25. Acute toxic/metabolic encephalopathy Acute hypoxic respiratory failure Aspiration pneumonia Completed IV Unasyn . Blood cultures neg , weaned O2 as tolerated, aspiration precautions, off oxygen, goal saturation 95% Seen by speech and swallow-purred /nector thick. Had had very poor intake, so was using TPN Underwent gtube 03/02/25. Holding tube feed whilst able to eat. Able to intake p.o.. Oral feed with NDD2 and [place] thick Schizoaffective disorder with psychotic features He intermittently refuses psych medsand vital/rx continue present meds: Fuoxetine, Trilafon, depakote, Clozaril, Valiui Psych follow up PRN Diabetes, uncontrolled increase lantus to 30, continue ssi HTN No management currently - BP low normal QUALITY METRICS - VTE: Enoxaparin - CODE STATUS: Full code - DIET: NDD2 and [place] thick - DISPOSITION: Pending placement Total time managing care of this patient today: 35 minutes. Quality Stroke Does the patient have a stroke diagnosis?: No VTE Prior VTE?: No VTE Risk Level:: Medical - moderate - high VTE Device Contraindication: Treatment Not Indicated VTE Drug Contraindication: N/A - Med Ordered
--- NOTE | 2025-03-19 14:17 | HO.WOUND ---
Wound Consult: follow up 69yr old? admitted to [facility] on 02/16/25 18:06- See progress notes and H&P for detailed history.? Patient skin assessed during P&I Data collection 02/20/25 and noted for Right heel redness - Stage 1 Pressure Injury. ? Follow up today No new topical recommendations needed at this time may continue with off loading heel from surface of bed with pillows and heel foam dressing to protect from friction and aid in pressure redistribution. Applied to both heels. Right heel 02/20/25 Right heel 02/23/25 Right Heel 03/03/25 Right Heel 03/11/25 Etiology: ?? Stage 1 Pressure Injury - resurfaced Measurements: 1.5cm x 1cm x 0cm Wound Bed: intact dry hyperpigmented tissue Drainage / Odor: None Edges: ? attached well defined [place] wound: pink blanchable tissue dry callused noted ? No Induration, Fluctuance or Warmth noted Goals of Treatment: ? Off load pressure - skin prep applied along with foam dressing No new topical recommendations needed at this time. Left heel intact blanchable redness and preventative foam applied. Elevated off of bed surface with pillows. Recommendations: 1. Turn and Reposition every 2 hours and as needed for patient comfort.? Use pillows or wedges to support off loading positions. 2. Off Load all bony prominences with use of pillows and heel boots if needed.? Apply Preventative foams where needed. ? 3. Monitor for incontinence and moisture control, use barrier creams when needed for prevention and treatment. 4. Provide adequate and supplemental nutrition.? 5. Order or Continue low air loss mattress. 6. When applicable maintain blood glucose levels per Providers order. Bilateral Heels? - Elevate heels off of bed surface with pillows.? Float heels off of bed sruface with pillows.? Apply skin prep allow to dry.? Apply heel foam dressings, peel back and assess Q shift and change every 3 days and PRN. Re-consult wound care Nurse for wound deterioration or wound changes.
[2025-03-19 15:21] VITALS: BP 120/63; PULSE 70; RESP 18; TEMP 36.1; O2SAT 98
[2025-03-19 16:10] LABS: Glucose, Whole Blood 235 mg/dL (60-115)
[2025-03-19 19:19] LABS: Glucose, Whole Blood 217 mg/dL (60-115)
[2025-03-19 19:29] VITALS: BP 130/71; PULSE 65; RESP 18; TEMP 36.4; O2SAT 95
[2025-03-20 03:43] VITALS: BP 145/69; PULSE 65; RESP 16; TEMP 36.1; O2SAT 97
[2025-03-20 06:14] LABS: Neut%MD 46.1 %; WBCANC 5.3 X10*3/uL
[2025-03-20 08:00] VITALS: BP 134/70; PULSE 68; RESP 16; TEMP 36.1; O2SAT 95
[2025-03-20 08:12] LABS: Glucose, Whole Blood 156 mg/dL (60-115)
[2025-03-20] MEDS: Valproic Acid (as Sodium Salt) 500 MG in Dextrose 5 % 50 ML 52.5 MG IV ×2 (08:35→19:54)
[2025-03-20] MEDS: 0.9 % Sodium Chloride Flush 3 ML SYRINGE IVFLUSH ×3 (08:35→20:02)
[2025-03-20] MEDS: Metoprolol Tartrate 12.5 MG HALFTAB PO ×2 (08:47→19:57)
[2025-03-20 11:17] LABS: Glucose, Whole Blood 259 mg/dL (60-115)
--- NOTE | 2025-03-20 12:43 | MHC.SL.SWA ---
Speech Pathologist Impression: Risk of Aspiration Risk of Aspiration Due to: Mental Status Dysphasia Diet Status: Continue on current diet GROUND solids (NDD2) with NECTAR THICK juice, no straw/cup sip only, pills crushed in puree. Liquid Consistency and Strategies for Safe Swallow: Liquid Intake Recommendation: [place] Thick Liquid Intake Strategies: Small Sips No Straws Solid Food Consistency: Dietary Recommendations: Grnd/Mech Altered (NDD2) Additional Modifications to Solid Foods: Prepare the tray to ensure all items are opened, apply condiments, and ensure everything is accessible to the patient. Oral Medication Intake: Crushed with Puree Please contact the pharmacy regarding appropriate crushable or liquid drug formulations that are available whenever modified delivery is recommended. Compensatory Strategies and Precautions to be Taken for Safe Swallow: Sitting Upright (90 deg) No Straw Liquids from Cup Small Bites and Sips Alternate Liquids/Solids Supervision While Eating and Drinking for Safe Swallow: Direct Supervision (1:1) Foods to Avoid: Tough, difficult to chew solids. Swallowing Recommended Treatments: Compens. Strategy Educat. Recommendation for Speech: Inpatient Speech Therapy Tube Carrier Clinican/Clinical Fellow: No Supervisory Statement: I have reviewed and agree with the student/clinical fellow's documentation: N/A Speech Language Pathologist: Tami Schultz M.A., CCC-MANAGER POLICY
--- NOTE | 2025-03-20 14:25 | HO.PM.IMPN ---
Subjective Subjective Date of Service: 03/20/25 Interval History: No new issues or complaints today. Patient remains confused and altered. Unable to contribute meaningfully to history and review of systems. Review of Systems Review of Systems: Yes all other systems are reviewed and are negative Physical Exam Exam: Exam: General: A&O x0; unable to determine orientation given patient's baseline mental status. Altered and confused at baseline Cardiac: S1, S2 auscultated with no S3/4, no MRG. Well perfused. Respiratory: Normal breath sounds auscultated throughout all lung zones, without wheezing, rales. Normal rate. GI/ : No abdominal pain on palpation, no masses or distentions. MSK: Normal ambulation without pain at bony prominences or musculature Neurological: Normal neurological examination on overview, without obvious CN II-XII abnormalities. Vital Signs: Vital Signs: Last Vital Signs Temp 97.0 F 03/20/25 08:00 Pulse 68 03/20/25 08:00 Resp 16 03/20/25 08:00 BP 134/70 03/20/25 08:00 Pulse Ox 95 03/20/25 08:00 O2 Del Method Room Air 03/20/25 08:00 O2 Flow Rate 3 03/07/25 23:35 BMI result Body Mass Index 23.3 Objective Data Active Medications Acetaminophen (Acetaminophen 325 Mg Tablet) 650 mg PO Q6H PRN PRN Reason: Headache/Pain, Scale 1-10 Al Hydroxide/Mg Hydroxide (Magnesium Hydrox/Alum Hydrox 30 Ml Oral.Susp) 30 ml PO Q6H PRN PRN Reason: Heartburn/Nausea Calcium Carbonate (Calcium Carbonate 750 Mg Tab.Chew) 750 mg PO Q4H PRN PRN Reason: Heartburn Clozapine (Clozapine 25 Mg Tablet) 50 mg PO TID [facility] Last Admin: 03/20/25 08:39 Dose: 50 mg Documented By: KERRI Dextrose (Dextrose 50 % 25 Gm/50 Ml Syringe) 25 gm IVPUSH Q15M PRN; Protocol PRN Reason: per Hypoglycemia Standing Ord. Docusate Sodium (Docusate Sodium 100 Mg/10 Ml Liquid) 100 mg G-TUBE BID [facility] Last Admin: 03/20/25 08:47 Dose: Not Given Documented By: KERRI Non-Admin Reason: Patient Refused Enoxaparin Sodium (Enoxaparin Sodium 40 Mg/0.4 Ml Syringe) 40 mg SUBCUT Q24H NATE Last Admin: 03/20/25 08:38 Dose: 40 mg Documented By: KERRI Fluoxetine HCl (Fluoxetine Hcl 20 Mg Capsule) 40 mg PO BEDTIME NATE On Hold: 02/22/25 14:23 Last Admin: 02/21/25 22:23 Dose: Not Given Documented By: PAPITO Non-Admin Reason: pt refused Glucagon (Glucagon Hcl 1 Mg Vial) 1 mg IM Q20M PRN PRN Reason: low BG Glucose (Glucose Gel 15 Gm Gel..Gram.) 15 gm PO Q15M PRN; Protocol PRN Reason: per Hypoglycemia Standing Ord. Hydralazine HCl (Hydralazine Hcl 20 Mg/Ml Vial) 5 mg IVPUSH Q6H PRN; Protocol PRN Reason: htn Last Admin: 02/23/25 17:30 Dose: 5 mg Documented By: JAYME Valproic Acid 500 mg/ Dextrose 55 mls @ 52.5 mls/hr IV Q12H [facility] Last Infusion: 03/20/25 09:51 Dose: Infused Documented By: KERRI Insulin Glargine (Insulin Glargine,Hum.Rec.Anlog 100 Unit/Ml 10 Ml Vial) 30 unit SUBCUT DAILY [facility] On Hold: 03/14/25 09:00 Insulin Human Lispro (Insulin Lispro 100 Unit/Ml 3 Ml Vial) 0 unit SUBCUT QIDACHS [facility]; Protocol Last Admin: 03/20/25 11:25 Dose: 6 unit Documented By: KERRI Magnesium Hydroxide (Milk Of Magnesia 30 Ml Oral.Susp) 30 ml PO DAILY PRN PRN Reason: Constipation Melatonin (Melatonin 3 Mg Tablet) 6 mg PO BEDTIME PRN PRN Reason: Insomnia Last Admin: 03/19/25 19:48 Dose: 6 mg Documented By: LEFEBBRAD Metoprolol Tartrate (Metoprolol Tartrate 12.5 Mg Halftab) 12.5 mg PO BID [facility]; Protocol Last Admin: 03/20/25 08:47 Dose: 12.5 mg Documented By: KERRI Naloxone HCl (Naloxone Hcl 0.4 Mg/Ml Vial) 0.04 mg IVPUSH Q5M PRN PRN Reason: Excessive sedation or RR < 8 Nystatin (Nystatin Powder 15 Gm Bottle) 1 appl TOPICAL BID NATE; Protocol Last Admin: 03/20/25 08:45 Dose: 1 appl Documented By: KERRI Omeprazole (Omeprazole/Na Bicarb Oral Susp 20 Mg/10 Ml Ud Cup) 20 mg G-TUBE DAILY@0630 [facility] Last Admin: 03/20/25 05:40 Dose: Not Given Documented By: WES Non-Admin Reason: Patient Refused Perphenazine (Perphenazine 2 Mg Tablet) 2 mg PO BID [facility] Last Admin: 03/20/25 08:46 Dose: 2 mg Documented By: KERRI Perphenazine (Perphenazine 4 Mg Tablet) 4 mg PO BID [facility] Last Admin: 03/20/25 08:46 Dose: 4 mg Documented By: KERRI Senna (Sennosides 8.6 Mg Tablet) 8.6 mg PO DAILY [facility] Last Admin: 03/20/25 08:45 Dose: 8.6 mg Documented By: KERRI Sodium Biphosphate/Sodium Phosphate (Sodium Phosphate,[place]-Dibasic 133 Ml Enema) 133 ml [place] DAILY PRN PRN Reason: Constipation Last Admin: 03/11/25 12:18 Dose: 133 ml Documented By: STEPHANE Sodium Chloride (0.9 % Sodium Chloride Flush 3 Ml Syringe) 3 ml IVFLUSH QSHIFT [facility] Last Admin: 03/20/25 08:35 Dose: 3 ml Documented By: KERRI Trazodone HCl (Trazodone Hcl 50 Mg Tablet) 50 mg PO BEDTIME MRX1 PRN PRN Reason: Insomnia Last Admin: 03/19/25 19:48 Dose: 50 mg Documented By: WES Labs 03/04/25 06:46 03/06/25 06:31 Labs: Laboratory Results - last 24 hr 03/19/25 03/19/25 03/20/25 16:04 19:14 05:29 Absolute Neuts (auto) 2.4 POC Glucose 235 H 217 H 03/20/25 03/20/25 07:52 11:13 Absolute Neuts (auto) POC Glucose 156 H 259 H Assessment and Plan (1) Intentional self-harm: Status: Acute (2) Verbalizes suicidal thoughts: Status: Acute (3) Schizoaffective disorder: Status: Acute (4) Psychosis: Status: Acute (5) Fall: Status: Acute (6) Alzheimer's dementia: Status: Acute (7) Hypoxia: Status: Acute Plan 69M PMH schizoaffective disorder with psychotic features, major depressive disorder, diabetes, GERD presented to the ED on 02/14/2025 for multiple falls, admitted for acute multifactorial encephalopathy, complicated by acute hypoxic respiratory failure due to aspiration pneumonia 02/16/25. Acute toxic/metabolic encephalopathy Acute hypoxic respiratory failure Aspiration pneumonia Completed IV Unasyn . Blood cultures neg , weaned O2 as tolerated, aspiration precautions, off oxygen, goal saturation 95% Seen by speech and swallow-purred /nector thick. Had had very poor intake, so was using TPN Underwent gtube 03/02/25. Holding tube feed whilst able to eat. Able to intake p.o.. Oral feed with NDD2 and [place] thick Schizoaffective disorder with psychotic features He intermittently refuses psych medsand vital/rx continue present meds: Fuoxetine, Trilafon, depakote, Clozaril, Valiui Psych follow up PRN Diabetes, uncontrolled increase lantus to 30, continue ssi HTN No management currently - BP low normal QUALITY [employer] - VTE: Enoxaparin - CODE STATUS: Full code - DIET: NDD2 and [place] thick - DISPOSITION: Pending placement Quality Stroke Does the patient have a stroke diagnosis?: No VTE Prior VTE?: No VTE Risk Level:: Medical - moderate - high VTE Device Contraindication: Treatment Not Indicated VTE Drug Contraindication: N/A - Med Ordered
[2025-03-20 14:53] VITALS: BP 114/59; PULSE 82; RESP 20; TEMP 36.1; O2SAT 99
[2025-03-20] MEDS: Magnesium Hydrox/Alum Hydrox 30 ML ORAL.SUSP PO (15:11)
[2025-03-20 16:30] LABS: Glucose, Whole Blood 146 mg/dL (60-115)
--- NOTE | 2025-03-20 16:54 | P.CDIM_ITS ---
PROVIDER RESPONSE TEXT: To clarify, the appropriate diagnosis supported by the clinical indicators: Diabetes Mellitus with hyperglycemia QUERY TEXT: PHYSICIAN'S DOCUMENTATION REQUEST Date of Query: 03/19/2025 12:10 PM EDT Patient Name: Santy Hall Admit Date: 02/16/2025 Dear Adalid Abraham MD, A review of the medical record indicates additional documentation may be needed. Please review below and update the documentation accordingly. Clinical Indicators: Per Hospitalist progress note 03/18/25: Diabetes, uncontrolled BS 224, 280, 207 increase Lantus to 30, continue SSI Please clarify the following regarding the Complications of Diabetes Mellitus (DM): Diabetes Mellitus with hyperglycemia No complications of DM Other (explain) Clinically unable to determine (explain) Thank you, Missy Rubio RN Use of terms such as suspected, likely, concern for, or probable (associated with a specific diagnosis that is being evaluated, monitored, or treated as if it exists) are acceptable and can be coded in the inpatient setting, when documented at the time of discharge. Please use your independent medical judgment in providing your response. THIS QUERY IS PART OF THE PERMANENT MEDICAL RECORD
[2025-03-20 19:52] VITALS: BP 129/76; PULSE 74; RESP 18; TEMP 36.2; O2SAT 98
[2025-03-20 21:35] LABS: Glucose, Whole Blood 269 mg/dL (60-115)
[2025-03-21 02:55] VITALS: BP 131/62; PULSE 64; RESP 18; TEMP 36.1; O2SAT 97
[2025-03-21 07:17] LABS: Glucose, Whole Blood 264 mg/dL (60-115)
[2025-03-21 07:51] VITALS: BP 144/66; PULSE 75; RESP 12; TEMP 36.1; O2SAT 96
[2025-03-21] MEDS: Valproic Acid (as Sodium Salt) 500 MG in Dextrose 5 % 50 ML 52.5 MG IV ×2 (08:03→19:36)
[2025-03-21] MEDS: 0.9 % Sodium Chloride Flush 3 ML SYRINGE IVFLUSH ×3 (08:07→21:01)
--- NOTE | 2025-03-21 08:11 | PC.NURSE ---
Patient in bed with covers of head. Patient refused to take PO medications at this time. Well try again at a later time.
[2025-03-21] MEDS: Metoprolol Tartrate 12.5 MG HALFTAB PO ×2 (08:56→20:55)
[2025-03-21 12:11] LABS: Glucose, Whole Blood 239 mg/dL (60-115)
--- NOTE | 2025-03-21 12:53 | P.PNIM_ITS ---
Subjective Subjective Date of Service: 03/21/25 Interval History: Feels well today. No new complaints. Noting kirsten in place-wound healing well. 6 kirsten removed using staple extractor. No complaints or issues Review of Systems Review of Systems: Yes Unobtainable due to mental status Physical Exam 2 Exam: Exam: General: A&O x0; unable to determine orientation given patient's baseline mental status. Altered and confused at baseline Cardiac: S1, S2 auscultated with no S3/4, no MRG. Well perfused. Respiratory: Normal breath sounds auscultated throughout all lung zones, without wheezing, rales. Normal rate. GI/ : No abdominal pain on palpation, no masses or distentions. MSK: Normal ambulation without pain at bony prominences or musculature Neurological: Normal neurological examination on overview, without obvious CN II-XII abnormalities. Vital Signs: Vital Signs: Last Vital Signs Temp 96.9 F 03/21/25 07:51 Pulse 75 03/21/25 07:51 Resp 12 03/21/25 07:51 BP 144/66 H 03/21/25 07:51 Pulse Ox 96 03/21/25 07:51 O2 Del Method Room Air 03/21/25 07:51 O2 Flow Rate 3 03/07/25 23:35 BMI result Body Mass Index 23.3 Objective Data Active Medications Acetaminophen (Acetaminophen 325 Mg Tablet) 650 mg PO Q6H PRN PRN Reason: Headache/Pain, Scale 1-10 Al Hydroxide/Mg Hydroxide (Magnesium Hydrox/Alum Hydrox 30 Ml Oral.Susp) 30 ml PO Q6H PRN PRN Reason: Heartburn/Nausea Last Admin: 03/20/25 15:11 Dose: 30 ml Documented By: KERRI Calcium Carbonate (Calcium Carbonate 750 Mg Tab.Chew) 750 mg PO Q4H PRN PRN Reason: Heartburn Clozapine (Clozapine 25 Mg Tablet) 50 mg PO TID [facility] Last Admin: 03/21/25 08:56 Dose: 50 mg Documented By: BURJuaquin Dextrose (Dextrose 50 % 25 Gm/50 Ml Syringe) 25 gm IVPUSH Q15M PRN; Protocol PRN Reason: per Hypoglycemia Standing Ord. Docusate Sodium (Docusate Sodium 100 Mg/10 Ml Liquid) 100 mg G-TUBE BID [facility], [facility] Last Admin: 03/21/25 09:05 Dose: Not Given Documented By: OTTONIEL Non-Admin Reason: Patient Refused Enoxaparin Sodium (Enoxaparin Sodium 40 Mg/0.4 Ml Syringe) 40 mg SUBCUT Q24H NATE Last Admin: 03/21/25 09:01 Dose: 40 mg Documented By: OTTONIEL Fluoxetine HCl (Fluoxetine Hcl 20 Mg Capsule) 40 mg PO BEDTIME NATE On Hold: 02/22/25 14:23 Last Admin: 02/21/25 22:23 Dose: Not Given Documented By: PAPITO Non-Admin Reason: pt refused Glucagon (Glucagon Hcl 1 Mg Vial) 1 mg IM Q20M PRN PRN Reason: low BG Glucose (Glucose Gel 15 Gm Gel..Gram.) 15 gm PO Q15M PRN; Protocol PRN Reason: per Hypoglycemia Standing Ord. Hydralazine HCl (Hydralazine Hcl 20 Mg/Ml Vial) 5 mg IVPUSH Q6H PRN; Protocol PRN Reason: htn Last Admin: 02/23/25 17:30 Dose: 5 mg Documented By: JAYME Valproic Acid 500 mg/ Dextrose 55 mls @ 52.5 mls/hr IV Q12H [facility] Last Infusion: 03/21/25 09:06 Dose: Infused Documented By: OTTONIEL Insulin Glargine (Insulin Glargine,Hum.Rec.Anlog 100 Unit/Ml 10 Ml Vial) 30 unit SUBCUT DAILY NATE On Hold: 03/14/25 09:00 Insulin Human Lispro (Insulin Lispro 100 Unit/Ml 3 Ml Vial) 0 unit SUBCUT QIDACHS [facility], [facility]; Protocol Last Admin: 03/21/25 12:45 Dose: 4 unit Documented By: OTTONIEL Magnesium Hydroxide (Milk Of Magnesia 30 Ml Oral.Susp) 30 ml PO DAILY PRN PRN Reason: Constipation Melatonin (Melatonin 3 Mg Tablet) 6 mg PO BEDTIME PRN PRN Reason: Insomnia Last Admin: 03/19/25 19:48 Dose: 6 mg Documented By: WES Metoprolol Tartrate (Metoprolol Tartrate 12.5 Mg Halftab) 12.5 mg PO BID NATE; Protocol Last Admin: 03/21/25 08:56 Dose: 12.5 mg Documented By: OTTONIEL Naloxone HCl (Naloxone Hcl 0.4 Mg/Ml Vial) 0.04 mg IVPUSH Q5M PRN PRN Reason: Excessive sedation or RR < 8 Nystatin (Nystatin Powder 15 Gm Bottle) 1 appl TOPICAL BID [facility], [facility]; Protocol Last Admin: 03/21/25 09:05 Dose: 1 appl Documented By: OTTONIEL Omeprazole (Omeprazole/Na Bicarb Oral Susp 20 Mg/10 Ml Ud Cup) 20 mg G-TUBE DAILY@0630 [facility] Last Admin: 03/21/25 06:33 Dose: Not Given Documented By: RAMIRO Non-Admin Reason: Patient Refused Perphenazine (Perphenazine 2 Mg Tablet) 2 mg PO BID [facility] Last Admin: 03/21/25 08:56 Dose: 2 mg Documented By: OTTONIEL Perphenazine (Perphenazine 4 Mg Tablet) 4 mg PO BID [facility] Last Admin: 03/21/25 08:56 Dose: 4 mg Documented By: OTTONIEL Senna (Sennosides 8.6 Mg Tablet) 8.6 mg PO DAILY [facility] Last Admin: 03/21/25 08:57 Dose: 8.6 mg Documented By: OTTONIEL Sodium Biphosphate/Sodium Phosphate (Sodium Phosphate,[place]-Dibasic 133 Ml Enema) 133 ml [place] DAILY PRN PRN Reason: Constipation Last Admin: 03/11/25 12:18 Dose: 133 ml Documented By: STEPHANE Sodium Chloride (0.9 % Sodium Chloride Flush 3 Ml Syringe) 3 ml IVFLUSH QSHIFT [facility] Last Admin: 03/21/25 08:07 Dose: 3 ml Documented By: OTTONIEL Trazodone HCl (Trazodone Hcl 50 Mg Tablet) 50 mg PO BEDTIME MRX1 PRN PRN Reason: Insomnia Last Admin: 03/20/25 21:26 Dose: 50 mg Documented By: RAMIRO Labs 03/04/25 06:46 03/06/25 06:31 Labs: Laboratory Results - last 24 hr 03/20/25 03/20/25 03/21/25 16:22 21:20 07:10 POC Glucose 146 H 269 H 264 H 03/21/25 12:07 POC Glucose 239 H Assessment and Plan (1) Intentional self-harm: Status: Acute (2) Psychosis: Status: Acute (3) Verbalizes suicidal thoughts: Status: Acute (4) Schizoaffective disorder: Status: Acute (5) Fall: Status: Acute (6) Alzheimer's dementia: Status: Acute Plan 69M PMH schizoaffective disorder with psychotic features, major depressive disorder, diabetes, GERD presented to the ED on 02/14/2025 for multiple falls, admitted for acute multifactorial encephalopathy, complicated by acute hypoxic respiratory failure due to aspiration pneumonia 02/16/25. Acute toxic/metabolic encephalopathy Acute hypoxic respiratory failure Aspiration pneumonia Completed IV Unasyn . Blood cultures neg , weaned O2 as tolerated, aspiration precautions, off oxygen, goal saturation 95% Seen by speech and swallow-purred /nector thick. Had had very poor intake, so was using TPN Underwent gtube 03/02/25. Holding tube feed whilst able to eat. Able to intake p.o.. Oral feed with NDD2 and [place] thick Schizoaffective disorder with psychotic features He intermittently refuses psych medsand vital/rx continue present meds: Fuoxetine, Trilafon, depakote, Clozaril, Valiui Psych follow up PRN Diabetes, uncontrolled increase lantus to 30, continue ssi HTN No management currently WNL [facility] [employer] - VTE: Enoxaparin - CODE STATUS: Full code - DIET: NDD2 and [place] thick - DISPOSITION: Pending placement Total time managing care of this patient today: 35 minutes. Quality Stroke Does the patient have a stroke diagnosis?: No VTE Prior VTE?: No VTE Risk Level:: Medical - moderate - high VTE Device Contraindication: Treatment Not Indicated VTE Drug Contraindication: N/A - Med Ordered
[2025-03-21 15:52] VITALS: BP 120/56; PULSE 69; RESP 16; TEMP 36.4; O2SAT 98
[2025-03-21 16:19] LABS: Glucose, Whole Blood 262 mg/dL (60-115)
--- NOTE | 2025-03-21 17:18 | PC.NURSE ---
Patient has G-tube connected to pump for 240ml water flush every 8 hours. Order no longer active, discussed with provider Jarad in person and waiting order, via [employer] provider told for nurse place order for 240mL water flush every 8 hours, order placed. New set up placed on pump for water flushes.
[2025-03-21 19:04] VITALS: BP 119/54; PULSE 76; RESP 16; TEMP 36.5; O2SAT 96
[2025-03-21 20:19] LABS: Glucose, Whole Blood 267 mg/dL (60-115)
[2025-03-22 03:57] VITALS: BP 121/59; PULSE 63; RESP 18; TEMP 36; O2SAT 95
[2025-03-22] MEDS: Valproic Acid (as Sodium Salt) 500 MG in Dextrose 5 % 50 ML 52.5 MG IV ×2 (07:40→19:26)
[2025-03-22] MEDS: 0.9 % Sodium Chloride Flush 3 ML SYRINGE IVFLUSH ×3 (07:58→19:26)
[2025-03-22 07:59] VITALS: BP 132/63; PULSE 64; RESP 18; TEMP 36; O2SAT 96
[2025-03-22 08:19] LABS: Glucose, Whole Blood 142 mg/dL (60-115)
[2025-03-22] MEDS: Metoprolol Tartrate 12.5 MG HALFTAB PO ×2 (08:51→20:41)
--- NOTE | 2025-03-22 09:15 | HO.SKINPHOTO ---
Location: Right heel. Unblanchable area. Dry skin surrounding area. Barrier cream applied to surrounding area. Mepelex changed. Heels elevated off bed with pillow.
[2025-03-22 11:47] LABS: Glucose, Whole Blood 197 mg/dL (60-115)
--- NOTE | 2025-03-22 14:54 | P.PNIM_ITS ---
Subjective Subjective Date of Service: 03/22/25 Interval History: No new issues today. No complaints. Eating and drinking well. Stooling and urinating well Review of Systems Review of Systems: Yes Unobtainable due to mental status Physical Exam 2 Exam: Exam: General: A&O x0; unable to determine orientation given patient's baseline mental status. Altered and confused at baseline Cardiac: S1, S2 auscultated with no S3/4, no MRG. Well perfused. Respiratory: Normal breath sounds auscultated throughout all lung zones, without wheezing, rales. Normal rate. GI/ : No abdominal pain on palpation, no masses or distentions. MSK: Normal ambulation without pain at bony prominences or musculature Neurological: Normal neurological examination on overview, without obvious CN II-XII abnormalities. Vital Signs: Vital Signs: Last Vital Signs Temp 96.8 F 03/22/25 07:59 Pulse 64 03/22/25 07:59 Resp 18 03/22/25 07:59 BP 132/63 03/22/25 07:59 Pulse Ox 96 03/22/25 07:59 O2 Del Method Room Air 03/22/25 07:59 O2 Flow Rate 3 03/07/25 23:35 BMI result Body Mass Index 23.3 Objective Data Active Medications Acetaminophen (Acetaminophen 325 Mg Tablet) 650 mg PO Q6H PRN PRN Reason: Headache/Pain, Scale 1-10 Al Hydroxide/Mg Hydroxide (Magnesium Hydrox/Alum Hydrox 30 Ml Oral.Susp) 30 ml PO Q6H PRN PRN Reason: Heartburn/Nausea Last Admin: 03/20/25 15:11 Dose: 30 ml Documented By: KERRI Calcium Carbonate (Calcium Carbonate 750 Mg Tab.Chew) 750 mg PO Q4H PRN PRN Reason: Heartburn Clozapine (Clozapine 25 Mg Tablet) 50 mg PO TID [facility] Last Admin: 03/22/25 14:34 Dose: 50 mg Documented By: OTTONIEL Dextrose (Dextrose 50 % 25 Gm/50 Ml Syringe) 25 gm IVPUSH Q15M PRN; Protocol PRN Reason: per Hypoglycemia Standing Ord. Docusate Sodium (Docusate Sodium 100 Mg/10 Ml Liquid) 100 mg G-TUBE BID [facility] Last Admin: 03/22/25 07:46 Dose: 100 mg Documented By: OTTONIEL Enoxaparin Sodium (Enoxaparin Sodium 40 Mg/0.4 Ml Syringe) 40 mg SUBCUT Q24H NATE Last Admin: 03/22/25 08:51 Dose: 40 mg Documented By: OTTONIEL Fluoxetine HCl (Fluoxetine Hcl 20 Mg Capsule) 40 mg PO BEDTIME NATE On Hold: 02/22/25 14:23 Last Admin: 02/21/25 22:23 Dose: Not Given Documented By: PAPITO Non-Admin Reason: pt refused Glucagon (Glucagon Hcl 1 Mg Vial) 1 mg IM Q20M PRN PRN Reason: low BG Glucose (Glucose Gel 15 Gm Gel..Gram.) 15 gm PO Q15M PRN; Protocol PRN Reason: per Hypoglycemia Standing Ord. Hydralazine HCl (Hydralazine Hcl 20 Mg/Ml Vial) 5 mg IVPUSH Q6H PRN; Protocol PRN Reason: htn Last Admin: 02/23/25 17:30 Dose: 5 mg Documented By: JAYME Valproic Acid 500 mg/ Dextrose 55 mls @ 52.5 mls/hr IV Q12H [facility] Last Infusion: 03/22/25 08:51 Dose: Infused Documented By: OTTONIEL Insulin Glargine (Insulin Glargine,Hum.Rec.Anlog 100 Unit/Ml 10 Ml Vial) 30 unit SUBCUT DAILY [facility] On Hold: 03/14/25 09:00 Insulin Human Lispro (Insulin Lispro 100 Unit/Ml 3 Ml Vial) 0 unit SUBCUT QIDACHS [facility]; Protocol Last Admin: 03/22/25 12:09 Dose: 2 unit Documented By: OTTONIEL Magnesium Hydroxide (Milk Of Magnesia 30 Ml Oral.Susp) 30 ml PO DAILY PRN PRN Reason: Constipation Melatonin (Melatonin 3 Mg Tablet) 6 mg PO BEDTIME PRN PRN Reason: Insomnia Last Admin: 03/19/25 19:48 Dose: 6 mg Documented By: WES Metoprolol Tartrate (Metoprolol Tartrate 12.5 Mg Halftab) 12.5 mg PO BID [facility]; Protocol Last Admin: 03/22/25 08:51 Dose: 12.5 mg Documented By: OTTONIEL Naloxone HCl (Naloxone Hcl 0.4 Mg/Ml Vial) 0.04 mg IVPUSH Q5M PRN PRN Reason: Excessive sedation or RR < 8 Nystatin (Nystatin Powder 15 Gm Bottle) 1 appl TOPICAL BID [facility]; Protocol Last Admin: 03/22/25 08:51 Dose: 1 appl Documented By: OTTONIEL Omeprazole (Omeprazole/Na Bicarb Oral Susp 20 Mg/10 Ml Ud Cup) 20 mg G-TUBE DAILY@0630 [facility] Last Admin: 03/22/25 06:14 Dose: Not Given Documented By: RAMIRO Non-Admin Reason: Patient Refused Perphenazine (Perphenazine 2 Mg Tablet) 2 mg PO BID [facility] Last Admin: 03/22/25 08:51 Dose: 2 mg Documented By: OTTONIEL Perphenazine (Perphenazine 4 Mg Tablet) 4 mg PO BID [facility] Last Admin: 03/22/25 08:51 Dose: 4 mg Documented By: OTTONIEL Senna (Sennosides 8.6 Mg Tablet) 8.6 mg PO DAILY [facility] Last Admin: 03/22/25 08:51 Dose: 8.6 mg Documented By: OTTONIEL Sodium Biphosphate/Sodium Phosphate (Sodium Phosphate,[place]-Dibasic 133 Ml Enema) 133 ml [place] DAILY PRN PRN Reason: Constipation Last Admin: 03/11/25 12:18 Dose: 133 ml Documented By: STEPHANE Sodium Chloride (0.9 % Sodium Chloride Flush 3 Ml Syringe) 3 ml IVFLUSH QSHIFT [facility] Last Admin: 03/22/25 07:58 Dose: 3 ml Documented By: OTTONIEL Trazodone HCl (Trazodone Hcl 50 Mg Tablet) 50 mg PO BEDTIME MRX1 PRN PRN Reason: Insomnia Last Admin: 03/20/25 21:26 Dose: 50 mg Documented By: RAMIRO Labs 03/04/25 06:46 03/06/25 06:31 Labs: Laboratory Results - last 24 hr 03/21/25 03/21/25 03/22/25 16:15 20:14 08:06 POC Glucose 262 H 267 H 142 H 03/22/25 11:37 POC Glucose 197 H Assessment and Plan (1) Fall: Status: Acute (2) Alzheimer's dementia: Status: Acute (3) Schizoaffective disorder: Status: Acute Plan 69M PMH schizoaffective disorder with psychotic features, major depressive disorder, diabetes, GERD presented to the ED on 02/14/2025 for multiple falls, admitted for acute multifactorial encephalopathy, complicated by acute hypoxic respiratory failure due to aspiration pneumonia 02/16/25. Acute toxic/metabolic encephalopathy Acute hypoxic respiratory failure Aspiration pneumonia Completed IV Unasyn . Blood cultures neg , weaned O2 as tolerated, aspiration precautions, off oxygen, goal saturation 95% Seen by speech and swallow-purred /nector thick. Had had very poor intake, so was using TPN Underwent gtube 03/02/25. Holding tube feed whilst able to eat. Able to intake p.o.. Oral feed with NDD2 and [place] thick Schizoaffective disorder with psychotic features He intermittently refuses psych medsand vital/rx continue present meds: Fuoxetine, Trilafon, depakote, Clozaril, Valiui Psych follow up PRN Diabetes, uncontrolled lantus to 30, continue ssi HTN No management currently WNL [facility] [employer] - VTE: Enoxaparin - CODE STATUS: Full code - DIET: NDD2 and [place] thick - DISPOSITION: Pending placement Quality Stroke Does the patient have a stroke diagnosis?: No VTE Prior VTE?: No VTE Risk Level:: Medical - moderate - high VTE Device Contraindication: Treatment Not Indicated VTE Drug Contraindication: N/A - Med Ordered
[2025-03-22 15:35] VITALS: BP 112/59; PULSE 70; RESP 16; TEMP 36.6; O2SAT 97
[2025-03-22 16:02] LABS: Glucose, Whole Blood 276 mg/dL (60-115)
[2025-03-22 19:28] VITALS: BP 110/60; PULSE 72; RESP 18; TEMP 36.6; O2SAT 97
[2025-03-22 20:21] LABS: Glucose, Whole Blood 209 mg/dL (60-115)
[2025-03-23 03:55] VITALS: BP 132/60; PULSE 66; RESP 18; TEMP 36.4; O2SAT 96
[2025-03-23] MEDS: Omeprazole/Na Bicarb Oral Susp 20 MG/10 ML UD Cup G-TUBE (06:34)
[2025-03-23 07:43] LABS: Glucose, Whole Blood 133 mg/dL (60-115)
[2025-03-23 08:00] VITALS: BP 136/64; PULSE 62; RESP 18; TEMP 36.6; O2SAT 96
[2025-03-23] MEDS: Valproic Acid (as Sodium Salt) 500 MG in Dextrose 5 % 50 ML 52.5 MG IV ×2 (08:04→19:45)
[2025-03-23] MEDS: 0.9 % Sodium Chloride Flush 3 ML SYRINGE IVFLUSH ×2 (08:09→17:00)
[2025-03-23] MEDS: Metoprolol Tartrate 12.5 MG HALFTAB PO ×2 (08:10→21:16)
[2025-03-23 12:00] LABS: Glucose, Whole Blood 188 mg/dL (60-115)
--- NOTE | 2025-03-23 13:04 | HO.PM.IMPN ---
Subjective Subjective Date of Service: 03/23/25 Interval History: no new issues Review of Systems Review of Systems: Yes Unobtainable due to mental status Physical Exam Exam: Exam: General: A&O x0; unable to determine orientation given patient's baseline mental status. Altered and confused at baseline Cardiac: S1, S2 auscultated with no S3/4, no MRG. Well perfused. Respiratory: Normal breath sounds auscultated throughout all lung zones, without wheezing, rales. Normal rate. GI/ : No abdominal pain on palpation, no masses or distentions. MSK: Normal ambulation without pain at bony prominences or musculature Neurological: Normal neurological examination on overview, without obvious CN II-XII abnormalities. Vital Signs: Vital Signs: Last Vital Signs Temp 97.8 F 03/23/25 08:00 Pulse 62 03/23/25 08:00 Resp 18 03/23/25 08:00 BP 136/64 03/23/25 08:00 Pulse Ox 96 03/23/25 08:00 O2 Del Method Room Air 03/23/25 08:00 O2 Flow Rate 3 03/07/25 23:35 BMI result Body Mass Index 23.3 Objective Data Active Medications Acetaminophen (Acetaminophen 325 Mg Tablet) 650 mg PO Q6H PRN PRN Reason: Headache/Pain, Scale 1-10 Al Hydroxide/Mg Hydroxide (Magnesium Hydrox/Alum Hydrox 30 Ml Oral.Susp) 30 ml PO Q6H PRN PRN Reason: Heartburn/Nausea Last Admin: 03/20/25 15:11 Dose: 30 ml Documented By: KERRI Calcium Carbonate (Calcium Carbonate 750 Mg Tab.Chew) 750 mg PO Q4H PRN PRN Reason: Heartburn Clozapine (Clozapine 25 Mg Tablet) 50 mg PO TID [facility] Last Admin: 03/23/25 08:11 Dose: 50 mg Documented By: DEONNA Dextrose (Dextrose 50 % 25 Gm/50 Ml Syringe) 25 gm IVPUSH Q15M PRN; Protocol PRN Reason: per Hypoglycemia Standing Ord. Docusate Sodium (Docusate Sodium 100 Mg/10 Ml Liquid) 100 mg G-TUBE BID [facility] Last Admin: 03/23/25 08:15 Dose: Not Given Documented By: DEONNA Non-Admin Reason: Patient Refused Enoxaparin Sodium (Enoxaparin Sodium 40 Mg/0.4 Ml Syringe) 40 mg SUBCUT Q24H NATE Last Admin: 03/23/25 10:17 Dose: 40 mg Documented By: DEONNA Fluoxetine HCl (Fluoxetine Hcl 20 Mg Capsule) 40 mg PO BEDTIME NATE On Hold: 02/22/25 14:23 Last Admin: 02/21/25 22:23 Dose: Not Given Documented By: APPITO Non-Admin Reason: pt refused Glucagon (Glucagon Hcl 1 Mg Vial) 1 mg IM Q20M PRN PRN Reason: low BG Glucose (Glucose Gel 15 Gm Gel..Gram.) 15 gm PO Q15M PRN; Protocol PRN Reason: per Hypoglycemia Standing Ord. Hydralazine HCl (Hydralazine Hcl 20 Mg/Ml Vial) 5 mg IVPUSH Q6H PRN; Protocol PRN Reason: htn Last Admin: 02/23/25 17:30 Dose: 5 mg Documented By: JAYME Valproic Acid 500 mg/ Dextrose 55 mls @ 52.5 mls/hr IV Q12H [facility] Last Infusion: 03/23/25 09:26 Dose: Infused Documented By: DEONNA Insulin Glargine (Insulin Glargine,Hum.Rec.Anlog 100 Unit/Ml 10 Ml Vial) 30 unit SUBCUT DAILY [facility] On Hold: 03/14/25 09:00 Insulin Human Lispro (Insulin Lispro 100 Unit/Ml 3 Ml Vial) 0 unit SUBCUT QIDACHS [facility]; Protocol Last Admin: 03/23/25 12:32 Dose: 2 unit Documented By: DEONNA Magnesium Hydroxide (Milk Of Magnesia 30 Ml Oral.Susp) 30 ml PO DAILY PRN PRN Reason: Constipation Melatonin (Melatonin 3 Mg Tablet) 6 mg PO BEDTIME PRN PRN Reason: Insomnia Last Admin: 03/19/25 19:48 Dose: 6 mg Documented By: LEFEBBRAD Metoprolol Tartrate (Metoprolol Tartrate 12.5 Mg Halftab) 12.5 mg PO BID NATE; Protocol Last Admin: 03/23/25 08:10 Dose: 12.5 mg Documented By: DEONNA Naloxone HCl (Naloxone Hcl 0.4 Mg/Ml Vial) 0.04 mg IVPUSH Q5M PRN PRN Reason: Excessive sedation or RR < 8 Nystatin (Nystatin Powder 15 Gm Bottle) 1 appl TOPICAL BID NATE; Protocol Last Admin: 03/23/25 08:11 Dose: 1 appl Documented By: DEONNA Omeprazole (Omeprazole/Na Bicarb Oral Susp 20 Mg/10 Ml Ud Cup) 20 mg G-TUBE DAILY@0630 [facility] Last Admin: 03/23/25 06:34 Dose: 20 mg Documented By: RAMIRO Perphenazine (Perphenazine 2 Mg Tablet) 2 mg PO BID [facility] Last Admin: 03/23/25 08:10 Dose: 2 mg Documented By: DEONNA Perphenazine (Perphenazine 4 Mg Tablet) 4 mg PO BID [facility] Last Admin: 03/23/25 08:10 Dose: 4 mg Documented By: DEONNA Senna (Sennosides 8.6 Mg Tablet) 8.6 mg PO DAILY [facility] Last Admin: 03/23/25 08:10 Dose: 8.6 mg Documented By: DEONNA Sodium Biphosphate/Sodium Phosphate (Sodium Phosphate,[place]-Dibasic 133 Ml Enema) 133 ml [place] DAILY PRN PRN Reason: Constipation Last Admin: 03/11/25 12:18 Dose: 133 ml Documented By: STEPHANE Sodium Chloride (0.9 % Sodium Chloride Flush 3 Ml Syringe) 3 ml IVFLUSH QSHIFT [facility] Last Admin: 03/23/25 08:09 Dose: 3 ml Documented By: DEONNA Trazodone HCl (Trazodone Hcl 50 Mg Tablet) 50 mg PO BEDTIME MRX1 PRN PRN Reason: Insomnia Last Admin: 03/20/25 21:26 Dose: 50 mg Documented By: RAMIRO Labs 03/04/25 06:46 03/06/25 06:31 Labs: Laboratory Results - last 24 hr 03/22/25 03/22/25 03/23/25 15:51 20:11 07:38 POC Glucose 276 H 209 H 133 H 03/23/25 11:56 POC Glucose 188 H Assessment and Plan (1) Fall: Status: Acute (2) Alzheimer's dementia: Status: Acute (3) Schizoaffective disorder: Status: Acute Plan 69M PMH schizoaffective disorder with psychotic features, major depressive disorder, diabetes, GERD presented to the ED on 02/14/2025 for multiple falls, admitted for acute multifactorial encephalopathy, complicated by acute hypoxic respiratory failure due to aspiration pneumonia 02/16/25. Acute toxic/metabolic encephalopathy Acute hypoxic respiratory failure Aspiration pneumonia Completed IV Unasyn . Blood cultures neg , weaned O2 as tolerated, aspiration precautions, off oxygen, goal saturation 95% Seen by speech and swallow-purred /nector thick. Had had very poor intake, so was using TPN Underwent gtube 03/02/25. Holding tube feed whilst able to eat. Able to intake p.o.. Oral feed with NDD2 and [place] thick Schizoaffective disorder with psychotic features He intermittently refuses psych meds and vital/rx continue present meds: Fuoxetine, Trilafon, depakote, Clozaril, Valiui Psych follow up PRN Diabetes, uncontrolled lantus to 30, continue ssi HTN No management currently WNL [facility] [employer] - VTE: Enoxaparin - CODE STATUS: Full code - DIET: NDD2 and [place] thick - DISPOSITION: Pending placement Quality Stroke Does the patient have a stroke diagnosis?: No VTE Prior VTE?: No VTE Risk Level:: Medical - moderate - high VTE Device Contraindication: Treatment Not Indicated VTE Drug Contraindication: N/A - Med Ordered
[2025-03-23 16:00] VITALS: BP 132/62; PULSE 64; RESP 19; TEMP 35.9; O2SAT 97
[2025-03-23 16:52] LABS: Glucose, Whole Blood 185 mg/dL (60-115)
[2025-03-23 20:00] VITALS: BP 131/59; PULSE 88; RESP 20; TEMP 35.9; O2SAT 98
[2025-03-23 21:03] LABS: Glucose, Whole Blood 184 mg/dL (60-115)
[2025-03-24 03:56] VITALS: BP 128/62; PULSE 82; RESP 20; TEMP 36.3; O2SAT 94
[2025-03-24] MEDS: Omeprazole/Na Bicarb Oral Susp 20 MG/10 ML UD Cup G-TUBE (06:26)
[2025-03-24 07:31] VITALS: BP 143/67; PULSE 59; RESP 16; TEMP 36.6; O2SAT 97
[2025-03-24 07:33] LABS: Glucose, Whole Blood 153 mg/dL (60-115)
[2025-03-24] MEDS: Metoprolol Tartrate 12.5 MG HALFTAB PO ×2 (07:46→21:41)
[2025-03-24] MEDS: Valproic Acid (as Sodium Salt) 500 MG in Dextrose 5 % 50 ML 52.5 MG IV ×2 (07:47→21:43)
--- NOTE | 2025-03-24 10:22 | HO.PM.IMPN ---
Subjective Subjective Date of Service: 03/24/25 Interval History: No new issues Review of Systems Review of Systems: Yes Unobtainable due to mental status Physical Exam Exam: Exam: General: A&O x0; unable to determine orientation given patient's baseline mental status. Altered and confused at baseline Cardiac: S1, S2 auscultated with no S3/4, no MRG. Well perfused. Respiratory: Normal breath sounds auscultated throughout all lung zones, without wheezing, rales. Normal rate. GI/ : No abdominal pain on palpation, no masses or distentions. MSK: Normal ambulation without pain at bony prominences or musculature Neurological: Normal neurological examination on overview, without obvious CN II-XII abnormalities. Vital Signs: Vital Signs: Last Vital Signs Temp 97.8 F 03/24/25 07:31 Pulse 59 03/24/25 07:31 Resp 16 03/24/25 07:31 BP 143/67 H 03/24/25 07:31 Pulse Ox 97 03/24/25 07:31 O2 Del Method Room Air 03/24/25 07:31 O2 Flow Rate 3 03/07/25 23:35 BMI result Body Mass Index 23.3 Objective Data Active Medications Acetaminophen (Acetaminophen 325 Mg Tablet) 650 mg PO Q6H PRN PRN Reason: Headache/Pain, Scale 1-10 Al Hydroxide/Mg Hydroxide (Magnesium Hydrox/Alum Hydrox 30 Ml Oral.Susp) 30 ml PO Q6H PRN PRN Reason: Heartburn/Nausea Last Admin: 03/20/25 15:11 Dose: 30 ml Documented By: KERRI Calcium Carbonate (Calcium Carbonate 750 Mg Tab.Chew) 750 mg PO Q4H PRN PRN Reason: Heartburn Clozapine (Clozapine 25 Mg Tablet) 50 mg PO TID [facility] Last Admin: 03/24/25 07:46 Dose: 50 mg Documented By: STEPHANE Dextrose (Dextrose 50 % 25 Gm/50 Ml Syringe) 25 gm IVPUSH Q15M PRN; Protocol PRN Reason: per Hypoglycemia Standing Ord. Docusate Sodium (Docusate Sodium 100 Mg/10 Ml Liquid) 100 mg G-TUBE BID [facility] Last Admin: 03/24/25 07:46 Dose: 100 mg Documented By: STEPHANE Enoxaparin Sodium (Enoxaparin Sodium 40 Mg/0.4 Ml Syringe) 40 mg SUBCUT Q24H NATE Last Admin: 03/24/25 07:45 Dose: 40 mg Documented By: STEPHANE Fluoxetine HCl (Fluoxetine Hcl 20 Mg Capsule) 40 mg PO BEDTIME NATE On Hold: 02/22/25 14:23 Last Admin: 02/21/25 22:23 Dose: Not Given Documented By: PAPITO Non-Admin Reason: pt refused Glucagon (Glucagon Hcl 1 Mg Vial) 1 mg IM Q20M PRN PRN Reason: low BG Glucose (Glucose Gel 15 Gm Gel..Gram.) 15 gm PO Q15M PRN; Protocol PRN Reason: per Hypoglycemia Standing Ord. Hydralazine HCl (Hydralazine Hcl 20 Mg/Ml Vial) 5 mg IVPUSH Q6H PRN; Protocol PRN Reason: htn Last Admin: 02/23/25 17:30 Dose: 5 mg Documented By: JAYME Valproic Acid 500 mg/ Dextrose 55 mls @ 52.5 mls/hr IV Q12H [facility] Last Infusion: 03/24/25 08:58 Dose: Infused Documented By: STEPHANE Insulin Glargine (Insulin Glargine,Hum.Rec.Anlog 100 Unit/Ml 10 Ml Vial) 30 unit SUBCUT DAILY [facility] On Hold: 03/14/25 09:00 Insulin Human Lispro (Insulin Lispro 100 Unit/Ml 3 Ml Vial) 0 unit SUBCUT QIDACHS [facility]; Protocol Last Admin: 03/24/25 07:46 Dose: 2 unit Documented By: STEPHANE Magnesium Hydroxide (Milk Of Magnesia 30 Ml Oral.Susp) 30 ml PO DAILY PRN PRN Reason: Constipation Melatonin (Melatonin 3 Mg Tablet) 6 mg PO BEDTIME PRN PRN Reason: Insomnia Last Admin: 03/19/25 19:48 Dose: 6 mg Documented By: LEFEBBRAD Metoprolol Tartrate (Metoprolol Tartrate 12.5 Mg Halftab) 12.5 mg PO BID [facility]; Protocol Last Admin: 03/24/25 07:46 Dose: 12.5 mg Documented By: STEPHANE Naloxone HCl (Naloxone Hcl 0.4 Mg/Ml Vial) 0.04 mg IVPUSH Q5M PRN PRN Reason: Excessive sedation or RR < 8 Nystatin (Nystatin Powder 15 Gm Bottle) 1 appl TOPICAL BID [facility]; Protocol Last Admin: 03/24/25 08:57 Dose: 1 appl Documented By: STEPHANE Omeprazole (Omeprazole/Na Bicarb Oral Susp 20 Mg/10 Ml Ud Cup) 20 mg G-TUBE DAILY@0630 [facility] Last Admin: 03/24/25 06:26 Dose: 20 mg Documented By: OBED Perphenazine (Perphenazine 2 Mg Tablet) 2 mg PO BID [facility] Last Admin: 03/24/25 07:46 Dose: 2 mg Documented By: STEPHANE Perphenazine (Perphenazine 4 Mg Tablet) 4 mg PO BID [facility] Last Admin: 03/24/25 07:46 Dose: 4 mg Documented By: STEPHANE Senna (Sennosides 8.6 Mg Tablet) 8.6 mg PO DAILY [facility] Last Admin: 03/24/25 07:46 Dose: 8.6 mg Documented By: STEPHANE Sodium Biphosphate/Sodium Phosphate (Sodium Phosphate,[place]-Dibasic 133 Ml Enema) 133 ml [place] DAILY PRN PRN Reason: Constipation Last Admin: 03/11/25 12:18 Dose: 133 ml Documented By: STEPHANE Sodium Chloride (0.9 % Sodium Chloride Flush 3 Ml Syringe) 3 ml IVFLUSH QSHIFT [facility] Last Admin: 03/24/25 07:57 Dose: Not Given Documented By: STEPHANE Non-Admin Reason: IV Running Trazodone HCl (Trazodone Hcl 50 Mg Tablet) 50 mg PO BEDTIME MRX1 PRN PRN Reason: Insomnia Last Admin: 03/20/25 21:26 Dose: 50 mg Documented By: RAMIRO Labs 03/04/25 06:46 03/06/25 06:31 Labs: Laboratory Results - last 24 hr 03/23/25 03/23/25 03/23/25 11:56 16:40 20:57 POC Glucose 188 H 185 H 184 H 03/24/25 07:30 POC Glucose 153 H Assessment and Plan (1) Fall: Status: Acute (2) Alzheimer's dementia: Status: Acute (3) Schizoaffective disorder: Status: Acute Plan 69M PMH schizoaffective disorder with psychotic features, major depressive disorder, diabetes, GERD presented to the ED on 02/14/2025 for multiple falls, admitted for acute multifactorial encephalopathy, complicated by acute hypoxic respiratory failure due to aspiration pneumonia 02/16/25. Acute toxic/metabolic encephalopathy Acute hypoxic respiratory failure Aspiration pneumonia Completed IV Unasyn . Blood cultures neg , weaned O2 as tolerated, aspiration precautions, off oxygen, goal saturation 95% Seen by speech and swallow-purred /nector thick. Had had very poor intake, so was using TPN Underwent gtube 03/02/25. Holding tube feed whilst able to eat. Able to intake p.o.. Oral feed with NDD2 and [place] thick Schizoaffective disorder with psychotic features He intermittently refuses psych meds and vital/rx continue present meds: Fuoxetine, Trilafon, depakote, Clozaril, Valiui Psych follow up PRN Diabetes, uncontrolled lantus to 30, continue ssi HTN No management currently WNL [facility] - VTE: Enoxaparin - CODE STATUS: Full code - DIET: NDD2 and [place] thick - DISPOSITION: Pending placement Quality Stroke Does the patient have a stroke diagnosis?: No VTE Prior VTE?: No VTE Risk Level:: Medical - moderate - high VTE Device Contraindication: Treatment Not Indicated VTE Drug Contraindication: N/A - Med Ordered
[2025-03-24 11:08] LABS: Glucose, Whole Blood 131 mg/dL (60-115)
--- NOTE | 2025-03-24 11:50 | HO.WOUND ---
Wound Consult: follow up 69yr old? [place] [facility] [place] 02[place]16/25 18:06- See progress notes and H&P for detailed history.? Patient skin assessed during P&I Data collection 02/20/25 and noted for Right heel redness - Stage 1 Pressure Injury. ? Follow up today No new topical recommendations needed at this time may continue with off loading heel from surface of bed with pillows and heel foam dressing to protect from friction and aid in pressure redistribution. Peeled back for assessment and replaced, foams to both heels. Right heel 02/20/25 Right heel 02/23/25 Right Heel 03/03/25 Right Heel 03/11/25 03/24/25 Etiology: ?? Stage 1 Pressure Injury - resurfaced Measurements: 1cm x 1cm x 0cm Wound Bed: intact dry hyperpigmented tissue Drainage / Odor: None Edges: ? attached well defined [place] wound: pink blanchable tissue dry callused noted ? No Induration, Fluctuance or Warmth noted Goals of Treatment: ? Off load pressure - skin prep applied along with foam dressing No new topical recommendations needed at this time. Left heel intact blanchable redness and preventative foam applied. Elevated off of bed surface with pillows. Recommendations: 1. Turn and Reposition every 2 hours and as needed for patient comfort.? Use pillows or wedges to support off loading positions. 2. Off Load all bony prominences with use of pillows and heel boots if needed.? Apply Preventative foams where needed. ? 3. Monitor for incontinence and moisture control, use barrier creams when needed for prevention and treatment. 4. Provide adequate and supplemental nutrition.? 5. Order or Continue low air loss mattress. 6. When applicable maintain blood glucose levels per Providers order. Bilateral Heels? - Elevate heels off of bed surface with pillows.? Float heels off of bed surface with pillows.? Apply skin prep allow to dry.? Apply heel foam dressings, peel back and assess Q shift and change every 3 days and PRN. Re-consult wound care Nurse for wound deterioration or wound changes.
[2025-03-24 15:55] VITALS: BP 127/63; PULSE 70; RESP 18; TEMP 36.1; O2SAT 98
[2025-03-24 16:20] LABS: Glucose, Whole Blood 245 mg/dL (60-115)
[2025-03-24] MEDS: 0.9 % Sodium Chloride Flush 3 ML SYRINGE IVFLUSH (16:26)
[2025-03-24 19:43] VITALS: BP 117/58; PULSE 78; RESP 19; TEMP 36.2; O2SAT 96
[2025-03-24 20:52] LABS: Glucose, Whole Blood 210 mg/dL (60-115)
[2025-03-25 03:11] VITALS: BP 130/62; PULSE 65; RESP 18; TEMP 36.4; O2SAT 95
[2025-03-25 07:19] LABS: Glucose, Whole Blood 139 mg/dL (60-115)
[2025-03-25 07:38] VITALS: BP 128/61; PULSE 63; RESP 16; TEMP 36.5; O2SAT 97
[2025-03-25] MEDS: Metoprolol Tartrate 12.5 MG HALFTAB PO ×2 (07:45→20:08)
[2025-03-25] MEDS: Valproic Acid (as Sodium Salt) 500 MG in Dextrose 5 % 50 ML 52.5 MG IV ×2 (07:45→20:03)
--- NOTE | 2025-03-25 09:14 | HO.PM.IMPN ---
Subjective Subjective Date of Service: 03/25/25 Interval History: Stable with no new issues or concerns Review of Systems Review of Systems: Yes Unobtainable due to mental status Physical Exam Exam: Exam: General: Alert but confused at baseline, no acute distress Resp: CTA bilateral CVS: S1,S2,RRR GI: +BS, NT, no distention Skin: No rash Neuro: motor grossly intact Psych: appropriate affect Vital Signs: Vital Signs: Last Vital Signs Temp 97.7 F 03/25/25 07:38 Pulse 63 03/25/25 07:38 Resp 16 03/25/25 07:38 BP 128/61 03/25/25 07:38 Pulse Ox 97 03/25/25 07:38 O2 Del Method Room Air 03/25/25 07:38 O2 Flow Rate 3 03/07/25 23:35 BMI result Body Mass Index 23.3 Objective Data Active Medications Acetaminophen (Acetaminophen 325 Mg Tablet) 650 mg PO Q6H PRN PRN Reason: Headache/Pain, Scale 1-10 Al Hydroxide/Mg Hydroxide (Magnesium Hydrox/Alum Hydrox 30 Ml Oral.Susp) 30 ml PO Q6H PRN PRN Reason: Heartburn/Nausea Last Admin: 03/20/25 15:11 Dose: 30 ml Documented By: KERRI Calcium Carbonate (Calcium Carbonate 750 Mg Tab.Chew) 750 mg PO Q4H PRN PRN Reason: Heartburn Clozapine (Clozapine 25 Mg Tablet) 50 mg PO TID [facility] Last Admin: 03/25/25 07:46 Dose: 50 mg Documented By: STEPHANE Dextrose (Dextrose 50 % 25 Gm/50 Ml Syringe) 25 gm IVPUSH Q15M PRN; Protocol PRN Reason: per Hypoglycemia Standing Ord. Docusate Sodium (Docusate Sodium 100 Mg/10 Ml Liquid) 100 mg G-TUBE BID [facility] Last Admin: 03/25/25 07:52 Dose: Not Given Documented By: STEPHANE Non-Admin Reason: Patient Refused Enoxaparin Sodium (Enoxaparin Sodium 40 Mg/0.4 Ml Syringe) 40 mg SUBCUT Q24H [facility] Last Admin: 03/25/25 07:45 Dose: 40 mg Documented By: STEPHANE Fluoxetine HCl (Fluoxetine Hcl 20 Mg Capsule) 40 mg PO BEDTIME NATE On Hold: 02/22/25 14:23 Last Admin: 02/21/25 22:23 Dose: Not Given Documented By: PAPITO Non-Admin Reason: pt refused Glucagon (Glucagon Hcl 1 Mg Vial) 1 mg IM Q20M PRN PRN Reason: low BG Glucose (Glucose Gel 15 Gm Gel..Gram.) 15 gm PO Q15M PRN; Protocol PRN Reason: per Hypoglycemia Standing Ord. Hydralazine HCl (Hydralazine Hcl 20 Mg/Ml Vial) 5 mg IVPUSH Q6H PRN; Protocol PRN Reason: htn Last Admin: 02/23/25 17:30 Dose: 5 mg Documented By: JAYME Valproic Acid 500 mg/ Dextrose 55 mls @ 52.5 mls/hr IV Q12H [facility] Last Infusion: 03/25/25 08:55 Dose: Infused Documented By: STEPHANE Insulin Glargine (Insulin Glargine,Hum.Rec.Anlog 100 Unit/Ml 10 Ml Vial) 30 unit SUBCUT DAILY [facility] On Hold: 03/14/25 09:00 Insulin Human Lispro (Insulin Lispro 100 Unit/Ml 3 Ml Vial) 0 unit SUBCUT QIDACHS [facility]; Protocol Last Admin: 03/25/25 07:23 Dose: Not Given Documented By: STEPHANE Non-Admin Reason: No Insulin Coverage Magnesium Hydroxide (Milk Of Magnesia 30 Ml Oral.Susp) 30 ml PO DAILY PRN PRN Reason: Constipation Melatonin (Melatonin 3 Mg Tablet) 6 mg PO BEDTIME PRN PRN Reason: Insomnia Last Admin: 03/19/25 19:48 Dose: 6 mg Documented By: WES Metoprolol Tartrate (Metoprolol Tartrate 12.5 Mg Halftab) 12.5 mg PO BID [facility]; Protocol Last Admin: 03/25/25 07:45 Dose: 12.5 mg Documented By: STEPHANE Naloxone HCl (Naloxone Hcl 0.4 Mg/Ml Vial) 0.04 mg IVPUSH Q5M PRN PRN Reason: Excessive sedation or RR < 8 Nystatin (Nystatin Powder 15 Gm Bottle) 1 appl TOPICAL BID [facility]; Protocol Last Admin: 03/25/25 07:52 Dose: 1 appl Documented By: STEPHANE Omeprazole (Omeprazole/Na Bicarb Oral Susp 20 Mg/10 Ml Ud Cup) 20 mg G-TUBE DAILY@0630 [facility] Last Admin: 03/25/25 06:25 Dose: Not Given Documented By: OBED Non-Admin Reason: Patient Refused Perphenazine (Perphenazine 2 Mg Tablet) 2 mg PO BID [facility] Last Admin: 03/25/25 07:45 Dose: 2 mg Documented By: STEPHANE Perphenazine (Perphenazine 4 Mg Tablet) 4 mg PO BID [facility] Last Admin: 03/25/25 07:45 Dose: 4 mg Documented By: STEPHANE Senna (Sennosides 8.6 Mg Tablet) 8.6 mg PO DAILY [facility] Last Admin: 03/25/25 07:52 Dose: Not Given Documented By: STEPHANE Non-Admin Reason: Patient Refused Sodium Biphosphate/Sodium Phosphate (Sodium Phosphate,[place]-Dibasic 133 Ml Enema) 133 ml [place] DAILY PRN PRN Reason: Constipation Last Admin: 03/11/25 12:18 Dose: 133 ml Documented By: STEPHANE Sodium Chloride (0.9 % Sodium Chloride Flush 3 Ml Syringe) 3 ml IVFLUSH QSHIFT [facility] Last Admin: 03/25/25 07:51 Dose: Not Given Documented By: STEPHANE Non-Admin Reason: IV Running Trazodone HCl (Trazodone Hcl 50 Mg Tablet) 50 mg PO BEDTIME MRX1 PRN PRN Reason: Insomnia Last Admin: 03/20/25 21:26 Dose: 50 mg Documented By: RAMIRO Labs 03/04/25 06:46 03/06/25 06:31 Labs: Laboratory Results - last 24 hr 03/24/25 03/24/25 03/24/25 11:04 16:16 20:43 POC Glucose 131 H 245 H 210 H 03/25/25 07:10 POC Glucose 139 H Assessment and Plan (1) Fall: Status: Acute (2) Alzheimer's dementia: Status: Acute (3) Schizoaffective disorder: Status: Acute Plan 69-year-old male with a history of schizoaffective disorder (with psychotic features), major depressive disorder, diabetes, and GERD presented to the ED on 02/14/2025 after multiple falls. He was admitted for acute multifactorial encephalopathy, which was complicated by acute hypoxic respiratory failure secondary to aspiration pneumonia on 02/16/2025. Acute toxic/metabolic encephalopathyAcute hypoxic respiratory failure d/t Aspiration pneumonia Completed IV Unasyn; blood cultures negative. Weaned off supplemental oxygen, currently maintaining goal saturation of 95%. Aspiration precautions in place. Dysphagia: Evaluated by speech and swallow; recommended nectar-thickened liquids. Initially had poor oral intake and required TPN. Underwent G-tube placement on 03/02/2025. Tube feeds are being held while he is able to eat orally. Currently tolerating oral intake with NDD2 diet and nectar-thickened liquids. Psychiatric History: Schizoaffective disorder with psychotic features: Intermittent refusal of psychiatric medications and vital sign monitoring. Continue current regimen: fluoxetine, perphenazine (Trilafon), valproic acid (Depakote), clozapine (Clozaril), and valium. Psych follow-up as needed. Other Medical Issues: Diabetes, uncontrolled: continue Lantus 30 units; continue sliding scale insulin. Hypertension: No current management; blood pressure within normal limits. Summary: Patient is recovering from aspiration pneumonia and acute encephalopathy, now tolerating oral intake with dietary modifications. Psychiatric and medical management ongoing and need placement c [facility] - VTE: Enoxaparin - CODE STATUS: Full code - DIET: NDD2 and [place] thick - DISPOSITION: Pending placement Quality Stroke Does the patient have a stroke diagnosis?: No VTE Prior VTE?: No VTE Risk Level:: Medical - moderate - high VTE Device Contraindication: Treatment Not Indicated VTE Drug Contraindication: N/A - Med Ordered
[2025-03-25 09:59] LABS: Hematocrit 34.7 % (42.0-52.0); Hemoglobin 11.7 g/dl (14.0-18.0); Mean Corpuscular HGB Conc 33.7 g/dl (31.0-36.0); Mean Corpuscular Hemoglobin 30.4 pg (27.0-33.0); Mean Corpuscular Volume 90.1 fL (80.0-98.0); NRBC Abs Auto 0.000 X10*3/uL (0.0-0.012); NRBC Pct Auto 0.0 /100WBC (0.0-0.2); Platelet Count 141 X10*3/uL (160-400); Red Blood Count 3.85 X10*6/uL (4.60-5.80); White Blood Count 5.8 X10*3/uL (4.8-10.8)
[2025-03-25 10:10] LABS: Anion Gap 11 (12-20); Blood Urea Nitrogen 18 mg/dL (9-16); Calcium 8.7 mg/dL (8.4-10.2); Carbon Dioxide 29 mmol/L (22-29); Chloride 107 mmol/L (96-108); Creatinine Clr Calc Pharmacy 101.5; Estimated Glomerular Filt Rate > 60; Potassium 3.8 mmol/L (3.3-5.1); Sodium 143 mmol/L (135-145)
[2025-03-25 11:16] LABS: Glucose, Whole Blood 190 mg/dL (60-115)
--- NOTE | 2025-03-25 13:55 | MHC.SLORD ---
Speech Language Pathology Order Status: Pt sleeping, RN consulted, noted pt has been tired. Pt ate breakfast, no issues/concerns reported. Pt remains on NDD2 with NTL diet. ADMINISTRATIVE SERVICES OFFICER following.
[2025-03-25 15:37] VITALS: BP 100/60; PULSE 69; RESP 16; TEMP 36.3; O2SAT 96
--- NOTE | 2025-03-25 16:12 | MHC.CM.PN ---
Spoke with patients Guardian re [facility] for LTC. She stated that she provided [facility] with all information requested. A referral was sent to [employer] to verify insurance. CM will continue to follow for placement
[2025-03-25 16:30] LABS: Glucose, Whole Blood 298 mg/dL (60-115)
[2025-03-25] MEDS: 0.9 % Sodium Chloride Flush 3 ML SYRINGE IVFLUSH (16:49)
[2025-03-25 19:53] VITALS: BP 121/64; PULSE 72; RESP 16; TEMP 36.3; O2SAT 97
[2025-03-25 20:13] LABS: Glucose, Whole Blood 192 mg/dL (60-115)
[2025-03-26 04:00] VITALS: BP 130/60; PULSE 76; RESP 16; TEMP 36.1; O2SAT 95
[2025-03-26] MEDS: Omeprazole/Na Bicarb Oral Susp 20 MG/10 ML UD Cup G-TUBE (05:49)
[2025-03-26 07:25] VITALS: BP 121/63; PULSE 64; RESP 14; TEMP 36; O2SAT 96
[2025-03-26 08:10] LABS: Glucose, Whole Blood 183 mg/dL (60-115)
[2025-03-26] MEDS: Metoprolol Tartrate 12.5 MG HALFTAB PO ×2 (08:58→20:18)
[2025-03-26 09:01] LABS: Glucose, Whole Blood 199 mg/dL (60-115)
[2025-03-26] MEDS: Valproic Acid (as Sodium Salt) 500 MG in Dextrose 5 % 50 ML 52.51 MG IV ×2 (09:01→21:16)
[2025-03-26] MEDS: 0.9 % Sodium Chloride Flush 3 ML SYRINGE IVFLUSH ×4 (09:01→20:18)
--- NOTE | 2025-03-26 09:27 | HO.PM.IMPN ---
Subjective Subjective Date of Service: 03/26/25 Interval History: No new issues Review of Systems Review of Systems: Yes Unobtainable due to mental status Physical Exam Exam: Exam: General: Alert but confused at baseline, no acute distress Resp: CTA bilateral CVS: S1,S2,RRR GI: +BS, NT, no distention Skin: No rash Neuro: motor grossly intact Psych: appropriate affect Vital Signs: Vital Signs: Last Vital Signs Temp 96.8 F 03/26/25 07:25 Pulse 64 03/26/25 07:25 Resp 14 03/26/25 07:25 BP 121/63 03/26/25 07:25 Pulse Ox 96 03/26/25 07:25 O2 Del Method Room Air 03/26/25 07:25 O2 Flow Rate 3 03/07/25 23:35 BMI result Body Mass Index 23.3 Objective Data Active Medications Acetaminophen (Acetaminophen 325 Mg Tablet) 650 mg PO Q6H PRN PRN Reason: Headache/Pain, Scale 1-10 Al Hydroxide/Mg Hydroxide (Magnesium Hydrox/Alum Hydrox 30 Ml Oral.Susp) 30 ml PO Q6H PRN PRN Reason: Heartburn/Nausea Last Admin: 03/20/25 15:11 Dose: 30 ml Documented By: KERRI Calcium Carbonate (Calcium Carbonate 750 Mg Tab.Chew) 750 mg PO Q4H PRN PRN Reason: Heartburn Clozapine (Clozapine 25 Mg Tablet) 50 mg PO TID [facility] Last Admin: 03/26/25 08:59 Dose: 50 mg Documented By: TERESA Dextrose (Dextrose 50 % 25 Gm/50 Ml Syringe) 25 gm IVPUSH Q15M PRN; Protocol PRN Reason: per Hypoglycemia Standing Ord. Docusate Sodium (Docusate Sodium 100 Mg/10 Ml Liquid) 100 mg G-TUBE BID [facility] Last Admin: 03/26/25 09:01 Dose: 100 mg Documented By: TERESA Enoxaparin Sodium (Enoxaparin Sodium 40 Mg/0.4 Ml Syringe) 40 mg SUBCUT Q24H [facility] Last Admin: 03/26/25 08:57 Dose: 40 mg Documented By: TERESA Fluoxetine HCl (Fluoxetine Hcl 20 Mg Capsule) 40 mg PO BEDTIME [facility] On Hold: 02/22/25 14:23 Last Admin: 02/21/25 22:23 Dose: Not Given Documented By: PAPITO Non-Admin Reason: pt refused Glucagon (Glucagon Hcl 1 Mg Vial) 1 mg IM Q20M PRN PRN Reason: low BG Glucose (Glucose Gel 15 Gm Gel..Gram.) 15 gm PO Q15M PRN; Protocol PRN Reason: per Hypoglycemia Standing Ord. Hydralazine HCl (Hydralazine Hcl 20 Mg/Ml Vial) 5 mg IVPUSH Q6H PRN; Protocol PRN Reason: htn Last Admin: 02/23/25 17:30 Dose: 5 mg Documented By: JAYME Valproic Acid 500 mg/ Dextrose 55 mls @ 52.506 mls/hr IV Q12H [facility] Last Admin: 03/26/25 09:01 Dose: 52.51 mls/hr Documented By: TERESA Insulin Glargine (Insulin Glargine,Hum.Rec.Anlog 100 Unit/Ml 10 Ml Vial) 30 unit SUBCUT DAILY [facility] On Hold: 03/14/25 09:00 Insulin Human Lispro (Insulin Lispro 100 Unit/Ml 3 Ml Vial) 0 unit SUBCUT QIDACHS [facility]; Protocol Last Admin: 03/26/25 08:57 Dose: 2 unit Documented By: TERESA Magnesium Hydroxide (Milk Of Magnesia 30 Ml Oral.Susp) 30 ml PO DAILY PRN PRN Reason: Constipation Melatonin (Melatonin 3 Mg Tablet) 6 mg PO BEDTIME PRN PRN Reason: Insomnia Last Admin: 03/25/25 20:07 Dose: 6 mg Documented By: CAR[place] Metoprolol Tartrate (Metoprolol Tartrate 12.5 Mg Halftab) 12.5 mg PO BID [facility]; Protocol Last Admin: 03/26/25 08:58 Dose: 12.5 mg Documented By: TERESA Naloxone HCl (Naloxone Hcl 0.4 Mg/Ml Vial) 0.04 mg IVPUSH Q5M PRN PRN Reason: Excessive sedation or RR < 8 Nystatin (Nystatin Powder 15 Gm Bottle) 1 appl TOPICAL BID [facility]; Protocol Last Admin: 03/26/25 09:13 Dose: 1 appl Documented By: TERESA Omeprazole (Omeprazole/Na Bicarb Oral Susp 20 Mg/10 Ml Ud Cup) 20 mg G-TUBE DAILY@0630 [facility] Last Admin: 03/26/25 05:49 Dose: 20 mg Documented By: [place] Perphenazine (Perphenazine 2 Mg Tablet) 2 mg PO BID [facility] Last Admin: 03/26/25 08:58 Dose: 2 mg Documented By: TERESA Perphenazine (Perphenazine 4 Mg Tablet) 4 mg PO BID [facility] Last Admin: 03/26/25 08:58 Dose: 4 mg Documented By: TERESA Senna (Sennosides 8.6 Mg Tablet) 8.6 mg PO DAILY [facility] Last Admin: 03/26/25 08:58 Dose: 8.6 mg Documented By: TERESA Sodium Biphosphate/Sodium Phosphate (Sodium Phosphate,[place]-Dibasic 133 Ml Enema) 133 ml [place] DAILY PRN PRN Reason: Constipation Last Admin: 03/11/25 12:18 Dose: 133 ml Documented By: STEPHANE Sodium Chloride (0.9 % Sodium Chloride Flush 3 Ml Syringe) 3 ml IVFLUSH QSHIFT [facility] Last Admin: 03/26/25 09:01 Dose: 3 ml Documented By: TERESA Trazodone HCl (Trazodone Hcl 50 Mg Tablet) 50 mg PO BEDTIME MRX1 PRN PRN Reason: Insomnia Last Admin: 03/20/25 21:26 Dose: 50 mg Documented By: RAMIRO Labs 03/25/25 09:38 03/25/25 09:38 Labs: Laboratory Results - last 24 hr 03/25/25 03/25/25 03/25/25 09:38 11:12 16:25 MCV 90.1 MCH 30.4 MCHC 33.7 RDW 13.8 Plt Count 141 L MPV 9.7 Absolute Nucleated RBC 0.000 Nucleated RBC % (auto) 0.0 Anion Gap 11 L Estim Creat Clear Calc 101.5 Estimated GFR > 60 POC Glucose 190 H 298 H Random Glucose 183 H Calcium 8.7 03/25/25 03/26/25 03/26/25 20:09 08:06 08:56 MCV MCH MCHC RDW Plt Count MPV Absolute Nucleated RBC Nucleated RBC % (auto) Anion Gap Estim Creat Clear Calc Estimated GFR POC Glucose 192 H 183 H 199 H Random Glucose Calcium Assessment and Plan (1) Fall: Status: Acute (2) Alzheimer's dementia: Status: Acute (3) Schizoaffective disorder: Status: Acute Plan 69-year-old male with a history of schizoaffective disorder (with psychotic features), major depressive disorder, diabetes, and GERD presented to the ED on 02/14/2025 after multiple falls. He was admitted for acute multifactorial encephalopathy, which was complicated by acute hypoxic respiratory failure secondary to aspiration pneumonia on 02/16/2025. Acute toxic/metabolic encephalopathyAcute hypoxic respiratory failure d/t Aspiration pneumonia Completed IV Unasyn; blood cultures negative. Weaned off supplemental oxygen, currently maintaining goal saturation of 95%. Aspiration precautions in place. Dysphagia: Evaluated by speech and swallow; recommended nectar-thickened liquids. Initially had poor oral intake and required TPN. Underwent G-tube placement on 03/02/2025. Tube feeds are being held while he is able to eat orally. Currently tolerating oral intake with NDD2 diet and nectar-thickened liquids. Psychiatric History: Schizoaffective disorder with psychotic features: Intermittent refusal of psychiatric medications and vital sign monitoring. Continue current regimen: fluoxetine, perphenazine (Trilafon), valproic acid (Depakote), clozapine (Clozaril), and valium. Psych follow-up as needed. Other Medical Issues: Diabetes, uncontrolled: continue Lantus 30 units; continue sliding scale insulin. Hypertension: No current management; blood pressure within normal limits. Summary: Patient is recovering from aspiration pneumonia and acute encephalopathy, now tolerating oral intake with dietary modifications. Psychiatric and medical management ongoing and need placement Routine labs 03/25/25 cbc, bmp unremarkable [facility] - VTE: Enoxaparin - CODE STATUS: Full code - DIET: NDD2 and [place] thick - DISPOSITION: Pending placement Quality Stroke Does the patient have a stroke diagnosis?: No VTE Prior VTE?: No VTE Risk Level:: Medical - moderate - high VTE Device Contraindication: Treatment Not Indicated VTE Drug Contraindication: N/A - Med Ordered
[2025-03-26 11:09] LABS: Glucose, Whole Blood 249 mg/dL (60-115)
[2025-03-26 15:02] VITALS: BP 148/72; PULSE 73; RESP 18; TEMP 36.4; O2SAT 98
--- NOTE | 2025-03-26 16:01 | PC.NURSE ---
Patient is a pleasant 69 year old man. History if dementia although is alert and oriented x4 with intermittent confusion. Answers questions appropriately and able to make needs known. Patient is tolerating diet well and eating 100% of most meals on his own. Ground mechanical and nectar thick diet. Using the urinal appropriately.
[2025-03-26 16:10] LABS: Glucose, Whole Blood 231 mg/dL (60-115)
--- NOTE | 2025-03-26 17:15 | MHC.SL.SWA ---
Speech Pathologist Impression: Risk of Aspiration Due to: Dysphasia Diet Status: Continue on current diet GROUND solids (NDD2) with NECTAR THICK juice, no straw/cup sip only, pills crushed in puree. Liquid Consistency and Strategies for Safe Swallow: Liquid Intake Recommendation: [place] Thick Liquid Intake Strategies: Small Sips No Straws Solid Food Consistency: Dietary Recommendations: Grnd/Mech Altered (NDD2) Additional Modifications to Solid Foods: Prepare the tray to ensure all items are opened, apply condiments, and ensure everything is accessible to the patient. Oral Medication Intake: Crushed with Puree Please contact the pharmacy regarding appropriate crushable or liquid drug formulations that are available whenever modified delivery is recommended. Compensatory Strategies and Precautions to be Taken for Safe Swallow: Sitting Upright (90 deg) No Straw Liquids from Cup Small Bites and Sips Alternate Liquids/Solids Supervision While Eating and Drinking for Safe Swallow: Direct Supervision (1:1) Foods to Avoid: Tough, difficult to chew solids. Swallowing Recommended Treatments: Compens. Strategy Educat. Recommendation for Speech: Inpatient Speech Therapy Comment: Patient was seen for possible upgrade of diet this p.m. secondary to prolonged period on current diet (ground/mechanical) and repetitive nature of this diet (per patient It's the same #&^%@? every day! ). Patient has been eating well and tolerating diet, but expressing dissatisfaction ( It's the only thing wrong with this place, everything else is great! ). INTEGRATION DIRECTOR attempted to provide patient with bites of a soft sandwich to evaluate for upgrade, patient specified turkey with nothing else on it which was cut into small pieces and one larger crust-less piece. Patient took larger piece, though instructed to take smaller ones first, struggled to bite of piece with gums (edentulous), but managed to tear off small amount. Patient then chewed with gums for prolonged period and produced swallow. INTEGRATION DIRECTOR had brought cup of water as well for possible upgrade of liquids, patient initially refused ( I think you poisoned it! ), INTEGRATION DIRECTOR took sip of water by spoon to demonstrate safety, meanwhile patient took larger bite of sandwich, began to chew and reached for cup to drink with food in mouth. INTEGRATION DIRECTOR declined giving patient cup, patient then continued to chew and swallow sandwich, then refused further trials of any liquid. Unfortunately, due to impulsive, unsafe behaviors noted, and refusal of liquids, upgrade is not recommended at this time. Recommend continue on Ground Mechanical (NDD2) with [place] Thick juice, no straw/cup sip only, pills crushed in puree. Frequency/Duration: Date Range for Service Req: Timeline to reassess: Table Games Dealer Clinican/Clinical Fellow: No Supervisory Statement: I have reviewed and agree with the student/clinical fellow's documentation: N/A Speech Language Pathologist: Tami Schultz M.A., CCC-INTEGRATION DIRECTOR
[2025-03-26 19:50] VITALS: BP 140/63; PULSE 74; RESP 16; TEMP 36.1; O2SAT 96
[2025-03-26 20:19] LABS: Glucose, Whole Blood 226 mg/dL (60-115)
[2025-03-27 02:57] VITALS: BP 137/63; PULSE 60; RESP 18; TEMP 35.9; O2SAT 97
[2025-03-27] MEDS: Omeprazole/Na Bicarb Oral Susp 20 MG/10 ML UD Cup G-TUBE (06:14)
[2025-03-27 07:12] LABS: Neut%MD 46.0 %; WBCANC 5.7 X10*3/uL
[2025-03-27 07:15] LABS: Glucose, Whole Blood 138 mg/dL (60-115)
[2025-03-27 07:41] VITALS: BP 124/65; PULSE 60; RESP 14; TEMP 36.9; O2SAT 96
[2025-03-27] MEDS: Metoprolol Tartrate 12.5 MG HALFTAB PO ×2 (08:10→20:09)
[2025-03-27] MEDS: 0.9 % Sodium Chloride Flush 3 ML SYRINGE IVFLUSH ×3 (08:11→20:10)
[2025-03-27] MEDS: Valproic Acid (as Sodium Salt) 500 MG in Dextrose 5 % 50 ML 52.5 MG IV ×2 (08:11→20:10)
[2025-03-27 11:34] LABS: Glucose, Whole Blood 268 mg/dL (60-115)
--- NOTE | 2025-03-27 11:44 | HO.PM.IMPN ---
Subjective Subjective Date of Service: 03/27/25 Interval History: stable wihtout new issues Review of Systems Review of Systems: Yes Unobtainable due to mental status Physical Exam Exam: Exam: General: Alert but confused at baseline, no acute distress Resp: CTA bilateral CVS: S1,S2,RRR GI: +BS, NT, no distention Skin: No rash Neuro: motor grossly intact Psych: appropriate affect Vital Signs: Vital Signs: Last Vital Signs Temp 98.4 F 03/27/25 07:41 Pulse 60 03/27/25 07:41 Resp 14 03/27/25 07:41 BP 124/65 03/27/25 07:41 Pulse Ox 96 03/27/25 07:41 O2 Del Method Room Air 03/27/25 07:41 O2 Flow Rate 3 03/07/25 23:35 BMI result Body Mass Index 23.3 Objective Data Active Medications Acetaminophen (Acetaminophen 325 Mg Tablet) 650 mg PO Q6H PRN PRN Reason: Headache/Pain, Scale 1-10 Al Hydroxide/Mg Hydroxide (Magnesium Hydrox/Alum Hydrox 30 Ml Oral.Susp) 30 ml PO Q6H PRN PRN Reason: Heartburn/Nausea Last Admin: 03/20/25 15:11 Dose: 30 ml Documented By: KERRI Calcium Carbonate (Calcium Carbonate 750 Mg Tab.Chew) 750 mg PO Q4H PRN PRN Reason: Heartburn Clozapine (Clozapine 25 Mg Tablet) 50 mg PO TID [facility] Last Admin: 03/27/25 08:10 Dose: 50 mg Documented By: TERESA Dextrose (Dextrose 50 % 25 Gm/50 Ml Syringe) 25 gm IVPUSH Q15M PRN; Protocol PRN Reason: per Hypoglycemia Standing Ord. Docusate Sodium (Docusate Sodium 100 Mg/10 Ml Liquid) 100 mg G-TUBE BID [facility] Last Admin: 03/27/25 08:16 Dose: Not Given Documented By: TERESA Non-Admin Reason: Patient Refused Enoxaparin Sodium (Enoxaparin Sodium 40 Mg/0.4 Ml Syringe) 40 mg SUBCUT Q24H [facility] Last Admin: 03/27/25 08:10 Dose: 40 mg Documented By: TERESA Fluoxetine HCl (Fluoxetine Hcl 20 Mg Capsule) 40 mg PO BEDTIME NATE On Hold: 02/22/25 14:23 Last Admin: 02/21/25 22:23 Dose: Not Given Documented By: PAPITO Non-Admin Reason: pt refused Glucagon (Glucagon Hcl 1 Mg Vial) 1 mg IM Q20M PRN PRN Reason: low BG Glucose (Glucose Gel 15 Gm Gel..Gram.) 15 gm PO Q15M PRN; Protocol PRN Reason: per Hypoglycemia Standing Ord. Hydralazine HCl (Hydralazine Hcl 20 Mg/Ml Vial) 5 mg IVPUSH Q6H PRN; Protocol PRN Reason: htn Last Admin: 02/23/25 17:30 Dose: 5 mg Documented By: JAYME Valproic Acid 500 mg/ Dextrose 55 mls @ 52.506 mls/hr IV Q12H [facility] Last Infusion: 03/27/25 09:35 Dose: Infused Documented By: TERESA Insulin Glargine (Insulin Glargine,Hum.Rec.Anlog 100 Unit/Ml 10 Ml Vial) 30 unit SUBCUT DAILY [facility] On Hold: 03/14/25 09:00 Insulin Human Lispro (Insulin Lispro 100 Unit/Ml 3 Ml Vial) 0 unit SUBCUT QIDACHS [facility]; Protocol Last Admin: 03/27/25 11:32 Dose: 6 unit Documented By: TERESA Magnesium Hydroxide (Milk Of Magnesia 30 Ml Oral.Susp) 30 ml PO DAILY PRN PRN Reason: Constipation Melatonin (Melatonin 3 Mg Tablet) 6 mg PO BEDTIME PRN PRN Reason: Insomnia Last Admin: 03/25/25 20:07 Dose: 6 mg Documented By: CAROLINA Metoprolol Tartrate (Metoprolol Tartrate 12.5 Mg Halftab) 12.5 mg PO BID [facility]; Protocol Last Admin: 03/27/25 08:10 Dose: 12.5 mg Documented By: TERESA Naloxone HCl (Naloxone Hcl 0.4 Mg/Ml Vial) 0.04 mg IVPUSH Q5M PRN PRN Reason: Excessive sedation or RR < 8 Nystatin (Nystatin Powder 15 Gm Bottle) 1 appl TOPICAL BID [facility]; Protocol Last Admin: 03/27/25 08:12 Dose: 1 appl Documented By: TERESA Omeprazole (Omeprazole/Na Bicarb Oral Susp 20 Mg/10 Ml Ud Cup) 20 mg G-TUBE DAILY@0630 [facility] Last Admin: 03/27/25 06:14 Dose: 20 mg Documented By: ZAYRA Perphenazine (Perphenazine 2 Mg Tablet) 2 mg PO BID [facility] Last Admin: 03/27/25 08:10 Dose: 2 mg Documented By: TERESA Perphenazine (Perphenazine 4 Mg Tablet) 4 mg PO BID [facility] Last Admin: 03/27/25 08:10 Dose: 4 mg Documented By: TERESA Senna (Sennosides 8.6 Mg Tablet) 8.6 mg PO DAILY [facility] Last Admin: 03/27/25 08:10 Dose: 8.6 mg Documented By: TERESA Sodium Biphosphate/Sodium Phosphate (Sodium Phosphate,[place]-Dibasic 133 Ml Enema) 133 ml [place] DAILY PRN PRN Reason: Constipation Last Admin: 03/11/25 12:18 Dose: 133 ml Documented By: STEPHANE Sodium Chloride (0.9 % Sodium Chloride Flush 3 Ml Syringe) 3 ml IVFLUSH QSHIFT [facility] Last Admin: 03/27/25 08:11 Dose: 3 ml Documented By: TERESA Trazodone HCl (Trazodone Hcl 50 Mg Tablet) 50 mg PO BEDTIME MRX1 PRN PRN Reason: Insomnia Last Admin: 03/20/25 21:26 Dose: 50 mg Documented By: RAMIRO Labs 03/25/25 09:38 03/25/25 09:38 Labs: Laboratory Results - last 24 hr 03/26/25 03/26/25 03/27/25 16:06 20:12 06:01 Absolute Neuts (auto) 2.6 POC Glucose 231 H 226 H 03/27/25 03/27/25 07:10 11:30 Absolute Neuts (auto) POC Glucose 138 H 268 H Assessment and Plan (1) Fall: Status: Acute (2) Alzheimer's dementia: Status: Acute (3) Schizoaffective disorder: Status: Acute Plan 69-year-old male with a history of schizoaffective disorder (with psychotic features), major depressive disorder, diabetes, and GERD presented to the ED on 02/14/2025 after multiple falls. He was admitted for acute multifactorial encephalopathy, which was complicated by acute hypoxic respiratory failure secondary to aspiration pneumonia on 02/16/2025. essentially no change Acute toxic/metabolic encephalopathyAcute hypoxic respiratory failure d/t Aspiration pneumonia Completed IV Unasyn; blood cultures negative. Weaned off supplemental oxygen, currently maintaining goal saturation of 95%. Aspiration precautions in place. Dysphagia: Evaluated by speech and swallow; recommended nectar-thickened liquids. Initially had poor oral intake and required TPN. Underwent G-tube placement on 03/02/2025. Tube feeds are being held while he is able to eat orally. Currently tolerating oral intake with NDD2 diet and nectar-thickened liquids. Psychiatric History: Schizoaffective disorder with psychotic features: Intermittent refusal of psychiatric medications and vital sign monitoring. Continue current regimen: fluoxetine, perphenazine (Trilafon), valproic acid (Depakote), clozapine (Clozaril), and valium. Psych follow-up as needed. Other Medical Issues: Diabetes, uncontrolled: continue Lantus 30 units; continue sliding scale insulin. Hypertension: No current management; blood pressure within normal limits. Summary: Patient is recovering from aspiration pneumonia and acute encephalopathy, now tolerating oral intake with dietary modifications. Psychiatric and medical management ongoing and need placement Routine labs 03/25/25 cbc, bmp unremarkable QUALITY [facility] - VTE: Enoxaparin - CODE STATUS: Full code - DIET: NDD2 and [place] thick - DISPOSITION: Pending placement Quality Stroke Does the patient have a stroke diagnosis?: No VTE Prior VTE?: No VTE Risk Level:: Medical - moderate - high VTE Device Contraindication: Treatment Not Indicated VTE Drug Contraindication: N/A - Med Ordered
[2025-03-27 16:00] VITALS: BP 119/57; PULSE 58; RESP 12; TEMP 36.2; O2SAT 95
[2025-03-27 16:51] LABS: Glucose, Whole Blood 174 mg/dL (60-115)
--- NOTE | 2025-03-27 17:22 | MHC.SL.SWA ---
Speech Pathologist Impression: Risk of Aspiration, Oropharyngeal Dysphagia Dysphasia Diet Status: Continue on current diet GROUND solids (NDD2) with NECTAR THICK juice, no straw/cup sip only, pills crushed in puree. Liquid Consistency and Strategies for Safe Swallow: Liquid Intake Recommendation: [place] Thick Liquid Intake Strategies: Small Sips No Straws Solid Food Consistency: Dietary Recommendations: Grnd/Mech Altered (NDD2) Additional Modifications to Solid Foods: Prepare the tray to ensure all items are opened, apply condiments, and ensure everything is accessible to the patient. Oral Medication Intake: Crushed with Puree Please contact the pharmacy regarding appropriate crushable or liquid drug formulations that are available whenever modified delivery is recommended. Compensatory Strategies and Precautions to be Taken for Safe Swallow: Sitting Upright (90 deg) No Straw Liquids from Cup Small Bites and Sips Alternate Liquids/Solids Supervision While Eating and Drinking for Safe Swallow: Direct Supervision (1:1) Foods to Avoid: Tough, difficult to chew solids. Swallowing Recommended Treatments: Compens. Strategy Educat. Recommendation for Speech: Inpatient Speech Therapy Auto Hauler Clinican/Clinical Fellow: No Supervisory Statement: I have reviewed and agree with the student/clinical fellow's documentation: N/A Speech Language Pathologist: Tami Schultz M.A., CCC-CONCERT OR LECTURE HALL MANAGER
--- NOTE | 2025-03-27 17:43 | PC.NURSE ---
Pt had a blood glucose of 174 but refused his dinner, 2 units of insulin held.
[2025-03-27 19:30] VITALS: BP 119/59; PULSE 62; RESP 17; TEMP 36.2; O2SAT 99
[2025-03-27 21:51] LABS: Glucose, Whole Blood 189 mg/dL (60-115)
[2025-03-28 03:07] VITALS: BP 146/66; PULSE 76; RESP 16; TEMP 36.6; O2SAT 96
[2025-03-28] MEDS: Omeprazole/Na Bicarb Oral Susp 20 MG/10 ML UD Cup G-TUBE (05:57)
[2025-03-28 07:28] LABS: Glucose, Whole Blood 217 mg/dL (60-115)
[2025-03-28 08:00] VITALS: BP 123/68; PULSE 63; RESP 18; TEMP 36.4; O2SAT 98
[2025-03-28] MEDS: Metoprolol Tartrate 12.5 MG HALFTAB PO ×2 (08:26→20:40)
[2025-03-28] MEDS: 0.9 % Sodium Chloride Flush 3 ML SYRINGE IVFLUSH ×3 (08:28→19:46)
[2025-03-28] MEDS: Valproic Acid (as Sodium Salt) 500 MG in Dextrose 5 % 50 ML 52 MG IV (08:41)
--- NOTE | 2025-03-28 09:35 | P.PNIM_ITS ---
Subjective Subjective Date of Service: 03/28/25 Interval History: stable without new issues Physical Exam 2 Exam: Exam: General: Alert but confused at baseline, no acute distress Resp: CTA bilateral CVS: S1,S2,RRR GI: +BS, NT, no distention Skin: No rash Neuro: motor grossly intact Psych: appropriate affect Vital Signs: Vital Signs: Last Vital Signs Temp 97.5 F 03/28/25 08:00 Pulse 63 03/28/25 08:00 Resp 18 03/28/25 08:00 BP 123/68 03/28/25 08:00 Pulse Ox 98 03/28/25 08:00 O2 Del Method Room Air 03/28/25 08:00 O2 Flow Rate 3 03/07/25 23:35 BMI result Body Mass Index 23.3 Objective Data Active Medications Acetaminophen (Acetaminophen 325 Mg Tablet) 650 mg PO Q6H PRN PRN Reason: Headache/Pain, Scale 1-10 Al Hydroxide/Mg Hydroxide (Magnesium Hydrox/Alum Hydrox 30 Ml Oral.Susp) 30 ml PO Q6H PRN PRN Reason: Heartburn/Nausea Last Admin: 03/20/25 15:11 Dose: 30 ml Documented By: KERRI Calcium Carbonate (Calcium Carbonate 750 Mg Tab.Chew) 750 mg PO Q4H PRN PRN Reason: Heartburn Clozapine (Clozapine 25 Mg Tablet) 50 mg PO TID [facility] Last Admin: 03/28/25 08:26 Dose: 50 mg Documented By: KERRI Dextrose (Dextrose 50 % 25 Gm/50 Ml Syringe) 25 gm IVPUSH Q15M PRN; Protocol PRN Reason: per Hypoglycemia Standing Ord. Docusate Sodium (Docusate Sodium 100 Mg/10 Ml Liquid) 100 mg G-TUBE BID [facility] Last Admin: 03/28/25 08:37 Dose: Not Given Documented By: KERRI Non-Admin Reason: Patient Refused Enoxaparin Sodium (Enoxaparin Sodium 40 Mg/0.4 Ml Syringe) 40 mg SUBCUT Q24H [facility] Last Admin: 03/28/25 08:40 Dose: 40 mg Documented By: KERRI Fluoxetine HCl (Fluoxetine Hcl 20 Mg Capsule) 40 mg PO BEDTIME [facility] On Hold: 02/22/25 14:23 Last Admin: 02/21/25 22:23 Dose: Not Given Documented By: PAPITO Non-Admin Reason: pt refused Glucagon (Glucagon Hcl 1 Mg Vial) 1 mg IM Q20M PRN PRN Reason: low BG Glucose (Glucose Gel 15 Gm Gel..Gram.) 15 gm PO Q15M PRN; Protocol PRN Reason: per Hypoglycemia Standing Ord. Hydralazine HCl (Hydralazine Hcl 20 Mg/Ml Vial) 5 mg IVPUSH Q6H PRN; Protocol PRN Reason: htn Last Admin: 02/23/25 17:30 Dose: 5 mg Documented By: JAYME Valproic Acid 500 mg/ Dextrose 55 mls @ 52.506 mls/hr IV Q12H [facility] Last Admin: 03/28/25 08:41 Dose: 52 mls/hr Documented By: KERRI Insulin Glargine (Insulin Glargine,Hum.Rec.Anlog 100 Unit/Ml 10 Ml Vial) 30 unit SUBCUT DAILY [facility] On Hold: 03/14/25 09:00 Insulin Human Lispro (Insulin Lispro 100 Unit/Ml 3 Ml Vial) 0 unit SUBCUT QIDACHS [facility]; Protocol Last Admin: 03/28/25 08:36 Dose: 4 unit Documented By: KERRI Magnesium Hydroxide (Milk Of Magnesia 30 Ml Oral.Susp) 30 ml PO DAILY PRN PRN Reason: Constipation Melatonin (Melatonin 3 Mg Tablet) 6 mg PO BEDTIME PRN PRN Reason: Insomnia Last Admin: 03/27/25 20:09 Dose: 6 mg Documented By: WES Metoprolol Tartrate (Metoprolol Tartrate 12.5 Mg Halftab) 12.5 mg PO BID [facility]; Protocol Last Admin: 03/28/25 08:26 Dose: 12.5 mg Documented By: KERRI Naloxone HCl (Naloxone Hcl 0.4 Mg/Ml Vial) 0.04 mg IVPUSH Q5M PRN PRN Reason: Excessive sedation or RR < 8 Nystatin (Nystatin Powder 15 Gm Bottle) 1 appl TOPICAL BID [facility]; Protocol Last Admin: 03/28/25 08:38 Dose: 1 appl Documented By: KERRI Omeprazole (Omeprazole/Na Bicarb Oral Susp 20 Mg/10 Ml Ud Cup) 20 mg G-TUBE DAILY@0630 [facility] Last Admin: 03/28/25 05:57 Dose: 20 mg Documented By: WES Perphenazine (Perphenazine 2 Mg Tablet) 2 mg PO BID [facility] Last Admin: 03/28/25 08:26 Dose: 2 mg Documented By: KERRI Perphenazine (Perphenazine 4 Mg Tablet) 4 mg PO BID [facility] Last Admin: 03/28/25 08:26 Dose: 4 mg Documented By: KERRI Senna (Sennosides 8.6 Mg Tablet) 8.6 mg PO DAILY [facility] Last Admin: 03/28/25 08:26 Dose: 8.6 mg Documented By: KERRI Sodium Biphosphate/Sodium Phosphate (Sodium Phosphate,[place]-Dibasic 133 Ml Enema) 133 ml [place] DAILY PRN PRN Reason: Constipation Last Admin: 03/11/25 12:18 Dose: 133 ml Documented By: STEPHANE Sodium Chloride (0.9 % Sodium Chloride Flush 3 Ml Syringe) 3 ml IVFLUSH QSHIFT [facility] Last Admin: 03/28/25 08:28 Dose: 3 ml Documented By: KERRI Trazodone HCl (Trazodone Hcl 50 Mg Tablet) 50 mg PO BEDTIME MRX1 PRN PRN Reason: Insomnia Last Admin: 03/20/25 21:26 Dose: 50 mg Documented By: RAMIRO Labs 03/25/25 09:38 03/25/25 09:38 Labs: Laboratory Results - last 24 hr 03/27/25 03/27/25 03/27/25 11:30 16:48 21:46 POC Glucose 268 H 174 H 189 H 03/28/25 07:24 POC Glucose 217 H Assessment and Plan (1) Fall: Status: Acute (2) Alzheimer's dementia: Status: Acute (3) Schizoaffective disorder: Status: Acute Plan 69-year-old male with a history of schizoaffective disorder (with psychotic features), major depressive disorder, diabetes, and GERD presented to the ED on 02/14/2025 after multiple falls. He was admitted for acute multifactorial encephalopathy, which was complicated by acute hypoxic respiratory failure secondary to aspiration pneumonia on 02/16/2025. essentially no change Acute toxic/metabolic encephalopathyAcute hypoxic respiratory failure d/t Aspiration pneumonia Completed IV Unasyn; blood cultures negative. Weaned off supplemental oxygen, currently maintaining goal saturation of 95%. Aspiration precautions in place. Dysphagia: Evaluated by speech and swallow; recommended nectar-thickened liquids. Initially had poor oral intake and required TPN. Underwent G-tube placement on 03/02/2025. Tube feeds are being held while he is able to eat orally. Currently tolerating oral intake with NDD2 diet and nectar-thickened liquids. Psychiatric History: Schizoaffective disorder with psychotic features: Intermittent refusal of psychiatric medications and vital sign monitoring. Continue current regimen: fluoxetine, perphenazine (Trilafon), valproic acid (Depakote), clozapine (Clozaril), and valium. Psych follow-up as needed. Other Medical Issues: Diabetes, uncontrolled: continue Lantus 30 units; continue sliding scale insulin. Hypertension: No current management; blood pressure within normal limits. Summary: Patient is recovering from aspiration pneumonia and acute encephalopathy, now tolerating oral intake with dietary modifications. Psychiatric and medical management ongoing and need placement Routine labs 03/25/25 cbc, bmp unremarkable [facility] - VTE: Enoxaparin - CODE STATUS: Full code - DIET: NDD2 and [place] thick - DISPOSITION: Pending placement Quality Stroke Does the patient have a stroke diagnosis?: No VTE Prior VTE?: No VTE Risk Level:: Medical - moderate - high VTE Device Contraindication: Treatment Not Indicated VTE Drug Contraindication: N/A - Med Ordered
[2025-03-28 11:39] LABS: Glucose, Whole Blood 161 mg/dL (60-115)
[2025-03-28 16:00] VITALS: BP 146/64; PULSE 63; RESP 18; TEMP 36; O2SAT 97
[2025-03-28 16:39] LABS: Glucose, Whole Blood 172 mg/dL (60-115)
[2025-03-28 19:36] LABS: Glucose, Whole Blood 224 mg/dL (60-115)
[2025-03-28 19:47] VITALS: BP 125/58; PULSE 71; RESP 18; TEMP 36.3; O2SAT 98
[2025-03-28] MEDS: Valproic Acid (as Sodium Salt) 500 MG in Dextrose 5 % 50 ML 52.5 MG IV (20:40)
[2025-03-29 04:00] VITALS: BP 140/60; PULSE 62; RESP 18; TEMP 36.1; O2SAT 98
[2025-03-29 07:19] VITALS: BP 112/63; PULSE 57; RESP 18; TEMP 36.6; O2SAT 97
[2025-03-29 07:29] LABS: Glucose, Whole Blood 141 mg/dL (60-115)
[2025-03-29] MEDS: Metoprolol Tartrate 12.5 MG HALFTAB PO ×2 (08:24→20:28)
[2025-03-29] MEDS: 0.9 % Sodium Chloride Flush 3 ML SYRINGE IVFLUSH ×3 (08:26→21:40)
[2025-03-29] MEDS: Valproic Acid (as Sodium Salt) 500 MG in Dextrose 5 % 50 ML 52.5 MG IV ×2 (08:32→20:32)
--- NOTE | 2025-03-29 10:05 | P.PNIM_ITS ---
Subjective Subjective Date of Service: 03/29/25 Interval History: No new issues Physical Exam 2 Exam: Exam: General: Alert but confused at baseline, no acute distress Resp: CTA bilateral CVS: S1,S2,RRR GI: +BS, NT, no distention Skin: No rash Neuro: motor grossly intact Psych: appropriate affect Vital Signs: Vital Signs: Last Vital Signs Temp 97.8 F 03/29/25 07:19 Pulse 57 03/29/25 07:19 Resp 18 03/29/25 07:19 BP 112/63 03/29/25 07:19 Pulse Ox 97 03/29/25 07:19 O2 Del Method Room Air 03/29/25 07:19 O2 Flow Rate 3 03/07/25 23:35 BMI result Body Mass Index 23.3 Objective Data Active Medications Acetaminophen (Acetaminophen 325 Mg Tablet) 650 mg PO Q6H PRN PRN Reason: Headache/Pain, Scale 1-10 Al Hydroxide/Mg Hydroxide (Magnesium Hydrox/Alum Hydrox 30 Ml Oral.Susp) 30 ml PO Q6H PRN PRN Reason: Heartburn/Nausea Last Admin: 03/20/25 15:11 Dose: 30 ml Documented By: KERRI Calcium Carbonate (Calcium Carbonate 750 Mg Tab.Chew) 750 mg PO Q4H PRN PRN Reason: Heartburn Clozapine (Clozapine 25 Mg Tablet) 50 mg PO TID [facility] Last Admin: 03/29/25 08:24 Dose: 50 mg Documented By: KERRI Dextrose (Dextrose 50 % 25 Gm/50 Ml Syringe) 25 gm IVPUSH Q15M PRN; Protocol PRN Reason: per Hypoglycemia Standing Ord. Docusate Sodium (Docusate Sodium 100 Mg/10 Ml Liquid) 100 mg G-TUBE BID [facility] Last Admin: 03/29/25 08:25 Dose: Not Given Documented By: KERRI Non-Admin Reason: Patient Refused Enoxaparin Sodium (Enoxaparin Sodium 40 Mg/0.4 Ml Syringe) 40 mg SUBCUT Q24H [facility] Last Admin: 03/29/25 08:29 Dose: 40 mg Documented By: KERRI Fluoxetine HCl (Fluoxetine Hcl 20 Mg Capsule) 40 mg PO BEDTIME [facility] On Hold: 02/22/25 14:23 Last Admin: 02/21/25 22:23 Dose: Not Given Documented By: PAPITO Non-Admin Reason: pt refused Glucagon (Glucagon Hcl 1 Mg Vial) 1 mg IM Q20M PRN PRN Reason: low BG Glucose (Glucose Gel 15 Gm Gel..Gram.) 15 gm PO Q15M PRN; Protocol PRN Reason: per Hypoglycemia Standing Ord. Hydralazine HCl (Hydralazine Hcl 20 Mg/Ml Vial) 5 mg IVPUSH Q6H PRN; Protocol PRN Reason: htn Last Admin: 02/23/25 17:30 Dose: 5 mg Documented By: JAYME Valproic Acid 500 mg/ Dextrose 55 mls @ 52.506 mls/hr IV Q12H [facility] Last Infusion: 03/29/25 09:49 Dose: Infused Documented By: KERRI Insulin Glargine (Insulin Glargine,Hum.Rec.Anlog 100 Unit/Ml 10 Ml Vial) 30 unit SUBCUT DAILY [facility] On Hold: 03/14/25 09:00 Insulin Human Lispro (Insulin Lispro 100 Unit/Ml 3 Ml Vial) 0 unit SUBCUT QIDACHS [facility]; Protocol Last Admin: 03/29/25 07:36 Dose: Not Given Documented By: KERRI Non-Admin Reason: No Insulin Coverage Magnesium Hydroxide (Milk Of Magnesia 30 Ml Oral.Susp) 30 ml PO DAILY PRN PRN Reason: Constipation Melatonin (Melatonin 3 Mg Tablet) 6 mg PO BEDTIME PRN PRN Reason: Insomnia Last Admin: 03/28/25 20:39 Dose: 6 mg Documented By: WES Metoprolol Tartrate (Metoprolol Tartrate 12.5 Mg Halftab) 12.5 mg PO BID [facility]; Protocol Last Admin: 03/29/25 08:24 Dose: 12.5 mg Documented By: KERRI Naloxone HCl (Naloxone Hcl 0.4 Mg/Ml Vial) 0.04 mg IVPUSH Q5M PRN PRN Reason: Excessive sedation or RR < 8 Nystatin (Nystatin Powder 15 Gm Bottle) 1 appl TOPICAL BID [facility]; Protocol Last Admin: 03/29/25 08:25 Dose: 1 appl Documented By: KERRI Omeprazole (Omeprazole/Na Bicarb Oral Susp 20 Mg/10 Ml Ud Cup) 20 mg G-TUBE DAILY@0630 [facility] Last Admin: 03/29/25 05:42 Dose: Not Given Documented By: WES Non-Admin Reason: Patient Refused Perphenazine (Perphenazine 2 Mg Tablet) 2 mg PO BID [facility] Last Admin: 03/29/25 08:24 Dose: 2 mg Documented By: KERRI Perphenazine (Perphenazine 4 Mg Tablet) 4 mg PO BID [facility] Last Admin: 03/29/25 08:24 Dose: 4 mg Documented By: KERRI Senna (Sennosides 8.6 Mg Tablet) 8.6 mg PO DAILY [facility] Last Admin: 03/29/25 08:24 Dose: 8.6 mg Documented By: KERRI Sodium Biphosphate/Sodium Phosphate (Sodium Phosphate,[place]-Dibasic 133 Ml Enema) 133 ml [place] DAILY PRN PRN Reason: Constipation Last Admin: 03/11/25 12:18 Dose: 133 ml Documented By: STEPHANE Sodium Chloride (0.9 % Sodium Chloride Flush 3 Ml Syringe) 3 ml IVFLUSH QSHIFT [facility] Last Admin: 03/29/25 08:26 Dose: 3 ml Documented By: KERRI Trazodone HCl (Trazodone Hcl 50 Mg Tablet) 50 mg PO BEDTIME MRX1 PRN PRN Reason: Insomnia Last Admin: 03/20/25 21:26 Dose: 50 mg Documented By: RAMIRO Labs 03/25/25 09:38 03/25/25 09:38 Labs: Laboratory Results - last 24 hr 03/28/25 03/28/25 03/28/25 11:34 16:34 19:32 POC Glucose 161 H 172 H 224 H 03/29/25 07:21 POC Glucose 141 H Assessment and Plan (1) Fall: Status: Acute (2) Alzheimer's dementia: Status: Acute (3) Schizoaffective disorder: Status: Acute Plan 69-year-old male with a history of schizoaffective disorder (with psychotic features), major depressive disorder, diabetes, and GERD presented to the ED on 02/14/2025 after multiple falls. He was admitted for acute multifactorial encephalopathy, which was complicated by acute hypoxic respiratory failure secondary to aspiration pneumonia on 02/16/2025. essentially no change Acute toxic/metabolic encephalopathyAcute hypoxic respiratory failure d/t Aspiration pneumonia Completed IV Unasyn; blood cultures negative. Weaned off supplemental oxygen, currently maintaining goal saturation of 95%. Aspiration precautions in place. Dysphagia: Evaluated by speech and swallow; recommended nectar-thickened liquids. Initially had poor oral intake and required TPN. Underwent G-tube placement on 03/02/2025. Tube feeds are being held while he is able to eat orally. Currently tolerating oral intake with NDD2 diet and nectar-thickened liquids. Psychiatric History: Schizoaffective disorder with psychotic features: Intermittent refusal of psychiatric medications and vital sign monitoring. Continue current regimen: fluoxetine, perphenazine (Trilafon), valproic acid (Depakote), clozapine (Clozaril), and valium. Psych follow-up as needed. Other Medical Issues: Diabetes, uncontrolled: continue Lantus 30 units; continue sliding scale insulin. Hypertension: No current management; blood pressure within normal limits. Summary: Patient is recovering from aspiration pneumonia and acute encephalopathy, now tolerating oral intake with dietary modifications. Psychiatric and medical management ongoing and need placement Routine labs 03/25/25 cbc, bmp unremarkable [facility] - VTE: Enoxaparin - CODE STATUS: Full code - DIET: NDD2 and [place] thick - DISPOSITION: Pending placement Quality Stroke Does the patient have a stroke diagnosis?: No VTE Prior VTE?: No VTE Risk Level:: Medical - moderate - high VTE Device Contraindication: Treatment Not Indicated VTE Drug Contraindication: N/A - Med Ordered
[2025-03-29 11:17] LABS: Glucose, Whole Blood 202 mg/dL (60-115)
[2025-03-29 16:00] VITALS: BP 143/65; PULSE 65; RESP 16; TEMP 36.4; O2SAT 98
[2025-03-29 16:29] LABS: Glucose, Whole Blood 164 mg/dL (60-115)
[2025-03-29 19:45] VITALS: BP 137/66; PULSE 70; RESP 16; TEMP 36.4; O2SAT 98
[2025-03-29 20:10] LABS: Glucose, Whole Blood 177 mg/dL (60-115)
[2025-03-30 03:12] VITALS: BP 140/63; PULSE 62; RESP 14; TEMP 36.3; O2SAT 99
[2025-03-30] MEDS: Omeprazole/Na Bicarb Oral Susp 20 MG/10 ML UD Cup G-TUBE (05:54)
[2025-03-30 07:42] LABS: Glucose, Whole Blood 143 mg/dL (60-115)
[2025-03-30 07:56] VITALS: BP 152/70; PULSE 68; RESP 14; TEMP 36.3; O2SAT 100
[2025-03-30] MEDS: 0.9 % Sodium Chloride Flush 3 ML SYRINGE IVFLUSH ×3 (08:05→20:17)
[2025-03-30] MEDS: Valproic Acid (as Sodium Salt) 500 MG in Dextrose 5 % 50 ML 52.5 MG IV ×2 (08:05→20:11)
[2025-03-30] MEDS: Metoprolol Tartrate 12.5 MG HALFTAB PO ×2 (08:05→20:10)
--- NOTE | 2025-03-30 10:21 | HO.PM.IMPN ---
Subjective Subjective Date of Service: 03/30/25 Interval History: Remains at baseline confusion Physical Exam Exam: Exam: General: Alert but confused at baseline, no acute distress Resp: CTA bilateral CVS: S1,S2,RRR GI: +BS, NT, no distention Skin: No rash Neuro: motor grossly intact Psych: appropriate affect Vital Signs: Vital Signs: Last Vital Signs Temp 97.3 F 03/30/25 07:56 Pulse 68 03/30/25 07:56 Resp 14 03/30/25 07:56 BP 152/70 H 03/30/25 07:56 Pulse Ox 100 03/30/25 07:56 O2 Del Method Room Air 03/30/25 07:56 O2 Flow Rate 3 03/07/25 23:35 BMI result Body Mass Index 23.3 Objective Data Active Medications Acetaminophen (Acetaminophen 325 Mg Tablet) 650 mg PO Q6H PRN PRN Reason: Headache/Pain, Scale 1-10 Al Hydroxide/Mg Hydroxide (Magnesium Hydrox/Alum Hydrox 30 Ml Oral.Susp) 30 ml PO Q6H PRN PRN Reason: Heartburn/Nausea Last Admin: 03/20/25 15:11 Dose: 30 ml Documented By: KERRI Calcium Carbonate (Calcium Carbonate 750 Mg Tab.Chew) 750 mg PO Q4H PRN PRN Reason: Heartburn Clozapine (Clozapine 25 Mg Tablet) 50 mg PO TID [facility] Last Admin: 03/30/25 08:05 Dose: 50 mg Documented By: TERESA Dextrose (Dextrose 50 % 25 Gm/50 Ml Syringe) 25 gm IVPUSH Q15M PRN; Protocol PRN Reason: per Hypoglycemia Standing Ord. Docusate Sodium (Docusate Sodium 100 Mg/10 Ml Liquid) 100 mg G-TUBE BID [facility] Last Admin: 03/30/25 08:05 Dose: 100 mg Documented By: TERESA Enoxaparin Sodium (Enoxaparin Sodium 40 Mg/0.4 Ml Syringe) 40 mg SUBCUT Q24H [facility] Last Admin: 03/30/25 08:05 Dose: 40 mg Documented By: TERESA Fluoxetine HCl (Fluoxetine Hcl 20 Mg Capsule) 40 mg PO BEDTIME [facility] On Hold: 02/22/25 14:23 Last Admin: 02/21/25 22:23 Dose: Not Given Documented By: PAPITO Non-Admin Reason: pt refused Glucagon (Glucagon Hcl 1 Mg Vial) 1 mg IM Q20M PRN PRN Reason: low BG Glucose (Glucose Gel 15 Gm Gel..Gram.) 15 gm PO Q15M PRN; Protocol PRN Reason: per Hypoglycemia Standing Ord. Hydralazine HCl (Hydralazine Hcl 20 Mg/Ml Vial) 5 mg IVPUSH Q6H PRN; Protocol PRN Reason: htn Last Admin: 02/23/25 17:30 Dose: 5 mg Documented By: JAYME Valproic Acid 500 mg/ Dextrose 55 mls @ 52.506 mls/hr IV Q12H [facility] Last Infusion: 03/30/25 09:12 Dose: Infused Documented By: TERESA Insulin Glargine (Insulin Glargine,Hum.Rec.Anlog 100 Unit/Ml 10 Ml Vial) 30 unit SUBCUT DAILY [facility] On Hold: 03/14/25 09:00 Insulin Human Lispro (Insulin Lispro 100 Unit/Ml 3 Ml Vial) 0 unit SUBCUT QIDACHS [facility]; Protocol Last Admin: 03/30/25 07:38 Dose: Not Given Documented By: TERESA Non-Admin Reason: No Insulin Coverage Magnesium Hydroxide (Milk Of Magnesia 30 Ml Oral.Susp) 30 ml PO DAILY PRN PRN Reason: Constipation Melatonin (Melatonin 3 Mg Tablet) 6 mg PO BEDTIME PRN PRN Reason: Insomnia Last Admin: 03/28/25 20:39 Dose: 6 mg Documented By: WES Metoprolol Tartrate (Metoprolol Tartrate 12.5 Mg Halftab) 12.5 mg PO BID [facility]; Protocol Last Admin: 03/30/25 08:05 Dose: 12.5 mg Documented By: TERESA Naloxone HCl (Naloxone Hcl 0.4 Mg/Ml Vial) 0.04 mg IVPUSH Q5M PRN PRN Reason: Excessive sedation or RR < 8 Nystatin (Nystatin Powder 15 Gm Bottle) 1 appl TOPICAL BID [facility]; Protocol Last Admin: 03/30/25 08:06 Dose: 1 appl Documented By: TERESA Omeprazole (Omeprazole/Na Bicarb Oral Susp 20 Mg/10 Ml Ud Cup) 20 mg G-TUBE DAILY@0630 [facility] Last Admin: 03/30/25 05:54 Dose: 20 mg Documented By: CISCO Perphenazine (Perphenazine 2 Mg Tablet) 2 mg PO BID [facility] Last Admin: 03/30/25 08:05 Dose: 2 mg Documented By: TERESA Perphenazine (Perphenazine 4 Mg Tablet) 4 mg PO BID [facility] Last Admin: 03/30/25 08:05 Dose: 4 mg Documented By: TERESA Senna (Sennosides 8.6 Mg Tablet) 8.6 mg PO DAILY [facility] Last Admin: 03/30/25 08:05 Dose: 8.6 mg Documented By: TERESA Sodium Biphosphate/Sodium Phosphate (Sodium Phosphate,[place]-Dibasic 133 Ml Enema) 133 ml [place] DAILY PRN PRN Reason: Constipation Last Admin: 03/11/25 12:18 Dose: 133 ml Documented By: STEPHANE Sodium Chloride (0.9 % Sodium Chloride Flush 3 Ml Syringe) 3 ml IVFLUSH QSHIFT [facility] Last Admin: 03/30/25 08:05 Dose: 3 ml Documented By: TERESA Trazodone HCl (Trazodone Hcl 50 Mg Tablet) 50 mg PO BEDTIME MRX1 PRN PRN Reason: Insomnia Last Admin: 03/20/25 21:26 Dose: 50 mg Documented By: RAMIRO Labs 03/25/25 09:38 03/25/25 09:38 Labs: Laboratory Results - last 24 hr 03/29/25 03/29/25 03/29/25 11:12 16:25 20:05 POC Glucose 202 H 164 H 177 H 03/30/25 07:36 POC Glucose 143 H Assessment and Plan (1) Fall: Status: Acute (2) Alzheimer's dementia: Status: Acute (3) Schizoaffective disorder: Status: Acute Plan 69-year-old male with a history of schizoaffective disorder (with psychotic features), major depressive disorder, diabetes, and GERD presented to the ED on 02/14/2025 after multiple falls. He was admitted for acute multifactorial encephalopathy, which was complicated by acute hypoxic respiratory failure secondary to aspiration pneumonia on 02/16/2025. Essentially no new issues, reamins confused at baseline Acute toxic/metabolic encephalopathyAcute hypoxic respiratory failure d/t Aspiration pneumonia Completed IV Unasyn; blood cultures negative. Weaned off supplemental oxygen, currently maintaining goal saturation of 95%. Aspiration precautions in place. Dysphagia: Evaluated by speech and swallow; recommended nectar-thickened liquids. Initially had poor oral intake and required TPN. Underwent G-tube placement on 03/02/2025. Tube feeds are being held while he is able to eat orally. Currently tolerating oral intake with NDD2 diet and nectar-thickened liquids. Psychiatric History: Schizoaffective disorder with psychotic features: Intermittent refusal of psychiatric medications and vital sign monitoring. Continue current regimen: fluoxetine, perphenazine (Trilafon), valproic acid (Depakote), clozapine (Clozaril), and valium. Psych follow-up as needed. Other Medical Issues: Diabetes, uncontrolled: continue Lantus 30 units; continue sliding scale insulin. Hypertension: No current management; blood pressure within normal limits. Summary: Patient is recovering from aspiration pneumonia and acute encephalopathy, now tolerating oral intake with dietary modifications. Psychiatric and medical management ongoing and need placement Routine labs 03/25/25 cbc, bmp unremarkable [facility] - VTE: Enoxaparin - CODE STATUS: Full code - DIET: NDD2 and [place] thick - DISPOSITION: Pending placement Quality Stroke Does the patient have a stroke diagnosis?: No VTE Prior VTE?: No VTE Risk Level:: Medical - moderate - high VTE Device Contraindication: Treatment Not Indicated VTE Drug Contraindication: N/A - Med Ordered
[2025-03-30 11:51] LABS: Glucose, Whole Blood 190 mg/dL (60-115)
--- NOTE | 2025-03-30 13:02 | MHC.SLORD ---
Speech Language Pathology Order Status: RN consulted, pt ate lunch, remains on NTL but pt expresses dislike for thickened liquids. TRAIN [employer]RAKEMAN to re-assess pt tolerance of thin liquids.
[2025-03-30 16:00] VITALS: BP 145/67; PULSE 70; RESP 19; TEMP 36.2; O2SAT 100
--- NOTE | 2025-03-30 16:08 | MHC.CM.PN ---
PT AWAITING [facility]ARDIAN HAS INDICATED ALL DOCUMENTS HAVE BEEN SUBMITTED TO .
[2025-03-30 16:27] LABS: Glucose, Whole Blood 184 mg/dL (60-115)
[2025-03-30 19:20] VITALS: BP 120/75; PULSE 78; RESP 18; TEMP 36.2; O2SAT 99
[2025-03-30 19:43] LABS: Glucose, Whole Blood 144 mg/dL (60-115)
[2025-03-31 03:13] VITALS: BP 120/58; PULSE 66; RESP 15; TEMP 36.2; O2SAT 97
[2025-03-31] MEDS: Omeprazole/Na Bicarb Oral Susp 20 MG/10 ML UD Cup G-TUBE (05:47)
[2025-03-31 07:39] LABS: Glucose, Whole Blood 141 mg/dL (60-115)
--- NOTE | 2025-03-31 07:57 | MHC.CM.PN ---
This movie writer left for Ship Worker for update, awaiting return phone call.
[2025-03-31 08:10] VITALS: BP 142/72; PULSE 72; RESP 12; TEMP 36.4; O2SAT 97
--- NOTE | 2025-03-31 08:38 | HO.PM.IMPN ---
Subjective Subjective Date of Service: 03/31/25 Interval History: Remains at baseline confusion Physical Exam Exam: Exam: General: Alert but confused at baseline, no acute distress Resp: CTA bilateral CVS: S1,S2,RRR GI: +BS, NT, no distention Skin: No rash Neuro: motor grossly intact Psych: appropriate affect Vital Signs: Vital Signs: Last Vital Signs Temp 97.5 F 03/31/25 08:10 Pulse 72 03/31/25 08:10 Resp 12 03/31/25 08:10 BP 142/72 H 03/31/25 08:10 Pulse Ox 97 03/31/25 08:10 O2 Del Method Room Air 03/31/25 08:10 O2 Flow Rate 3 03/07/25 23:35 BMI result Body Mass Index 23.3 Objective Data Active Medications Acetaminophen (Acetaminophen 325 Mg Tablet) 650 mg PO Q6H PRN PRN Reason: Headache/Pain, Scale 1-10 Al Hydroxide/Mg Hydroxide (Magnesium Hydrox/Alum Hydrox 30 Ml Oral.Susp) 30 ml PO Q6H PRN PRN Reason: Heartburn/Nausea Last Admin: 03/20/25 15:11 Dose: 30 ml Documented By: KERRI Calcium Carbonate (Calcium Carbonate 750 Mg Tab.Chew) 750 mg PO Q4H PRN PRN Reason: Heartburn Clozapine (Clozapine 25 Mg Tablet) 50 mg PO TID [facility] Last Admin: 03/30/25 20:10 Dose: 50 mg Documented By: CISCO Dextrose (Dextrose 50 % 25 Gm/50 Ml Syringe) 25 gm IVPUSH Q15M PRN; Protocol PRN Reason: per Hypoglycemia Standing Ord. Docusate Sodium (Docusate Sodium 100 Mg/10 Ml Liquid) 100 mg G-TUBE BID [facility] Last Admin: 03/30/25 20:56 Dose: Not Given Documented By: CISCO Non-Admin Reason: Patient Refused Enoxaparin Sodium (Enoxaparin Sodium 40 Mg/0.4 Ml Syringe) 40 mg SUBCUT Q24H [facility] Last Admin: 03/30/25 08:05 Dose: 40 mg Documented By: TERESA Fluoxetine HCl (Fluoxetine Hcl 20 Mg Capsule) 40 mg PO BEDTIME [facility] On Hold: 02/22/25 14:23 Last Admin: 02/21/25 22:23 Dose: Not Given Documented By: PAPITO Non-Admin Reason: pt refused Glucagon (Glucagon Hcl 1 Mg Vial) 1 mg IM Q20M PRN PRN Reason: low BG Glucose (Glucose Gel 15 Gm Gel..Gram.) 15 gm PO Q15M PRN; Protocol PRN Reason: per Hypoglycemia Standing Ord. Hydralazine HCl (Hydralazine Hcl 20 Mg/Ml Vial) 5 mg IVPUSH Q6H PRN; Protocol PRN Reason: htn Last Admin: 02/23/25 17:30 Dose: 5 mg Documented By: JAYME Valproic Acid 500 mg/ Dextrose 55 mls @ 52.506 mls/hr IV Q12H [facility] Last Infusion: 03/30/25 21:27 Dose: Infused Documented By: CISCO Insulin Glargine (Insulin Glargine,Hum.Rec.Anlog 100 Unit/Ml 10 Ml Vial) 30 unit SUBCUT DAILY [facility] On Hold: 03/14/25 09:00 Insulin Human Lispro (Insulin Lispro 100 Unit/Ml 3 Ml Vial) 0 unit SUBCUT QIDACHS [facility]; Protocol Last Admin: 03/31/25 07:44 Dose: Not Given Documented By: TERESA Non-Admin Reason: No Insulin Coverage Magnesium Hydroxide (Milk Of Magnesia 30 Ml Oral.Susp) 30 ml PO DAILY PRN PRN Reason: Constipation Melatonin (Melatonin 3 Mg Tablet) 6 mg PO BEDTIME PRN PRN Reason: Insomnia Last Admin: 03/28/25 20:39 Dose: 6 mg Documented By: WES Metoprolol Tartrate (Metoprolol Tartrate 12.5 Mg Halftab) 12.5 mg PO BID [facility]; Protocol Last Admin: 03/30/25 20:10 Dose: 12.5 mg Documented By: CISCO Naloxone HCl (Naloxone Hcl 0.4 Mg/Ml Vial) 0.04 mg IVPUSH Q5M PRN PRN Reason: Excessive sedation or RR < 8 Nystatin (Nystatin Powder 15 Gm Bottle) 1 appl TOPICAL BID [facility]; Protocol Last Admin: 03/30/25 20:19 Dose: 1 appl Documented By: CISCO Omeprazole (Omeprazole/Na Bicarb Oral Susp 20 Mg/10 Ml Ud Cup) 20 mg G-TUBE DAILY@0630 [facility] Last Admin: 03/31/25 05:47 Dose: 20 mg Documented By: CISCO Perphenazine (Perphenazine 2 Mg Tablet) 2 mg PO BID [facility] Last Admin: 03/30/25 20:11 Dose: 2 mg Documented By: CISCO Perphenazine (Perphenazine 4 Mg Tablet) 4 mg PO BID [facility] Last Admin: 03/30/25 20:10 Dose: 4 mg Documented By: CISCO Senna (Sennosides 8.6 Mg Tablet) 8.6 mg PO DAILY [facility] Last Admin: 03/30/25 08:05 Dose: 8.6 mg Documented By: LUCIA Sodium Biphosphate/Sodium Phosphate (Sodium Phosphate,[place]-Dibasic 133 Ml Enema) 133 ml [place] DAILY PRN PRN Reason: Constipation Last Admin: 03/11/25 12:18 Dose: 133 ml Documented By: STEPHANE Sodium Chloride (0.9 % Sodium Chloride Flush 3 Ml Syringe) 3 ml IVFLUSH QSHIFT [facility] Last Admin: 03/30/25 20:17 Dose: 3 ml Documented By: CISCO Trazodone HCl (Trazodone Hcl 50 Mg Tablet) 50 mg PO BEDTIME MRX1 PRN PRN Reason: Insomnia Last Admin: 03/20/25 21:26 Dose: 50 mg Documented By: RAMIRO Labs 03/25/25 09:38 03/25/25 09:38 Labs: Laboratory Results - last 24 hr 03/30/25 03/30/25 03/30/25 11:43 16:24 19:39 POC Glucose 190 H 184 H 144 H 03/31/25 07:29 POC Glucose 141 H Assessment and Plan (1) Fall: Status: Acute (2) Alzheimer's dementia: Status: Acute (3) Schizoaffective disorder: Status: Acute Plan 69-year-old male with a history of schizoaffective disorder (with psychotic features), major depressive disorder, diabetes, and GERD presented to the ED on 02/14/2025 after multiple falls. He was admitted for acute multifactorial encephalopathy, which was complicated by acute hypoxic respiratory failure secondary to aspiration pneumonia on 02/16/2025. Essentially no new issues, reamins confused at baseline Acute toxic/metabolic encephalopathyAcute hypoxic respiratory failure d/t Aspiration pneumonia Completed IV Unasyn; blood cultures negative. Weaned off supplemental oxygen, currently maintaining goal saturation of 95%. Aspiration precautions in place. Dysphagia: Evaluated by speech and swallow; recommended nectar-thickened liquids. Initially had poor oral intake and required TPN. Underwent G-tube placement on 03/02/2025. Tube feeds are being held while he is able to eat orally. Currently tolerating oral intake with NDD2 diet and nectar-thickened liquids. Psychiatric History: Schizoaffective disorder with psychotic features: Intermittent refusal of psychiatric medications and vital sign monitoring. Continue current regimen: fluoxetine, perphenazine (Trilafon), valproic acid (Depakote), clozapine (Clozaril), and valium. Psych follow-up as needed. Other Medical Issues: Diabetes, uncontrolled: continue Lantus 30 units; continue sliding scale insulin. Hypertension: No current management; blood pressure within normal limits. Summary: Patient is recovering from aspiration pneumonia and acute encephalopathy, now tolerating oral intake with dietary modifications. Psychiatric and medical management ongoing and need placement Routine labs 03/25/25 cbc, bmp unremarkable [facility] - VTE: Enoxaparin - CODE STATUS: Full code - DIET: NDD2 and [place] thick - DISPOSITION: Pending placement Quality Stroke Does the patient have a stroke diagnosis?: No VTE Prior VTE?: No VTE Risk Level:: Medical - moderate - high VTE Device Contraindication: Treatment Not Indicated VTE Drug Contraindication: N/A - Med Ordered
[2025-03-31] MEDS: Valproic Acid (as Sodium Salt) 500 MG in Dextrose 5 % 50 ML 52.5 MG IV ×2 (08:57→20:32)
[2025-03-31] MEDS: Metoprolol Tartrate 12.5 MG HALFTAB PO ×2 (08:58→20:30)
[2025-03-31] MEDS: 0.9 % Sodium Chloride Flush 3 ML SYRINGE IVFLUSH ×3 (08:58→20:31)
[2025-03-31 11:31] LABS: Glucose, Whole Blood 180 mg/dL (60-115)
[2025-03-31 15:21] VITALS: BP 141/65; PULSE 74; RESP 17; TEMP 36.4; O2SAT 98
[2025-03-31 16:15] LABS: Glucose, Whole Blood 214 mg/dL (60-115)
[2025-03-31 18:52] VITALS: BP 122/63; PULSE 74; RESP 18; TEMP 36.1; O2SAT 99
[2025-03-31 20:38] LABS: Glucose, Whole Blood 147 mg/dL (60-115)
[2025-04-01 04:00] VITALS: BP 126/62; PULSE 57; RESP 18; TEMP 36.3; O2SAT 96
[2025-04-01] MEDS: Omeprazole/Na Bicarb Oral Susp 20 MG/10 ML UD Cup G-TUBE (05:39)
[2025-04-01 06:53] VITALS: BP 156/72; PULSE 60; RESP 16; TEMP 36.6; O2SAT 93
[2025-04-01 07:19] LABS: Glucose, Whole Blood 140 mg/dL (60-115)
--- NOTE | 2025-04-01 07:57 | P.PNIM_ITS ---
Subjective Subjective Date of Service: 04/01/25 Interval History: Remains at baseline confusion Review of Systems as above. Review of Systems: Yes all other systems are reviewed and are negative Physical Exam 2 Exam: Exam: General: Alert but confused at baseline, no acute distress Resp: CTA bilateral CVS: S1,S2,RRR GI: +BS, NT, no distention Skin: No rash Neuro: motor grossly intact Psych: appropriate affect Vital Signs: Vital Signs: Last Vital Signs Temp 98 F 04/01/25 06:53 Pulse 60 04/01/25 06:53 Resp 16 04/01/25 06:53 BP 156/72 H 04/01/25 06:53 Pulse Ox 93 04/01/25 06:53 O2 Del Method Room Air 04/01/25 06:53 O2 Flow Rate 3 03/07/25 23:35 BMI result Body Mass Index 23.3 Objective Data Active Medications Acetaminophen (Acetaminophen 325 Mg Tablet) 650 mg PO Q6H PRN PRN Reason: Headache/Pain, Scale 1-10 Al Hydroxide/Mg Hydroxide (Magnesium Hydrox/Alum Hydrox 30 Ml Oral.Susp) 30 ml PO Q6H PRN PRN Reason: Heartburn/Nausea Last Admin: 03/20/25 15:11 Dose: 30 ml Documented By: KERRI Calcium Carbonate (Calcium Carbonate 750 Mg Tab.Chew) 750 mg PO Q4H PRN PRN Reason: Heartburn Clozapine (Clozapine 25 Mg Tablet) 50 mg PO TID [facility] Last Admin: 03/31/25 20:29 Dose: 50 mg Documented By: SHINE Dextrose (Dextrose 50 % 25 Gm/50 Ml Syringe) 25 gm IVPUSH Q15M PRN; Protocol PRN Reason: per Hypoglycemia Standing Ord. Docusate Sodium (Docusate Sodium 100 Mg/10 Ml Liquid) 100 mg G-TUBE BID [facility] Last Admin: 03/31/25 21:17 Dose: Not Given Documented By: SHINE Non-Admin Reason: Patient Refused Enoxaparin Sodium (Enoxaparin Sodium 40 Mg/0.4 Ml Syringe) 40 mg SUBCUT Q24H [facility] Last Admin: 03/31/25 08:58 Dose: 40 mg Documented By: TERESA Fluoxetine HCl (Fluoxetine Hcl 20 Mg Capsule) 40 mg PO BEDTIME NATE On Hold: 02/22/25 14:23 Last Admin: 02/21/25 22:23 Dose: Not Given Documented By: PAPITO Non-Admin Reason: pt refused Glucagon (Glucagon Hcl 1 Mg Vial) 1 mg IM Q20M PRN PRN Reason: low BG Glucose (Glucose Gel 15 Gm Gel..Gram.) 15 gm PO Q15M PRN; Protocol PRN Reason: per Hypoglycemia Standing Ord. Hydralazine HCl (Hydralazine Hcl 20 Mg/Ml Vial) 5 mg IVPUSH Q6H PRN; Protocol PRN Reason: htn Last Admin: 02/23/25 17:30 Dose: 5 mg Documented By: JAYME Valproic Acid 500 mg/ Dextrose 55 mls @ 52.506 mls/hr IV Q12H [facility] Last Infusion: 03/31/25 21:51 Dose: Infused Documented By: SHINE Insulin Glargine (Insulin Glargine,Hum.Rec.Anlog 100 Unit/Ml 10 Ml Vial) 30 unit SUBCUT DAILY [facility] On Hold: 03/14/25 09:00 Insulin Human Lispro (Insulin Lispro 100 Unit/Ml 3 Ml Vial) 0 unit SUBCUT QIDACHS [facility]; Protocol Last Admin: 04/01/25 07:45 Dose: Not Given Documented By: DEONNA Non-Admin Reason: No Insulin Coverage Magnesium Hydroxide (Milk Of Magnesia 30 Ml Oral.Susp) 30 ml PO DAILY PRN PRN Reason: Constipation Melatonin (Melatonin 3 Mg Tablet) 6 mg PO BEDTIME PRN PRN Reason: Insomnia Last Admin: 03/31/25 20:37 Dose: 6 mg Documented By: SHINE Metoprolol Tartrate (Metoprolol Tartrate 12.5 Mg Halftab) 12.5 mg PO BID [facility]; Protocol Last Admin: 03/31/25 20:30 Dose: 12.5 mg Documented By: SHINE Naloxone HCl (Naloxone Hcl 0.4 Mg/Ml Vial) 0.04 mg IVPUSH Q5M PRN PRN Reason: Excessive sedation or RR < 8 Nystatin (Nystatin Powder 15 Gm Bottle) 1 appl TOPICAL BID [facility]; Protocol Last Admin: 03/31/25 20:31 Dose: 1 appl Documented By: SHINE Omeprazole (Omeprazole/Na Bicarb Oral Susp 20 Mg/10 Ml Ud Cup) 20 mg G-TUBE DAILY@0630 [facility] Last Admin: 04/01/25 05:39 Dose: 20 mg Documented By: SHINE Perphenazine (Perphenazine 2 Mg Tablet) 2 mg PO BID [facility] Last Admin: 03/31/25 20:30 Dose: 2 mg Documented By: SHINE Perphenazine (Perphenazine 4 Mg Tablet) 4 mg PO BID [facility] Last Admin: 03/31/25 20:30 Dose: 4 mg Documented By: SHINE Senna (Sennosides 8.6 Mg Tablet) 8.6 mg PO DAILY [facility] Last Admin: 03/31/25 08:58 Dose: 8.6 mg Documented By: TERESA Sodium Biphosphate/Sodium Phosphate (Sodium Phosphate,[place]-Dibasic 133 Ml Enema) 133 ml [place] DAILY PRN PRN Reason: Constipation Last Admin: 03/11/25 12:18 Dose: 133 ml Documented By: STEPHANE Sodium Chloride (0.9 % Sodium Chloride Flush 3 Ml Syringe) 3 ml IVFLUSH QSHIFT [facility] Last Admin: 03/31/25 20:31 Dose: 3 ml Documented By: SHINE Trazodone HCl (Trazodone Hcl 50 Mg Tablet) 50 mg PO BEDTIME MRX1 PRN PRN Reason: Insomnia Last Admin: 03/20/25 21:26 Dose: 50 mg Documented By: RAMIRO Labs 03/25/25 09:38 04/01/25 08:23 Labs: Laboratory Results - last 24 hr 03/31/25 03/31/25 03/31/25 11:27 16:09 20:33 POC Glucose 180 H 214 H 147 H 04/01/25 07:09 POC Glucose 140 H Assessment and Plan (1) Fall: Status: Acute (2) Alzheimer's dementia: Status: Acute (3) Schizoaffective disorder: Status: Acute Plan 69-year-old male with a history of schizoaffective disorder (with psychotic features), major depressive disorder, diabetes, and GERD presented to the ED on 02/14/2025 after multiple falls. He was admitted for acute multifactorial encephalopathy, which was complicated by acute hypoxic respiratory failure secondary to aspiration pneumonia on 02/16/2025. Essentially no new issues, reamins confused at baseline Acute toxic/metabolic encephalopathyAcute hypoxic respiratory failure d/t Aspiration pneumonia Completed IV Unasyn; blood cultures negative. Weaned off supplemental oxygen, currently maintaining goal saturation of 95%. Aspiration precautions in place. Dysphagia: Evaluated by speech and swallow; recommended nectar-thickened liquids. Initially had poor oral intake and required TPN. Underwent G-tube placement on 03/02/2025. Tube feeds are being held while he is able to eat orally. Currently tolerating oral intake with NDD2 diet and nectar-thickened liquids. Psychiatric History: Schizoaffective disorder with psychotic features: Intermittent refusal of psychiatric medications and vital sign monitoring. Continue current regimen: fluoxetine, perphenazine (Trilafon), valproic acid (Depakote), clozapine (Clozaril), and valium. Psych follow-up as needed. Other Medical Issues: Diabetes, uncontrolled: continue Lantus 30 units; continue sliding scale insulin. Hypertension: No current management; blood pressure within normal limits. Summary: Patient is recovering from aspiration pneumonia and acute encephalopathy, now tolerating oral intake with dietary modifications. Psychiatric and medical management ongoing and need placement Routine labs 03/25/25 cbc, bmp unremarkable [facility]AL[facility]RICS - VTE: Enoxaparin - CODE STATUS: Full code - DIET: NDD2 and [place] thick - DISPOSITION: Pending placement Quality Stroke Does the patient have a stroke diagnosis?: No VTE Prior VTE?: No VTE Risk Level:: Medical - moderate - high VTE Device Contraindication: Treatment Not Indicated VTE Drug Contraindication: N/A - Med Ordered
[2025-04-01] MEDS: Metoprolol Tartrate 12.5 MG HALFTAB PO ×2 (08:45→20:09)
[2025-04-01] MEDS: 0.9 % Sodium Chloride Flush 3 ML SYRINGE IVFLUSH ×2 (08:45→16:06)
[2025-04-01 08:49] LABS: Anion Gap 10 (12-20); Blood Urea Nitrogen 17 mg/dL (9-16); Calcium 9.0 mg/dL (8.4-10.2); Carbon Dioxide 31 mmol/L (22-29); Chloride 108 mmol/L (96-108); Creatinine Clr Calc Pharmacy 72.0; Estimated Glomerular Filt Rate > 60; Potassium 4.0 mmol/L (3.3-5.1); Sodium 145 mmol/L (135-145)
[2025-04-01] MEDS: Valproic Acid (as Sodium Salt) 500 MG in Dextrose 5 % 50 ML 52 MG IV (08:59)
--- NOTE | 2025-04-01 09:51 | PC.NURSE ---
Calm and cooperative with care this shift.
[2025-04-01 11:13] LABS: Glucose, Whole Blood 217 mg/dL (60-115)
--- NOTE | 2025-04-01 12:32 | MHC.SLORD ---
Speech Language Pathology Order Status: CORRUGATOR HELPER to return at lunch time to assess pt PO tolerance as he was resting this morning and refused PO.
--- NOTE | 2025-04-01 14:39 | MHC.CM.PN ---
This script writer placed call to Director Fundraising [employer]Dandre malorie mail, awaiting return phone call. Call placed to [facility] business office to inquire if they have any updated information as they had initiated the [facility] german. [facility] reports that responded to their document submission on 03/10 looking for additional information on a spend down. In the process of gathering documentation for spend down, [facility] requested a fair hearing to waive the request for supporting documentation. They report getting the needed information this week and it was emailed to , they are awaiting a response. There is a fair hearing scheduled for 04/20.
[2025-04-01 15:37] VITALS: BP 120/62; PULSE 70; RESP 16; TEMP 36.8; O2SAT 99
[2025-04-01 16:37] LABS: Glucose, Whole Blood 128 mg/dL (60-115)
[2025-04-01 19:49] VITALS: BP 114/58; PULSE 72; RESP 18; TEMP 36.4; O2SAT 97
[2025-04-01 20:16] LABS: Glucose, Whole Blood 189 mg/dL (60-115)
[2025-04-01] MEDS: Valproic Acid (as Sodium Salt) 500 MG in Dextrose 5 % 50 ML 52.5 MG IV (20:16)
[2025-04-02 03:19] VITALS: BP 134/64; PULSE 64; RESP 18; TEMP 36.4; O2SAT 97
[2025-04-02] MEDS: Omeprazole/Na Bicarb Oral Susp 20 MG/10 ML UD Cup G-TUBE (05:54)
[2025-04-02 07:32] LABS: Glucose, Whole Blood 143 mg/dL (60-115)
[2025-04-02 07:39] VITALS: BP 127/58; PULSE 68; RESP 18; TEMP 36.4; O2SAT 98
[2025-04-02] MEDS: Metoprolol Tartrate 12.5 MG HALFTAB PO ×2 (08:32→20:53)
[2025-04-02] MEDS: Valproic Acid (as Sodium Salt) 500 MG in Dextrose 5 % 50 ML 52.5 MG IV ×2 (08:57→20:53)
--- NOTE | 2025-04-02 10:35 | PC.NURSE ---
Pt has been cooperative and calm. Forgetful but pleasant and easily redirected.
[2025-04-02 11:40] LABS: Glucose, Whole Blood 203 mg/dL (60-115)
--- NOTE | 2025-04-02 13:19 | MHC.SL.SWA ---
Speech Pathologist Impression: Risk of Aspiration Due to: Dysphasia Diet Status: Continue on current diet GROUND solids (NDD2) with NECTAR THICK juice, no straw/cup sip only, pills crushed in puree. Liquid Consistency and Strategies for Safe Swallow: Liquid Intake Recommendation: [place] Thick Liquid Intake Strategies: Small Sips No Straws Solid Food Consistency: Dietary Recommendations: Grnd/Mech Altered (NDD2) Additional Modifications to Solid Foods: Prepare the tray to ensure all items are opened, apply condiments, and ensure everything is accessible to the patient. Oral Medication Intake: Crushed with Puree Please contact the pharmacy regarding appropriate crushable or liquid drug formulations that are available whenever modified delivery is recommended. Compensatory Strategies and Precautions to be Taken for Safe Swallow: Sitting Upright (90 deg) No Straw Liquids from Cup Small Bites and Sips Alternate Liquids/Solids Supervision While Eating and Drinking for Safe Swallow: Direct Supervision (1:1) Foods to Avoid: Tough, difficult to chew solids. Swallowing Recommended Treatments: Compens. Strategy Educat. Recommendation for Speech: Inpatient Speech Therapy Comment:Speech/Swallow history/review: Patient seen 02/17/25 for initial clinical swallow, Patient was mostly uncooperative with the assessment, on brief assessment presented with swallow mostly WFL, but edentulous, diet recommended Ground diet with thin liquids. Over night into 02/18/25 patient became severely hypoxic with worsening aspiration pna, was made NPO by MD, and was somnolent and not seen by HEAD OF GEOGRAPHY on 02/18/25. Patient weaned from O2 on 02/19/25 seen for repeat assessment, recommended pureed solids (NDD1) and nectar thick liquids on safety tray (no knife or fork). Patient had very poor intake, was receiving TPN, then underwent g-tube placement on 03/02/25. HEAD OF GEOGRAPHY was re-consulted 03/13/25, as patient has been asking to eat. Patient re-assessed at that time, returned to diet of Ground/Mechanical (NDD2) with [place] Thick liquids, pills crushed in puree, secondary to moderate oral pharyngeal dysphagia. Patient was re-assessed for a possible upgrade of both food and liquid on 03/16, 03/26, 03/27/25, and unfortunately has not demonstrated tolerance of more advanced consistencies of food or thin liquids. Patient is edentulous, is at times impulsive and can show poor insight, increasing aspiration risk. Patient is medically stable, but is awaiting placement in LTC facility due to complex needs/history. At this point, HEAD OF GEOGRAPHY is recommending that current diet: Ground/Mechanical (NDD2) with NECTAR THICK liquids, pills whole or crushed in puree, is patient's safest, least restrictive diet, and is unlikely to advance/upgrade while inpatient at [facility], awaiting placement. No further speech/swallow service indicated at this time, HEAD OF GEOGRAPHY will complete order. Patient would benefit from Speech/Swallow to aid in managing/customizing patients dysphagia needs at receiving facility. Please re-consult if additional needs arise during this inpatient stay. Frequency/Duration: Date Range for Service Req: Timeline to reassess: Infant Childcare Provider Clinican/Clinical Fellow: No Supervisory Statement: I have reviewed and agree with the student/clinical fellow's documentation: N/A Speech Language Pathologist: Malia Worthy M.A., [facility]-HEAD OF GEOGRAPHY
--- NOTE | 2025-04-02 13:35 | HO.PM.IMPN ---
Subjective Subjective Date of Service: 04/02/25 Interval History: Remains at baseline confusion Review of Systems No new events. Physical Exam Exam: Exam: General: Alert but confused at baseline, no acute distress Resp: CTA bilateral CVS: S1,S2,RRR GI: +BS, NT, no distention Skin: No rash Neuro: motor grossly intact Psych: appropriate affect Vital Signs: Vital Signs: Last Vital Signs Temp 97.5 F 04/02/25 07:39 Pulse 68 04/02/25 07:39 Resp 18 04/02/25 07:39 BP 127/58 L 04/02/25 07:39 Pulse Ox 98 04/02/25 07:39 O2 Del Method Room Air 04/02/25 07:39 O2 Flow Rate 3 03/07/25 23:35 BMI result Body Mass Index 23.3 Objective Data Active Medications Acetaminophen (Acetaminophen 325 Mg Tablet) 650 mg PO Q6H PRN PRN Reason: Headache/Pain, Scale 1-10 Al Hydroxide/Mg Hydroxide (Magnesium Hydrox/Alum Hydrox 30 Ml Oral.Susp) 30 ml PO Q6H PRN PRN Reason: Heartburn/Nausea Last Admin: 03/20/25 15:11 Dose: 30 ml Documented By: KERRI Calcium Carbonate (Calcium Carbonate 750 Mg Tab.Chew) 750 mg PO Q4H PRN PRN Reason: Heartburn Clozapine (Clozapine 25 Mg Tablet) 50 mg PO TID REPLACED BY [facility] Last Admin: 04/02/25 08:32 Dose: 50 mg Documented By: DEONNA Dextrose (Dextrose 50 % 25 Gm/50 Ml Syringe) 25 gm IVPUSH Q15M PRN; Protocol PRN Reason: per Hypoglycemia Standing Ord. Docusate Sodium (Docusate Sodium 100 Mg/10 Ml Liquid) 100 mg G-TUBE BID [facility]PL[facility] Last Admin: 04/02/25 08:38 Dose: Not Given Documented By: DEONNA Non-Admin Reason: Patient Refused Enoxaparin Sodium (Enoxaparin Sodium 40 Mg/0.4 Ml Syringe) 40 mg SUBCUT Q24H REPLACED [facility] Last Admin: 04/02/25 08:32 Dose: 40 mg Documented By: DEONNA Fluoxetine HCl (Fluoxetine Hcl 20 Mg Capsule) 40 mg PO BEDTIME NATE On Hold: 02/22/25 14:23 Last Admin: 02/21/25 22:23 Dose: Not Given Documented By: PAPITO Non-Admin Reason: pt refused Glucagon (Glucagon Hcl 1 Mg Vial) 1 mg IM Q20M PRN PRN Reason: low BG Glucose (Glucose Gel 15 Gm Gel..Gram.) 15 gm PO Q15M PRN; Protocol PRN Reason: per Hypoglycemia Standing Ord. Hydralazine HCl (Hydralazine Hcl 20 Mg/Ml Vial) 5 mg IVPUSH Q6H PRN; Protocol PRN Reason: htn Last Admin: 02/23/25 17:30 Dose: 5 mg Documented By: JAYME Valproic Acid 500 mg/ Dextrose 55 mls @ 52.506 mls/hr IV Q12H REPLACED [facility] Last Infusion: 04/02/25 10:06 Dose: Infused Documented By: DEONNA Insulin Glargine (Insulin Glargine,Hum.Rec.Anlog 100 Unit/Ml 10 Ml Vial) 30 unit SUBCUT DAILY REPLACED BY [facility] On Hold: 03/14/25 09:00 Insulin Human Lispro (Insulin Lispro 100 Unit/Ml 3 Ml Vial) 0 unit SUBCUT QIDACHS REPLACED BY [facility]; Protocol Last Admin: 04/02/25 12:34 Dose: 4 unit Documented By: DEONNA Magnesium Hydroxide (Milk Of Magnesia 30 Ml Oral.Susp) 30 ml PO DAILY PRN PRN Reason: Constipation Melatonin (Melatonin 3 Mg Tablet) 6 mg PO BEDTIME PRN PRN Reason: Insomnia Last Admin: 03/31/25 20:37 Dose: 6 mg Documented By: SHINE Metoprolol Tartrate (Metoprolol Tartrate 12.5 Mg Halftab) 12.5 mg PO BID [facility]PL[facility]ED [facility]; Protocol Last Admin: 04/02/25 08:32 Dose: 12.5 mg Documented By: DEONNA Naloxone HCl (Naloxone Hcl 0.4 Mg/Ml Vial) 0.04 mg IVPUSH Q5M PRN PRN Reason: Excessive sedation or RR < 8 Nystatin (Nystatin Powder 15 Gm Bottle) 1 appl TOPICAL BID REPLACED BY [facility]; Protocol Last Admin: 04/02/25 08:33 Dose: 1 appl Documented By: DEONNA Omeprazole (Omeprazole/Na Bicarb Oral Susp 20 Mg/10 Ml Ud Cup) 20 mg G-TUBE DAILY@0630 REPLACED BY [facility] Last Admin: 04/02/25 05:54 Dose: 20 mg Documented By: ANDRADE Perphenazine (Perphenazine 2 Mg Tablet) 2 mg PO BID REPLACED BY [facility] Last Admin: 04/02/25 08:32 Dose: 2 mg Documented By: DEONNA Perphenazine (Perphenazine 4 Mg Tablet) 4 mg PO BID REPLACED BY [facility] Last Admin: 04/02/25 08:32 Dose: 4 mg Documented By: DEONNA Senna (Sennosides 8.6 Mg Tablet) 8.6 mg PO DAILY REPLACED BY [facility] Last Admin: 04/02/25 08:32 Dose: 8.6 mg Documented By: DEONNA Sodium Biphosphate/Sodium Phosphate (Sodium Phosphate,[place]-Dibasic 133 Ml Enema) 133 ml [place] DAILY PRN PRN Reason: Constipation Last Admin: 03/11/25 12:18 Dose: 133 ml Documented By: STEPHANE Sodium Chloride (0.9 % Sodium Chloride Flush 3 Ml Syringe) 3 ml IVFLUSH QSHIFT REPLACED BY [facility] Last Admin: 04/02/25 07:41 Dose: Not Given Documented By: DEONNA Non-Admin Reason: Patient Asleep Trazodone HCl (Trazodone Hcl 50 Mg Tablet) 50 mg PO BEDTIME MRX1 PRN PRN Reason: Insomnia Last Admin: 03/20/25 21:26 Dose: 50 mg Documented By: RAMIRO Labs 03/25/25 09:38 04/01/25 08:23 Labs: Laboratory Results - last 24 hr 04/01/25 04/01/25 04/02/25 16:32 19:53 07:25 POC Glucose 128 H 189 H 143 H 04/02/25 11:33 POC Glucose 203 H Assessment and Plan (1) Fall: Status: Acute (2) Alzheimer's dementia: Status: Acute (3) Schizoaffective disorder: Status: Acute Plan 69-year-old male with a history of schizoaffective disorder (with psychotic features), major depressive disorder, diabetes, and GERD presented to the ED on 02/14/2025 after multiple falls. He was admitted for acute multifactorial encephalopathy, which was complicated by acute hypoxic respiratory failure secondary to aspiration pneumonia on 02/16/2025. Essentially no new issues, reamins confused at baseline Acute toxic/metabolic encephalopathyAcute hypoxic respiratory failure d/t Aspiration pneumonia Completed IV Unasyn; blood cultures negative. Weaned off supplemental oxygen, currently maintaining goal saturation of 95%. Aspiration precautions in place. Dysphagia: Evaluated by speech and swallow; recommended nectar-thickened liquids. Initially had poor oral intake and required TPN. Underwent G-tube placement on 03/02/2025. Tube feeds are being held while he is able to eat orally. Currently tolerating oral intake with NDD2 diet and nectar-thickened liquids. Psychiatric History: Schizoaffective disorder with psychotic features: Intermittent refusal of psychiatric medications and vital sign monitoring. Continue current regimen: fluoxetine, perphenazine (Trilafon), valproic acid (Depakote), clozapine (Clozaril), and valium. Psych follow-up as needed. Other Medical Issues: Diabetes, uncontrolled: continue Lantus 30 units; continue sliding scale insulin. Hypertension: No current management; blood pressure within normal limits. Summary: Patient is recovering from aspiration pneumonia and acute encephalopathy, now tolerating oral intake with dietary modifications. Psychiatric and medical management ongoing and need placement Routine labs 03/25/25 cbc, bmp unremarkable [facility] - VTE: Enoxaparin - CODE STATUS: Full code - DIET: NDD2 and [place] thick - DISPOSITION: Pending placement Quality Stroke Does the patient have a stroke diagnosis?: No VTE Prior VTE?: No VTE Risk Level:: Medical - moderate - high VTE Device Contraindication: Treatment Not Indicated VTE Drug Contraindication: N/A - Med Ordered
[2025-04-02] MEDS: 0.9 % Sodium Chloride Flush 3 ML SYRINGE IVFLUSH ×2 (15:13→21:09)
[2025-04-02 15:18] VITALS: BP 133/64; PULSE 74; RESP 16; TEMP 36.6; O2SAT 98
--- NOTE | 2025-04-02 17:25 | PC.NURSE ---
Pt refused 1630 POC - MD alerted.
[2025-04-02 20:00] VITALS: BP 157/72; PULSE 72; RESP 18; TEMP 35.9; O2SAT 99
[2025-04-02 20:58] LABS: Glucose, Whole Blood 154 mg/dL (60-115)
[2025-04-03 03:03] VITALS: BP 160/70; PULSE 70; RESP 18; TEMP 36.1; O2SAT 97
[2025-04-03] MEDS: Omeprazole/Na Bicarb Oral Susp 20 MG/10 ML UD Cup G-TUBE (06:07)
--- NOTE | 2025-04-03 07:31 | P.PNIM_ITS ---
Subjective Subjective Date of Service: 04/03/25 Interval History: no new events Review of Systems Review of Systems: Yes all other systems are reviewed and are negative Physical Exam 2 Exam: Exam: General: Alert but confused at baseline, no acute distress Resp: CTA bilateral CVS: S1,S2,RRR GI: +BS, NT, no distention Skin: No rash Neuro: motor grossly intact Psych: appropriate affect Vital Signs: Vital Signs: Last Vital Signs Temp 96.9 F 04/03/25 03:03 Pulse 70 04/03/25 03:03 Resp 18 04/03/25 03:03 BP 160/70 H 04/03/25 03:03 Pulse Ox 97 04/03/25 03:03 O2 Del Method Room Air 04/03/25 03:03 O2 Flow Rate 3 03/07/25 23:35 BMI result Body Mass Index 23.3 Objective Data Active Medications Acetaminophen (Acetaminophen 325 Mg Tablet) 650 mg PO Q6H PRN PRN Reason: Headache/Pain, Scale 1-10 Al Hydroxide/Mg Hydroxide (Magnesium Hydrox/Alum Hydrox 30 Ml Oral.Susp) 30 ml PO Q6H PRN PRN Reason: Heartburn/Nausea Last Admin: 03/20/25 15:11 Dose: 30 ml Documented By: KERRI Calcium Carbonate (Calcium Carbonate 750 Mg Tab.Chew) 750 mg PO Q4H PRN PRN Reason: Heartburn Clozapine (Clozapine 25 Mg Tablet) 50 mg PO TID [facility] Last Admin: 04/02/25 20:53 Dose: 50 mg Documented By: ANDRADE Dextrose (Dextrose 50 % 25 Gm/50 Ml Syringe) 25 gm IVPUSH Q15M PRN; Protocol PRN Reason: per Hypoglycemia Standing Ord. Docusate Sodium (Docusate Sodium 100 Mg/10 Ml Liquid) 100 mg G-TUBE BID [facility] Last Admin: 04/02/25 20:53 Dose: 100 mg Documented By: ANDRADE Enoxaparin Sodium (Enoxaparin Sodium 40 Mg/0.4 Ml Syringe) 40 mg SUBCUT Q24H [facility] Last Admin: 04/02/25 08:32 Dose: 40 mg Documented By: DEONNA Fluoxetine HCl (Fluoxetine Hcl 20 Mg Capsule) 40 mg PO BEDTIME NATE On Hold: 02/22/25 14:23 Last Admin: 02/21/25 22:23 Dose: Not Given Documented By: HO.MASEREN Non-Admin Reason: pt refused Glucagon (Glucagon Hcl 1 Mg Vial) 1 mg IM Q20M PRN PRN Reason: low BG Glucose (Glucose Gel 15 Gm Gel..Gram.) 15 gm PO Q15M PRN; Protocol PRN Reason: per Hypoglycemia Standing Ord. Hydralazine HCl (Hydralazine Hcl 20 Mg/Ml Vial) 5 mg IVPUSH Q6H PRN; Protocol PRN Reason: htn Last Admin: 02/23/25 17:30 Dose: 5 mg Documented By: JAYME Valproic Acid 500 mg/ Dextrose 55 mls @ 52.506 mls/hr IV Q12H [facility] Last Infusion: 04/02/25 22:21 Dose: Infused Documented By: ANDRADE Insulin Glargine (Insulin Glargine,Hum.Rec.Anlog 100 Unit/Ml 10 Ml Vial) 30 unit SUBCUT DAILY NATE On Hold: 03/14/25 09:00 Insulin Human Lispro (Insulin Lispro 100 Unit/Ml 3 Ml Vial) 0 unit SUBCUT QIDACHS [facility]; Protocol Last Admin: 04/02/25 21:06 Dose: 2 unit Documented By: ANDRADE Magnesium Hydroxide (Milk Of Magnesia 30 Ml Oral.Susp) 30 ml PO DAILY PRN PRN Reason: Constipation Melatonin (Melatonin 3 Mg Tablet) 6 mg PO BEDTIME PRN PRN Reason: Insomnia Last Admin: 03/31/25 20:37 Dose: 6 mg Documented By: SHINE Metoprolol Tartrate (Metoprolol Tartrate 12.5 Mg Halftab) 12.5 mg PO BID [facility]; Protocol Last Admin: 04/02/25 20:53 Dose: 12.5 mg Documented By: ANDRADE Naloxone HCl (Naloxone Hcl 0.4 Mg/Ml Vial) 0.04 mg IVPUSH Q5M PRN PRN Reason: Excessive sedation or RR < 8 Nystatin (Nystatin Powder 15 Gm Bottle) 1 appl TOPICAL BID [facility]; Protocol Last Admin: 04/02/25 21:00 Dose: 1 appl Documented By: ANDRADE Omeprazole (Omeprazole/Na Bicarb Oral Susp 20 Mg/10 Ml Ud Cup) 20 mg G-TUBE DAILY@0630 [facility] Last Admin: 04/03/25 06:07 Dose: 20 mg Documented By: ANDRADE Perphenazine (Perphenazine 2 Mg Tablet) 2 mg PO BID [facility] Last Admin: 04/02/25 20:53 Dose: 2 mg Documented By: ANDRADE Perphenazine (Perphenazine 4 Mg Tablet) 4 mg PO BID [facility] Last Admin: 04/02/25 20:53 Dose: 4 mg Documented By: ANDRADE Senna (Sennosides 8.6 Mg Tablet) 8.6 mg PO DAILY [facility] Last Admin: 04/02/25 08:32 Dose: 8.6 mg Documented By: DEONNA Sodium Biphosphate/Sodium Phosphate (Sodium Phosphate,[place]-Dibasic 133 Ml Enema) 133 ml [place] DAILY PRN PRN Reason: Constipation Last Admin: 03/11/25 12:18 Dose: 133 ml Documented By: STEPHANE Sodium Chloride (0.9 % Sodium Chloride Flush 3 Ml Syringe) 3 ml IVFLUSH QSHIFT [facility] Last Admin: 04/02/25 21:09 Dose: 3 ml Documented By: ANDRADE Trazodone HCl (Trazodone Hcl 50 Mg Tablet) 50 mg PO BEDTIME MRX1 PRN PRN Reason: Insomnia Last Admin: 03/20/25 21:26 Dose: 50 mg Documented By: RAMIRO Labs 03/25/25 09:38 04/01/25 08:23 Labs: Laboratory Results - last 24 hr 04/02/25 04/02/25 04/02/25 07:25 11:33 20:49 POC Glucose 143 H 203 H 154 H Assessment and Plan (1) Fall: Status: Acute (2) Alzheimer's dementia: Status: Acute (3) Schizoaffective disorder: Status: Acute Plan 69-year-old male with a history of schizoaffective disorder (with psychotic features), major depressive disorder, diabetes, and GERD presented to the ED on 02/14/2025 after multiple falls. He was admitted for acute multifactorial encephalopathy, which was complicated by acute hypoxic respiratory failure secondary to aspiration pneumonia on 02/16/2025. Essentially no new issues, reamins confused at baseline Acute toxic/metabolic encephalopathyAcute hypoxic respiratory failure d/t Aspiration pneumonia Completed IV Unasyn; blood cultures negative. Weaned off supplemental oxygen, currently maintaining goal saturation of 95%. Aspiration precautions in place. Dysphagia: Evaluated by speech and swallow; recommended nectar-thickened liquids. Initially had poor oral intake and required TPN. Underwent G-tube placement on 03/02/2025. Tube feeds are being held while he is able to eat orally. Currently tolerating oral intake with NDD2 diet and nectar-thickened liquids. Psychiatric History: Schizoaffective disorder with psychotic features: Intermittent refusal of psychiatric medications and vital sign monitoring. Continue current regimen: fluoxetine, perphenazine (Trilafon), valproic acid (Depakote), clozapine (Clozaril), and valium. Psych follow-up as needed. Other Medical Issues: Diabetes, uncontrolled: continue Lantus 30 units; continue sliding scale insulin. Hypertension: No current management; blood pressure within normal limits. Summary: Patient is recovering from aspiration pneumonia and acute encephalopathy, now tolerating oral intake with dietary modifications. Psychiatric and medical management ongoing and need placement Routine labs 03/25/25 cbc, bmp unremarkable [facility] - VTE: Enoxaparin - CODE STATUS: Full code - DIET: NDD2 and [place] thick - DISPOSITION: Pending placement Quality Stroke Does the patient have a stroke diagnosis?: No VTE Prior VTE?: No VTE Risk Level:: Medical - moderate - high VTE Device Contraindication: Treatment Not Indicated VTE Drug Contraindication: N/A - Med Ordered
[2025-04-03 07:40] LABS: Neut%MD 41.4 %; WBCANC 5.8 X10*3/uL
[2025-04-03 07:53] LABS: Glucose, Whole Blood 151 mg/dL (60-115)
[2025-04-03 08:00] VITALS: BP 110/69; PULSE 63; RESP 18; TEMP 36.1; O2SAT 97
[2025-04-03] MEDS: Metoprolol Tartrate 12.5 MG HALFTAB PO ×2 (08:25→22:02)
[2025-04-03 11:43] LABS: Glucose, Whole Blood 169 mg/dL (60-115)
--- NOTE | 2025-04-03 12:54 | MHC.CM.PN ---
EMR REVIEWED. PT REMAINS MEDICALLY CLEARED AND AWAITING MH FOR LTC TO BE IN PLACE. NO BED OFFERS AT THIS TIME. CM WILL CONTINUE TO FOLLOW FOR DC PLAN.
[2025-04-03 15:59] VITALS: BP 143/62; PULSE 77; RESP 18; TEMP 36.2; O2SAT 98
[2025-04-03 16:46] LABS: Glucose, Whole Blood 187 mg/dL (60-115)
[2025-04-03 20:00] VITALS: BP 146/69; PULSE 63; RESP 18; TEMP 36.1; O2SAT 98
[2025-04-03 21:01] LABS: Glucose, Whole Blood 197 mg/dL (60-115)
[2025-04-03] MEDS: Milk of Magnesia 30 ML ORAL.SUSP PO (22:06)
[2025-04-04 03:26] VITALS: BP 148/60; PULSE 57; RESP 18; TEMP 35.9; O2SAT 96
[2025-04-04] MEDS: Omeprazole/Na Bicarb Oral Susp 20 MG/10 ML UD Cup G-TUBE (05:45)
--- NOTE | 2025-04-04 07:43 | HO.PM.IMPN ---
Subjective Subjective Date of Service: 04/04/25 Interval History: no new events Review of Systems Review of Systems: Yes all other systems are reviewed and are negative Physical Exam Exam: Exam: General: Alert but confused at baseline, no acute distress Resp: CTA bilateral CVS: S1,S2,RRR GI: +BS, NT, no distention Skin: No rash Neuro: motor grossly intact Psych: appropriate affect Vital Signs: Vital Signs: Last Vital Signs Temp 96.6 F L 04/04/25 03:26 Pulse 57 04/04/25 03:26 Resp 18 04/04/25 03:26 BP 148/60 H 04/04/25 03:26 Pulse Ox 96 04/04/25 03:26 O2 Del Method Room Air 04/04/25 03:26 O2 Flow Rate 3 03/07/25 23:35 BMI result Body Mass Index 23.3 Objective Data Active Medications Acetaminophen (Acetaminophen 325 Mg Tablet) 650 mg PO Q6H PRN PRN Reason: Headache/Pain, Scale 1-10 Al Hydroxide/Mg Hydroxide (Magnesium Hydrox/Alum Hydrox 30 Ml Oral.Susp) 30 ml PO Q6H PRN PRN Reason: Heartburn/Nausea Last Admin: 03/20/25 15:11 Dose: 30 ml Documented By: GRAZMELISSA Calcium Carbonate (Calcium Carbonate 750 Mg Tab.Chew) 750 mg PO Q4H PRN PRN Reason: Heartburn Clozapine (Clozapine 25 Mg Tablet) 50 mg PO TID [facility] Last Admin: 04/03/25 22:03 Dose: 50 mg Documented By: CAROLINA Dextrose (Dextrose 50 % 25 Gm/50 Ml Syringe) 25 gm IVPUSH Q15M PRN; Protocol PRN Reason: per Hypoglycemia Standing Ord. Docusate Sodium (Docusate Sodium 100 Mg/10 Ml Liquid) 100 mg G-TUBE BID [facility] Last Admin: 04/03/25 22:25 Dose: 100 mg Documented By: CAROLINA Enoxaparin Sodium (Enoxaparin Sodium 40 Mg/0.4 Ml Syringe) 40 mg SUBCUT Q24H [facility] Last Admin: 04/03/25 09:53 Dose: 40 mg Documented By: HEATHER Fluoxetine HCl (Fluoxetine Hcl 20 Mg Capsule) 40 mg PO BEDTIME NATE On Hold: 02/22/25 14:23 Last Admin: 02/21/25 22:23 Dose: Not Given Documented By: PAPITO Non-Admin Reason: pt refused Glucagon (Glucagon Hcl 1 Mg Vial) 1 mg IM Q20M PRN PRN Reason: low BG Glucose (Glucose Gel 15 Gm Gel..Gram.) 15 gm PO Q15M PRN; Protocol PRN Reason: per Hypoglycemia Standing Ord. Hydralazine HCl (Hydralazine Hcl 20 Mg/Ml Vial) 5 mg IVPUSH Q6H PRN; Protocol PRN Reason: htn Last Admin: 02/23/25 17:30 Dose: 5 mg Documented By: JAYME Insulin Glargine (Insulin Glargine,Hum.Rec.Anlog 100 Unit/Ml 10 Ml Vial) 30 unit SUBCUT DAILY [facility] On Hold: 03/14/25 09:00 Insulin Human Lispro (Insulin Lispro 100 Unit/Ml 3 Ml Vial) 0 unit SUBCUT QIDACHS [facility]; Protocol Last Admin: 04/03/25 22:00 Dose: 2 unit Documented By: CAROLINA Magnesium Hydroxide (Milk Of Magnesia 30 Ml Oral.Susp) 30 ml PO DAILY PRN PRN Reason: Constipation Last Admin: 04/03/25 22:06 Dose: 30 ml Documented By: CAROLINA Melatonin (Melatonin 3 Mg Tablet) 6 mg PO BEDTIME PRN PRN Reason: Insomnia Last Admin: 04/03/25 22:06 Dose: 6 mg Documented By: CAROLINA Metoprolol Tartrate (Metoprolol Tartrate 12.5 Mg Halftab) 12.5 mg PO BID [facility]; Protocol Last Admin: 04/03/25 22:02 Dose: 12.5 mg Documented By: CAROLINA Naloxone HCl (Naloxone Hcl 0.4 Mg/Ml Vial) 0.04 mg IVPUSH Q5M PRN PRN Reason: Excessive sedation or RR < 8 Nystatin (Nystatin Powder 15 Gm Bottle) 1 appl TOPICAL BID [facility]; Protocol Last Admin: 04/03/25 22:25 Dose: Not Given Documented By: CAROLINA Non-Admin Reason: Patient Refused Omeprazole (Omeprazole/Na Bicarb Oral Susp 20 Mg/10 Ml Ud Cup) 20 mg G-TUBE DAILY@0630 [facility] Last Admin: 04/04/25 05:45 Dose: 20 mg Documented By: CAROLINA Perphenazine (Perphenazine 2 Mg Tablet) 2 mg PO BID [facility] Last Admin: 04/03/25 22:03 Dose: 2 mg Documented By: CAROLINA Perphenazine (Perphenazine 4 Mg Tablet) 4 mg PO BID [facility] Last Admin: 04/03/25 22:02 Dose: 4 mg Documented By: CAROLINA Senna (Sennosides 8.6 Mg Tablet) 8.6 mg PO DAILY [facility] Last Admin: 04/03/25 08:25 Dose: 8.6 mg Documented By: HEATHER Sodium Biphosphate/Sodium Phosphate (Sodium Phosphate,[place]-Dibasic 133 Ml Enema) 133 ml [place] DAILY PRN PRN Reason: Constipation Last Admin: 03/11/25 12:18 Dose: 133 ml Documented By: STEPHANE Sodium Chloride (0.9 % Sodium Chloride Flush 3 Ml Syringe) 3 ml IVFLUSH QSHIFT [facility] Last Admin: 04/04/25 00:00 Dose: 3 ml Documented By: CAROLINA Trazodone HCl (Trazodone Hcl 50 Mg Tablet) 50 mg PO BEDTIME MRX1 PRN PRN Reason: Insomnia Last Admin: 03/20/25 21:26 Dose: 50 mg Documented By: RAMIRO Valproic Acid (Valproic Acid 250 Mg Capsule) 500 mg PO BID [facility] Last Admin: 04/03/25 22:25 Dose: 500 mg Documented By: CAROLINA Labs 03/25/25 09:38 04/01/25 08:23 Labs: Laboratory Results - last 24 hr 04/03/25 04/03/25 04/03/25 07:38 11:35 16:39 POC Glucose 151 H 169 H 187 H 04/03/25 20:54 POC Glucose 197 H Assessment and Plan (1) Fall: Status: Acute (2) Alzheimer's dementia: Status: Acute (3) Schizoaffective disorder: Status: Acute Plan 69-year-old male with a history of schizoaffective disorder (with psychotic features), major depressive disorder, diabetes, and GERD presented to the ED on 02/14/2025 after multiple falls. He was admitted for acute multifactorial encephalopathy, which was complicated by acute hypoxic respiratory failure secondary to aspiration pneumonia on 02/16/2025. Essentially no new issues, reamins confused at baseline Acute toxic/metabolic encephalopathyAcute hypoxic respiratory failure d/t Aspiration pneumonia Completed IV Unasyn; blood cultures negative. Weaned off supplemental oxygen, currently maintaining goal saturation of 95%. Aspiration precautions in place. Dysphagia: Evaluated by speech and swallow; recommended nectar-thickened liquids. Initially had poor oral intake and required TPN. Underwent G-tube placement on 03/02/2025. Tube feeds are being held while he is able to eat orally. Currently tolerating oral intake with NDD2 diet and nectar-thickened liquids. Psychiatric History: Schizoaffective disorder with psychotic features: Intermittent refusal of psychiatric medications and vital sign monitoring. Continue current regimen: fluoxetine, perphenazine (Trilafon), valproic acid (Depakote), clozapine (Clozaril), and valium. Psych follow-up as needed. Other Medical Issues: Diabetes, uncontrolled: continue Lantus 30 units; continue sliding scale insulin. Hypertension: No current management; blood pressure within normal limits. Summary: Patient is recovering from aspiration pneumonia and acute encephalopathy, now tolerating oral intake with dietary modifications. Psychiatric and medical management ongoing and need placement Routine labs 03/25/25 cbc, bmp unremarkable [facility] - VTE: Enoxaparin - CODE STATUS: Full code - DIET: NDD2 and [place] thick - DISPOSITION: Pending placement Quality Stroke Does the patient have a stroke diagnosis?: No VTE Prior VTE?: No VTE Risk Level:: Medical - moderate - high VTE Device Contraindication: Treatment Not Indicated VTE Drug Contraindication: N/A - Med Ordered
[2025-04-04 08:00] VITALS: BP 132/60; PULSE 72; RESP 16; TEMP 36.1; O2SAT 98
[2025-04-04] MEDS: 0.9 % Sodium Chloride Flush 3 ML SYRINGE IVFLUSH ×4 (08:31→21:07)
[2025-04-04] MEDS: Metoprolol Tartrate 12.5 MG HALFTAB PO ×2 (08:31→21:00)
[2025-04-04 08:42] LABS: Glucose, Whole Blood 161 mg/dL (60-115)
[2025-04-04 11:31] LABS: Glucose, Whole Blood 204 mg/dL (60-115)
[2025-04-04 15:18] VITALS: BP 122/71; PULSE 66; RESP 18; TEMP 36.4; O2SAT 99
[2025-04-04 16:06] LABS: Glucose, Whole Blood 148 mg/dL (60-115)
[2025-04-04 20:00] VITALS: BP 158/73; PULSE 75; RESP 18; TEMP 36.1; O2SAT 99
[2025-04-04 21:02] LABS: Glucose, Whole Blood 173 mg/dL (60-115)
[2025-04-05 03:56] VITALS: BP 147/65; PULSE 60; RESP 18; TEMP 35.8; O2SAT 100
[2025-04-05] MEDS: Omeprazole/Na Bicarb Oral Susp 20 MG/10 ML UD Cup G-TUBE (06:24)
[2025-04-05 07:45] VITALS: BP 149/71; PULSE 65; RESP 16; TEMP 36.2; O2SAT 100
--- NOTE | 2025-04-05 07:46 | HO.PM.IMPN ---
Subjective Subjective Date of Service: 04/05/25 Interval History: awake, no new events Review of Systems Review of Systems: Yes all other systems are reviewed and are negative Physical Exam Vital Signs: Vital Signs: Last Vital Signs Temp 96.4 F L 04/05/25 03:56 Pulse 60 04/05/25 03:56 Resp 18 04/05/25 03:56 BP 147/65 H 04/05/25 03:56 Pulse Ox 100 04/05/25 03:56 O2 Del Method Room Air 04/05/25 03:56 O2 Flow Rate 3 03/07/25 23:35 BMI result Body Mass Index 23.3 General: Alert but confused at baseline, no acute distress Resp: CTA bilateral CVS: S1,S2,RRR GI: +BS, NT, no distention Skin: No rash Neuro: motor grossly intact Psych: appropriate affect Objective Data Active Medications Acetaminophen (Acetaminophen 325 Mg Tablet) 650 mg PO Q6H PRN PRN Reason: Headache/Pain, Scale 1-10 Al Hydroxide/Mg Hydroxide (Magnesium Hydrox/Alum Hydrox 30 Ml Oral.Susp) 30 ml PO Q6H PRN PRN Reason: Heartburn/Nausea Last Admin: 03/20/25 15:11 Dose: 30 ml Documented By: GRAZMELISSA Calcium Carbonate (Calcium Carbonate 750 Mg Tab.Chew) 750 mg PO Q4H PRN PRN Reason: Heartburn Clozapine (Clozapine 25 Mg Tablet) 50 mg PO TID [facility] Last Admin: 04/04/25 21:03 Dose: 50 mg Documented By: GEORGE Dextrose (Dextrose 50 % 25 Gm/50 Ml Syringe) 25 gm IVPUSH Q15M PRN; Protocol PRN Reason: per Hypoglycemia Standing Ord. Docusate Sodium (Docusate Sodium 100 Mg/10 Ml Liquid) 100 mg G-TUBE BID [facility] Last Admin: 04/04/25 21:03 Dose: Not Given Documented By: GEORGE Non-Admin Reason: Patient Refused Enoxaparin Sodium (Enoxaparin Sodium 40 Mg/0.4 Ml Syringe) 40 mg SUBCUT Q24H [facility] Last Admin: 04/04/25 08:32 Dose: 40 mg Documented By: HOLLIE Fluoxetine HCl (Fluoxetine Hcl 20 Mg Capsule) 40 mg PO BEDTIME [facility] On Hold: 02/22/25 14:23 Last Admin: 02/21/25 22:23 Dose: Not Given Documented By: PAPITO Non-Admin Reason: pt refused Glucagon (Glucagon Hcl 1 Mg Vial) 1 mg IM Q20M PRN PRN Reason: low BG Glucose (Glucose Gel 15 Gm Gel..Gram.) 15 gm PO Q15M PRN; Protocol PRN Reason: per Hypoglycemia Standing Ord. Hydralazine HCl (Hydralazine Hcl 20 Mg/Ml Vial) 5 mg IVPUSH Q6H PRN; Protocol PRN Reason: htn Last Admin: 02/23/25 17:30 Dose: 5 mg Documented By: JAYME Insulin Glargine (Insulin Glargine,Hum.Rec.Anlog 100 Unit/Ml 10 Ml Vial) 30 unit SUBCUT DAILY NATE On Hold: 03/14/25 09:00 Insulin Human Lispro (Insulin Lispro 100 Unit/Ml 3 Ml Vial) 0 unit SUBCUT QIDACHS [facility]; Protocol Last Admin: 04/04/25 21:11 Dose: 2 unit Documented By: GEORGE Magnesium Hydroxide (Milk Of Magnesia 30 Ml Oral.Susp) 30 ml PO DAILY PRN PRN Reason: Constipation Last Admin: 04/03/25 22:06 Dose: 30 ml Documented By: CAROLINA Melatonin (Melatonin 3 Mg Tablet) 6 mg PO BEDTIME PRN PRN Reason: Insomnia Last Admin: 04/03/25 22:06 Dose: 6 mg Documented By: CAROLINA Metoprolol Tartrate (Metoprolol Tartrate 12.5 Mg Halftab) 12.5 mg PO BID [facility]; Protocol Last Admin: 04/04/25 21:00 Dose: 12.5 mg Documented By: GEORGE Naloxone HCl (Naloxone Hcl 0.4 Mg/Ml Vial) 0.04 mg IVPUSH Q5M PRN PRN Reason: Excessive sedation or RR < 8 Nystatin (Nystatin Powder 15 Gm Bottle) 1 appl TOPICAL BID [facility]; Protocol Last Admin: 04/04/25 21:02 Dose: Not Given Documented By: GEORGE Non-Admin Reason: Patient Refused Omeprazole (Omeprazole/Na Bicarb Oral Susp 20 Mg/10 Ml Ud Cup) 20 mg G-TUBE DAILY@0630 [facility] Last Admin: 04/05/25 06:24 Dose: 20 mg Documented By: GEORGE Perphenazine (Perphenazine 2 Mg Tablet) 2 mg PO BID [facility] Last Admin: 04/04/25 21:02 Dose: 2 mg Documented By: GEORGE Perphenazine (Perphenazine 4 Mg Tablet) 4 mg PO BID [facility] Last Admin: 04/04/25 21:00 Dose: 4 mg Documented By: GEORGE Senna (Sennosides 8.6 Mg Tablet) 8.6 mg PO DAILY [facility] Last Admin: 04/04/25 08:30 Dose: 8.6 mg Documented By: HOLLIE Sodium Biphosphate/Sodium Phosphate (Sodium Phosphate,[place]-Dibasic 133 Ml Enema) 133 ml [place] DAILY PRN PRN Reason: Constipation Last Admin: 03/11/25 12:18 Dose: 133 ml Documented By: STEPHANE Sodium Chloride (0.9 % Sodium Chloride Flush 3 Ml Syringe) 3 ml IVFLUSH QSHIFT [facility] Last Admin: 04/04/25 21:07 Dose: 3 ml Documented By: GEORGE Trazodone HCl (Trazodone Hcl 50 Mg Tablet) 50 mg PO BEDTIME MRX1 PRN PRN Reason: Insomnia Last Admin: 03/20/25 21:26 Dose: 50 mg Documented By: RAMIRO Valproic Acid (Valproic Acid 250 Mg Capsule) 500 mg PO BID [facility] Last Admin: 04/04/25 21:02 Dose: 500 mg Documented By: GEORGE Labs 03/25/25 09:38 04/01/25 08:23 Labs: Laboratory Results - last 24 hr 04/04/25 04/04/25 04/04/25 11:26 15:58 20:54 POC Glucose 204 H 148 H 173 H Assessment and Plan (1) Fall: Status: Acute (2) Alzheimer's dementia: Status: Acute (3) Schizoaffective disorder: Status: Acute Plan 69-year-old male with a history of schizoaffective disorder (with psychotic features), major depressive disorder, diabetes, and GERD presented to the ED on 02/14/2025 after multiple falls. He was admitted for acute multifactorial encephalopathy, which was complicated by acute hypoxic respiratory failure secondary to aspiration pneumonia on 02/16/2025. Essentially no new issues, reamins confused at baseline Acute toxic/metabolic encephalopathyAcute hypoxic respiratory failure d/t Aspiration pneumonia Completed IV Unasyn; blood cultures negative. Weaned off supplemental oxygen, currently maintaining goal saturation of 95%. Aspiration precautions in place. Dysphagia: Evaluated by speech and swallow; recommended nectar-thickened liquids. Initially had poor oral intake and required TPN. Underwent G-tube placement on 03/02/2025. Tube feeds are being held while he is able to eat orally. Currently tolerating oral intake with NDD2 diet and nectar-thickened liquids. Psychiatric History: Schizoaffective disorder with psychotic features: Intermittent refusal of psychiatric medications and vital sign monitoring. Continue current regimen: fluoxetine, perphenazine (Trilafon), valproic acid (Depakote), clozapine (Clozaril), and valium. Psych follow-up as needed. Other Medical Issues: Diabetes, uncontrolled: continue Lantus 30 units; continue sliding scale insulin. Hypertension: No current management; blood pressure within normal limits. Summary: Patient is recovering from aspiration pneumonia and acute encephalopathy, now tolerating oral intake with dietary modifications. Psychiatric and medical management ongoing and need placement Routine labs 03/25/25 cbc, bmp unremarkable [facility] - VTE: Enoxaparin - CODE STATUS: Full code - DIET: NDD2 and [place] thick - DISPOSITION: Pending placement Quality Stroke Does the patient have a stroke diagnosis?: No VTE Prior VTE?: No VTE Risk Level:: Medical - moderate - high VTE Device Contraindication: Treatment Not Indicated VTE Drug Contraindication: N/A - Med Ordered
[2025-04-05 07:52] LABS: Glucose, Whole Blood 111 mg/dL (60-115)
[2025-04-05] MEDS: Metoprolol Tartrate 12.5 MG HALFTAB PO ×2 (08:27→20:38)
[2025-04-05] MEDS: 0.9 % Sodium Chloride Flush 3 ML SYRINGE IVFLUSH ×2 (08:28→14:39)
[2025-04-05 12:30] LABS: Glucose, Whole Blood 146 mg/dL (60-115)
[2025-04-05 15:30] VITALS: BP 119/60; PULSE 67; RESP 18; TEMP 36.4; O2SAT 98
[2025-04-05 15:59] LABS: Glucose, Whole Blood 221 mg/dL (60-115)
[2025-04-05 19:30] VITALS: BP 125/62; PULSE 77; RESP 15; TEMP 36.3; O2SAT 99
[2025-04-05 21:13] LABS: Glucose, Whole Blood 151 mg/dL (60-115)
[2025-04-06 03:27] VITALS: BP 130/67; PULSE 64; RESP 16; TEMP 36.7; O2SAT 97
[2025-04-06 07:26] VITALS: BP 151/70; PULSE 68; RESP 16; TEMP 36.7; O2SAT 99
[2025-04-06 07:56] LABS: Glucose, Whole Blood 118 mg/dL (60-115)
[2025-04-06] MEDS: Metoprolol Tartrate 12.5 MG HALFTAB PO ×2 (09:00→20:14)
--- NOTE | 2025-04-06 10:27 | MHC.CM.PN ---
PT STILL WAITING FOR A LTC BED OFFER, REFERRAL HAS BEEN BROADCASTED, NO BED OFFERS. [facility] REFERRAL EXPANDED REFERRAL ALSO FAXED TO [facility] (F: [phone]). [facility] LIAISON: [place] [phone] X [phone]
[2025-04-06 11:53] LABS: Glucose, Whole Blood 183 mg/dL (60-115)
--- NOTE | 2025-04-06 12:10 | P.PNIM_ITS ---
Subjective Subjective Date of Service: 04/06/25 Interval History: seems comfortable,No new events overnight. Review of Systems Review of Systems: Yes all other systems are reviewed and are negative Physical Exam 2 Exam: Exam: General: Alert but confused at baseline, no acute distress Resp: CTA bilateral CVS: S1,S2,RRR GI: +BS, NT, no distention Skin: No rash Neuro: motor grossly intact Psych: appropriate affect Vital Signs: Vital Signs: Last Vital Signs Temp 98.0 F 04/06/25 07:26 Pulse 68 04/06/25 07:26 Resp 16 04/06/25 07:26 BP 151/70 H 04/06/25 07:26 Pulse Ox 99 04/06/25 07:26 O2 Del Method Room Air 04/06/25 07:26 O2 Flow Rate 3 03/07/25 23:35 BMI result Body Mass Index 23.3 General: Alert but confused at baseline, no acute distress Resp: CTA bilateral CVS: S1,S2,RRR GI: +BS, NT, no distention Skin: No rash Neuro: motor grossly intact Psych: appropriate affect Objective Data Active Medications Acetaminophen (Acetaminophen 325 Mg Tablet) 650 mg PO Q6H PRN PRN Reason: Headache/Pain, Scale 1-10 Al Hydroxide/Mg Hydroxide (Magnesium Hydrox/Alum Hydrox 30 Ml Oral.Susp) 30 ml PO Q6H PRN PRN Reason: Heartburn/Nausea Last Admin: 03/20/25 15:11 Dose: 30 ml Documented By: KERRI Calcium Carbonate (Calcium Carbonate 750 Mg Tab.Chew) 750 mg PO Q4H PRN PRN Reason: Heartburn Clozapine (Clozapine 25 Mg Tablet) 50 mg PO TID [facility] Last Admin: 04/06/25 09:00 Dose: 50 mg Documented By: ANGIE Dextrose (Dextrose 50 % 25 Gm/50 Ml Syringe) 25 gm IVPUSH Q15M PRN; Protocol PRN Reason: per Hypoglycemia Standing Ord. Docusate Sodium (Docusate Sodium 100 Mg/10 Ml Liquid) 100 mg G-TUBE BID [facility] Last Admin: 04/06/25 09:06 Dose: Not Given Documented By: ANGIE Non-Admin Reason: Patient Refused Enoxaparin Sodium (Enoxaparin Sodium 40 Mg/0.4 Ml Syringe) 40 mg SUBCUT Q24H [facility] Last Admin: 04/06/25 09:05 Dose: Not Given Documented By: ANGIE Non-Admin Reason: Patient Refused Fluoxetine HCl (Fluoxetine Hcl 20 Mg Capsule) 40 mg PO BEDTIME NATE On Hold: 02/22/25 14:23 Last Admin: 02/21/25 22:23 Dose: Not Given Documented By: PAPITO Non-Admin Reason: pt refused Glucagon (Glucagon Hcl 1 Mg Vial) 1 mg IM Q20M PRN PRN Reason: low BG Glucose (Glucose Gel 15 Gm Gel..Gram.) 15 gm PO Q15M PRN; Protocol PRN Reason: per Hypoglycemia Standing Ord. Hydralazine HCl (Hydralazine Hcl 20 Mg/Ml Vial) 5 mg IVPUSH Q6H PRN; Protocol PRN Reason: htn Last Admin: 02/23/25 17:30 Dose: 5 mg Documented By: JAYME Insulin Glargine (Insulin Glargine,Hum.Rec.Anlog 100 Unit/Ml 10 Ml Vial) 30 unit SUBCUT DAILY NATE On Hold: 03/14/25 09:00 Insulin Human Lispro (Insulin Lispro 100 Unit/Ml 3 Ml Vial) 0 unit SUBCUT QIDACHS [facility]; Protocol Last Admin: 04/06/25 08:44 Dose: Not Given Documented By: ANGIE Non-Admin Reason: No Insulin Coverage Magnesium Hydroxide (Milk Of Magnesia 30 Ml Oral.Susp) 30 ml PO DAILY PRN PRN Reason: Constipation Last Admin: 04/03/25 22:06 Dose: 30 ml Documented By: CAROLINA Melatonin (Melatonin 3 Mg Tablet) 6 mg PO BEDTIME PRN PRN Reason: Insomnia Last Admin: 04/03/25 22:06 Dose: 6 mg Documented By: CAROLINA Metoprolol Tartrate (Metoprolol Tartrate 12.5 Mg Halftab) 12.5 mg PO BID NATE; Protocol Last Admin: 04/06/25 09:00 Dose: 12.5 mg Documented By: ANGIE Naloxone HCl (Naloxone Hcl 0.4 Mg/Ml Vial) 0.04 mg IVPUSH Q5M PRN PRN Reason: Excessive sedation or RR < 8 Nystatin (Nystatin Powder 15 Gm Bottle) 1 appl TOPICAL BID NATE; Protocol Last Admin: 04/06/25 09:06 Dose: Not Given Documented By: ANGIE Non-Admin Reason: Patient Refused Omeprazole (Omeprazole/Na Bicarb Oral Susp 20 Mg/10 Ml Ud Cup) 20 mg G-TUBE DAILY@0630 [facility] Last Admin: 04/06/25 05:56 Dose: Not Given Documented By: TY Non-Admin Reason: Patient Refused Perphenazine (Perphenazine 2 Mg Tablet) 2 mg PO BID [facility] Last Admin: 04/06/25 09:00 Dose: 2 mg Documented By: ANGIE Perphenazine (Perphenazine 4 Mg Tablet) 4 mg PO BID [facility] Last Admin: 04/06/25 09:00 Dose: 4 mg Documented By: ANGIE Senna (Sennosides 8.6 Mg Tablet) 8.6 mg PO DAILY [facility] Last Admin: 04/06/25 09:00 Dose: 8.6 mg Documented By: ANGIE Sodium Biphosphate/Sodium Phosphate (Sodium Phosphate,[place]-Dibasic 133 Ml Enema) 133 ml [place] DAILY PRN PRN Reason: Constipation Last Admin: 03/11/25 12:18 Dose: 133 ml Documented By: STEPHANE Sodium Chloride (0.9 % Sodium Chloride Flush 3 Ml Syringe) 3 ml IVFLUSH QSHIFT [facility] Last Admin: 04/06/25 09:09 Dose: Not Given Documented By: ANGIE Non-Admin Reason: Patient Refused Trazodone HCl (Trazodone Hcl 50 Mg Tablet) 50 mg PO BEDTIME MRX1 PRN PRN Reason: Insomnia Last Admin: 03/20/25 21:26 Dose: 50 mg Documented By: RAMIRO Valproic Acid (Valproic Acid 250 Mg Capsule) 500 mg PO BID [facility] Last Admin: 04/06/25 09:00 Dose: 500 mg Documented By: ANGIE Labs 03/25/25 09:38 04/01/25 08:23 Labs: Laboratory Results - last 24 hr 04/05/25 04/05/25 04/05/25 12:26 15:56 20:11 POC Glucose 146 H 221 H 151 H 04/06/25 04/06/25 07:43 11:20 POC Glucose 118 H 183 H Assessment and Plan (1) Fall: Status: Acute (2) Alzheimer's dementia: Status: Acute (3) Schizoaffective disorder: Status: Acute Plan 69-year-old male with a history of schizoaffective disorder (with psychotic features), major depressive disorder, diabetes, and GERD presented to the ED on 02/14/2025 after multiple falls. He was admitted for acute multifactorial encephalopathy, which was complicated by acute hypoxic respiratory failure secondary to aspiration pneumonia on 02/16/2025. Essentially no new issues, reamins confused at baseline Acute toxic/metabolic encephalopathyAcute hypoxic respiratory failure d/t Aspiration pneumonia Completed IV Unasyn; blood cultures negative. Weaned off supplemental oxygen, currently maintaining goal saturation of 95%. Aspiration precautions in place. Dysphagia: Evaluated by speech and swallow; recommended nectar-thickened liquids. Initially had poor oral intake and required TPN. Underwent G-tube placement on 03/02/2025. Tube feeds are being held while he is able to eat orally. Currently tolerating oral intake with NDD2 diet and nectar-thickened liquids. Psychiatric History: Schizoaffective disorder with psychotic features: Intermittent refusal of psychiatric medications and vital sign monitoring. Continue current regimen: fluoxetine, perphenazine (Trilafon), valproic acid (Depakote), clozapine (Clozaril), and valium. Psych follow-up as needed. Other Medical Issues: Diabetes, uncontrolled: continue Lantus 30 units; continue sliding scale insulin. Hypertension: No current management; blood pressure within normal limits. Summary: Patient is recovering from aspiration pneumonia and acute encephalopathy, now tolerating oral intake with dietary modifications. Psychiatric and medical management ongoing and need placement Routine labs 03/25/25 cbc, bmp unremarkable [facility] - VTE: Enoxaparin - CODE STATUS: Full code - DIET: NDD2 and [place] thick - DISPOSITION: Pending placement Quality Stroke Does the patient have a stroke diagnosis?: No VTE Prior VTE?: No VTE Risk Level:: Medical - moderate - high VTE Device Contraindication: Treatment Not Indicated VTE Drug Contraindication: N/A - Med Ordered
[2025-04-06 15:21] VITALS: BP 124/62; PULSE 72; RESP 18; TEMP 36.2; O2SAT 97
[2025-04-06] MEDS: 0.9 % Sodium Chloride Flush 3 ML SYRINGE IVFLUSH ×2 (15:39→23:50)
[2025-04-06 16:11] LABS: Glucose, Whole Blood 164 mg/dL (60-115)
[2025-04-06 19:34] VITALS: BP 137/65; PULSE 72; RESP 18; TEMP 36.4; O2SAT 97
[2025-04-06 20:14] LABS: Glucose, Whole Blood 201 mg/dL (60-115)
[2025-04-06] MEDS: Milk of Magnesia 30 ML ORAL.SUSP PO (23:46)
[2025-04-07 02:47] VITALS: BP 161/76; PULSE 69; RESP 17; TEMP 36.2; O2SAT 98
[2025-04-07] MEDS: Omeprazole/Na Bicarb Oral Susp 20 MG/10 ML UD Cup G-TUBE (05:21)
[2025-04-07 07:11] LABS: Glucose, Whole Blood 116 mg/dL (60-115)
[2025-04-07 07:14] VITALS: BP 158/71; PULSE 71; RESP 16; TEMP 36; O2SAT 100
[2025-04-07] MEDS: Metoprolol Tartrate 12.5 MG HALFTAB PO ×2 (07:33→19:38)
--- NOTE | 2025-04-07 07:40 | P.PNIM_ITS ---
Subjective Subjective Date of Service: 04/07/25 Interval History: seems comfortable,No new events overnight. Review of Systems Review of Systems: Yes all other systems are reviewed and are negative Physical Exam 2 Exam: Exam: General: Alert but confused at baseline, no acute distress Resp: CTA bilateral CVS: S1,S2,RRR GI: +BS, NT, no distention Skin: No rash Neuro: motor grossly intact Psych: appropriate affect Vital Signs: Vital Signs: Last Vital Signs Temp 96.8 F 04/07/25 07:14 Pulse 71 04/07/25 07:14 Resp 16 04/07/25 07:14 BP 158/71 H 04/07/25 07:14 Pulse Ox 100 04/07/25 07:14 O2 Del Method Room Air 04/07/25 07:14 O2 Flow Rate 3 03/07/25 23:35 BMI result Body Mass Index 23.3 Objective Data Active Medications Acetaminophen (Acetaminophen 325 Mg Tablet) 650 mg PO Q6H PRN PRN Reason: Headache/Pain, Scale 1-10 Al Hydroxide/Mg Hydroxide (Magnesium Hydrox/Alum Hydrox 30 Ml Oral.Susp) 30 ml PO Q6H PRN PRN Reason: Heartburn/Nausea Last Admin: 03/20/25 15:11 Dose: 30 ml Documented By: KERRI Calcium Carbonate (Calcium Carbonate 750 Mg Tab.Chew) 750 mg PO Q4H PRN PRN Reason: Heartburn Clozapine (Clozapine 25 Mg Tablet) 50 mg PO TID [facility] Last Admin: 04/07/25 07:33 Dose: 50 mg Documented By: DEONNA Dextrose (Dextrose 50 % 25 Gm/50 Ml Syringe) 25 gm IVPUSH Q15M PRN; Protocol PRN Reason: per Hypoglycemia Standing Ord. Docusate Sodium (Docusate Sodium 100 Mg/10 Ml Liquid) 100 mg G-TUBE BID [facility] Last Admin: 04/07/25 07:34 Dose: Not Given Documented By: DEONNA Non-Admin Reason: Patient Refused Enoxaparin Sodium (Enoxaparin Sodium 40 Mg/0.4 Ml Syringe) 40 mg SUBCUT Q24H [facility] Last Admin: 04/06/25 09:05 Dose: Not Given Documented By: ANGIE Non-Admin Reason: Patient Refused Fluoxetine HCl (Fluoxetine Hcl 20 Mg Capsule) 40 mg PO BEDTIME NATE On Hold: 02/22/25 14:23 Last Admin: 02/21/25 22:23 Dose: Not Given Documented By: PAPITO Non-Admin Reason: pt refused Glucagon (Glucagon Hcl 1 Mg Vial) 1 mg IM Q20M PRN PRN Reason: low BG Glucose (Glucose Gel 15 Gm Gel..Gram.) 15 gm PO Q15M PRN; Protocol PRN Reason: per Hypoglycemia Standing Ord. Hydralazine HCl (Hydralazine Hcl 20 Mg/Ml Vial) 5 mg IVPUSH Q6H PRN; Protocol PRN Reason: htn Last Admin: 02/23/25 17:30 Dose: 5 mg Documented By: JAYME Insulin Glargine (Insulin Glargine,Hum.Rec.Anlog 100 Unit/Ml 10 Ml Vial) 30 unit SUBCUT DAILY [facility] On Hold: 03/14/25 09:00 Insulin Human Lispro (Insulin Lispro 100 Unit/Ml 3 Ml Vial) 0 unit SUBCUT QIDACHS [facility]; Protocol Last Admin: 04/07/25 07:24 Dose: Not Given Documented By: DEONNA Non-Admin Reason: No Insulin Coverage Magnesium Hydroxide (Milk Of Magnesia 30 Ml Oral.Susp) 30 ml PO DAILY PRN PRN Reason: Constipation Last Admin: 04/06/25 23:46 Dose: 30 ml Documented By: BAYLEE Melatonin (Melatonin 3 Mg Tablet) 6 mg PO BEDTIME PRN PRN Reason: Insomnia Last Admin: 04/03/25 22:06 Dose: 6 mg Documented By: CAROLINA Metoprolol Tartrate (Metoprolol Tartrate 12.5 Mg Halftab) 12.5 mg PO BID [facility]; Protocol Last Admin: 04/07/25 07:33 Dose: 12.5 mg Documented By: DEONNA Naloxone HCl (Naloxone Hcl 0.4 Mg/Ml Vial) 0.04 mg IVPUSH Q5M PRN PRN Reason: Excessive sedation or RR < 8 Nystatin (Nystatin Powder 15 Gm Bottle) 1 appl TOPICAL BID [facility]; Protocol Last Admin: 04/06/25 22:47 Dose: Not Given Documented By: BAYLEE Non-Admin Reason: Patient Refused Omeprazole (Omeprazole/Na Bicarb Oral Susp 20 Mg/10 Ml Ud Cup) 20 mg G-TUBE DAILY@0630 [facility] Last Admin: 04/07/25 05:21 Dose: 20 mg Documented By: BAYLEE Perphenazine (Perphenazine 2 Mg Tablet) 2 mg PO BID [facility] Last Admin: 04/07/25 07:33 Dose: 2 mg Documented By: DEONNA Perphenazine (Perphenazine 4 Mg Tablet) 4 mg PO BID [facility] Last Admin: 04/07/25 07:33 Dose: 4 mg Documented By: DEONNA Senna (Sennosides 8.6 Mg Tablet) 8.6 mg PO DAILY [facility] Last Admin: 04/07/25 07:33 Dose: 8.6 mg Documented By: DEONNA Sodium Biphosphate/Sodium Phosphate (Sodium Phosphate,[place]-Dibasic 133 Ml Enema) 133 ml [place] DAILY PRN PRN Reason: Constipation Last Admin: 03/11/25 12:18 Dose: 133 ml Documented By: STEPHANE Sodium Chloride (0.9 % Sodium Chloride Flush 3 Ml Syringe) 3 ml IVFLUSH QSHIFT [facility] Last Admin: 04/06/25 23:50 Dose: 3 ml Documented By: BAYLEE Trazodone HCl (Trazodone Hcl 50 Mg Tablet) 50 mg PO BEDTIME MRX1 PRN PRN Reason: Insomnia Last Admin: 03/20/25 21:26 Dose: 50 mg Documented By: RAMIRO Valproic Acid (Valproic Acid 250 Mg Capsule) 500 mg PO BID [facility] Last Admin: 04/07/25 07:33 Dose: 500 mg Documented By: DEONNA Labs 03/25/25 09:38 04/01/25 08:23 Labs: Laboratory Results - last 24 hr 04/06/25 04/06/25 04/06/25 07:43 11:20 16:03 POC Glucose 118 H 183 H 164 H 04/06/25 04/07/25 20:09 07:03 POC Glucose 201 H 116 H Assessment and Plan (1) Schizoaffective disorder: Status: Acute Plan 69-year-old male with a history of schizoaffective disorder (with psychotic features), major depressive disorder, diabetes, and GERD presented to the ED on 02/14/2025 after multiple falls. He was admitted for acute multifactorial encephalopathy, which was complicated by acute hypoxic respiratory failure secondary to aspiration pneumonia on 02/16/2025. Essentially no new issues, reamins confused at baseline Acute toxic/metabolic encephalopathyAcute hypoxic respiratory failure d/t Aspiration pneumonia Completed IV Unasyn; blood cultures negative. Weaned off supplemental oxygen, currently maintaining goal saturation of 95%. Aspiration precautions in place. Dysphagia: Evaluated by speech and swallow; recommended nectar-thickened liquids. Initially had poor oral intake and required TPN. Underwent G-tube placement on 03/02/2025. Tube feeds are being held while he is able to eat orally. Currently tolerating oral intake with NDD2 diet and nectar-thickened liquids. Psychiatric History: Schizoaffective disorder with psychotic features: Intermittent refusal of psychiatric medications and vital sign monitoring. Continue current regimen: fluoxetine, perphenazine (Trilafon), valproic acid (Depakote), clozapine (Clozaril), and valium. Psych follow-up as needed. Other Medical Issues: Diabetes, uncontrolled: continue Lantus 30 units; continue sliding scale insulin. Hypertension: No current management; blood pressure within normal limits. Summary: Patient is recovering from aspiration pneumonia and acute encephalopathy, now tolerating oral intake with dietary modifications. Psychiatric and medical management ongoing and need placement Routine labs 03/25/25 cbc, bmp unremarkable [facility] - VTE: Enoxaparin - CODE STATUS: Full code - DIET: NDD2 and [place] thick - DISPOSITION: Pending placement Quality Stroke Does the patient have a stroke diagnosis?: No VTE Prior VTE?: No VTE Risk Level:: Medical - moderate - high VTE Device Contraindication: Treatment Not Indicated VTE Drug Contraindication: N/A - Med Ordered
--- NOTE | 2025-04-07 11:23 | MHC.CM.PN ---
electronic medical record reviewed , REFERRAL INIATED TO [facility] ,
[2025-04-07 11:27] LABS: Glucose, Whole Blood 165 mg/dL (60-115)
[2025-04-07] MEDS: 0.9 % Sodium Chloride Flush 3 ML SYRINGE IVFLUSH ×2 (15:02→19:54)
--- NOTE | 2025-04-07 15:07 | PC.NURSE ---
Pt easily reoriented, cooperative and pleasant today.
[2025-04-07 16:00] VITALS: BP 168/74; PULSE 88; RESP 19; TEMP 36.4; O2SAT 98
[2025-04-07 16:26] LABS: Glucose, Whole Blood 196 mg/dL (60-115)
[2025-04-07 19:31] VITALS: BP 147/77; PULSE 88; RESP 18; TEMP 37.1; O2SAT 98
[2025-04-07] MEDS: Milk of Magnesia 30 ML ORAL.SUSP PO (19:40)
[2025-04-07 20:40] LABS: Glucose, Whole Blood 257 mg/dL (60-115)
[2025-04-08 03:21] VITALS: BP 152/72; PULSE 78; RESP 15; TEMP 36.3; O2SAT 100
[2025-04-08] MEDS: Omeprazole/Na Bicarb Oral Susp 20 MG/10 ML UD Cup G-TUBE (06:27)
[2025-04-08 07:28] VITALS: PULSE 61; RESP 16; TEMP 36.4; O2SAT 96
[2025-04-08 07:34] LABS: Glucose, Whole Blood 135 mg/dL (60-115)
[2025-04-08 09:43] VITALS: BP 140/79
[2025-04-08] MEDS: 0.9 % Sodium Chloride Flush 3 ML SYRINGE IVFLUSH ×3 (09:48→21:31)
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
--- NOTE | 2025-04-08 10:20 | HO.PM.IMPN ---
Subjective Subjective Date of Service: 04/08/25 Interval History: seems comfortable,No new events overnight. Review of Systems Review of Systems: Yes all other systems are reviewed and are negative Physical Exam Exam: Exam: General: Alert but confused at baseline, no acute distress Resp: CTA bilateral CVS: S1,S2,RRR GI: +BS, NT, no distention Skin: No rash Neuro: motor grossly intact Psych: appropriate affect Vital Signs: Vital Signs: Last Vital Signs Temp 97.6 F 04/08/25 07:28 Pulse 61 04/08/25 07:28 Resp 16 04/08/25 07:28 BP 140/79 H 04/08/25 09:43 Pulse Ox 96 04/08/25 07:28 O2 Del Method Room Air 04/08/25 07:28 O2 Flow Rate 3 03/07/25 23:35 BMI result Body Mass Index 23.3 Objective Data Active Medications Acetaminophen (Acetaminophen 325 Mg Tablet) 650 mg PO Q6H PRN PRN Reason: Headache/Pain, Scale 1-10 Al Hydroxide/Mg Hydroxide (Magnesium Hydrox/Alum Hydrox 30 Ml Oral.Susp) 30 ml PO Q6H PRN PRN Reason: Heartburn/Nausea Last Admin: 03/20/25 15:11 Dose: 30 ml Documented By: KERRI Calcium Carbonate (Calcium Carbonate 750 Mg Tab.Chew) 750 mg PO Q4H PRN PRN Reason: Heartburn Clozapine (Clozapine 25 Mg Tablet) 50 mg PO TID [facility] Last Admin: 04/07/25 19:38 Dose: 50 mg Documented By: CAROLINA Dextrose (Dextrose 50 % 25 Gm/50 Ml Syringe) 25 gm IVPUSH Q15M PRN; Protocol PRN Reason: per Hypoglycemia Standing Ord. Docusate Sodium (Docusate Sodium 100 Mg/10 Ml Liquid) 100 mg G-TUBE BID [facility] Last Admin: 04/07/25 19:40 Dose: 100 mg Documented By: CAROLINA Enoxaparin Sodium (Enoxaparin Sodium 40 Mg/0.4 Ml Syringe) 40 mg SUBCUT Q24H [facility] Last Admin: 04/07/25 11:27 Dose: Not Given Documented By: DEONNA Non-Admin Reason: Patient Refused Fluoxetine HCl (Fluoxetine Hcl 20 Mg Capsule) 40 mg PO BEDTIME [facility] On Hold: 02/22/25 14:23 Last Admin: 02/21/25 22:23 Dose: Not Given Documented By: PAPITO Non-Admin Reason: pt refused Glucagon (Glucagon Hcl 1 Mg Vial) 1 mg IM Q20M PRN PRN Reason: low BG Glucose (Glucose Gel 15 Gm Gel..Gram.) 15 gm PO Q15M PRN; Protocol PRN Reason: per Hypoglycemia Standing Ord. Hydralazine HCl (Hydralazine Hcl 20 Mg/Ml Vial) 5 mg IVPUSH Q6H PRN; Protocol PRN Reason: htn Last Admin: 02/23/25 17:30 Dose: 5 mg Documented By: JAYME Insulin Glargine (Insulin Glargine,Hum.Rec.Anlog 100 Unit/Ml 10 Ml Vial) 30 unit SUBCUT DAILY [facility] On Hold: 03/14/25 09:00 Insulin Human Lispro (Insulin Lispro 100 Unit/Ml 3 Ml Vial) 0 unit SUBCUT QIDACHS [facility]; Protocol Last Admin: 04/08/25 07:53 Dose: Not Given Documented By: OTTONIEL Non-Admin Reason: No Insulin Coverage Magnesium Hydroxide (Milk Of Magnesia 30 Ml Oral.Susp) 30 ml PO DAILY PRN PRN Reason: Constipation Last Admin: 04/07/25 19:40 Dose: 30 ml Documented By: CAROLINA Melatonin (Melatonin 3 Mg Tablet) 6 mg PO BEDTIME PRN PRN Reason: Insomnia Last Admin: 04/07/25 19:39 Dose: 6 mg Documented By: CAROLINA Metoprolol Tartrate (Metoprolol Tartrate 12.5 Mg Halftab) 12.5 mg PO BID [facility]; Protocol Last Admin: 04/07/25 19:38 Dose: 12.5 mg Documented By: CAROLINA Naloxone HCl (Naloxone Hcl 0.4 Mg/Ml Vial) 0.04 mg IVPUSH Q5M PRN PRN Reason: Excessive sedation or RR < 8 Nystatin (Nystatin Powder 15 Gm Bottle) 1 appl TOPICAL BID [facility]; Protocol Last Admin: 04/07/25 21:46 Dose: Not Given Documented By: CAROLINA Non-Admin Reason: Patient Refused Omeprazole (Omeprazole/Na Bicarb Oral Susp 20 Mg/10 Ml Ud Cup) 20 mg G-TUBE DAILY@0630 [facility] Last Admin: 04/08/25 06:27 Dose: 20 mg Documented By: CAROLINA Perphenazine (Perphenazine 2 Mg Tablet) 2 mg PO BID [facility] Last Admin: 04/07/25 19:39 Dose: 2 mg Documented By: CAROLINA Perphenazine (Perphenazine 4 Mg Tablet) 4 mg PO BID [facility] Last Admin: 04/07/25 19:39 Dose: 4 mg Documented By: CAROLINA Senna (Sennosides 8.6 Mg Tablet) 8.6 mg PO DAILY [facility] Last Admin: 04/07/25 07:33 Dose: 8.6 mg Documented By: DEONNA Sodium Biphosphate/Sodium Phosphate (Sodium Phosphate,[place]-Dibasic 133 Ml Enema) 133 ml [place] DAILY PRN PRN Reason: Constipation Last Admin: 03/11/25 12:18 Dose: 133 ml Documented By: STEPHANE Sodium Chloride (0.9 % Sodium Chloride Flush 3 Ml Syringe) 3 ml IVFLUSH QSHIFT [facility] Last Admin: 04/08/25 09:48 Dose: 3 ml Documented By: OTTONIEL Trazodone HCl (Trazodone Hcl 50 Mg Tablet) 50 mg PO BEDTIME MRX1 PRN PRN Reason: Insomnia Last Admin: 04/07/25 19:39 Dose: 50 mg Documented By: CAROLINA Valproic Acid (Valproic Acid 250 Mg Capsule) 500 mg PO BID [facility] Last Admin: 04/07/25 19:37 Dose: 500 mg Documented By: CAROLINA Labs 03/25/25 09:38 04/01/25 08:23 Labs: Laboratory Results - last 24 hr 04/07/25 04/07/25 04/07/25 11:19 16:14 20:37 POC Glucose 165 H 196 H 257 H 04/08/25 07:27 POC Glucose 135 H Assessment and Plan (1) Schizoaffective disorder: Status: Acute Plan 69-year-old male with a history of schizoaffective disorder (with psychotic features), major depressive disorder, diabetes, and GERD presented to the ED on 02/14/2025 after multiple falls. He was admitted for acute multifactorial encephalopathy, which was complicated by acute hypoxic respiratory failure secondary to aspiration pneumonia on 02/16/2025. Essentially no new issues, reamins confused at baseline Acute toxic/metabolic encephalopathyAcute hypoxic respiratory failure d/t Aspiration pneumonia Completed IV Unasyn; blood cultures negative. Weaned off supplemental oxygen, currently maintaining goal saturation of 95%. Aspiration precautions in place. Dysphagia: Evaluated by speech and swallow; recommended nectar-thickened liquids. Initially had poor oral intake and required TPN. Underwent G-tube placement on 03/02/2025. Tube feeds are being held while he is able to eat orally. Currently tolerating oral intake with NDD2 diet and nectar-thickened liquids. Psychiatric History: Schizoaffective disorder with psychotic features: Intermittent refusal of psychiatric medications and vital sign monitoring. Continue current regimen: fluoxetine, perphenazine (Trilafon), valproic acid (Depakote), clozapine (Clozaril), and valium. Psych follow-up as needed. Other Medical Issues: Diabetes, uncontrolled: continue Lantus 30 units; continue sliding scale insulin. Hypertension: No current management; blood pressure within normal limits. Summary: Patient is recovering from aspiration pneumonia and acute encephalopathy, now tolerating oral intake with dietary modifications. Psychiatric and medical management ongoing and need placement Routine labs 03/25/25 cbc, bmp unremarkable [facility] - VTE: Enoxaparin - CODE STATUS: Full code - DIET: NDD2 and [place] thick - DISPOSITION: Pending placement Quality Stroke Does the patient have a stroke diagnosis?: No VTE Prior VTE?: No VTE Risk Level:: Medical - moderate - high VTE Device Contraindication: Treatment Not Indicated VTE Drug Contraindication: N/A - Med Ordered
--- NOTE | 2025-04-08 10:37 | MHC.CM.PN ---
Electronic medical record reviewed, update hospitalist progress notes and 04/07 nursing faed to [facility] at their request,
[2025-04-08 11:17] LABS: Glucose, Whole Blood 165 mg/dL (60-115)
--- NOTE | 2025-04-08 12:14 | HO.WOUND ---
Wound care: new consult received for coccyx and groin redness, follow up right heel. Introduced self and reason for assessment, patient declined assessment at this time. will return at a later date/time for assessment. spoke with direct care RN, appropriate preventative measures in place.
--- NOTE | 2025-04-08 12:21 | PC.NURSE ---
Patient more pleasant and complaint but continued swearing regarding staff always wanting to do stuff , was able to retry some scheduled medications - refer to MAR. Patient refused full assessment and repositioning/changing by staff but was able to reposition self and boost self up in bed. Patient refused assessment of skin, especially under foam dressing on coccyx and heels - patient educated regarding pressure injury prevention. Bed alarm in place, call denny within reach, virtual monitor in place.
[2025-04-08 15:30] VITALS: BP 169/77; PULSE 90; RESP 19; TEMP 36.1; O2SAT 99
--- NOTE | 2025-04-08 16:02 | PC.NURSE ---
Pt pleasant this afternoon. Accepting of care, bed alarm on for safety. Able to make needs known when asked questions by this telegraphic typewriter installer.
[2025-04-08 16:19] LABS: Glucose, Whole Blood 169 mg/dL (60-115)
--- NOTE | 2025-04-08 16:30 | PC.NURSE ---
While patient was eating dinner, patient became compliant with taking scheduled PO medications. Patient still continued to refuse this nurse from physically assessing him, provide physical care or giving medication/water flushes through G tube. Patient educated on need for it but continued to refusing and saying everyone keeps teasing me when referring to physical care.
[2025-04-08 19:20] VITALS: BP 135/76; PULSE 70; RESP 18; TEMP 36.6; O2SAT 99
[2025-04-08 20:06] LABS: Glucose, Whole Blood 217 mg/dL (60-115)
[2025-04-08] MEDS: Metoprolol Tartrate 12.5 MG HALFTAB PO (21:15)
[2025-04-09 03:12] VITALS: BP 119/60; PULSE 63; RESP 15; TEMP 36.3; O2SAT 98
[2025-04-09] MEDS: Omeprazole/Na Bicarb Oral Susp 20 MG/10 ML UD Cup G-TUBE (05:45)
[2025-04-09 07:41] LABS: Glucose, Whole Blood 135 mg/dL (60-115)
[2025-04-09 07:50] VITALS: BP 115/59; PULSE 63; RESP 18; TEMP 36.4; O2SAT 96
--- NOTE | 2025-04-09 09:09 | P.PNIM_ITS ---
Subjective Subjective Date of Service: 04/09/25 Interval History: seems comfortable,No new events overnight. Review of Systems Review of Systems: Yes all other systems are reviewed and are negative Physical Exam 2 Exam: Exam: General: Alert but confused at baseline, no acute distress Resp: CTA bilateral CVS: S1,S2,RRR GI: +BS, NT, no distention Skin: No rash Neuro: motor grossly intact Psych: appropriate affect Vital Signs: Vital Signs: Last Vital Signs Temp 97.6 F 04/09/25 07:50 Pulse 63 04/09/25 07:50 Resp 18 04/09/25 07:50 BP 115/59 L 04/09/25 07:50 Pulse Ox 96 04/09/25 07:50 O2 Del Method Room Air 04/09/25 07:50 O2 Flow Rate 3 03/07/25 23:35 BMI result Body Mass Index 23.3 Objective Data Active Medications Acetaminophen (Acetaminophen 325 Mg Tablet) 650 mg PO Q6H PRN PRN Reason: Headache/Pain, Scale 1-10 Al Hydroxide/Mg Hydroxide (Magnesium Hydrox/Alum Hydrox 30 Ml Oral.Susp) 30 ml PO Q6H PRN PRN Reason: Heartburn/Nausea Last Admin: 03/20/25 15:11 Dose: 30 ml Documented By: KERRI Calcium Carbonate (Calcium Carbonate 750 Mg Tab.Chew) 750 mg PO Q4H PRN PRN Reason: Heartburn Clozapine (Clozapine 25 Mg Tablet) 50 mg PO TID [facility] Last Admin: 04/08/25 21:16 Dose: 50 mg Documented By: ZAYRA Dextrose (Dextrose 50 % 25 Gm/50 Ml Syringe) 25 gm IVPUSH Q15M PRN; Protocol PRN Reason: per Hypoglycemia Standing Ord. Docusate Sodium (Docusate Sodium 100 Mg/10 Ml Liquid) 100 mg G-TUBE BID [facility] Last Admin: 04/08/25 21:15 Dose: 100 mg Documented By: ZAYRA Enoxaparin Sodium (Enoxaparin Sodium 40 Mg/0.4 Ml Syringe) 40 mg SUBCUT Q24H [facility] Last Admin: 04/08/25 12:19 Dose: Not Given Documented By: OTTONIEL Non-Admin Reason: Patient Refused Fluoxetine HCl (Fluoxetine Hcl 20 Mg Capsule) 40 mg PO BEDTIME [facility] On Hold: 02/22/25 14:23 Last Admin: 02/21/25 22:23 Dose: Not Given Documented By: PAPITO Non-Admin Reason: pt refused Glucagon (Glucagon Hcl 1 Mg Vial) 1 mg IM Q20M PRN PRN Reason: low BG Glucose (Glucose Gel 15 Gm Gel..Gram.) 15 gm PO Q15M PRN; Protocol PRN Reason: per Hypoglycemia Standing Ord. Hydralazine HCl (Hydralazine Hcl 20 Mg/Ml Vial) 5 mg IVPUSH Q6H PRN; Protocol PRN Reason: htn Last Admin: 02/23/25 17:30 Dose: 5 mg Documented By: JAYME Insulin Glargine (Insulin Glargine,Hum.Rec.Anlog 100 Unit/Ml 10 Ml Vial) 30 unit SUBCUT DAILY [facility] On Hold: 03/14/25 09:00 Insulin Human Lispro (Insulin Lispro 100 Unit/Ml 3 Ml Vial) 0 unit SUBCUT QIDACHS [facility]; Protocol Last Admin: 04/09/25 08:28 Dose: Not Given Documented By: DEE Non-Admin Reason: No Insulin Coverage Magnesium Hydroxide (Milk Of Magnesia 30 Ml Oral.Susp) 30 ml PO DAILY PRN PRN Reason: Constipation Last Admin: 04/07/25 19:40 Dose: 30 ml Documented By: CAROLINA Melatonin (Melatonin 3 Mg Tablet) 6 mg PO BEDTIME PRN PRN Reason: Insomnia Last Admin: 04/07/25 19:39 Dose: 6 mg Documented By: CAROLINA Metoprolol Tartrate (Metoprolol Tartrate 12.5 Mg Halftab) 12.5 mg PO BID [facility]; Protocol Last Admin: 04/08/25 21:15 Dose: 12.5 mg Documented By: ZAYRA Naloxone HCl (Naloxone Hcl 0.4 Mg/Ml Vial) 0.04 mg IVPUSH Q5M PRN PRN Reason: Excessive sedation or RR < 8 Nystatin (Nystatin Powder 15 Gm Bottle) 1 appl TOPICAL BID [facility]; Protocol Last Admin: 04/08/25 22:05 Dose: Not Given Documented By: ZAYRA Non-Admin Reason: declined, I dont need that now Omeprazole (Omeprazole/Na Bicarb Oral Susp 20 Mg/10 Ml Ud Cup) 20 mg G-TUBE DAILY@0630 [facility] Last Admin: 04/09/25 05:45 Dose: 20 mg Documented By: ZAYRA Perphenazine (Perphenazine 2 Mg Tablet) 2 mg PO BID [facility] Last Admin: 04/08/25 21:15 Dose: 2 mg Documented By: ZAYRA Perphenazine (Perphenazine 4 Mg Tablet) 4 mg PO BID [facility] Last Admin: 04/08/25 21:15 Dose: 4 mg Documented By: ZAYRA Senna (Sennosides 8.6 Mg Tablet) 8.6 mg PO DAILY [facility] Last Admin: 04/08/25 12:19 Dose: Not Given Documented By: OTTONIEL Non-Admin Reason: Patient Refused Sodium Biphosphate/Sodium Phosphate (Sodium Phosphate,[place]-Dibasic 133 Ml Enema) 133 ml CO DAILY PRN PRN Reason: Constipation Last Admin: 03/11/25 12:18 Dose: 133 ml Documented By: STEPHANE Sodium Chloride (0.9 % Sodium Chloride Flush 3 Ml Syringe) 3 ml IVFLUSH QSHIFT [facility] Last Admin: 04/08/25 21:31 Dose: 3 ml Documented By: ZAYRA Trazodone HCl (Trazodone Hcl 50 Mg Tablet) 50 mg PO BEDTIME MRX1 PRN PRN Reason: Insomnia Last Admin: 04/07/25 19:39 Dose: 50 mg Documented By: CAROLINA Valproic Acid (Valproic Acid 250 Mg Capsule) 500 mg PO BID [facility] Last Admin: 04/08/25 21:15 Dose: 500 mg Documented By: ZAYRA Labs 03/25/25 09:38 04/01/25 08:23 Labs: Laboratory Results - last 24 hr 04/08/25 04/08/25 04/08/25 11:13 16:14 20:02 POC Glucose 165 H 169 H 217 H 04/09/25 07:29 POC Glucose 135 H Assessment and Plan (1) Schizoaffective disorder: Status: Acute Plan 69-year-old male with a history of schizoaffective disorder (with psychotic features), major depressive disorder, diabetes, and GERD presented to the ED on 02/14/2025 after multiple falls. He was admitted for acute multifactorial encephalopathy, which was complicated by acute hypoxic respiratory failure secondary to aspiration pneumonia on 02/16/2025. Essentially no new issues, reamins confused at baseline Acute toxic/metabolic encephalopathyAcute hypoxic respiratory failure d/t Aspiration pneumonia Completed IV Unasyn; blood cultures negative. Weaned off supplemental oxygen, currently maintaining goal saturation of 95%. Aspiration precautions in place. Dysphagia: Evaluated by speech and swallow; recommended nectar-thickened liquids. Initially had poor oral intake and required TPN. Underwent G-tube placement on 03/02/2025. Tube feeds are being held while he is able to eat orally. Currently tolerating oral intake with NDD2 diet and nectar-thickened liquids. Psychiatric History: Schizoaffective disorder with psychotic features: Intermittent refusal of psychiatric medications and vital sign monitoring. Continue current regimen: fluoxetine, perphenazine (Trilafon), valproic acid (Depakote), clozapine (Clozaril), and valium. Psych follow-up as needed. Other Medical Issues: Diabetes, uncontrolled: continue Lantus 30 units; continue sliding scale insulin. Hypertension: No current management; blood pressure within normal limits. Summary: Patient is recovering from aspiration pneumonia and acute encephalopathy, now tolerating oral intake with dietary modifications. Psychiatric and medical management ongoing and need placement Routine labs 03/25/25 cbc, bmp unremarkable [facility] - VTE: Enoxaparin - CODE STATUS: Full code - DIET: NDD2 and [place] thick - DISPOSITION: Pending placement Quality Stroke Does the patient have a stroke diagnosis?: No VTE Prior VTE?: No VTE Risk Level:: Medical - moderate - high VTE Device Contraindication: Treatment Not Indicated VTE Drug Contraindication: N/A - Med Ordered
[2025-04-09] MEDS: Metoprolol Tartrate 12.5 MG HALFTAB PO ×2 (09:29→20:05)
[2025-04-09] MEDS: 0.9 % Sodium Chloride Flush 3 ML SYRINGE IVFLUSH ×3 (09:29→20:06)
[2025-04-09 11:59] LABS: Glucose, Whole Blood 188 mg/dL (60-115)
--- NOTE | 2025-04-09 13:31 | HO.WOUND ---
Wound Consult: Follow up 69 yr old male admitted to [facility] on 02/16/25 - See progress notes and H&P for detailed history. Wound team following for right heel- new consult placed for coccyx and groin. Patient agreeable to assessment and photo documentation. Patient reports that he does not want foam dressing on coccyx - educated on purpose and patient still declines- per direct care team patient has been removing it. Educated patient on importance of position changes to prevent skin injury- patient agreeable. Right heel Etiology: previous stage 1 pressure injury - no healed Wound Bed: intct pink and blanching with surrounding thick dry peeling skin Drainage / Odor: none Coco wound: ? No Induration, Fluctuance or Warmth noted Pain: none Goals of Treatment: ? offloading - routine hygiene with moisturizer Coccyx Etiology: intact blanchable redness Wound Bed: intact blanchable redness Drainage / Odor: none Coco wound: ? No Induration, Fluctuance or Warmth noted Pain: none Goals of Treatment: ? offloading Perineum/groin Etiology: fungal appearin rash Wound Bed: intact red rash with satellite lesions Drainage / Odor: none Coco wound: ? No Induration, Fluctuance or Warmth noted Pain: none Goals of Treatment: ? antifungal per provider orders Recommendations: 1. Turn and Reposition every 2 hours and as needed for patient comfort. Use pillows or wedges to support off loading positions. 2. Off Load all bony prominences with use of pillows and heel boots if needed. Apply Preventative foams where needed. 3. Monitor for incontinence and moisture control, use barrier creams when needed for prevention and treatment. 4. Provide adequate and supplemental nutrition. 5. Order or Continue low air loss mattress. 6. When applicable maintain blood glucose levels per Providers order. Groin: gentle routine hygiene and incontinence care with pH balanced cleanser and bath wipes. antifungal medication per provider orders: apply a light dusting to prevent caking. apply triad paste BID and PRN. use disposable pads underneath patient when in chair or bed. use proactive toileting to promote continence. Bilateral heels: Elevate heels off of bed surface with pillows. Float heels off of pillows. Apply skin prep allow to dry. Apply heel foam dressings, peel back and assess Q shift and change every 5-7 days and PRN. Coccyx/buttocks: Off Load Pressure with Q2 hr turns and use of pillows - Cleanse with PH balance spray or wipes, pat dry. Apply foam dressing, change every 3 days, if patient agreeable. OR ?Apply thin layer of Triad to wound bed. Do not remove all of paste between applications as this may cause further skin damage, apply daily and PRN Re-consult wound care Nurse for wound deterioration or wound changes.
[2025-04-09 16:00] VITALS: BP 144/65; PULSE 75; RESP 20; TEMP 36.2; O2SAT 97
[2025-04-09 16:56] LABS: Glucose, Whole Blood 197 mg/dL (60-115)
--- NOTE | 2025-04-09 17:52 | PC.NURSE ---
Pt calm, cooperative, appropriate. Took all prescribed medications as ordered. Allowed physical assessment and PEG tube water flushes but resistant to getting OOB. Did get up to commode with 1 assist. Voids to urinal. Using call denny appropriately.
[2025-04-09 19:11] VITALS: BP 126/60; PULSE 77; RESP 18; TEMP 36.6; O2SAT 98
[2025-04-09 20:09] LABS: Glucose, Whole Blood 196 mg/dL (60-115)
--- NOTE | 2025-04-10 00:53 | PC.NURSE ---
Patient cooperative, but remains confused, agreeable to all his medications, crush those able and likes them in pudding. Declined Nystatin powder application despite education and attempts x 3. Color good, VSS, lung anguiano clear but dim to bases. Will continue to encourage repositioning and skin care. Did allow GT flushes as ordered.
[2025-04-10 04:00] VITALS: BP 136/63; PULSE 65; RESP 16; TEMP 36.1; O2SAT 97
[2025-04-10] MEDS: Omeprazole/Na Bicarb Oral Susp 20 MG/10 ML UD Cup G-TUBE (05:31)
[2025-04-10 06:03] LABS: Neut%MD 40.8 %; WBCANC 6.0 X10*3/uL
--- NOTE | 2025-04-10 06:42 | PC.NURSE ---
0620- Patient agreeable to partial bath, yvette care, Nystain, back care with lotion, and repositioned.
[2025-04-10 07:36] VITALS: BP 136/67; PULSE 62; RESP 16; TEMP 36.3; O2SAT 99
[2025-04-10 08:04] LABS: Glucose, Whole Blood 132 mg/dL (60-115)
--- NOTE | 2025-04-10 09:28 | P.PNIM_ITS ---
Subjective Subjective Date of Service: 04/10/25 Interval History: seems comfortable,No new events overnight. Review of Systems Review of Systems: Yes all other systems are reviewed and are negative Physical Exam 2 Exam: Exam: General: Alert but confused at baseline, no acute distress Resp: CTA bilateral CVS: S1,S2,RRR GI: +BS, NT, no distention Skin: No rash Neuro: motor grossly intact Psych: appropriate affect Vital Signs: Vital Signs: Last Vital Signs Temp 97.4 F 04/10/25 07:36 Pulse 62 04/10/25 07:36 Resp 16 04/10/25 07:36 BP 136/67 04/10/25 07:36 Pulse Ox 99 04/10/25 07:36 O2 Del Method Room Air 04/10/25 07:36 O2 Flow Rate 3 03/07/25 23:35 BMI result Body Mass Index 23.3 Objective Data Active Medications Acetaminophen (Acetaminophen 325 Mg Tablet) 650 mg PO Q6H PRN PRN Reason: Headache/Pain, Scale 1-10 Al Hydroxide/Mg Hydroxide (Magnesium Hydrox/Alum Hydrox 30 Ml Oral.Susp) 30 ml PO Q6H PRN PRN Reason: Heartburn/Nausea Last Admin: 03/20/25 15:11 Dose: 30 ml Documented By: KERRI Calcium Carbonate (Calcium Carbonate 750 Mg Tab.Chew) 750 mg PO Q4H PRN PRN Reason: Heartburn Clozapine (Clozapine 25 Mg Tablet) 50 mg PO TID [facility] Last Admin: 04/09/25 20:11 Dose: 50 mg Documented By: ZAYRA Dextrose (Dextrose 50 % 25 Gm/50 Ml Syringe) 25 gm IVPUSH Q15M PRN; Protocol PRN Reason: per Hypoglycemia Standing Ord. Docusate Sodium (Docusate Sodium 100 Mg/10 Ml Liquid) 100 mg G-TUBE BID [facility] Last Admin: 04/09/25 20:05 Dose: 100 mg Documented By: ZAYRA Enoxaparin Sodium (Enoxaparin Sodium 40 Mg/0.4 Ml Syringe) 40 mg SUBCUT Q24H [facility] Last Admin: 04/09/25 09:28 Dose: 40 mg Documented By: DEE Fluoxetine HCl (Fluoxetine Hcl 20 Mg Capsule) 40 mg PO BEDTIME [facility] On Hold: 02/22/25 14:23 Last Admin: 02/21/25 22:23 Dose: Not Given Documented By: PAPITO Non-Admin Reason: pt refused Glucagon (Glucagon Hcl 1 Mg Vial) 1 mg IM Q20M PRN PRN Reason: low BG Glucose (Glucose Gel 15 Gm Gel..Gram.) 15 gm PO Q15M PRN; Protocol PRN Reason: per Hypoglycemia Standing Ord. Hydralazine HCl (Hydralazine Hcl 20 Mg/Ml Vial) 5 mg IVPUSH Q6H PRN; Protocol PRN Reason: htn Last Admin: 02/23/25 17:30 Dose: 5 mg Documented By: JAYME Insulin Glargine (Insulin Glargine,Hum.Rec.Anlog 100 Unit/Ml 10 Ml Vial) 30 unit SUBCUT DAILY [facility] On Hold: 03/14/25 09:00 Insulin Human Lispro (Insulin Lispro 100 Unit/Ml 3 Ml Vial) 0 unit SUBCUT QIDACHS [facility]; Protocol Last Admin: 04/10/25 08:27 Dose: Not Given Documented By: DEE Non-Admin Reason: No Insulin Coverage Magnesium Hydroxide (Milk Of Magnesia 30 Ml Oral.Susp) 30 ml PO DAILY PRN PRN Reason: Constipation Last Admin: 04/07/25 19:40 Dose: 30 ml Documented By: CAROLINA Melatonin (Melatonin 3 Mg Tablet) 6 mg PO BEDTIME PRN PRN Reason: Insomnia Last Admin: 04/07/25 19:39 Dose: 6 mg Documented By: CAROLINA Metoprolol Tartrate (Metoprolol Tartrate 12.5 Mg Halftab) 12.5 mg PO BID [facility]; Protocol Last Admin: 04/09/25 20:05 Dose: 12.5 mg Documented By: ZAYRA Naloxone HCl (Naloxone Hcl 0.4 Mg/Ml Vial) 0.04 mg IVPUSH Q5M PRN PRN Reason: Excessive sedation or RR < 8 Nystatin (Nystatin Powder 15 Gm Bottle) 1 appl TOPICAL BID [facility]; Protocol Last Admin: 04/10/25 06:40 Dose: 1 appl Documented By: ZAYRA Omeprazole (Omeprazole/Na Bicarb Oral Susp 20 Mg/10 Ml Ud Cup) 20 mg G-TUBE DAILY@0630 [facility] Last Admin: 04/10/25 05:31 Dose: 20 mg Documented By: ZAYRA Perphenazine (Perphenazine 2 Mg Tablet) 2 mg PO BID [facility] Last Admin: 04/09/25 20:05 Dose: 2 mg Documented By: ZAYRA Perphenazine (Perphenazine 4 Mg Tablet) 4 mg PO BID [facility] Last Admin: 04/09/25 20:05 Dose: 4 mg Documented By: ZAYRA Senna (Sennosides 8.6 Mg Tablet) 8.6 mg PO DAILY [facility] Last Admin: 04/09/25 09:29 Dose: 8.6 mg Documented By: DEE Sodium Biphosphate/Sodium Phosphate (Sodium Phosphate,[place]-Dibasic 133 Ml Enema) 133 ml CO DAILY PRN PRN Reason: Constipation Last Admin: 03/11/25 12:18 Dose: 133 ml Documented By: STEPHANE Sodium Chloride (0.9 % Sodium Chloride Flush 3 Ml Syringe) 3 ml IVFLUSH QSHIFT [facility] Last Admin: 04/09/25 20:06 Dose: 3 ml Documented By: ZAYRA Trazodone HCl (Trazodone Hcl 50 Mg Tablet) 50 mg PO BEDTIME MRX1 PRN PRN Reason: Insomnia Last Admin: 04/07/25 19:39 Dose: 50 mg Documented By: CAROLINA Valproic Acid (Valproic Acid 250 Mg Capsule) 500 mg PO BID [facility] Last Admin: 04/09/25 20:05 Dose: 500 mg Documented By: ZAYRA Labs 03/25/25 09:38 04/01/25 08:23 Labs: Laboratory Results - last 24 hr 04/09/25 04/09/25 04/09/25 11:34 16:51 19:22 Absolute Neuts (auto) POC Glucose 188 H 197 H 196 H 04/10/25 04/10/25 05:36 07:39 Absolute Neuts (auto) 2.5 POC Glucose 132 H Assessment and Plan (1) Schizoaffective disorder: Status: Acute Plan 69-year-old male with a history of schizoaffective disorder (with psychotic features), major depressive disorder, diabetes, and GERD presented to the ED on 02/14/2025 after multiple falls. He was admitted for acute multifactorial encephalopathy, which was complicated by acute hypoxic respiratory failure secondary to aspiration pneumonia on 02/16/2025. Essentially no new issues, reamins confused at baseline Acute toxic/metabolic encephalopathyAcute hypoxic respiratory failure d/t Aspiration pneumonia Completed IV Unasyn; blood cultures negative. Weaned off supplemental oxygen, currently maintaining goal saturation of 95%. Aspiration precautions in place. Dysphagia: Evaluated by speech and swallow; recommended nectar-thickened liquids. Initially had poor oral intake and required TPN. Underwent G-tube placement on 03/02/2025. Tube feeds are being held while he is able to eat orally. Currently tolerating oral intake with NDD2 diet and nectar-thickened liquids. Psychiatric History: Schizoaffective disorder with psychotic features: Intermittent refusal of psychiatric medications and vital sign monitoring. Continue current regimen: fluoxetine, perphenazine (Trilafon), valproic acid (Depakote), clozapine (Clozaril), and valium. Psych follow-up as needed. Other Medical Issues: Diabetes, uncontrolled: continue Lantus 30 units; continue sliding scale insulin. Hypertension: No current management; blood pressure within normal limits. Summary: Patient is recovering from aspiration pneumonia and acute encephalopathy, now tolerating oral intake with dietary modifications. Psychiatric and medical management ongoing and need placement Routine labs 03/25/25 cbc, bmp unremarkable [facility] - VTE: Enoxaparin - CODE STATUS: Full code - DIET: NDD2 and [place] thick - DISPOSITION: Pending placement Quality Stroke Does the patient have a stroke diagnosis?: No VTE Prior VTE?: No VTE Risk Level:: Medical - moderate - high VTE Device Contraindication: Treatment Not Indicated VTE Drug Contraindication: N/A - Med Ordered
[2025-04-10] MEDS: Metoprolol Tartrate 12.5 MG HALFTAB PO ×2 (09:38→21:11)
[2025-04-10] MEDS: 0.9 % Sodium Chloride Flush 3 ML SYRINGE IVFLUSH ×3 (09:44→21:19)
[2025-04-10 11:43] LABS: Glucose, Whole Blood 149 mg/dL (60-115)
--- NOTE | 2025-04-10 12:51 | MHC.CM.PN ---
Patient continues to await placement. Updated nursing notes sent to Danya Corbett, who continues to review. CM will continue to follow.
[2025-04-10 15:32] VITALS: BP 140/70; PULSE 69; RESP 18; TEMP 36.2; O2SAT 100
[2025-04-10 16:05] LABS: Glucose, Whole Blood 166 mg/dL (60-115)
--- NOTE | 2025-04-10 18:53 | PC.NURSE ---
Pt calm, cooperative. Took all meds as ordered. Ambulated in [place] about 500 feet with walker. No behavior issues this shift.
[2025-04-10 20:00] VITALS: BP 135/75; PULSE 73; RESP 18; TEMP 36.3; O2SAT 98
[2025-04-10 21:09] LABS: Glucose, Whole Blood 229 mg/dL (60-115)
[2025-04-11 03:38] VITALS: BP 128/64; PULSE 70; RESP 18; TEMP 36.4; O2SAT 96
[2025-04-11] MEDS: Omeprazole/Na Bicarb Oral Susp 20 MG/10 ML UD Cup G-TUBE (06:15)
[2025-04-11 08:00] VITALS: BP 130/63; PULSE 58; RESP 16; TEMP 36.6; O2SAT 96
[2025-04-11 08:25] LABS: Glucose, Whole Blood 165 mg/dL (60-115)
--- NOTE | 2025-04-11 08:43 | HO.PM.IMPN ---
Subjective Subjective Date of Service: 04/11/25 Interval History: no new complaints Review of Systems Review of Systems: Yes all other systems are reviewed and are negative Physical Exam Exam: Exam: General: Alert but confused at baseline, no acute distress Resp: CTA bilateral CVS: S1,S2,RRR GI: +BS, NT, no distention Skin: No rash Neuro: motor grossly intact Psych: appropriate affect Vital Signs: Vital Signs: Last Vital Signs Temp 94.9 F L 04/11/25 08:00 Pulse 58 04/11/25 08:00 Resp 16 04/11/25 08:00 BP 130/63 04/11/25 08:00 Pulse Ox 96 04/11/25 08:00 O2 Del Method Room Air 04/11/25 08:00 O2 Flow Rate 3 03/07/25 23:35 BMI result Body Mass Index 23.3 Objective Data Active Medications Acetaminophen (Acetaminophen 325 Mg Tablet) 650 mg PO Q6H PRN PRN Reason: Headache/Pain, Scale 1-10 Al Hydroxide/Mg Hydroxide (Magnesium Hydrox/Alum Hydrox 30 Ml Oral.Susp) 30 ml PO Q6H PRN PRN Reason: Heartburn/Nausea Last Admin: 03/20/25 15:11 Dose: 30 ml Documented By: KERRI Calcium Carbonate (Calcium Carbonate 750 Mg Tab.Chew) 750 mg PO Q4H PRN PRN Reason: Heartburn Clozapine (Clozapine 25 Mg Tablet) 50 mg PO TID [facility] Last Admin: 04/10/25 21:10 Dose: 50 mg Documented By: BAYLEE Dextrose (Dextrose 50 % 25 Gm/50 Ml Syringe) 25 gm IVPUSH Q15M PRN; Protocol PRN Reason: per Hypoglycemia Standing Ord. Docusate Sodium (Docusate Sodium 100 Mg/10 Ml Liquid) 100 mg G-TUBE BID [facility] Last Admin: 04/10/25 21:20 Dose: Not Given Documented By: BAYLEE Non-Admin Reason: Patient Refused Enoxaparin Sodium (Enoxaparin Sodium 40 Mg/0.4 Ml Syringe) 40 mg SUBCUT Q24H [facility] Last Admin: 04/10/25 10:29 Dose: 40 mg Documented By: DEE Fluoxetine HCl (Fluoxetine Hcl 20 Mg Capsule) 40 mg PO BEDTIME [facility] On Hold: 02/22/25 14:23 Last Admin: 02/21/25 22:23 Dose: Not Given Documented By: PAPITO Non-Admin Reason: pt refused Glucagon (Glucagon Hcl 1 Mg Vial) 1 mg IM Q20M PRN PRN Reason: low BG Glucose (Glucose Gel 15 Gm Gel..Gram.) 15 gm PO Q15M PRN; Protocol PRN Reason: per Hypoglycemia Standing Ord. Hydralazine HCl (Hydralazine Hcl 20 Mg/Ml Vial) 5 mg IVPUSH Q6H PRN; Protocol PRN Reason: htn Last Admin: 02/23/25 17:30 Dose: 5 mg Documented By: JAYME Insulin Glargine (Insulin Glargine,Hum.Rec.Anlog 100 Unit/Ml 10 Ml Vial) 30 unit SUBCUT DAILY [facility] On Hold: 03/14/25 09:00 Insulin Human Lispro (Insulin Lispro 100 Unit/Ml 3 Ml Vial) 0 unit SUBCUT QIDACHS [facility]; Protocol Last Admin: 04/10/25 21:12 Dose: 4 unit Documented By: BAYLEE Magnesium Hydroxide (Milk Of Magnesia 30 Ml Oral.Susp) 30 ml PO DAILY PRN PRN Reason: Constipation Last Admin: 04/07/25 19:40 Dose: 30 ml Documented By: CAROLINA Melatonin (Melatonin 3 Mg Tablet) 6 mg PO BEDTIME PRN PRN Reason: Insomnia Last Admin: 04/07/25 19:39 Dose: 6 mg Documented By: CAROLINA Metoprolol Tartrate (Metoprolol Tartrate 12.5 Mg Halftab) 12.5 mg PO BID [facility]; Protocol Last Admin: 04/10/25 21:11 Dose: 12.5 mg Documented By: BAYLEE Naloxone HCl (Naloxone Hcl 0.4 Mg/Ml Vial) 0.04 mg IVPUSH Q5M PRN PRN Reason: Excessive sedation or RR < 8 Nystatin (Nystatin Powder 15 Gm Bottle) 1 appl TOPICAL BID [facility]; Protocol Last Admin: 04/10/25 21:20 Dose: Not Given Documented By: BAYLEE Non-Admin Reason: Patient Refused Omeprazole (Omeprazole/Na Bicarb Oral Susp 20 Mg/10 Ml Ud Cup) 20 mg G-TUBE DAILY@0630 [facility] Last Admin: 04/11/25 06:15 Dose: 20 mg Documented By: OBED Perphenazine (Perphenazine 2 Mg Tablet) 2 mg PO BID [facility] Last Admin: 04/10/25 21:11 Dose: 2 mg Documented By: BAYLEE Perphenazine (Perphenazine 4 Mg Tablet) 4 mg PO BID [facility] Last Admin: 04/10/25 21:10 Dose: 4 mg Documented By: BAYLEE Senna (Sennosides 8.6 Mg Tablet) 8.6 mg PO DAILY [facility] Last Admin: 04/10/25 09:38 Dose: 8.6 mg Documented By: DEE Sodium Biphosphate/Sodium Phosphate (Sodium Phosphate,[place]-Dibasic 133 Ml Enema) 133 ml [place] DAILY PRN PRN Reason: Constipation Last Admin: 03/11/25 12:18 Dose: 133 ml Documented By: STEPHANE Sodium Chloride (0.9 % Sodium Chloride Flush 3 Ml Syringe) 3 ml IVFLUSH QSHIFT [facility] Last Admin: 04/10/25 21:19 Dose: 3 ml Documented By: BAYLEE Trazodone HCl (Trazodone Hcl 50 Mg Tablet) 50 mg PO BEDTIME MRX1 PRN PRN Reason: Insomnia Last Admin: 04/07/25 19:39 Dose: 50 mg Documented By: CAROLINA Valproic Acid (Valproic Acid 250 Mg Capsule) 500 mg PO BID [facility] Last Admin: 04/10/25 21:11 Dose: 500 mg Documented By: BAYLEE Labs 03/25/25 09:38 04/01/25 08:23 Labs: Laboratory Results - last 24 hr 04/10/25 04/10/25 04/10/25 11:39 15:52 21:05 POC Glucose 149 H 166 H 229 H 04/11/25 08:14 POC Glucose 165 H Assessment and Plan (1) Schizoaffective disorder: Status: Acute Plan 69-year-old male with a history of schizoaffective disorder (with psychotic features), major depressive disorder, diabetes, and GERD presented to the ED on 02/14/2025 after multiple falls. He was admitted for acute multifactorial encephalopathy, which was complicated by acute hypoxic respiratory failure secondary to aspiration pneumonia on 02/16/2025. Essentially no new issues, reamins confused at baseline Acute toxic/metabolic encephalopathyAcute hypoxic respiratory failure d/t Aspiration pneumonia Completed IV Unasyn; blood cultures negative. Weaned off supplemental oxygen, currently maintaining goal saturation of 95%. Aspiration precautions in place. Dysphagia: Evaluated by speech and swallow; recommended nectar-thickened liquids. Initially had poor oral intake and required TPN. Underwent G-tube placement on 03/02/2025. Tube feeds are being held while he is able to eat orally. Currently tolerating oral intake with NDD2 diet and nectar-thickened liquids. Psychiatric History: Schizoaffective disorder with psychotic features: Intermittent refusal of psychiatric medications and vital sign monitoring. Continue current regimen: fluoxetine, perphenazine (Trilafon), valproic acid (Depakote), clozapine (Clozaril), and valium. Psych follow-up as needed. Other Medical Issues: Diabetes, uncontrolled: continue Lantus 30 units; continue sliding scale insulin. Hypertension: No current management; blood pressure within normal limits. Summary: Patient is recovering from aspiration pneumonia and acute encephalopathy, now tolerating oral intake with dietary modifications. Psychiatric and medical management ongoing and need placement Routine labs 03/25/25 cbc, bmp unremarkable [facility] - VTE: Enoxaparin - CODE STATUS: Full code - DIET: NDD2 and [place] thick - DISPOSITION: Pending placement Quality Stroke Does the patient have a stroke diagnosis?: No VTE Prior VTE?: No VTE Risk Level:: Medical - moderate - high VTE Device Contraindication: Treatment Not Indicated VTE Drug Contraindication: N/A - Med Ordered
[2025-04-11] MEDS: Metoprolol Tartrate 12.5 MG HALFTAB PO ×2 (08:57→21:19)
[2025-04-11] MEDS: 0.9 % Sodium Chloride Flush 3 ML SYRINGE IVFLUSH ×2 (08:58→15:43)
[2025-04-11 11:37] LABS: Glucose, Whole Blood 187 mg/dL (60-115)
--- NOTE | 2025-04-11 12:04 | PC.NURSE ---
Patient calm and cooperative with care this shift.
[2025-04-11 15:39] VITALS: BP 132/72; PULSE 68; RESP 12; TEMP 36.5; O2SAT 99
[2025-04-11 16:36] LABS: Glucose, Whole Blood 120 mg/dL (60-115)
[2025-04-11 19:55] VITALS: BP 122/68; PULSE 71; RESP 18; TEMP 36.6; O2SAT 100
[2025-04-11 21:09] LABS: Glucose, Whole Blood 209 mg/dL (60-115)
[2025-04-12 03:21] VITALS: BP 130/63; PULSE 74; RESP 18; TEMP 36.1; O2SAT 96
[2025-04-12 07:39] VITALS: BP 138/63; PULSE 62; RESP 16; TEMP 36.4; O2SAT 98
[2025-04-12 08:19] LABS: Glucose, Whole Blood 130 mg/dL (60-115)
[2025-04-12] MEDS: Metoprolol Tartrate 12.5 MG HALFTAB PO ×2 (09:23→20:43)
[2025-04-12] MEDS: 0.9 % Sodium Chloride Flush 3 ML SYRINGE IVFLUSH ×3 (09:23→20:44)
--- NOTE | 2025-04-12 10:51 | P.PNIM_ITS ---
Subjective Subjective Date of Service: 04/12/25 Interval History: no new complaints Review of Systems Review of Systems: Yes all other systems are reviewed and are negative Physical Exam 2 Exam: Exam: General: Alert but confused at baseline, no acute distress Resp: CTA bilateral CVS: S1,S2,RRR GI: +BS, NT, no distention Skin: No rash Neuro: motor grossly intact Psych: appropriate affect Vital Signs: Vital Signs: Last Vital Signs Temp 97.6 F 04/12/25 07:39 Pulse 62 04/12/25 07:39 Resp 16 04/12/25 07:39 BP 138/63 04/12/25 07:39 Pulse Ox 98 04/12/25 07:39 O2 Del Method Room Air 04/12/25 07:39 O2 Flow Rate 3 03/07/25 23:35 BMI result Body Mass Index 23.3 Objective Data Active Medications Acetaminophen (Acetaminophen 325 Mg Tablet) 650 mg PO Q6H PRN PRN Reason: Headache/Pain, Scale 1-10 Al Hydroxide/Mg Hydroxide (Magnesium Hydrox/Alum Hydrox 30 Ml Oral.Susp) 30 ml PO Q6H PRN PRN Reason: Heartburn/Nausea Last Admin: 03/20/25 15:11 Dose: 30 ml Documented By: KERRI Calcium Carbonate (Calcium Carbonate 750 Mg Tab.Chew) 750 mg PO Q4H PRN PRN Reason: Heartburn Clozapine (Clozapine 25 Mg Tablet) 50 mg PO TID [facility] Last Admin: 04/12/25 09:23 Dose: 50 mg Documented By: SUZIE Dextrose (Dextrose 50 % 25 Gm/50 Ml Syringe) 25 gm IVPUSH Q15M PRN; Protocol PRN Reason: per Hypoglycemia Standing Ord. Docusate Sodium (Docusate Sodium 100 Mg/10 Ml Liquid) 100 mg G-TUBE BID [facility] Last Admin: 04/12/25 09:28 Dose: Not Given Documented By: SUZIE Non-Admin Reason: Patient Refused Enoxaparin Sodium (Enoxaparin Sodium 40 Mg/0.4 Ml Syringe) 40 mg SUBCUT Q24H [facility] Last Admin: 04/12/25 09:23 Dose: 40 mg Documented By: SUZIE Fluoxetine HCl (Fluoxetine Hcl 20 Mg Capsule) 40 mg PO BEDTIME [facility] On Hold: 02/22/25 14:23 Last Admin: 02/21/25 22:23 Dose: Not Given Documented By: PAPITO Non-Admin Reason: pt refused Glucagon (Glucagon Hcl 1 Mg Vial) 1 mg IM Q20M PRN PRN Reason: low BG Glucose (Glucose Gel 15 Gm Gel..Gram.) 15 gm PO Q15M PRN; Protocol PRN Reason: per Hypoglycemia Standing Ord. Hydralazine HCl (Hydralazine Hcl 20 Mg/Ml Vial) 5 mg IVPUSH Q6H PRN; Protocol PRN Reason: htn Last Admin: 02/23/25 17:30 Dose: 5 mg Documented By: JAYME Insulin Glargine (Insulin Glargine,Hum.Rec.Anlog 100 Unit/Ml 10 Ml Vial) 30 unit SUBCUT DAILY [facility] On Hold: 03/14/25 09:00 Insulin Human Lispro (Insulin Lispro 100 Unit/Ml 3 Ml Vial) 0 unit SUBCUT QIDACHS [facility]; Protocol Last Admin: 04/12/25 08:20 Dose: Not Given Documented By: SUZIE Non-Admin Reason: No Insulin Coverage Magnesium Hydroxide (Milk Of Magnesia 30 Ml Oral.Susp) 30 ml PO DAILY PRN PRN Reason: Constipation Last Admin: 04/07/25 19:40 Dose: 30 ml Documented By: CAROLINA Melatonin (Melatonin 3 Mg Tablet) 6 mg PO BEDTIME PRN PRN Reason: Insomnia Last Admin: 04/07/25 19:39 Dose: 6 mg Documented By: CAROLINA Metoprolol Tartrate (Metoprolol Tartrate 12.5 Mg Halftab) 12.5 mg PO BID [facility]; Protocol Last Admin: 04/12/25 09:23 Dose: 12.5 mg Documented By: SUZIE Naloxone HCl (Naloxone Hcl 0.4 Mg/Ml Vial) 0.04 mg IVPUSH Q5M PRN PRN Reason: Excessive sedation or RR < 8 Nystatin (Nystatin Powder 15 Gm Bottle) 1 appl TOPICAL BID [facility]; Protocol Last Admin: 04/12/25 09:28 Dose: Not Given Documented By: SUZIE Non-Admin Reason: Patient Refused Omeprazole (Omeprazole/Na Bicarb Oral Susp 20 Mg/10 Ml Ud Cup) 20 mg G-TUBE DAILY@0630 [facility] Last Admin: 04/12/25 05:30 Dose: Not Given Documented By: OBED Non-Admin Reason: Patient Refused Perphenazine (Perphenazine 2 Mg Tablet) 2 mg PO BID [facility] Last Admin: 04/12/25 09:23 Dose: 2 mg Documented By: SUZIE Perphenazine (Perphenazine 4 Mg Tablet) 4 mg PO BID [facility] Last Admin: 04/12/25 09:23 Dose: 4 mg Documented By: SUZIE Senna (Sennosides 8.6 Mg Tablet) 8.6 mg PO DAILY [facility] Last Admin: 04/12/25 09:23 Dose: 8.6 mg Documented By: SUZIE Sodium Biphosphate/Sodium Phosphate (Sodium Phosphate,[place]-Dibasic 133 Ml Enema) 133 ml [place] DAILY PRN PRN Reason: Constipation Last Admin: 03/11/25 12:18 Dose: 133 ml Documented By: STEPHANE Sodium Chloride (0.9 % Sodium Chloride Flush 3 Ml Syringe) 3 ml IVFLUSH QSHIFT [facility] Last Admin: 04/12/25 09:23 Dose: 3 ml Documented By: SUZIE Trazodone HCl (Trazodone Hcl 50 Mg Tablet) 50 mg PO BEDTIME MRX1 PRN PRN Reason: Insomnia Last Admin: 04/07/25 19:39 Dose: 50 mg Documented By: CAROLINA Valproic Acid (Valproic Acid 250 Mg Capsule) 500 mg PO BID [facility] Last Admin: 04/12/25 09:23 Dose: 500 mg Documented By: SUZIE Labs 03/25/25 09:38 04/01/25 08:23 Labs: Laboratory Results - last 24 hr 04/11/25 04/11/25 04/11/25 11:26 15:42 21:00 POC Glucose 187 H 120 H 209 H 04/12/25 07:50 POC Glucose 130 H Assessment and Plan (1) Schizoaffective disorder: Status: Acute Plan 69-year-old male with a history of schizoaffective disorder (with psychotic features), major depressive disorder, diabetes, and GERD presented to the ED on 02/14/2025 after multiple falls. He was admitted for acute multifactorial encephalopathy, which was complicated by acute hypoxic respiratory failure secondary to aspiration pneumonia on 02/16/2025. Essentially no new issues, reamins confused at baseline Acute toxic/metabolic encephalopathyAcute hypoxic respiratory failure d/t Aspiration pneumonia Completed IV Unasyn; blood cultures negative. Weaned off supplemental oxygen, currently maintaining goal saturation of 95%. Aspiration precautions in place. Dysphagia: Evaluated by speech and swallow; recommended nectar-thickened liquids. Initially had poor oral intake and required TPN. Underwent G-tube placement on 03/02/2025. Tube feeds are being held while he is able to eat orally. Currently tolerating oral intake with NDD2 diet and nectar-thickened liquids. Psychiatric History: Schizoaffective disorder with psychotic features: Intermittent refusal of psychiatric medications and vital sign monitoring. Continue current regimen: fluoxetine, perphenazine (Trilafon), valproic acid (Depakote), clozapine (Clozaril), and valium. Psych follow-up as needed. Other Medical Issues: Diabetes, uncontrolled: continue Lantus 30 units; continue sliding scale insulin. Hypertension: No current management; blood pressure within normal limits. Summary: Patient is recovering from aspiration pneumonia and acute encephalopathy, now tolerating oral intake with dietary modifications. Psychiatric and medical management ongoing and need placement Routine labs 03/25/25 cbc, bmp unremarkable [facility] - VTE: Enoxaparin - CODE STATUS: Full code - DIET: NDD2 and [place] thick - DISPOSITION: Pending placement Quality Stroke Does the patient have a stroke diagnosis?: No VTE Prior VTE?: No VTE Risk Level:: Medical - moderate - high VTE Device Contraindication: Treatment Not Indicated VTE Drug Contraindication: N/A - Med Ordered
[2025-04-12 11:26] LABS: Glucose, Whole Blood 212 mg/dL (60-115)
--- NOTE | 2025-04-12 12:30 | PC.NURSE ---
Calm and cooperative with care this shift, open and excited that he has a new roommate.
[2025-04-12 16:23] LABS: Glucose, Whole Blood 122 mg/dL (60-115)
[2025-04-12 19:34] VITALS: BP 135/72; PULSE 83; RESP 15; TEMP 36.1; O2SAT 98
[2025-04-12 20:28] LABS: Glucose, Whole Blood 160 mg/dL (60-115)
[2025-04-12] MEDS: Milk of Magnesia 30 ML ORAL.SUSP PO (20:43)
[2025-04-13 03:06] VITALS: BP 152/71; PULSE 78; RESP 15; TEMP 36.7; O2SAT 100
--- NOTE | 2025-04-13 07:26 | PC.NURSE ---
Pt cooperative throughout the night, with multiple attempts to get up and use the commode throughout the night. Some verbal outburst to staff, but otherwise, calm and cooperative.
[2025-04-13 07:28] VITALS: BP 155/74; PULSE 73; RESP 16; TEMP 36.2; O2SAT 100
[2025-04-13 07:58] LABS: Glucose, Whole Blood 144 mg/dL (60-115)
--- NOTE | 2025-04-13 08:10 | P.PNIM_ITS ---
Subjective Subjective Date of Service: 04/13/25 Interval History: no new complaints Review of Systems Review of Systems: Yes all other systems are reviewed and are negative Physical Exam 2 Exam: Exam: General: Alert but confused at baseline, no acute distress Resp: CTA bilateral CVS: S1,S2,RRR GI: +BS, NT, no distention Skin: No rash Neuro: motor grossly intact Psych: appropriate affect Vital Signs: Vital Signs: Last Vital Signs Temp 97.2 F 04/13/25 07:28 Pulse 73 04/13/25 07:28 Resp 16 04/13/25 07:28 BP 155/74 H 04/13/25 07:28 Pulse Ox 100 04/13/25 07:28 O2 Del Method Room Air 04/13/25 07:28 O2 Flow Rate 3 03/07/25 23:35 BMI result Body Mass Index 23.3 Objective Data Active Medications Acetaminophen (Acetaminophen 325 Mg Tablet) 650 mg PO Q6H PRN PRN Reason: Headache/Pain, Scale 1-10 Al Hydroxide/Mg Hydroxide (Magnesium Hydrox/Alum Hydrox 30 Ml Oral.Susp) 30 ml PO Q6H PRN PRN Reason: Heartburn/Nausea Last Admin: 03/20/25 15:11 Dose: 30 ml Documented By: GRAZMELISSA Calcium Carbonate (Calcium Carbonate 750 Mg Tab.Chew) 750 mg PO Q4H PRN PRN Reason: Heartburn Clozapine (Clozapine 25 Mg Tablet) 50 mg PO TID [facility] Last Admin: 04/12/25 20:43 Dose: 50 mg Documented By: CAROLINA Dextrose (Dextrose 50 % 25 Gm/50 Ml Syringe) 25 gm IVPUSH Q15M PRN; Protocol PRN Reason: per Hypoglycemia Standing Ord. Docusate Sodium (Docusate Sodium 100 Mg/10 Ml Liquid) 100 mg G-TUBE BID [facility] Last Admin: 04/12/25 20:43 Dose: 100 mg Documented By: CAROLINA Enoxaparin Sodium (Enoxaparin Sodium 40 Mg/0.4 Ml Syringe) 40 mg SUBCUT Q24H [facility] Last Admin: 04/12/25 09:23 Dose: 40 mg Documented By: SUZIE Fluoxetine HCl (Fluoxetine Hcl 20 Mg Capsule) 40 mg PO BEDTIME [facility] On Hold: 02/22/25 14:23 Last Admin: 02/21/25 22:23 Dose: Not Given Documented By: PAPITO Non-Admin Reason: pt refused Glucagon (Glucagon Hcl 1 Mg Vial) 1 mg IM Q20M PRN PRN Reason: low BG Glucose (Glucose Gel 15 Gm Gel..Gram.) 15 gm PO Q15M PRN; Protocol PRN Reason: per Hypoglycemia Standing Ord. Hydralazine HCl (Hydralazine Hcl 20 Mg/Ml Vial) 5 mg IVPUSH Q6H PRN; Protocol PRN Reason: htn Last Admin: 02/23/25 17:30 Dose: 5 mg Documented By: JAYME Insulin Glargine (Insulin Glargine,Hum.Rec.Anlog 100 Unit/Ml 10 Ml Vial) 30 unit SUBCUT DAILY [facility] On Hold: 03/14/25 09:00 Insulin Human Lispro (Insulin Lispro 100 Unit/Ml 3 Ml Vial) 0 unit SUBCUT QIDACHS [facility]; Protocol Last Admin: 04/13/25 08:01 Dose: Not Given Documented By: VANESSA Non-Admin Reason: No Insulin Coverage Magnesium Hydroxide (Milk Of Magnesia 30 Ml Oral.Susp) 30 ml PO DAILY PRN PRN Reason: Constipation Last Admin: 04/12/25 20:43 Dose: 30 ml Documented By: CAROLINA Melatonin (Melatonin 3 Mg Tablet) 6 mg PO BEDTIME PRN PRN Reason: Insomnia Last Admin: 04/12/25 20:42 Dose: 6 mg Documented By: CAROLINA Metoprolol Tartrate (Metoprolol Tartrate 12.5 Mg Halftab) 12.5 mg PO BID [facility]; Protocol Last Admin: 04/12/25 20:43 Dose: 12.5 mg Documented By: CAROLINA Naloxone HCl (Naloxone Hcl 0.4 Mg/Ml Vial) 0.04 mg IVPUSH Q5M PRN PRN Reason: Excessive sedation or RR < 8 Nystatin (Nystatin Powder 15 Gm Bottle) 1 appl TOPICAL BID [facility]; Protocol Last Admin: 04/12/25 21:00 Dose: 1 appl Documented By: CAROLINA Omeprazole (Omeprazole/Na Bicarb Oral Susp 20 Mg/10 Ml Ud Cup) 20 mg G-TUBE DAILY@0630 [facility] Last Admin: 04/13/25 05:32 Dose: Not Given Documented By: CAROLINA Non-Admin Reason: Patient Refused Perphenazine (Perphenazine 2 Mg Tablet) 2 mg PO BID [facility] Last Admin: 04/12/25 20:42 Dose: 2 mg Documented By: CAROLINA Perphenazine (Perphenazine 4 Mg Tablet) 4 mg PO BID [facility] Last Admin: 04/12/25 20:43 Dose: 4 mg Documented By: CAROLINA Senna (Sennosides 8.6 Mg Tablet) 8.6 mg PO DAILY [facility] Last Admin: 04/12/25 09:23 Dose: 8.6 mg Documented By: SUZIE Sodium Biphosphate/Sodium Phosphate (Sodium Phosphate,[place]-Dibasic 133 Ml Enema) 133 ml [place] DAILY PRN PRN Reason: Constipation Last Admin: 03/11/25 12:18 Dose: 133 ml Documented By: STEPHANE Sodium Chloride (0.9 % Sodium Chloride Flush 3 Ml Syringe) 3 ml IVFLUSH QSHIFT [facility] Last Admin: 04/12/25 20:44 Dose: 3 ml Documented By: CAROLINA Trazodone HCl (Trazodone Hcl 50 Mg Tablet) 50 mg PO BEDTIME MRX1 PRN PRN Reason: Insomnia Last Admin: 04/12/25 20:43 Dose: 50 mg Documented By: CAROLINA Valproic Acid (Valproic Acid 250 Mg Capsule) 500 mg PO BID [facility] Last Admin: 04/12/25 20:42 Dose: 500 mg Documented By: CAROLINA Labs 03/25/25 09:38 04/01/25 08:23 Labs: Laboratory Results - last 24 hr 04/12/25 04/12/25 04/12/25 07:50 11:19 16:15 POC Glucose 130 H 212 H 122 H 04/12/25 04/13/25 20:21 07:31 POC Glucose 160 H 144 H Assessment and Plan (1) Schizoaffective disorder: Status: Acute Plan 69-year-old male with a history of schizoaffective disorder (with psychotic features), major depressive disorder, diabetes, and GERD presented to the ED on 02/14/2025 after multiple falls. He was admitted for acute multifactorial encephalopathy, which was complicated by acute hypoxic respiratory failure secondary to aspiration pneumonia on 02/16/2025. Essentially no new issues, reamins confused at baseline Acute toxic/metabolic encephalopathyAcute hypoxic respiratory failure d/t Aspiration pneumonia Completed IV Unasyn; blood cultures negative. Weaned off supplemental oxygen, currently maintaining goal saturation of 95%. Aspiration precautions in place. Dysphagia: Evaluated by speech and swallow; recommended nectar-thickened liquids. Initially had poor oral intake and required TPN. Underwent G-tube placement on 03/02/2025. Tube feeds are being held while he is able to eat orally. Currently tolerating oral intake with NDD2 diet and nectar-thickened liquids. Psychiatric History: Schizoaffective disorder with psychotic features: Intermittent refusal of psychiatric medications and vital sign monitoring. Continue current regimen: fluoxetine, perphenazine (Trilafon), valproic acid (Depakote), clozapine (Clozaril), and valium. Psych follow-up as needed. Other Medical Issues: Diabetes, uncontrolled: continue Lantus 30 units; continue sliding scale insulin. Hypertension: No current management; blood pressure within normal limits. Summary: Patient is recovering from aspiration pneumonia and acute encephalopathy, now tolerating oral intake with dietary modifications. Psychiatric and medical management ongoing and need placement Routine labs 03/25/25 cbc, bmp unremarkable [facility] - VTE: Enoxaparin - CODE STATUS: Full code - DIET: NDD2 and [place] thick - DISPOSITION: Pending placement Quality Stroke Does the patient have a stroke diagnosis?: No VTE Prior VTE?: No VTE Risk Level:: Medical - moderate - high VTE Device Contraindication: Treatment Not Indicated VTE Drug Contraindication: N/A - Med Ordered
[2025-04-13] MEDS: Metoprolol Tartrate 12.5 MG HALFTAB PO ×2 (09:01→21:30)
[2025-04-13] MEDS: 0.9 % Sodium Chloride Flush 3 ML SYRINGE IVFLUSH ×3 (09:10→21:30)
[2025-04-13 11:40] LABS: Glucose, Whole Blood 181 mg/dL (60-115)
[2025-04-13 15:37] VITALS: BP 156/80; PULSE 79; RESP 14; TEMP 36.2; O2SAT 98
--- NOTE | 2025-04-13 16:02 | MHC.CM.PN ---
EMR REVIEWED AND PER MD ROUNDS, PT REMAINS MEDICALLY CLEARED. SIVA/TAMI COMMONS FOLLOWING BUT NEED CONFIRMATION ON MH DOCUMENTS/CONVERSION TO MH STD. CM CONTINUING TO FOLLOW FOR PLAN.
[2025-04-13 16:21] LABS: Glucose, Whole Blood 133 mg/dL (60-115)
--- NOTE | 2025-04-13 18:27 | PC.NURSE ---
Patient have been cooperative and pleasant, needed a little prompt to take his meds but took them. Pt. have been calling this Nurse by her name and said thank you multiple times.
[2025-04-13 19:36] VITALS: BP 148/81; PULSE 77; RESP 18; TEMP 36; O2SAT 100
[2025-04-13 20:08] LABS: Glucose, Whole Blood 94 mg/dL (60-115)
[2025-04-14 03:40] VITALS: BP 116/70; PULSE 67; RESP 18; TEMP 36.1; O2SAT 97
--- NOTE | 2025-04-14 05:21 | PC.NURSE ---
pt calm and cooperative majority of night. up to bedside commode twice. agreeable to most medications crushed in ice cream.
[2025-04-14] MEDS: Omeprazole/Na Bicarb Oral Susp 20 MG/10 ML UD Cup G-TUBE (05:51)
[2025-04-14 07:16] VITALS: BP 118/60; PULSE 56; TEMP 36.3; O2SAT 97
[2025-04-14 07:28] LABS: Glucose, Whole Blood 111 mg/dL (60-115)
--- NOTE | 2025-04-14 09:15 | PC.NURSE ---
Patient laying in bed with covers over head, nurse asked patient about bringing in his medications and he said not right now , patient's breakfast at bedside table and nursing asked patient if he wants breakfast and he said not right now .
--- NOTE | 2025-04-14 09:24 | HO.PM.IMPN ---
Subjective Subjective Date of Service: 04/14/25 Interval History: no new complaints Review of Systems Review of Systems: Yes all other systems are reviewed and are negative Physical Exam Exam: Exam: General: Alert but confused at baseline, no acute distress Resp: CTA bilateral CVS: S1,S2,RRR GI: +BS, NT, no distention Skin: No rash Neuro: motor grossly intact Psych: appropriate affect Vital Signs: Vital Signs: Last Vital Signs Temp 97.3 F 04/14/25 07:16 Pulse 56 04/14/25 07:16 Resp 18 04/14/25 03:40 BP 118/60 04/14/25 07:16 Pulse Ox 97 04/14/25 07:16 O2 Del Method Room Air 04/14/25 07:16 O2 Flow Rate 3 03/07/25 23:35 BMI result Body Mass Index 23.3 Objective Data Active Medications Acetaminophen (Acetaminophen 325 Mg Tablet) 650 mg PO Q6H PRN PRN Reason: Headache/Pain, Scale 1-10 Al Hydroxide/Mg Hydroxide (Magnesium Hydrox/Alum Hydrox 30 Ml Oral.Susp) 30 ml PO Q6H PRN PRN Reason: Heartburn/Nausea Last Admin: 03/20/25 15:11 Dose: 30 ml Documented By: GRAZMELISSA Calcium Carbonate (Calcium Carbonate 750 Mg Tab.Chew) 750 mg PO Q4H PRN PRN Reason: Heartburn Clozapine (Clozapine 25 Mg Tablet) 50 mg PO TID [facility] Last Admin: 04/13/25 21:30 Dose: 50 mg Documented By: RAMIRO Dextrose (Dextrose 50 % 25 Gm/50 Ml Syringe) 25 gm IVPUSH Q15M PRN; Protocol PRN Reason: per Hypoglycemia Standing Ord. Docusate Sodium (Docusate Sodium 100 Mg/10 Ml Liquid) 100 mg G-TUBE BID [facility] Last Admin: 04/13/25 21:43 Dose: Not Given Documented By: RAMIRO Non-Admin Reason: Patient Refused Enoxaparin Sodium (Enoxaparin Sodium 40 Mg/0.4 Ml Syringe) 40 mg SUBCUT Q24H [facility] Last Admin: 04/13/25 09:08 Dose: 40 mg Documented By: VANESSA Fluoxetine HCl (Fluoxetine Hcl 20 Mg Capsule) 40 mg PO BEDTIME [facility] On Hold: 02/22/25 14:23 Last Admin: 02/21/25 22:23 Dose: Not Given Documented By: PAPITO Non-Admin Reason: pt refused Glucagon (Glucagon Hcl 1 Mg Vial) 1 mg IM Q20M PRN PRN Reason: low BG Glucose (Glucose Gel 15 Gm Gel..Gram.) 15 gm PO Q15M PRN; Protocol PRN Reason: per Hypoglycemia Standing Ord. Hydralazine HCl (Hydralazine Hcl 20 Mg/Ml Vial) 5 mg IVPUSH Q6H PRN; Protocol PRN Reason: htn Last Admin: 02/23/25 17:30 Dose: 5 mg Documented By: JAYME Insulin Glargine (Insulin Glargine,Hum.Rec.Anlog 100 Unit/Ml 10 Ml Vial) 30 unit SUBCUT DAILY [facility] On Hold: 03/14/25 09:00 Insulin Human Lispro (Insulin Lispro 100 Unit/Ml 3 Ml Vial) 0 unit SUBCUT QIDACHS [facility]; Protocol Last Admin: 04/14/25 07:59 Dose: Not Given Documented By: OTTONIEL Non-Admin Reason: No Insulin Coverage Magnesium Hydroxide (Milk Of Magnesia 30 Ml Oral.Susp) 30 ml PO DAILY PRN PRN Reason: Constipation Last Admin: 04/12/25 20:43 Dose: 30 ml Documented By: CAROLINA Melatonin (Melatonin 3 Mg Tablet) 6 mg PO BEDTIME PRN PRN Reason: Insomnia Last Admin: 04/13/25 21:29 Dose: 6 mg Documented By: RAMIRO Metoprolol Tartrate (Metoprolol Tartrate 12.5 Mg Halftab) 12.5 mg PO BID [facility]; Protocol Last Admin: 04/13/25 21:30 Dose: 12.5 mg Documented By: RAMIRO Comments: BP 151/70 Naloxone HCl (Naloxone Hcl 0.4 Mg/Ml Vial) 0.04 mg IVPUSH Q5M PRN PRN Reason: Excessive sedation or RR < 8 Nystatin (Nystatin Powder 15 Gm Bottle) 1 appl TOPICAL BID [facility]; Protocol Last Admin: 04/13/25 22:32 Dose: Not Given Documented By: RAMIRO Non-Admin Reason: Patient Refused Omeprazole (Omeprazole/Na Bicarb Oral Susp 20 Mg/10 Ml Ud Cup) 20 mg G-TUBE DAILY@0630 [facility] Last Admin: 04/14/25 05:51 Dose: 20 mg Documented By: RAMIRO Perphenazine (Perphenazine 2 Mg Tablet) 2 mg PO BID [facility] Last Admin: 04/13/25 21:30 Dose: 2 mg Documented By: RAMIRO Perphenazine (Perphenazine 4 Mg Tablet) 4 mg PO BID [facility] Last Admin: 04/13/25 21:30 Dose: 4 mg Documented By: RAMIRO Senna (Sennosides 8.6 Mg Tablet) 8.6 mg PO DAILY [facility] Last Admin: 04/13/25 09:02 Dose: 8.6 mg Documented By: VANESSA Sodium Biphosphate/Sodium Phosphate (Sodium Phosphate,[place]-Dibasic 133 Ml Enema) 133 ml [place] DAILY PRN PRN Reason: Constipation Last Admin: 03/11/25 12:18 Dose: 133 ml Documented By: STEPHANE Sodium Chloride (0.9 % Sodium Chloride Flush 3 Ml Syringe) 3 ml IVFLUSH QSHIFT [facility] Last Admin: 04/13/25 21:30 Dose: 3 ml Documented By: RAMIRO Trazodone HCl (Trazodone Hcl 50 Mg Tablet) 50 mg PO BEDTIME MRX1 PRN PRN Reason: Insomnia Last Admin: 04/13/25 21:30 Dose: 50 mg Documented By: RAMIRO Valproic Acid (Valproic Acid 250 Mg Capsule) 500 mg PO BID [facility] Last Admin: 04/13/25 21:29 Dose: 500 mg Documented By: RAMIRO Labs 03/25/25 09:38 04/01/25 08:23 Labs: Laboratory Results - last 24 hr 04/13/25 04/13/25 04/13/25 11:23 16:15 20:05 POC Glucose 181 H 133 H 94 04/14/25 07:18 POC Glucose 111 Assessment and Plan (1) Schizoaffective disorder: Status: Acute Plan 69-year-old male with a history of schizoaffective disorder (with psychotic features), major depressive disorder, diabetes, and GERD presented to the ED on 02/14/2025 after multiple falls. He was admitted for acute multifactorial encephalopathy, which was complicated by acute hypoxic respiratory failure secondary to aspiration pneumonia on 02/16/2025. Essentially no new issues, reamins confused at baseline Acute toxic/metabolic encephalopathyAcute hypoxic respiratory failure d/t Aspiration pneumonia Completed IV Unasyn; blood cultures negative. Weaned off supplemental oxygen, currently maintaining goal saturation of 95%. Aspiration precautions in place. Dysphagia: Evaluated by speech and swallow; recommended nectar-thickened liquids. Initially had poor oral intake and required TPN. Underwent G-tube placement on 03/02/2025. Tube feeds are being held while he is able to eat orally. Currently tolerating oral intake with NDD2 diet and nectar-thickened liquids. Psychiatric History: Schizoaffective disorder with psychotic features: Intermittent refusal of psychiatric medications and vital sign monitoring. Continue current regimen: fluoxetine, perphenazine (Trilafon), valproic acid (Depakote), clozapine (Clozaril), and valium. Psych follow-up as needed. Other Medical Issues: Diabetes, uncontrolled: continue Lantus 30 units; continue sliding scale insulin. Hypertension: No current management; blood pressure within normal limits. Summary: Patient is recovering from aspiration pneumonia and acute encephalopathy, now tolerating oral intake with dietary modifications. Psychiatric and medical management ongoing and need placement Routine labs 03/25/25 cbc, bmp unremarkable QUALITY [facility]RICS - VTE: Enoxaparin - CODE STATUS: Full code - DIET: NDD2 and [place] thick - DISPOSITION: Pending placement Quality Stroke Does the patient have a stroke diagnosis?: No VTE Prior VTE?: No VTE Risk Level:: Medical - moderate - high VTE Device Contraindication: Treatment Not Indicated VTE Drug Contraindication: N/A - Med Ordered
--- NOTE | 2025-04-14 09:27 | MHC.CM.PN ---
electronic medical record reviwed, updates for (medications, hospitalist note and nurses note sent to latoya betancur and john lange
[2025-04-14 10:11] VITALS: RESP 18
--- NOTE | 2025-04-14 10:19 | PC.NURSE ---
Patient in bed with eyes closed, unlabored breathing. Nursing went in attempted to wake up patient, patient opened eyes, when nursing asked how he was doing patient responded not well, I don't want to talk about it . Patient immediately closed eyes again with unlabored breathing. Fall precautions in place.
--- NOTE | 2025-04-14 10:27 | MHC.CM.PN ---
Telephone call to [facility], i spoke with Merary in the business office , she reported that they were still awaiting the patients conservator to obtain needed bank statements,she reported she e-mailed coserator requesting these as soon as possible.
[2025-04-14] MEDS: Metoprolol Tartrate 12.5 MG HALFTAB PO ×2 (11:09→20:51)
[2025-04-14 11:10] VITALS: BP 146/83; PULSE 76
--- NOTE | 2025-04-14 11:21 | PC.NURSE ---
Patient woke up, very pleasant, compliant, conversing appropriately. Took medications with no issues and sat up eating breakfast.
[2025-04-14 11:46] LABS: Glucose, Whole Blood 130 mg/dL (60-115)
--- NOTE | 2025-04-14 14:38 | MHC.CM.PN ---
This marketing copywriter sent the following email to state discharge support: Afternoon Marylouise,? Reaching out to let you know that Santy is still here with us @ [facility]. The biggest barrier to his discharge is the incomplete [facility] application- this was started prior to his arrival to [facility]. Without this complete we have no ability to locate an accepting facility. [facility] is managing the completion of this application. The last update was they are waiting on 1 additional document from the guardian.? The patient has been in behavioral control. I'd like to see if with your support we can try to get [facility] to take him back while the [facility] is sorted.? Let me know your thoughts.? Lor
[2025-04-14 15:59] VITALS: BP 133/65; PULSE 69; RESP 19; TEMP 36.2; O2SAT 95
[2025-04-14 16:18] LABS: Glucose, Whole Blood 155 mg/dL (60-115)
[2025-04-14 19:23] VITALS: BP 139/67; PULSE 73; RESP 18; TEMP 36.8; O2SAT 98
[2025-04-14 20:24] LABS: Glucose, Whole Blood 192 mg/dL (60-115)
[2025-04-14] MEDS: 0.9 % Sodium Chloride Flush 3 ML SYRINGE IVFLUSH (20:48)
--- NOTE | 2025-04-15 02:11 | PC.NURSE ---
pt pleasant and cooperative with medication administration and care/assessments. pt slept good portion of night.
[2025-04-15 03:55] VITALS: BP 107/56; PULSE 60; RESP 18; TEMP 36.1; O2SAT 96
[2025-04-15] MEDS: Omeprazole/Na Bicarb Oral Susp 20 MG/10 ML UD Cup G-TUBE (06:12)
[2025-04-15 07:27] VITALS: BP 120/56; PULSE 60; RESP 16; TEMP 36; O2SAT 98
[2025-04-15 07:33] LABS: Glucose, Whole Blood 161 mg/dL (60-115)
[2025-04-15] MEDS: Metoprolol Tartrate 12.5 MG HALFTAB PO ×2 (08:07→21:23)
[2025-04-15] MEDS: 0.9 % Sodium Chloride Flush 3 ML SYRINGE IVFLUSH ×2 (08:08→16:40)
--- NOTE | 2025-04-15 11:41 | MHC.CM.PN ---
Electrronic medical record reviewed , updates ( md progress notes, nurses notes, labs, and medications ) sent to latoya betancur and john lange.
[2025-04-15 11:45] LABS: Glucose, Whole Blood 161 mg/dL (60-115)
[2025-04-15 15:34] VITALS: BP 157/68; PULSE 65; RESP 19; TEMP 36.2; O2SAT 100
--- NOTE | 2025-04-15 15:55 | PC.NURSE ---
Patient pleasant during shift and compliant with care, assessments and medication administration. Patient using call denny and appropriately communicating with staff.
[2025-04-15 16:11] LABS: Glucose, Whole Blood 127 mg/dL (60-115)
--- NOTE | 2025-04-15 16:34 | P.PNIM_ITS ---
Subjective Subjective Date of Service: 04/15/25 Interval History: no new complaints Review of Systems Review of Systems: Yes all other systems are reviewed and are negative Physical Exam 2 Exam: Exam: General: Alert but confused at baseline, no acute distress Resp: CTA bilateral CVS: S1,S2,RRR GI: +BS, NT, no distention Skin: No rash Neuro: motor grossly intact Psych: appropriate affect Vital Signs: Vital Signs: Last Vital Signs Temp 97.1 F 04/15/25 15:34 Pulse 65 04/15/25 15:34 Resp 19 04/15/25 15:34 BP 157/68 H 04/15/25 15:34 Pulse Ox 100 04/15/25 15:34 O2 Del Method Room Air 04/15/25 15:34 O2 Flow Rate 3 03/07/25 23:35 BMI result Body Mass Index 23.3 Objective Data Active Medications Acetaminophen (Acetaminophen 325 Mg Tablet) 650 mg PO Q6H PRN PRN Reason: Headache/Pain, Scale 1-10 Al Hydroxide/Mg Hydroxide (Magnesium Hydrox/Alum Hydrox 30 Ml Oral.Susp) 30 ml PO Q6H PRN PRN Reason: Heartburn/Nausea Last Admin: 03/20/25 15:11 Dose: 30 ml Documented By: KERRI Calcium Carbonate (Calcium Carbonate 750 Mg Tab.Chew) 750 mg PO Q4H PRN PRN Reason: Heartburn Clozapine (Clozapine 25 Mg Tablet) 50 mg PO TID [facility] Last Admin: 04/15/25 08:07 Dose: 50 mg Documented By: OTTONIEL Dextrose (Dextrose 50 % 25 Gm/50 Ml Syringe) 25 gm IVPUSH Q15M PRN; Protocol PRN Reason: per Hypoglycemia Standing Ord. Docusate Sodium (Docusate Sodium 100 Mg/10 Ml Liquid) 100 mg G-TUBE BID [facility] Last Admin: 04/15/25 10:06 Dose: Not Given Documented By: OTTONIEL Non-Admin Reason: Patient Refused Enoxaparin Sodium (Enoxaparin Sodium 40 Mg/0.4 Ml Syringe) 40 mg SUBCUT Q24H [facility] Last Admin: 04/15/25 12:21 Dose: 40 mg Documented By: OTTONIEL Fluoxetine HCl (Fluoxetine Hcl 20 Mg Capsule) 40 mg PO BEDTIME NATE On Hold: 02/22/25 14:23 Last Admin: 02/21/25 22:23 Dose: Not Given Documented By: PAPITO Non-Admin Reason: pt refused Glucagon (Glucagon Hcl 1 Mg Vial) 1 mg IM Q20M PRN PRN Reason: low BG Glucose (Glucose Gel 15 Gm Gel..Gram.) 15 gm PO Q15M PRN; Protocol PRN Reason: per Hypoglycemia Standing Ord. Hydralazine HCl (Hydralazine Hcl 20 Mg/Ml Vial) 5 mg IVPUSH Q6H PRN; Protocol PRN Reason: htn Last Admin: 02/23/25 17:30 Dose: 5 mg Documented By: JAYME Insulin Glargine (Insulin Glargine,Hum.Rec.Anlog 100 Unit/Ml 10 Ml Vial) 30 unit SUBCUT DAILY [facility] On Hold: 03/14/25 09:00 Insulin Human Lispro (Insulin Lispro 100 Unit/Ml 3 Ml Vial) 0 unit SUBCUT QIDACHS [facility]; Protocol Last Admin: 04/15/25 16:14 Dose: Not Given Documented By: OTTONIEL Non-Admin Reason: No Insulin Coverage Magnesium Hydroxide (Milk Of Magnesia 30 Ml Oral.Susp) 30 ml PO DAILY PRN PRN Reason: Constipation Last Admin: 04/12/25 20:43 Dose: 30 ml Documented By: CAROLINA Melatonin (Melatonin 3 Mg Tablet) 6 mg PO BEDTIME PRN PRN Reason: Insomnia Last Admin: 04/14/25 20:47 Dose: 6 mg Documented By: RAMIRO Metoprolol Tartrate (Metoprolol Tartrate 12.5 Mg Halftab) 12.5 mg PO BID [facility]; Protocol Last Admin: 04/15/25 08:07 Dose: 12.5 mg Documented By: OTTONIEL Naloxone HCl (Naloxone Hcl 0.4 Mg/Ml Vial) 0.04 mg IVPUSH Q5M PRN PRN Reason: Excessive sedation or RR < 8 Nystatin (Nystatin Powder 15 Gm Bottle) 1 appl TOPICAL BID [facility]; Protocol Last Admin: 04/15/25 12:26 Dose: Not Given Documented By: OTTONIEL Non-Admin Reason: Patient Refused Omeprazole (Omeprazole/Na Bicarb Oral Susp 20 Mg/10 Ml Ud Cup) 20 mg G-TUBE DAILY@0630 [facility] Last Admin: 04/15/25 06:12 Dose: 20 mg Documented By: RAMIRO Perphenazine (Perphenazine 2 Mg Tablet) 2 mg PO BID [facility] Last Admin: 04/15/25 08:07 Dose: 2 mg Documented By: OTTONIEL Perphenazine (Perphenazine 4 Mg Tablet) 4 mg PO BID [facility] Last Admin: 04/15/25 08:07 Dose: 4 mg Documented By: OTTONIEL Senna (Sennosides 8.6 Mg Tablet) 8.6 mg PO DAILY [facility] Last Admin: 04/15/25 08:07 Dose: 8.6 mg Documented By: OTTONIEL Sodium Biphosphate/Sodium Phosphate (Sodium Phosphate,[place]-Dibasic 133 Ml Enema) 133 ml [place] DAILY PRN PRN Reason: Constipation Last Admin: 03/11/25 12:18 Dose: 133 ml Documented By: STEPHANE Sodium Chloride (0.9 % Sodium Chloride Flush 3 Ml Syringe) 3 ml IVFLUSH QSHIFT [facility] Last Admin: 04/15/25 08:08 Dose: 3 ml Documented By: OTTONIEL Trazodone HCl (Trazodone Hcl 50 Mg Tablet) 50 mg PO BEDTIME MRX1 PRN PRN Reason: Insomnia Last Admin: 04/14/25 20:47 Dose: 50 mg Documented By: RAMIRO Valproic Acid (Valproic Acid 250 Mg Capsule) 500 mg PO BID [facility] Last Admin: 04/15/25 08:07 Dose: 500 mg Documented By: OTTONIEL Labs 03/25/25 09:38 04/01/25 08:23 Labs: Laboratory Results - last 24 hr 04/14/25 04/15/25 04/15/25 20:19 07:27 11:35 POC Glucose 192 H 161 H 161 H 04/15/25 16:05 POC Glucose 127 H Assessment and Plan (1) Schizoaffective disorder: Status: Acute Plan 69-year-old male with a history of schizoaffective disorder (with psychotic features), major depressive disorder, diabetes, and GERD presented to the ED on 02/14/2025 after multiple falls. He was admitted for acute multifactorial encephalopathy, which was complicated by acute hypoxic respiratory failure secondary to aspiration pneumonia on 02/16/2025. Essentially no new issues, reamins confused at baseline Acute toxic/metabolic encephalopathyAcute hypoxic respiratory failure d/t Aspiration pneumonia Completed IV Unasyn; blood cultures negative. Weaned off supplemental oxygen, currently maintaining goal saturation of 95%. Aspiration precautions in place. Dysphagia: Evaluated by speech and swallow; recommended nectar-thickened liquids. Initially had poor oral intake and required TPN. Underwent G-tube placement on 03/02/2025. Tube feeds are being held while he is able to eat orally. Currently tolerating oral intake with NDD2 diet and nectar-thickened liquids. Psychiatric History: Schizoaffective disorder with psychotic features: Intermittent refusal of psychiatric medications and vital sign monitoring. Continue current regimen: fluoxetine, perphenazine (Trilafon), valproic acid (Depakote), clozapine (Clozaril), and valium. Psych follow-up as needed. Other Medical Issues: Diabetes, uncontrolled: continue Lantus 30 units; continue sliding scale insulin. Hypertension: No current management; blood pressure within normal limits. Summary: Patient is recovering from aspiration pneumonia and acute encephalopathy, now tolerating oral intake with dietary modifications. Psychiatric and medical management ongoing and need placement Routine labs 03/25/25 cbc, bmp unremarkable [facility] - VTE: Enoxaparin - CODE STATUS: Full code - DIET: NDD2 and [place] thick - DISPOSITION: Pending placement Quality Stroke Does the patient have a stroke diagnosis?: No VTE Prior VTE?: No VTE Risk Level:: Medical - moderate - high VTE Device Contraindication: Treatment Not Indicated VTE Drug Contraindication: N/A - Med Ordered
[2025-04-15 19:47] LABS: Glucose, Whole Blood 232 mg/dL (60-115)
[2025-04-15 19:50] VITALS: BP 120/58; PULSE 115; RESP 18; TEMP 36.3; O2SAT 99
[2025-04-16] MEDS: 0.9 % Sodium Chloride Flush 3 ML SYRINGE IVFLUSH ×4 (00:35→21:06)
[2025-04-16 03:56] VITALS: BP 128/60; PULSE 69; RESP 18; TEMP 36.3; O2SAT 98
[2025-04-16] MEDS: Omeprazole/Na Bicarb Oral Susp 20 MG/10 ML UD Cup G-TUBE (05:31)
[2025-04-16 07:48] LABS: Glucose, Whole Blood 156 mg/dL (60-115)
[2025-04-16 07:51] VITALS: BP 131/68; PULSE 62; RESP 18; TEMP 36.3; O2SAT 97
[2025-04-16] MEDS: Metoprolol Tartrate 12.5 MG HALFTAB PO ×2 (07:58→21:05)
--- NOTE | 2025-04-16 11:06 | HO.WOUND ---
Wound Consult: Follow up 69 yr old male [place] [facility] [place] - See progress notes and H&P for detailed history. Wound team following for right heel, coccyx and groin. Patient agreeable to assessment and photo documentation. Patient reports that he does not want foam dressing on coccyx - educated on purpose and patient still declines- per direct care team patient has been removing it. Educated patient on importance of position changes to prevent skin injury- patient agreeable. Right heel Etiology: previous stage 1 pressure injury - now intact pink and blanching Wound Bed: intact pink and blanching with surrounding thick dry peeling skin Drainage / Odor: none Coco wound: ? No Induration, Fluctuance or Warmth noted Pain: none Goals of Treatment: ? offloading with foams- routine hygiene with moisturizer Coccyx Etiology: intact blanchable redness Wound Bed: intact blanchable redness Drainage / Odor: none Coco wound: ? No Induration, Fluctuance or Warmth noted Pain: none Goals of Treatment: ? offloading/ barrier cream Recommendations: 1. Turn and Reposition every 2 hours and as needed for patient comfort. Use pillows or wedges to support off loading positions. 2. Off Load all bony prominences with use of pillows and heel boots if needed. Apply Preventative foams where needed. 3. Monitor for incontinence and moisture control, use barrier creams when needed for prevention and treatment. 4. Provide adequate and supplemental nutrition. 5. Order or Continue low air loss mattress. 6. When applicable maintain blood glucose levels per Providers order. Groin: gentle routine hygiene and incontinence care with pH balanced cleanser and bath wipes. antifungal medication per provider orders: apply a light dusting to prevent caking. apply triad paste BID and PRN. use disposable pads underneath patient when in chair or bed. use proactive toileting to promote continence. Bilateral heels: Elevate heels off of bed surface with pillows. Float heels off of pillows. Apply skin prep allow to dry. Apply heel foam dressings, peel back and assess Q shift and change every 5-7 days and PRN. Coccyx/buttocks: Off Load Pressure with Q2 hr turns and use of pillows - Cleanse with PH balance spray or wipes, pat dry. Apply foam dressing, change every 3 days, if patient agreeable. OR ?Apply thin layer of Triad to wound bed. Do not remove all of paste between applications as this may cause further skin damage, apply daily and PRN Re-consult wound care Nurse for wound deterioration or wound changes.
[2025-04-16 11:17] LABS: Glucose, Whole Blood 120 mg/dL (60-115)
--- NOTE | 2025-04-16 14:17 | MHC.CM.PN ---
LAVON SPOKE WITH JUSTUS AT [facility] WHO STATES THE [facility] WILL BE 04/20 2 CHECKS THAT WERE WRITTEN IN 2023 ARE UNACCOUNTED FOR. [facility] HAS OFFERED A BED ON THE BEHAVIORAL UNIT PENDING MH.
[2025-04-16 15:44] VITALS: BP 142/60; PULSE 74; RESP 19; TEMP 36.4; O2SAT 99
--- NOTE | 2025-04-16 15:56 | HO.PM.IMPN ---
Subjective Subjective Date of Service: 04/16/25 Interval History: no new complaints Review of Systems Review of Systems: Yes all other systems are reviewed and are negative Physical Exam Exam: Exam: General: Alert but confused at baseline, no acute distress Resp: CTA bilateral CVS: S1,S2,RRR GI: +BS, NT, no distention Skin: No rash Neuro: motor grossly intact Psych: appropriate affect Vital Signs: Vital Signs: Last Vital Signs Temp 97.6 F 04/16/25 15:44 Pulse 74 04/16/25 15:44 Resp 19 04/16/25 15:44 BP 142/60 H 04/16/25 15:44 Pulse Ox 99 04/16/25 15:44 O2 Del Method Room Air 04/16/25 15:44 O2 Flow Rate 3 03/07/25 23:35 BMI result Body Mass Index 23.3 Objective Data Active Medications Acetaminophen (Acetaminophen 325 Mg Tablet) 650 mg PO Q6H PRN PRN Reason: Headache/Pain, Scale 1-10 Al Hydroxide/Mg Hydroxide (Magnesium Hydrox/Alum Hydrox 30 Ml Oral.Susp) 30 ml PO Q6H PRN PRN Reason: Heartburn/Nausea Last Admin: 03/20/25 15:11 Dose: 30 ml Documented By: KERRI Calcium Carbonate (Calcium Carbonate 750 Mg Tab.Chew) 750 mg PO Q4H PRN PRN Reason: Heartburn Clozapine (Clozapine 25 Mg Tablet) 50 mg PO TID [facility] Last Admin: 04/16/25 07:58 Dose: 50 mg Documented By: SUZIE Dextrose (Dextrose 50 % 25 Gm/50 Ml Syringe) 25 gm IVPUSH Q15M PRN; Protocol PRN Reason: per Hypoglycemia Standing Ord. Docusate Sodium (Docusate Sodium 100 Mg/10 Ml Liquid) 100 mg G-TUBE BID [facility] Last Admin: 04/16/25 07:59 Dose: Not Given Documented By: SUZIE Non-Admin Reason: Patient Refused Enoxaparin Sodium (Enoxaparin Sodium 40 Mg/0.4 Ml Syringe) 40 mg SUBCUT Q24H [facility] Last Admin: 04/16/25 07:59 Dose: 40 mg Documented By: SUZIE Fluoxetine HCl (Fluoxetine Hcl 20 Mg Capsule) 40 mg PO BEDTIME NATE On Hold: 02/22/25 14:23 Last Admin: 02/21/25 22:23 Dose: Not Given Documented By: PAPITO Non-Admin Reason: pt refused Glucagon (Glucagon Hcl 1 Mg Vial) 1 mg IM Q20M PRN PRN Reason: low BG Glucose (Glucose Gel 15 Gm Gel..Gram.) 15 gm PO Q15M PRN; Protocol PRN Reason: per Hypoglycemia Standing Ord. Hydralazine HCl (Hydralazine Hcl 20 Mg/Ml Vial) 5 mg IVPUSH Q6H PRN; Protocol PRN Reason: htn Last Admin: 02/23/25 17:30 Dose: 5 mg Documented By: JAYME Insulin Glargine (Insulin Glargine,Hum.Rec.Anlog 100 Unit/Ml 10 Ml Vial) 30 unit SUBCUT DAILY [facility] On Hold: 03/14/25 09:00 Insulin Human Lispro (Insulin Lispro 100 Unit/Ml 3 Ml Vial) 0 unit SUBCUT QIDACHS [facility]; Protocol Last Admin: 04/16/25 11:25 Dose: Not Given Documented By: SUZIE Non-Admin Reason: No Insulin Coverage Magnesium Hydroxide (Milk Of Magnesia 30 Ml Oral.Susp) 30 ml PO DAILY PRN PRN Reason: Constipation Last Admin: 04/12/25 20:43 Dose: 30 ml Documented By: CAROLINA Melatonin (Melatonin 3 Mg Tablet) 6 mg PO BEDTIME PRN PRN Reason: Insomnia Last Admin: 04/14/25 20:47 Dose: 6 mg Documented By: RAMIRO Metoprolol Tartrate (Metoprolol Tartrate 12.5 Mg Halftab) 12.5 mg PO BID [facility]; Protocol Last Admin: 04/16/25 07:58 Dose: 12.5 mg Documented By: SUZIE Naloxone HCl (Naloxone Hcl 0.4 Mg/Ml Vial) 0.04 mg IVPUSH Q5M PRN PRN Reason: Excessive sedation or RR < 8 Nystatin (Nystatin Powder 15 Gm Bottle) 1 appl TOPICAL BID [facility]; Protocol Last Admin: 04/16/25 08:00 Dose: 1 appl Documented By: SUZIE Omeprazole (Omeprazole/Na Bicarb Oral Susp 20 Mg/10 Ml Ud Cup) 20 mg G-TUBE DAILY@0630 [facility] Last Admin: 04/16/25 05:31 Dose: 20 mg Documented By: ANDRADE Perphenazine (Perphenazine 2 Mg Tablet) 2 mg PO BID [facility] Last Admin: 04/16/25 07:59 Dose: 2 mg Documented By: SUZIE Perphenazine (Perphenazine 4 Mg Tablet) 4 mg PO BID [facility] Last Admin: 04/16/25 07:58 Dose: 4 mg Documented By: SUZIE Senna (Sennosides 8.6 Mg Tablet) 8.6 mg PO DAILY [facility] Last Admin: 04/16/25 07:58 Dose: 8.6 mg Documented By: SUZIE Sodium Biphosphate/Sodium Phosphate (Sodium Phosphate,[place]-Dibasic 133 Ml Enema) 133 ml [place] DAILY PRN PRN Reason: Constipation Last Admin: 03/11/25 12:18 Dose: 133 ml Documented By: STEPHANE Sodium Chloride (0.9 % Sodium Chloride Flush 3 Ml Syringe) 3 ml IVFLUSH QSHIFT [facility] Last Admin: 04/16/25 07:57 Dose: 3 ml Documented By: SUZIE Trazodone HCl (Trazodone Hcl 50 Mg Tablet) 50 mg PO BEDTIME MRX1 PRN PRN Reason: Insomnia Last Admin: 04/14/25 20:47 Dose: 50 mg Documented By: RAMIRO Valproic Acid (Valproic Acid 250 Mg Capsule) 500 mg PO BID [facility] Last Admin: 04/16/25 07:59 Dose: 500 mg Documented By: SUZIE Labs 03/25/25 09:38 04/01/25 08:23 Labs: Laboratory Results - last 24 hr 04/15/25 04/15/25 04/16/25 16:05 19:26 07:40 POC Glucose 127 H 232 H 156 H 04/16/25 11:13 POC Glucose 120 H Assessment and Plan (1) Schizoaffective disorder: Status: Acute Plan 69-year-old male with a history of schizoaffective disorder (with psychotic features), major depressive disorder, diabetes, and GERD presented to the ED on 02/14/2025 after multiple falls. He was admitted for acute multifactorial encephalopathy, which was complicated by acute hypoxic respiratory failure secondary to aspiration pneumonia on 02/16/2025. Essentially no new issues, reamins confused at baseline Acute toxic/metabolic encephalopathyAcute hypoxic respiratory failure d/t Aspiration pneumonia Completed IV Unasyn; blood cultures negative. Weaned off supplemental oxygen, currently maintaining goal saturation of 95%. Aspiration precautions in place. Dysphagia: Evaluated by speech and swallow; recommended nectar-thickened liquids. Initially had poor oral intake and required TPN. Underwent G-tube placement on 03/02/2025. Tube feeds are being held while he is able to eat orally. Currently tolerating oral intake with NDD2 diet and nectar-thickened liquids. Psychiatric History: Schizoaffective disorder with psychotic features: Intermittent refusal of psychiatric medications and vital sign monitoring. Continue current regimen: fluoxetine, perphenazine (Trilafon), valproic acid (Depakote), clozapine (Clozaril), and valium. Psych follow-up as needed. Other Medical Issues: Diabetes, uncontrolled: continue Lantus 30 units; continue sliding scale insulin. Hypertension: No current management; blood pressure within normal limits. Summary: Patient is recovering from aspiration pneumonia and acute encephalopathy, now tolerating oral intake with dietary modifications. Psychiatric and medical management ongoing and need placement Routine labs 03/25/25 cbc, bmp unremarkable [facility] - VTE: Enoxaparin - CODE STATUS: Full code - DIET: NDD2 and [place] thick - DISPOSITION: Pending placement Quality Stroke Does the patient have a stroke diagnosis?: No VTE Prior VTE?: No VTE Risk Level:: Medical - moderate - high VTE Device Contraindication: Treatment Not Indicated VTE Drug Contraindication: N/A - Med Ordered
[2025-04-16 16:18] LABS: Glucose, Whole Blood 197 mg/dL (60-115)
[2025-04-16 20:00] VITALS: BP 138/64; PULSE 80; RESP 19; TEMP 36.6; O2SAT 97
[2025-04-16 20:32] LABS: Glucose, Whole Blood 206 mg/dL (60-115)
[2025-04-17 03:24] VITALS: BP 131/63; PULSE 84; RESP 18; TEMP 36.8; O2SAT 96
--- NOTE | 2025-04-17 07:22 | HO.PM.IMPN ---
Subjective Subjective Date of Service: 04/17/25 Interval History: no new c/o. Review of Systems Review of Systems: Yes all other systems are reviewed and are negative Physical Exam Exam: Exam: General: Alert but confused at baseline, no acute distress Resp: CTA bilateral CVS: S1,S2,RRR GI: +BS, NT, no distention Skin: No rash Neuro: motor grossly intact Psych: appropriate affect Vital Signs: Vital Signs: Last Vital Signs Temp 98.2 F 04/17/25 03:24 Pulse 84 04/17/25 03:24 Resp 18 04/17/25 03:24 BP 131/63 04/17/25 03:24 Pulse Ox 96 04/17/25 03:24 O2 Del Method Room Air 04/17/25 03:24 O2 Flow Rate 3 03/07/25 23:35 BMI result Body Mass Index 23.3 Objective Data Active Medications Acetaminophen (Acetaminophen 325 Mg Tablet) 650 mg PO Q6H PRN PRN Reason: Headache/Pain, Scale 1-10 Al Hydroxide/Mg Hydroxide (Magnesium Hydrox/Alum Hydrox 30 Ml Oral.Susp) 30 ml PO Q6H PRN PRN Reason: Heartburn/Nausea Last Admin: 03/20/25 15:11 Dose: 30 ml Documented By: KERRI Calcium Carbonate (Calcium Carbonate 750 Mg Tab.Chew) 750 mg PO Q4H PRN PRN Reason: Heartburn Clozapine (Clozapine 25 Mg Tablet) 50 mg PO TID [facility] Last Admin: 04/16/25 21:05 Dose: 50 mg Documented By: MILVIA Dextrose (Dextrose 50 % 25 Gm/50 Ml Syringe) 25 gm IVPUSH Q15M PRN; Protocol PRN Reason: per Hypoglycemia Standing Ord. Docusate Sodium (Docusate Sodium 100 Mg/10 Ml Liquid) 100 mg G-TUBE BID [facility] Last Admin: 04/16/25 21:16 Dose: Not Given Documented By: MILVIA Non-Admin Reason: Patient Refused Enoxaparin Sodium (Enoxaparin Sodium 40 Mg/0.4 Ml Syringe) 40 mg SUBCUT Q24H [facility] Last Admin: 04/16/25 07:59 Dose: 40 mg Documented By: SUZIE Fluoxetine HCl (Fluoxetine Hcl 20 Mg Capsule) 40 mg PO BEDTIME [facility] On Hold: 02/22/25 14:23 Last Admin: 02/21/25 22:23 Dose: Not Given Documented By: PAPITO Non-Admin Reason: pt refused Glucagon (Glucagon Hcl 1 Mg Vial) 1 mg IM Q20M PRN PRN Reason: low BG Glucose (Glucose Gel 15 Gm Gel..Gram.) 15 gm PO Q15M PRN; Protocol PRN Reason: per Hypoglycemia Standing Ord. Hydralazine HCl (Hydralazine Hcl 20 Mg/Ml Vial) 5 mg IVPUSH Q6H PRN; Protocol PRN Reason: htn Last Admin: 02/23/25 17:30 Dose: 5 mg Documented By: JAYME Insulin Glargine (Insulin Glargine,Hum.Rec.Anlog 100 Unit/Ml 10 Ml Vial) 30 unit SUBCUT DAILY [facility] On Hold: 03/14/25 09:00 Insulin Human Lispro (Insulin Lispro 100 Unit/Ml 3 Ml Vial) 0 unit SUBCUT QIDACHS [facility]; Protocol Last Admin: 04/16/25 21:05 Dose: 4 unit Documented By: MILVIA Magnesium Hydroxide (Milk Of Magnesia 30 Ml Oral.Susp) 30 ml PO DAILY PRN PRN Reason: Constipation Last Admin: 04/12/25 20:43 Dose: 30 ml Documented By: CAROLINA Melatonin (Melatonin 3 Mg Tablet) 6 mg PO BEDTIME PRN PRN Reason: Insomnia Last Admin: 04/14/25 20:47 Dose: 6 mg Documented By: RAMIRO Metoprolol Tartrate (Metoprolol Tartrate 12.5 Mg Halftab) 12.5 mg PO BID [facility]; Protocol Last Admin: 04/16/25 21:05 Dose: 12.5 mg Documented By: MILVIA Naloxone HCl (Naloxone Hcl 0.4 Mg/Ml Vial) 0.04 mg IVPUSH Q5M PRN PRN Reason: Excessive sedation or RR < 8 Nystatin (Nystatin Powder 15 Gm Bottle) 1 appl TOPICAL BID [facility]; Protocol Last Admin: 04/16/25 21:17 Dose: Not Given Documented By: MILVIA Non-Admin Reason: Patient Refused Omeprazole (Omeprazole/Na Bicarb Oral Susp 20 Mg/10 Ml Ud Cup) 20 mg G-TUBE DAILY@0630 [facility] Last Admin: 04/17/25 05:43 Dose: Not Given Documented By: MILVIA Non-Admin Reason: Patient Refused Perphenazine (Perphenazine 2 Mg Tablet) 2 mg PO BID [facility] Last Admin: 04/16/25 21:06 Dose: 2 mg Documented By: MILVIA Perphenazine (Perphenazine 4 Mg Tablet) 4 mg PO BID [facility] Last Admin: 04/16/25 21:05 Dose: 4 mg Documented By: MILVIA Senna (Sennosides 8.6 Mg Tablet) 8.6 mg PO DAILY [facility] Last Admin: 04/16/25 07:58 Dose: 8.6 mg Documented By: SUZIE Sodium Biphosphate/Sodium Phosphate (Sodium Phosphate,[place]-Dibasic 133 Ml Enema) 133 ml [place] DAILY PRN PRN Reason: Constipation Last Admin: 03/11/25 12:18 Dose: 133 ml Documented By: STEPHANE Sodium Chloride (0.9 % Sodium Chloride Flush 3 Ml Syringe) 3 ml IVFLUSH QSHIFT [facility] Last Admin: 04/16/25 21:06 Dose: 3 ml Documented By: MILVIA Trazodone HCl (Trazodone Hcl 50 Mg Tablet) 50 mg PO BEDTIME MRX1 PRN PRN Reason: Insomnia Last Admin: 04/14/25 20:47 Dose: 50 mg Documented By: RAMIRO Valproic Acid (Valproic Acid 250 Mg Capsule) 500 mg PO BID [facility] Last Admin: 04/16/25 21:05 Dose: 500 mg Documented By: MILVIA Labs 03/25/25 09:38 04/01/25 08:23 Labs: Laboratory Results - last 24 hr 04/16/25 04/16/25 04/16/25 07:40 11:13 16:14 POC Glucose 156 H 120 H 197 H 04/16/25 20:28 POC Glucose 206 H Assessment and Plan (1) Schizoaffective disorder: Status: Acute Plan 69-year-old male with a history of schizoaffective disorder (with psychotic features), major depressive disorder, diabetes, and GERD presented to the ED on 02/14/2025 after multiple falls. He was admitted for acute multifactorial encephalopathy, which was complicated by acute hypoxic respiratory failure secondary to aspiration pneumonia on 02/16/2025. Essentially no new issues, reamins confused at baseline Acute toxic/metabolic encephalopathyAcute hypoxic respiratory failure d/t Aspiration pneumonia Completed IV Unasyn; blood cultures negative. Weaned off supplemental oxygen, currently maintaining goal saturation of 95%. Aspiration precautions in place. Dysphagia: Evaluated by speech and swallow; recommended nectar-thickened liquids. Initially had poor oral intake and required TPN. Underwent G-tube placement on 03/02/2025. Tube feeds are being held while he is able to eat orally. Currently tolerating oral intake with NDD2 diet and nectar-thickened liquids. Psychiatric History: Schizoaffective disorder with psychotic features: Intermittent refusal of psychiatric medications and vital sign monitoring. Continue current regimen: fluoxetine, perphenazine (Trilafon), valproic acid (Depakote), clozapine (Clozaril), and valium. Psych follow-up as needed. Other Medical Issues: Diabetes, uncontrolled: continue Lantus 30 units; continue sliding scale insulin. Hypertension: No current management; blood pressure within normal limits. Summary: Patient is recovering from aspiration pneumonia and acute encephalopathy, now tolerating oral intake with dietary modifications. Psychiatric and medical management ongoing and need placement Routine labs 03/25/25 cbc, bmp unremarkable [facility] - VTE: Enoxaparin - CODE STATUS: Full code - DIET: NDD2 and [place] thick - DISPOSITION: Pending placement Quality Stroke Does the patient have a stroke diagnosis?: No VTE Prior VTE?: No VTE Risk Level:: Medical - moderate - high VTE Device Contraindication: Treatment Not Indicated VTE Drug Contraindication: N/A - Med Ordered
[2025-04-17 07:35] LABS: Glucose, Whole Blood 162 mg/dL (60-115)
[2025-04-17 07:45] VITALS: BP 121/58; PULSE 94; RESP 16; TEMP 36.4; O2SAT 96
[2025-04-17] MEDS: Metoprolol Tartrate 12.5 MG HALFTAB PO ×2 (08:21→20:00)
[2025-04-17] MEDS: 0.9 % Sodium Chloride Flush 3 ML SYRINGE IVFLUSH ×3 (08:22→19:58)
--- NOTE | 2025-04-17 08:27 | MHC.CM.PN ---
[employer] WITH [employer] FOR UNACCOUNTED FOR CHECKS WRITTEN IN 2023 IS SCHEDULED FOR SUNDAY. [facility] IS OFFERING A BED ON THEIR [facility] ONCE IS APPROVED
--- NOTE | 2025-04-17 09:02 | PC.NURSE ---
Patient calm and cooperative with morning physical assessment. Patient took morning medications without any issues and allowed this nurse to flush PEG tube. PEG is patent and flushed without resistance. No reports of discomfort from the patient.
[2025-04-17 10:32] LABS: Neut%MD 76.0 %; WBCANC 5.5 X10*3/uL
[2025-04-17 11:37] LABS: Glucose, Whole Blood 223 mg/dL (60-115)
--- NOTE | 2025-04-17 13:17 | P.PNIM_ITS ---
Subjective Subjective Date of Service: 04/17/25 Physical Exam 2 Exam: Exam: General: Alert but confused at baseline, no acute distress Resp: CTA bilateral CVS: S1,S2,RRR GI: +BS, NT, no distention Skin: No rash Neuro: motor grossly intact Psych: appropriate affect Vital Signs: Vital Signs: Last Vital Signs Temp 97.5 F 04/17/25 07:45 Pulse 94 04/17/25 07:45 Resp 16 04/17/25 07:45 BP 121/58 L 04/17/25 07:45 Pulse Ox 96 04/17/25 07:45 O2 Del Method Room Air 04/17/25 07:45 O2 Flow Rate 3 03/07/25 23:35 BMI result Body Mass Index 23.3 Objective Data Active Medications Acetaminophen (Acetaminophen 325 Mg Tablet) 650 mg PO Q6H PRN PRN Reason: Headache/Pain, Scale 1-10 Al Hydroxide/Mg Hydroxide (Magnesium Hydrox/Alum Hydrox 30 Ml Oral.Susp) 30 ml PO Q6H PRN PRN Reason: Heartburn/Nausea Last Admin: 03/20/25 15:11 Dose: 30 ml Documented By: KERRI Calcium Carbonate (Calcium Carbonate 750 Mg Tab.Chew) 750 mg PO Q4H PRN PRN Reason: Heartburn Clozapine (Clozapine 25 Mg Tablet) 50 mg PO TID [facility] Last Admin: 04/17/25 08:22 Dose: 50 mg Documented By: REFUGIO Dextrose (Dextrose 50 % 25 Gm/50 Ml Syringe) 25 gm IVPUSH Q15M PRN; Protocol PRN Reason: per Hypoglycemia Standing Ord. Docusate Sodium (Docusate Sodium 100 Mg/10 Ml Liquid) 100 mg G-TUBE BID [facility] Last Admin: 04/17/25 08:23 Dose: Not Given Documented By: REFUGIO Non-Admin Reason: Patient Refused Enoxaparin Sodium (Enoxaparin Sodium 40 Mg/0.4 Ml Syringe) 40 mg SUBCUT Q24H [facility] Last Admin: 04/17/25 08:23 Dose: 40 mg Documented By: REFUGIO Fluoxetine HCl (Fluoxetine Hcl 20 Mg Capsule) 40 mg PO BEDTIME [facility] On Hold: 02/22/25 14:23 Last Admin: 02/21/25 22:23 Dose: Not Given Documented By: PAPITO Non-Admin Reason: pt refused Glucagon (Glucagon Hcl 1 Mg Vial) 1 mg IM Q20M PRN PRN Reason: low BG Glucose (Glucose Gel 15 Gm Gel..Gram.) 15 gm PO Q15M PRN; Protocol PRN Reason: per Hypoglycemia Standing Ord. Hydralazine HCl (Hydralazine Hcl 20 Mg/Ml Vial) 5 mg IVPUSH Q6H PRN; Protocol PRN Reason: htn Last Admin: 02/23/25 17:30 Dose: 5 mg Documented By: JAYME Insulin Glargine (Insulin Glargine,Hum.Rec.Anlog 100 Unit/Ml 10 Ml Vial) 30 unit SUBCUT DAILY [facility] On Hold: 03/14/25 09:00 Insulin Human Lispro (Insulin Lispro 100 Unit/Ml 3 Ml Vial) 0 unit SUBCUT QIDACHS [facility]; Protocol Last Admin: 04/17/25 11:54 Dose: 4 unit Documented By: REFUGIO Magnesium Hydroxide (Milk Of Magnesia 30 Ml Oral.Susp) 30 ml PO DAILY PRN PRN Reason: Constipation Last Admin: 04/12/25 20:43 Dose: 30 ml Documented By: CAROLINA Melatonin (Melatonin 3 Mg Tablet) 6 mg PO BEDTIME PRN PRN Reason: Insomnia Last Admin: 04/14/25 20:47 Dose: 6 mg Documented By: RAMIRO Metoprolol Tartrate (Metoprolol Tartrate 12.5 Mg Halftab) 12.5 mg PO BID [facility]; Protocol Last Admin: 04/17/25 08:21 Dose: 12.5 mg Documented By: REFUGIO Naloxone HCl (Naloxone Hcl 0.4 Mg/Ml Vial) 0.04 mg IVPUSH Q5M PRN PRN Reason: Excessive sedation or RR < 8 Nystatin (Nystatin Powder 15 Gm Bottle) 1 appl TOPICAL BID [facility]; Protocol Last Admin: 04/17/25 08:23 Dose: 1 appl Documented By: REFUGIO Omeprazole (Omeprazole/Na Bicarb Oral Susp 20 Mg/10 Ml Ud Cup) 20 mg G-TUBE DAILY@0630 [facility] Last Admin: 04/17/25 05:43 Dose: Not Given Documented By: MILVIA Non-Admin Reason: Patient Refused Perphenazine (Perphenazine 2 Mg Tablet) 2 mg PO BID [facility] Last Admin: 04/17/25 08:22 Dose: 2 mg Documented By: REFUGIO Perphenazine (Perphenazine 4 Mg Tablet) 4 mg PO BID [facility] Last Admin: 04/17/25 08:21 Dose: 4 mg Documented By: REFUGIO Senna (Sennosides 8.6 Mg Tablet) 8.6 mg PO DAILY [facility] Last Admin: 04/17/25 08:22 Dose: 8.6 mg Documented By: REFUGIO Sodium Biphosphate/Sodium Phosphate (Sodium Phosphate,[place]-Dibasic 133 Ml Enema) 133 ml [place] DAILY PRN PRN Reason: Constipation Last Admin: 03/11/25 12:18 Dose: 133 ml Documented By: STEPHANE Sodium Chloride (0.9 % Sodium Chloride Flush 3 Ml Syringe) 3 ml IVFLUSH QSHIFT [facility] Last Admin: 04/17/25 08:22 Dose: 3 ml Documented By: REFUGIO Trazodone HCl (Trazodone Hcl 50 Mg Tablet) 50 mg PO BEDTIME MRX1 PRN PRN Reason: Insomnia Last Admin: 04/14/25 20:47 Dose: 50 mg Documented By: RAMIRO Valproic Acid (Valproic Acid 250 Mg Capsule) 500 mg PO BID [facility] Last Admin: 04/17/25 08:22 Dose: 500 mg Documented By: REFUGIO Labs 03/25/25 09:38 04/01/25 08:23 Labs: Laboratory Results - last 24 hr 04/16/25 04/16/25 04/17/25 16:14 20:28 07:30 Absolute Neuts (auto) POC Glucose 197 H 206 H 162 H 04/17/25 04/17/25 10:22 11:31 Absolute Neuts (auto) 4.2 POC Glucose 223 H Assessment and Plan (1) Schizoaffective disorder: Status: Acute Plan 69-year-old male with a history of schizoaffective disorder (with psychotic features), major depressive disorder, diabetes, and GERD presented to the ED on 02/14/2025 after multiple falls. He was admitted for acute multifactorial encephalopathy, which was complicated by acute hypoxic respiratory failure secondary to aspiration pneumonia on 02/16/2025. Essentially no new issues, reamins confused at baseline Acute toxic/metabolic encephalopathyAcute hypoxic respiratory failure d/t Aspiration pneumonia Completed IV Unasyn; blood cultures negative. Weaned off supplemental oxygen, currently maintaining goal saturation of 95%. Aspiration precautions in place. Dysphagia: Evaluated by speech and swallow; recommended nectar-thickened liquids. Initially had poor oral intake and required TPN. Underwent G-tube placement on 03/02/2025. Tube feeds are being held while he is able to eat orally. Currently tolerating oral intake with NDD2 diet and nectar-thickened liquids. Psychiatric History: Schizoaffective disorder with psychotic features: Intermittent refusal of psychiatric medications and vital sign monitoring. Continue current regimen: fluoxetine, perphenazine (Trilafon), valproic acid (Depakote), clozapine (Clozaril), and valium. Psych follow-up as needed. Other Medical Issues: Diabetes, uncontrolled: continue Lantus 30 units; continue sliding scale insulin. Hypertension: No current management; blood pressure within normal limits. Summary: Patient is recovering from aspiration pneumonia and acute encephalopathy, now tolerating oral intake with dietary modifications. Psychiatric and medical management ongoing and need placement Routine labs 03/25/25 cbc, bmp unremarkable [facility] - VTE: Enoxaparin - CODE STATUS: Full code - DIET: NDD2 and [place] thick - DISPOSITION: Pending placement Quality Stroke Does the patient have a stroke diagnosis?: No VTE Prior VTE?: No VTE Risk Level:: Medical - moderate - high VTE Device Contraindication: Treatment Not Indicated VTE Drug Contraindication: N/A - Med Ordered
[2025-04-17] MEDS: Milk of Magnesia 30 ML ORAL.SUSP PO (14:37)
[2025-04-17 15:30] VITALS: BP 131/74; PULSE 95; RESP 18; TEMP 37.1; O2SAT 95
[2025-04-17 16:21] LABS: Glucose, Whole Blood 135 mg/dL (60-115)
[2025-04-17 20:00] VITALS: BP 124/59; PULSE 86; RESP 19; TEMP 37.1; O2SAT 96
[2025-04-17 20:56] LABS: Glucose, Whole Blood 251 mg/dL (60-115)
[2025-04-17 22:14] LABS: Appearance Urine Clear; Glucose Urine UA 500 mg/dL (Negative); PH 6.0 (5.0-9.0); Specific Gravity - Urine 1.025 (1.005-1.025)
[2025-04-18 03:02] VITALS: BP 134/61; PULSE 82; RESP 14; TEMP 36.1; O2SAT 97
[2025-04-18] MEDS: Omeprazole/Na Bicarb Oral Susp 20 MG/10 ML UD Cup G-TUBE (06:08)
[2025-04-18 07:24] VITALS: BP 128/60; PULSE 74; RESP 16; TEMP 36.2; O2SAT 97
[2025-04-18 07:33] LABS: Glucose, Whole Blood 126 mg/dL (60-115)
[2025-04-18 09:58] VITALS: BP 123/57; PULSE 79; O2SAT 93
[2025-04-18] MEDS: Metoprolol Tartrate 12.5 MG HALFTAB PO ×2 (09:59→20:37)
[2025-04-18] MEDS: 0.9 % Sodium Chloride Flush 3 ML SYRINGE IVFLUSH (10:05)
[2025-04-18 11:35] LABS: Glucose, Whole Blood 169 mg/dL (60-115)
--- NOTE | 2025-04-18 15:26 | HO.PM.IMPN ---
Subjective Subjective Date of Service: 04/18/25 Interval History: no new overnight events Review of Systems Review of Systems: Yes all other systems are reviewed and are negative Physical Exam Exam: Exam: General: Alert but confused at baseline, no acute distress Resp: CTA bilateral CVS: S1,S2,RRR GI: +BS, NT, no distention Skin: No rash Neuro: motor grossly intact Psych: appropriate affect Vital Signs: Vital Signs: Last Vital Signs Temp 97.2 F 04/18/25 07:24 Pulse 79 04/18/25 09:58 Resp 16 04/18/25 07:24 BP 123/57 L 04/18/25 09:58 Pulse Ox 93 04/18/25 09:58 O2 Del Method Room Air 04/18/25 09:58 O2 Flow Rate 3 03/07/25 23:35 BMI result Body Mass Index 23.3 Objective Data Active Medications Acetaminophen (Acetaminophen 325 Mg Tablet) 650 mg PO Q6H PRN PRN Reason: Headache/Pain, Scale 1-10 Al Hydroxide/Mg Hydroxide (Magnesium Hydrox/Alum Hydrox 30 Ml Oral.Susp) 30 ml PO Q6H PRN PRN Reason: Heartburn/Nausea Last Admin: 03/20/25 15:11 Dose: 30 ml Documented By: KERRI Calcium Carbonate (Calcium Carbonate 750 Mg Tab.Chew) 750 mg PO Q4H PRN PRN Reason: Heartburn Clozapine (Clozapine 25 Mg Tablet) 50 mg PO TID [facility] Last Admin: 04/18/25 09:59 Dose: 50 mg Documented By: OTTONIEL Dextrose (Dextrose 50 % 25 Gm/50 Ml Syringe) 25 gm IVPUSH Q15M PRN; Protocol PRN Reason: per Hypoglycemia Standing Ord. Docusate Sodium (Docusate Sodium 100 Mg/10 Ml Liquid) 100 mg G-TUBE BID [facility] Last Admin: 04/18/25 10:11 Dose: Not Given Documented By: OTTONIEL Non-Admin Reason: Patient Refused Enoxaparin Sodium (Enoxaparin Sodium 40 Mg/0.4 Ml Syringe) 40 mg SUBCUT Q24H [facility] Last Admin: 04/18/25 09:59 Dose: 40 mg Documented By: OTTONIEL Fluoxetine HCl (Fluoxetine Hcl 20 Mg Capsule) 40 mg PO BEDTIME NATE On Hold: 02/22/25 14:23 Last Admin: 02/21/25 22:23 Dose: Not Given Documented By: PAPITO Non-Admin Reason: pt refused Glucagon (Glucagon Hcl 1 Mg Vial) 1 mg IM Q20M PRN PRN Reason: low BG Glucose (Glucose Gel 15 Gm Gel..Gram.) 15 gm PO Q15M PRN; Protocol PRN Reason: per Hypoglycemia Standing Ord. Hydralazine HCl (Hydralazine Hcl 20 Mg/Ml Vial) 5 mg IVPUSH Q6H PRN; Protocol PRN Reason: htn Last Admin: 02/23/25 17:30 Dose: 5 mg Documented By: JAYME Insulin Glargine (Insulin Glargine,Hum.Rec.Anlog 100 Unit/Ml 10 Ml Vial) 30 unit SUBCUT DAILY [facility] On Hold: 03/14/25 09:00 Insulin Human Lispro (Insulin Lispro 100 Unit/Ml 3 Ml Vial) 0 unit SUBCUT QIDACHS [facility]; Protocol Last Admin: 04/18/25 12:05 Dose: 2 unit Documented By: OTTONIEL Magnesium Hydroxide (Milk Of Magnesia 30 Ml Oral.Susp) 30 ml PO DAILY PRN PRN Reason: Constipation Last Admin: 04/17/25 14:37 Dose: 30 ml Documented By: REFUGIO Melatonin (Melatonin 3 Mg Tablet) 6 mg PO BEDTIME PRN PRN Reason: Insomnia Last Admin: 04/17/25 19:56 Dose: 6 mg Documented By: CAROLINA Metoprolol Tartrate (Metoprolol Tartrate 12.5 Mg Halftab) 12.5 mg PO BID [facility]; Protocol Last Admin: 04/18/25 09:59 Dose: 12.5 mg Documented By: OTTONIEL Naloxone HCl (Naloxone Hcl 0.4 Mg/Ml Vial) 0.04 mg IVPUSH Q5M PRN PRN Reason: Excessive sedation or RR < 8 Nystatin (Nystatin Powder 15 Gm Bottle) 1 appl TOPICAL BID [facility]; Protocol Last Admin: 04/18/25 10:11 Dose: 1 appl Documented By: OTTONIEL Omeprazole (Omeprazole/Na Bicarb Oral Susp 20 Mg/10 Ml Ud Cup) 20 mg G-TUBE DAILY@0630 [facility] Last Admin: 04/18/25 06:08 Dose: 20 mg Documented By: CAROLINA Perphenazine (Perphenazine 2 Mg Tablet) 2 mg PO BID [facility] Last Admin: 04/18/25 09:59 Dose: 2 mg Documented By: OTTONIEL Perphenazine (Perphenazine 4 Mg Tablet) 4 mg PO BID [facility] Last Admin: 04/18/25 09:59 Dose: 4 mg Documented By: OTTONIEL Senna (Sennosides 8.6 Mg Tablet) 8.6 mg PO DAILY [facility] Last Admin: 04/18/25 09:59 Dose: 8.6 mg Documented By: OTTONIEL Sodium Biphosphate/Sodium Phosphate (Sodium Phosphate,[place]-Dibasic 133 Ml Enema) 133 ml [place] DAILY PRN PRN Reason: Constipation Last Admin: 03/11/25 12:18 Dose: 133 ml Documented By: STEPHANE Sodium Chloride (0.9 % Sodium Chloride Flush 3 Ml Syringe) 3 ml IVFLUSH QSHIFT [facility] Last Admin: 04/18/25 10:05 Dose: 3 ml Documented By: OTTONIEL Trazodone HCl (Trazodone Hcl 50 Mg Tablet) 50 mg PO BEDTIME MRX1 PRN PRN Reason: Insomnia Last Admin: 04/17/25 19:54 Dose: 50 mg Documented By: CAROLINA Valproic Acid (Valproic Acid 250 Mg Capsule) 500 mg PO BID [facility] Last Admin: 04/18/25 09:59 Dose: 500 mg Documented By: OTTONIEL Labs 03/25/25 09:38 04/01/25 08:23 Labs: Laboratory Results - last 24 hr 04/17/25 04/17/25 04/17/25 16:16 20:19 20:52 POC Glucose 135 H 251 H Urine Color Yellow Urine Appearance Clear Urine pH 6.0 Ur Specific [place] 1.025 Urine Protein Negative Urine Glucose (UA) 500 H Urine Ketones 15 Urine Blood Negative Urine Nitrite Negative Ur Leukocyte Esterase Negative 04/18/25 04/18/25 07:28 11:31 POC Glucose 126 H 169 H Urine Color Urine Appearance Urine pH Ur Specific [place] Urine Protein Urine Glucose (UA) Urine Ketones Urine Blood Urine Nitrite Ur Leukocyte Esterase Assessment and Plan (1) Schizoaffective disorder: Status: Acute Plan 69-year-old male with a history of schizoaffective disorder (with psychotic features), major depressive disorder, diabetes, and GERD presented to the ED on 02/14/2025 after multiple falls. He was admitted for acute multifactorial encephalopathy, which was complicated by acute hypoxic respiratory failure secondary to aspiration pneumonia on 02/16/2025. Essentially no new issues, reamins confused at baseline Acute toxic/metabolic encephalopathyAcute hypoxic respiratory failure d/t Aspiration pneumonia Completed IV Unasyn; blood cultures negative. Weaned off supplemental oxygen, currently maintaining goal saturation of 95%. Aspiration precautions in place. Dysphagia: Evaluated by speech and swallow; recommended nectar-thickened liquids. Initially had poor oral intake and required TPN. Underwent G-tube placement on 03/02/2025. Tube feeds are being held while he is able to eat orally. Currently tolerating oral intake with NDD2 diet and nectar-thickened liquids. Psychiatric History: Schizoaffective disorder with psychotic features: Intermittent refusal of psychiatric medications and vital sign monitoring. Continue current regimen: fluoxetine, perphenazine (Trilafon), valproic acid (Depakote), clozapine (Clozaril), and valium. Psych follow-up as needed. Other Medical Issues: Diabetes, uncontrolled: continue Lantus 30 units; continue sliding scale insulin. Hypertension: No current management; blood pressure within normal limits. Summary: Patient is recovering from aspiration pneumonia and acute encephalopathy, now tolerating oral intake with dietary modifications. Psychiatric and medical management ongoing and need placement Routine labs 03/25/25 cbc, bmp unremarkable [facility] - VTE: Enoxaparin - CODE STATUS: Full code - DIET: NDD2 and [place] thick - DISPOSITION: Pending placement Quality Stroke Does the patient have a stroke diagnosis?: No VTE Prior VTE?: No VTE Risk Level:: Medical - moderate - high VTE Device Contraindication: Treatment Not Indicated VTE Drug Contraindication: N/A - Med Ordered
[2025-04-18 15:30] VITALS: BP 122/58; PULSE 80; RESP 18; TEMP 36.5; O2SAT 97
--- NOTE | 2025-04-18 15:55 | PC.NURSE ---
Patient pleasant and cooperative with medications and care. Patient having difficulty having bowel movement and feeling like it's there but won't come out . Patient educated regarding bowel medications but hesitant to take due to fear of diarrhea, patient continues to refuse Colace due to it doesn't work . PEG tube flushed in morning, patient refused further times stating I don't need that much fluid in my belly , patient is tolerating PO intake on nectar thick liquids. Patient encouraged to get up in chair and ambulate in halls but refused. Bed alarm remains on, patient using call denny appropriately, camera in place.
[2025-04-18] MEDS: Milk of Magnesia 30 ML ORAL.SUSP PO (15:58)
[2025-04-18 16:19] LABS: Glucose, Whole Blood 125 mg/dL (60-115)
--- NOTE | 2025-04-18 19:32 | PC.NURSE ---
Patient continues to feel he needs to have a bowel movement, up multiple times throughout shift and sat on commode, used bed hodge, positive flatus and straining to push stool out. PRN medications administered. Patient then attempted to stick finger up rectum to extract stool, unsuccessful. Via [employer], provider Grant asked for suppository.
[2025-04-18 20:00] VITALS: BP 124/67; PULSE 82; RESP 18; TEMP 36.4; O2SAT 95
[2025-04-18 20:03] LABS: Glucose, Whole Blood 220 mg/dL (60-115)
--- NOTE | 2025-04-19 03:12 | PC.NURSE ---
Patient cooperative with medications and care, continues to be verbally inappropriate at times with staff throughout the night. Patient continues to have difficulty having bowel movement, suppository given with little effect per patient, & continues to strain while using the bathroom. PEG tube flushed at beginning of shift, patient continues to tolerate PO intake on nectar thick liquids. Bed alarm remains on, patient using call denny appropriately, camera in place.
[2025-04-19 03:16] VITALS: BP 116/59; PULSE 74; RESP 14; TEMP 36.1; O2SAT 93
[2025-04-19] MEDS: Omeprazole/Na Bicarb Oral Susp 20 MG/10 ML UD Cup G-TUBE (06:03)
[2025-04-19 08:00] VITALS: BP 135/65; PULSE 78; RESP 12; TEMP 36.3; O2SAT 98
[2025-04-19 08:38] LABS: Glucose, Whole Blood 132 mg/dL (60-115)
[2025-04-19] MEDS: Metoprolol Tartrate 12.5 MG HALFTAB PO ×2 (08:56→20:29)
[2025-04-19] MEDS: 0.9 % Sodium Chloride Flush 3 ML SYRINGE IVFLUSH ×2 (09:07)
[2025-04-19 11:29] LABS: Glucose, Whole Blood 180 mg/dL (60-115)
--- NOTE | 2025-04-19 11:35 | P.PNIM_ITS ---
Subjective Subjective Date of Service: 04/19/25 Interval History: no new overnight events Review of Systems Review of Systems: Yes all other systems are reviewed and are negative Physical Exam 2 Exam: Exam: General: Alert but confused at baseline, no acute distress Resp: CTA bilateral CVS: S1,S2,RRR GI: +BS, NT, no distention Skin: No rash Neuro: motor grossly intact Psych: appropriate affect Vital Signs: Vital Signs: Last Vital Signs Temp 97.4 F 04/19/25 08:00 Pulse 78 04/19/25 08:00 Resp 12 04/19/25 08:00 BP 135/65 04/19/25 08:00 Pulse Ox 98 04/19/25 08:00 O2 Del Method Room Air 04/19/25 08:00 O2 Flow Rate 3 03/07/25 23:35 BMI result Body Mass Index 23.3 Objective Data Active Medications Acetaminophen (Acetaminophen 325 Mg Tablet) 650 mg PO Q6H PRN PRN Reason: Headache/Pain, Scale 1-10 Al Hydroxide/Mg Hydroxide (Magnesium Hydrox/Alum Hydrox 30 Ml Oral.Susp) 30 ml PO Q6H PRN PRN Reason: Heartburn/Nausea Last Admin: 03/20/25 15:11 Dose: 30 ml Documented By: KERRI Bisacodyl (Bisacodyl 10 Mg Supp.Rect) 10 mg [place] BEDTIME PRN PRN Reason: Constipation Calcium Carbonate (Calcium Carbonate 750 Mg Tab.Chew) 750 mg PO Q4H PRN PRN Reason: Heartburn Clozapine (Clozapine 25 Mg Tablet) 50 mg PO TID [facility] Last Admin: 04/19/25 08:55 Dose: 50 mg Documented By: OTTONIEL Dextrose (Dextrose 50 % 25 Gm/50 Ml Syringe) 25 gm IVPUSH Q15M PRN; Protocol PRN Reason: per Hypoglycemia Standing Ord. Docusate Sodium (Docusate Sodium 100 Mg/10 Ml Liquid) 100 mg G-TUBE BID [facility] Last Admin: 04/19/25 09:10 Dose: Not Given Documented By: OTTONIEL Non-Admin Reason: Patient Refused Enoxaparin Sodium (Enoxaparin Sodium 40 Mg/0.4 Ml Syringe) 40 mg SUBCUT Q24H [facility] Last Admin: 04/19/25 09:08 Dose: 40 mg Documented By: OTTONIEL Fluoxetine HCl (Fluoxetine Hcl 20 Mg Capsule) 40 mg PO BEDTIME NATE On Hold: 02/22/25 14:23 Last Admin: 02/21/25 22:23 Dose: Not Given Documented By: PAPITO Non-Admin Reason: pt refused Glucagon (Glucagon Hcl 1 Mg Vial) 1 mg IM Q20M PRN PRN Reason: low BG Glucose (Glucose Gel 15 Gm Gel..Gram.) 15 gm PO Q15M PRN; Protocol PRN Reason: per Hypoglycemia Standing Ord. Hydralazine HCl (Hydralazine Hcl 20 Mg/Ml Vial) 5 mg IVPUSH Q6H PRN; Protocol PRN Reason: htn Last Admin: 02/23/25 17:30 Dose: 5 mg Documented By: JAYME Insulin Glargine (Insulin Glargine,Hum.Rec.Anlog 100 Unit/Ml 10 Ml Vial) 30 unit SUBCUT DAILY [facility] On Hold: 03/14/25 09:00 Insulin Human Lispro (Insulin Lispro 100 Unit/Ml 3 Ml Vial) 0 unit SUBCUT QIDACHS [facility]; Protocol Last Admin: 04/19/25 08:43 Dose: Not Given Documented By: OTTONIEL Non-Admin Reason: No Insulin Coverage Magnesium Hydroxide (Milk Of Magnesia 30 Ml Oral.Susp) 30 ml PO DAILY PRN PRN Reason: Constipation Last Admin: 04/18/25 15:58 Dose: 30 ml Documented By: OTTONIEL Melatonin (Melatonin 3 Mg Tablet) 6 mg PO BEDTIME PRN PRN Reason: Insomnia Last Admin: 04/18/25 20:37 Dose: 6 mg Documented By: CAROLINA Metoprolol Tartrate (Metoprolol Tartrate 12.5 Mg Halftab) 12.5 mg PO BID [facility]; Protocol Last Admin: 04/19/25 08:56 Dose: 12.5 mg Documented By: OTTONIEL Naloxone HCl (Naloxone Hcl 0.4 Mg/Ml Vial) 0.04 mg IVPUSH Q5M PRN PRN Reason: Excessive sedation or RR < 8 Nystatin (Nystatin Powder 15 Gm Bottle) 1 appl TOPICAL BID [facility]; Protocol Last Admin: 04/19/25 09:10 Dose: 1 appl Documented By: OTTONIEL Omeprazole (Omeprazole/Na Bicarb Oral Susp 20 Mg/10 Ml Ud Cup) 20 mg G-TUBE DAILY@0630 [facility] Last Admin: 04/19/25 06:03 Dose: 20 mg Documented By: CAROLINA Perphenazine (Perphenazine 2 Mg Tablet) 2 mg PO BID [facility] Last Admin: 04/19/25 08:55 Dose: 2 mg Documented By: OTTONIEL Perphenazine (Perphenazine 4 Mg Tablet) 4 mg PO BID [facility] Last Admin: 04/19/25 08:56 Dose: 4 mg Documented By: OTTONIEL Senna (Sennosides 8.6 Mg Tablet) 8.6 mg PO DAILY [facility] Last Admin: 04/19/25 08:55 Dose: 8.6 mg Documented By: OTTONIEL Sodium Biphosphate/Sodium Phosphate (Sodium Phosphate,[place]-Dibasic 133 Ml Enema) 133 ml [place] DAILY PRN PRN Reason: Constipation Last Admin: 03/11/25 12:18 Dose: 133 ml Documented By: STEPHANE Sodium Chloride (0.9 % Sodium Chloride Flush 3 Ml Syringe) 3 ml IVFLUSH QSHIFT [facility] Last Admin: 04/19/25 09:07 Dose: 3 ml Documented By: OTTONIEL Trazodone HCl (Trazodone Hcl 50 Mg Tablet) 50 mg PO BEDTIME MRX1 PRN PRN Reason: Insomnia Last Admin: 04/18/25 20:37 Dose: 50 mg Documented By: CAROLINA Valproic Acid (Valproic Acid 250 Mg Capsule) 500 mg PO BID [facility] Last Admin: 04/19/25 08:55 Dose: 500 mg Documented By: OTTONIEL Labs 03/25/25 09:38 04/01/25 08:23 Labs: Laboratory Results - last 24 hr 04/18/25 04/18/25 04/18/25 11:31 16:16 19:58 POC Glucose 169 H 125 H 220 H 04/19/25 04/19/25 08:13 11:25 POC Glucose 132 H 180 H Assessment and Plan (1) Schizoaffective disorder: Status: Acute Plan 69-year-old male with a history of schizoaffective disorder (with psychotic features), major depressive disorder, diabetes, and GERD presented to the ED on 02/14/2025 after multiple falls. He was admitted for acute multifactorial encephalopathy, which was complicated by acute hypoxic respiratory failure secondary to aspiration pneumonia on 02/16/2025. Essentially no new issues, reamins confused at baseline Acute toxic/metabolic encephalopathyAcute hypoxic respiratory failure d/t Aspiration pneumonia Completed IV Unasyn; blood cultures negative. Weaned off supplemental oxygen, currently maintaining goal saturation of 95%. Aspiration precautions in place. Dysphagia: Evaluated by speech and swallow; recommended nectar-thickened liquids. Initially had poor oral intake and required TPN. Underwent G-tube placement on 03/02/2025. Tube feeds are being held while he is able to eat orally. Currently tolerating oral intake with NDD2 diet and nectar-thickened liquids. Psychiatric History: Schizoaffective disorder with psychotic features: Intermittent refusal of psychiatric medications and vital sign monitoring. Continue current regimen: fluoxetine, perphenazine (Trilafon), valproic acid (Depakote), clozapine (Clozaril), and valium. Psych follow-up as needed. Other Medical Issues: Diabetes, uncontrolled: continue Lantus 30 units; continue sliding scale insulin. Hypertension: No current management; blood pressure within normal limits. Summary: Patient is recovering from aspiration pneumonia and acute encephalopathy, now tolerating oral intake with dietary modifications. Psychiatric and medical management ongoing and need placement Routine labs 03/25/25 cbc, bmp unremarkable [facility] - VTE: Enoxaparin - CODE STATUS: Full code - DIET: NDD2 and [place] thick - DISPOSITION: Pending placement Quality Stroke Does the patient have a stroke diagnosis?: No VTE Prior VTE?: No VTE Risk Level:: Medical - moderate - high VTE Device Contraindication: Treatment Not Indicated VTE Drug Contraindication: N/A - Med Ordered
[2025-04-19 15:25] VITALS: BP 105/56; PULSE 70; RESP 18; TEMP 36.5; O2SAT 100
[2025-04-19 16:26] LABS: Glucose, Whole Blood 179 mg/dL (60-115)
[2025-04-19 19:52] VITALS: BP 110/62; PULSE 72; RESP 18; TEMP 36.2; O2SAT 98
[2025-04-19 20:05] LABS: Glucose, Whole Blood 211 mg/dL (60-115)
[2025-04-20 03:10] VITALS: BP 127/61; PULSE 66; RESP 18; TEMP 36.2; O2SAT 98
[2025-04-20] MEDS: Omeprazole/Na Bicarb Oral Susp 20 MG/10 ML UD Cup G-TUBE (05:49)
[2025-04-20 07:54] VITALS: BP 102/57; PULSE 62; RESP 16; TEMP 36; O2SAT 97
[2025-04-20 08:04] LABS: Glucose, Whole Blood 149 mg/dL (60-115)
[2025-04-20 10:18] LABS: Chlamydia pneumoniae PCR Not Detected (Not Detect.); Coronavirus 229E PCR Not Detected (Not Detect.); Coronavirus HKU1 PCR Not Detected (Not Detect.); Coronavirus NL63 PCR Not Detected (Not Detect.); Coronavirus OC43 PCR Not Detected (Not Detect.); Influenza A H1-2009 PCR Detected (Not Detect.); RSV PCR Not Detected (Not Detect.); Rhino/Enterovirus PCR Not Detected (Not Detect.)
[2025-04-20 10:47] LABS: Influenza A H1 PCR Not Detected (Not Detect.); Influenza A H3 PCR Not Detected (Not Detect.); SARS-CoV-2 PCR Not Detected (Not Detect.)
[2025-04-20 11:45] LABS: Glucose, Whole Blood 243 mg/dL (60-115)
[2025-04-20 12:59] LABS: Hematocrit 37.9 % (42.0-52.0); Hemoglobin 12.3 g/dl (14.0-18.0); Mean Corpuscular HGB Conc 32.5 g/dl (31.0-36.0); Mean Corpuscular Hemoglobin 29.8 pg (27.0-33.0); Mean Corpuscular Volume 91.8 fL (80.0-98.0); NRBC Abs Auto 0.000 X10*3/uL (0.0-0.012); NRBC Pct Auto 0.0 /100WBC (0.0-0.2); Platelet Count 106 X10*3/uL (160-400); Red Blood Count 4.13 X10*6/uL (4.60-5.80); White Blood Count 3.3 X10*3/uL (4.8-10.8)
[2025-04-20 13:09] LABS: Anion Gap 12 (12-20); Blood Urea Nitrogen 12 mg/dL (9-16); Calcium 8.9 mg/dL (8.4-10.2); Carbon Dioxide 24 mmol/L (22-29); Chloride 109 mmol/L (96-108); Creatinine Clr Calc Pharmacy 95.7; Estimated Glomerular Filt Rate > 60; Potassium 4.4 mmol/L (3.3-5.1); Sodium 141 mmol/L (135-145)
--- NOTE | 2025-04-20 14:23 | HO.PM.IMPN ---
Subjective Subjective Date of Service: 04/20/25 Interval History: Patient looking somewhat generally weak, has dry cough Review of Systems no new events Review of Systems: Yes all other systems are reviewed and are negative Physical Exam Exam: Exam: General: Alert but confused at baseline, no acute distress Resp: CTA bilateral CVS: S1,S2,RRR GI: +BS, NT, no distention Skin: No rash Neuro: motor grossly intact Psych: appropriate affect Vital Signs: Vital Signs: Last Vital Signs Temp 96.8 F 04/20/25 07:54 Pulse 62 04/20/25 07:54 Resp 16 04/20/25 07:54 BP 102/57 L 04/20/25 07:54 Pulse Ox 97 04/20/25 07:54 O2 Del Method Room Air 04/20/25 07:54 O2 Flow Rate 3 03/07/25 23:35 BMI result Body Mass Index 23.3 Objective Data Active Medications Acetaminophen (Acetaminophen 325 Mg Tablet) 650 mg PO Q6H PRN PRN Reason: Headache/Pain, Scale 1-10 Al Hydroxide/Mg Hydroxide (Magnesium Hydrox/Alum Hydrox 30 Ml Oral.Susp) 30 ml PO Q6H PRN PRN Reason: Heartburn/Nausea Last Admin: 03/20/25 15:11 Dose: 30 ml Documented By: KERRI Bisacodyl (Bisacodyl 10 Mg Supp.Rect) 10 mg [place] BEDTIME PRN PRN Reason: Constipation Calcium Carbonate (Calcium Carbonate 750 Mg Tab.Chew) 750 mg PO Q4H PRN PRN Reason: Heartburn Clozapine (Clozapine 25 Mg Tablet) 50 mg PO TID [facility] Last Admin: 04/20/25 09:06 Dose: 50 mg Documented By: ANGIE Dextrose (Dextrose 50 % 25 Gm/50 Ml Syringe) 25 gm IVPUSH Q15M PRN; Protocol PRN Reason: per Hypoglycemia Standing Ord. Docusate Sodium (Docusate Sodium 100 Mg/10 Ml Liquid) 100 mg G-TUBE BID [facility] Last Admin: 04/20/25 09:07 Dose: Not Given Documented By: ANGIE Non-Admin Reason: Patient Refused Enoxaparin Sodium (Enoxaparin Sodium 40 Mg/0.4 Ml Syringe) 40 mg SUBCUT Q24H [facility] Last Admin: 04/20/25 09:13 Dose: Not Given Documented By: ANGIE Non-Admin Reason: Patient Refused Fluoxetine HCl (Fluoxetine Hcl 20 Mg Capsule) 40 mg PO BEDTIME NATE On Hold: 02/22/25 14:23 Last Admin: 02/21/25 22:23 Dose: Not Given Documented By: PAPITO Non-Admin Reason: pt refused Glucagon (Glucagon Hcl 1 Mg Vial) 1 mg IM Q20M PRN PRN Reason: low BG Glucose (Glucose Gel 15 Gm Gel..Gram.) 15 gm PO Q15M PRN; Protocol PRN Reason: per Hypoglycemia Standing Ord. Hydralazine HCl (Hydralazine Hcl 20 Mg/Ml Vial) 5 mg IVPUSH Q6H PRN; Protocol PRN Reason: htn Last Admin: 02/23/25 17:30 Dose: 5 mg Documented By: JAYME Insulin Glargine (Insulin Glargine,Hum.Rec.Anlog 100 Unit/Ml 10 Ml Vial) 30 unit SUBCUT DAILY NATE On Hold: 03/14/25 09:00 Insulin Human Lispro (Insulin Lispro 100 Unit/Ml 3 Ml Vial) 0 unit SUBCUT QIDACHS [facility]; Protocol Last Admin: 04/20/25 11:53 Dose: 4 unit Documented By: ANGIE Magnesium Hydroxide (Milk Of Magnesia 30 Ml Oral.Susp) 30 ml PO DAILY PRN PRN Reason: Constipation Last Admin: 04/18/25 15:58 Dose: 30 ml Documented By: OTTONIEL Melatonin (Melatonin 3 Mg Tablet) 6 mg PO BEDTIME PRN PRN Reason: Insomnia Last Admin: 04/18/25 20:37 Dose: 6 mg Documented By: CAROLINA Metoprolol Tartrate (Metoprolol Tartrate 12.5 Mg Halftab) 12.5 mg PO BID [facility]; Protocol Last Admin: 04/20/25 09:07 Dose: Not Given Documented By: ANGIE Non-Admin Reason: Physician Held Med Naloxone HCl (Naloxone Hcl 0.4 Mg/Ml Vial) 0.04 mg IVPUSH Q5M PRN PRN Reason: Excessive sedation or RR < 8 Nystatin (Nystatin Powder 15 Gm Bottle) 1 appl TOPICAL BID [facility]; Protocol Last Admin: 04/20/25 11:04 Dose: Not Given Documented By: ANGIE Non-Admin Reason: Patient Refused Omeprazole (Omeprazole/Na Bicarb Oral Susp 20 Mg/10 Ml Ud Cup) 20 mg G-TUBE DAILY@0630 [facility] Last Admin: 04/20/25 05:49 Dose: 20 mg Documented By: FLAVIO Perphenazine (Perphenazine 2 Mg Tablet) 2 mg PO BID [facility] Last Admin: 04/20/25 09:06 Dose: 2 mg Documented By: ANGIE Perphenazine (Perphenazine 4 Mg Tablet) 4 mg PO BID [facility] Last Admin: 04/20/25 09:06 Dose: 4 mg Documented By: ANGIE Senna (Sennosides 8.6 Mg Tablet) 8.6 mg PO DAILY [facility] Last Admin: 04/20/25 09:07 Dose: 8.6 mg Documented By: ANGIE Sodium Biphosphate/Sodium Phosphate (Sodium Phosphate,[place]-Dibasic 133 Ml Enema) 133 ml [place] DAILY PRN PRN Reason: Constipation Last Admin: 03/11/25 12:18 Dose: 133 ml Documented By: STEPHANE Trazodone HCl (Trazodone Hcl 50 Mg Tablet) 50 mg PO BEDTIME MRX1 PRN PRN Reason: Insomnia Last Admin: 04/18/25 20:37 Dose: 50 mg Documented By: CAROLINA Valproic Acid (Valproic Acid 250 Mg Capsule) 500 mg PO BID [facility] Last Admin: 04/20/25 09:06 Dose: 500 mg Documented By: ANGIE Labs 04/20/25 12:29 04/20/25 12:29 Labs: Laboratory Results - last 24 hr 04/19/25 04/19/25 04/20/25 16:22 19:58 08:00 MCV MCH MCHC RDW Plt Count MPV Absolute Nucleated RBC Nucleated RBC % (auto) Anion Gap Estim Creat Clear Calc Estimated GFR POC Glucose 179 H 211 H 149 H Random Glucose Calcium Respiratory Panel [place] Adenovirus (Rapid PCR) B.pert (TEM-PCR) B.parapertussis DNA PCR C. pneumoniae DNA (PCR) Coronavirus OC43 (PCR) Coronavirus HKU1 (PCR) Coronavirus 229E (PCR) Coronavirus NL63 (PCR) Human Metapneumovir PCR Influenza A (RT-PCR) Influenza A (H1) PCR Influ A (H1/09) PCR Influenza A (H3) PCR Influenza B (RT-PCR) M. pneumoniae (PCR) Parainfluenza 1 (PCR) Parainfluenza 2 (PCR) Parainfluenza 3 (PCR) Parainfluenza 4 (PCR) RSV (PCR) Entero/Rhino (PCR) SARS-CoV-2 RNA (RT-PCR) 04/20/25 04/20/25 04/20/25 09:05 11:37 12:29 MCV 91.8 MCH 29.8 MCHC 32.5 RDW 13.5 Plt Count 106 L MPV 10.2 Absolute Nucleated RBC 0.000 Nucleated RBC % (auto) 0.0 Anion Gap 12 Estim Creat Clear Calc 95.7 Estimated GFR > 60 POC Glucose 243 H Random Glucose 255 H Calcium 8.9 Respiratory Panel [place] See Note Adenovirus (Rapid PCR) Not Detected B.pert (TEM-PCR) Not Detected B.parapertussis DNA PCR Not Detected C. pneumoniae DNA (PCR) Not Detected Coronavirus OC43 (PCR) Not Detected Coronavirus HKU1 (PCR) Not Detected Coronavirus 229E (PCR) Not Detected Coronavirus NL63 (PCR) Not Detected Human Metapneumovir PCR Not Detected Influenza A (RT-PCR) Detected A Influenza A (H1) PCR Not Detected Influ A (H1/09) PCR Detected A Influenza A (H3) PCR Not Detected Influenza B (RT-PCR) Not Detected M. pneumoniae (PCR) Not Detected Parainfluenza 1 (PCR) Not Detected Parainfluenza 2 (PCR) Not Detected Parainfluenza 3 (PCR) Not Detected Parainfluenza 4 (PCR) Not Detected RSV (PCR) Not Detected Entero/Rhino (PCR) Not Detected SARS-CoV-2 RNA (RT-PCR) Not Detected Assessment and Plan (1) Influenza A: Status: Acute Assessment and Plan: 69-year-old male with a history of schizoaffective disorder (with psychotic features), major depressive disorder, diabetes, and GERD presented to the ED on 02/14/2025 after multiple falls. He was admitted for acute multifactorial encephalopathy, which was complicated by acute hypoxic respiratory failure secondary to aspiration pneumonia on 02/16/2025. Generalized weak and had cough: Respiratory viral panel positive for influenza A Started on Tamiflu, cough medication, droplet precautions Chest x-ray negative Essentially no new issues, reamins confused at baseline Acute toxic/metabolic encephalopathyAcute hypoxic respiratory failure d/t Aspiration pneumonia Completed IV Unasyn; blood cultures negative. Weaned off supplemental oxygen, currently maintaining goal saturation of 95%. Aspiration precautions in place. Dysphagia: Evaluated by speech and swallow; recommended nectar-thickened liquids. Initially had poor oral intake and required TPN. Underwent G-tube placement on 03/02/2025. Tube feeds are being held while he is able to eat orally. Currently tolerating oral intake with NDD2 diet and nectar-thickened liquids. Psychiatric History: Schizoaffective disorder with psychotic features: Intermittent refusal of psychiatric medications and vital sign monitoring. Continue current regimen: fluoxetine, perphenazine (Trilafon), valproic acid (Depakote), clozapine (Clozaril), and valium. Psych follow-up as needed. Other Medical Issues: Diabetes, uncontrolled: continue Lantus 30 units; continue sliding scale insulin. Hypertension: No current management; blood pressure within normal limits. Summary: Patient is recovering from aspiration pneumonia and acute encephalopathy, now tolerating oral intake with dietary modifications. Psychiatric and medical management ongoing and need placement Routine labs 03/25/25 cbc, bmp unremarkable [employer] [employer] - VTE: Enoxaparin - CODE STATUS: Full code - DIET: NDD2 and [place] thick - DISPOSITION: Pending placement Quality Stroke Does the patient have a stroke diagnosis?: No VTE Prior VTE?: No VTE Risk Level:: Medical - moderate - high VTE Device Contraindication: Treatment Not Indicated VTE Drug Contraindication: N/A - Med Ordered
--- NOTE | 2025-04-20 14:27 | MHC.CM.PN ---
[place] scheduled today, results pending. Patient tested Flu+. Stella Salgado is following for M.H. approval. DP LTC via BLS.
[2025-04-20 15:36] VITALS: BP 144/67; PULSE 74; RESP 16; TEMP 36.2; O2SAT 97
[2025-04-20 16:44] LABS: Glucose, Whole Blood 179 mg/dL (60-115)
[2025-04-20 20:00] VITALS: BP 137/66; PULSE 67; RESP 12; TEMP 36.4; O2SAT 98
[2025-04-20 20:42] LABS: Glucose, Whole Blood 154 mg/dL (60-115)
[2025-04-20] MEDS: Metoprolol Tartrate 12.5 MG HALFTAB PO (21:00)
[2025-04-21 03:13] VITALS: BP 122/58; PULSE 63; RESP 18; TEMP 36.9; O2SAT 95
[2025-04-21] MEDS: Omeprazole/Na Bicarb Oral Susp 20 MG/10 ML UD Cup G-TUBE (05:34)
[2025-04-21 08:13] VITALS: BP 145/69; PULSE 98; RESP 18; TEMP 36.1; O2SAT 93
[2025-04-21 08:15] LABS: Glucose, Whole Blood 166 mg/dL (60-115)
[2025-04-21] MEDS: Metoprolol Tartrate 12.5 MG HALFTAB PO ×2 (08:19→21:11)
[2025-04-21 11:35] LABS: Glucose, Whole Blood 173 mg/dL (60-115)
[2025-04-21 16:17] VITALS: BP 140/70; PULSE 62; RESP 18; TEMP 37; O2SAT 95
[2025-04-21 16:31] LABS: Glucose, Whole Blood 185 mg/dL (60-115)
[2025-04-21 19:51] VITALS: BP 123/60; PULSE 73; RESP 17; TEMP 36.1; O2SAT 96
[2025-04-21 21:05] LABS: Glucose, Whole Blood 317 mg/dL (60-115)
[2025-04-22 04:00] VITALS: BP 130/65; PULSE 60; RESP 16; TEMP 36.7; O2SAT 96
--- NOTE | 2025-04-22 04:52 | PC.NURSE ---
Assumed care of patient at 2300. Patient is quiet, calm, cooperative. Making needs known appropriately. Sleeping well throughout the night.
[2025-04-22] MEDS: Omeprazole/Na Bicarb Oral Susp 20 MG/10 ML UD Cup G-TUBE (05:03)
[2025-04-22 07:18] VITALS: BP 107/60; PULSE 62; RESP 17; TEMP 36; O2SAT 95
[2025-04-22 07:27] LABS: Glucose, Whole Blood 137 mg/dL (60-115)
[2025-04-22] MEDS: Metoprolol Tartrate 12.5 MG HALFTAB PO ×2 (07:48→21:52)
--- NOTE | 2025-04-22 10:43 | MHC.CM.PN ---
Addendum entered by Gabriella Santiago RN 04/22/25 15:56: Stella Salgado has state approval. CM reviewed w/ guardian who is agreeable to dc plan and will complete admission paperwork electronically. Email address provided to Stella [email or web address]. [email or web address] Addendum entered by Gabriella Santiago RN 04/22/25 13:52: LM for guardian to update. Addendum entered by Gabriella Santiago RN 04/22/25 13:51: Per PT eval, no skilled therapy indicated. Stella Salgado updated w/ request to initiate approval w/ state. MDS submitted to elder services. Original Note: Per [facility], [facility] approved. Stella Salgado updated. Liaison requesting PT eval. MD and PT aware. If able to skill in, can likely transfer tomorrow. If no skill, will need unit specific state approval and PASRR. Will await PT eval.
[2025-04-22 11:15] LABS: Glucose, Whole Blood 237 mg/dL (60-115)
--- NOTE | 2025-04-22 12:25 | P.PNIM_ITS ---
Subjective Subjective Date of Service: 04/22/25 Interval History: Patient seen examined at bedside this morning, patient is pleasantly demented. Patient received tested positive for influenza. At this time states that he is experiencing cough, wishes to have nebulizing treatment. Review of Systems 14 point review of systems obtained, negative except as stated above Physical Exam 2 Exam: Exam: General: AxOx2, No acute distress Head: AT/NC ENT: Moist mucous membranes Neck: supple CVS; RRR, S1 S2 normal Lungs: Bilateral rales Abd: Soft non tender, non distended Ext: No edema and no calf tenderness MSK: moving all 4 limbs Skin: No cyanosis or edema Psych: Cooperative with exam Neurology: no focal deficit Vital Signs: Vital Signs: Last Vital Signs Temp 96.8 F 04/22/25 07:18 Pulse 62 04/22/25 07:18 Resp 17 04/22/25 07:18 BP 107/60 04/22/25 07:18 Pulse Ox 95 04/22/25 07:18 O2 Del Method Room Air 04/22/25 04:00 O2 Flow Rate 3 03/07/25 23:35 BMI result Body Mass Index 23.3 Objective Data Active Medications Acetaminophen (Acetaminophen 325 Mg Tablet) 650 mg PO Q6H PRN PRN Reason: Headache/Pain, Scale 1-10 Al Hydroxide/Mg Hydroxide (Magnesium Hydrox/Alum Hydrox 30 Ml Oral.Susp) 30 ml PO Q6H PRN PRN Reason: Heartburn/Nausea Last Admin: 03/20/25 15:11 Dose: 30 ml Documented By: GRAZIC Albuterol/Ipratropium (Albuterol/Iprat 2.5/0.5mg 3 Ml Ampul.Neb) 3 ml INHALE RQ6H WHILE AWAKE [facility] Bisacodyl (Bisacodyl 10 Mg Supp.Rect) 10 mg IA BEDTIME PRN PRN Reason: Constipation Calcium Carbonate (Calcium Carbonate 750 Mg Tab.Chew) 750 mg PO Q4H PRN PRN Reason: Heartburn Clozapine (Clozapine 25 Mg Tablet) 50 mg PO TID NATE Last Admin: 04/22/25 07:48 Dose: 50 mg Documented By: CARTER Dextrose (Dextrose 50 % 25 Gm/50 Ml Syringe) 25 gm IVPUSH Q15M PRN; Protocol PRN Reason: per Hypoglycemia Standing Ord. Docusate Sodium (Docusate Sodium 100 Mg/10 Ml Liquid) 100 mg G-TUBE BID [facility] Last Admin: 04/22/25 08:17 Dose: Not Given Documented By: CARTER Non-Admin Reason: Patient Refused Enoxaparin Sodium (Enoxaparin Sodium 40 Mg/0.4 Ml Syringe) 40 mg SUBCUT Q24H [facility] Last Admin: 04/22/25 07:49 Dose: 40 mg Documented By: CARTER Fluoxetine HCl (Fluoxetine Hcl 20 Mg Capsule) 40 mg PO BEDTIME NATE On Hold: 02/22/25 14:23 Last Admin: 02/21/25 22:23 Dose: Not Given Documented By: PAPITO Non-Admin Reason: pt refused Glucagon (Glucagon Hcl 1 Mg Vial) 1 mg IM Q20M PRN PRN Reason: low BG Glucose (Glucose Gel 15 Gm Gel..Gram.) 15 gm PO Q15M PRN; Protocol PRN Reason: per Hypoglycemia Standing Ord. Hydralazine HCl (Hydralazine Hcl 20 Mg/Ml Vial) 5 mg IVPUSH Q6H PRN; Protocol PRN Reason: htn Last Admin: 02/23/25 17:30 Dose: 5 mg Documented By: JAYME Insulin Glargine (Insulin Glargine,Hum.Rec.Anlog 100 Unit/Ml 10 Ml Vial) 30 unit SUBCUT DAILY [facility] On Hold: 03/14/25 09:00 Insulin Human Lispro (Insulin Lispro 100 Unit/Ml 3 Ml Vial) 0 unit SUBCUT QIDACHS [facility]; Protocol Last Admin: 04/22/25 11:39 Dose: 4 unit Documented By: CARTER Magnesium Hydroxide (Milk Of Magnesia 30 Ml Oral.Susp) 30 ml PO DAILY PRN PRN Reason: Constipation Last Admin: 04/18/25 15:58 Dose: 30 ml Documented By: COLBURJuaquin Melatonin (Melatonin 3 Mg Tablet) 6 mg PO BEDTIME PRN PRN Reason: Insomnia Last Admin: 04/18/25 20:37 Dose: 6 mg Documented By: CAROLINA Metoprolol Tartrate (Metoprolol Tartrate 12.5 Mg Halftab) 12.5 mg PO BID [facility]; Protocol Last Admin: 04/22/25 07:48 Dose: 12.5 mg Documented By: CARTER Naloxone HCl (Naloxone Hcl 0.4 Mg/Ml Vial) 0.04 mg IVPUSH Q5M PRN PRN Reason: Excessive sedation or RR < 8 Nystatin (Nystatin Powder 15 Gm Bottle) 1 appl TOPICAL BID [facility]; Protocol Last Admin: 04/22/25 08:17 Dose: Not Given Documented By: CARTER Non-Admin Reason: Patient Refused Omeprazole (Omeprazole/Na Bicarb Oral Susp 20 Mg/10 Ml Ud Cup) 20 mg G-TUBE DAILY@0630 [facility] Last Admin: 04/22/25 05:03 Dose: 20 mg Documented By: JULIO Oseltamivir Phosphate (Oseltamivir Phosphate 75 Mg Capsule) 75 mg PO Q12H [facility] Stop: 04/25/25 09:01 Last Admin: 04/22/25 07:47 Dose: 75 mg Documented By: CARTER Perphenazine (Perphenazine 2 Mg Tablet) 2 mg PO BID [facility] Last Admin: 04/22/25 07:47 Dose: 2 mg Documented By: CARTER Perphenazine (Perphenazine 4 Mg Tablet) 4 mg PO BID [facility] Last Admin: 04/22/25 07:48 Dose: 4 mg Documented By: CARTER Senna (Sennosides 8.6 Mg Tablet) 8.6 mg PO DAILY [facility] Last Admin: 04/22/25 07:47 Dose: 8.6 mg Documented By: CARTER Sodium Biphosphate/Sodium Phosphate (Sodium Phosphate,[place]-Dibasic 133 Ml Enema) 133 ml [place] DAILY PRN PRN Reason: Constipation Last Admin: 03/11/25 12:18 Dose: 133 ml Documented By: STEPHANE Trazodone HCl (Trazodone Hcl 50 Mg Tablet) 50 mg PO BEDTIME MRX1 PRN PRN Reason: Insomnia Last Admin: 04/21/25 21:11 Dose: 50 mg Documented By: SHINE Valproic Acid (Valproic Acid 250 Mg Capsule) 500 mg PO BID [facility] Last Admin: 04/22/25 07:48 Dose: 500 mg Documented By: CARTER Labs 04/20/25 12:29 04/20/25 12:29 Labs: Laboratory Results - last 24 hr 04/21/25 04/21/25 04/22/25 15:56 20:56 07:24 POC Glucose 185 H 317 H 137 H 04/22/25 11:11 POC Glucose 237 H Assessment and Plan (1) Schizoaffective disorder: Status: Acute (2) Alzheimer's dementia: Status: Acute (3) Pneumonia: Status: Acute Plan 69-year-old male with a history of schizoaffective disorder (with psychotic features), major depressive disorder, diabetes, and GERD presented to the ED on 02/14/2025 after multiple falls. He was admitted for acute multifactorial encephalopathy, which was complicated by acute hypoxic respiratory failure secondary to aspiration pneumonia on 02/16/2025. On 04/20 presented w/ SOB and generalized weakness, tested positive for FLU-A Pneumonia secondary to Influenza A -labs and imaging reviewed -continue Tamiflu, cough medication -will initaite duonebs q6hr -continue droplet precautions Dysphagia, chronic Evaluated by speech and swallow; recommended nectar-thickened liquids. Initially had poor oral intake and required TPN. Underwent G-tube placement on 03/02/2025. Tube feeds are being held while he is able to eat orally. Currently tolerating oral intake with NDD2 diet and nectar-thickened liquids. Schizoaffective disorder with psychotic features, chronic -Intermittent refusal of psychiatric medications and vital sign monitoring. Continue current regimen: fluoxetine, perphenazine (Trilafon), valproic acid (Depakote), clozapine (Clozaril), and valium. Psych follow-up as needed. Alzheimer dementia -continue delirium precautions, monitor for any behavioral disturbances Other Medical Issues: Diabetes, uncontrolled: continue Lantus 30 units; continue sliding scale insulin. Hypertension: No current management; blood pressure within normal limits. Total time managing care of this patient today: 35 minutes. Quality Stroke Does the patient have a stroke diagnosis?: No VTE Prior VTE?: No VTE Risk Level:: Medical - moderate - high VTE Device Contraindication: Treatment Not Indicated VTE Drug Contraindication: N/A - Med Ordered
[2025-04-22 15:20] VITALS: BP 122/65; PULSE 66; RESP 18; TEMP 36.6; O2SAT 96
[2025-04-22 16:06] LABS: Glucose, Whole Blood 191 mg/dL (60-115)
[2025-04-22 19:29] VITALS: BP 119/58; PULSE 65; RESP 18; TEMP 36.6; O2SAT 96
[2025-04-22 20:19] LABS: Glucose, Whole Blood 172 mg/dL (60-115)
[2025-04-23 03:01] VITALS: BP 104/57; PULSE 55; RESP 16; TEMP 36; O2SAT 96
[2025-04-23] MEDS: Omeprazole/Na Bicarb Oral Susp 20 MG/10 ML UD Cup G-TUBE (05:12)
--- NOTE | 2025-04-23 07:24 | PC.NURSE ---
Pt seen on bed alert and oriented x2, denies any pain, noted with occasional non prod cough, denies any pain, maintained on Droplet prec, meds tolerated whole with applesauce, pt kept asking for snacks thats not appropriate for his diet, reaffirm orders and reoriented, pt refused neb.
[2025-04-23 07:37] VITALS: BP 137/65; PULSE 55; RESP 16; TEMP 36.4; O2SAT 96
[2025-04-23] MEDS: Metoprolol Tartrate 12.5 MG HALFTAB PO ×2 (07:43→21:29)
[2025-04-23 07:52] LABS: Glucose, Whole Blood 140 mg/dL (60-115)
--- NOTE | 2025-04-23 08:02 | PC.NURSE ---
PT took all meds as prescribed , pt able to ambulated to commode with minimal assistance.
--- NOTE | 2025-04-23 08:26 | MHC.CM.PN ---
Addendum entered by Gabriella Santiago RN 04/23/25 10:32: Per Danni at [facility], patient approved for admission on Sunday. Addendum entered by Gabriella Santiago RN 04/23/25 10:24: Per [facility], they missed in clinical updates sent earlier in the week that patient tested + for Flu. They are unable to accept until Sunday, as they do not have a private room available. MD/RN updated. LM for thomas to update as well. Original Note: Thomas has completed admission paperwork for transfer to [facility] today. BLS transport booked for 12pm. LM for thomas w/ time. and RN aware. IMM delivered.
--- NOTE | 2025-04-23 09:50 | PM.DS ---
DS: Providers Provider Date of Service: 04/23/25 Date of admission: 02/16/25 18:06 Date of discharge: 04/23/25 Primary care physician: Cuco Ledezma DO Consults: 02/14/25 17:23 ED CARE Team Crisis Consult Stat Comment: Reason for consultation: SI on section 12? 02/14/25 18:53 Consult to Psychiatry Stat Consulting Provider: [facility] Reason for consultation: Medication Management 02/18/25 15:35 Consult to Pulmonology Routine Consulting Provider: [facility] Reason for consultation: hypoxemic respiratory failure /asp pneumonia Has provider been notified: No 02/20/25 14:42 Consult to Neurology Routine Consulting Provider: [facility] Reason for consultation: encephalopathy unclear etiology 02/20/25 17:05 Consult to Wound Care Routine Reason for consultation: Right Heel - Redness - nonblanchable Stage 1 02/27/25 12:13 Consult to General Surgery Routine Consulting Provider: [facility] Reason for consultation: poor intake/aspiration, ?gtube, guardian consented 03/06/25 08:28 Inpt CARE Team Crisis Consult Routine Comment: Reason for consultation: eval 04/08/25 01:52 Consult to Wound Care Routine Consulting Provider: [facility] Reason for consultation: right heel redness nonblanchable/coccyx/funagl to groin 04/18/25 00:58 Consult to Wound Care Routine Consulting Provider: [facility] W[facility] Reason for consultation: stage 1 R heel, redness to coccyx/left heel. fungal to groin 04/19/25 01:33 Consult to Wound Care Routine Consulting Provider: [facility] Management Reason for consultation: stage 1 to R heel, fungal to groin, Redness to buttocks, redness to L heel Attending physician on discharge: Lamonte Melchor Discharging clinician: Lamonte Melchor DS: Diagnosis Discharge Diagnosis (1) Schizoaffective disorder: Status: Acute (2) Alzheimer's dementia: Status: Acute (3) Pneumonia: Status: Acute DS: Summary Hospital Course Hospital Course: 69-year-old male with past medical history significant for schizoaffective disorder with psychotic features, MDD, T2 dm, GERD who presented to the ED on 02/14 for multiple falls. Patient was originally going to be admitted to Geriatric Psychiatry unit due to agitation and psychosis, however on 02/16 patient found to be encephalopathic and hypoxic. CT chest showed prominent amount of secretions in the airways greater than left lower lobe with bronchial wall thickening. Pain it was treated with IV Unasyn. Patient's course was complicated by dysphagia as well as not eating, after discussions with guardian Ashley Vo in February, agreed in placing G-tube, with G-tube placement on 03/02. During course, patient had psychiatric medications adjusted, ultimately placed on fluoxetine, perphenazine, valproic acid, clozapine and Valium. On 04/20 patient was having episodes of hypoxia and cough, with viral panel testing positive for influenza, started on Tamiflu and droplet precautions. On day of discharge, patient on room air, eating modified diet, stable to be discharged to [facility] facility. Pneumonia secondary to Influenza A, improving -labs and imaging reviewed -continue Tamiflu x 2 extra days, cough medication -continue duonebs q6hr -continue droplet precautions Dysphagia, s/p G-tube placement Evaluated by speech and swallow; recommended nectar-thickened liquids. Initially had poor oral intake and required TPN. Underwent G-tube placement on 03/02/2025. Tube feeds are being held while he is able to eat orally. Currently tolerating oral intake with NDD2 diet and nectar-thickened liquids. Schizoaffective disorder with psychotic features, chronic -Intermittent refusal of psychiatric medications and vital sign monitoring. Continue current regimen: fluoxetine, perphenazine (Trilafon), valproic acid (Depakote), clozapine (Clozaril), and valium. Psych follow-up as needed. Alzheimer dementia -continue delirium precautions, monitor for any behavioral disturbances Other Medical Issues: Diabetes, uncontrolled: continue Lantus 30 units; continue sliding scale insulin. Hypertension: No current management; blood pressure within normal limits Time Attestation Discharge Coordination Time (in mins): 35 minutes Quality: Safe Use of Opioids Does Pt have an Active Cancer Diagnosis on the Problem List?: No Quality: Stroke Does the patient have a stroke diagnosis?: No Physical Exam Exam: Exam: General: AxOx2, No acute distress Head: AT/NC ENT: Moist mucous membranes Neck: supple CVS; RRR, S1 S2 normal Lungs: Clear bilateral breath sounds, no wheezes or crackles Abd: Soft non tender, non distended, G tube in place Ext: No edema and no calf tenderness MSK: moving all 4 limbs Skin: No cyanosis or edema Psych: Cooperative with exam Neurology: no focal deficit Vital Signs: Vital Signs: Last Vital Signs Temp 97.5 F 04/23/25 07:37 Pulse 55 04/23/25 07:37 Resp 16 04/23/25 07:37 BP 137/65 04/23/25 07:37 Pulse Ox 96 04/23/25 07:37 O2 Del Method Room Air 04/23/25 07:37 O2 Flow Rate 3 03/07/25 23:35 BMI result Body Mass Index 23.3 DS: Data Data Completed and Pending Labs on day of discharge: Laboratory Results - last 24 hr 04/22/25 04/22/25 04/22/25 11:11 16:00 20:11 POC Glucose 237 H 191 H 172 H 04/23/25 07:39 POC Glucose 140 H Discharge Plan Discharge Anticipated Discharge Date/Time: 04/23/25 11:26 Patient Disposition: Xfer SNF Discharge Diagnosis: Pneumonia secondary to Influenza, dysphagia s/p G tube placement, schizoaffective disorder w/ psychotic features Referrals: Cuco Ledezma DO [Primary Care Provider, Hospitalist] - 1 Week Discharge Medications: New insulin glargine [Lantus U-100 Insulin] 100 unit/mL Solution 30 unit subcut DAILY 30 Days Qty: 9 0RF trazodone 50 mg Tablet 50 mg PO BEDTIME MRX1 PRN (Reason: Insomnia) 30 Days Qty: 30 0RF valproic acid 250 mg Capsule 500 mg PO BID 30 Days Qty: 120 0RF oseltamivir [Tamiflu] 75 mg Capsule 75 mg PO Q12H 2 Days Qty: 2 0RF nystatin [Nyamyc] 100,000 unit/gram Powder 1 appl topical BID 30 Days Qty: 10 0RF Protocol: Apply to: Apply to: affected area clozapine 25 mg Tablet 50 mg PO TID 30 Days Qty: 180 0RF insulin lispro [Admelog U-100 Insulin lispro] 100 unit/mL Solution See Protocol subcut QIDACHS 30 Days Qty: 3 0RF Protocol: Insulin Correction Scale Less than or equal to 110 ---- Give (units): 0 111 to 150 Give (units): 0 151 to 200 Give (units): 2 201 to 250 Give (units): 4 251 to 300 Give (units): 6 301 to 350 Give (units): 8 Greater than 350 Give (units): 10 Call MD if Blood Glucose > : 350 Continued perphenazine 4 mg tablet 4 mg PO BID Rx Instructions: TOTAL DOSE OF 6MG (COMBO WITH 2MG TABS) lorazepam 1 mg tablet 1 mg PO BID fluoxetine 40 mg Capsule 40 mg PO QPM Fleet Enema 19-7 gram/118 mL Enema 118 ml LA DAILY PRN (Reason: Constipation) Rx Instructions: Only if Bisacodyl is ineffective docusate sodium [Colace] 100 mg Capsule 100 mg PO BID sennosides [senna] 8.6 mg Tablet 8.6 mg PO DAILY perphenazine 2 mg Tablet 2 mg PO BID Patient Comments: TOTAL DOSE OF 6MG (COMBO WITH 4MG TABS) diazepam [Valium] 2 mg Tablet 3 mg PO BID pantoprazole 40 mg Tablet,Delayed Release (Dr/Ec) 40 mg PO DAILY metformin 1,000 mg Tablet 1,000 mg PO BID metoprolol tartrate 25 mg Tablet 12.5 mg PO BID Trulicity 3 mg/0.5 mL Pen Injector 3 mg SUBCUT QWEEK glucagon 1 mg/0.2 mL Solution 1 mg SUBCUT Q20M PRN (Reason: low BG) Rx Instructions: until target blood sugar attained Discontinued clozapine 100 mg tablet 300 mg PO TID divalproex 500 mg Tablet,Delayed Release (Dr/Ec) 500 mg PO BID insulin glargine [Lantus Solostar U-100 Insulin] 100 unit/mL (3 mL) Insulin Pen 24 unit SUBCUT QAM Discharge Orders: Discharge Order (Routine); Ordered 04/23/25 Ordered By: Lamonte Melchor Activity on Discharge: As tolerated Stand Alone Forms: Patient Portal Discharge page Print Language: Faroese Care Plan Goals: continue treatment for influenza A, monitor schizoaffective disorder and Alzheimer dementia Health Concerns: Schizoaffective disorder with episodes of psychosis Alzheimer Dementia Influenza A Plan of Treatment: continue fluoxetine, perphenazine, valproic acid, clozapine and valium continue Tamiflu for 2 extra days Assessment: 69-year-old male with a history of schizoaffective disorder (with psychotic features), major depressive disorder, diabetes, and GERD presented to the ED on 02/14/2025 after multiple falls. He was admitted for acute multifactorial encephalopathy, which was complicated by acute hypoxic respiratory failure secondary to aspiration pneumonia on 02/16/2025. On 04/20 presented w/ SOB and generalized weakness, tested positive for FLU-A and started on tamiflu Patient Instructions: Fall Prevention (ED)
--- NOTE | 2025-04-23 10:32 | P.PNIM_ITS ---
Subjective Subjective Date of Service: 04/23/25 Interval History: Patient seen examined at bedside this morning, patient continues on Tamiflu for influenza A. Plans on possible discharge to [facility] facility until Sunday. Review of Systems Review of Systems: Yes all other systems are reviewed and are negative Physical Exam 2 Exam: Exam: General: AxOx2, No acute distress Head: AT/NC ENT: Moist mucous membranes Neck: supple CVS; RRR, S1 S2 normal Lungs: Clear bilateral breath sounds, no wheezes or crackles Abd: Soft non tender, non distended, G tube in place Ext: No edema and no calf tenderness MSK: moving all 4 limbs Skin: No cyanosis or edema Psych: Cooperative with exam Neurology: no focal deficit Vital Signs: Vital Signs: Last Vital Signs Temp 97.5 F 04/23/25 07:37 Pulse 55 04/23/25 07:37 Resp 16 04/23/25 07:37 BP 137/65 04/23/25 07:37 Pulse Ox 96 04/23/25 07:37 O2 Del Method Room Air 04/23/25 07:37 O2 Flow Rate 3 03/07/25 23:35 BMI result Body Mass Index 23.3 Objective Data Active Medications Acetaminophen (Acetaminophen 325 Mg Tablet) 650 mg PO Q6H PRN PRN Reason: Headache/Pain, Scale 1-10 Al Hydroxide/Mg Hydroxide (Magnesium Hydrox/Alum Hydrox 30 Ml Oral.Susp) 30 ml PO Q6H PRN PRN Reason: Heartburn/Nausea Last Admin: 03/20/25 15:11 Dose: 30 ml Documented By: KERRI Albuterol/Ipratropium (Albuterol/Iprat 2.5/0.5mg 3 Ml Ampul.Neb) 3 ml INHALE RQ6H WHILE AWAKE [facility] Last Admin: 04/23/25 07:55 Dose: Not Given Documented By: NICKY Non-Admin Reason: Patient Refused Bisacodyl (Bisacodyl 10 Mg Supp.Rect) 10 mg DC BEDTIME PRN PRN Reason: Constipation Calcium Carbonate (Calcium Carbonate 750 Mg Tab.Chew) 750 mg PO Q4H PRN PRN Reason: Heartburn Clozapine (Clozapine 25 Mg Tablet) 50 mg PO TID [facility] Last Admin: 04/23/25 07:44 Dose: 50 mg Documented By: CARTER Dextrose (Dextrose 50 % 25 Gm/50 Ml Syringe) 25 gm IVPUSH Q15M PRN; Protocol PRN Reason: per Hypoglycemia Standing Ord. Docusate Sodium (Docusate Sodium 100 Mg/10 Ml Liquid) 100 mg G-TUBE BID [facility] Last Admin: 04/23/25 07:47 Dose: Not Given Documented By: CARTER Non-Admin Reason: Patient Refused Enoxaparin Sodium (Enoxaparin Sodium 40 Mg/0.4 Ml Syringe) 40 mg SUBCUT Q24H NATE Last Admin: 04/23/25 09:32 Dose: Not Given Documented By: DABA Non-Admin Reason: pt being discharged pt refused Fluoxetine HCl (Fluoxetine Hcl 20 Mg Capsule) 40 mg PO BEDTIME NATE On Hold: 02/22/25 14:23 Last Admin: 02/21/25 22:23 Dose: Not Given Documented By: PAPITO Non-Admin Reason: pt refused Glucagon (Glucagon Hcl 1 Mg Vial) 1 mg IM Q20M PRN PRN Reason: low BG Glucose (Glucose Gel 15 Gm Gel..Gram.) 15 gm PO Q15M PRN; Protocol PRN Reason: per Hypoglycemia Standing Ord. Hydralazine HCl (Hydralazine Hcl 20 Mg/Ml Vial) 5 mg IVPUSH Q6H PRN; Protocol PRN Reason: htn Last Admin: 02/23/25 17:30 Dose: 5 mg Documented By: JAYME Insulin Glargine (Insulin Glargine,Hum.Rec.Anlog 100 Unit/Ml 10 Ml Vial) 30 unit SUBCUT DAILY [facility] On Hold: 03/14/25 09:00 Insulin Human Lispro (Insulin Lispro 100 Unit/Ml 3 Ml Vial) 0 unit SUBCUT QIDACHS [facility]; Protocol Last Admin: 04/23/25 07:46 Dose: Not Given Documented By: CARTER Non-Admin Reason: No Insulin Coverage Magnesium Hydroxide (Milk Of Magnesia 30 Ml Oral.Susp) 30 ml PO DAILY PRN PRN Reason: Constipation Last Admin: 04/18/25 15:58 Dose: 30 ml Documented By: COLOKSANA Melatonin (Melatonin 3 Mg Tablet) 6 mg PO BEDTIME PRN PRN Reason: Insomnia Last Admin: 04/18/25 20:37 Dose: 6 mg Documented By: HO.ORLANDV Metoprolol Tartrate (Metoprolol Tartrate 12.5 Mg Halftab) 12.5 mg PO BID [facility]; Protocol Last Admin: 04/23/25 07:43 Dose: 12.5 mg Documented By: CARTER Naloxone HCl (Naloxone Hcl 0.4 Mg/Ml Vial) 0.04 mg IVPUSH Q5M PRN PRN Reason: Excessive sedation or RR < 8 Nystatin (Nystatin Powder 15 Gm Bottle) 1 appl TOPICAL BID [facility]; Protocol Last Admin: 04/23/25 07:47 Dose: Not Given Documented By: CARTER Non-Admin Reason: Patient Refused Omeprazole (Omeprazole/Na Bicarb Oral Susp 20 Mg/10 Ml Ud Cup) 20 mg G-TUBE DAILY@0630 [facility] Last Admin: 04/23/25 05:12 Dose: 20 mg Documented By: BENEDICT Oseltamivir Phosphate (Oseltamivir Phosphate 75 Mg Capsule) 75 mg PO Q12H [facility] Stop: 04/25/25 09:01 Last Admin: 04/23/25 07:44 Dose: 75 mg Documented By: CARTER Perphenazine (Perphenazine 2 Mg Tablet) 2 mg PO BID [facility] Last Admin: 04/23/25 07:43 Dose: 2 mg Documented By: CARTER Perphenazine (Perphenazine 4 Mg Tablet) 4 mg PO BID [facility] Last Admin: 04/23/25 07:43 Dose: 4 mg Documented By: CARTER Senna (Sennosides 8.6 Mg Tablet) 8.6 mg PO DAILY [facility] Last Admin: 04/23/25 07:44 Dose: 8.6 mg Documented By: CARTER Sodium Biphosphate/Sodium Phosphate (Sodium Phosphate,[place]-Dibasic 133 Ml Enema) 133 ml DC DAILY PRN PRN Reason: Constipation Last Admin: 03/11/25 12:18 Dose: 133 ml Documented By: STEPHANE Trazodone HCl (Trazodone Hcl 50 Mg Tablet) 50 mg PO BEDTIME MRX1 PRN PRN Reason: Insomnia Last Admin: 04/21/25 21:11 Dose: 50 mg Documented By: SHINE Valproic Acid (Valproic Acid 250 Mg Capsule) 500 mg PO BID [facility] Last Admin: 04/23/25 07:43 Dose: 500 mg Documented By: CARTER Labs 04/20/25 12:29 04/20/25 12:29 Labs: Laboratory Results - last 24 hr 04/22/25 04/22/25 04/22/25 11:11 16:00 20:11 POC Glucose 237 H 191 H 172 H 04/23/25 07:39 POC Glucose 140 H Assessment and Plan (1) Schizoaffective disorder: Status: Acute (2) Alzheimer's dementia: Status: Acute (3) Pneumonia: Status: Acute Plan 69-year-old male with past medical history significant for schizoaffective disorder with psychotic features, MDD, T2 dm, GERD who presented to the ED on 02/14 for multiple falls. Patient was originally going to be admitted to Geriatric Psychiatry unit due to agitation and psychosis, however on 02/16 patient found to be encephalopathic and hypoxic. CT chest showed prominent amount of secretions in the airways greater than left lower lobe with bronchial wall thickening. Pain it was treated with IV Unasyn. Patient's course was complicated by dysphagia as well as not eating, after discussions with guardian Ashley Vo in February, agreed in placing G-tube, with G-tube placement on 03/02. During course, patient had psychiatric medications adjusted, ultimately placed on fluoxetine, perphenazine, valproic acid, clozapine and Valium. On 04/20 patient was having episodes of hypoxia and cough, with viral panel testing positive for influenza, started on Tamiflu and droplet precautions. Pneumonia secondary to Influenza A, improving -labs and imaging reviewed -continue Tamiflu x 2 extra days, cough medication -continue duonebs q6hr -continue droplet precautions Dysphagia, s/p G-tube placement Evaluated by speech and swallow; recommended nectar-thickened liquids. Initially had poor oral intake and required TPN. Underwent G-tube placement on 03/02/2025. Tube feeds are being held while he is able to eat orally. Currently tolerating oral intake with NDD2 diet and nectar-thickened liquids. Schizoaffective disorder with psychotic features, chronic -Intermittent refusal of psychiatric medications and vital sign monitoring. Continue current regimen: fluoxetine, perphenazine (Trilafon), valproic acid (Depakote), clozapine (Clozaril), and valium. Psych follow-up as needed. Alzheimer dementia -continue delirium precautions, monitor for any behavioral disturbances Other Medical Issues: Diabetes, uncontrolled: continue Lantus 30 units; continue sliding scale insulin. Hypertension: No current management; blood pressure within normal limits Total time managing care of this patient today: 35 minutes. Quality Stroke Does the patient have a stroke diagnosis?: No VTE Prior VTE?: No VTE Risk Level:: Medical - moderate - high VTE Device Contraindication: Treatment Not Indicated VTE Drug Contraindication: N/A - Med Ordered
[2025-04-23 11:48] LABS: Glucose, Whole Blood 240 mg/dL (60-115)
[2025-04-23 16:37] VITALS: BP 115/77; PULSE 68; RESP 18; TEMP 36.6; O2SAT 95
[2025-04-23 16:38] LABS: Glucose, Whole Blood 206 mg/dL (60-115)
[2025-04-23 20:00] VITALS: BP 132/60; PULSE 72; RESP 18; TEMP 36.2; O2SAT 94
[2025-04-23 21:15] LABS: Glucose, Whole Blood 191 mg/dL (60-115)
[2025-04-24 04:00] VITALS: BP 110/60; PULSE 60; RESP 18; TEMP 36; O2SAT 95
[2025-04-24] MEDS: Omeprazole/Na Bicarb Oral Susp 20 MG/10 ML UD Cup G-TUBE (05:12)
[2025-04-24 06:25] LABS: Neut%MD 37.4 %; WBCANC 5.3 X10*3/uL
[2025-04-24 07:33] LABS: Glucose, Whole Blood 206 mg/dL (60-115)
[2025-04-24 07:40] VITALS: BP 142/69; PULSE 62; RESP 16; TEMP 36.6; O2SAT 96
[2025-04-24] MEDS: Metoprolol Tartrate 12.5 MG HALFTAB PO ×2 (07:47→21:13)
--- NOTE | 2025-04-24 09:40 | HO.WOUND ---
Wound Consult: Follow up 69 yr old male admitted to [facility] on 02/16/25 - See progress notes and H&P for detailed history. Wound team following for right heel, coccyx and groin. Patient agreeable to assessment and photo documentation. Patient reports that he does not want foam dressing on coccyx - educated on purpose and patient still declines- per direct care team patient has been removing it at times. Educated patient on importance of position changes to prevent skin injury- patient agreeable. Right heel Etiology: previous stage 1 pressure injury - now intact pink and blanching Wound Bed: intact pink and blanching with surrounding thick dry peeling skin Drainage / Odor: none Coco wound: ? No Induration, Fluctuance or Warmth noted Pain: none Goals of Treatment: ? offloading with foams- routine hygiene with moisturizer Coccyx Etiology: intact blanchable redness Wound Bed: intact blanchable redness Drainage / Odor: none Coco wound: ? No Induration, Fluctuance or Warmth noted Pain: none Goals of Treatment: ? offloading/ barrier cream - recommend foam patient declining at times and removing at times Left heel- intact pink and blanching- foams in place Recommendations: 1. Turn and Reposition every 2 hours and as needed for patient comfort. Use pillows or wedges to support off loading positions. 2. Off Load all bony prominences with use of pillows and heel boots if needed. Apply Preventative foams where needed. 3. Monitor for incontinence and moisture control, use barrier creams when needed for prevention and treatment. 4. Provide adequate and supplemental nutrition. 5. Order or Continue low air loss mattress. 6. When applicable maintain blood glucose levels per Providers order. Groin: gentle routine hygiene and incontinence care with pH balanced cleanser and bath wipes. antifungal medication per provider orders: apply a light dusting to prevent caking. apply triad paste BID and PRN. use disposable pads underneath patient when in chair or bed. use proactive toileting to promote continence. Bilateral heels: Elevate heels off of bed surface with pillows. Float heels off of pillows. Apply skin prep allow to dry. Apply heel foam dressings, peel back and assess Q shift and change every 5-7 days and PRN. Coccyx/buttocks: Off Load Pressure with Q2 hr turns and use of pillows - Cleanse with PH balance spray or wipes, pat dry. Apply foam dressing, change every 3 days, if patient agreeable. OR ?Apply thin layer of Triad to wound bed. Do not remove all of paste between applications as this may cause further skin damage, apply daily and PRN Re-consult wound care Nurse for wound deterioration or wound changes.
--- NOTE | 2025-04-24 10:15 | MHC.CM.PN ---
Plan for dc to [facility] on Friday 04/27.
[2025-04-24 11:38] LABS: Glucose, Whole Blood 129 mg/dL (60-115)
--- NOTE | 2025-04-24 12:15 | HO.PM.IMPN ---
Subjective Subjective Date of Service: 04/24/25 Interval History: Patient seen examined at bedside this morning, patient states that he is feeling okay, refusing nebulizing treatments, states that he wishes to have inhaler at bedside. Review of Systems Review of Systems: Yes all other systems are reviewed and are negative Physical Exam Exam: Exam: General: AxOx3, No acute distress Head: AT/NC ENT: Moist mucous membranes Neck: supple CVS; RRR, S1 S2 normal Lungs: Coarse bilateral breath sounds Abd: Soft non tender, non distended Ext: No edema and no calf tenderness MSK: moving all 4 limbs Skin: No cyanosis or edema Psych: Cooperative with exam Neurology: no focal deficit Vital Signs: Vital Signs: Last Vital Signs Temp 97.8 F 04/24/25 07:40 Pulse 62 04/24/25 07:40 Resp 16 04/24/25 07:40 BP 142/69 H 04/24/25 07:40 Pulse Ox 96 04/24/25 07:40 O2 Del Method Room Air 04/24/25 07:40 O2 Flow Rate 3 03/07/25 23:35 BMI result Body Mass Index 23.3 Objective Data Active Medications Acetaminophen (Acetaminophen 325 Mg Tablet) 650 mg PO Q6H PRN PRN Reason: Headache/Pain, Scale 1-10 Al Hydroxide/Mg Hydroxide (Magnesium Hydrox/Alum Hydrox 30 Ml Oral.Susp) 30 ml PO Q6H PRN PRN Reason: Heartburn/Nausea Last Admin: 03/20/25 15:11 Dose: 30 ml Documented By: KERRI Albuterol Sulfate (Albuterol Sulfate 90 Mcg 8 Gm Inhaler) 1 puff INHALE RQ6H PRN PRN Reason: Shortness of Breath/Wheezing Bisacodyl (Bisacodyl 10 Mg Supp.Rect) 10 mg [place] BEDTIME PRN PRN Reason: Constipation Calcium Carbonate (Calcium Carbonate 750 Mg Tab.Chew) 750 mg PO Q4H PRN PRN Reason: Heartburn Clozapine (Clozapine 25 Mg Tablet) 50 mg PO TID [facility] Last Admin: 04/24/25 07:47 Dose: 50 mg Documented By: HEATHER Dextrose (Dextrose 50 % 25 Gm/50 Ml Syringe) 25 gm IVPUSH Q15M PRN; Protocol PRN Reason: per Hypoglycemia Standing Ord. Docusate Sodium (Docusate Sodium 100 Mg/10 Ml Liquid) 100 mg G-TUBE BID [facility] Last Admin: 04/24/25 07:47 Dose: Not Given Documented By: HEATHER Non-Admin Reason: Patient Refused Enoxaparin Sodium (Enoxaparin Sodium 40 Mg/0.4 Ml Syringe) 40 mg SUBCUT Q24H [facility] Last Admin: 04/24/25 07:46 Dose: 40 mg Documented By: HEATHER Fluoxetine HCl (Fluoxetine Hcl 20 Mg Capsule) 40 mg PO BEDTIME NATE On Hold: 02/22/25 14:23 Last Admin: 02/21/25 22:23 Dose: Not Given Documented By: PAPITO Non-Admin Reason: pt refused Glucagon (Glucagon Hcl 1 Mg Vial) 1 mg IM Q20M PRN PRN Reason: low BG Glucose (Glucose Gel 15 Gm Gel..Gram.) 15 gm PO Q15M PRN; Protocol PRN Reason: per Hypoglycemia Standing Ord. Hydralazine HCl (Hydralazine Hcl 20 Mg/Ml Vial) 5 mg IVPUSH Q6H PRN; Protocol PRN Reason: htn Last Admin: 02/23/25 17:30 Dose: 5 mg Documented By: JAYME Insulin Glargine (Insulin Glargine,Hum.Rec.Anlog 100 Unit/Ml 10 Ml Vial) 30 unit SUBCUT DAILY [facility] On Hold: 03/14/25 09:00 Insulin Human Lispro (Insulin Lispro 100 Unit/Ml 3 Ml Vial) 0 unit SUBCUT QIDACHS [facility]; Protocol Last Admin: 04/24/25 11:40 Dose: Not Given Documented By: HEATHER Non-Admin Reason: No Insulin Coverage Magnesium Hydroxide (Milk Of Magnesia 30 Ml Oral.Susp) 30 ml PO DAILY PRN PRN Reason: Constipation Last Admin: 04/18/25 15:58 Dose: 30 ml Documented By: COLBURJuaquin Melatonin (Melatonin 3 Mg Tablet) 6 mg PO BEDTIME PRN PRN Reason: Insomnia Last Admin: 04/18/25 20:37 Dose: 6 mg Documented By: CAROLINA Metoprolol Tartrate (Metoprolol Tartrate 12.5 Mg Halftab) 12.5 mg PO BID [facility]; Protocol Last Admin: 04/24/25 07:47 Dose: 12.5 mg Documented By: HEATHER Naloxone HCl (Naloxone Hcl 0.4 Mg/Ml Vial) 0.04 mg IVPUSH Q5M PRN PRN Reason: Excessive sedation or RR < 8 Nystatin (Nystatin Powder 15 Gm Bottle) 1 appl TOPICAL BID [facility]; Protocol Last Admin: 04/24/25 07:51 Dose: Not Given Documented By: HEATHER Non-Admin Reason: Previously Administered Omeprazole (Omeprazole/Na Bicarb Oral Susp 20 Mg/10 Ml Ud Cup) 20 mg G-TUBE DAILY@0630 [facility] Last Admin: 04/24/25 05:12 Dose: 20 mg Documented By: HEATHER Oseltamivir Phosphate (Oseltamivir Phosphate 75 Mg Capsule) 75 mg PO Q12H [facility] Stop: 04/25/25 09:01 Last Admin: 04/24/25 07:46 Dose: 75 mg Documented By: HEATHER Perphenazine (Perphenazine 2 Mg Tablet) 2 mg PO BID [facility] Last Admin: 04/24/25 07:46 Dose: 2 mg Documented By: HEATHER Perphenazine (Perphenazine 4 Mg Tablet) 4 mg PO BID [facility] Last Admin: 04/24/25 07:51 Dose: 4 mg Documented By: HEATHER Senna (Sennosides 8.6 Mg Tablet) 8.6 mg PO DAILY [facility] Last Admin: 04/24/25 07:47 Dose: 8.6 mg Documented By: HEATHER Sodium Biphosphate/Sodium Phosphate (Sodium Phosphate,[place]-Dibasic 133 Ml Enema) 133 ml [place] DAILY PRN PRN Reason: Constipation Last Admin: 03/11/25 12:18 Dose: 133 ml Documented By: STEPHANE Trazodone HCl (Trazodone Hcl 50 Mg Tablet) 50 mg PO BEDTIME MRX1 PRN PRN Reason: Insomnia Last Admin: 04/21/25 21:11 Dose: 50 mg Documented By: SHINE Valproic Acid (Valproic Acid 250 Mg Capsule) 500 mg PO BID [facility] Last Admin: 04/24/25 07:46 Dose: 500 mg Documented By: HEATHER Labs 04/20/25 12:29 04/20/25 12:29 Labs: Laboratory Results - last 24 hr 04/23/25 04/23/25 04/24/25 16:32 21:08 05:53 Absolute Neuts (auto) 2.0 POC Glucose 206 H 191 H 04/24/25 04/24/25 07:24 11:34 Absolute Neuts (auto) POC Glucose 206 H 129 H Assessment and Plan (1) Schizoaffective disorder: Status: Acute (2) Alzheimer's dementia: Status: Acute (3) Pneumonia: Status: Acute Plan 69-year-old male with past medical history significant for schizoaffective disorder with psychotic features, MDD, T2 dm, GERD who presented to the ED on 02/14 for multiple falls. Patient was originally going to be admitted to Geriatric Psychiatry unit due to agitation and psychosis, however on 02/16 patient found to be encephalopathic and hypoxic. CT chest showed prominent amount of secretions in the airways greater than left lower lobe with bronchial wall thickening. Pain it was treated with IV Unasyn. Patient's course was complicated by dysphagia as well as not eating, after discussions with guardian Ashley Vo in February, agreed in placing G-tube, with G-tube placement on 03/02. During course, patient had psychiatric medications adjusted, ultimately placed on fluoxetine, perphenazine, valproic acid, clozapine and Valium. On 04/20 patient was having episodes of hypoxia and cough, with viral panel testing positive for influenza, started on Tamiflu and droplet precautions. Pneumonia secondary to Influenza A, improving -labs and imaging reviewed -continue Tamiflu x 1 extra day, cough medication -d/c duonebs q6hr as patient refused and state he does not want to have duonebs, accepts in doing albuterol inhaler -continue droplet precautions Dysphagia, s/p G-tube placement Evaluated by speech and swallow; recommended nectar-thickened liquids. Initially had poor oral intake and required TPN. Underwent G-tube placement on 03/02/2025. Tube feeds are being held while he is able to eat orally. Currently tolerating oral intake with NDD2 diet and nectar-thickened liquids. Schizoaffective disorder with psychotic features, chronic -Intermittent refusal of psychiatric medications and vital sign monitoring. Continue current regimen: fluoxetine, perphenazine (Trilafon), valproic acid (Depakote), clozapine (Clozaril), and valium. Psych follow-up as needed. Alzheimer dementia -continue delirium precautions, monitor for any behavioral disturbances Other Medical Issues: Diabetes, uncontrolled: continue Lantus 30 units; continue sliding scale insulin. Hypertension: No current management; blood pressure within normal limits Total time managing care of this patient today: 35 minutes. Quality Stroke Does the patient have a stroke diagnosis?: No VTE Prior VTE?: No VTE Risk Level:: Medical - moderate - high VTE Device Contraindication: Treatment Not Indicated VTE Drug Contraindication: N/A - Med Ordered
[2025-04-24 15:35] VITALS: BP 140/60; PULSE 63; RESP 18; TEMP 36.3; O2SAT 98
[2025-04-24 16:26] LABS: Glucose, Whole Blood 300 mg/dL (60-115)
[2025-04-24 19:49] VITALS: BP 151/63; PULSE 68; RESP 18; TEMP 36.1; O2SAT 97
[2025-04-24 20:05] LABS: Glucose, Whole Blood 226 mg/dL (60-115)
[2025-04-25 03:35] VITALS: BP 134/64; PULSE 64; RESP 18; TEMP 36.3; O2SAT 93
[2025-04-25] MEDS: Omeprazole/Na Bicarb Oral Susp 20 MG/10 ML UD Cup G-TUBE (05:21)
[2025-04-25 07:14] LABS: Glucose, Whole Blood 140 mg/dL (60-115)
[2025-04-25 07:41] VITALS: BP 123/68; PULSE 60; RESP 18; TEMP 36.7; O2SAT 95
[2025-04-25] MEDS: Metoprolol Tartrate 12.5 MG HALFTAB PO ×2 (09:35→20:19)
--- NOTE | 2025-04-25 09:51 | HO.PM.IMPN ---
Subjective Subjective Date of Service: 04/25/25 Interval History: Patient seen examined at bedside this morning, patient states that he is feeling well, completed Tamiflu for influenza, at this time mentioned that wishes to be discharged. Denies any chest pain, shortness of breath or palpitations. Review of Systems Review of Systems: Yes all other systems are reviewed and are negative Physical Exam Exam: Exam: General: AxOx2, No acute distress Head: AT/NC ENT: Moist mucous membranes Neck: supple CVS; RRR, S1 S2 normal Lungs: Clear bilateral breath sounds, no wheezes or crackles Abd: Soft non tender, non distended Ext: No edema and no calf tenderness MSK: moving all 4 limbs Skin: No cyanosis or edema Psych: Cooperative with exam Neurology: no focal deficit Vital Signs: Vital Signs: Last Vital Signs Temp 98.0 F 04/25/25 07:41 Pulse 60 04/25/25 07:41 Resp 18 04/25/25 07:41 BP 123/68 04/25/25 07:41 Pulse Ox 95 04/25/25 07:41 O2 Del Method Room Air 04/25/25 07:41 O2 Flow Rate 3 03/07/25 23:35 BMI result Body Mass Index 23.3 Objective Data Active Medications Acetaminophen (Acetaminophen 325 Mg Tablet) 650 mg PO Q6H PRN PRN Reason: Headache/Pain, Scale 1-10 Al Hydroxide/Mg Hydroxide (Magnesium Hydrox/Alum Hydrox 30 Ml Oral.Susp) 30 ml PO Q6H PRN PRN Reason: Heartburn/Nausea Last Admin: 03/20/25 15:11 Dose: 30 ml Documented By: KERRI Albuterol Sulfate (Albuterol Sulfate 90 Mcg 8 Gm Inhaler) 1 puff INHALE RQ6H PRN PRN Reason: Shortness of Breath/Wheezing Bisacodyl (Bisacodyl 10 Mg Supp.Rect) 10 mg [place] BEDTIME PRN PRN Reason: Constipation Calcium Carbonate (Calcium Carbonate 750 Mg Tab.Chew) 750 mg PO Q4H PRN PRN Reason: Heartburn Clozapine (Clozapine 25 Mg Tablet) 50 mg PO TID [facility] Last Admin: 04/25/25 09:35 Dose: 50 mg Documented By: DEONNA Dextrose (Dextrose 50 % 25 Gm/50 Ml Syringe) 25 gm IVPUSH Q15M PRN; Protocol PRN Reason: per Hypoglycemia Standing Ord. Docusate Sodium (Docusate Sodium 100 Mg/10 Ml Liquid) 100 mg G-TUBE BID [facility] Last Admin: 04/24/25 21:14 Dose: Not Given Documented By: WES Non-Admin Reason: Patient Refused Enoxaparin Sodium (Enoxaparin Sodium 40 Mg/0.4 Ml Syringe) 40 mg SUBCUT Q24H [facility] Last Admin: 04/25/25 09:35 Dose: 40 mg Documented By: DEONNA Fluoxetine HCl (Fluoxetine Hcl 20 Mg Capsule) 40 mg PO BEDTIME [facility] On Hold: 02/22/25 14:23 Last Admin: 02/21/25 22:23 Dose: Not Given Documented By: PAPITO Non-Admin Reason: pt refused Glucagon (Glucagon Hcl 1 Mg Vial) 1 mg IM Q20M PRN PRN Reason: low BG Glucose (Glucose Gel 15 Gm Gel..Gram.) 15 gm PO Q15M PRN; Protocol PRN Reason: per Hypoglycemia Standing Ord. Hydralazine HCl (Hydralazine Hcl 20 Mg/Ml Vial) 5 mg IVPUSH Q6H PRN; Protocol PRN Reason: htn Last Admin: 02/23/25 17:30 Dose: 5 mg Documented By: JAYME Insulin Glargine (Insulin Glargine,Hum.Rec.Anlog 100 Unit/Ml 10 Ml Vial) 30 unit SUBCUT DAILY [facility] On Hold: 03/14/25 09:00 Insulin Human Lispro (Insulin Lispro 100 Unit/Ml 3 Ml Vial) 0 unit SUBCUT QIDACHS [facility]; Protocol Last Admin: 04/25/25 08:38 Dose: Not Given Documented By: DEONNA Non-Admin Reason: No Insulin Coverage Magnesium Hydroxide (Milk Of Magnesia 30 Ml Oral.Susp) 30 ml PO DAILY PRN PRN Reason: Constipation Last Admin: 04/18/25 15:58 Dose: 30 ml Documented By: COLBURJuaquin Melatonin (Melatonin 3 Mg Tablet) 6 mg PO BEDTIME PRN PRN Reason: Insomnia Last Admin: 04/18/25 20:37 Dose: 6 mg Documented By: CAROLINA Metoprolol Tartrate (Metoprolol Tartrate 12.5 Mg Halftab) 12.5 mg PO BID [facility]; Protocol Last Admin: 04/25/25 09:35 Dose: 12.5 mg Documented By: DEONNA Naloxone HCl (Naloxone Hcl 0.4 Mg/Ml Vial) 0.04 mg IVPUSH Q5M PRN PRN Reason: Excessive sedation or RR < 8 Nystatin (Nystatin Powder 15 Gm Bottle) 1 appl TOPICAL BID [facility]; Protocol Last Admin: 04/25/25 09:34 Dose: 1 appl Documented By: DEONNA Omeprazole (Omeprazole/Na Bicarb Oral Susp 20 Mg/10 Ml Ud Cup) 20 mg G-TUBE DAILY@0630 [facility] Last Admin: 04/25/25 05:21 Dose: 20 mg Documented By: LEFLINDA Perphenazine (Perphenazine 2 Mg Tablet) 2 mg PO BID [facility] Last Admin: 04/25/25 09:35 Dose: 2 mg Documented By: DEONNA Perphenazine (Perphenazine 4 Mg Tablet) 4 mg PO BID [facility] Last Admin: 04/25/25 09:35 Dose: 4 mg Documented By: DEONNA Senna (Sennosides 8.6 Mg Tablet) 8.6 mg PO DAILY [facility] Last Admin: 04/25/25 09:35 Dose: 8.6 mg Documented By: DEONNA Sodium Biphosphate/Sodium Phosphate (Sodium Phosphate,[place]-Dibasic 133 Ml Enema) 133 ml [place] DAILY PRN PRN Reason: Constipation Last Admin: 03/11/25 12:18 Dose: 133 ml Documented By: STEPHANE Trazodone HCl (Trazodone Hcl 50 Mg Tablet) 50 mg PO BEDTIME MRX1 PRN PRN Reason: Insomnia Last Admin: 04/21/25 21:11 Dose: 50 mg Documented By: SHINE Valproic Acid (Valproic Acid 250 Mg Capsule) 500 mg PO BID [facility] Last Admin: 04/25/25 09:36 Dose: 500 mg Documented By: DEONNA Labs 04/20/25 12:29 04/20/25 12:29 Labs: Laboratory Results - last 24 hr 04/24/25 04/24/25 04/24/25 11:34 16:22 20:00 POC Glucose 129 H 300 H 226 H 04/25/25 07:11 POC Glucose 140 H Assessment and Plan (1) Schizoaffective disorder: Status: Acute (2) Alzheimer's dementia: Status: Acute Plan 69-year-old male with past medical history significant for schizoaffective disorder with psychotic features, MDD, T2 dm, GERD who presented to the ED on 02/14 for multiple falls. Patient was originally going to be admitted to Geriatric Psychiatry unit due to agitation and psychosis, however on 02/16 patient found to be encephalopathic and hypoxic. CT chest showed prominent amount of secretions in the airways greater than left lower lobe with bronchial wall thickening. Pain it was treated with IV Unasyn. Patient's course was complicated by dysphagia as well as not eating, after discussions with guardian Ashley Vo in February, agreed in placing G-tube, with G-tube placement on 03/02. During course, patient had psychiatric medications adjusted, ultimately placed on fluoxetine, perphenazine, valproic acid, clozapine and Valium. On 04/20 patient was having episodes of hypoxia and cough, with viral panel testing positive for influenza, completed Tamiflu on 04/25. Awaiting Discharge to Rehab Pneumonia secondary to Influenza A, resolved -labs and imaging reviewed -completed Tamiflu -continue cough medication -d/c duonebs q6hr as patient refused and state he does not want to have duonebs, accepts in doing albuterol inhaler -no longer requires droplet precautions Dysphagia, s/p G-tube placement Evaluated by speech and swallow; recommended nectar-thickened liquids. Initially had poor oral intake and required TPN. Underwent G-tube placement on 03/02/2025. Tube feeds are being held while he is able to eat orally. Currently tolerating oral intake with NDD2 diet and nectar-thickened liquids. Schizoaffective disorder with psychotic features, chronic -Intermittent refusal of psychiatric medications and vital sign monitoring. Continue current regimen: fluoxetine, perphenazine (Trilafon), valproic acid (Depakote), clozapine (Clozaril), and valium. Psych follow-up as needed. Alzheimer dementia -continue delirium precautions, monitor for any behavioral disturbances Other Medical Issues: Diabetes, uncontrolled: continue Lantus 30 units; continue sliding scale insulin. Hypertension: No current management; blood pressure within normal limits Total time managing care of this patient today: 35 minutes. Quality Stroke Does the patient have a stroke diagnosis?: No VTE Prior VTE?: No VTE Risk Level:: Medical - moderate - high VTE Device Contraindication: Treatment Not Indicated VTE Drug Contraindication: N/A - Med Ordered
[2025-04-25 11:39] LABS: Glucose, Whole Blood 243 mg/dL (60-115)
--- NOTE | 2025-04-25 12:40 | PC.NURSE ---
Pt calm and cooperative, states he is nervous about leaving here for new facility/
[2025-04-25 15:26] VITALS: BP 123/60; PULSE 63; RESP 18; TEMP 36.1; O2SAT 97
[2025-04-25 16:32] LABS: Glucose, Whole Blood 220 mg/dL (60-115)
[2025-04-25 20:00] VITALS: BP 136/63; PULSE 78; RESP 18; TEMP 36.3; O2SAT 97
--- NOTE | 2025-04-25 20:00 | PC.NURSE ---
Addendum entered by Santy Ortiz RN 04/26/25 07:34: Staff states he called the police because the patient states his Nephew is stealing his money. No new calls overnight or this AM. Original Note: Security arrived to bedside after being informed pt was making 911 calls at shift change at approx 19:20. This RN and security went in patients room and pt states he wanted this RN to leave room. Security left pt room shortly after this RN. At approx 19:30 Pt resting in position of comfort with respirations even and unlabored.
[2025-04-25 20:02] LABS: Glucose, Whole Blood 266 mg/dL (60-115)
[2025-04-26 03:28] VITALS: BP 133/79; PULSE 63; RESP 18; TEMP 36.3; O2SAT 93
[2025-04-26] MEDS: Omeprazole/Na Bicarb Oral Susp 20 MG/10 ML UD Cup G-TUBE (05:47)
[2025-04-26 07:20] LABS: Glucose, Whole Blood 194 mg/dL (60-115)
[2025-04-26 07:45] VITALS: BP 124/66; PULSE 62; RESP 18; TEMP 36.3; O2SAT 98
[2025-04-26] MEDS: Metoprolol Tartrate 12.5 MG HALFTAB PO ×2 (09:26→20:42)
--- NOTE | 2025-04-26 10:33 | PC.NURSE ---
Pt calm and cooperative with care today.
[2025-04-26 11:08] LABS: Glucose, Whole Blood 221 mg/dL (60-115)
--- NOTE | 2025-04-26 11:41 | P.PNIM_ITS ---
Subjective Subjective Date of Service: 04/26/25 Interval History: Patient seen examined at bedside this morning, patient states that he is feeling well, denies any chest pain, shortness of breath, cough. Patient mentions that he is eager to d/c as he has been here for almost 70 days. Patient awaiting for possible discharge tomorrow. Review of Systems Review of Systems: Yes all other systems are reviewed and are negative Physical Exam 2 Exam: Exam: General: AxOx3, No acute distress Head: AT/NC ENT: Moist mucous membranes Neck: supple CVS; RRR, S1 S2 normal Lungs: Clear bilateral breath sounds, no wheezes or crackles Abd: Soft non tender, non distended, G-tube in place Ext: No edema and no calf tenderness MSK: moving all 4 limbs Skin: No cyanosis or edema Psych: Cooperative with exam Neurology: no focal deficit Vital Signs: Vital Signs: Last Vital Signs Temp 97.4 F 04/26/25 07:45 Pulse 62 04/26/25 07:45 Resp 18 04/26/25 07:45 BP 124/66 04/26/25 07:45 Pulse Ox 98 04/26/25 07:45 O2 Del Method Room Air 04/26/25 07:45 O2 Flow Rate 3 03/07/25 23:35 BMI result Body Mass Index 23.3 Objective Data Active Medications Acetaminophen (Acetaminophen 325 Mg Tablet) 650 mg PO Q6H PRN PRN Reason: Headache/Pain, Scale 1-10 Al Hydroxide/Mg Hydroxide (Magnesium Hydrox/Alum Hydrox 30 Ml Oral.Susp) 30 ml PO Q6H PRN PRN Reason: Heartburn/Nausea Last Admin: 03/20/25 15:11 Dose: 30 ml Documented By: KERRI Albuterol Sulfate (Albuterol Sulfate 90 Mcg 8 Gm Inhaler) 1 puff INHALE RQ6H PRN PRN Reason: Shortness of Breath/Wheezing Bisacodyl (Bisacodyl 10 Mg Supp.Rect) 10 mg [place] BEDTIME PRN PRN Reason: Constipation Calcium Carbonate (Calcium Carbonate 750 Mg Tab.Chew) 750 mg PO Q4H PRN PRN Reason: Heartburn Clozapine (Clozapine 25 Mg Tablet) 50 mg PO TID [facility] Last Admin: 04/26/25 09:27 Dose: 50 mg Documented By: DEONNA Dextrose (Dextrose 50 % 25 Gm/50 Ml Syringe) 25 gm IVPUSH Q15M PRN; Protocol PRN Reason: per Hypoglycemia Standing Ord. Docusate Sodium (Docusate Sodium 100 Mg/10 Ml Liquid) 100 mg G-TUBE BID [facility] Last Admin: 04/26/25 09:34 Dose: Not Given Documented By: DEONNA Non-Admin Reason: Patient Refused Enoxaparin Sodium (Enoxaparin Sodium 40 Mg/0.4 Ml Syringe) 40 mg SUBCUT Q24H [facility] Last Admin: 04/26/25 09:27 Dose: 40 mg Documented By: DEONNA Fluoxetine HCl (Fluoxetine Hcl 20 Mg Capsule) 40 mg PO BEDTIME [facility] On Hold: 02/22/25 14:23 Last Admin: 02/21/25 22:23 Dose: Not Given Documented By: PAPITO Non-Admin Reason: pt refused Glucagon (Glucagon Hcl 1 Mg Vial) 1 mg IM Q20M PRN PRN Reason: low BG Glucose (Glucose Gel 15 Gm Gel..Gram.) 15 gm PO Q15M PRN; Protocol PRN Reason: per Hypoglycemia Standing Ord. Hydralazine HCl (Hydralazine Hcl 20 Mg/Ml Vial) 5 mg IVPUSH Q6H PRN; Protocol PRN Reason: htn Last Admin: 02/23/25 17:30 Dose: 5 mg Documented By: JAYME Insulin Glargine (Insulin Glargine,Hum.Rec.Anlog 100 Unit/Ml 10 Ml Vial) 30 unit SUBCUT DAILY [facility] On Hold: 03/14/25 09:00 Insulin Human Lispro (Insulin Lispro 100 Unit/Ml 3 Ml Vial) 0 unit SUBCUT QIDACHS [facility]; Protocol Last Admin: 04/26/25 11:18 Dose: 4 unit Documented By: DEONNA Magnesium Hydroxide (Milk Of Magnesia 30 Ml Oral.Susp) 30 ml PO DAILY PRN PRN Reason: Constipation Last Admin: 04/18/25 15:58 Dose: 30 ml Documented By: COLOKSANA Melatonin (Melatonin 3 Mg Tablet) 6 mg PO BEDTIME PRN PRN Reason: Insomnia Last Admin: 04/18/25 20:37 Dose: 6 mg Documented By: CAROLINA Metoprolol Tartrate (Metoprolol Tartrate 12.5 Mg Halftab) 12.5 mg PO BID [facility]; Protocol Last Admin: 04/26/25 09:26 Dose: 12.5 mg Documented By: DEONNA Naloxone HCl (Naloxone Hcl 0.4 Mg/Ml Vial) 0.04 mg IVPUSH Q5M PRN PRN Reason: Excessive sedation or RR < 8 Nystatin (Nystatin Powder 15 Gm Bottle) 1 appl TOPICAL BID [facility]; Protocol Last Admin: 04/26/25 09:34 Dose: Not Given Documented By: DEONNA Non-Admin Reason: Patient Refused Omeprazole (Omeprazole/Na Bicarb Oral Susp 20 Mg/10 Ml Ud Cup) 20 mg G-TUBE DAILY@0630 [facility] Last Admin: 04/26/25 05:47 Dose: 20 mg Documented By: WES Perphenazine (Perphenazine 2 Mg Tablet) 2 mg PO BID [facility] Last Admin: 04/26/25 09:27 Dose: 2 mg Documented By: DEONNA Perphenazine (Perphenazine 4 Mg Tablet) 4 mg PO BID [facility] Last Admin: 04/26/25 09:26 Dose: 4 mg Documented By: DEONNA Senna (Sennosides 8.6 Mg Tablet) 8.6 mg PO DAILY [facility] Last Admin: 04/26/25 09:26 Dose: 8.6 mg Documented By: DEONNA Sodium Biphosphate/Sodium Phosphate (Sodium Phosphate,[place]-Dibasic 133 Ml Enema) 133 ml [place] DAILY PRN PRN Reason: Constipation Last Admin: 03/11/25 12:18 Dose: 133 ml Documented By: STEPHANE Trazodone HCl (Trazodone Hcl 50 Mg Tablet) 50 mg PO BEDTIME MRX1 PRN PRN Reason: Insomnia Last Admin: 04/21/25 21:11 Dose: 50 mg Documented By: SHINE Valproic Acid (Valproic Acid 250 Mg Capsule) 500 mg PO BID [facility] Last Admin: 04/26/25 09:26 Dose: 500 mg Documented By: DEONNA Labs 04/20/25 12:29 04/20/25 12:29 Labs: Laboratory Results - last 24 hr 04/25/25 04/25/25 04/26/25 16:29 19:35 07:15 POC Glucose 220 H 266 H 194 H 04/26/25 11:03 POC Glucose 221 H Assessment and Plan (1) Schizoaffective disorder: Status: Acute (2) Alzheimer's dementia: Status: Acute Plan 69-year-old male with past medical history significant for schizoaffective disorder with psychotic features, MDD, T2 dm, GERD who presented to the ED on 02/14 for multiple falls. Patient was originally going to be admitted to Geriatric Psychiatry unit due to agitation and psychosis, however on 02/16 patient found to be encephalopathic and hypoxic. CT chest showed prominent amount of secretions in the airways greater than left lower lobe with bronchial wall thickening. Pain it was treated with IV Unasyn. Patient's course was complicated by dysphagia as well as not eating, after discussions with guardian Ashley Vo in February, agreed in placing G-tube, with G-tube placement on 03/02. During course, patient had psychiatric medications adjusted, ultimately placed on fluoxetine, perphenazine, valproic acid, clozapine and Valium. On 04/20 patient was having episodes of hypoxia and cough, with viral panel testing positive for influenza, completed Tamiflu on 04/25. Awaiting Discharge to Rehab Schizoaffective disorder with psychotic features, chronic -Intermittent refusal of psychiatric medications and vital sign monitoring. Continue current regimen: fluoxetine, perphenazine (Trilafon), valproic acid (Depakote), clozapine (Clozaril), and valium. Psych follow-up as needed. Alzheimer dementia -continue delirium precautions, monitor for any behavioral disturbances Dysphagia, s/p G-tube placement Evaluated by speech and swallow; recommended nectar-thickened liquids. Initially had poor oral intake and required TPN. Underwent G-tube placement on 03/02/2025. Tube feeds are being held while he is able to eat orally. Currently tolerating oral intake with NDD2 diet and nectar-thickened liquids. Other Medical Issues: Diabetes, chronic, fluctuating: continue Lantus 30 units; continue sliding scale insulin. Hypertension: No current management; blood pressure within normal limits Total time managing care of this patient today: 35 minutes. Quality Stroke Does the patient have a stroke diagnosis?: No VTE Prior VTE?: No VTE Risk Level:: Medical - moderate - high VTE Device Contraindication: Treatment Not Indicated VTE Drug Contraindication: N/A - Med Ordered
[2025-04-26 15:57] VITALS: BP 138/65; PULSE 63; RESP 18; TEMP 36.4; O2SAT 95
[2025-04-26 16:45] LABS: Glucose, Whole Blood 184 mg/dL (60-115)
[2025-04-26 20:00] VITALS: BP 121/59; PULSE 70; RESP 18; TEMP 36.3; O2SAT 98
[2025-04-26 20:30] LABS: Glucose, Whole Blood 179 mg/dL (60-115)
[2025-04-27 03:15] VITALS: BP 131/61; PULSE 78; RESP 16; TEMP 36.2; O2SAT 98
[2025-04-27 07:13] VITALS: BP 116/62; PULSE 64; RESP 16; TEMP 36.5; O2SAT 96
[2025-04-27 07:18] LABS: Glucose, Whole Blood 217 mg/dL (60-115)
--- NOTE | 2025-04-27 08:40 | MHC.CM.PN ---
Patient cleared for dc to [facility]. BLS transport scheduled for 11am. , RN, and guardian aware. IMM delivered.
[2025-04-27] MEDS: Metoprolol Tartrate 12.5 MG HALFTAB PO (09:09)
--- NOTE | 2025-04-27 09:43 | PC.NURSE ---
Santy is alert and oriented, easily redirected. Consistent with please and thank-you, is nervous today about discharge.
[2025-04-27 10:51] VITALS: BP 140/60; PULSE 75; RESP 16; TEMP 36.6; O2SAT 96
--- NOTE | 2025-04-27 11:00 | P.DS_ITS ---
DS: Providers Provider Date of Service: 04/27/25 Date of admission: 02/16/25 18:06 Date of discharge: 04/27/25 Primary care physician: Cuco Ledezma DO Consults: 02/14/25 17:23 ED CARE Team Crisis Consult Stat Comment: Reason for consultation: SI on section 12? 02/14/25 18:53 Consult to Psychiatry Stat Consulting Provider: [facility] [place] Psych Covering Reason for consultation: Medication Management 02/18/25 15:35 Consult to Pulmonology Routine Consulting Provider: [facility] [place] Pulmonology Services Reason for consultation: hypoxemic respiratory failure /asp pneumonia Has provider been notified: No 02/20/25 14:42 Consult to Neurology Routine Consulting Provider: [facility] Reason for consultation: encephalopathy unclear etiology 02/20/25 17:05 Consult to Wound Care Routine Reason for consultation: Right Heel - Redness - nonblanchable Stage 1 02/27/25 12:13 Consult to General Surgery Routine Consulting Provider: [facility] [place] General Surgeons Reason for consultation: poor intake/aspiration, ?gtube, guardian consented 03/06/25 08:28 Inpt CARE Team Crisis Consult Routine Comment: Reason for consultation: eval 04/08/25 01:52 Consult to Wound Care Routine Consulting Provider: [facility] [place] Wound Care Management Reason for consultation: right heel redness nonblanchable/coccyx/funagl to groin 04/18/25 00:58 Consult to Wound Care Routine Consulting Provider: [facility] [place] Wound Care Management Reason for consultation: stage 1 R heel, redness to coccyx/left heel. fungal to groin 04/19/25 01:33 Consult to Wound Care Routine Consulting Provider: [facility] [place] Wound Care Management Reason for consultation: stage 1 to R heel, fungal to groin, Redness to buttocks, redness to L heel DS: Diagnosis Discharge Diagnosis (1) Schizoaffective disorder: Status: Acute (2) Alzheimer's dementia: Status: Acute DS: Summary Hospital Course Hospital Course: 69-year-old male with past medical history significant for schizoaffective disorder with psychotic features, MDD, T2 dm, GERD who presented to the ED on 02/14 for multiple falls. Patient was originally going to be admitted to Geriatric Psychiatry unit due to agitation and psychosis, however on 02/16 patient found to be encephalopathic and hypoxic. CT chest showed prominent amount of secretions in the airways greater than left lower lobe with bronchial wall thickening. Pain it was treated with IV Unasyn. Patient's course was complicated by dysphagia as well as not eating, after discussions with guardian Ashley Vo in February, agreed in placing G-tube, with G-tube placement on 03/02. During course, patient had psychiatric medications adjusted, ultimately placed on fluoxetine, perphenazine, valproic acid, clozapine and Valium. On 04/20 patient was having episodes of hypoxia and cough, with viral panel testing positive for influenza, started on Tamiflu and completed treatment on 04/25. On day of discharge, patient on room air, eating modified diet, stable to be discharged to long-term facility. Dysphagia, s/p G-tube placement Evaluated by speech and swallow; recommended nectar-thickened liquids. Initially had poor oral intake and required TPN. Underwent G-tube placement on 03/02/2025. Tube feeds are being held while he is able to eat orally. Currently tolerating oral intake with NDD2 diet and nectar-thickened liquids. Schizoaffective disorder with psychotic features, chronic -Intermittent refusal of psychiatric medications and vital sign monitoring. Continue current regimen: fluoxetine, perphenazine (Trilafon), valproic acid (Depakote), clozapine (Clozaril), and valium. Psych follow-up as needed. Alzheimer dementia -continue delirium precautions, monitor for any behavioral disturbances Other Medical Issues: Diabetes, uncontrolled: continue Lantus 30 units; continue sliding scale insulin. Hypertension: No current management; blood pressure within normal limits Time Attestation Discharge Coordination Time (in mins): 35 minutes Quality: Safe Use of Opioids Does Pt have an Active Cancer Diagnosis on the Problem List?: No Quality: Stroke Does the patient have a stroke diagnosis?: No Physical Exam Exam: Exam: General: AxOx3, No acute distress, frail Head: AT/NC ENT: Moist mucous membranes Neck: supple CVS; RRR, S1 S2 normal Lungs: Clear bilateral breath sounds, no wheezes or crackles Abd: Soft non tender, non distended Ext: No edema and no calf tenderness MSK: moving all 4 limbs Skin: No cyanosis or edema Psych: Cooperative with exam Neurology: no focal deficit Vital Signs: Vital Signs: Last Vital Signs Temp 97.9 F 04/27/25 10:51 Pulse 75 04/27/25 10:51 Resp 16 04/27/25 10:51 BP 140/60 H 04/27/25 10:51 Pulse Ox 96 04/27/25 10:51 O2 Del Method Room Air 04/27/25 10:51 O2 Flow Rate 3 03/07/25 23:35 BMI result Body Mass Index 23.3 DS: Data Data Completed and Pending Labs on day of discharge: Laboratory Results - last 24 hr 04/26/25 04/26/25 04/26/25 11:03 16:41 20:17 POC Glucose 221 H 184 H 179 H 04/27/25 07:12 POC Glucose 217 H Discharge Plan Discharge Anticipated Discharge Date/Time: 04/23/25 11:26 Patient Disposition: Xfer SNF Discharge Diagnosis: Dysphagia s/p G tube placement, schizoaffective disorder w/ psychotic features Referrals: Cuco Ledezma DO [Primary Care Provider, Hospitalist] - 1 Week Discharge Medications: New insulin glargine [Lantus U-100 Insulin] 100 unit/mL Solution 30 unit subcut DAILY 30 Days Qty: 9 0RF trazodone 50 mg Tablet 50 mg PO BEDTIME MRX1 PRN (Reason: Insomnia) 30 Days Qty: 30 0RF valproic acid 250 mg Capsule 500 mg PO BID 30 Days Qty: 120 0RF nystatin [Nyamyc] 100,000 unit/gram Powder 1 appl topical BID 30 Days Qty: 10 0RF Protocol: Apply to: Apply to: affected area clozapine 25 mg Tablet 50 mg PO TID 30 Days Qty: 180 0RF insulin lispro [Admelog U-100 Insulin lispro] 100 unit/mL Solution See Protocol subcut QIDACHS 30 Days Qty: 3 0RF Protocol: Insulin Correction Scale Less than or equal to 110 ---- Give (units): 0 111 to 150 Give (units): 0 151 to 200 Give (units): 2 201 to 250 Give (units): 4 251 to 300 Give (units): 6 301 to 350 Give (units): 8 Greater than 350 Give (units): 10 Call MD if Blood Glucose > : 350 Continued perphenazine 4 mg tablet 4 mg PO BID Rx Instructions: TOTAL DOSE OF 6MG (COMBO WITH 2MG TABS) lorazepam 1 mg tablet 1 mg PO BID fluoxetine 40 mg Capsule 40 mg PO QPM Fleet Enema 19-7 gram/118 mL Enema 118 ml ME DAILY PRN (Reason: Constipation) Rx Instructions: Only if Bisacodyl is ineffective docusate sodium [Colace] 100 mg Capsule 100 mg PO BID sennosides [senna] 8.6 mg Tablet 8.6 mg PO DAILY perphenazine 2 mg Tablet 2 mg PO BID Patient Comments: TOTAL DOSE OF 6MG (COMBO WITH 4MG TABS) diazepam [Valium] 2 mg Tablet 3 mg PO BID pantoprazole 40 mg Tablet,Delayed Release (Dr/Ec) 40 mg PO DAILY metformin 1,000 mg Tablet 1,000 mg PO BID metoprolol tartrate 25 mg Tablet 12.5 mg PO BID Trulicity 3 mg/0.5 mL Pen Injector 3 mg SUBCUT QWEEK glucagon 1 mg/0.2 mL Solution 1 mg SUBCUT Q20M PRN (Reason: low BG) Rx Instructions: until target blood sugar attained Discontinued clozapine 100 mg tablet 300 mg PO TID divalproex 500 mg Tablet,Delayed Release (Dr/Ec) 500 mg PO BID insulin glargine [Lantus Solostar U-100 Insulin] 100 unit/mL (3 mL) Insulin Pen 24 unit SUBCUT QAM Discharge Orders: Discharge Order (Routine); Ordered 04/27/25 Ordered By: Lamonte Melchor Activity on Discharge: As tolerated Stand Alone Forms: Patient Portal Discharge page Print Language: Thai Care Plan Goals: continue treatment for influenza A, monitor schizoaffective disorder and Alzheimer dementia Health Concerns: Schizoaffective disorder with episodes of psychosis Alzheimer Dementia Plan of Treatment: continue fluoxetine, perphenazine, valproic acid, clozapine and valium Assessment: 69-year-old male with a history of schizoaffective disorder (with psychotic features), major depressive disorder, diabetes, and GERD presented to the ED on 02/14/2025 after multiple falls. He was admitted for acute multifactorial encephalopathy, which was complicated by acute hypoxic respiratory failure secondary to aspiration pneumonia on 02/16/2025. On 04/20 presented w/ SOB and generalized weakness, tested positive for FLU-A and completed Tamiflu on 04/25. At this time patient stable. Patient Instructions: Fall Prevention (ED)
[2025-04-27 11:21] VITALS: BP 140/60; PULSE 75; RESP 16; TEMP 36.5; O2SAT 96
[2025-04-27 11:28] LABS: Glucose, Whole Blood 211 mg/dL (60-115)
== END 2025-04-27 11:51 | disposition skilled nursing facility (03) | DRG 177 ==
LOC: HO.ED 17:33 → HO.PGERI 02-16 17:42 → HO.ED 02-16 18:17 → HO.EDOVER 02-16 21:20 → HO.S3 02-17 08:18 → HO.IMC 02-18 01:01 → HO.S3 03-09 19:22
PROVIDERS: Emergency Medicine; Hospitalist; Internal Medicine; Nurse Practitioner Family; Physician Assistant Medical; Social Worker; Surgery; Admitting Provider Internal Medicine; Emergency Provider Emergency Medicine; PCP Hospitalist; Visit Provider Student in an Organized Health Care Education/Training Program
PROC: 0DH63UZ Insertion of Feeding Device into Stomach, Percutaneous Approach (ICD-10-PCS; CPT 43246; principal; 2025-03-02 13:30)
DX: J69.0 Pneumonitis due to inhalation of food and vomit (principal); G92.8 Other toxic encephalopathy; J96.01 Acute respiratory failure with hypoxia; R45.851 Suicidal ideations; F25.9 Schizoaffective disorder, unspecified; W19.XXXA Unspecified fall, initial encounter; G30.9 Alzheimer's disease, unspecified; J10.01 Influenza due to other identified influenza virus with the same other identified influenza virus pneumonia; R13.10 Dysphagia, unspecified; F02.80 Dementia in other diseases classified elsewhere, unspecified severity, without behavioral disturbance, psychotic disturbance, mood disturbance, and anxiety; R29.6 Repeated falls; E11.65 Type 2 diabetes mellitus with hyperglycemia; Z20.822 Contact with and (suspected) exposure to COVID-19; Z91.81 History of falling; Z75.1 Person awaiting admission to adequate facility elsewhere; Z79.4 Long term (current) use of insulin; Z79.84 Long term (current) use of oral hypoglycemic drugs; Z79.85 Long-term (current) use of injectable non-insulin antidiabetic drugs; Z79.899 Other long term (current) drug therapy
CPT/HCPCS: 36415; 36600; 70450; 71045; 71275; 72125; 80048; 80053; 80061; 80076; 80159; 80164; 80307; 81001; 81003; 82040; 82140; 82607; 82803; 82947; 83036; 83605; 83735; 83930; 83935; 84100; 84300; 84443; 84478; 84484; 85007; 85025; 85027; 85048; 86140; 87040; 87502; 87633; 87635; 92526; 92610; 93005; 93971; 97162; 99285; J0295; J0360; J0696; J1200; J1271; J1630; J1650; J2003; J2359; J2704; J3360; J7120; P9047; Q9967; S9485

== ENCOUNTER → 2025-02-14 09:01 | Outpatient (BNV) | payer MEDICARE, MEDICAID, SELFPAY | PROVIDERS: Emergency Provider Emergency Medicine; Visit Provider Nurse Practitioner Psychiatric/Mental Health | DX: F29 Unspecified psychosis not due to a substance or known physiological condition (principal); W19.XXXA Unspecified fall, initial encounter; R45.851 Suicidal ideations | CPT/HCPCS: 99282 ==

== ENCOUNTER → 2025-02-14 09:01 | Outpatient (BNV) | payer MEDICARE, MEDICAID, SELFPAY | PROVIDERS: Emergency Provider Emergency Medicine; Visit Provider Internal Medicine | DX: G30.9 Alzheimer's disease, unspecified (principal); F02.80 Dementia in other diseases classified elsewhere, unspecified severity, without behavioral disturbance, psychotic disturbance, mood disturbance, and anxiety; F25.9 Schizoaffective disorder, unspecified | CPT/HCPCS: 99223; 99231; 99232; 99499 ==

== ENCOUNTER → 2025-02-14 09:05 | Outpatient (BNV) | payer MEDICARE, MEDICAID, SELFPAY | PROVIDERS: Emergency Provider Emergency Medicine; Visit Provider Internal Medicine Cardiovascular Disease | DX: R94.31 Abnormal electrocardiogram [ECG] [EKG] (principal); W19.XXXA Unspecified fall, initial encounter | CPT/HCPCS: 93010 ==

== ENCOUNTER → 2025-02-14 09:55 | Outpatient (BNV) | payer MEDICARE, MEDICAID, SELFPAY | PROVIDERS: Emergency Provider Emergency Medicine; Visit Provider Radiology Diagnostic Radiology | DX: M47.812 Spondylosis without myelopathy or radiculopathy, cervical region (principal); M48.02 Spinal stenosis, cervical region; G31.89 Other specified degenerative diseases of nervous system; J01.30 Acute sphenoidal sinusitis, unspecified; W19.XXXA Unspecified fall, initial encounter | CPT/HCPCS: 70450; 72125 ==

== ENCOUNTER → 2025-02-16 15:04 | Outpatient (BNV) | payer MEDICARE, MEDICAID, SELFPAY | PROVIDERS: Admitting Provider Social Worker; Emergency Provider Emergency Medicine; Visit Provider Radiology Diagnostic Radiology | DX: R91.8 Other nonspecific abnormal finding of lung field (principal); J98.09 Other diseases of bronchus, not elsewhere classified; R41.82 Altered mental status, unspecified; J98.11 Atelectasis | CPT/HCPCS: 70450; 71045; 71275 ==

== ENCOUNTER 2025-02-16 18:06 | Outpatient (BNV) | payer MEDICARE, MEDICAID, SELFPAY | END 2025-03-03 18:20 | PROVIDERS: Admitting Provider Internal Medicine; Emergency Provider Emergency Medicine; PCP Hospitalist; Visit Provider Radiology Diagnostic Radiology | DX: I82.612 Acute embolism and thrombosis of superficial veins of left upper extremity (principal) | CPT/HCPCS: 93971 ==

== ENCOUNTER 2025-02-16 18:06 | Outpatient (BNV) | payer MEDICARE, MEDICAID, SELFPAY | END 2025-02-22 16:23 | PROVIDERS: Admitting Provider Internal Medicine; Emergency Provider Emergency Medicine; PCP Hospitalist; Visit Provider Internal Medicine Cardiovascular Disease | DX: I48.92 Unspecified atrial flutter (principal); I44.2 Atrioventricular block, complete | CPT/HCPCS: 93010 ==

== ENCOUNTER 2025-02-16 18:06 | Outpatient (BNV) | payer MEDICARE, MEDICAID, SELFPAY | END 2025-04-20 09:30 | PROVIDERS: Admitting Provider Internal Medicine; Emergency Provider Emergency Medicine; PCP Hospitalist; Visit Provider Radiology Diagnostic Radiology | DX: R05.9 Cough, unspecified (principal) | CPT/HCPCS: 71045 ==

== ENCOUNTER 2025-02-16 18:06 | Outpatient (BNV) | payer MEDICARE, MEDICAID, SELFPAY | END 2025-02-23 18:19 | PROVIDERS: Admitting Provider Internal Medicine; Emergency Provider Emergency Medicine; PCP Hospitalist; Visit Provider Internal Medicine Cardiovascular Disease | DX: I48.92 Unspecified atrial flutter (principal); I44.2 Atrioventricular block, complete | CPT/HCPCS: 93010 ==

== ENCOUNTER 2025-02-16 18:06 | Outpatient (BNV) | payer MEDICARE, MEDICAID, SELFPAY | END 2025-02-18 02:37 | PROVIDERS: Admitting Provider Internal Medicine; Emergency Provider Emergency Medicine; PCP Hospitalist; Visit Provider Internal Medicine | DX: R00.0 Tachycardia, unspecified (principal) | CPT/HCPCS: 93010 ==

== ENCOUNTER → 2025-02-16 18:06 | Outpatient (BNV) | payer MEDICARE, MEDICAID, SELFPAY | PROVIDERS: Admitting Provider Internal Medicine; Emergency Provider Emergency Medicine; PCP Hospitalist; Visit Provider Internal Medicine | DX: J18.9 Pneumonia, unspecified organism (principal); R09.02 Hypoxemia; F25.9 Schizoaffective disorder, unspecified | CPT/HCPCS: 99223 ==

== ENCOUNTER → 2025-02-16 18:06 | Outpatient (BNV) | payer MEDICARE, MEDICAID, SELFPAY | PROVIDERS: Admitting Provider Internal Medicine; Emergency Provider Emergency Medicine; PCP Hospitalist; Visit Provider Physician Assistant Surgical | DX: F29 Unspecified psychosis not due to a substance or known physiological condition (principal); F25.9 Schizoaffective disorder, unspecified; Z43.1 Encounter for attention to gastrostomy | CPT/HCPCS: 99222; 99232; 99499 ==